=== PATIENT | male | born 1950 | race Caucasian/White ===

== ENCOUNTER 2020-09-27 12:16 | Outpatient (NON) | payer BC, SELFPAY ==
[2020-09-28 20:04] LABS: SARS-CoV-2 RNA PCR Negative
== END 2020-09-27 12:17 ==
PROVIDERS: PCP Family Medicine Adolescent Medicine; Visit Provider Family Medicine Adolescent Medicine
DX: Z20.828 Contact with and (suspected) exposure to other viral communicable diseases (principal); R05 Cough; R52 Pain, unspecified
CPT/HCPCS: 87635; C9803; U0003

== ENCOUNTER → 2021-03-02 14:19 | Outpatient (CLI) | payer BC, SELFPAY ==
--- NOTE | ~2021-03-02 | XR_ITS ---
EXAMINATION: XR knee RT 2V DATE: 03/02/2021 14:57 INDICATION: Right knee pain. TECHNIQUE: 2 views of right knee standing were obtained. COMPARISON: None. FINDINGS: Bone alignment is normal. No fracture. There is mild tricompartmental osteoarthritis charac terized by tiny marginal osteophytes. No knee joint effusion. IMPRESSION: 1. Mild right knee osteoarthritis. Reviewed, dictated and finalized at location B.
--- NOTE | ~2021-03-02 | XR_ITS ---
EXAMINATION: XR lumbar spine min 4V DATE: 03/02/2021 14:57 INDICATION: Lumbar spondylosis. TECHNIQUE: 5 views of lumbar spine including flexion and extension views were obtained. COMPARISON: Lumbar spine MRI 04/08/2019, thoracic spine radiographs 03/12/2013 FINDINGS: S1 is a transitional segment. There is 14 degrees levoscoliosis of lumbar spine. There is 5 mm anterolisthesis of L5 on S1. There is no abnormal motion with flexion or extension. There is mild chronic anterior wedging of T12 and L1 vertebral bodies. There is moderately decreased disc height a t L2-L3, mildly decreased disc height at L3-L4, and moderately decreased disc height at L4-L5 and L5- S1. There are endplate osteophytes at all levels. There is severe facet joint osteoarthritis in lower lumbar spine. IMPRESSION: 1. Moderate lumbar spondylosis. 2. Lumbar levoscoliosis. Reviewed, dictated and finalized at location B.
== END ==
DX: M41.9 Scoliosis, unspecified (principal); M17.11 Unilateral primary osteoarthritis, right knee
CPT/HCPCS: 72110; 73560

== ENCOUNTER → 2021-03-16 13:13 | Outpatient (CLI) | payer BC, SELFPAY ==
--- NOTE | ~2021-03-16 | MR_ITS ---
EXAMINATION: MR lumbar spine wo con DATE: 03/16/2021 14:02 INDICATION: Low back pain. Lumbar spondylosis. TECHNIQUE: Magnetic resonance imaging (MRI) of the lumbar spine was performed without intravenous con trast. Sequences included sagittal T2-weighted FSE, sagittal T2-weighted FS FSE, sagittal T1-weighted FSE, and axial T2-weighted FSE. COMPARISON: Lumbar spine MRI 04/08/2019, thoracic spine radiographs 03/12/2013 FINDINGS: There is 11 degrees levoscoliosis of lumbar spine. S1 is a transitional segment. There is 5 mm anterolisthesis of L5 on S1. Vertebral body heights are normal. There is moderately decreased dis c height at L2-L3, mildly decreased disc height at L3-L4, moderately decreased disc height at L4-L5 a nd L5-S1 with endplate remodeling. The distal spinal cord signal intensity is normal. The conus medul kaitlin is at L1. The following disc levels are specifically discussed: L1-L2: The disc does not extend beyond the endplate margin. There is mild bilateral facet joint osteo arthritis. There is no neural foraminal stenosis. There is no central canal stenosis. L2-L3: The disc is bulging. There is mild bilateral facet joint osteoarthritis. There is mild left ne ural foraminal stenosis. There is mild central canal stenosis. L3-L4: The disc is bulging and has an annular fissure. There is mild bilateral facet joint osteoarthr itis. There is mild bilateral neural foraminal stenosis. There is mild central canal stenosis. L4-L5: The disc is bulging. There is severe bilateral facet joint osteoarthritis. There is mild bilat eral neural foraminal stenosis. There is mild central canal stenosis. L5-S1: The disc is bulging with superimposed right subarticular zone extrusion. There is severe bilat eral facet joint osteoarthritis. There is moderate and mild left neural foraminal stenosis. There is mild central canal stenosis. IMPRESSION: 1. Moderate lumbar spondylosis. 2. Lumbar levoscoliosis. Reviewed, dictated and finalized at location A.
== END ==
DX: M47.816 Spondylosis without myelopathy or radiculopathy, lumbar region (principal); M41.86 Other forms of scoliosis, lumbar region
CPT/HCPCS: 72148

== ENCOUNTER → 2021-03-22 09:23 | Outpatient (CLI) | payer BC, SELFPAY ==
--- NOTE | ~2021-03-22 | MMUS_ITS ---
EXAMINATION: MM diagnostic mammo unilat RT, US breast RT limited HISTORY: Right breast fullness with tenderness for 3 months TECHNIQUE: Additional 3-D tomosynthesis images of the right breast were performed and synthetic 2-D i mages were generated. Comparison left MLO view performed. CAD analysis was submitted and interpreted. High resolution Limited right breast ultrasound was performed. COMPARISON: None BREAST PARENCHYMAL COMPOSITION: Breast composed of scattered areas of fibroglandular density FINDINGS: MAMMOGRAPHIC FINDINGS: There is gynecomastia bilaterally, asymmetrically more prominent on the right. No discrete mass, susp icious cluster of calcifications or architectural distortion. ULTRASOUND: Limited right breast ultrasound: Normal heterogeneous echotexture without focal solid or cystic mass. IMPRESSION: 1. No evidence for malignancy in the right breast. 2. Recommend follow-up clinical management for gynecomastia. BI-RADS Category 2: Benign finding(s). Reviewed, dictated and finalized at location A. IMPRESSION: 1. No evidence for malignancy in the right breast. 2. Recommend follow-up clinical management for gynecomastia. BI-RADS Category 2: Benign finding(s).
== END ==
PROVIDERS: PCP Family Medicine Adolescent Medicine; Visit Provider Family Medicine Adolescent Medicine
DX: N64.4 Mastodynia (principal); Z80.3 Family history of malignant neoplasm of breast
CPT/HCPCS: 76642; 77065

== ENCOUNTER → 2021-06-14 11:50 | Outpatient (CLI) | payer BC, MEDICARE, SELFPAY ==
--- NOTE | ~2021-06-14 | XR_ITS ---
EXAMINATION: XR chest 2V DATE: 06/14/2021 12:22 INDICATION: Right posterior chest pain. TECHNIQUE: Frontal and lateral views of the chest were obtained. COMPARISON: Chest 2 views 11/03/2013, CT abdomen and pelvis 06/14/2021 FINDINGS: The chest demonstrates clear lungs without pneumonia, pleural effusion, or pneumothorax. Th e heart size is normal. There is a moderate-sized hiatal hernia. IMPRESSION: 1. Moderate-sized hiatal hernia. Reviewed, dictated and finalized at location A.
--- NOTE | ~2021-06-14 | CT_ITS ---
EXAMINATION: CT abdomen w con DATE: 06/14/2021 12:22 INDICATION: Epigastric abdominal pain. Nausea. TECHNIQUE: Computed tomography (CT) of the abdomen was performed with 100 mL Omnipaque 350 intravenou s contrast. Automated exposure control and iterative reconstruction technique were employed. The dose -length product was 315.11 mGy-cm. COMPARISON: CT abdomen 10/07/2008 FINDINGS: The visualized portions of the lung bases demonstrate mild atelectasis. No pleural effusion . The heart size is normal. No pericardial effusion. There are calcifications of the aortic valve. Th ere is a moderate-sized sliding hiatal hernia. The liver, gallbladder, spleen, pancreas, adrenal glan ds, and left kidney are normal. There is a 7 mm stone in right kidney. There are no dilated loops of bowel. The appendix is normal. There are no pathologically enlarged lymph nodes. There is no free int raperitoneal fluid. There is severe lumbar spondylosis. Lumbar levoscoliosis is noted. IMPRESSION: 1. Moderate-sized sliding hiatal hernia. 2. Nonobstructing right kidney stone. Reviewed, dictated and finalized at location A.
[2021-06-14 12:08] LABS: Estimated Glomerular Filt Rate > 60
== END ==
PROVIDERS: PCP Family Medicine Adolescent Medicine; Visit Provider Family Medicine Adolescent Medicine
DX: R10.13 Epigastric pain (principal); M54.9 Dorsalgia, unspecified; K44.9 Diaphragmatic hernia without obstruction or gangrene; N20.0 Calculus of kidney
CPT/HCPCS: 71046; 74160; Q9967

== ENCOUNTER → 2022-03-08 13:00 | Outpatient (CLI) | payer BC, MEDICARE, SELFPAY ==
--- NOTE | ~2022-03-08 | CT_ITS ---
EXAMINATION: CT abdomen pelvis w con DATE: 03/08/2022 13:27 INDICATION: Left upper quadrant abdominal pain. Hiatal hernia. Diarrhea. TECHNIQUE: Computed tomography (CT) of the abdomen and pelvis was performed with 100 mL Omnipaque 300 intravenous contrast. Automated exposure control and iterative reconstruction technique were employe d. The dose-length product was 580.95 mGy-cm. COMPARISON: CT abdomen 06/14/2021 FINDINGS: The visualized portions of the lung bases demonstrate mild atelectasis. No pleural effusion . The heart size is normal. There are calcifications of aortic valve. No pericardial effusion. There is a moderate-sized sliding hiatal hernia. The liver, spleen, gallbladder, pancreas, adrenal glands, and left kidney are normal. There is an 8 mm stone in right kidney. There are no dilated loops of bow el. The appendix is normal. There are no pathologically enlarged lymph nodes. There is no free intrap eritoneal fluid. There is severe lumbar spondylosis. There is mild chronic anterior wedging of T11 an d T12 vertebral bodies. IMPRESSION: 1. Moderate-sized sliding hiatal hernia. 2. Nonobstructing right kidney stone. Reviewed, dictated and finalized at location A.
[2022-03-08 13:17] LABS: Estimated Glomerular Filt Rate > 60
== END ==
PROVIDERS: PCP Family Medicine Adolescent Medicine; Visit Provider Internal Medicine Gastroenterology
DX: K44.9 Diaphragmatic hernia without obstruction or gangrene (principal); R19.7 Diarrhea, unspecified; R10.11 Right upper quadrant pain; N20.0 Calculus of kidney
CPT/HCPCS: 74177; Q9967

== ENCOUNTER → 2022-07-15 10:48 | Outpatient (CLI) | payer BC, SELFPAY ==
--- NOTE | ~2022-07-15 | US_ITS ---
US scrotum doppler INDICATION: Epididymitis. TECHNIQUE: Testicular sonogram utilizing grayscale and color Doppler FINDINGS: The testes are normal in size and appearance. No focal lesions are seen. The right testes measures 4.5 x 2.3 x 3.5 cm centimeters, and the left testis measures 5.4 x 2.5 x 3.4 cm cm. There is normal vascular flow to both testes. There are bilateral epididymal cysts, largest in the left epididymis measuring up to 2.2 cm. There is a small right hydrocele. IMPRESSION: 1. Small right hydrocele. 2: Small bilateral epididymal cysts. Reviewed, dictated and finalized at location B.
== END ==
PROVIDERS: PCP Family Medicine Adolescent Medicine; Visit Provider Nurse Practitioner Adult Health
DX: N45.1 Epididymitis (principal); N43.3 Hydrocele, unspecified
CPT/HCPCS: 76870; 93976

== ENCOUNTER → 2023-05-24 11:34 | Outpatient (CLI) | payer BC, SELFPAY ==
--- NOTE | ~2023-05-24 | MR_ITS ---
MRI of the lumbar spine Clinical History: Spondylosis Technique: Axial T2-weighted images, and sagittal T1-weighted, T2-weighted, and T2 fat-sat images wer e acquired. COMPARISON: 03/16/2021 Findings: No fracture identified. 7 mm anterolisthesis of L5 over S1 is present. No suspicious bone m arrow signal abnormality seen. At L1-L2, there is no disc bulge or herniation. No spinal canal stenosis or neural foraminal narrowin g. At L2-L3, there is moderate degenerative disc narrowing with minimal disc bulge and mild facet arthro karli. No central canal stenosis. There is moderate left neural foraminal narrowing. Right neural for amen preserved. At L3-L4, there is diffuse disc bulge and mild facet arthropathy. No central canal stenosis. There is mild to moderate right neural foraminal narrowing. Left neural foramen preserved. At L4-L5, there is diffuse disc bulge and moderate facet arthropathy. No central canal stenosis. Ther e is moderate to advanced right neural foraminal narrowing. Left neural foramen preserved. At L5-S1, there is disc uncovering/disc bulge with severe facet arthropathy. No central canal stenosi s. There is moderate to severe right neural foraminal narrowing, and moderate left neural foraminal n arrowing. Paravertebral soft tissues are unremarkable. Impression: 7 mm anterolisthesis of L5 over S1. Moderate degenerative spondylosis, as above. Reviewed, dictated and finalized at [facility]. Impression: 7 mm anterolisthesis of L5 over S1. Moderate degenerative spondylosis, as above.
== END ==
PROVIDERS: PCP Family Medicine Adolescent Medicine
DX: M47.26 Other spondylosis with radiculopathy, lumbar region (principal); G89.29 Other chronic pain; Z74.09 Other reduced mobility
CPT/HCPCS: 72148

== ENCOUNTER 2023-06-09 13:30 | Outpatient (CLI) | payer BC, SELFPAY ==
--- NOTE | ~2023-06-09 | CT_ITS ---
EXAMINATION: CT abdomen pelvis wo con DATE: 06/09/2023 13:51 INDICATION: Right flank pain. Hematuria. TECHNIQUE: Computed tomography (CT) of the abdomen and pelvis was performed without intravenous contr ast. Automated exposure control and iterative reconstruction technique were employed. The dose-length product was 188.38 mGy-cm. COMPARISON: CT abdomen and pelvis 03/08/2022 FINDINGS: The visualized portions of the lung bases demonstrate mild atelectasis. No pleural effusion . There is left atrial enlargement of the heart. No pericardial effusion. There are coronary artery c alcifications. There are calcifications of the aortic valve. There is a moderate-sized sliding hiatal hernia. The liver, gallbladder, spleen, pancreas, and adrenal glands are normal. There is cortical t hinning of the kidneys. There is mild right hydronephrosis. There is a 6 mm stone in proximal right u reter. There is diverticulosis of the colon without evidence of diverticulitis. There are no dilated loops of bowel. The appendix is normal. Aortic atherosclerosis is noted. There are no pathologically enlarged lymph nodes. There is no free intraperitoneal fluid. There is lumbar levoscoliosis and sever e spondylosis. There are bridging endplate osteophytes at multiple levels in the spine, consistent wi th diffuse idiopathic skeletal hyperostosis (DISH). IMPRESSION: 1. 6 mm stone in proximal right ureter with mild right hydronephrosis. 2. Moderate-sized sliding hiatal hernia. Reviewed, dictated and finalized at location A.
== END 2023-06-09 13:31 | disposition home or self-care (01) ==
PROVIDERS: PCP Family Medicine Adolescent Medicine; Visit Provider Family Medicine Adolescent Medicine
DX: R10.31 Right lower quadrant pain (principal); R31.9 Hematuria, unspecified; N20.1 Calculus of ureter; K44.9 Diaphragmatic hernia without obstruction or gangrene
CPT/HCPCS: 74176

== ENCOUNTER → 2023-06-10 08:30 | Outpatient (CLI) | payer BC, SELFPAY ==
--- NOTE | ~2023-06-10 | XR_ITS ---
EXAMINATION: XR abdomen/kub 1V INDICATION: Calculus of the ureter TECHNIQUE: Supine views of the abdomen were obtained on 2 radiographs. COMPARISON: CT, 06/09/2023 FINDINGS: An 8 mm stone projects in the proximal right ureter lateral to the right L2 transverse proc ess. No additional urolithiasis is identified. There is a moderate volume of stool in the proximal co bert. Severe lumbar spondylosis is noted. IMPRESSION: 1. A millimeter stone in the proximal right ureter. Reviewed, dictated and finalized at location A.
== END ==
PROVIDERS: PCP Urology; Visit Provider Urology
DX: N20.1 Calculus of ureter (principal)
CPT/HCPCS: 74018

== ENCOUNTER → 2023-06-24 10:23 | Outpatient (CLI) | payer BC, MEDICARE, SELFPAY ==
--- NOTE | ~2023-06-24 | XR_ITS ---
EXAMINATION: XR abdomen/kub 1V DATE: 06/24/2023 10:40 INDICATION: Right ureteral stone. TECHNIQUE: A supine view of the abdomen on 2 radiographs was obtained. COMPARISON: CT abdomen and pelvis 06/09/2023 FINDINGS: There are no dilated loops of bowel. There is no visible urolithiasis. IMPRESSION: 1. No visible urolithiasis. Reviewed, dictated and finalized at location A. IMPRESSION: 1. No visible urolithiasis.
== END ==
PROVIDERS: PCP Family Medicine Adolescent Medicine; Visit Provider Urology
DX: N20.1 Calculus of ureter (principal)
CPT/HCPCS: 74018

== ENCOUNTER → 2023-07-01 10:35 | Outpatient (CLI) | payer BC, MEDICARE, SELFPAY ==
--- NOTE | ~2023-07-01 | XR_ITS ---
EXAM: XR lumbar spine 2-3V DATE: 07/01/2023 11:06 HISTORY: anteriolethesis . COMPARISON: 03/02/2021. FINDINGS: 5 nonrib-bearing lumbar-type vertebral bodies. S1 is a transitional segment. Atherosclerot ic aortic calcifications without evident aneurysm. 5 mm anterolisthesis at L5-S1 that worsens slightl y in flexion and reduces slightly in extension. Stable mild anterior wedge deformity at T12 and L1. M ultilevel moderate degenerative disc disease. Multilevel moderate-severe facet arthropathy with inter spinous narrowing. No fracture or dislocation. IMPRESSION: Dynamic grade 1 anterolisthesis at L5-S1. Transitional anatomy at S1. Reviewed, dictated and finalized at location K.
== END ==
PROVIDERS: PCP Family Medicine Adolescent Medicine
DX: M43.16 Spondylolisthesis, lumbar region (principal); M43.17 Spondylolisthesis, lumbosacral region
CPT/HCPCS: 72100

== ENCOUNTER 2023-08-15 11:32 | Outpatient (CLI) | payer BC, SELFPAY ==
--- NOTE | 2023-08-15 11:42 | ECG_ITS ---
Measurements Intervals [place] Rate: 68 P: 47 DE: 199 QRS: -13 QRSD: 96 T: 22 QT: 368 QTc: 392 Interpretive Statements SINUS RHYTHM WITH SINUS ARRHYTHMIA WITHIN NORMAL LIMITS NO PREVIOUS ECG AVAILABLE FOR COMPARISON Electronically Signed On 08-15-2023 15:13:41 CDT by Hollis Young M.D.
== END 2023-08-15 11:33 | disposition home or self-care (01) ==
LOC: ANHSURGERY 11:37
PROVIDERS: PCP Family Medicine Adolescent Medicine; Visit Provider Urology
DX: Z01.818 Encounter for other preprocedural examination (principal); I48.91 Unspecified atrial fibrillation
CPT/HCPCS: 93005

== ENCOUNTER 2023-08-21 00:52 | Day surgery (SDC) | payer BC, SELFPAY ==
[2023-08-14 13:19] VITALS: BMI 25.1
--- NOTE | 2023-08-14 13:20 | PC.NURSE ---
Report to the Outpatient Waiting Room, entrance under the green pavilion located off [facility], at time _0715_ on date _[id number]_. Planned Procedure Time: _0915_. Time changes happen often and if your time is changed the preop area will call you the afternoon before. - You and your visitor will be asked to self-screen and do not enter if you have any COVID symptoms. - A mask is optional within the hospital at this time. Patients may have clear liquids (water, carbonated beverages, clear teas, apple juice) until 3 hours prior to surgery with a maximum of 20 ounces. - No food from midnight until time of surgery Take the following medications with a SIP of water the morning of surgery: __Metoprolol DO NOT STOP ANY OF YOUR OTHER PRESCRIPTION MEDICATIONS PRIOR TO SURGERY ?EXCEPT THE FOLLOWING Medications to discontinue per physician Vitamins and Fish oil Date to take last makp___[id number] Please no make-up, nail bulgarian, hairspray, perfume, deodorant, or body powder the day of surgery. No jewelry (including any body piercings) or valuables the day of surgery, leave them at home. Please take a shower or bath the night before, or the morning of, surgery with an antibacterial soap. Wear comfortable, loose fitting clothing. - Jewelry must be removed prior to entering the operating room. Rings and piercings that are not removed may be cut off. - The hospital will not accept responsibility for valuables. - Please leave all valuables, including medications, at home the day of surgery. If you are going home after surgery, a licensed tractor trailer truck driver must drive you home. - NO public transportation without another adult if you receive anesthesia. - We recommend that an adult stay with you for 24 hours following discharge. - We also recommend that you do not drive, make important decision, drink alcoholic beverages, or take any drugs that were not prescribed by your health care provider for at least 24 hours after your discharge time. Follow any additional instructions given to you from your surgeon. If you or anyone in your household have experienced Covid symptoms in the past week, please notify your surgeon or the nurse liaison at the phone number below for possible testing. Telephone instructions given to _Sheltonbe__and asked if any additional questions and then verbalized understanding. Patient advised to call surgeon office or pre surgery nurse liaison [phone] if any additional questions.
[2023-08-21] VITALS (7 sets, daily range): BP systolic 119–154; BP diastolic 73–98; PULSE 54–71; RESP 12–18; TEMP 36.2–36.4; O2SAT 95–99
--- NOTE | 2023-08-21 06:25 | WPDHPUPDATE1 ---
History and Physical Update Update Date/Time: 08/21/23 06:25 History and Physical has been reviewed, including an updated exam of the patient. There are NO changes in the patient's condition. Risks, benefits, and alternatives have been discussed and questions answered. Patient agrees to proceed with procedure.
[2023-08-21] MEDS: LACTATED RINGERS 1,000 ML 30 ML IV CONT (08:12)
--- NOTE | 2023-08-21 08:50 | WPDANESEPPF ---
Anes - Initial Pre Proc Eval Procedure: Operation Date: 08/21/23 09:15 Proposed Procedures p Right Epididymectomy - Favian Francis MD Date/Time: 08/21/23 08:50 Surgeon: Favian Francis MD Pre Op Diagnosis: chronic right epididymitis Patient Data Age: 73 Gender: M Height: 1.7 m Weight: 72.5 kg Last Vital Signs Temp 36.4 C 08/21/23 08:00 Pulse 71 08/21/23 08:00 Resp 18 08/21/23 08:00 BP 154/98 H 08/21/23 08:00 Pulse Ox 98 08/21/23 08:00 O2 Del Method Room Air 08/21/23 08:00 Allergies Allergy/AdvReac Type Severity Reaction Status Date / Time No Known Allergies Allergy Verified 08/21/23 07:36 Home Medications Medication Instructions Recorded Confirmed Type famotidine 20 mg tablet 20 mg PO BID 06/28/22 08/14/23 History finasteride 5 mg tablet 5 mg PO DAILY #90 tabs 12/16/22 08/14/23 Rx metoprolol succinate 25 mg 25 mg PO DAILY #90 tabs 12/16/22 08/14/23 Rx tablet,extended release 24 hr sildenafil 50 mg tablet 50 mg PO DAILY PRN sexual activity 03/03/23 08/14/23 Rx #30 tabs acetaminophen 300 mg-codeine 30 mg 1 tablet PO QID PRN pain #60 tabs 05/13/23 08/14/23 Rx tablet ibuprofen 100 mg tablet 400 mg PO Q6H PRN Pain 08/14/23 08/21/23 History omega 1-rcu-sev-fish oil 1,000 mg 1 cap PO BID 08/14/23 08/14/23 History (120 mg-180 mg) capsule (Fish Oil) vitamin A-vitamin C-vit E-min 1 tablet PO DAILY 08/14/23 08/14/23 History tablet clonazepam 0.5 mg disintegrating 0.5 mg PO BID #60 tabs 08/15/23 08/21/23 Rx tablet Patient hx anesthesia problems: none Family hx anesthesia problems: none Results Review: All pre-operative results and documents have been reviewed as part of the pre-operative evaluation. [facility] Family History Family History Father Hypertension Mother Osteoporosis Sibling Breast cancer Other Family history of glaucoma Family history of osteoporosis Social History Social History Smoking packs per day: 1 Smoking cigarettes per day: 20.0 Years smoked: 20 Smoking pack-years: 20.00 Smoking status: Former smoker Smoking end date: 08/14/86 Alcohol intake: current Drinks per week: 7 Lack of Transportation: No Lack of Food: Never True Current Housing: I Have Housing Concerned About Future Housing: No Difficulty Paying Gas/Electric Bills: No Difficulty Paying for Meds: No Currently Unemployed: No Education: Master's Degree or Higher Difficulty w/ Childcare or Family Care: No Living arrangements: with family Spiritual care concerns: No Anes - Eval Final PreProcedure Day of Procedure 08/21/23 08:50 Patient weight: normal Heart: regular rate and rhythm Lungs: clear to auscultation Airway: Mallampati scale class II Neurological: alert and oriented Last oral intake: >/= 8 hours ASA classification: III Emergent: no Anesthetic plan: proceed Anesthesia type and monitoring: general LMA and standard monitoring Results Review: All pre-operative results and documents have been reviewed as part of the pre-operative evaluation. Informed Consent: The patient's anesthetic plan and its attendant risks and benefits were discussed with the patient/family/POA. Questions were solicited and answers provided to the satisfaction of the patient/family/POA.
[2023-08-21] MEDS: ceFAZolin 2 GM/D5W 50 ML 2 GM/50 ML BAG IVPB (09:02)
--- NOTE | 2023-08-21 09:32 | W.PM.PROC2 ---
Procedure Note - Detailed Date of Procedure 08/21/23 Pre-op Diagnosis Chronic right epididymitis Post-op Diagnosis Same Procedure Performed Right epididymectomy Surgeon Favian Francis MD Anesthesia General Description of Procedure The patient was brought to the operative suite where he was prepped and draped in routine sterile fashion while in a supine position after the uneventful induction of a general LMA anesthetic. An incision was made in the median raphe of the scrotum and dissection was carried into the right tunica vaginalis. The testicle was examined and found to be both visibly and palpably normal. there was, however, notable inflammation and induration around the right epididymis, particularly in the globus major. The entire epididymis was indurated, consistent with chronic infection. The epididymis was excised in its entirety using electrocautery. The testicle was returned to an orthotopic positioned. The dartos muscle was closed with a running 4-0 chromic and the skin was likewise closed with a running 4-0 chromic. Estimated blood loss throughout this procedure was 5cc. Patient tolerated the procedure well and was taken to the recovery room in good condition. Pathology None sent Complications No immediate complications Condition Stable
[2023-08-21] MEDS: fentaNYL CITRATE INJ (*CRX) 100 MCG/2 ML VIAL 25 MCG IV PUSH ×6 (09:56→10:13)
[2023-08-21] MEDS: oxyCODONE HCL (*CRX) 5 MG TAB IR PO (11:01)
== END 2023-08-21 11:14 | disposition home or self-care (01) ==
PROVIDERS: PCP Family Medicine Adolescent Medicine; Visit Provider Urology
PROC: (CPT 54860; principal; 2023-08-21 09:15)
DX: N45.1 Epididymitis (principal); N43.3 Hydrocele, unspecified; E78.00 Pure hypercholesterolemia, unspecified; I10 Essential (primary) hypertension; K21.9 Gastro-esophageal reflux disease without esophagitis; Z79.82 Long term (current) use of aspirin; Z87.891 Personal history of nicotine dependence; Z80.3 Family history of malignant neoplasm of breast
CPT/HCPCS: 54860; 88304; A9270; J0690; J1100; J2405; J2704; J3010; J7120

== ENCOUNTER 2024-02-10 15:19 | Outpatient (CLI) | payer BC, SELFPAY ==
--- NOTE | ~2024-02-10 | XR_ITS ---
EXAMINATION: XR chest 2V 02/10/2024 15:31 INDICATION: Cough PROCEDURE: 2 view chest COMPARISON: No prior studies for comparison. FINDINGS: The lungs are clear. The cardiomediastinal silhouette is within normal limits. There are no pleural effusions. There is no pneumothorax suspected. IMPRESSION: 1: NO ACUTE CARDIOPULMONARY DISEASE. Reviewed, dictated and finalized at location B.
== END 2024-02-10 15:20 ==
LOC: MICIMG 15:21
PROVIDERS: PCP Family Medicine Adolescent Medicine; Visit Provider Family Medicine Adolescent Medicine
DX: R05.9 Cough, unspecified (principal)
CPT/HCPCS: 71046

== ENCOUNTER 2024-05-19 00:24 | Day surgery (SDC) | payer BC, SELFPAY ==
[2024-05-17 14:15] VITALS: BMI 25.9
--- NOTE | 2024-05-17 14:39 | PC.NURSE ---
Report to the Outpatient Waiting Room, entrance under the green pavilion located off [facility], at time 06:00am__ on date _05/19/24 . Planned Procedure Time: _07:30am . Time changes happen often and if your time is changed the preop area will call you the afternoon before. - You and your visitor will be asked to self-screen and do not enter if you have any COVID symptoms. - A mask is optional within the hospital at this time. Patients may have clear liquids (water, carbonated beverages, clear teas, apple juice) until 3 hours prior to surgery ( 04:30am) with a maximum of 20 ounces. - No food from midnight until time of surgery Take the following medications with a SIP of water the morning of surgery: Metoprolol per Anesthesia DO NOT STOP ANY OF YOUR OTHER PRESCRIPTION MEDICATIONS PRIOR TO SURGERY ?EXCEPT THE FOLLOWING Medications to discontinue per physician __Per pt he stopped all vitamins and supplements on his own last 05/12/24 Please no make-up, nail indonesian, hairspray, perfume, deodorant, or body powder the day of surgery. No jewelry (including any body piercings) or valuables the day of surgery, leave them at home. Please take a shower or bath the night before, or the morning of, surgery with an antibacterial soap. Wear comfortable, loose fitting clothing. - Jewelry must be removed prior to entering the operating room. Rings and piercings that are not removed may be cut off. - The hospital will not accept responsibility for valuables. - Please leave all valuables, including medications, at home the day of surgery. If you are going home after surgery, a licensed food mobile driver must drive you home. - NO public transportation without another adult if you receive anesthesia. - We recommend that an adult stay with you for 24 hours following discharge. - We also recommend that you do not drive, make important decision, drink alcoholic beverages, or take any drugs that were not prescribed by your health care provider for at least 24 hours after your discharge time. Follow any additional instructions given to you from your surgeon. If you or anyone in your household have experienced Covid symptoms in the past week, please notify your surgeon or the nurse liaison at the phone number below for possible testing. Telephone instructions given to ____patient and asked if any additional questions and then verbalized understanding. Patient advised to call surgeon office or pre surgery nurse liaison [phone] if any additional questions.
--- NOTE | 2024-05-17 14:58 | PC.NURSE ---
Pt states he has significant family history of Vfib- one sister from VF and other sister has Defibrillator
[2024-05-19] VITALS (8 sets, daily range): BP systolic 126–143; BP diastolic 67–80; PULSE 65–77; RESP 7–20; TEMP 36.2–36.3; O2SAT 94–99
[2024-05-19] MEDS: ACETAMINOPHEN 500 MG TABLET 1000 MG PO (06:50)
[2024-05-19] MEDS: LACTATED RINGERS 1,000 ML 30 ML IV CONT (06:51)
--- NOTE | 2024-05-19 07:12 | WPDANESEPPF ---
Anes - Initial Pre Proc Eval Procedure: Operation Date: 05/19/24 07:30 Proposed Procedures p Right Orchiectomy, Inguinal Approach - Zeke Casper MD Date/Time: 05/19/24 07:12 Surgeon: Zeke Casper MD Pre Op Diagnosis: Rt Orchalgia Patient Data Age: 74 Gender: M Height: 1.7 m Weight: 74.2 kg Last Vital Signs Temp 97.3 F L 05/19/24 06:30 Pulse 72 05/19/24 06:30 Resp 18 05/19/24 06:30 BP 143/79 H 05/19/24 06:30 Pulse Ox 97 05/19/24 06:30 O2 Del Method Room Air 05/19/24 06:30 Allergies Allergy/AdvReac Type Severity Reaction Status Date / Time No Known Allergies Allergy Verified 05/19/24 06:29 Home Medications Medication Instructions Recorded Confirmed Type famotidine 20 mg tablet 20 mg PO BID 06/28/22 05/19/24 History ibuprofen 100 mg tablet 400 mg PO Q6H PRN Pain 08/14/23 05/19/24 History omega 7-iso-zkt-fish oil 1,000 mg 1 cap PO DAILY 08/14/23 05/19/24 History (120 mg-180 mg) capsule (Fish Oil) finasteride 5 mg tablet 5 mg PO DAILY #90 tabs 11/09/23 05/19/24 Rx vit A 7,160 unit-vit C 113 mg-vit 1 tablet PO DAILY 12/08/23 05/19/24 History E 100 bdob-ysyv-okbyxb tablet acetaminophen 300 mg-codeine 30 mg 1 tablet PO QID PRN pain #60 tabs 12/31/23 05/19/24 Rx tablet clonazepam 0.5 mg disintegrating 0.5 mg PO BID #60 tabs 03/23/24 05/19/24 Rx tablet latanoprost 0.005 % eye drops 1 drp EACH EYE HS 05/17/24 05/19/24 History (Xalatan) metoprolol succinate 25 mg 12.5 mg PO DAILY 05/17/24 05/19/24 History tablet,extended release 24 hr Patient hx anesthesia problems: none Family hx anesthesia problems: none Results Review: All pre-operative results and documents have been reviewed as part of the pre-operative evaluation. [facility] Surgical History Surgical History (Updated 08/21/23 @ 11:03 by Shabbir White MD) History of epididymectomy (08/2023) right Family History Family History Father Hypertension Mother Osteoporosis Sibling Breast cancer Other Family history of glaucoma Family history of osteoporosis Social History Social History Smoking packs per day: 1.25 Smoking cigarettes per day: 25.0 Years smoked: 20 Smoking pack-years: 25.00 Smoking status: Former smoker Tobacco type: cigarettes Smoking end date: 08/14/86 Alcohol intake: current Drinks per week: 7 Lack of Transportation: No Lack of Food: Never True Current Housing: I Have Housing Concerned About Future Housing: No Difficulty Paying Gas/Electric Bills: No Difficulty Paying for Meds: No Currently Unemployed: No Education: Master's Degree or Higher Difficulty w/ Childcare or Family Care: No Living arrangements: with family Additional living arrangements comments: Spiritual care concerns: No Anes - Eval Final PreProcedure Day of Procedure 05/19/24 07:12 Patient weight: normal Heart: regular rate and rhythm Lungs: clear to auscultation Airway: Mallampati scale class II Neurological: alert and oriented Last oral intake: >/= 8 hours ASA classification: III Emergent: no Anesthetic plan: proceed Anesthesia type and monitoring: general LMA and standard monitoring Results Review: All pre-operative results and documents have been reviewed as part of the pre-operative evaluation. Informed Consent: The patient's anesthetic plan and its attendant risks and benefits were discussed with the patient/family/POA. Questions were solicited and answers provided to the satisfaction of the patient/family/POA.
--- NOTE | 2024-05-19 07:39 | WPDHPUPDATE1 ---
History and Physical Update Update Date/Time: 05/19/24 07:39 History and Physical has been reviewed, including an updated exam of the patient. There are NO changes in the patient's condition. Risks, benefits, and alternatives have been discussed and questions answered. Patient agrees to proceed with procedure.
--- NOTE | 2024-05-19 07:39 | PM.IMHP ---
H&P: HPI History of Present Illness Date/Time: 05/19/24 07:39 Chief Complaint: Right orchalgia PMFSH Surgical History Surgical History (Updated 08/21/23 @ 11:03 by Shabbir White MD) History of epididymectomy (08/2023) right Family History Family History Father Hypertension Mother Osteoporosis Sibling Breast cancer Other Family history of glaucoma Family history of osteoporosis Social History Social History Smoking packs per day: 1.25 Smoking cigarettes per day: 25.0 Years smoked: 20 Smoking pack-years: 25.00 Smoking status: Former smoker Tobacco type: cigarettes Smoking end date: 08/14/86 Alcohol intake: current Drinks per week: 7 Lack of Transportation: No Lack of Food: Never True Current Housing: I Have Housing Concerned About Future Housing: No Difficulty Paying Gas/Electric Bills: No Difficulty Paying for Meds: No Currently Unemployed: No Education: Master's Degree or Higher Difficulty w/ Childcare or Family Care: No Living arrangements: with family Additional living arrangements comments: Spiritual care concerns: No Meds Home Medications and Allergies Home Medications Medication Instructions Recorded Confirmed Type famotidine 20 mg tablet 20 mg PO BID 06/28/22 05/19/24 History ibuprofen 100 mg tablet 400 mg PO Q6H PRN Pain 08/14/23 05/19/24 History omega 8-tse-jul-fish oil 1,000 mg 1 cap PO DAILY 08/14/23 05/19/24 History (120 mg-180 mg) capsule (Fish Oil) finasteride 5 mg tablet 5 mg PO DAILY #90 tabs 11/09/23 05/19/24 Rx vit A 7,160 unit-vit C 113 mg-vit 1 tablet PO DAILY 12/08/23 05/19/24 History E 100 skxf-zqai-aphtaz tablet acetaminophen 300 mg-codeine 30 mg 1 tablet PO QID PRN pain #60 tabs 12/31/23 05/19/24 Rx tablet clonazepam 0.5 mg disintegrating 0.5 mg PO BID #60 tabs 03/23/24 05/19/24 Rx tablet latanoprost 0.005 % eye drops 1 drp EACH EYE HS 05/17/24 05/19/24 History (Xalatan) metoprolol succinate 25 mg 12.5 mg PO DAILY 05/17/24 05/19/24 History tablet,extended release 24 hr Allergies Allergy/AdvReac Type Severity Reaction Status Date / Time No Known Allergies Allergy Verified 05/19/24 06:29 Vital Signs Vital Signs - 24 hr 05/19/24 06:30 Temperature 36.3 C L Pulse Rate 72 Respiratory Rate 18 Blood Pressure 143/79 H Pulse Oximetry 97 Oxygen Delivery Room Air Exam Narrative: Right testicular and epididymal discomfort, normal left testes and epididymis Assessment and Plan Assessment and plan (1) Scrotal pain: Code(s): N50.82 - Scrotal pain Status: Acute Plan Plan right subinguinal orchiectomy - risks, benefits and alternatives reviewed & pt agrees to proceed
[2024-05-19] MEDS: ceFAZolin 2 GM/D5W 50 ML 2 GM/50 ML BAG IVPB (07:47)
[2024-05-19] MEDS: BUPivacaine HCL 0.5% 10 ML AMP 20 ML INFILTRATE (07:47)
--- NOTE | 2024-05-19 08:39 | W.PM.PROC2 ---
Procedure Note - Detailed Date of Procedure 05/19/24 Pre-op Diagnosis Rt Orchalgia Post-op Diagnosis Same Procedure Performed Right subinguinal orchiectomy Surgeon Zeke Casper MD Anesthesia General Description of Procedure Informed consent was obtained. Patient taken the operating. He was given preoperative IV antibiotics. He was induced with anesthesia. He was prepped and draped normal sterile fashion. A 3cm incision was made over the right inguinal ring. We dissected down identified the spermatic cord was encircled with a [place] drain. We then brought the testicle up to the incision and used electrocautery to dissect through cremaster attachments. There was good hemostasis. The testicle was palpated there was an indurated and cystic epididymal head. No other abnormality palpated in the testicle. We then dissected the spermatic cord up to the external ring. The cord was clamped and cut. Right Testicle and cord were sent as specimen. The spermatic cord was then oversewn with multiple 0 silk sutures. There was good hemostasis. One suture was left long for future identification if necessary. The spermatic cord was then released and returned to inside the inguinal ring. We irrigated copiously. There was good hemostasis. We then closed Franko's fascia with 2-0 Vicryl suture. Deep dermal layers closed with 3-0 Vicryl suture. Skin was closed with a subcuticular 4-0 Monocryl closure. Surgical glue applied. Scrotal support was placed. Patient was taken to recovery room stable condition Estimated Blood Loss 5 Drains No Packing No Pathology Yes Complications No immediate complications Condition Stable Disposition PACU
[2024-05-19] MEDS: oxyCODONE HCL (*CRX) 5 MG TAB IR PO (09:30)
== END 2024-05-19 10:19 | disposition home or self-care (01) ==
PROVIDERS: PCP Family Medicine Adolescent Medicine; Visit Provider Urology
PROC: (CPT 54520; principal; 2024-05-19 07:30)
DX: N43.3 Hydrocele, unspecified (principal); N44.8 Other noninflammatory disorders of the testis; N50.82 Scrotal pain; Z87.891 Personal history of nicotine dependence
CPT/HCPCS: 54520; 88305; A9270; J0690; J2250; J3010; J7120

== ENCOUNTER 2024-06-28 15:36 | Outpatient (CLI) | payer BC, SELFPAY ==
--- NOTE | ~2024-06-28 | MR_ITS ---
EXAMINATION: MR lumbar spine wo con DATE: 06/28/2024 16:12 INDICATION: Sciatica, right-sided. TECHNIQUE: Magnetic resonance imaging (MRI) of the lumbar spine was performed without intravenous con trast. Sequences included sagittal T2-weighted FSE, sagittal T2-weighted FS FSE, sagittal T1-weighted FSE, and axial T2-weighted FSE. COMPARISON: Lumbar spine MRI 05/24/2023 FINDINGS: There is 12 degrees levoscoliosis of lumbar spine. S1 is a transitional segment. There is 6 mm anterolisthesis of L5 on S1. There is mild chronic anterior wedging of T12 vertebral body. There is moderately decreased disc height at L2-L3, mildly decreased disc height at L3-L4, and severely dec reased disc height at L4-L5 and L5-S1. The distal spinal cord signal intensity is normal. The conus m edullaris is at L1. The following disc levels are specifically discussed: L1-L2: The disc does not extend beyond the endplate margin. There is mild bilateral facet joint osteo arthritis. There is no neural foraminal stenosis. There is no central canal stenosis. L2-L3: The disc is bulging and has an annular fissure. There is mild bilateral facet joint osteoarthr itis. There is mild bilateral neural foraminal stenosis. There is mild central canal stenosis. L3-L4: The disc is bulging. There is mild bilateral facet joint osteoarthritis. There is mild bilater al neural foraminal stenosis. There is mild central canal stenosis. L4-L5: The disc is bulging. There is severe right and mild left facet joint osteoarthritis. There is moderate right and mild left neural foraminal stenosis. There is mild central canal stenosis. L5-S1: The disc is bulging. There is severe bilateral facet joint osteoarthritis. There is mild bilat eral neural foraminal stenosis. There is mild central canal stenosis. IMPRESSION: 1. Severe lumbar spondylosis, stable from 05/24/2023. 2. Lumbar levoscoliosis. Reviewed, dictated and finalized at location A.
== END 2024-06-28 15:37 | disposition home or self-care (01) ==
LOC: MICIMG 15:37
PROVIDERS: PCP Family Medicine Adolescent Medicine; Visit Provider Family Medicine Adolescent Medicine
DX: M54.31 Sciatica, right side (principal); M43.06 Spondylolysis, lumbar region; M41.86 Other forms of scoliosis, lumbar region
CPT/HCPCS: 72148

== ENCOUNTER 2024-09-06 12:28 | Outpatient (CLI) | payer BC, SELFPAY ==
--- NOTE | ~2024-09-06 | MR_ITS ---
EXAMINATION: MR cervical spine wo con DATE: 09/06/2024 13:05 INDICATION: Cervical radiculopathy. Hyperreflexia. TECHNIQUE: Magnetic resonance imaging (MRI) of the cervical spine was performed without intravenous c ontrast. COMPARISON: Cervical spine radiographs 05/03/2014 FINDINGS: There is 2 mm anterolisthesis of C4 on C5 and 2 mm retrolisthesis of C5 on C6. Vertebral flako dy heights are normal. There is severely decreased disc height at C5-C6 and C6-C7. The spinal cord si gnal intensity is normal. The following disc levels are specifically discussed: C2-C3: The disc does not extend beyond the endplate margin. There is moderate right uncovertebral tomy nt osteoarthritis. There is no facet joint osteoarthritis. There is mild right neural foraminal steno sis. There is no central canal stenosis. C3-C4: The disc does not extend beyond the endplate margin. There is moderate bilateral uncovertebral joint osteoarthritis. There is moderate left facet joint osteoarthritis. There is moderate right and mild left neural foraminal stenosis. There is no central canal stenosis. C4-C5: There is a central protrusion. There is mild right and moderate left uncovertebral joint osteo arthritis. There is moderate right and severe left facet joint osteoarthritis. There is mild right an d moderate left neural foraminal stenosis. There is mild central canal stenosis. C5-C6: The disc is bulging. There is severe bilateral uncovertebral joint osteoarthritis. There is mi ld bilateral facet joint osteoarthritis. There is severe bilateral neural foraminal stenosis. There i s mild central canal stenosis. C6-C7: The disc is bulging. There is severe bilateral uncovertebral joint osteoarthritis. There is se kriss bilateral facet joint osteoarthritis. There is moderate bilateral neural foraminal stenosis. The re is mild central canal stenosis. C7-T1: The disc does not extend beyond the endplate margin. There is no uncovertebral joint osteoarth ritis. There is severe right and moderate left facet joint osteoarthritis. There is mild right neural foraminal stenosis. There is no central canal stenosis. IMPRESSION: 1. Severe cervical spondylosis. Reviewed, dictated and finalized at location A. OPERATIONS ADVISOR
== END 2024-09-06 12:29 | disposition home or self-care (01) ==
PROVIDERS: PCP Neurological Surgery; Visit Provider Family Medicine Adolescent Medicine
DX: M47.812 Spondylosis without myelopathy or radiculopathy, cervical region (principal)
CPT/HCPCS: 72141

== ENCOUNTER 2024-12-15 10:59 | Outpatient (CLI) | payer BC, SELFPAY ==
--- NOTE | ~2024-12-15 | DEXA_ITS ---
Bone Density Report Name: OSEAS MORA Age: 74 Sex: Male Ethnicity: White Date of : 1950 Indication: screening for osteoporosis; parental hip fracture; secondary osteoporosis; Referring Provider: FIDELIA HERR Study: Bone densitometry was performed. Exam Date: December 15, 2024 Accession number: [id number] Bone Density: Region BMD T-score Z-score Classification AP Spine(L1-L4) 1.154 0.6 1.6 Normal Femoral Neck (Left) 0.628 -2.2 -0.9 Osteopenia Total Hip (Left) 0.886 -1.0 -0.2 Normal Femoral Neck (Right) 0.698 -1.7 -0.4 Osteopenia Total Hip (Right) 0.901 -0.9 -0.1 Normal Total Hip Mean 0.894 -1.0 -0.2 Normal World Health Organization criteria for BMD impression classify patients as: Normal (T-score at or above -1.0), Osteopenia (T-score between -1.0 and -2.5), or Osteoporosis (T-score at or below -2.5). 10-year Fracture Risk(1): Major Osteoporotic Fracture 19% Hip Fracture 13% Reported Risk Factors: [place] (), Neck BMD=0.628, BMI=25.8, parental fracture, secondary osteoporosis (1) FRAX(R) Version 3.08. Fracture probability calculated for an untreated patient. Fracture probability may be lower if the patient has received treatment. Clinical Information Provided by Patient: Parent has had a hip fracture Has secondary osteoporosis Has used the following medications: Reclast (i.e. zoledronate), Calcium Patient maximum height was 69 No regular weight bearing exercise Impression: The patient has low bone mass, based on the Left Femoral Neck T-score. The patient has an estimated ten-year risk of hip fracture of 13% and an estimated ten-year risk of major fracture of 19%, based on the WHO FRAX algorithm. The patient has risk factors, including: parental hip fracture. Discussion: BONE DENSITY IS LOW AT ONE OR MORE SKELETAL SITES. THE PATIENT'S BMD AND CLINICAL RISK FACTORS CONTRIBUTE TO THIS PATIENT'S INCREASED RISK OF FRACTURE. This patient's lowest T-score is low at one or more skeletal sites. It meets the World Health Organization's (WHO) criteria for ?low bone mass? (T-score between -1.0 and -2.5). The patient's 10-year risk of hip fracture as calculated by FRAX exceeds the threshold where pharmacological therapy is recommended by the National Osteoporosis Foundation (NOF). However, all treatment decisions require clinical judgment and consideration of individual patient factors, including patient preferences, comorbidities, previous drug use, risk factors not captured in the FRAX model (e.g., frailty, falls, vitamin D deficiency, increased bone turnover, interval significant decline in bone density) and possible under or overestimation of fracture risk by FRAX. The patient should follow a healthful lifestyle (good nutrition with adequate calcium and vitamin D, and appropriate weight-bearing exercise). Follow-Up: Consider repeating this study in 2 years to reassess this patient's status, or sooner if there is some new clinical indication. Reported by: RUDY on 12/15/2024 11:34:00 AM. Reviewed, dictated and finalized at location [facility]Trang WILSON
--- OUTSIDE RECORDS SUMMARY | 2024-12-15 12:51 | XMS_ITS | Encounter Summary ---
Author Organization [facility] Healthcare Address [address] [place] [address] Care Team Providers Care Price Analyst Name Role Phone Shabbir White MD Primary Care Prov ider Encounter Details Date Type Department Care Team (Late st Contact Info) Description 11/30/2021 Telephone [facility] Radiology [address] [facility] [address] [place] [id number] Kenna Boudreaux, RT Social History Tobacco Use Types Packs/Day Years Used Date Smoking Tobacco: Former Cigarettes 1 16 1 970 - 1985 Smokeless Tobacco: Never Alcohol Use Standard Drinks/Week Comments Yes 1 (1 standard drink = 0.6 oz pur e alcohol) nightly AUDIT-C Answer Date Recorded Q1: How often do you have a drink containing alcohol? 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
--- OUTSIDE RECORDS SUMMARY | 2024-12-15 12:51 | XMS_ITS | Clinical Summary ---
Author Organization [facility] Address [address], [address] [address] Phone Care Team Providers Care College And Career Counselor Name Role Phone Shabbir White MD Primary Care Provider + Quique Smiley DO Unavailable [phone] Allergies No known active allergies Medications polyethylene glycol (MIRALAX) Powder Mix the entire bottle with 64 oz of a clear liquid. Use as directed by the office for colonoscopy prep. 255 g 0 6 Active polyethylene glycol (MIRALAX) Powder Use entire 255g bottle with 64oz of clear liquid as directed for colonoscopy prep. 255 g 0 6 Active raNITIdine (ZANTAC) 150 MG Tablet Take 150 mg by mouth 2 times daily. Active finasteride (PROSCAR) 5 MG Tablet Take 5 mg by mouth daily. Active metoprolol tartrate (LOPRESSOR) 12.5 mg Tablet Take 25 mg by mouth daily. Active clonazePAM (KLONOPIN) 0.5 MG Tablet Take 0.5 mg by mouth nightly. Active aspirin EC 81 MG Tablet Delayed Response Take 81 mg by mouth daily. Active Ibuprofen 200 MG Capsule Take 3 Caps by mouth 3 times daily. Active Calcium Acetate, Phos Binder, (CALCIUM ACETATE PO) Take 300 mg by mouth 2 times daily. Active Cholecalciferol (VITAMIN D3) 1000 UNIT Tablet Take 1 Tab by mouth daily. Active Ergocalciferol (VITAMIN D2 PO) Take 50,000 Units by mouth every 30 days. Active latanoprost (XALATAN) 0.005 % Solution Place 1 Drop in affected eye(s) nightly. Active acetaminophen-c odeine (TYLENOL/CODEIN E #3) 300-30 MG Tablet Take 1-2 Tabs by mouth as needed for Pain. Active Active Problems No known active problems Family History Medical History Relation Name Comments Breast Cancer Sister Relation Name Status Comments Sister Social History Tobacco Use Types Packs/Day Years Used Date Smoking Tobacco: Former Cigarettes 1 20 1 10/30/1995 - 08/30/2016 Smokeless Tobacco: Never Alcohol Use Standard Drinks/Week Comments Yes 12 (1 standard drink = 0.6 oz pu re alcohol) Sex and Gender Information Value Date Recorded Sex Assigned at Not on file Legal Sex Male 8:47 PM CDT Gender Identity Not on file Sexual Orientation Not on file Plan of Treatment Health Maintenance Due Date Last Done Comments Hepatitis C Virus (HCV) Screening 1950 TdaP Immunization 1950 Cologuard 2000 Immunochemical Fecal Occult Blood 2000 Pneumococcal Immunization (5 0+ years) (1 of 1 - PCV) 2000 Zoster Immunization (1 of 2) 2000 Influenza Immunization (#1) 06/20/202406/22, 07/21/2020 SARS-COV-2 Immunization ( - 2023- season) 2024 07/19/2021, 12/22/2020, 11/24/2020 Respiratory Syncytial Virus (RSV) Immunization (Adult) (1 - 1-dose 75+ series) 2025 Colonoscopy 08/15/2026 08/15/2016 Colorectal Cancer Screening 08/15/2026 08/15/2016 Hepatitis B Immunization Aged Out No longer eligible based on patient's age to complete this topic Meningococcal Immunization (ACWY) Aged Out No longer eligible b ased on patient's age to complete this topic Rotavirus Immunization Aged Out No lo nger eligible based on patient's age to complete this topic Procedures Procedure Name Priority Date/Time Associated Diagnosis Comments COLONOSCOPY Routine 08/15/2016 from Last 3 Months or Most Recently Relevant to Health Maintenance Results * COLONOSCOPY (08/15/2016) Shabbir White MD PROCEDURE/MINOR SURGICAL ORDERABLES Final Result from Last 3 Months or Most Recently Relevant to Health Maintenance Insurance [facility] Care Teams College And Career Counselor Relationship Specialty Start Date End Date Shabbir White MD [address] [place] [address] PCP - General Family Medicine 08/16/16 Quique Smiley DO [address] [place] [address] Gastroenterology 08/16/16
--- OUTSIDE RECORDS SUMMARY | 2024-12-15 12:51 | XMS_ITS | Referral Summary ---
Author Organization [facility] C Address [address] [place] [address] Care Team Providers Care Office Automation Technician Name Role Phone Shabbir White MD Primary Care Prov ider Encounters Date Type Department Care Team Description 11/12/2024 Orders Only [facility] [address] [place] [address] Eufemia Wan MD from Last 3 Months Allergies No known active allergies Medications metoprolol XL (TOPROL-XL) 25 mg 24 hr tablet take 0.5 tablet by oral route every day 0 0 09/21/20 15 Active Additional Information Patient taking differently: 12.5 mg Every morning, Indications: Atrial Arrhythmia, Reported on 11/26/2018 finasteride (PROSCAR) 5 mg tablet take 1 tablet (5MG) by oral route every day 0 07/20/20 12 Active clonazePAM (KlonoPIN) 0.5 mg disintegrating tablet nightly as needed 09/23/20 18 Active acetaminophen-code ine (TYLENOL with CODEINE #3) 300-30 mg per tablet every 6 (six) hours as needed 07/14/20 18 Active ibuprofen (ibuprofen) 200 mg tab/cap Take 400 mg by mouth 3 (three) times a day Active famotidine (PEPCID) 20 mg tablet Take 20 mg by mouth 2 (two) times a day 0 07/20/20 19 Active docosahexaenoic acid-epa 120-180 mg capsule Take 1,000 mg by mouth 2 (two) times a day Active latanoprost (XALATAN) 0.005 % ophthalmic solution Administer 1 drop into both eyes nightly 9 mL 3 08/11/20 24 Active Active Problems Problem Noted Date Diagnosed Date Irregular astigmatism of both eyes 12/11/2022 Assessment & Plan (02/03/2024 11:00 AM CDT): S/p RK OU. Pt tried scleral lenses with Dr. Rivera since last visit but d/c'd due to I&R troubles. Content with glasses for now. Assessment & Plan (09/09/2023 1:08 PM CIRCUIT RECORDER): 2/2 RK OU, patient having issues with I/R and having other health issues Would like to return lenses and try again at another time. Will return [place] lenses and RTC for refit in future Continue care with Dr. Lo PRN Assessment & Plan (07/04/2023 3:33 PM CDT): 2/2 RK OU, BCVA today 20/30 +/- OU Today: OD: dot at 290. 200um central, lens de-centered slightly inferior with more clearance inf/less sup. Good haptic alignment, no heel blanching/impingement 360. Lens does push up easily. Mildly improved from previous visit OS: dot at 120. 200um central, lens de-centered slightly inferior with more clearance inf/less sup. Good haptic alignment, no heel blanching/impingement 360. Lens does push up easily. Mildly improved form previous visit. Monitor limbal No appreciable ORx OU Trained on I/R and compliance. Dispensed lens today. Stop wearing if increased redness, lens becomes uncomfortable, decrease vision, difficulty removing. RTC 2-3 weeks, PRN with issues Assessment & Plan (06/20/2023 3:33 PM CDT): 2/2 RK OU, BCVA today 20/30 +/- OU Today: OD: dot at 290. 200um central, lens de-centered slightly inferior with more clearance inf/less sup. Good haptic alignment, no heel blanching/impingement 360. Lens does push up easily. Tighten 1/2 to try to push lens up. Monitor limbal OS: dot at 120. 200um central, lens de-centered slightly inferior with more clearance inf/less sup. Good haptic alignment, no heel blanching/impingement 360. Lens does push up easily. Tighten 3 to try to push lens up. Monitor limbal Consider 16.5 OAD at f/u, likely patient would have a lot of I/R issues with larger OAD Dot down at next exam OD Dot up at next exam OS RTC for dispense reF# [id number] Assessment & Plan (05/23/2023 4:00 PM CDT): 2/2 RK OU, possible OHx of amblyopia OD; patient states that OD (even prior to RK) has never seen as well as OS Educated patient on options, corneal GP (would need reverse kate design) vs scleral Patient concerned about dryness and comfort, will go ahead with scleral fit today Today with [place] 16.0, excellent comfort OU: OD: 450um central, minimal limbal. Slighlt toe impingement 360, better periphery with flat lens OS: 450um central, minimal limbal. Slight toe impitngement 360, better periphery with flat and better vision with FSE2 Flat periphery / FSE2 / aim for 280um central clearance with adjustments today BCVA 20/30- OD; 20/25-- OS RTC for dispense Ref# [id number] Assessment & Plan (12/11/2022 4:19 PM CIRCUIT RECORDER): Patient is s/p 1 cut RK OU and has to change between several pairs of glasses through the day due to fluctuations in refractive error. Pt has been told about scleral lenses in the past and is interested in trying them. Will consult with Dr. Rivera and schedule and evaluation. Retinal drusen of both eyes 06/05/2022 Assessment & Plan (12/11/2022 4:19 PM CIRCUIT RECORDER): Mild and stable. F/u annually. Assessment & Plan (08/02/2022 12:35 PM CDT): His fundi myopic with peripapillary atrophy and tilted optic nerve head. He also has a relatively blonde fundus. There are few small hard drusen at a perifoveal location with some myopic changes with RPE alterations. In the right eye, along the inferior arcade, there was some subretinal deposits which are small and which are also seen on the OCT. I do not believe that this change rises to the level of where I would call it non exudative AMD. We will continue observation. Assessment & Plan (06/05/2022 3:55 PM CDT): Faint hard drusen OU. Pt was concerned about this as he saw an outside provider who told him he has macular degeneration and he is concerned. I informed patient that hard drusen are a very low risk for progression to AMD and that we will continue to monitor for changes as he ages. Nasal pain 11/01/2021 Keratoconjunctivitis sicca d ue to decreased tear production, bilateral 04/19/2020 Assessment & Plan (08/11/2024 1:42 PM CDT): CPM with Refresh tears prn. Assessment & Plan (02/03/2024 11:00 AM CDT): Symptoms well managed with OTC drops prn. CPM. Assessment & Plan (11/28/2021 1:23 PM CIRCUIT RECORDER): Continue ATs prn. Assessment & Plan (05/30/2021 2:28 PM CDT): PF ATs prn. Assessment & Plan (01/31/2021 1:46 PM CDT): Well controlled with artificial tears. CPM Assessment & Plan (12/13/2020 1:16 PM CIRCUIT RECORDER): Pt feels his symptoms are well controlled with ATs alone. CPM. Assessment & Plan (04/19/2020 3:33 PM CDT): Tried ATs no relief. Discussed plugs vs restasis. Pt elects trial of restasis. 1gtt, OU, bid. F/u in 6 months. History of radial keratotomy 04/19/2020 Assessment & Plan (04/19/2020 3:34 PM CDT): 16 cut RK OU accounting for variable acuity. Pt has 5 pairs of glasses he wears throughout the day. CPM for now. Lesion of plantar nerve 11/30/2019 Plantar fascial fibromatosis 11/30/2019 Pain in joint, ankle and foot 11/30/2019 Plantar fasciitis of left foot 11/30/2019 Right knee pain 11/30/2019 Sprain of right knee 11/30/2019 Sprain of wrist 11/30/2019 Other chest pain 10/26/2019 Assessment & Plan (10/29/2019 7:17 PM CIRCUIT RECORDER): Chest pain is atypical in that it occurs only sometimes in his in various locations of his chest. I am suspicious that it is musculoskeletal, but would recommend a stress test. As his EKG is normal, imaging is not required. 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 Unreliable OCT but disc appearance is stable. CPM with latanoprost qhs OU. F/u in 6 mos for 24-2 VF + IOP. Assessment & Plan (02/03/2024 10:59 AM CDT): IOP well maintained on latanoprost qhs OU. VF stable. CPM. F/u in 6 mos for DFE with RNFL/GCC OCT. Assessment & Plan (07/24/2023 9:03 AM CDT): IOP well maintained on latanoprost qhs OU. OCT of limited reliability but stable. CPM. RTC X 6 mos for 24-2 VF + IOP ck. Assessment & Plan (12/11/2022 4:18 PM CIRCUIT RECORDER): Mild OAG vs suspect. Started on tx years ago, prior to presentation at . IOP well maintained on latanoprost qhs OU. VF stable today. CPM. F/u in 6 months for DFE with RNFL/GCC OCT. Assessment & Plan (06/05/2022 3:56 PM CDT): Mild OAG vs OAG suspect. Started on tx years ago. IOP well maintained on latanoprost qhs OU. CPM. F/u in 6 months for 24-2 VF + IOP ck. Assessment & Plan (11/28/2021 1:23 PM CIRCUIT RECORDER): Mild OAG vs suspect. IOP well controlled on 1 class. CPM with latanoprost qhs OU. F/u in 6 months for DFE with vF and OCT. Assessment & Plan (05/30/2021 2:28 PM CDT): IOP acceptable on latanoprost qhs OU.CPM F/u in 6 mos for IOP ck. Assessment & Plan (01/31/2021 1:46 PM CDT): IOP up slightly on latanoprost but still acceptable. CPM with latanoprost qhs OU. F/u in 4 months for 24-2 VF + ON OCT + DFE. Okay to switch back to travatan if latanoprost is causing irritation. Assessment & Plan (12/13/2020 1:21 PM CIRCUIT RECORDER): IOP stable on 1 class. Travatan is becoming too costly. Would like to try latanoprost. Has used in the past but stopped due to irritation but he'd like to try them again. Start latanoprost qhs OU. D/c travatan. IOP ck in 8 weeks F/u in 6 months for 24-2 VF + ON OCT + DFE. Assessment & Plan (04/19/2020 3:34 PM CDT): Stable on VF and OCT today. IOP acceptable on 1 class. CPM with travatan z qhs OU. F/u in 6 months for IOP ck, sooner prn. Assessment & Plan (06/10/2019 10:49 AM CDT): Pt experiencing irritation with Travatan Z, notices improvement in symptoms when taking trial off drops. Would like to trial zioptan. IOP acceptable today on travatan z. Switch to zioptan 1gtt OU qhs. F/u in 6 months for 24-2 VF + RNFL OCT + DFE. Subungual hemorrhage 02/17/2018 Basal cell carcinoma (BCC) of lower back 018 Angular blepharoconjunctivitis 10/09/2017 Disorder of bone 09/16/2017 Basal cell carcinoma (BCC) of face 09/02/2017 Skin neoplasm 07/01/2017 Basal cell carcinoma (BCC) of neck 07/01/2017 Infectious warts 07/01/2017 Onychomycosis 07/01/2017 Basal cell carcinoma (BCC) of back 04/29/2017 Lentigo 03/07/2017 Allergic conjunctivitis 02/27/2017 Assessment & Plan (06/10/2019 10:49 AM CDT): Possible preservative sensitivity. Trial zioptan. Basal cell carcinoma (BCC) of lower extremity Inflamed seborrheic keratosis 12/31/2016 Actinic keratosis 11/26/2016 Basal cell carcinoma (BCC) of upper extremity Basal cell carcinoma (BCC) of abdomen 10/04/2016 Basal cell carcinoma (BCC) of anterior chest Basal cell carcinoma (BCC) of skin of trunk 09/19 Carcinoma in situ of scalp and skin of neck 07/20 Ecchymosis 06/12/2016 Ocular migraine 04/16/2016 Basal cell carcinoma (BCC) 12/26/2015 Glaucoma suspect 11/21/2015 Corneal scar 11/21/2015 Assessment & Plan (08/11/2024 1:43 PM CDT): S/p 16 cut RK OU. In the process of being fit with scleral lenses. Having a lot of difficulty with lens insertion. Planning to revisit CL fitting with Dr. Rivera in the future. Assessment & Plan (07/24/2023 9:04 AM CDT): S/p 16 cut RK OU. In the process of being fit with scleral lenses. Having a lot of difficulty with lens insertion. Keep f/u with Dr. Rivera as scheduled. Assessment & Plan (06/20/2023 3:29 PM CDT): S/p RK OU Assessment & Plan (12/11/2022 4:19 PM CIRCUIT RECORDER): S/p RK OU Assessment & Plan (06/05/2022 3:57 PM CDT): S/p 16 incision RK. Stable. Observe. Assessment & Plan (11/28/2021 1:23 PM CIRCUIT RECORDER): S/p 16 incision RK OU Assessment & Plan (05/30/2021 2:28 PM CDT): Hx of RK. Observe. Squamous cell carcinoma of skin of face 11/01/19 16 History of nonmelanoma skin cancer 09/26/2015 Dysesthesia 09/30/2014 Skin cancer 08/26/2014 Vitamin D deficiency disease 11/30/2013 Pain in soft tissues of limb 06/11/2011 Osteopenia 03/25/2011 Social History Tobacco Use Types Packs/Day Years Used Date Smoking Tobacco: Former Cigarettes 1 16 1 970 - 1986 Smokeless Tobacco: Never Alcohol Use Standard Drinks/Week [...] on file Legal Sex Male 2:36 AM CIRCUIT RECORDER Gender Identity Not on file Sexual Orientation Not on file Last Filed Vital Signs Vital Sign Reading Time Taken Comments Blood Pressure 145/90 11/01/2021 9:56 AM CIRCUIT RECORDER Pulse 90 11/01/2021 9:56 AM CIRCUIT RECORDER Temperature 36.8 C (98.2 F) 03/21/2020 10:13 AM CDT Respiratory Rate - - Oxygen Saturation 96% 05/10/2021 10:53 AM CDT Inhaled Oxygen Concentration - - Weight 76 kg (167 lb 9.6 oz) 11/01/2021 9:56 AM CIRCUIT RECORDER Height 171.5 cm (5' 7.5 ) 11/01/2021 9:56 AM CIRCUIT RECORDER Body Mass Index 25.86 11/01/2021 9:56 AM CIRCUIT RECORDER Plan of Treatment Not on file Procedures Procedure Name Priority Date/Time Associated Diagnosis Comments SURGICAL PATHOLOGY Routine 11/12/2024 10 :00 AM CIRCUIT RECORDER from Last 3 Months Results * Surgical pathology (11/12/2024 10:00 AM CIRCUIT RECORDER) Skin, shave biopsy 11/12/2024 10:00 AM CIRCUIT RECORDER 11/15/2024 4:10 AM CIRCUIT RECORDER Narrative 11/16/2024 4:45 PM CIRCUIT RECORDER EPIC results best viewed via link to PDF [facility] [address] [place] [address], [address], [place] [address] [email or web address] Note to Patients: This report may contain a detailed description of human tissue sent by a health care provider to the laboratory for pathologic evaluation. The content of this report is essential for diagnosis and may provide important critical findings. This information may be unfamiliar to patients to review without a medical professional present. It is advised that the patient review this report in the presence of a health care provider who can answer questions and explain the details. FINAL REPORT Patient Information: PATIENT NAME: OSEAS GOMEZ SEX: M : 1950 (Age: 74) Specimen Information: COLLECTED: 11/12/2024 RECEIVED: 11/15/2024 REPORTED: 11/16/2024 Submitting Physician Information: Eufemia Mcginnis MD [facility] [place], [address] [place] [address], DERMATOPATHOLOGY REPORT RESULTS DIAGNOSIS: A. SKIN, LEFT SCIENTOLOGY, SHAVE BIOPSY: ACTINIC KERATOSIS, EXCORIATED B. SKIN, LEFT HELIX, SHAVE BIOPSY: SOLAR ELASTOSIS AND TELANGIECTASES Note: There is no evidence of a neoplasm in these sections. Multiple sections have been cut and studied. C. SKIN, RIGHT POSTAURICULAR NECK, SHAVE BIOPSY: SQUAMOUS CELL CARCINOMA IN SITU D. SKIN, RIGHT CLAVICLE, SHAVE BIOPSY: SEBORRHEIC KERATOSIS ag/lac By this signature, I attest that the above diagnosis is based upon my personal examination of the slides(and/or other material indicated in the diagnosis). Tracie Umana M.D. Report Electronically Reviewed and Signed Out By Tracie Umana M.D. 11/16/2024 16:45:22 CLINICAL INFORMATION A-D. THIN PINK SCALY PAPULE; AK VS SCC VS BCC SPECIMEN DATA MICROSCOPIC DESCRIPTION: A. Buds of atypical keratinocytes emanate from the undersurface of the epidermis. There is orthokeratotic and/or parakeratotic scale. (L57.0) B. There is abundant, blue elastotic material and dilated vessels within the upper part of the dermis. (L57.8) C. Atypical keratinocytes are present throughout the entire thickness of the epidermis. (D04.9) D. There is hyperkeratosis, papillated and reticulated epithelial hyperplasia and horn pseudocysts. (L82.1) GROSS DESCRIPTION: A. Received in a formalin-containing bottle is a superficial fragment of pale west, finely scaling, and semi-translucent skin measuring 0.3 by 0.3 by 0.1 cm. The surgical margin is inked blue. The specimen is sectioned into 2 pieces and submitted entirely in a single cassette. Due to shrinkage, measurements may be different than those at the time of procedure. B. Received in a formalin-containing bottle is a superficial fragment of pale west, finely scaling, and semi-translucent skin measuring 0.4 by 0.2 by 0.1 cm. The surgical margin is inked blue. The specimen is sectioned into 1 pieces and submitted entirely in a single cassette. Due to shrinkage, measurements may be different than those at the time of procedure. C. Received in a formalin-containing bottle is a superficial fragment of pale west, finely scaling, and semi-translucent skin measuring 0.5 by 0.4x0.1 by # cm. The surgical margin is inked blue. The specimen is sectioned into 2 pieces and submitted entirely in a single cassette. Due to shrinkage, measurements may be different than those at the time of procedure. D. Received in a formalin-containing bottle is a superficial fragment of pale west, finely scaling, and semi-translucent skin measuring 0.5 by 0.4 by 0.1 cm. The surgical margin is inked blue. The specimen is sectioned into 2 pieces and submitted entirely in a single cassette. Due to shrinkage, measurements may be different than those at the time of procedure. dh/dxv ICD-9 ZSD.1411 ZSD.1474 ZSD.27 Clerical Data A; 90775 B; 17537 C; 94590 D; 54003 The characteristics of special, immunohistochemical, and immunofluorescence stains and in-situ hybridization tests performed by the [facility] were deemed acceptable in ongoing quality assurance associate measures and in compliance with regulations drawn from the Clinical Laboratory Improvement Act nv6115 (CLIA '88). Control reactions for all stains performed were deemed adequate and appropriate by a pathologist prior to evaluation of patient tissue. Some diagnoses were rendered with the assistance of laboratory-developed tests utilizing analyte-specific reagents; the performance characteristic of these tests were determined by [facility] and are not cleared or approved by the [place] Food an Drug administration. Laboratory developed test may only be performed in a facility that is certified by the [facility] as a high-complexity laboratory under CLIA '88. These tests are used for clinical purposes and are not investigational. Eufemia Wan MD LAB PATHOLOGY ORDERABLES Final Result from Last 3 Months Insurance [facility] [employer] MEDIC[employer] [facility] Address: [address] [address] [place] [address] [facility] [employer] Member Subscriber Plan / Payer (Ef fective 2017-Present) Name:Oseas Gomez Relation to Subscriber:Spouse Name:RULA GOMEZ Date of :1953 (Home) Address: [address] [place] [address] Payer ID:[id number] (NAIC) Group ID:[id number] Type: [employer]IANCE Address: [address] [place] [id number] Care Teams Office Automation Technician Relationship Specialty Start Date End Date Shabbir White MD [address] [place] [address] PCP - General 02/07/17
--- OUTSIDE RECORDS SUMMARY | 2024-12-15 12:51 | XMS_ITS | Clinical Summary ---
Author Organization [facility] Address [address] [place] [address] Care Team Providers [employer] Flat[employer] Driver Name Role Phone Shabbir White MD Primary Care Provider [phone] Allergies No known active allergies Medications famotidine 20 MG tablet Take 1 tablet (20 mg total) by mouth 2 (two) times daily. Active finasteride 5 MG tablet Take 1 tablet (5 mg total) by mouth daily. Active clonazePAM 0.5 MG tablet Take 1 tablet (0.5 mg total) by mouth nightly as needed for Anxiety. Active fish oil (OMEGA-3 FATTY ACID) 1000 MG Cap capsule Take 1 capsule (1,000 mg total) by mouth 2 (two) times daily. Active ibuprofen 400 MG tablet Take 1 tablet (400 mg total) by mouth every 6 (six) hours as needed for Pain. Active metoprolol succinate ER 25 MG 24 hr tablet Take 0.5 tablets (12.5 mg total) by mouth daily. Active latanoprost (XALATAN) 0.005 % ophthalmic solution INSTILL 1 DROP INTO EACH EYE NIGHTLY 06/11/2023 Active Immunizations Name Administration Dates Next Due Fluzone High Dose - >Age 65 (Prefilled Syringe) 07/21/2020 Family History Medical History Relation Comments None Father Heart Disease Mother Relation Status Comments Father Mother Social History Tobacco Use Types Packs/Day Years Used Date Smoking Tobacco: Former Cigarettes 1 20 1 966 - 1985 Smokeless Tobacco: Never Alcohol Use Standard Drinks/Week Comments Yes 11.7 (1 standard drink = 0.6 oz pure alcohol) Sex and Gender Information Value Date Recorded Sex Assigned at Not on file Legal Sex Male 5:28 PM CDT Gender Identity Not on file Sexual Orientation Not on file Last Filed Vital Signs Vital Sign Reading Time Taken Comments Blood Pressure 134/77 07/15/2023 11:39 AM CDT Pulse 69 07/15/2023 11:39 AM CDT Temperature 36.5 C (97.7 F) 07/15/2023 11:14 AM CDT Respiratory Rate 18 07/15/2023 11:39 AM CDT Oxygen Saturation 95% 07/15/2023 11:39 AM CDT Inhaled Oxygen Concentration - - Weight 72.6 kg (160 lb) 07/15/2023 11:14 AM CDT Height 170.2 cm (5' 7 ) 07/15/2023 11:14 AM CDT Body Mass Index 25.06 07/15/2023 11:14 AM CDT Plan of Treatment Health Maintenance Due Date Last Done Comments Hepatitis C 1968 DTaP, Tdap and Td Vaccines ( 1 - Tdap) 1969 Zoster Vaccines (1 of 2) 2000 RSV Immunization or 60+ Years (1 - Risk 60-74 years 1-dose series) 2010 Pneumococcal Vaccine: 65+ Years (1 of 1 - PCV) 2015 COVID-19 Vaccine (4 - 2023-2 5 season) 2024 07/19/2021, 12/22/2020, 11/24/2020 Influenza Adult (#1) 2024 07/21/2020 Colorectal Cancer Screening Colonoscopy (10 Years) 01/26/2032 01/25/2022, 01/25/2022 Meningococcal B Vaccine Aged Out No l onger eligible based on patient's age to complete this topic Meningococcal Vaccine Aged Out No bert ubaldo eligible based on patient's age to complete this topic RSV Immunizations Under 20 Months Aged Out No longer eligible b ased on patient's age to complete this topic Procedures Procedure Name Priority Date/Time Associated Diagnosis Comments COLONOSCOPY Routine 01/25/2022 9:15 AM CDT from Last 3 Months or Most Recently Relevant to Health Maintenance Insurance [employer] Relationship Specialty Start Date End Date Shabbir White MD [address] [address] PCP - General 08/09/12
--- OUTSIDE RECORDS SUMMARY | 2024-12-15 12:51 | XMS_ITS | Clinical Summary ---
Author Organization [facility] C Address [address] [place] [address] Care Team Providers Care Capsule Filler Name Role Phone Shabbir White MD Primary Care Prov ider Allergies No known active allergies Medications metoprolol [...] now. Assessment & Plan (09/09/2023 1:08 PM SPIRAL TUBE WINDER HELPER): 2/2 RK OU, patient having issues with I/R and having other health issues Would like to return lenses and try again at another time. Will return [place] lenses and RTC for refit in future [...] next exam OS RTC for dispense reF# [id number] Assessment & Plan (05/23/2023 4:00 PM CDT): 2/2 RK OU, possible OHx of amblyopia OD; patient states that OD (even prior to RK) has never seen as well as OS Educated patient on options, corneal GP (would need reverse kate design) vs scleral Patient concerned about dryness and comfort, will go ahead with scleral fit today Today with [place]ester 16.0, excellent comfort OU: OD: 450um central, minimal limbal. Slighlt toe impingement 360, better periphery with flat lens OS: 450um central, minimal limbal. Slight toe impitngement 360, better periphery with flat and better vision with FSE2 Flat periphery / FSE2 / aim for 280um central clearance with adjustments today BCVA 20/30- OD; 20/25-- OS RTC for dispense Ref# [id number] Assessment & Plan (12/11/2022 4:19 PM SPIRAL TUBE WINDER HELPER): Patient is s/p 1 cut RK OU and has to change between several pairs of glasses through the day due to fluctuations in refractive error. Pt has been told about scleral lenses in the past and is interested in trying them. Will consult with Dr. Rivera and schedule and evaluation. Retinal drusen of both eyes 06/05/2022 Assessment & Plan (12/11/2022 4:19 PM SPIRAL TUBE WINDER HELPER): Mild and stable. F/u annually. Assessment & [...] CPM. Assessment & Plan (11/28/2021 1:23 PM SPIRAL TUBE WINDER HELPER): Continue ATs prn. Assessment & Plan (05/30/2021 2:28 PM CDT): PF ATs prn. Assessment & Plan (01/31/2021 1:46 PM CDT): Well controlled with artificial tears. CPM Assessment & Plan (12/13/2020 1:16 PM SPIRAL TUBE WINDER HELPER): Pt feels his symptoms are well controlled [...] 10/26/2019 Assessment & Plan (10/29/2019 7:17 PM SPIRAL TUBE WINDER HELPER): Chest pain is atypical in that it occurs only sometimes in his in various locations of his chest. I am suspicious that it is musculoskeletal, but would recommend a stress test. As his EKG is normal, imaging is not required. Biceps tendinitis of right upper extremity 11/25 Overview (11/25/2018): Added automatically from request for surgery [id number] Incomplete tear of right rotator cuff 11/25/2018 Overview (11/25/2018): Added automatically from request for surgery [id number] Open angle with borderline f indings and [...] ck. Assessment & Plan (12/11/2022 4:18 PM SPIRAL TUBE WINDER HELPER): Mild OAG vs suspect. Started on tx [...] ck. Assessment & Plan (11/28/2021 1:23 PM SPIRAL TUBE WINDER HELPER): Mild OAG vs suspect. IOP well controlled [...] irritation. Assessment & Plan (12/13/2020 1:21 PM SPIRAL TUBE WINDER HELPER): IOP stable on 1 class. Travatan is [...] OU Assessment & Plan (12/11/2022 4:19 PM SPIRAL TUBE WINDER HELPER): S/p RK OU Assessment & Plan (06/05/2022 3:57 PM CDT): S/p 16 incision RK. Stable. Observe. Assessment & Plan (11/28/2021 1:23 PM SPIRAL TUBE WINDER HELPER): S/p 16 incision RK OU Assessment & Plan (05/30/2021 2:28 PM CDT): Hx of RK. Observe. Squamous cell carcinoma of skin of face 11/01/19 16 History of nonmelanoma skin cancer 09/26/2015 Dysesthesia 09/30/2014 Skin cancer 08/26/2014 Vitamin D deficiency disease 11/30/2013 Pain in soft tissues of limb 06/11/2011 Osteopenia 03/25/2011 Encounters Date Type Department Care Team Description 11/12/2024 Orders Only [facility] [address] [place] [address] Eufemia Wan MD from Last 3 Months Surgical History Surgery Date Site/Laterality Comments CATARACT EXTRACTION Cataract Surgery OTHER SURGICAL HISTORY capsulotomy (eye) OTHER SURGICAL HISTORY Capsulotomy OTHER SURGICAL HISTORY 10/20/2014 - 10/19/2015 SVT ablation KERATOPLASTY RADIAL KERATOTOMY 10/20/1988 - 10/19/1989 Bilateral CATARACT EXTRACTION OTHER SURGICAL HISTORY 10/20/2012 - 11/19/2012 loop recorder implant MOHS SURGERY 10/20/2018 - 11/19/2018 neck COLONOSCOPY ~2016 UPPER GASTROINTESTINAL ENDOSCOPY 10/20/2018 - 10/19/2019 OTHER SURGICAL HISTORY ~2016 loop recorder removal SPERMATOCELECTOMY ~2017 Medical History Medical History Date Comments Osteoporosis osteoporosis Borderline glaucoma, 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 - (Added by TW Conv) Open angle with borderline f indings and low glaucoma risk in both eyes Borderline glaucoma, open a ngle with borderline findings, bilateral - (Added by TW Conv) Personal history of diseases of skin or subcutaneous tissue History of actinic keratosis - (Added by TW Conv) Neoplasm of unspecified beha vior of bone, soft tissue, and skin Skin neoplasm - (Added by TW Conv) Personal history of other in fectious and parasitic diseases History of onychomycosis - ( Added by TW Conv) Cataract Arthritis Hypercholesteremia Gastric reflux Atrial fibrillation (CMS/HCC) (HCC) Hypertension Kidney stone BPH (benign prostatic hyperplasia) Squamous cell carcinoma SVT (supraventricular tachycardia) (HCC) s/p ablation 2014 Former smoker quit 1985 GERD (gastroesophageal reflux disease) Family History Medical History Relation Name Comments Osteoporosis Brother Glaucoma Mother Heart attack Mother Myocardial Infa rction; Osteoporosis Mother heavy ETOH use Sister 1 smoker Sister 1 Other Sister 4 Implantable Def ibrillator; Macular degeneration Neg Hx Relation Name Status Comments Brother (Age 70) sepsis Father (Age 92) Mother (Age 81) IA at age 76 Sister 1 (Age 61) 3 hours after shoulder surgery ? cardiac dysarrhtymia Sister 2 Alive Sister 3 Alive Sister 4 Alive Social History Tobacco Use Types Packs/Day Years Used Date Smoking Tobacco: Former Cigarettes 1 16 1 1985 Smokeless Tobacco: Never Alcohol Use Standard [...] on file Legal Sex Male 2:36 AM SPIRAL TUBE WINDER HELPER Gender Identity Not on file Sexual Orientation Not on file Obstetrics History Last Filed Vital Signs Vital Sign Reading Time Taken Comments Blood Pressure 145/90 11/01/2021 9:56 AM SPIRAL TUBE WINDER HELPER Pulse 90 11/01/2021 9:56 AM SPIRAL TUBE WINDER HELPER Temperature 36.8 C (98.2 F) 03/21/2020 10:13 AM CDT Respiratory Rate - - Oxygen Saturation 96% 05/10/2021 10:53 AM CDT Inhaled Oxygen Concentration - - Weight 76 kg (167 lb 9.6 oz) 11/01/2021 9:56 AM SPIRAL TUBE WINDER HELPER Height 171.5 cm (5' 7.5 ) 11/01/2021 9:56 AM SPIRAL TUBE WINDER HELPER Body Mass Index 25.86 11/01/2021 9:56 AM SPIRAL TUBE WINDER HELPER Plan of Treatment Health Maintenance Due Date Last Done Comments Colon Cancer Screening-Colonoscopy 1950 Depression Screening 1950 Fall Risk Assessment 1950 Hepatitis C Screening 1950 DTaP/Tdap/Td Vaccine (1 - Tdap) 1961 Hepatitis B Screening 1968 Pneumococcal vaccine 65+ (1 of 1 - PCV) 2000 Zoster Vaccine (1 of 2) 2000 Abdominal Aortic Aneurysm (AAA) Screen 2015 Well Visit 65+ 2015 Influenza Vaccine (#1) 2024 07/21/2020 Procedures Procedure Name Priority Date/Time Associated Diagnosis Comments SURGICAL PATHOLOGY Routine 11/12/2024 10 :00 AM SPIRAL TUBE WINDER HELPER from Last 3 Months Results * Surgical pathology (11/12/2024 10:00 AM SPIRAL TUBE WINDER HELPER) Skin, shave biopsy 11/12/2024 10:00 AM SPIRAL TUBE WINDER HELPER 11/15/2024 4:10 AM SPIRAL TUBE WINDER HELPER Narrative 11/16/2024 4:45 PM SPIRAL TUBE WINDER HELPER [facility] results best viewed via link to PDF [facility] [address] [place] [address], [address], [place] [address] [email or web address] Note to Patients: This report may contain [...] 11/16/2024 Submitting Physician Information: Eufemia Mcginnis MD [facility] [place], [address] [place] [address], DERMATOPATHOLOGY REPORT RESULTS DIAGNOSIS: A. SKIN, LEFT PENTECOSTAL, SHAVE BIOPSY: ACTINIC KERATOSIS, EXCORIATED B. SKIN, [...] ICD-9 ZSD.1411 ZSD.1474 ZSD.27 Clerical Data A; 78270 B; 64531 C; 15010 D; 50821 The characteristics of special, immunohistochemical, and immunofluorescence stains and in-situ hybridization tests performed by the [facility] were deemed acceptable in ongoing software quality analyst measures and in compliance with regulations drawn from the Clinical Laboratory Improvement Act zz0041 (CLIA '88). Control reactions for all stains performed were deemed adequate and appropriate by a pathologist prior to evaluation of patient tissue. Some diagnoses were rendered with the assistance of laboratory-developed tests utilizing analyte-specific reagents; the performance characteristic of these tests were determined by [facility] and are not cleared or approved by the [place] Food an Drug administration. Laboratory developed test may only be performed in a facility that is certified by the [facility] as a high-complexity laboratory under CLIA '88. These tests are used for clinical purposes and are not investigational. Eufemia Wan MD LAB PATHOLOGY ORDERABLES Final Result from Last 3 Months Insurance [facility] FEDERAL MEDICARE [facility] FEDERAL Care Teams Capsule Filler Relationship Specialty Start Date End Date Shabbir White MD [address] [place] [address] [facility] - General 02/07/17
== END 2024-12-15 11:00 | disposition home or self-care (01) ==
LOC: ANHIMG 11:04
PROVIDERS: PCP Family Medicine Adolescent Medicine; Visit Provider Family Medicine Adolescent Medicine
DX: M85.89 Other specified disorders of bone density and structure, multiple sites (principal)
CPT/HCPCS: 77080

== ENCOUNTER 2025-01-03 11:59 | Outpatient (CLI) | payer BC, SELFPAY ==
[2025-01-03 13:38] LABS: Hematocrit 41.9 % (42.0-52.0); Hemoglobin 13.7 g/dL (14.0-18.0); Mean Corpuscular HGB Conc 32.7 g/dl (32-36); Mean Corpuscular Hemoglobin 31.3 pg (26-34); Mean Corpuscular Volume 95.7 fl (80-100); Mean Platelet Volume 8.6 fl (7.4-10.4); Platelet Count Result 322 k/mm3 (150-375); Red Blood Count 4.38 M/mm3 (4.6-6.20); Red Cell Distribution Width 12.7 % (11.5-14.5); White Blood Count 8.2 K/mm3 (4.5-10.0)
[2025-01-03 13:40] LABS: Add Urine Microscopic? NO; Appearance Urine Clear (Clear); Bilirubin Urine Negative (Negative); Blood Urine Negative (Negative); Color Urine Yellow (Yellow); Glucose Urine UA Negative (Negative); Ketones Urine Negative (Negative); Leukocyte Esterase Ur Negative LEU/UL (Negative); Nitrate Urine Negative (Negative); Protein Urine Negative (Negative); Specific Grav Ur 1.014 (1.001-1.035); Urobilinogen Urine 0.2 mg/dL (<2.0)
[2025-01-03 13:49] LABS: Prothrombin Time 13.5 Seconds (11.1-14.7)
[2025-01-03 13:51] LABS: Partial Thromboplastin Time 25.3 Seconds (22.3-36.8)
[2025-01-03 13:52] LABS: Anion Gap 5 mmol/L (4-12); Blood Urea Nitrogen 18 mg/dL (9-20); Calcium 9.3 mg/dL (8.4-10.2); Carbon Dioxide 31 mmol/L (22-30); Chloride 101 mmol/L (98-107); Estimated Glomerular Filt Rate > 60; Glucose 116 mg/dL (65-110); Potassium 4.6 mmol/L (3.4-5.0); Sodium 137 mmol/L (137-145)
--- OUTSIDE RECORDS SUMMARY | 2025-01-03 14:32 | XMS_ITS | Clinical Summary ---
Author Organization [facility] Address [address], [address] [address] Phone Care Team Providers Care Research Aide Name Role Phone Shabbir White MD Primary Care Provider + Quique Smiley DO Unavailable [phone] Allergies No known active allergies Medications [...] Most Recently Relevant to Health Maintenance Insurance [facility] Care Teams Research Aide Relationship Specialty Start Date End Date Shabbir White MD [address] [place] [address] PCP - General Family Medicine 08/16/16 Quique Smiley DO [address] [place] [address] Gastroenterology 08/16/16
--- OUTSIDE RECORDS SUMMARY | 2025-01-03 14:32 | XMS_ITS | Referral Summary ---
Author Organization [facility] C Address [address] [place] [address] Care Team Providers Care Dental Laboratory Assistant Name Role Phone Shabbir White MD Primary Care Prov ider Encounters Date Type Department Care Team Description 12/15/2024 2:00 PM ASSEMBLER SHOW MOTOR Office Visit [facility] Cardiology at [address] [place] [address] Gera Patricio MD Atypical chest pain (Primary Dx); History of atrial fibrillation; History of PSVT (paroxysmal supraventricular tachycardia); Essential hypertension; Hyperlipidemia, unspecified hyperlipidemia type 11/12/2024 Orders Only [facility] [address] [place] [address] Eufemia Middleton MD from Last 3 Months Allergies No known active allergies Medications metoprolol XL (TOPROL-XL) 25 mg 24 hr tablet take 0.5 tablet by oral route every day 0 0 09/21/20 15 Active finasteride (PROSCAR) 5 mg tablet take 1 tablet (5MG) by oral route every day 0 07/20/20 12 Active clonazePAM (KlonoPIN) 0.5 mg disintegrating tablet Take 1 tablet (0.5 mg total) by mouth 2 (two) times a day as needed 09/23/20 18 Active acetaminophen-code ine (TYLENOL with CODEINE #3) 300-30 mg per tablet every 6 (six) hours as needed 07/14/20 18 Active ibuprofen (ibuprofen) 200 mg tab/cap Take 2 tablet/capsule (400 mg total) by mouth 3 (three) times a day Active famotidine (PEPCID) 20 mg tablet Take 1 tablet (20 mg total) by mouth 2 (two) times a day 0 07/20/20 19 Active latanoprost (XALATAN) 0.005 % ophthalmic solution Administer 1 drop into both eyes nightly 9 mL 3 08/11/20 24 Active docosahexaenoic acid-epa 120-180 mg capsule Take 1,000 mg by mouth 2 (two) times a day 025 Discontin ued(Thera py completed ) Active Problems Problem Noted Date Diagnosed Date Essential hypertension 12/15/2024 History of PSVT (paroxysmal supraventricular tac hycardia) 12/15/2024 History of atrial fibrillation 12/15/2024 Atypical chest pain 12/15/2024 Hyperlipidemia 12/15/2024 Irregular astigmatism of both eyes 12/11/2022 Assessment & Plan (02/03/2024 11:00 AM CDT): S/p RK OU. Pt tried scleral lenses with Dr. Rivera since last visit but d/c'd due to I&R troubles. Content with glasses for now. Assessment & Plan (09/09/2023 1:08 PM ASSEMBLER SHOW MOTOR): 2/2 RK OU, patient having issues with I/R and having other health issues Would like to return lenses and try again at another time. Will return [place] lenses and RTC for refit in future Continue care with Dr. Teresita SCALES Assessment & Plan (07/04/2023 3:33 PM CDT): [...] next exam OS RTC for dispense reF# [id number] Assessment & Plan (05/23/2023 4:00 PM CDT): 2/2 RK OU, possible OHx of amblyopia OD; patient states that OD (even prior to RK) has never seen as well as OS Educated patient on options, corneal GP (would need reverse kate design) vs scleral Patient concerned about dryness and comfort, will go ahead with scleral fit today Today with [place] 16.0, excellent comfort OU: OD: 450um central, minimal limbal. Slighlt toe impingement 360, better periphery with flat lens OS: 450um central, minimal limbal. Slight toe impitngement 360, better periphery with flat and better vision with FSE2 Flat periphery / FSE2 / aim for 280um central clearance with adjustments today BCVA 20/30- OD; 20/25-- OS RTC for dispense Ref# [id number] Assessment & Plan (12/11/2022 4:19 PM ASSEMBLER SHOW MOTOR): Patient is s/p 1 cut RK OU and has to change between several pairs of glasses through the day due to fluctuations in refractive error. Pt has been told about scleral lenses in the past and is interested in trying them. Will consult with Dr. Rivera and schedule and evaluation. Retinal drusen of both eyes 06/05/2022 Assessment & Plan (12/11/2022 4:19 PM ASSEMBLER SHOW MOTOR): Mild and stable. F/u annually. Assessment & [...] CPM. Assessment & Plan (11/28/2021 1:23 PM ASSEMBLER SHOW MOTOR): Continue ATs prn. Assessment & Plan (05/30/2021 2:28 PM CDT): PF ATs prn. Assessment & Plan (01/31/2021 1:46 PM CDT): Well controlled with artificial tears. CPM Assessment & Plan (12/13/2020 1:16 PM ASSEMBLER SHOW MOTOR): Pt feels his symptoms are well controlled [...] 10/26/2019 Assessment & Plan (10/29/2019 7:17 PM ASSEMBLER SHOW MOTOR): Chest pain is atypical in that it occurs only sometimes in his in various locations of his chest. I am suspicious that it is musculoskeletal, but would recommend a stress test. As his EKG is normal, imaging is not required. Biceps tendinitis of right upper extremity 11/25 Overview (11/25/2018): Added automatically from request for surgery [id number] Incomplete tear of right rotator cuff 11/25/2018 Overview (11/25/2018): Added automatically from request for surgery [id number] Open angle with borderline f indings and [...] ck. Assessment & Plan (12/11/2022 4:18 PM ASSEMBLER SHOW MOTOR): Mild OAG vs suspect. Started on tx [...] ck. Assessment & Plan (11/28/2021 1:23 PM ASSEMBLER SHOW MOTOR): Mild OAG vs suspect. IOP well controlled [...] irritation. Assessment & Plan (12/13/2020 1:21 PM ASSEMBLER SHOW MOTOR): IOP stable on 1 class. Travatan is [...] OU Assessment & Plan (12/11/2022 4:19 PM ASSEMBLER SHOW MOTOR): S/p RK OU Assessment & Plan (06/05/2022 3:57 PM CDT): S/p 16 incision RK. Stable. Observe. Assessment & Plan (11/28/2021 1:23 PM ASSEMBLER SHOW MOTOR): S/p 16 incision RK OU Assessment & [...] on file Legal Sex Male 2:36 AM ASSEMBLER SHOW MOTOR Gender Identity Not on file Sexual Orientation Not on file Last Filed Vital Signs Vital Sign Reading Time Taken Comments Blood Pressure 130/72 12/15/2024 4:10 PM ASSEMBLER SHOW MOTOR Pulse 93 12/15/2024 2:32 PM ASSEMBLER SHOW MOTOR Temperature 36.8 C (98.2 F) 03/21/2020 10:13 AM CDT Respiratory Rate - - Oxygen Saturation 95% 12/15/2024 2:32 PM ASSEMBLER SHOW MOTOR Inhaled Oxygen Concentration - - Weight 78.5 kg (173 lb) 12/15/2024 2:32 PM ASSEMBLER SHOW MOTOR Height 170.2 cm (5' 7 ) 12/15/2024 2:32 PM ASSEMBLER SHOW MOTOR Body Mass Index 27.1 12/15/2024 2:32 PM ASSEMBLER SHOW MOTOR Plan of Treatment Not on file Procedures Procedure Name Priority Date/Time Associated Diagnosis Comments POCT LIPID PANEL Routine 12/15/2024 2:28 PM ASSEMBLER SHOW MOTOR Essential hypertension ELECTROCARDIOGRAM REPORT Routine 12/15/2024 8:17 AM ASSEMBLER SHOW MOTOR Atypical chest pain History of PSVT (paroxysmal supraventricular tachycardia) SURGICAL PATHOLOGY Routine 11/12/2024 10:00 AM ASSEMBLER SHOW MOTOR from Last 3 Months Results * POCT lipid panel (12/15/2024 2:28 PM ASSEMBLER SHOW MOTOR) Cholesterol, POC 231 mg/dL HDL, POC 45 mg/dL Triglycerides, POC 108 mg/dL LDL Cholesterol POC 165 mg/dL Chol/HDL Ratio, POC 5.1 Non-HDL Cholesterol, POC 186 mg/dL Cholesterol Total, POC 231 mg/dL Capillary blood 12/15/2024 2 :28 PM ASSEMBLER SHOW MOTOR Gera Patricio MD POINT OF CARE TEST ORDERA BLES Final Result * Electrocardiogram Report (12/15/2024 8:17 AM ASSEMBLER SHOW MOTOR) us Gera Patricio MD ECG ORDERABLES Final Res ult * Surgical pathology (11/12/2024 10:00 AM ASSEMBLER SHOW MOTOR) Skin, shave biopsy 11/12/2024 10:00 AM ASSEMBLER SHOW MOTOR 11/15/2024 4:10 AM ASSEMBLER SHOW MOTOR Narrative 11/16/2024 4:45 PM ASSEMBLER SHOW MOTOR EPIC results best viewed via link to PDF [facility] [address] [place] [address], [address], [place] [address] [email or web address] Note to Patients: This report may contain [...] 11/16/2024 Submitting Physician Information: Eufemia Mcginnis MD [facility] [place] [address], DERMATOPATHOLOGY REPORT RESULTS DIAGNOSIS: A. SKIN, LEFT TAOIST, SHAVE BIOPSY: ACTINIC KERATOSIS, EXCORIATED B. SKIN, [...] ICD-9 ZSD.1411 ZSD.1474 ZSD.27 Clerical Data A; 63629 B; 16192 C; 00707 D; 31089 The characteristics of special, immunohistochemical, and immunofluorescence stains and in-situ hybridization tests performed by the [facility] were deemed acceptable in ongoing it quality analyst measures and in compliance with regulations drawn from the Clinical Laboratory Improvement Act [id number] (CLIA '88). Control reactions for all stains performed were deemed adequate and appropriate by a pathologist prior to evaluation of patient tissue. Some diagnoses were rendered with the assistance of laboratory-developed tests utilizing analyte-specific reagents; the performance characteristic of these tests were determined by [facility] and are not cleared or approved by the [place] Food an Drug administration. Laboratory developed test may only be performed in a facility that is certified by the [facility] as a high-complexity laboratory under CLIA '88. These tests are used for clinical purposes and are not investigational. Eufemia Wan MD LAB PATHOLOGY ORDERABLES Final Result from Last 3 Months Insurance [facility] FEDERAL MEDICARE [facility] Care Teams Dental Laboratory Assistant Relationship Specialty Start Date End Date Shabbir White MD [address] [place] [address] PCP - General 02/07/17
--- OUTSIDE RECORDS SUMMARY | 2025-01-03 14:32 | XMS_ITS | Clinical Summary ---
Author Organization [facility] Address [address] [place] [address] Care Team Providers Care Charge Nurse Name Role Phone Shabbir White MD Primary Care Provider [phone] Allergies No known active allergies Medications famotidine [...] to Health Maintenance Insurance [employer] Care Teams Charge Nurse Relationship Specialty Start Date End Date Shabbir White MD [address] [address] PCP - General 08/09/12
--- OUTSIDE RECORDS SUMMARY | 2025-01-03 14:32 | XMS_ITS | Encounter Summary ---
Author Organization [facility] Address [address] [place] [address] Care Team Providers Care Operations Supervisor 2Nd Shift Name Role Phone Shabbir White MD Primary Care Prov ider Encounter Details Date Type Department Care Team (Late st Contact Info) Description 11/30/2021 Telephone [facility] Radiology [address] [facility] [address] [place] [id number] Kenna Boudreaux, RT Social History Tobacco [...] on file Legal Sex Male 2:36 AM INSPECTOR GOLF BALL Gender Identity Not on file Sexual Orientation Not on file documented as of this encounter Plan of Treatment Not on file documented as of this encounter Visit Diagnoses Not on filedocumented in this encounter Care Teams Operations Supervisor 2Nd Shift Relationship Specialty Start Date End Date Shabbir White MD [address] [place] [address] PCP - General 02/07/17 documented as of this encounter
--- OUTSIDE RECORDS SUMMARY | 2025-01-03 14:32 | XMS_ITS | Clinical Summary ---
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 Assessment & Plan (09/09/2023 1:08 PM CARDIAC MONITOR): 2/2 RK OU, patient having issues with I/R and having other health issues Would like to return lenses and try again at another time. Will return [place] lenses and RTC for refit in future [...] next exam OS RTC for dispense reF# [id number] Assessment & Plan (05/23/2023 4:00 PM CDT): 2/2 RK OU, possible OHx of amblyopia OD; patient states that OD (even prior to RK) has never seen as well as OS Educated patient on options, corneal GP (would need reverse kate design) vs scleral Patient concerned about dryness and comfort, will go ahead with scleral fit today Today with [place] 16.0, excellent comfort OU: OD: 450um central, minimal limbal. Slighlt toe impingement 360, better periphery with flat lens OS: 450um central, minimal limbal. Slight toe impitngement 360, better periphery with flat and better vision with FSE2 Flat periphery / FSE2 / aim for 280um central clearance with adjustments today BCVA 20/30- OD; 20/25-- OS RTC for dispense Ref# [id number] Assessment & Plan (12/11/2022 4:19 PM CARDIAC MONITOR): Patient is s/p 1 cut RK OU and has to change between several pairs of glasses through the day due to fluctuations in refractive error. Pt has been told about scleral lenses in the past and is interested in trying them. Will consult with Dr. Rivera and schedule and evaluation. Retinal drusen of both eyes 06/05/2022 Assessment & Plan (12/11/2022 4:19 PM CARDIAC MONITOR): Mild and stable. F/u annually. Assessment & [...] CPM. Assessment & Plan (11/28/2021 1:23 PM CARDIAC MONITOR): Continue ATs prn. Assessment & Plan (05/30/2021 2:28 PM CDT): PF ATs prn. Assessment & Plan (01/31/2021 1:46 PM CDT): Well controlled with artificial tears. CPM Assessment & Plan (12/13/2020 1:16 PM CARDIAC MONITOR): Pt feels his symptoms are well controlled [...] 10/26/2019 Assessment & Plan (10/29/2019 7:17 PM CARDIAC MONITOR): Chest pain is atypical in that it occurs only sometimes in his in various locations of his chest. I am suspicious that it is musculoskeletal, but would recommend a stress test. As his EKG is normal, imaging is not required. Biceps tendinitis of right upper extremity 11/25 Overview (11/25/2018): Added automatically from request for surgery [id number] Incomplete tear of right rotator cuff 11/25/2018 Overview (11/25/2018): Added automatically from request for surgery [id number] Open angle with borderline f indings and [...] ck. Assessment & Plan (12/11/2022 4:18 PM CARDIAC MONITOR): Mild OAG vs suspect. Started on tx [...] ck. Assessment & Plan (11/28/2021 1:23 PM CARDIAC MONITOR): Mild OAG vs suspect. IOP well controlled [...] irritation. Assessment & Plan (12/13/2020 1:21 PM CARDIAC MONITOR): IOP stable on 1 class. Travatan is [...] OU Assessment & Plan (12/11/2022 4:19 PM CARDIAC MONITOR): S/p RK OU Assessment & Plan (06/05/2022 3:57 PM CDT): S/p 16 incision RK. Stable. Observe. Assessment & Plan (11/28/2021 1:23 PM CARDIAC MONITOR): S/p 16 incision RK OU Assessment & Plan (05/30/2021 2:28 PM CDT): Hx of RK. Observe. Squamous cell carcinoma of skin of face 11/01/19 16 History of nonmelanoma skin cancer 09/26/2015 Dysesthesia 09/30/2014 Skin cancer 08/26/2014 Vitamin D deficiency disease 11/30/2013 Pain in soft tissues of limb 06/11/2011 Osteopenia 03/25/2011 Encounters Date Type Department Care Team Description 12/15/2024 2:00 PM CARDIAC MONITOR Office Visit [facility] Cardiology at [address] [place] [address] Gera Patricio MD Atypical chest pain (Primary Dx); History of atrial fibrillation; History of PSVT (paroxysmal supraventricular tachycardia); Essential hypertension; Hyperlipidemia, unspecified hyperlipidemia type 11/12/2024 Orders Only [facility] [address] [place] [address] Qasim Middletona Paulina, MD from Last 3 Months Surgical History Surgery Date Site/Laterality Comments CATARACT EXTRACTION Cataract Surgery OTHER SURGICAL HISTORY capsulotomy (eye) OTHER SURGICAL HISTORY Capsulotomy OTHER SURGICAL HISTORY 10/20/2014 - 10/19/2015 SVT ablation KERATOPLASTY RADIAL KERATOTOMY 10/20/1988 - 10/19/1989 Bilateral CATARACT EXTRACTION OTHER SURGICAL HISTORY 10/20/2012 - 11/19/2012 loop recorder implant MOHS SURGERY 10/20/2018 - 11/19/2018 neck COLONOSCOPY ~2015 UPPER GASTROINTESTINAL ENDOSCOPY 10/20/2018 - 10/19/2019 OTHER [...] Cataract Arthritis Hypercholesteremia Gastric reflux Atrial fibrillation (HCC) Hypertension Kidney stone BPH (benign prostatic hyperplasia) Squamous cell carcinoma SVT (supraventricular tachycardia) s/p ablation 2014 Former smoker quit 1985 GERD (gastroesophageal reflux disease) Family History Medical History Relation Name Comments Osteoporosis Brother Glaucoma Mother Heart attack Mother Myocardial Infa rction; Osteoporosis Mother heavy ETOH use Sister 1 smoker Sister 1 Other Sister 4 Implantable Def ibrillator; Macular degeneration Neg Hx Relation Name Status Comments Brother (Age 70) sepsis Father (Age 92) Mother (Age 81) [place] at age 76 Sister 1 (Age 61) 3 hours after shoulder surgery ? cardiac dysarrhtymia Sister 2 Alive Sister 3 Alive Sister 4 Alive Social History Tobacco Use Types Packs/Day Years Used Date Smoking Tobacco: Former Cigarettes 1 16 1 0 - 1985 Smokeless Tobacco: Never Alcohol Use [...] on file Legal Sex Male 2:36 AM CARDIAC MONITOR Gender Identity Not on file Sexual Orientation Not on file Obstetrics History Last Filed Vital Signs Vital Sign Reading Time Taken Comments Blood Pressure 130/72 12/15/2024 4:10 PM CARDIAC MONITOR Pulse 93 12/15/2024 2:32 PM CARDIAC MONITOR Temperature 36.8 C (98.2 F) 03/21/2020 10:13 AM CDT Respiratory Rate - - Oxygen Saturation 95% 12/15/2024 2:32 PM CARDIAC MONITOR Inhaled Oxygen Concentration - - Weight 78.5 kg (173 lb) 12/15/2024 2:32 PM CARDIAC MONITOR Height 170.2 cm (5' 7 ) 12/15/2024 2:32 PM CARDIAC MONITOR Body Mass Index 27.1 12/15/2024 2:32 PM CARDIAC MONITOR Plan of Treatment Health Maintenance Due Date [...] POCT LIPID PANEL Routine 12/15/2024 2:28 PM CARDIAC MONITOR Essential hypertension ELECTROCARDIOGRAM REPORT Routine 12/15/2024 8:17 AM CARDIAC MONITOR Atypical chest pain History of PSVT (paroxysmal supraventricular tachycardia) SURGICAL PATHOLOGY Routine 11/12/2024 10:00 AM CARDIAC MONITOR from Last 3 Months Results * POCT lipid panel (12/15/2024 2:28 PM CARDIAC MONITOR) Cholesterol, POC 231 mg/dL HDL, POC 45 mg/dL Triglycerides, POC 108 mg/dL LDL Cholesterol POC 165 mg/dL Chol/HDL Ratio, POC 5.1 Non-HDL Cholesterol, POC 186 mg/dL Cholesterol Total, POC 231 mg/dL Capillary blood 12/15/2024 2 :28 PM CARDIAC MONITOR Gera Patricio MD POINT OF CARE TEST ORDERA BLES Final Result * Electrocardiogram Report (12/15/2024 8:17 AM CARDIAC MONITOR) Gera Patricio MD ECG ORDERABLES Final Res ult * Surgical pathology (11/12/2024 10:00 AM CARDIAC MONITOR) Skin, shave biopsy 11/12/2024 10:00 AM CARDIAC MONITOR 11/15/2024 4:10 AM CARDIAC MONITOR Narrative 11/16/2024 4:45 PM CARDIAC MONITOR EPIC results best viewed via link to PDF [facility] [address] [place] [address], [address], [place] [address] [email or web address] Note to Patients: This report may contain [...] Submitting Physician Information: Eufemia Mcginnis MD [facility], [address] [place] [address], DERMATOPATHOLOGY REPORT RESULTS DIAGNOSIS: A. SKIN, LEFT MUSLIM, SHAVE BIOPSY: ACTINIC KERATOSIS, EXCORIATED B. SKIN, [...] ICD-9 ZSD.1411 ZSD.1474 ZSD.27 Clerical Data A; 20707 B; 67348 C; 05478 D; 64701 The characteristics of special, immunohistochemical, and immunofluorescence stains and in-situ hybridization tests performed by the [facility] were deemed acceptable in ongoing aerospace quality engineer measures and in compliance with regulations drawn from the Clinical Laboratory Improvement Act by3975 (CLIA '88). Control reactions for all stains performed were deemed adequate and appropriate by a pathologist prior to evaluation of patient tissue. Some diagnoses were rendered with the assistance of laboratory-developed tests utilizing analyte-specific reagents; the performance characteristic of these tests were determined by [facility] and are not cleared or approved by the [place] Food an Drug administration. Laboratory developed test may only be performed in a facility that is certified by the [facility] as a high-complexity laboratory under CLIA '88. These tests are used for clinical purposes and are not investigational. 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
== END 2025-01-03 12:00 | disposition home or self-care (01) ==
PROVIDERS: PCP Family Medicine Adolescent Medicine; Visit Provider Neurological Surgery
DX: M47.816 Spondylosis without myelopathy or radiculopathy, lumbar region (principal); M48.061 Spinal stenosis, lumbar region without neurogenic claudication; M43.17 Spondylolisthesis, lumbosacral region
CPT/HCPCS: 36415; 80048; 81003; 85027; 85610; 85730

== ENCOUNTER 2025-02-12 12:18 | Emergency (ER) | payer BC, SELFPAY ==
[2025-02-12] VITALS (11 sets, daily range): BP systolic 125–147; BP diastolic 71–84; PULSE 76–97; RESP 16–18; TEMP 36.1; O2SAT 96–99
--- NOTE | ~2025-02-12 | CT_ITS ---
EXAMINATION: CTA BRAIN/CAROTID DATE: 02/12/2025 13:47 INDICATION: Left temporal pain. Recent surgery cannulation. TECHNIQUE: Computed tomographic angiography (CTA) of the head and neck was performed with 100 mL Omni paque-350 intravenous contrast. Multiplanar reconstructions and maximum intensity projection 3D-recon structions of the carotid arteries and of the intracranial arteries were created by the technologist on a separate workstation. Precontrast CT of the head was also obtained. Automated exposure control and iterative reconstruction technique were employed.The dose-length product was 1690.24 mGy-cm. COMPARISON: None. FINDINGS: Carotid arteries: Small amount of nonhemodynamically significant atherosclerotic plaque along the normal caliber aortic arch and great vessels arising from the arch. There is severe stenosis at the origins of both the di minutive right and dominant left vertebral arteries. There is 20% stenosis of the right carotid bulb relative to normal distal artery lumen diameter (NASCET criteria). There is 0% stenosis of the left c arotid bulb relative to normal distal artery lumen diameter. Small posterior layering right and tiny left pleural effusions the visualized upper lungs. Prior median sternotomy. Cervical soft tissues are unremarkable. Moderate lower cervical spondylosis. Head: No acute intracranial hemorrhage, acute infarction or abnormal extra axial fluid collection. There is moderate scattered white matter hypoattenuation consistent with chronic small vessel ischemic diseas e. Ventricles are normal and symmetric. No mass/mass effect. No abnormally enhancing brain lesions o n the postcontrast imaging. Changes of bilateral intraocular lens replacement. The orbits, paranasal sinuses and mastoid air cells are normal. Intracranial arteries The left vertebral arteries dominant. There is atherosclerotic plaque along the bilateral carotid sip hons with no hemodynamically significant stenosis. There is no hemodynamically significant stenosis i n the vertebral, basilar and internal carotid arteries. The left A1 segment is patent and supplies flako th the left anterior cerebral as well as the right anterior cerebral arteries bilaterally via a paten t anterior communicating artery. There is a mild partially 50% stenosis at the patent right P1 segmen t. The diminutive left P1 segment does not appear to supply the left posterior cerebral artery which appears supplied exclusively via a patent left posterior communicating artery. Cerebral arterial arbo rization appears symmetric. IMPRESSION: 1. 20% stenosis of the right carotid bulb relative to normal distal artery lumen diameter (NASCET cri teria). 2. 0% stenosis of the left carotid bulb relative to normal distal artery lumen diameter. 3. No acute intracranial process. Moderate scattered white matter hypoattenuation consistent with chr onic small vessel ischemic disease. 4. 50% stenosis at the right P1 segment and scattered plaque with no significant stenosis at the bila teral carotid siphons. 5. Severe stenosis at the origins of the diminutive right and dominant left vertebral arteries. 6. Small right and tiny left posterior layering pleural effusions. Reviewed, dictated and finalized at location A. IMPRESSION: 1. 20% stenosis of the right carotid bulb relative to normal distal artery lume n diameter (NASCET criteria). 2. 0% stenosis of the left carotid bulb relative to normal distal artery lumen diameter. 3. No acute intracranial process. Moderate scattered white matter hypoattenuati on consistent with chronic small vessel ischemic disease. 4. 50% stenosis at the right P1 segment and scattered plaque with no significan t stenosis at the bilateral carotid siphons. 5. Severe stenosis at the origins of the diminutive right and dominant left zora tebral arteries. 6. Small right and tiny left posterior layering pleural effusions.
--- OUTSIDE RECORDS SUMMARY | 2025-02-12 12:20 | XMS_ITS | Clinical Summary ---
Author Organization [facility] C Address [address] [place] [address] Care Team Providers Care Specialty Therapist Name Role Phone Shabbir White MD Primary Care Prov ider Kasia Maldonado MD Unavailable [phone] Gera Patricio MD Unavailable [phone] Miscellaneous, Not In File Unavailable Unava ilable Allergies No known active allergies Medications finasteride (PROSCAR) 5 mg tablet take 1 tablet (5MG) by oral route every day 0 07/20/20 12 Active clonazePAM (KlonoPIN) 0.5 mg disintegrating tablet Take 1 tablet (0.5 mg total) by mouth nightly as needed for anxiety 09/23/20 18 Active famotidine (PEPCID) 20 mg tablet Take 1 tablet (20 mg total) by mouth 2 (two) times a day 0 07/20/20 19 Active latanoprost (XALATAN) 0.005 % ophthalmic solution Administer 1 drop into both eyes nightly 9 mL 3 08/11/20 24 Active aspirin 81 mg enteric coated tabletIndications: prevention of thrombosis Take 1 tablet (81 mg total) by mouth daily 30 tablet 11 01/13/20 25 026 Active rosuvastatin (CRESTOR) 20 mg tabletIndications: Atypical chest pain Take 1 tablet (20 mg total) by mouth daily 30 tablet 11 01/13/20 026 Active Additional Information Patient taking differently:20 mg oralNightly, Informant: Self, Reported on 01/26/2025 carboxymethylce-gl ycern-poly80 0.5-1-0.5 % drops Administer 2 drops into affected eye(s) 3 (three) times a day 1-2 drops in each eye TID Active acetaminophen 500 mg capsuleIndications :Fever,Pain Take 2 capsules (1,000 mg total) by mouth every 6 (six) hours as needed for pain 02/01/20 25 Active amiodarone (PACERONE) 200 mg tabletIndications: Prevention of A. Fib Post Cardio-Thoracic Surgery Take 2 tablets (400 mg total) by mouth 3 (three) times a day for 7 days, THEN 2 tablets (400 mg total) 2 (two) times a day for 7 days, THEN 2 tablets (400 mg total) daily for 14 days. 98 tablet 02/01/20 25 025 Active clopidogreL (PLAVIX) 75 mg tabletIndications: Acute Coronary Syndrome Take 1 tablet (75 mg total) by mouth daily 30 tablet 1 02/02/20 25 025 Active metoprolol tartrate (LOPRESSOR) 25 mg immediate release tablet Take 0.5 tablets (12.5 mg total) by mouth 2 (two) times a day 30 tablet 1 02/01/20 25 025 Active Additional Information Patient not taking.Reported on 02/10/[address] (PROTONIX) 40 mg EC tabletIndications: Stress Ulcer Prophylaxis Take 1 tablet (40 mg total) by mouth daily 30 tablet 1 02/04/20 25 026 Active oxyCODONE (ROXICODONE) 5 mg immediate release tabletIndications: Pain Take 1 tablet (5 mg total) by mouth every 4 (four) hours as needed for pain 14 tablet 02/05/20 25 Active furosemide (LASIX) 40 mg tablet Take 1 tablet (40 mg total) by mouth daily 30 tablet 02/11/20 25 025 Active potassium chloride ER (KLOR-CON) 20 mEq CR tablet Take 1 tablet (20 mEq total) by mouth daily 30 tablet 02/11/20 25 025 Active oxyCODONE (ROXICODONE) 5 mg immediate release tabletIndications: Pain Take 1 tablet (5 mg total) by mouth every 4 (four) hours as needed for pain 10 tablet 02/11/20 25 Active naloxone (NARCAN) 4 mg/actuation spray,non-aerosol Administer 1 spray into affected nostril(s) as needed for opioid reversal or respiratory depression Call 911. Administer a single spray in one nostril. Repeat every 3 minutes as needed if no or minimal response. 1 each 1 02/11/20 25 Active metoprolol XL (TOPROL-XL) 25 mg 24 hr tablet take 0.5 tablet by oral route every day 0 0 09/21/20 15 Discontin ued(Stop Taking at Discharge ) acetaminophen-code ine (TYLENOL with CODEINE #3) 300-30 mg per tablet Take 1 tablet by mouth every 6 (six) hours as needed 07/14/20 18 Discontin ued(Stop Taking at Discharge ) ibuprofen (ibuprofen) 200 mg tab/cap Take 2 tablet/capsule (400 mg total) by mouth 2 (two) times a day as needed Discontin ued(Stop Taking at Discharge ) furosemide (LASIX) 40 mg tablet Take 1 tablet (40 mg total) by mouth daily for 7 days 7 tablet 02/02/20 25 Discontin ued(Alter brianne therapy) potassium chloride ER (KLOR-CON) 20 mEq CR tablet Take 1 tablet (20 mEq total) by mouth daily for 7 days 7 tablet 02/01/20 25 025 Discontin ued(Alter brianne therapy) oxyCODONE (ROXICODONE) 5 mg immediate release tabletIndications: Pain Take 1 tablet (5 mg total) by mouth every 4 (four) hours as needed for pain 10 tablet 02/01/20 25 025 Discontin ued(Dupli amina order) furosemide (LASIX) 40 mg tablet Take 1 tablet (40 mg total) by mouth 2 (two) times a day 60 tablet 02/04/20 25 025 Discontin ued(Alter brianne therapy) potassium chloride ER (KLOR-CON) 20 mEq CR tablet Take 1 tablet (20 mEq total) by mouth 2 (two) times a day 60 tablet 02/04/20 25 025 Discontin ued(Alter brianne therapy) Active Problems Problem Noted Date Diagnosed Date Coronary artery disease (CAD) excluded Coronary artery disease of n ative heart with stable angina pectoris 01/20/2025 Essential hypertension 12/15/2024 History of PSVT (paroxysmal [...] now. Assessment & Plan (09/09/2023 1:08 PM PRODUCE ASSISTANT): 2/2 RK OU, patient having issues with I/R and having other health issues Would like to return lenses and try again at another time. Will return Onamia lenses and RTC for refit in future [...] next exam OS RTC for dispense reF# [id number] Assessment & Plan (05/23/2023 4:00 PM CDT): 2/2 RK OU, possible OHx of amblyopia OD; patient states that OD (even prior to RK) has never seen as well as OS Educated patient on options, corneal GP (would need reverse kate design) vs scleral Patient concerned about dryness and comfort, will go ahead with scleral fit today Today with Onamia 16.0, excellent comfort OU: OD: 450um central, minimal limbal. Slighlt toe impingement 360, better periphery with flat lens OS: 450um central, minimal limbal. Slight toe impitngement 360, better periphery with flat and better vision with FSE2 Flat periphery / FSE2 / aim for 280um central clearance with adjustments today BCVA 20/30- OD; 20/25-- OS RTC for dispense Ref# [id number] Assessment & Plan (12/11/2022 4:19 PM PRODUCE ASSISTANT): Patient is s/p 1 cut RK OU and has to change between several pairs of glasses through the day due to fluctuations in refractive error. Pt has been told about scleral lenses in the past and is interested in trying them. Will consult with Dr. Rivera and schedule and evaluation. Retinal drusen of both eyes 06/05/2022 Assessment & Plan (12/11/2022 4:19 PM PRODUCE ASSISTANT): Mild and stable. F/u annually. Assessment & [...] CPM. Assessment & Plan (11/28/2021 1:23 PM PRODUCE ASSISTANT): Continue ATs prn. Assessment & Plan (05/30/2021 2:28 PM CDT): PF ATs prn. Assessment & Plan (01/31/2021 1:46 PM CDT): Well controlled with artificial tears. CPM Assessment & Plan (12/13/2020 1:16 PM PRODUCE ASSISTANT): Pt feels his symptoms are well controlled [...] 10/26/2019 Assessment & Plan (10/29/2019 7:17 PM PRODUCE ASSISTANT): Chest pain is atypical in that it occurs only sometimes in his in various locations of his chest. I am suspicious that it is musculoskeletal, but would recommend a stress test. As his EKG is normal, imaging is not required. Biceps tendinitis of right upper extremity 11/25 Overview (11/25/2018): Added automatically from request for surgery [id number] Incomplete tear of right rotator cuff 11/25/2018 Overview (11/25/2018): Added automatically from request for surgery [id number] Open angle with borderline f indings and [...] ck. Assessment & Plan (12/11/2022 4:18 PM PRODUCE ASSISTANT): Mild OAG vs suspect. Started on tx [...] ck. Assessment & Plan (11/28/2021 1:23 PM PRODUCE ASSISTANT): Mild OAG vs suspect. IOP well controlled [...] irritation. Assessment & Plan (12/13/2020 1:21 PM PRODUCE ASSISTANT): IOP stable on 1 class. Travatan is [...] OU Assessment & Plan (12/11/2022 4:19 PM PRODUCE ASSISTANT): S/p RK OU Assessment & Plan (06/05/2022 3:57 PM CDT): S/p 16 incision RK. Stable. Observe. Assessment & Plan (11/28/2021 1:23 PM PRODUCE ASSISTANT): S/p 16 incision RK OU Assessment & Plan (05/30/2021 2:28 PM CDT): Hx of RK. Observe. Squamous cell carcinoma of skin of face 11/01/19 16 History of nonmelanoma skin cancer 09/26/2015 Dysesthesia 09/30/2014 Skin cancer 08/26/2014 Vitamin D deficiency disease 11/30/2013 Pain in soft tissues of limb 06/11/2011 Osteopenia 03/25/2011 Encounters Date Type Department Care Team Description 02/10/2025 10:05 AM CDT Lab [address] [address] Coronary artery disease involving upper [place] coronary artery of upper [place] heart without angina pectoris 02/10/2025 9:30 AM CDT Office Visit [facility] Surgery [id number] [place] [address] [address] [place] [address] Lali, Jordan Ning, [employer] Coronary artery disease of upper [place] heart with stable angina pectoris, unspecified vessel or lesion type (Primary Dx) 02/10/2025 Orders Only [facility] Surgery [address] [place] [address] Road [address] [place] [address] Jordan Escalera NP 02/07/2025 Orders Only [facility] Surgery [address] [place] [address] Road [address] [place] [address] Jordan Escalera NP Coronary artery disease involving upper [place] coronary artery of upper [place] heart without angina pectoris (Primary Dx) 02/07/2025 Documentation [facility] Surgery [address] [place] [address] Road [address] [place] [address] Jordan Escalera NP 02/04/2025 1:51 PM CDT - 02/04/2025 11:59 PM CDT Hospital Encounter [facility] Diagnostic Imaging [address] [place] [address] Coronary artery disease involving upper [place] coronary artery of upper [place] heart without angina pectoris Discharge Disposition: Discharge to home or self care 02/04/2025 10:25 AM CDT Lab [facility] Lab [address] [place] [address] 02/04/2025 10:10 AM CDT Lab [facility] Lab [address] [place] [address] Burning with urination 02/04/2025 Orders Only [facility] Surgery [address] [place] [address] [address] [place] [address] Jordan Escalera NP 02/04/2025 Orders Only [facility] Surgery [address] [place] [address] [address] [place] [address] Jordan Escalera NP Coronary artery disease involving upper [place] coronary artery of upper [place] heart without angina pectoris (Primary Dx) 02/04/2025 Orders Only [facility] Surgery [address] [place] [address] [address] [place] [address] Jordan Escalera NP Burning with urination (Primary Dx) 02/03/2025 Documentation [facility] Surgery [address] [place] [address] [address] [place] [address] Rabia Becrera NP 02/02/2025 [facility] Post Discharge Follow up phone call [address] [address] Evangelina Khan 01/31/2025 Telephone [facility] Cardiology [address] [facility] [address], [place] [phone] Alaina Henderson NP 01/26/2025 9:35 AM CDT - 01/26/2025 2:35 PM CDT Surgery [facility] Operating Room [address] [place] [address] Kasia Maldonado MD CABG X 4 with LEFT AND RIGHT INTERNAL MAMMARY ARTERY HARVEST AND RIGHT LEG ENDOVEIN HARVEST 01/26/2025 8:55 AM CDT Anesthesia Event [facility] Operating Room [address] [place] [address] José Manuel Torres MD Eldin, Ali S., MD 01/26/2025 7:23 AM CDT - 01/31/2025 4:56 PM CDT Hospital Encounter [address] [address] Kasia Maldonado MD Coronary artery disease of bypass graft of upper [place]oni heart with stable angina pectoris (Primary Dx); Coronary artery disease of upper [place] artery of upper [place] heart with stable angina pectoris; Coronary artery disease of upper [place] heart with stable angina pectoris, unspecified vessel or lesion type Discharge Disposition: Discharge to home, home health skilled care 01/24/2025 11:16 AM CDT - 01/24/2025 11:59 PM CDT Hospital Encounter [facility] Diagnostic Imaging [address] [place] [address] Discharge Disposition: Discharge to home or self care 01/24/2025 10:45 AM CDT Pre-Admission Testing [facility] Pre Anesthesia Testing [address] [place] [address] Coronary artery disease of upper [place] heart with stable angina pectoris, unspecified vessel or lesion type 01/24/2025 Documentation [facility] Surgery [address] [place] [address] [address] [place] [phone] Jordan Escalera NP 01/20/2025 10:00 AM CDT - 01/20/2025 11:30 AM CDT Surgery [facility] Cardiac Catheterization Lab [address] [place] [address] Anabell Saini MD LEFT HEART CATHETERIZATION WITH CORONARY ANGIOGRAPHY AND WITH OR WITHOUT LEFT VENTRICULOGRAM [id number] 01/20/2025 7:35 AM CDT - 01/20/2025 2:21 PM CDT Hospital Encounter [facility] Cardiac Catheterization Lab [address] [place] [address] Anabell Saini MD Other chest pain Discharge Disposition: Discharge to home or self care 01/20/2025 Telephone [facility] Cardiology [address] [facility] [address] [place] [phone] Anabell Saini MD 01/13/2025 Telephone [facility] Cardiology [address] [facility] [address] [place] [phone] Gera Patricio MD 01/12/2025 1:35 PM CDT - 01/12/2025 11:59 PM CDT Hospital Encounter [facility] Imaging [address] [place] [address] Atypical chest pain; History of atrial fibrillation; History of PSVT (paroxysmal supraventricular tachycardia); Essential hypertension Discharge Disposition: Discharge to home or self care 01/12/2025 Results Follow-Up [facility] Cardiology [address] [facility] [address], [place] [address] Gera Patricio MD Atypical chest pain (Primary Dx) 01/12/2025 Telephone [facility] Cardiology [address] [facility] [address] [place] [phone] Gera Patricio MD 01/10/2025 Telephone [facility] Imaging [address] [place], [place] [address] Esthela Perdomo RN 12/15/2024 2:00 PM PRODUCE ASSISTANT Office Visit [facility] Cardiology at [address] [place] [phone] Gera Patricio MD Atypical chest pain (Primary Dx); History of atrial fibrillation; History of PSVT (paroxysmal supraventricular tachycardia); Essential hypertension; Hyperlipidemia, unspecified hyperlipidemia type from Last 3 Months Surgical History Surgery Date Site/Laterality Comments CATARACT EXTRACTION Cataract Surgery KERATOPLASTY RADIAL KERATOTOMY 10/20/1988 - 10/19/1989 Bilateral MOHS SURGERY 10/20/2018 - 11/19/2018 neck COLONOSCOPY ~2015 UPPER GASTROINTESTINAL ENDOSCOPY 10/20/2018 - 10/19/2019 SPERMATOCELECTOMY ~2017 EPIDIDYMECTOMY ORCHIECTOMY Right CARDIAC CATHETERIZATION 01/20/2025 N/A Procedure: LEFT HEART CATHETERIZATION WITH CORONARY ANGIOGRAPHY AND WITH OR WITHOUT LEFT VENTRICULOGRAM [id number]; Surgeon: Anabell Saini MD; Location: CARDIAC TAPE DUPLICATOR; Service: Cardiovascular; Laterality: N/A; ABLATION SVT CAPSULOTOMY CARDIAC ASSIST DEVICE INSERTION Loop recorder CARDIAC ASSIST DEVICE REMOVAL Loop recorder HYDROCELE EXCISION / REPAIR Medical History Medical History Date Comments Osteoporosis [...] smoker quit 1985 GERD (gastroesophageal reflux disease) Chronic pain disorder Low back pain Prediabetes Anxiety Glaucoma History of PSVT (paroxysmal supraventricular tachycardia) Coronary artery disease Ocular migraine hx BCC (basal cell carcinoma of skin) Wears glasses Family History Medical History Relation Name Comments Osteoporosis Brother Glaucoma Mother Heart attack Mother Myocardial Infa rction; Osteoporosis Mother heavy ETOH use Sister 1 smoker Sister 1 Other Sister 4 Implantable Def ibrillator; Macular degeneration Neg Hx Relation Name Status Comments Brother (Age 70) sepsis Father (Age 92) Mother (Age 81) [place] at age 76 Sister 1 (Age 61) 3 hours after shoulder surgery ? cardiac dysarrhtymia Sister 2 Alive Sister 3 Alive Sister 4 Alive Social History Tobacco Use Types Packs/Day Years Used Date Smoking Tobacco: Former Cigarettes 1 16 1 970 - 1985 Smokeless Tobacco: Never Tobacco Cessation:Counseling Given: Not Answered Alcohol Use Standard Drinks/Week Comments Yes 1 (1 standard drink = 0.6 oz pur e alcohol) nightly [facility] Utilities Answer Date Recorded In the past 12 months has e electric, gas, oil, or water company threatened to shut off services in your home? No 01/31/2025 Social Connection and Isolat ion Panel [NHANES] Answer Date Recorded In a typical week, how many times do you talk on the phone with family, friends, or neighbors? More than three times a week 01/31/2025 How often do you get togethe r with friends or relatives? More than three times a week 01/31/2025 How often do you attend chur ch or sikhism services? Never 01/31/2025 Do you belong to any clubs o r organizations such as yarsanism groups, unions, fraternal or athletic groups, or school groups? No 01/31/2025 How often do you attend meet ings of the clubs or organizations you belong to? Never 01/31/2025 Are you , , di vorced, , never , or living with a partner? 01/31/2025 AUDIT-C Answer Date Recorded Q1: How often do you have a drink containing alcohol? 4 or more times a week 01/24/2025 Q2: How many drinks containi ng alcohol do you have on a typical day when you are drinking? 1 or 2 Q3: How often do you have si x or more drinks on one occasion? Never 01/24/2025 Overall Financial Resource Strain (CARDIA) Answe r Date Recorded How hard is it for you to pa y for the very basics like food, housing, medical care, and heating? Not hard at all 01/31/2025 Hunger Vital Sign Answer Date Recorded Within the past 12 months, y ou worried that your food would run out before you got the money to buy more. Never true 02/01/20 25 Within the past 12 months, t he food you bought just didn't last and you didn't have money to get more. Never true 01/31/2025 PRAPARE - Transportation Answer Date Re corded In the past 12 months, has l ack of transportation kept you from medical appointments or from getting medications? No 01/18 In the past 12 months, has l ack of transportation kept you from meetings, work, or from getting things needed for daily living? No 01/31/2025 Housing Stability Vital Sign Answer Dontae e Recorded In the last 12 months, was t here a time when you were not able to pay the mortgage or rent on time? No 01/31/2025 In the past 12 months, how m any times have you moved where you were living? 0 01/31/2025 At any time in the past 12 m [facility], were you homeless or living in a [place] facility (including now)? No 01/31/2025 Personal Safety Answer Date Recorded Have you ever been in or are you currently in a harmful physical or emotional relationship or is someone making you feel afraid or unsafe? Denies 01/26/2025 Sex and Gender Information Value Date Recorded Sex Assigned at Not on file Legal Sex Male 2:36 AM PRODUCE ASSISTANT Gender Identity Not on file Sexual Orientation Not on file Obstetrics History Last Filed Vital Signs Vital Sign Reading Time Taken Comments Blood Pressure 130/64 02/10/2025 10:00 AM CDT Pulse 80 02/10/2025 10:00 AM CDT Temperature 36.3 C (97.3 F) 01/31/2025 12:29 PM CDT Respiratory Rate 18 02/10/2025 10:00 AM CDT Oxygen Saturation 93% 02/10/2025 10:00 AM CDT Inhaled Oxygen Concentration - - Weight 74.8 kg (165 lb) 02/10/2025 10:00 AM CDT Height 170.2 cm (5' 7 ) 02/10/2025 10:00 AM CDT Body Mass Index 25.84 02/10/2025 10:00 AM CDT Plan of Treatment Health Maintenance Due Date Last Done Comments Colon Cancer Screening-Colonoscopy 1950 Depression Screening 1950 Hepatitis C Screening 1950 DTaP/Tdap/Td Vaccine (1 - Tdap) 1961 Hepatitis B Screening 1968 Pneumococcal vaccine 65+ (1 of 2 - PCV) 1969 Zoster Vaccine (1 of 2) 2000 Abdominal Aortic Aneurysm (AAA) Screen 2015 Well Visit 65+ 2015 Influenza Vaccine (Season Ended) 2025 07/21/20 Fall Risk Assessment 01/31/2026 01/31/2025 Medical Devices Implanted Type Area Flight Attendant Device Identifier Shelf Expiration Date Model / Serial / Lot [employer] Plate Bone Low Profile 4 Hole Box Sternum Ti 115.103.04 - [id number] Implanted:Qty: 1 on 01/26/2025 by Kasia Maldonado MD at [facility] Plate N/A: Sternum [employer] 115.103.04 / / [employer] Plate Bone Low Profile 6 Hole H Shape Sternum Ti 115.102.06 - [id number] Implanted:Qty: 1 on 01/26/2025 by Kasia Maldonado MD at [facility] Plate N/A: Sternum [employer] 115.102.06 / / [employer] Plate Bone Low Profile 6 Hole O Shape Sternum Ti 115.104.06 - [id number] Implanted:Qty: 1 on 01/26/2025 by Kasia Maldonado MD at [facility] Plate N/A: Sternum [employer] 115.104.06 / / [employer] Screw Bone Slf Drl Full Thread Locking 3.5x18mm Ti 100.035.18 - [id number] Implanted:Qty: 16 on 01/26/2025 by Kasia Maldonado MD at [facility] Screw N/A: Sternum [employer] 100.035.18 / / Procedures Procedure Name Priority Date/Time Associated Diagnosis Comments EGFR Routine 02/10/2025 10:33 AM CDT Coronary artery disease involving upper [place] coronary artery of upper [place] heart without angina pectoris CBC WITHOUT DIFFERENTIAL Routine 02/10/2025 10:33 AM CDT Coronary artery disease involving upper [place] coronary artery of upper [place] heart without angina pectoris COMPREHENSIVE METABOLIC PANEL Routine 02/10/2025 10:33 AM CDT Coronary artery disease involving upper [place] coronary artery of upper [place] heart without angina pectoris XR CHEST PA LATERAL 2 VIEWS Schedule Routine, Read Routine (OP Routine) 02/04/2025 1:58 PM CDT Coronary artery disease involving upper [place] coronary artery of upper [place] heart without angina pectoris EGFR Routine 02/04/2025 10:33 AM CDT DIFFERENTIAL AUTO Routine 02/04/2025 10:33 AM CDT CBC WITH AUTO DIFFERENTIAL Routine 02/04/2025 10:33 AM CDT COMPREHENSIVE METABOLIC PANEL Routine 02/04/2025 10:33 AM CDT URINALYSIS AND REFLEX TO MICROSCOPIC AND CULTURE Routine 02/04/2025 10:33 AM CDT Burning with urination EGFR Routine 01/31/2025 6:15 AM CDT APTT Routine 01/31/2025 6:15 AM CDT PROTIME-INR Routine 01/31/2025 6:15 AM CDT CBC WITHOUT DIFFERENTIAL Routine 01/31/2025 6:15 AM CDT BASIC METABOLIC PANEL Routine 01/31/2025 6:15 AM CDT XR CHEST 1 VIEW IP Routine 01/31/2025 4:18 AM CDT XR CHEST 1 VIEW IP Routine 01/30/2025 8:01 AM CDT EGFR Routine 01/30/2025 5:00 AM CDT CBC WITHOUT DIFFERENTIAL Routine 01/30/2025 5:00 AM CDT BASIC METABOLIC PANEL Routine 01/30/2025 5:00 AM CDT POCT GLUCOSE DEVICE Routine 01/30/2025 3:39 AM CDT POCT GLUCOSE DEVICE Routine 01/29/2025 9:27 PM CDT POCT GLUCOSE DEVICE Routine 01/29/2025 7:52 AM CDT XR CHEST 1 VIEW IP Routine 01/29/2025 6:15 AM CDT EGFR Routine 01/29/2025 3:08 AM CDT CBC WITHOUT DIFFERENTIAL Routine 01/29/2025 3:08 AM CDT BASIC METABOLIC PANEL Routine 01/29/2025 3:08 AM CDT POCT GLUCOSE DEVICE Routine 01/28/2025 9:15 PM CDT ECG 12-LEAD STAT 01/28/2025 5:33 PM CDT POCT GLUCOSE DEVICE Routine 01/28/2025 4:30 PM CDT CRITICAL CARE Routine 01/28/2025 4:27 PM CDT Coronary artery disease of upper [place] artery of upper [place] heart with stable angina pectoris POCT GLUCOSE DEVICE Routine 01/28/2025 11:40 AM CDT POCT GLUCOSE DEVICE Routine 01/28/2025 6:50 AM CDT POCT GLUCOSE DEVICE Routine 01/28/2025 5:44 AM CDT XR CHEST 1 VIEW IP Routine 01/28/2025 5:40 AM CDT EGFR Routine 01/28/2025 4:37 AM CDT CBC WITHOUT DIFFERENTIAL Routine 01/28/2025 4:37 AM CDT CALCIUM,IONIZED, WHOLE BLOOD Routine 01/28/2025 4:37 AM CDT MAGNESIUM Routine 01/28/2025 4:37 AM CDT BASIC METABOLIC PANEL Routine 01/28/2025 4:37 AM CDT OXYHEMOGLOBIN, CENTRAL VENOUS Routine 01/28/2025 4:37 AM CDT POCT GLUCOSE DEVICE Routine 01/28/2025 4:34 AM CDT POCT GLUCOSE DEVICE Routine 01/28/2025 3:34 AM CDT POCT GLUCOSE DEVICE Routine 01/28/2025 2:36 AM CDT POCT GLUCOSE DEVICE Routine 01/28/2025 1:23 AM CDT POCT GLUCOSE DEVICE Routine 01/28/2025 12:15 AM CDT POCT GLUCOSE DEVICE Routine 01/27/2025 11:22 PM CDT POCT GLUCOSE DEVICE Routine 01/27/2025 10:19 PM CDT POCT GLUCOSE DEVICE Routine 01/27/2025 9:15 PM CDT POCT GLUCOSE DEVICE Routine 01/27/2025 8:04 PM CDT POCT GLUCOSE DEVICE Routine 01/27/2025 7:12 PM CDT EGFR STAT 01/27/2025 6:53 PM CDT CBC WITHOUT DIFFERENTIAL STAT 01/27/2025 6:53 PM CDT BASIC METABOLIC PANEL STAT 01/27/2025 6:53 PM CDT POCT GLUCOSE DEVICE Routine 01/27/2025 6:04 PM CDT CRITICAL CARE Routine 01/27/2025 5:45 PM CDT Coronary artery disease of [place] artery of [place] heart with stable angina pectoris POCT GLUCOSE DEVICE Routine 01/27/2025 4:05 PM CDT POCT GLUCOSE DEVICE Routine 01/27/2025 2:02 PM CDT POCT GLUCOSE DEVICE Routine 01/27/2025 12:17 PM CDT POCT GLUCOSE DEVICE Routine 01/27/2025 10:58 AM CDT ECG 12-LEAD STAT 01/27/2025 10:50 AM CDT POCT GLUCOSE DEVICE Routine 01/27/2025 7:40 AM CDT POCT GLUCOSE DEVICE Routine 01/27/2025 6:27 AM CDT POCT GLUCOSE DEVICE Routine 01/27/2025 5:16 AM CDT XR CHEST 1 VIEW IP Routine 01/27/2025 4:40 AM CDT EGFR Routine 01/27/2025 4:05 AM CDT DIFFERENTIAL AUTO Routine 01/27/2025 4:05 AM CDT OXYHEMOGLOBIN, CENTRAL VENOUS Routine 01/27/2025 4:05 AM CDT MAGNESIUM Routine 01/27/2025 4:05 AM CDT BASIC METABOLIC PANEL Routine 01/27/2025 4:05 AM CDT CBC WITH AUTO DIFFERENTIAL Routine 01/27/2025 4:05 AM CDT POCT GLUCOSE DEVICE Routine 01/27/2025 4:03 AM CDT POCT GLUCOSE DEVICE Routine 01/27/2025 3:02 AM CDT POCT GLUCOSE DEVICE Routine 01/27/2025 1:57 AM CDT POCT GLUCOSE DEVICE Routine 01/27/2025 12:50 AM CDT HEMOGLOBIN AND HEMATOCRIT Timed 01/27/2025 12:44 AM CDT POTASSIUM, WHOLE BLOOD Timed 12:44 AM CDT BLOOD GAS, ARTERIAL Timed 01/27/2025 12:44 AM CDT POCT GLUCOSE DEVICE Routine 01/26/2025 11:58 PM CDT POCT GLUCOSE DEVICE Routine 01/26/2025 10:45 PM CDT POCT GLUCOSE DEVICE Routine 01/26/2025 9:50 PM CDT POCT GLUCOSE DEVICE Routine 01/26/2025 8:52 PM CDT EGFR STAT 01/26/2025 8:02 PM CDT APTT Timed 01/26/2025 8:02 PM CDT PROTIME-INR Timed 01/26/2025 8:02 PM CDT CALCIUM,IONIZED, WHOLE BLOOD STAT 01/26/2025 8:02 PM CDT MAGNESIUM STAT 01/26/2025 8:02 PM CDT BASIC METABOLIC PANEL STAT 01/26/2025 8:02 PM CDT FIBRINOGEN Routine 01/26/2025 8:02 PM CDT CBC WITHOUT DIFFERENTIAL Timed 01/26/2025 8:02 PM CDT BLOOD GAS, ARTERIAL Timed 01/26/2025 8:02 PM CDT TYPE AND SCREEN Timed 01/26/2025 8:02 PM CDT POCT GLUCOSE DEVICE Routine 01/26/2025 7:36 PM CDT POCT GLUCOSE DEVICE Routine 01/26/2025 6:28 PM CDT TRANSFUSE RED BLOOD CELLS Timed 01/26/2025 5:50 PM CDT POCT GLUCOSE DEVICE Routine 01/26/2025 5:28 PM CDT PREPARE RBC STAT 01/26/2025 5:10 PM CDT TRANSFUSE CRYOPRECIPITATE (POOLED UNITS) Timed 01/26/2025 4:35 PM CDT XR CHEST 1 VIEW Critical/Life -Threatening 01/26/2025 4:14 PM CDT EGFR STAT 01/26/2025 4:12 PM CDT APTT STAT 01/26/2025 4:12 PM CDT PROTIME-INR STAT 01/26/2025 4:12 PM CDT CBC WITHOUT DIFFERENTIAL Timed 01/26/2025 4:12 PM CDT BLOOD GAS, ARTERIAL Timed 01/26/2025 4:12 PM CDT BASIC METABOLIC PANEL STAT 01/26/2025 4:12 PM CDT PREPARE CRYOPRECIPITATE (POOLED UNITS) STAT 01/26/2025 3:26 PM CDT POC BLOOD GAS AND CHEMISTRIES, ARTERIAL Routine 01/26/2025 3:21 PM CDT POCT ACTIVATED CLOTTING TIME, HIGH RANGE Routine 01/26/2025 2:14 PM CDT POC BLOOD GAS AND CHEMISTRIES, ARTERIAL Routine 01/26/2025 1:20 PM CDT POCT ACTIVATED CLOTTING TIME, HIGH RANGE Routine 01/26/2025 1:17 PM CDT POC BLOOD GAS AND CHEMISTRIES, ARTERIAL Routine 01/26/2025 12:40 PM CDT POCT ACTIVATED CLOTTING TIME, HIGH RANGE Routine 01/26/2025 12:37 PM CDT PLATELET COUNT STAT 01/26/2025 12:30 PM CDT POC BLOOD GAS AND CHEMISTRIES, ARTERIAL Routine 01/26/2025 12:01 PM CDT POCT ACTIVATED CLOTTING TIME, HIGH RANGE Routine 01/26/2025 11:59 AM CDT POC BLOOD GAS AND CHEMISTRIES, ARTERIAL Routine 01/26/2025 11:32 AM CDT POCT ACTIVATED CLOTTING TIME, HIGH RANGE Routine 01/26/2025 11:29 AM CDT POCT ACTIVATED CLOTTING TIME, HIGH RANGE Routine 01/26/2025 10:48 AM CDT ANESTHESIA CENTRAL VENOUS LINE PLACEMENT Routine 01/26/2025 9:33 AM CDT ANESTHESIA CENTRAL VENOUS LINE PLACEMENT Routine 01/26/2025 9:33 AM CDT [place] AN ELECTIVE ENDOTRACHEAL AIRWAY Routine 01/26/2025 9:32 AM CDT ANESTHESIA ARTERIAL LINE PLACEMENT Routine 01/26/2025 9:31 AM CDT POC BLOOD GAS AND CHEMISTRIES, ARTERIAL Routine 01/26/2025 9:24 AM CDT POCT ACTIVATED CLOTTING TIME, HIGH RANGE Routine 01/26/2025 9:22 AM CDT EXPLORATION CHEST 01/26/2025 8:55 AM CDT Coronary artery disease of [place] heart with stable angina pectoris, unspecified vessel or lesion type CORONARY ARTERY BYPASS GRAFT - INTERNAL MAMMARY ARTERY 01/26/2025 8:55 AM CDT Coronary artery disease of [place] heart with stable angina pectoris, unspecified vessel or lesion type B CHECK SAMPLE STAT 01/26/2025 8:20 AM CDT PREPARE RBC STAT 01/26/2025 7:59 AM CDT POCT GLUCOSE DEVICE Routine 01/26/2025 7:43 AM CDT ECG 12-LEAD Routine 01/24/2025 11:43 AM CDT Coronary artery disease of [place] heart with stable angina pectoris, unspecified vessel or lesion type XR CHEST PA LATERAL 2 VIEWS Schedule Routine, Read Routine (OP Routine) 01/24/2025 11:28 AM CDT Coronary artery disease of [place] heart with stable angina pectoris, unspecified vessel or lesion type EGFR Routine 01/24/2025 11:11 AM CDT Coronary artery disease of [place] heart with stable angina pectoris, unspecified vessel or lesion type BASIC METABOLIC PANEL Routine 01/24/2025 11:11 AM CDT Coronary artery disease of [place] heart with stable angina pectoris, unspecified vessel or lesion type PROTIME-INR Routine 01/24/2025 11:11 AM CDT Coronary artery disease of [place] heart with stable angina pectoris, unspecified vessel or lesion type APTT Routine 01/24/2025 11:11 AM CDT Coronary artery disease of [place] heart with stable angina pectoris, unspecified vessel or lesion type CBC WITHOUT DIFFERENTIAL Routine 01/24/2025 11:11 AM CDT Coronary artery disease of [place] heart with stable angina pectoris, unspecified vessel or lesion type TYPE AND SCREEN Routine 01/24/2025 11:11 AM CDT Coronary artery disease of [place] heart with stable angina pectoris, unspecified vessel or lesion type URINALYSIS AND REFLEX TO MICROSCOPIC AND CULTURE Routine 01/24/2025 11:11 AM CDT Coronary artery disease of [place] heart with stable angina pectoris, unspecified vessel or lesion type US CAROTIDS DUPLEX BILATERAL IP Routine 01/20/2025 2:30 PM CDT TRANSTHORACIC ECHO (TTE) COMPLETE W DOPPLER/CF WO CONTRAST STAT 01/20/2025 1:27 PM CDT POCT GLUCOSE DEVICE Routine 01/20/2025 10:23 AM CDT LEFT HEART CATHETERIZATION WITH CORONARY ANGIOGRAPHY AND WITH AND WITHOUT LEFT VENTRICULOGRAM Routine 01/20/2025 9:42 AM CDT Other chest pain MODERATE SEDATION 01/20/2025 9:[address] angiography EGFR Routine 01/20/2025 8:06 AM CDT DIFFERENTIAL AUTO Routine 01/20/2025 8:06 AM CDT CBC WITH AUTO DIFFERENTIAL Routine 01/20/2025 8:06 AM CDT BASIC METABOLIC PANEL Routine 01/20/2025 8:06 AM CDT POCT GLUCOSE DEVICE Routine 01/20/2025 7:[address] HEART MORPHOLOGY AND CORONARY ARTERIES W CONTRAST Schedule Routine, Read Routine (OP Routine) 01/12/2025 2:18 PM CDT Atypical chest pain History of atrial fibrillation History of PSVT (paroxysmal supraventricular tachycardia) Essential hypertension POC ISTAT Routine 01/12/2025 1:52 PM CDT POCT LIPID PANEL Routine 12/15/2024 2:28 PM PRODUCE ASSISTANT Essential hypertension ELECTROCARDIOGRAM REPORT Routine 12/15/2024 8:17 AM PRODUCE ASSISTANT Atypical chest pain History of PSVT (paroxysmal supraventricular tachycardia) from Last 3 Months Results * eGFR (02/10/2025 10:33 AM CDT) eGFR 69 >=60 mL/min/1. 73 m2 Comment: Interpretive Data Reference Interval Normal >/= 90 mL/min/1.73m2 Mildly decreased* 60 - 89 mL/min/1.73m2 Mildly to moderately decreased 45 - 59 mL/min/1.73m2 Moderately to severely decreased 30 - 44 mL/min/1.73m2 Severely decreased 15 - 29 mL/min/1.73m2 Kidney Failure < 15 mL/min/1.73m2 *Relative to young adult level Estimated glomerular filtration rate is determined by the 2020 CKD-EPI equation recommended by the National Kidney Foundation (A Unifying Approach to GFR Estimation: Recommendations of the NKF-ASK Task Force on Reassessing the Inclusion of Race in Diagnosing Kidney Disease, JASN 2020). The CKD-EPI equation should not be used for patients with unstable renal function and has not been validated in children and those over 70. Current interpretive data was last reviewed 2021. Blood 02/10/2025 10:3 3 AM CDT 02/10/2025 2:49 PM CDT us Jordan Escalera NP LAB BLOOD ORDERABLES Final Result [facility] [id number] Department [place] [address] * (ABNORMAL) CBC without differential (02/10/2025 10:33 AM CDT) WBC 13.51(H) 3.80 - 9.90 K/cumm Hgb 9.7(L) 13.0 - 17.5 g/dL [facility] Hct 30.4(L) 38.9 - 50.3 % [facility] Plt 689(H) 150 - 400 K/cumm [facility] MPV 8.9(L) 9.1 - 12.3 fL [facility] RBC 3.14(L) 4.30 - 5.80 M/cumm [facility] MCV 96.8(H) 81.3 - 96.4 fL [facility] MCH 30.9 27.1 - 33.3 pg [facility] MCHC 31.9(L) 32.3 - 35.7 g/dL [facility] RDW CV 14.4 11.1 - 14.9 % [facility] RDW SD 50.6(H) 35.7 - 48.1 fL [facility] NRBC abs 0.00 0.00 - 0.01 K/cumm [facility] Blood 02/10/2025 10:3 3 AM CDT 02/10/2025 2:16 PM CDT Jordan Escalera [employer] LAB BLOOD ORDERABLES Final Result [facility] [id number] Department [place] [address] * (ABNORMAL) Comprehensive metabolic panel (02/10/2025 10:33 AM CDT) Sodium 133(L) 135 - 145 mmol/L Potassium, pl 4.1 3.3 - 4.9 mmol/L [facility] Chloride 97 97 - 110 mmol/L [facility] CO2 25 22 - 32 mmol/L [facility] Anion gap 11 2 - 15 mmol/L [facility] BUN 16 6 - 25 mg/dL [facility] Creatinine 1.12 0.80 - 1.30 mg/dL [facility] Glucose 107 70 - 199 mg/dL [facility] Comment: Interpretive Data Fasting glucose >/= 126 mg/dl is diagnostic for diabetes. Fasting is defined as no caloric intake for at least 8 hours. Fasting glucose between 100 mg/dl to 125 mg/dl is diagnostic of prediabetes. In a patient with classic symptoms of hyperglycemia or hyperglycemic crisis, a random glucose >/= 200 mg/dl is diagnostic for diabetes. In the absence of unequivocal hyperglycemia, results should be confirmed by repeat testing. The classification and Diagnosis of Diabetes Diabetes Care 2021; 46: S19-S40. Current interpretive data was last revised 2022. Calcium 9.0 8.5 - 10.3 mg/dL [facility] Bilirubin, total 0.3 0.1 - 1.2 mg/dL [facility] Protein, pl 7.4 6.5 - 8.5 g/dL [facility] Albumin 3.6 3.5 - 5.0 g/dL [facility] Alk phos 84 40 - 130 Units/L [facility] ALT 15 7 - 55 Units/L [facility] AST 20 10 - 50 Units/L [facility] Blood 02/10/2025 10:3 3 AM CDT 02/10/2025 2:16 PM CDT us Jordan Escalera NP LAB BLOOD ORDERABLES Final Result [facility] [id number] Department [place] [address] * X-ray chest 2 views (02/04/2025 1:58 PM CDT) Anatomical Region Laterality Modality Body, Chest N/A Computed Radiogr aphy 02/05/2025 7:35 PM CDT Narrative 02/05/2025 7:36 PM CDT EXAM DESCRIPTION: XR CHEST PA LATERAL 2 VIEWS REASON FOR STUDY: s/p CABG/assess for bilateral congestion CABG x 9 days. Intermittent sob since TECHNIQUE: There are 2 radiographic view(s) of the chest. COMPARISON: Prior exam 01/31/2025, 01/30/2025, 01/29/2025 and 01/28/2025 FINDINGS: LUNGS: Pulmonary vascularity appears normal. There is mild opacity of the bilateral lung base. Findings may reflect small effusions as costophrenic angles are not as sharp as the prior exam. Subtle atelectasis or infiltrate possible. HEART/MEDIASTINUM: Prior median sternotomy. Mild tortuosity of the aorta. Otherwise, normal cardiomediastinal silhouette. Likely small CABG clips. LINES/TUBES: None. BONES: Moderate multilevel spondylosis thoracic spine. IMPRESSION: There is mild opacity of the bilateral lung base. Findings may reflect small effusions with adjacent atelectasis or infiltrate. Follow-up recommended to ensure resolution. THIS IS AN ELECTRONICALLY VERIFIED FINAL REPORT 02/05/2025 7:36 PM - Electronically signed by Hollis JOYNER Report ID: [id number] Reading Location: [id number] Procedure Note Hollis Gonzalez MD - 02/05/2025 EXAM DESCRIPTION: XR CHEST PA LATERAL 2 VIEWS REASON FOR STUDY: s/p CABG/assess for bilateral congestion CABG x 9 days. Intermittent sob since TECHNIQUE: There are 2 radiographic view(s) of the chest. COMPARISON: Prior exam 01/31/2025, 01/30/2025, 01/29/2025 and 01/28/2025 FINDINGS: LUNGS: Pulmonary vascularity appears normal. There is mildopacity of the bilateral lung base. Findings may reflect small effusions as costophrenic angles are not as sharp as the prior exam. Subtleatelectasis or infiltrate possible. HEART/MEDIASTINUM: Prior median sternotomy. Mild tortuosity of theaorta. Otherwise, normal cardiomediastinal silhouette. Likely small CABG clips. LINES/TUBES: None. BONES: Moderate multilevel spondylosis thoracic spine. IMPRESSION: There is mild opacity of the bilateral lung base. Findings may reflect small effusions with adjacent atelectasis or infiltrate.Follow-up recommended to ensure resolution. THIS IS AN ELECTRONICALLY VERIFIED FINAL REPORT 02/05/2025 7:36 PM - Electronically signed by Hollis JOYNER: ANYA Report ID: [id number] Reading Location: [id number] us Jordan Escalera [employer] IMG XR PROCEDURES Final Res ult * eGFR (02/04/2025 10:33 AM CDT) eGFR 77 >=60 mL/min/1. 73 m2 Comment: Interpretive Data Reference Interval Normal >/= 90 mL/min/1.73m2 Mildly decreased* 60 - 89 mL/min/1.73m2 Mildly to moderately decreased 45 - 59 mL/min/1.73m2 Moderately to severely decreased 30 - 44 mL/min/1.73m2 Severely decreased 15 - 29 mL/min/1.73m2 Kidney Failure < 15 mL/min/1.73m2 *Relative to young adult level Estimated glomerular filtration rate is determined by the 2020 CKD-EPI equation recommended by the National Kidney Foundation (A Unifying Approach to GFR Estimation: Recommendations of the NKF-ASK Task Force on Reassessing the Inclusion of Race in Diagnosing Kidney Disease, JASN 2020). The CKD-EPI equation should not be used for patients with unstable renal function and has not been validated in children and those over 70. Current interpretive data was last reviewed 2021. Testing performed by: [address] [address] Blood 02/04/2025 10:3 3 AM CDT 02/04/2025 11:17 AM CDT us Jordan Escalera NP LAB BLOOD ORDERABLES Final Result [facility]A ALVAREZ [address] [facility] Department of Laboratories [place], [place] [id number] * (ABNORMAL) Differential, auto (02/04/2025 10:33 AM CDT) Pathologist [facility] [place] Neutrophil abs 10.94(H) 1.50 - 6.50 K/cumm Comment:Testing performed by : [address] [address] Imm gran abs 0.25(H) 0.00 - 0.10 K/cumm AYAKA ALVAREZ Comment:Testing performed by : [address] [address] Lymphocyte abs 1.77 0.80 - 3.30 K/cumm AYAKA ALVAREZ Comment:Testing performed by : [address] [address] Monocyte abs 1.58(H) 0.20 - 0.80 K/cumm [facility] Comment:Testing performed by : [address] [address] Eosinophil abs 0.27 0.00 - 0.50 K/cumm [facility] Comment:Testing performed by : [address] [address] Basophil abs 0.09 0.00 - 0.10 K/cumm [facility] Comment:Testing performed by : [address] [address] Neutrophil pct 73.4 % [facility] Comment: Interpretive Data Percent cell count reference ranges are not reported, since discordance with absolute values may lead to misinterpretation of CBC data. Current Interpretive Data was last revised on 2018. Testing performed by: [address] [address] Imm gran pct 1.7 % [facility] Comment: Interpretive Data Percent cell count reference ranges are not reported, since discordance with absolute values may lead to misinterpretation of CBC data. Current Interpretive Data was last revised on 2018. Testing performed by: [address] [address] Lymphocyte pct 11.9 % [facility] Comment: Interpretive Data Percent cell count reference ranges are not reported, since discordance with absolute values may lead to misinterpretation of CBC data. Current Interpretive Data was last revised on 2018. Testing performed by: [address] [address] Monocyte pct 10.6 % [facility] Comment: Interpretive Data Percent cell count reference ranges are not reported, since discordance with absolute values may lead to misinterpretation of CBC data. Current Interpretive Data was last revised on 2018. Testing performed by: [address] [address] Eosinophil pct 1.8 % [facility] Comment: Interpretive Data Percent cell count reference ranges are not reported, since discordance with absolute values may lead to misinterpretation of CBC data. Current Interpretive Data was last revised on 2018. Testing performed by: [address] [place] [address] Basophil pct 0.6 % [facility]AK[facility] ALVAREZ Comment: Interpretive Data Percent cell count reference ranges are not reported, since discordance with absolute values may lead to misinterpretation of CBC data. Current Interpretive Data was last revised on 2018. Testing performed by: [address] [address] Blood 02/04/2025 10:3 3 AM CDT 02/04/2025 11:19 AM CDT us Jordan Escalera [employer] LAB BLOOD ORDERABLES Final Result [facility] [address] [facility] Department [place] [address] * Urinalysis reflex to microscopic and culture Urine, clean voided (02/04/2025 10:33 AM CDT) Color, ur Straw Yellow Comment:Testing performed by : [address] [address] Clarity, ur Clear Clear AYAKA Comment:Testing performed by : [address] [address] Specific gravity, ur 1.010 1.003 - 1.030 AYAKA Comment:Testing performed by : [address] [address] pH, urine 6.5 AYAKA Comment: Interpretive Data U rine pH is affected by diet, medications, systemic acid-base disturbances, and renal tubular function. pH may affect urinary stone formation. For example, urine pH below 6.0 may help reduce the tendency for calcium phosphate stones and pH greater than 6.0 may reduce the tendency for uric acid stone formation. Source: [facility] nfon Current Interpretive Data was last revised on 2017 Testing performed by: [address] [address] Protein, ur ql Negative Negative AYAKA Comment:Testing performed by : [address] [address] Glucose, ur ql Negative Negative AYAKA Comment:Testing performed by : [address] [address] Ketones, ur Negative Negative AYAKA ALVAREZ Comment:Testing performed by : [address], [place]., [address] Bilirubin, ur Negative Negative AYAKA ALVAREZ Comment:Testing performed by : [address], [place]., [address] Blood, ur Negative Negative AYAKA ALVAREZ Comment:Testing performed by : [address], [place]., [address] Urobilinogen, ur <2.0 <2.0 mg/dL AYAKA ALVAREZ Comment:Testing performed by : [address], [place]., [address] Nitrite, ur Negative Negative AYAKA ALVAREZ Comment:Testing performed by : [address], [place]., [address] Leukocyte esterase, ur Negative Negative AYAKA Comment:Testing performed by : [address], [place]., [address] UA reflex comment Reflex conditions for microscopic UA and culture not met. AYAKA Comment:Testing performed by : [address], [place]., [address] Urine, clean voided 02/04/2025 10:33 AM CDT 02/04/2025 11:37 AM CDT us Jordan Escalera NP LAB MICROBIOLOGY - GENERAL ORDERABLES Final Result [facility]AKA [address] [facility] Department of Laboratories [place], [place] [id number] * (ABNORMAL) CBC with auto differential (02/04/2025 10:33 AM CDT) WBC 14.90(H) 3.80 - 9.90 K/cumm Comment:Testing performed by : [address], [place]., [address] Hgb 8.9(L) 13.0 - 17.5 g/dL AYAKA ALVAREZ Comment:Testing performed by : [address], [place]., [address] Hct 27.4(L) 38.9 - 50.3 % AYAKA Comment:Testing performed by : [address], [address] Plt 483(H) 150 - 400 K/cumm AYAKA ALVAREZ Comment:Testing performed by : [address], [address] MPV 9.4 9.1 - 12.3 fL AYAKA Comment:Testing performed by : [address], [address] RBC 2.88(L) 4.30 - 5.80 M/cumm AYAKA Comment:Testing performed by : [address], [address] MCV 95.1 81.3 - 96.4 fL AYAKA Comment:Testing performed by : [address], [address] MCH 30.9 27.1 - 33.3 pg AYAKA Comment:Testing performed by : [address], [address] MCHC 32.5 32.3 - 35.7 g/dL [facility]YAKA Comment:Testing performed by : [address], [address] RDW CV 14.1 11.1 - 14.9 % [facility]YAKA Comment:Testing performed by : [address], [address] RDW SD 48.6(H) 35.7 - 48.1 fL AYAKA Comment:Testing performed by : [address], [address] NRBC abs 0.00 0.00 - 0.01 K/cumm AYAKA Comment:Testing performed by : [address], [address] Blood 02/04/2025 10:3 3 AM CDT 02/04/2025 11:19 AM CDT us Jordan Escalera NP LAB BLOOD ORDERABLES Final Result AYAKA ALVAREZ [address] [facility] Department [place] [address] * (ABNORMAL) Comprehensive metabolic panel (02/04/2025 10:33 AM CDT) Sodium 130(L) 135 - 145 mmol/L Comment:Testing performed by : [address] [address] Potassium, pl 4.6 3.3 - 4.9 mmol/L AYAKA Comment:Testing performed by : [address] [address] Chloride 96(L) 97 - 110 mmol/L AYAKA Comment:Testing performed by : [address] [address] CO2 24 22 - 32 mmol/L AYAKA Comment:Testing performed by : [address] [address] Anion gap 10 2 - 15 mmol/L AYAKA Comment:Testing performed by : [address] [address] BUN 29(H) 6 - 25 mg/dL AYAKA Comment:Testing performed by : [address] [address] Creatinine 1.02 0.80 - 1.30 mg/dL AYAKA Comment:Testing performed by : [address] [address] Glucose 204(H) 70 - 199 mg/dL [facility]YAKA Comment: Interpretive Data Fasting glucose >/= 126 mg/dl is diagnostic for diabetes. Fasting is defined as no caloric intake for at least 8 hours. Fasting glucose between 100 mg/dl to 125 mg/dl is diagnostic of prediabetes. In a patient with classic symptoms of hyperglycemia or hyperglycemic crisis, a random glucose >/= 200 mg/dl is diagnostic for diabetes. In the absence of unequivocal hyperglycemia, results should be confirmed by repeat testing. The classification and Diagnosis of Diabetes Diabetes Care 202; 46: S19-S40. Current interpretive data was last revised 2022. Testing performed by: [address] [address] Calcium 9.0 8.5 - 10.3 mg/dL [facility]YAKA Comment:Testing performed by : [address] [address] Bilirubin, total 0.4 0.1 - 1.2 mg/dL AYAKA Comment:Testing performed by : [address] [address] Protein, pl 6.8 6.5 - 8.5 g/dL AYAKA Comment:Testing performed by : [address] [address] Albumin 3.4(L) 3.5 - 5.0 g/dL AYAKA Comment:Testing performed by : [address] [address] Alk phos 78 40 - 130 Units/L [facility]YAKA Comment:Testing performed by : [address] [address] ALT 23 7 - 55 Units/L [facility]YAKA Comment:Testing performed by : [address] [address] AST 30 10 - 50 Units/L [facility]A Comment:Testing performed by : [address] [address] Blood 02/04/2025 10:3 3 AM CDT 02/04/2025 11:17 AM CDT Jordan Escalera NP LAB BLOOD ORDERABLES Final Result Performing Organization Address City/State/[facility] Co de Phone Number AYAKA [address] [facility] Department [place] [address] * eGFR (01/31/2025 6:15 AM CDT) eGFR >90 >=60 mL/min/1. 73 m2 Comment: Interpretive Data Reference Interval Normal >/= 90 mL/min/1.73m2 Mildly decreased* 60 - 89 mL/min/1.73m2 Mildly to moderately decreased 45 - 59 mL/min/1.73m2 Moderately to severely decreased 30 - 44 mL/min/1.73m2 Severely decreased 15 - 29 mL/min/1.73m2 Kidney Failure < 15 mL/min/1.73m2 *Relative to young adult level Estimated glomerular filtration rate is determined by the 2020 CKD-EPI equation recommended by the National Kidney Foundation (A Unifying Approach to GFR Estimation: Recommendations of the NKF-ASK Task Force on Reassessing the Inclusion of Race in Diagnosing Kidney Disease, JASN 2020). The CKD-EPI equation should not be used for patients with unstable renal function and has not been validated in children and those over 70. Current interpretive data was last reviewed 2021. Blood 01/31/2025 6:15 AM CDT 01/31/2025 6:50 AM CDT Kasia Maldonado MD LAB BLOOD ORDERABLES Final Res ult Performing Organization Address [facility] Co de Phone Number AYAKA [address] [place] [address] * (ABNORMAL) aPTT (01/31/2025 6:15 AM CDT) aPTT 27(L) 28 - 38 sec Comment: Interpretive Data Heparin therapeutic range: 66.0 - 100.0 seconds. Range based on correlation with therapeutic heparin activity range of 0.3 - 0.7 Units/mL. Current interpretive data was last revised on 2023. Blood 01/31/2025 6:15 AM CDT 01/31/2025 6:40 AM CDT us Rabia Becerra NP LAB BLOOD ORDERABLES Gale l Result Performing Organization Address City/[facility]/ZIP Co de Phone Number AYAKA [address] [place] [address] * Protime-INR (01/31/2025 6:15 AM CDT) PT 12.9 9.7 - 13.0 sec INR 1.19 0.90 - 1.20 AYAKA Comment: Interpretive data Oral anticoagulant therapeutic ranges: Venous thromboembolism prophylaxis or treatment: 2.0-3.0 CARDIOLOGY Standard range: 2.0-3.0 High-intensity range: 2.5-3.5 Refer to indication-specific guidelines for appropriate target ranges for prosthetic heart valve replacement. Current interpretive data was last revised on 2019. Blood 01/31/2025 6:15 AM CDT 01/31/2025 6:40 AM CDT us Rabia Becerra [employer] LAB BLOOD ORDERABLES Gale l Result Performing Organization Address [facility] Co de Phone Number AYAKA HARRIS [address] Department [place] [address] * (ABNORMAL) CBC without differential (01/31/2025 6:15 AM CDT) WBC 10.85(H) 3.80 - 9.90 K/cumm Hgb 8.4(L) 13.0 - 17.5 g/dL [facility] Hct 25.2(L) 38.9 - 50.3 % [facility] Plt 222 150 - 400 K/cumm [facility] MPV 9.5 9.1 - 12.3 fL [facility] RBC 2.65(L) 4.30 - 5.80 M/cumm [facility] MCV 95.1 81.3 - 96.4 fL [facility] MCH 31.7 27.1 - 33.3 pg [facility] MCHC 33.3 32.3 - 35.7 g/dL [facility] RDW CV 13.8 11.1 - 14.9 % [facility] RDW SD 48.1 35.7 - 48.1 fL [facility] NRBC abs 0.00 0.00 - 0.01 K/cumm [facility] Blood 01/31/2025 6:15 AM CDT 01/31/2025 6:40 AM CDT us Kasia Maldonado MD LAB BLOOD ORDERABLES Final Res ult Performing Organization Address [facility] Co de Phone Number AYAKA HARRIS [address] Department [place] [address] * (ABNORMAL) Basic metabolic panel (01/31/2025 6:15 AM CDT) Sodium 133(L) 135 - 145 mmol/L Potassium, pl 4.1 3.3 - 4.9 mmol/L [facility] Chloride 98 97 - 110 mmol/L [facility] CH CO2 27 22 - 32 mmol/L [facility] Anion gap 8 2 - 15 mmol/L [facility] BUN 25 6 - 25 mg/dL [facility] Creatinine 0.86 0.80 - 1.30 mg/dL [facility] Glucose 103 70 - 199 mg/dL [facility] Comment: Interpretive Data Fasting glucose >/= 126 mg/dl is diagnostic for diabetes. Fasting is defined as no caloric intake for at least 8 hours. Fasting glucose between 100 mg/dl to 125 mg/dl is diagnostic of prediabetes. In a patient with classic symptoms of hyperglycemia or hyperglycemic crisis, a random glucose >/= 200 mg/dl is diagnostic for diabetes. In the absence of unequivocal hyperglycemia, results should be confirmed by repeat testing. The classification and Diagnosis of Diabetes Diabetes Care 2021; 46: S19-S40. Current interpretive data was last revised 2022. Calcium 8.4(L) 8.5 - 10.3 mg/dL [facility] Blood 01/31/2025 6:15 AM CDT 01/31/2025 6:40 AM CDT us Kasia Maldonado MD LAB BLOOD ORDERABLES Final Res ult [facility] [address] Department [place] [address] * XR Chest 1 View - Portable - in AM (01/31/2025 4:18 AM CDT) Anatomical Region Laterality Modality Body, Chest N/A Computed Radiogr aphy 01/31/2025 8:18 AM CDT Impressions 01/31/2025 8:18 AM CDT No failure. Electronically signed by: Matthew More M.D. Narrative 01/31/2025 8:18 AM CDT EXAMINATION: XR CHEST 1 VIEW HISTORY: The patient is a 74-year-old male who has had cardiac surgery. Comparison made with the previous study dated 01/30/2025. TECHNIQUE: AP portable view of the chest. FINDINGS: Cardiomegaly with aortic atherosclerosis. No failure. No active infiltrate. The tip of the retracted [place] catheter is in the distal superior vena cava. Procedure Note Matthew Mroe MD - 01/31/2025 EXAMINATION: XR CHEST 1 VIEW HISTORY: The patient is a 74-year-old male who has had cardiac surgery. Comparison made with the previous study dated 01/30/2025. TECHNIQUE: AP portable view of the chest. FINDINGS: Cardiomegaly with aortic atherosclerosis. No failure. No active infiltrate. The tip of the retracted [place] catheter is in the distal superior vena cava. IMPRESSION: No failure. Electronically signed by: Matthew More M.D. Kasia Maldonado MD IMG XR PROCEDURES Final Result * XR Chest 1 View - Portable - in AM (01/30/2025 8:01 AM CDT) Anatomical Region Laterality Modality Body, Chest N/A Computed Radiogr aphy 01/30/2025 12:2 1 PM CDT Impressions 01/30/2025 12:21 PM CDT No failure. Electronically signed by: Matthew More M.D. Narrative 01/30/2025 12:21 PM CDT EXAMINATION: XR CHEST 1 VIEW HISTORY: The patient is a 74-year-old male who has had cardiac surgery. Comparison made with the previous study dated 01/29/2025 TECHNIQUE: AP portable view of the chest. FINDINGS: Cardiomegaly with aortic atherosclerosis. No failure. No active infiltrate. The distal tip of a retracted [place] catheter is in the distal superior vena cava. Procedure Note Matthew More MD - 01/30/2025 EXAMINATION: XR CHEST 1 VIEW HISTORY: The patient is a 74-year-old male who has had cardiac surgery. Comparison made with the previous study dated 01/29/2025 TECHNIQUE: AP portable view of the chest. FINDINGS: Cardiomegaly with aortic atherosclerosis. No failure. No active infiltrate. The distal tip of a retracted [place] catheter is in the distal superior vena cava. IMPRESSION: No failure. Electronically signed by: Matthew More M.D. Kasia Maldonado MD IMG XR PROCEDURES Final Result * eGFR (01/30/2025 5:00 AM CDT) eGFR >90 >=60 mL/min/1. 73 m2 Comment: Interpretive Data Reference Interval Normal >/= 90 mL/min/1.73m2 Mildly decreased* 60 - 89 mL/min/1.73m2 Mildly to moderately decreased 45 - 59 mL/min/1.73m2 Moderately to severely decreased 30 - 44 mL/min/1.73m2 Severely decreased 15 - 29 mL/min/1.73m2 Kidney Failure < 15 mL/min/1.73m2 *Relative to young adult level Estimated glomerular filtration rate is determined by the 2020 CKD-EPI equation recommended by the National Kidney Foundation (A Unifying Approach to GFR Estimation: Recommendations of the NKF-ASK Task Force on Reassessing the Inclusion of Race in Diagnosing Kidney Disease, JASN 2020). The CKD-EPI equation should not be used for patients with unstable renal function and has not been validated in children and those over 70. Current interpretive data was last reviewed 2021. Blood 01/30/2025 5:00 AM CDT 01/30/2025 5:48 AM CDT Kasia Maldonado MD LAB BLOOD ORDERABLES Final Res ult AYAKA HARRIS [address] Department [place] [address] * (ABNORMAL) CBC without differential (01/30/2025 5:00 AM CDT) WBC 12.79(H) 3.80 - 9.90 K/cumm Hgb 8.6(L) 13.0 - 17.5 g/dL AYAKA HARRIS Hct 26.1(L) 38.9 - 50.3 % [facility] Plt 192 150 - 400 K/cumm [facility] MPV 9.7 9.1 - 12.3 fL [facility] RBC 2.73(L) 4.30 - 5.80 M/cumm [facility] MCV 95.6 81.3 - 96.4 fL [facility] MCH 31.5 27.1 - 33.3 pg [facility] MCHC 33.0 32.3 - 35.7 g/dL [facility] RDW CV 13.9 11.1 - 14.9 % [facility] RDW SD 48.7(H) 35.7 - 48.1 fL [facility] NRBC abs 0.00 0.00 - 0.01 K/cumm [facility] Blood 01/30/2025 5:00 AM CDT 01/30/2025 5:33 AM CDT Kasia Maldonado MD LAB BLOOD ORDERABLES Final Res ult [facility] [address] Department of Laboratories [place], [place] [id number] * (ABNORMAL) Basic metabolic panel (01/30/2025 5:00 AM CDT) Sodium 132(L) 135 - 145 mmol/L Potassium, pl 4.2 3.3 - 4.9 mmol/L [facility] Chloride 98 97 - 110 mmol/L [facility] CO2 26 22 - 32 mmol/L [facility] Anion gap 8 2 - 15 mmol/L [facility] BUN 30(H) 6 - 25 mg/dL [facility] Creatinine 0.85 0.80 - 1.30 mg/dL [facility] Glucose 113 70 - 199 mg/dL [facility] Comment: Interpretive Data Fasting glucose >/= 126 mg/dl is diagnostic for diabetes. Fasting is defined as no caloric intake for at least 8 hours. Fasting glucose between 100 mg/dl to 125 mg/dl is diagnostic of prediabetes. In a patient with classic symptoms of hyperglycemia or hyperglycemic crisis, a random glucose >/= 200 mg/dl is diagnostic for diabetes. In the absence of unequivocal hyperglycemia, results should be confirmed by repeat testing. The classification and Diagnosis of Diabetes Diabetes Care 2021; 46: S19-S40. Current interpretive data was last revised 2022. Calcium 8.4(L) 8.5 - 10.3 mg/dL [facility] Blood 01/30/2025 5:00 AM CDT 01/30/2025 5:33 AM CDT Kasia Maldonado MD LAB BLOOD ORDERABLES Final Res ult Performing Organization Address [facility] Co de Phone Number AYAKA [address] [place] [address] * POCT glucose (01/30/2025 3:39 AM CDT) Glucose, POC 132 70 - 199 mg/dL POC Performer [id number] [facility] Blood 01/30/2025 3:39 AM CDT 01/30/2025 3:39 AM CDT Kasia Maldonado MD LAB POCT ORDERABLES - DEVICE F inal Result Performing Organization Address [facility] de Phone Number AYAKA [address] [place] [address] * POCT glucose (01/29/2025 9:27 PM CDT) Glucose, POC 139 70 - 199 mg/dL POC Performer [id number] [facility] Blood 01/29/2025 9:27 PM CDT 01/29/2025 9:27 PM CDT Kasia Maldonado MD LAB POCT ORDERABLES - DEVICE F inal Result Performing Organization Address [facility] Co de Phone Number AYAKA [address] [place] [address] * POCT glucose (01/29/2025 7:52 AM CDT) Glucose, POC 132 70 - 199 mg/dL POC Performer [id number] AYAKA HARRIS Blood 01/29/2025 7:52 AM CDT 01/29/2025 7:52 AM CDT Kasia Maldonado MD LAB POCT ORDERABLES - DEVICE F inal Result AYAKA [address] Department [place] [address] * XR Chest 1 View - Portable - in AM (01/29/2025 6:15 AM CDT) Anatomical Region Laterality Modality Body, Chest N/A Computed Radiogr aphy 01/29/2025 11:4 2 AM CDT Impressions 01/29/2025 11:42 AM CDT A right internal jugular central venous catheter is in place, with tip overlying the superior cavoatrial junction. Median sternotomy wires and plates. No focal opacity suggestive of mass or pneumonia. No pleural effusion or pneumothorax. Cardiomediastinal silhouette is normal. Electronically signed by: Homer Malone M.D. Narrative 01/29/2025 11:42 AM CDT EXAMINATION: XR CHEST 1 VIEW HISTORY: s/p cardiac surg Procedure Note Homer Malone MD - 01/29/2025 EXAMINATION: XR CHEST 1 VIEW HISTORY: s/p cardiac surg IMPRESSION: A right internal jugular central venous catheter is in place, with tip overlying the superior cavoatrial junction. Median sternotomy wires and plates. No focal opacity suggestive of mass or pneumonia. No pleural effusion or pneumothorax. Cardiomediastinal silhouette is normal. Electronically signed by: Homer Malone M.D. Kasia Maldonado MD IMG XR PROCEDURES Final Result * eGFR (01/29/2025 3:08 AM CDT) [facility] eGFR 90 >=60 mL/min/1. 73 m2 Comment: Interpretive Data Reference Interval Normal >/= 90 mL/min/1.73m2 Mildly decreased* 60 - 89 mL/min/1.73m2 Mildly to moderately decreased 45 - 59 mL/min/1.73m2 Moderately to severely decreased 30 - 44 mL/min/1.73m2 Severely decreased 15 - 29 mL/min/1.73m2 Kidney Failure < 15 mL/min/1.73m2 *Relative to young adult level Estimated glomerular filtration rate is determined by the 2020 CKD-EPI equation recommended by the National Kidney Foundation (A Unifying Approach to GFR Estimation: Recommendations of the NKF-ASK Task Force on Reassessing the Inclusion of Race in Diagnosing Kidney Disease, JASN 2020). The CKD-EPI equation should not be used for patients with unstable renal function and has not been validated in children and those over 70. Current interpretive data was last reviewed 2021. Blood 01/29/2025 3:08 AM CDT 01/29/2025 4:51 AM CDT us Kasia Maldonado MD LAB BLOOD ORDERABLES Final Res ult [facility] [address] Department [place] [address] * (ABNORMAL) CBC without differential (01/29/2025 3:08 AM CDT) WBC 15.72(H) 3.80 - 9.90 K/cumm Hgb 8.8(L) 13.0 - 17.5 g/dL [facility] Hct 26.6(L) 38.9 - 50.3 % [facility] Plt 155 150 - 400 K/cumm [facility] MPV 10.2 9.1 - 12.3 fL [facility] RBC 2.80(L) 4.30 - 5.80 M/cumm [facility] MCV 95.0 81.3 - 96.4 fL [facility] MCH 31.4 27.1 - 33.3 pg [facility] MCHC 33.1 32.3 - 35.7 g/dL [facility] CH RDW CV 14.0 11.1 - 14.9 % [facility] CH RDW SD 49.0(H) 35.7 - 48.1 fL [facility] NRBC abs 0.00 0.00 - 0.01 K/cumm [facility] Blood 01/29/2025 3:08 AM CDT 01/29/2025 4:52 AM CDT us Kasia Maldonado MD LAB BLOOD ORDERABLES Final Res ult AYAKA HARRIS [address] [address] Department [place] [address] * (ABNORMAL) Basic metabolic panel (01/29/2025 3:08 AM CDT) Sodium 138 135 - 145 mmol/L Potassium, pl 3.5 3.3 - 4.9 mmol/L [facility] Chloride 99 97 - 110 mmol/L [facility] CO2 27 22 - 32 mmol/L [facility] Anion gap 12 2 - 15 mmol/L [facility] BUN 28(H) 6 - 25 mg/dL [facility] Creatinine 0.90 0.80 - 1.30 mg/dL [facility] Glucose 120 70 - 199 mg/dL [facility] Comment: Interpretive Data Fasting glucose >/= 126 mg/dl is diagnostic for diabetes. Fasting is defined as no caloric intake for at least 8 hours. Fasting glucose between 100 mg/dl to 125 mg/dl is diagnostic of prediabetes. In a patient with classic symptoms of hyperglycemia or hyperglycemic crisis, a random glucose >/= 200 mg/dl is diagnostic for diabetes. In the absence of unequivocal hyperglycemia, results should be confirmed by repeat testing. The classification and Diagnosis of Diabetes Diabetes Care 2021; 46: S19-S40. Current interpretive data was last revised 2022. Calcium 8.4(L) 8.5 - 10.3 mg/dL [facility] Blood 01/29/2025 3:08 AM CDT 01/29/2025 4:51 AM CDT us Kasia Maldonado MD LAB BLOOD ORDERABLES Final Res ult AYAKA HARRIS [address] Department [place] [address] * POCT glucose (01/28/2025 9:15 PM CDT) Glucose, POC 175 70 - 199 mg/dL POC Performer [id number] [facility] Blood 01/28/2025 9:15 PM CDT 01/28/2025 9:15 PM CDT Kasia Maldonado MD LAB POCT ORDERABLES - DEVICE F inal Result Performing Organization Address [facility] de Phone Number AYAKA KIMBERLY [address] [place] [address] * ECG 12 lead (01/28/2025 5:33 PM CDT) 01/28/2025 5:33 PM CDT Narrative [facility] - 01/29/2025 6:50 AM CDT Vent Rate: 119 bpm RR Interval: 503 msec [place] Interval: 0 msec QRS Duration: 93 msec QT Interval: 318 msec QTC Interval: 389 msec P-R-T [place]: 0 - -9 - 8 degrees IMPRESSION: ATRIAL FIBRILLATION WITH RAPID VENTRICULAR RESPONSE LOW QRS VOLTAGE IN PRECORDIAL LEADS ABNORMAL RHYTHM ECG Electronically Signed By: Dr. Rivas Lehman [facility] Result [facility] Kasia Maldonado MD ECG ORDERABLES Final Result Performing Organization Address [facility] Co de Phone Number [facility] * POCT glucose (01/28/2025 4:30 PM CDT) Glucose, POC 145 70 - 199 mg/dL POC Performer [id number] [facility] Blood 01/28/2025 4:30 PM CDT 01/28/2025 4:30 PM CDT Kasia Maldonado MD LAB POCT ORDERABLES - DEVICE F inal Result Performing Organization Address [facility] Co de Phone Number AYAKA KIMBERLY [address] Department [place] [address] * Critical Care (01/28/2025 4:27 PM CDT) Narrative Hollis Phillips MD - 01/28/2025 4:27 PM CDT Hollis Phillips MD 01/28/2025 4:40 PM Critical Care Performed by: Hollis Phillips MD Authorized by: Hollis Phillips MD CRITICAL CARE: Team: LUKE Shift: AM Level of Billing: Critical Care My time spent with this patient was 30 minutes: Critical Provider Statement: I have seen and examined the patient on this day of service. I have reviewed and confirmed the history, physical exam, laboratory and radiologic data as documented in the signed ICU note. I have reviewed and discussed my treatment plan with the ICU team and other medical/bus info consultant staff, making frequent assessments and decisions regarding this patient's complex medical care. Critical Care time was exclusive of time spent performing separately billed procedures, treating other patients, and teaching. This time was in addition to and separate from critical care provided by other practitioners in my group on this day of service. Critical Care was necessary to treat or prevent imminent or life-threatening deterioration of the following conditions: Acute pain/acute postoperative pain Acute electrolyte derangement and Hypo- or Hyperglycemia This time was spent by me doing the following: Serial bedside patient exams and Serial laboratory checks Acute pain control Glycemic control I spent time reviewing and interpreting data from bedside monitors, laboratory results, and imaging, I spent time discussing the management of this critically ill patient with consultants and the medical staff and I spent time documenting in the medical record Hollis Phillips MD IN CLINIC/BEDSIDE ORDERABLES Final Result * POCT glucose (01/28/2025 11:40 AM CDT) [facility] Signature Glucose, POC 145 70 - 199 mg/dL POC Performer [id number] AYAKA Blood 01/28/2025 11:4 0 AM CDT 01/28/2025 11:40 AM CDT Kasia Maldonado MD LAB POCT ORDERABLES - DEVICE F inal Result AYAKA HARRIS [address] [place] [address] * POCT glucose (01/28/2025 6:50 AM CDT) Glucose, POC 105 70 - 199 mg/dL POC Performer [id number] [facility] Blood 01/28/2025 6:50 AM CDT 01/28/2025 6:50 AM CDT Kasia Maldonado MD LAB POCT ORDERABLES - DEVICE F inal Result Performing Organization Address [facility] Co de Phone Number AYAKA HARRIS [address] [address] [place] [address] * POCT glucose (01/28/2025 5:44 AM CDT) Glucose, POC 117 70 - 199 mg/dL [facility]OC [facility] [id number] [facility] Blood 01/28/2025 5:44 AM CDT 01/28/2025 5:44 AM CDT Kasia Maldonado MD LAB POCT ORDERABLES - DEVICE F inal Result Performing Organization Address [facility] de Phone Number AYAKA HARRIS [address] [place] [address] * XR Chest 1 View - Portable - in AM (01/28/2025 5:40 AM CDT) Anatomical Region Laterality Modality Body, Chest N/A Computed Radiogr aphy 01/28/2025 8:42 AM CDT Impressions 01/28/2025 8:42 AM CDT Findings as described above. Electronically signed by: Matthew More M.D. Narrative 01/28/2025 8:42 AM CDT EXAMINATION: XR CHEST 1 VIEW HISTORY: The patient is a 74-year-old male who has had cardiac surgery. Comparison made with the previous study dated 01/27/2025. TECHNIQUE: AP portable view of the chest. FINDINGS: Left thoracostomy tube and mediastinal drain in place. The tip of a retracted [place] catheter is in the superior vena cava. Cardiomegaly with aortic atherosclerosis. No failure. Right basal subsegmental atelectasis with the remainder of the lungs being clear. Procedure Note Matthew More MD - 01/28/2025 EXAMINATION: XR CHEST 1 VIEW HISTORY: The patient is a 74-year-old male who has had cardiac surgery. Comparison made with the previous study dated 01/27/2025. TECHNIQUE: AP portable view of the chest. FINDINGS: Left thoracostomy tube and mediastinal drain in place. The tip of a retracted [place] catheter is in the superior vena cava. Cardiomegaly with aortic atherosclerosis. No failure. Right basal subsegmental atelectasis with the remainder of the lungs being clear. IMPRESSION: Findings as described above. Electronically signed by: Matthew More M.D. Kasia Maldonado MD IMG XR PROCEDURES Final Result * Oxyhemoglobin, central venous (01/28/2025 4:37 AM CDT) Oxyhemoglobin, CV 56.1 % Comment: Interpretive Data No reference range established. Current interpretive data was last revised 2020. Blood 01/28/2025 4:37 AM CDT 01/28/2025 4:44 AM CDT Kasia Maldonado MD LAB BLOOD ORDERABLES Final Res ult [facility] [address] [place] [address] * (ABNORMAL) Calcium, ionized, whole blood (01/28/2025 4:37 AM CDT) Ca, ionized, bld 4.33(L) 4.50 - 5.10 mg/dL Blood 01/28/2025 4:37 AM CDT 01/28/2025 4:44 AM CDT Kasia Maldonado MD LAB BLOOD ORDERABLES Final Res ult Performing Organization Address [facility] Co de Phone Number AYAKA HARRIS [address] [place] [address] * eGFR (01/28/2025 4:37 AM CDT) eGFR >90 >=60 mL/min/1. 73 m2 Comment: Interpretive Data Reference Interval Normal >/= 90 mL/min/1.73m2 Mildly decreased* 60 - 89 mL/min/1.73m2 Mildly to moderately decreased 45 - 59 mL/min/1.73m2 Moderately to severely decreased 30 - 44 mL/min/1.73m2 Severely decreased 15 - 29 mL/min/1.73m2 Kidney Failure < 15 mL/min/1.73m2 *Relative to young adult level Estimated glomerular filtration rate is determined by the 2020 CKD-EPI equation recommended by the National Kidney Foundation (A Unifying Approach to GFR Estimation: Recommendations of the NKF-ASK Task Force on Reassessing the Inclusion of Race in Diagnosing Kidney Disease, JASN 2020). The CKD-EPI equation should not be used for patients with unstable renal function and has not been validated in children and those over 70. Current interpretive data was last reviewed 2021. Blood 01/28/2025 4:37 AM CDT 01/28/2025 4:45 AM CDT Kasia Maldonado MD LAB BLOOD ORDERABLES Final Res ult Performing Organization Address [facility]/ZIP Co de Phone Number AYAKA HARRIS [address] Department of [address]fon [place], [place] [id number] * (ABNORMAL) CBC without differential (01/28/2025 4:37 AM CDT) WBC 17.78(H) 3.80 - 9.90 K/cumm Hgb 8.8(L) 13.0 - 17.5 g/dL [facility] Hct 26.6(L) 38.9 - 50.3 % [facility] Plt 126(L) 150 - 400 K/cumm [facility] CH MPV 9.8 9.1 - 12.3 fL [facility] RBC 2.81(L) 4.30 - 5.80 M/cumm [facility] CH MCV 94.7 81.3 - 96.4 fL [facility] MCH 31.3 27.1 - 33.3 pg [facility] MCHC 33.1 32.3 - 35.7 g/dL [facility] RDW CV 14.3 11.1 - 14.9 % [facility] CH RDW SD 49.4(H) 35.7 - 48.1 fL [facility] NRBC abs 0.00 0.00 - 0.01 K/cumm [facility] Blood 01/28/2025 4:37 AM CDT 01/28/2025 4:45 AM CDT Kasia Maldonado MD LAB BLOOD ORDERABLES Final Res ult Performing Organization Address [facility] Co de Phone Number [facility] [address] [place] [address] * Magnesium (01/28/2025 4:37 AM CDT) [facility] Magnesium 2.1 1.4 - 2.5 mg/dL Blood 01/28/2025 4:37 AM CDT 01/28/2025 4:45 AM CDT Kasia Maldonado MD LAB BLOOD ORDERABLES Final Res ult Performing Organization Address [facility] de Phone Number [facility] [address] [address] [place] [address] * (ABNORMAL) Basic metabolic panel (01/28/2025 4:37 AM CDT) Pathologist [facility] Sodium 136 135 - 145 mmol/L Potassium, pl 3.9 3.3 - 4.9 mmol/L [facility] Chloride 102 97 - 110 mmol/L [facility] CO2 23 22 - 32 mmol/L [facility] Anion gap 11 2 - 15 mmol/L [facility] BUN 22 6 - 25 mg/dL [facility] Creatinine 0.87 0.80 - 1.30 mg/dL [facility] Glucose 114 70 - 199 mg/dL [facility] Comment: Interpretive Data Fasting glucose >/= 126 mg/dl is diagnostic for diabetes. Fasting is defined as no caloric intake for at least 8 hours. Fasting glucose between 100 mg/dl to 125 mg/dl is diagnostic of prediabetes. In a patient with classic symptoms of hyperglycemia or hyperglycemic crisis, a random glucose >/= 200 mg/dl is diagnostic for diabetes. In the absence of unequivocal hyperglycemia, results should be confirmed by repeat testing. The classification and Diagnosis of Diabetes Diabetes Care 2021; 46: S19-S40. Current interpretive data was last revised 2022. Calcium 8.1(L) 8.5 - 10.3 mg/dL [facility] Blood 01/28/2025 4:37 AM CDT 01/28/2025 4:45 AM CDT Kasia Maldonado MD LAB BLOOD ORDERABLES Final Res ult Performing Organization Address City/[facility]/ZIP Co de Phone Number [facility] [address] [address] [place] [address] * POCT glucose (01/28/2025 4:34 AM CDT) Glucose, POC 120 70 - 199 mg/dL POC Performer [id number] [facility] Blood 01/28/2025 4:34 AM CDT 01/28/2025 4:34 AM CDT Kasia Maldonado MD LAB POCT ORDERABLES - DEVICE F inal Result AYAKA [address] [address] [place] [address] * POCT glucose (01/28/2025 3:34 AM CDT) Glucose, POC 122 70 - 199 mg/dL POC Performer [id number] [facility] Blood 01/28/2025 3:34 AM CDT 01/28/2025 3:34 AM CDT Kasia Maldonado MD LAB POCT ORDERABLES - DEVICE F inal Result Performing Organization Address [facility] Co de Phone Number AYAKA HARRIS [address] [address] [facility] [place] [address] * POCT glucose (01/28/2025 2:36 AM CDT) Glucose, POC 98 70 - 199 mg/dL POC Performer [id number] [facility] Blood 01/28/2025 2:36 AM CDT 01/28/2025 2:36 AM CDT Kasia Maldonado MD LAB POCT ORDERABLES - DEVICE F inal Result Performing Organization Address [facility] de Phone Number AYAKA HARRIS [address] [address] [facility] [place] [address] * POCT glucose (01/28/2025 1:23 AM CDT) Glucose, POC 81 70 - 199 mg/dL POC Performer [id number] [facility] Blood 01/28/2025 1:23 AM CDT 01/28/2025 1:23 AM CDT Kasia Maldonado MD LAB POCT ORDERABLES - DEVICE F inal Result Performing Organization Address [facility] Co de Phone Number AYAKA HARRIS [address] [address] [facility] [place] [address] * POCT glucose (01/28/2025 12:15 AM CDT) Glucose, POC 103 70 - 199 mg/dL POC Performer [id number] [facility] Blood 01/28/2025 12:1 5 AM CDT 01/28/2025 12:15 AM CDT Kasia Maldonado MD LAB POCT ORDERABLES - DEVICE F inal Result Performing Organization Address [facility] Co de Phone Number AYAKA HARRIS [address] [address] [facility] [place] [address] * POCT glucose (01/27/2025 11:22 PM CDT) Glucose, POC 121 70 - 199 mg/dL POC Performer [id number] [facility] Blood 01/27/2025 11:2 2 PM CDT 01/27/2025 11:22 PM CDT Kasia Maldonado MD LAB POCT ORDERABLES - DEVICE F inal Result Performing Organization Address [facility] de Phone Number AYAKA HARRIS [address] [address] [facility] [place] [address] * POCT glucose (01/27/2025 10:19 PM CDT) Glucose, POC 129 70 - 199 mg/dL POC Performer [id number] [facility] Blood 01/27/2025 10:1 9 PM CDT 01/27/2025 10:19 PM CDT Kasia Maldonado MD LAB POCT ORDERABLES - DEVICE F inal Result Performing Organization Address [facility] de Phone Number AYAKA HARRIS [address] [address] [facility] [place] [address] * POCT glucose (01/27/2025 9:15 PM CDT) Glucose, POC 87 70 - 199 mg/dL POC Performer [id number] [facility] Blood 01/27/2025 9:15 PM CDT 01/27/2025 9:15 PM CDT Kasia Maldonado MD LAB POCT ORDERABLES - DEVICE F inal Result Performing Organization Address [facility] Co de Phone Number AYAKA HARRIS [address] [address] [place] [address] * POCT glucose (01/27/2025 8:04 PM CDT) Glucose, POC 116 70 - 199 mg/dL POC Performer [id number] [facility] Blood 01/27/2025 8:04 PM CDT 01/27/2025 8:04 PM CDT Kasia Maldonado MD LAB POCT ORDERABLES - DEVICE F inal Result Performing Organization Address [facility]/ZIP Co de Phone Number AYAKA HARRIS [address] [address] [place] [address] * POCT glucose (01/27/2025 7:12 PM CDT) Pathologist [facility] Glucose, POC 138 70 - 199 mg/dL POC Performer [id number] [facility] Blood 01/27/2025 7:12 PM CDT 01/27/2025 7:12 PM CDT Kasia Maldonado MD LAB POCT ORDERABLES - DEVICE F inal Result Performing Organization Address City/[facility]/ZIP Co de Phone Number AYAKA HARRIS [address] [address] [place] [address] * eGFR (01/27/2025 6:53 PM CDT) eGFR 80 >=60 mL/min/1. 73 m2 Comment: Interpretive Data Reference Interval Normal >/= 90 mL/min/1.73m2 Mildly decreased* 60 - 89 mL/min/1.73m2 Mildly to moderately decreased 45 - 59 mL/min/1.73m2 Moderately to severely decreased 30 - 44 mL/min/1.73m2 Severely decreased 15 - 29 mL/min/1.73m2 Kidney Failure < 15 mL/min/1.73m2 *Relative to young adult level Estimated glomerular filtration rate is determined by the 2020 CKD-EPI equation recommended by the National Kidney Foundation (A Unifying Approach to GFR Estimation: Recommendations of the NKF-ASK Task Force on Reassessing the Inclusion of Race in Diagnosing Kidney Disease, JASN 202). The CKD-EPI equation should not be used for patients with unstable renal function and has not been validated in children and those over 70. Current interpretive data was last reviewed 2021. Blood 01/27/2025 6:53 PM CDT 01/27/2025 7:02 PM CDT Kasia Maldonado MD LAB BLOOD ORDERABLES Final Res ult [facility] [address] [address] Department [place] [address] * (ABNORMAL) CBC without differential (01/27/2025 6:53 PM CDT) WBC 17.49(H) 3.80 - 9.90 K/cumm Hgb 9.1(L) 13.0 - 17.5 g/dL [facility] Hct 27.3(L) 38.9 - 50.3 % [facility] Plt 128(L) 150 - 400 K/cumm [facility] MPV 9.5 9.1 - 12.3 fL [facility] RBC 2.89(L) 4.30 - 5.80 M/cumm [facility] MCV 94.5 81.3 - 96.4 fL [facility] MCH 31.5 27.1 - 33.3 pg [facility] MCHC 33.3 32.3 - 35.7 g/dL [facility] RDW CV 14.2 11.1 - 14.9 % [facility] RDW SD 48.1 35.7 - 48.1 fL [facility] NRBC abs 0.00 0.00 - 0.01 K/cumm [facility] Blood 01/27/2025 6:53 PM CDT 01/27/2025 6:59 PM CDT Kasia Maldonado MD LAB BLOOD ORDERABLES Final Res ult AYAKA HARRIS [address] [address] Department [place] [address] * (ABNORMAL) Basic metabolic panel (01/27/2025 6:53 PM CDT) Sodium 138 135 - 145 mmol/L Potassium, pl 3.2(L) 3.3 - 4.9 mmol/L [facility] Chloride 103 97 - 110 mmol/L [facility] CO2 22 22 - 32 mmol/L [facility] Anion gap 13 2 - 15 mmol/L [facility] BUN 21 6 - 25 mg/dL [facility] Creatinine 0.99 0.80 - 1.30 mg/dL [facility] Glucose 118 70 - 199 mg/dL [facility] Comment: Interpretive Data Fasting glucose >/= 126 mg/dl is diagnostic for diabetes. Fasting is defined as no caloric intake for at least 8 hours. Fasting glucose between 100 mg/dl to 125 mg/dl is diagnostic of prediabetes. In a patient with classic symptoms of hyperglycemia or hyperglycemic crisis, a random glucose >/= 200 mg/dl is diagnostic for diabetes. In the absence of unequivocal hyperglycemia, results should be confirmed by repeat testing. The classification and Diagnosis of Diabetes Diabetes Care 2021; 46: S19-S40. Current interpretive data was last revised 2022. Calcium 8.4(L) 8.5 - 10.3 mg/dL [facility] Blood 01/27/2025 6:53 PM CDT 01/27/2025 6:59 PM CDT Kasia Maldonado MD LAB BLOOD ORDERABLES Final Res ult AYAKA HARRIS [address] [address] Department [place] [address] * POCT glucose (01/27/2025 6:04 PM CDT) Pathologist [facility] Glucose, POC 117 70 - 199 mg/dL POC Performer [id number] [facility] Blood 01/27/2025 6:04 PM CDT 01/27/2025 6:04 PM CDT us Kasia Maldonado MD LAB POCT ORDERABLES - DEVICE F inal Result AYAKA [address] Department [place] [address] * Critical Care (01/27/2025 5:45 PM CDT) Narrative Hollis Phillips MD - 01/27/2025 5:45 PM CDT Hollis Phillips MD 01/27/2025 7:08 PM Critical Care Performed by: Hollis Phillips MD Authorized by: Hollis Phillips MD CRITICAL CARE: Team: LUKE Shift: AM Level of Billing: Critical Care My time spent with this patient was 30 minutes: Critical Provider Statement: I have seen and examined the patient on this day of service. I have reviewed and confirmed the history, physical exam, laboratory and radiologic data as documented in the signed ICU note. I have reviewed and discussed my treatment plan with the ICU team and other medical/bus info consultant staff, making frequent assessments and decisions regarding this patient's complex medical care. Critical Care time was exclusive of time spent performing separately billed procedures, treating other patients, and teaching. This time was in addition to and separate from critical care provided by other practitioners in my group on this day of service. Critical Care was necessary to treat or prevent imminent or life-threatening deterioration of the following conditions: Acute pain/acute postoperative pain Cardiogenic shock Acute electrolyte derangement and Hypo- or Hyperglycemia This time was spent by me doing the following: Serial bedside patient exams and Serial laboratory checks Acute pain control Initiation/active titration of inotropic medications Glycemic control I spent time reviewing and interpreting data from bedside monitors, laboratory results, and imaging, I spent time discussing the management of this critically ill patient with consultants and the medical staff and I spent time documenting in the medical record Hollis Phillips MD IN CLINIC/BEDSIDE ORDERABLES Final Result * POCT glucose (01/27/2025 4:05 PM CDT) Glucose, POC 166 70 - 199 mg/dL POC Performer [id number] AYAKA HARRIS Blood 01/27/2025 4:05 PM CDT 01/27/2025 4:05 PM CDT Kasia Maldonado MD LAB POCT ORDERABLES - DEVICE F inal Result Performing Organization Address [facility] Co de Phone Number AYAKA HARRIS [address] [address] [facility] [place] [address] * POCT glucose (01/27/2025 2:02 PM CDT) Glucose, POC 101 70 - 199 mg/dL POC Performer [id number] [facility] Blood 01/27/2025 2:02 PM CDT 01/27/2025 2:02 PM CDT Kasia Maldonado MD LAB POCT ORDERABLES - DEVICE F inal Result Performing Organization Address [facility] Co de Phone Number AYAKA HARRIS [address] [address] [facility] [place] [address] * POCT glucose (01/27/2025 12:17 PM CDT) Glucose, POC 83 70 - 199 mg/dL POC Performer [id number] [facility] Blood 01/27/2025 12:1 7 PM CDT 01/27/2025 12:17 PM CDT Kasia Maldonado MD LAB POCT ORDERABLES - DEVICE F inal Result Performing Organization Address [facility] Co de Phone Number AYAKA HARRIS [address] [address] [facility] [place] [address] * POCT glucose (01/27/2025 10:58 AM CDT) Glucose, POC 132 70 - 199 mg/dL POC Performer [id number] [facility] Blood 01/27/2025 10:5 8 AM CDT 01/27/2025 10:58 AM CDT Kasia Maldonado MD LAB POCT ORDERABLES - DEVICE F inal Result Performing Organization Address [facility] de Phone Number AYAKA HARRIS [address] [address] [facility] [place] [address] * ECG 12 lead (01/27/2025 10:50 AM CDT) 01/27/2025 10:5 0 AM CDT Narrative [facility] - 01/27/2025 11:39 AM CDT Vent Rate: 99 bpm RR Interval: 602 msec [place] Interval: 163 msec QRS Duration: 93 msec QT Interval: 356 msec QTC Interval: 412 msec P-R-T [place]: 53 - -7 - -1 degrees IMPRESSION: SINUS RHYTHM WITH artifact BORDERLINE ECG Electronically Signed By: Dr. Rivas Lehman [facility] Kasia Maldonado MD ECG ORDERABLES Final Result Performing Organization Address [facility] Phone Number [facility] [employer] [facility] * POCT glucose (01/27/2025 7:40 AM CDT) Glucose, POC 111 70 - 199 mg/dL POC Performer [id number] [facility] Blood 01/27/2025 7:40 AM CDT 01/27/2025 7:40 AM CDT Kasia Maldonado MD LAB POCT ORDERABLES - DEVICE F inal Result Performing Organization Address [facility] de Phone Number AYAKA HARRIS [address] [address] [place] [address] * POCT glucose (01/27/2025 6:27 AM CDT) Glucose, POC 127 70 - 199 mg/dL POC Performer [id number] [facility] Blood 01/27/2025 6:27 AM CDT 01/27/2025 6:27 AM CDT Kasia Maldonado MD LAB POCT ORDERABLES - DEVICE F inal Result Performing Organization Address City/[facility]/ZIP Co de Phone Number AYAKA HARRIS [address] [address] Department [place] [address] * POCT glucose (01/27/2025 5:16 AM CDT) Glucose, POC 126 70 - 199 mg/dL POC Performer [id number] AYAKA HARRIS Blood 01/27/2025 5:16 AM CDT 01/27/2025 5:16 AM CDT Kasia Maldonado MD LAB POCT ORDERABLES - DEVICE F inal Result Performing Organization Address [facility] Co de Phone Number AYAKA HARRIS [address] [address] Department [place] [address] * XR Chest 1 View - Portable - in AM (01/27/2025 4:40 AM CDT) Anatomical Region Laterality Modality Body, Chest N/A Computed Radiogr aphy 01/27/2025 9:01 AM CDT Impressions 01/27/2025 9:01 AM CDT Extubation. No failure or pneumothorax. Electronically signed by: Sunil Luna M.D. Narrative 01/27/2025 9:01 AM CDT EXAMINATION: XR CHEST 1 VIEW DATE: 01/27/2025 4:10 AM HISTORY: Cardiac surgery FINDINGS:Compared with the study of the previous day, the patient is extubated with removal of endotracheal and nasogastric tubes. Left thoracostomy tube mediastinal drain and [place] catheter remain in place. Mild cardiomegaly is seen without failure. No pneumothorax. Procedure Note Sunil Luna MD - 01/27/2025 EXAMINATION: XR CHEST 1 VIEW DATE: 01/27/2025 4:10 AM HISTORY: Cardiac surgery FINDINGS:Compared with the study of the previous day, the patient is extubated with removal of endotracheal and nasogastric tubes. Left thoracostomy tube mediastinal drain and [place] catheter remain in place. Mild cardiomegaly is seen without failure. No pneumothorax. IMPRESSION: Extubation. No failure or pneumothorax. Electronically signed by: Sunil Luna M.D. Kasia Maldonado MD IMG XR PROCEDURES Final Result * Oxyhemoglobin, central venous (01/27/2025 4:05 AM CDT) Oxyhemoglobin, CV 95.5 % Comment: Interpretive Data No reference range established. Current interpretive data was last revised 2020. Blood 01/27/2025 4:05 AM CDT 01/27/2025 4:09 AM CDT Kasia Maldonado MD LAB BLOOD ORDERABLES Final Res ult AYAKA [address] [address] Department [place] [address] * eGFR (01/27/2025 4:05 AM CDT) eGFR >90 >=60 mL/min/1. 73 m2 Comment: Interpretive Data Reference Interval Normal >/= 90 mL/min/1.73m2 Mildly decreased* 60 - 89 mL/min/1.73m2 Mildly to moderately decreased 45 - 59 mL/min/1.73m2 Moderately to severely decreased 30 - 44 mL/min/1.73m2 Severely decreased 15 - 29 mL/min/1.73m2 Kidney Failure < 15 mL/min/1.73m2 *Relative to young adult level Estimated glomerular filtration rate is determined by the 2020 CKD-EPI equation recommended by the National Kidney Foundation (A Unifying Approach to GFR Estimation: Recommendations of the NKF-ASK Task Force on Reassessing the Inclusion of Race in Diagnosing Kidney Disease, JASN 2020). The CKD-EPI equation should not be used for patients with unstable renal function and has not been validated in children and those over 70. Current interpretive data was last reviewed 2021. Blood 01/27/2025 4:05 AM CDT 01/27/2025 4:10 AM CDT Kasia Maldonado MD LAB BLOOD ORDERABLES Final Res ult [facility] [address] [address] Department [place] [address] * (ABNORMAL) Differential, auto (01/27/2025 4:05 AM CDT) Neutrophil abs 12.90(H) 1.50 - 6.50 K/cumm Imm gran abs 0.10 0.00 - 0.10 K/cumm [facility] Lymphocyte abs 0.80 0.80 - 3.30 K/cumm [facility] Monocyte abs 1.45(H) 0.20 - 0.80 K/cumm [facility] Eosinophil abs 0.00 0.00 - 0.50 K/cumm [facility] Basophil abs 0.03 0.00 - 0.10 K/cumm [facility] Neutrophil pct 84.4 % [facility] Comment: Interpretive Data Percent cell count reference ranges are not reported, since discordance with absolute values may lead to misinterpretation of CBC data. Current Interpretive Data was last revised on 2018. Imm gran pct 0.7 % [facility] Comment: Interpretive Data Percent cell count reference ranges are not reported, since discordance with absolute values may lead to misinterpretation of CBC data. Current Interpretive Data was last revised on 2018. Lymphocyte pct 5.2 % [facility] Comment: Interpretive Data Percent cell count reference ranges are not reported, since discordance with absolute values may lead to misinterpretation of CBC data. Current Interpretive Data was last revised on 2018. Monocyte pct 9.5 % [facility] Comment: Interpretive Data Percent cell count reference ranges are not reported, since discordance with absolute values may lead to misinterpretation of CBC data. Current Interpretive Data was last revised on 2018. Eosinophil pct 0.0 % [facility] Comment: Interpretive Data Percent cell count reference ranges are not reported, since discordance with absolute values may lead to misinterpretation of CBC data. Current Interpretive Data was last revised on 2018. Basophil pct 0.2 % [facility] Comment: Interpretive Data Percent cell count reference ranges are not reported, since discordance with absolute values may lead to misinterpretation of CBC data. Current Interpretive Data was last revised on 2018. Blood 01/27/2025 4:05 AM CDT 01/27/2025 4:10 AM CDT Kasia Maldonado MD LAB BLOOD ORDERABLES Final Res ult Performing Organization Address City/[facility]/ZIP Co de Phone Number AYAKA HARRIS [address] [address] [place] [address] * (ABNORMAL) CBC with auto differential (01/27/2025 4:05 AM CDT) WBC 15.28(H) 3.80 - 9.90 K/cumm Hgb 9.2(L) 13.0 - 17.5 g/dL [facility] Hct 27.6(L) 38.9 - 50.3 % [facility] Plt 139(L) 150 - 400 K/cumm [facility] MPV 9.6 9.1 - 12.3 fL [facility] RBC 2.88(L) 4.30 - 5.80 M/cumm [facility] MCV 95.8 81.3 - 96.4 fL [facility] MCH 31.9 27.1 - 33.3 pg [facility] MCHC 33.3 32.3 - 35.7 g/dL [facility] RDW CV 13.7 11.1 - 14.9 % [facility] RDW SD 48.3(H) 35.7 - 48.1 fL [facility] NRBC abs 0.00 0.00 - 0.01 K/cumm [facility] Blood 01/27/2025 4:05 AM CDT 01/27/2025 4:10 AM CDT Kasia Maldonado MD LAB BLOOD ORDERABLES Final Res ult Performing Organization Address City/[facility]/ZIP Co de Phone Number AYAKA [address] [place] [address] * (ABNORMAL) Magnesium (01/27/2025 4:05 AM CDT) Magnesium 2.8(H) 1.4 - 2.5 mg/dL Blood 01/27/2025 4:05 AM CDT 01/27/2025 4:10 AM CDT Kasia Maldonado MD LAB BLOOD ORDERABLES Final Res ult AYAKA HARRIS [address] [address] Department [place] [address] * (ABNORMAL) Basic metabolic panel (01/27/2025 4:05 AM CDT) Sodium 140 135 - 145 mmol/L Potassium, pl 4.0 3.3 - 4.9 mmol/L [facility] Chloride 108 97 - 110 mmol/L [facility] CO2 22 22 - 32 mmol/L [facility] Anion gap 10 2 - 15 mmol/L [facility] BUN 19 6 - 25 mg/dL [facility] Creatinine 0.75(L) 0.80 - 1.30 mg/dL [facility] Glucose 114 70 - 199 mg/dL [facility] Comment: Interpretive Data Fasting glucose >/= 126 mg/dl is diagnostic for diabetes. Fasting is defined as no caloric intake for at least 8 hours. Fasting glucose between 100 mg/dl to 125 mg/dl is diagnostic of prediabetes. In a patient with classic symptoms of hyperglycemia or hyperglycemic crisis, a random glucose >/= 200 mg/dl is diagnostic for diabetes. In the absence of unequivocal hyperglycemia, results should be confirmed by repeat testing. The classification and Diagnosis of Diabetes Diabetes Care 2021; 46: S19-S40. Current interpretive data was last revised 2022. Calcium 8.2(L) 8.5 - 10.3 mg/dL [facility] Blood 01/27/2025 4:05 AM CDT 01/27/2025 4:10 AM CDT Kasia Maldonado MD LAB BLOOD ORDERABLES Final Res ult AYAKA HARRIS [address] [address] Department [place] [address] * POCT glucose (01/27/2025 4:03 AM CDT) Glucose, POC 122 70 - 199 mg/dL POC Performer [id number] [facility] Blood 01/27/2025 4:03 AM CDT 01/27/2025 4:03 AM CDT Kasia Maldonado MD LAB POCT ORDERABLES - DEVICE F inal Result Performing Organization Address [facility] Co de Phone Number AYAKA HARRIS [address] [address] [facility] [place] [address] * POCT glucose (01/27/2025 3:02 AM CDT) Glucose, POC 112 70 - 199 mg/dL POC Performer [id number] CERNER [facility] Blood 01/27/2025 3:02 AM CDT 01/27/2025 3:02 AM CDT Kasia Maldonado MD LAB POCT ORDERABLES - DEVICE F inal Result Performing Organization Address [facility] Co de Phone Number WOODROWBENITA HARRIS [address] [address] [facility] [place] [address] * POCT glucose (01/27/2025 1:57 AM CDT) Glucose, POC 127 70 - 199 mg/dL POC Performer [id number] CERNER CH Blood 01/27/2025 1:57 AM CDT 01/27/2025 1:57 AM CDT Kasia Maldonado MD LAB POCT ORDERABLES - DEVICE F inal Result Performing Organization Address [facility] Co de Phone Number AYAKA HARRIS [address] [address] [facility] [place] [address] * POCT glucose (01/27/2025 12:50 AM CDT) Glucose, POC 146 70 - 199 mg/dL POC Performer [id number] AYAKA Blood 01/27/2025 12:5 0 AM CDT 01/27/2025 12:50 AM CDT Result [facility] Kasia Maldonado MD LAB POCT ORDERABLES - DEVICE F inal Result Performing Organization Address [facility] Co de Phone Number WOODROWBENITA HARRIS [address] [address] [facility] [address] [place], [place] [phone] * Potassium, whole blood (01/27/2025 12:44 AM CDT) Potassium, bld 3.5 3.3 - 4.9 mmol/L Comment: Interpretive Data This method is not able to assess for hemolysis, which may falsely increase potassium concentrations. If further testing is needed to evaluate this result, consider in-laboratory plasma potassium. Current Interpretive Data was last revised on 2022. Blood 01/27/2025 12:4 4 AM CDT 01/27/2025 12:54 AM CDT Kasia Maldonado MD LAB BLOOD ORDERABLES Final Res ult Performing Organization Address [facility] Co de Phone Number AYAKA HARRIS [address] [place] [address] * (ABNORMAL) Hemoglobin and hematocrit (01/27/2025 12:44 AM CDT) Hgb 9.1(L) 13.0 - 17.5 g/dL Hct 27.3(L) 38.9 - 50.3 % AYAKA Blood 01/27/2025 12:4 4 AM CDT 01/27/2025 12:54 AM CDT Result [facility] Kasia Maldonado MD LAB BLOOD ORDERABLES Final Res ult Performing Organization Address City/[facility]/ZIP Co de Phone Number WOODROWBENITA HARRIS [address] [place] [address] * (ABNORMAL) Blood gas, arterial (01/27/2025 12:44 AM CDT) pH, Art 7.36 7.35 - 7.45 PCO2, Arterial 40 35 - 45 mmHg CERNER CH PO2, Arterial 93 83 - 108 mmHg CERNER CH HCO3 Art (Calculated) 22 20 - 30 mmol/L CERNER CH BE, art -3 mmol/L CERNER CH Comment: Interpretive Data No Reference Range Established Current Interpretive Data was last revised on 2017 O2 Sat Art (Measured) 96(H) 90 - 95 % CERNER CH Blood 01/27/2025 12:4 4 AM CDT 01/27/2025 12:53 AM CDT Kasia Maldonado MD LAB BLOOD ORDERABLES Final Res ult Performing Organization Address [facility]/ZIP Co de Phone Number AYAKA HARRIS [address] [address] [place] [address] * POCT glucose (01/26/2025 11:58 PM CDT) Glucose, POC 135 70 - 199 mg/dL POC Performer [id number] CERNER CH Blood 01/26/2025 11:5 8 PM CDT 01/26/2025 11:58 PM CDT Kasia Maldonado MD LAB POCT ORDERABLES - DEVICE F inal Result Performing Organization Address City/[facility]/ZIP Co de Phone Number WOODROWBENITA HARRIS [address] [address] [place] [address] * POCT glucose (01/26/2025 10:45 PM CDT) Glucose, POC 128 70 - 199 mg/dL POC Performer [id number] CERNER CH Blood 01/26/2025 10:4 5 PM CDT 01/26/2025 10:45 PM CDT Kasia Maldonado MD LAB POCT ORDERABLES - DEVICE F inal Result Performing Organization Address [facility] Co de Phone Number AYAKA HARRIS [address] [address] [facility] [place] [address] * POCT glucose (01/26/2025 9:50 PM CDT) Glucose, POC 120 70 - 199 mg/dL POC Performer [id number] [facility] Blood 01/26/2025 9:50 PM CDT 01/26/2025 9:50 PM CDT Kasia Maldonado MD LAB POCT ORDERABLES - DEVICE F inal Result Performing Organization Address [facility] de Phone Number AYAKA HARRIS [address] [address] [facility] [place] [address] * POCT glucose (01/26/2025 8:52 PM CDT) Glucose, POC 147 70 - 199 mg/dL POC Performer [id number] [facility] Blood 01/26/2025 8:52 PM CDT 01/26/2025 8:52 PM CDT Kasia Maldonado MD LAB POCT ORDERABLES - DEVICE F inal Result Performing Organization Address [facility] de Phone Number WOODROWBENITA HARRIS [address] [address] [place] [address] * Calcium, ionized, whole blood (01/26/2025 8:02 PM CDT) Ca, ionized, bld 4.95 4.50 - 5.10 mg/dL Blood 01/26/2025 8:02 PM CDT 01/26/2025 8:16 PM CDT Kasia Maldonado MD LAB BLOOD ORDERABLES Final Res ult Performing Organization Address [facility] Co de Phone Number AYAKA HARRIS [address] [facility] [place] [address] * eGFR (01/26/2025 8:02 PM CDT) eGFR >90 >=60 mL/min/1. 73 m2 Comment: Interpretive Data Reference Interval Normal >/= 90 mL/min/1.73m2 Mildly decreased* 60 - 89 mL/min/1.73m2 Mildly to moderately decreased 45 - 59 mL/min/1.73m2 Moderately to severely decreased 30 - 44 mL/min/1.73m2 Severely decreased 15 - 29 mL/min/1.73m2 Kidney Failure < 15 mL/min/1.73m2 *Relative to young adult level Estimated glomerular filtration rate is determined by the 2020 CKD-EPI equation recommended by the National Kidney Foundation (A Unifying Approach to GFR Estimation: Recommendations of the NKF-ASK Task Force on Reassessing the Inclusion of Race in Diagnosing Kidney Disease, JASN 2020). The CKD-EPI equation should not be used for patients with unstable renal function and has not been validated in children and those over 70. Current interpretive data was last reviewed 2021. Blood 01/26/2025 8:02 PM CDT 01/26/2025 8:14 PM CDT Kasia Maldonado MD LAB BLOOD ORDERABLES Final Res ult AYAKA [address] [facility] Department [place] [address] * aPTT (01/26/2025 8:02 PM CDT) aPTT 33 28 - 38 sec Comment: Interpretive Data Heparin therapeutic range: 66.0 - 100.0 seconds. Range based on correlation with therapeutic heparin activity range of 0.3 - 0.7 Units/mL. Current interpretive data was last revised on 2023. Blood 01/26/2025 8:02 PM CDT 01/26/2025 8:12 PM CDT Kasia Maldonado MD LAB BLOOD ORDERABLES Final Res ult Performing Organization Address City/[facility] de Phone Number AYAKA [phone] [address] [place] [address] * Protime-INR (01/26/2025 8:02 PM CDT) Pathologist [facility] PT 12.1 9.7 - 13.0 sec INR 1.12 0.90 - 1.20 AYAKA Comment: Interpretive data Oral anticoagulant therapeutic ranges: Venous thromboembolism prophylaxis or treatment: 2.0-3.0 CARDIOLOGY Standard range: 2.0-3.0 High-intensity range: 2.5-3.5 Refer to indication-specific guidelines for appropriate target ranges for prosthetic heart valve replacement. Current interpretive data was last revised on 2019. Blood 01/26/2025 8:02 PM CDT 01/26/2025 8:12 PM CDT Kasia Maldonado MD LAB BLOOD ORDERABLES Final Res ult Performing Organization Address [facility] de Phone Number AYAKA HARRIS [address] [place] [address] * Fibrinogen (01/26/2025 8:02 PM CDT) [facility] Fibrinogen 248 170 - 400 mg/dL Blood 01/26/2025 8:02 PM CDT 01/26/2025 8:12 PM CDT Hollis Phillips MD LAB BLOOD ORDERAB LES Final Result Performing Organization Address [facility] Co de Phone Number AYAKA [address] [address] [place] [address] * (ABNORMAL) CBC without differential (01/26/2025 8:02 PM CDT) Pathologist [facility] WBC 13.67(H) 3.80 - 9.90 K/cumm Hgb 9.6(L) 13.0 - 17.5 g/dL [facility] Hct 28.4(L) 38.9 - 50.3 % [facility] Plt 132(L) 150 - 400 K/cumm [facility] MPV 9.1 9.1 - 12.3 fL [facility] RBC 2.98(L) 4.30 - 5.80 M/cumm [facility] MCV 95.3 81.3 - 96.4 fL [facility] MCH 32.2 27.1 - 33.3 pg [facility] MCHC 33.8 32.3 - 35.7 g/dL [facility] RDW CV 13.4 11.1 - 14.9 % [facility] RDW SD 47.1 35.7 - 48.1 fL [facility] NRBC abs 0.00 0.00 - 0.01 K/cumm [facility] Blood 01/26/2025 8:02 PM CDT 01/26/2025 8:14 PM CDT Kasia Maldonado MD LAB BLOOD ORDERABLES Final Res ult Performing Organization Address City/[facility]/ZIP Co de Phone Number [facility] [address] [employer] [place], [place] [phone] * Type and screen (01/26/2025 8:02 PM CDT) ABO Rh A Positive Blood 01/26/2025 8:02 PM CDT 01/26/2025 8:18 PM CDT Narrative [facility] - 01/26/2025 8:47 PM CDT Has the patient had Daratumumab or Isatuximab in the past 6 months?->Unknown Jordan Escalera NP LAB BLOOD BANK TEST ORDERAB LES Final Result [facility] [address] [place] [address] * Magnesium (01/26/2025 8:02 PM CDT) Magnesium 2.1 1.4 - 2.5 mg/dL Blood 01/26/2025 8:02 PM CDT 01/26/2025 8:14 PM CDT Kasia Maldonado MD LAB BLOOD ORDERABLES Final Res ult Performing Organization Address [facility] Co de Phone Number AYAKA HARRIS [address] Department [place] [address] * (ABNORMAL) Blood gas, arterial (01/26/2025 8:02 PM CDT) pH, Art 7.36 7.35 - 7.45 PCO2, Arterial 41 35 - 45 mmHg CERNER CH PO2, Arterial 117(H) 83 - 108 mmHg CERNER CH HCO3 Art (Calculated) 23 20 - 30 mmol/L CERNER CH BE, art -2 mmol/L CERNER CH Comment: Interpretive Data No Reference Range Established Current Interpretive Data was last revised on 2017 O2 Sat Art (Measured) 98(H) 90 - 95 % CERNER CH Blood 01/26/2025 8:02 PM CDT 01/26/2025 8:15 PM CDT Kasia Maldonado MD LAB BLOOD ORDERABLES Final Res ult Performing Organization Address [facility] Co de Phone Number AYAKA HARRIS [address] [address] Department [place] [address] * (ABNORMAL) Basic metabolic panel (01/26/2025 8:02 PM CDT) Sodium 142 135 - 145 mmol/L Potassium, pl 3.9 3.3 - 4.9 mmol/L CERNER CH Chloride 111(H) 97 - 110 mmol/L CERNER CH CO2 22 22 - 32 mmol/L CERNER CH Anion gap 9 2 - 15 mmol/L CERNER CH BUN 16 6 - 25 mg/dL CERNER CH Creatinine 0.69(L) 0.80 - 1.30 mg/dL CERNER CH Glucose 136 70 - 199 mg/dL CERNER CH Comment: Interpretive Data Fasting glucose >/= 126 mg/dl is diagnostic for diabetes. Fasting is defined as no caloric intake for at least 8 hours. Fasting glucose between 100 mg/dl to 125 mg/dl is diagnostic of prediabetes. In a patient with classic symptoms of hyperglycemia or hyperglycemic crisis, a random glucose >/= 200 mg/dl is diagnostic for diabetes. In the absence of unequivocal hyperglycemia, results should be confirmed by repeat testing. The classification and Diagnosis of Diabetes Diabetes Care 2021; 46: S19-S40. Current interpretive data was last revised 2022. Calcium 8.6 8.5 - 10.3 mg/dL CERNER Blood 01/26/2025 8:02 PM CDT 01/26/2025 8:14 PM CDT Kasia Maldonado MD LAB BLOOD ORDERABLES Final Res ult Performing Organization Address [facility] Co de Phone Number AYAKA HARRIS [address] [address] [place] [address] * POCT glucose (01/26/2025 7:36 PM CDT) Glucose, POC 137 70 - 199 mg/dL POC Performer [id number] [facility] Blood 01/26/2025 7:36 PM CDT 01/26/2025 7:36 PM CDT Kasia Maldonado MD LAB POCT ORDERABLES - DEVICE F inal Result Performing Organization Address [facility] Co de Phone Number AYAKA HARRIS [address] [place] [address] * Transfuse RBC (01/26/2025 7:27 PM CDT) Blood Hollis Phillips MD BLOOD TRANSFUSION ORDERABLES Final Result Performing Organization Address [facility] Co de Phone Number AYAKA [address] [address] [place] [address] * POCT glucose (01/26/2025 6:28 PM CDT) Glucose, POC 155 70 - 199 mg/dL POC Performer [id number] [facility] Blood 01/26/2025 6:28 PM CDT 01/26/2025 6:28 PM CDT Kasia Maldonado MD LAB POCT ORDERABLES - DEVICE F inal Result Performing Organization Address [facility] de Phone Number AYAKA HARRIS [address] [place] [address] * Transfuse cryoprecipitate (pooled units) (01/26/2025 5:32 PM CDT) Blood Kasia Maldonado MD BLOOD TRANSFUSION ORDERABLES F inal Result Performing Organization Address [facility] Phone Number WOODROWB[place]ITA [address] [place] [address] * POCT glucose (01/26/2025 5:28 PM CDT) Pathologist [facility] Glucose, POC 153 70 - 199 mg/dL POC Performer [id number] [facility] Blood 01/26/2025 5:28 PM CDT 01/26/2025 5:28 PM CDT Kasia Maldonado MD LAB POCT ORDERABLES - DEVICE F inal Result Performing Organization Address [facility] Phone Number AYAKA [address] [place] [address] * Prepare RBC: 1 Units (01/26/2025 5:10 PM CDT) Product code [id number] Unit Number [id number] 2-H [facility] Product Blood Type APOS [facility] Dispense Status RETURNED [facility] Blood 01/26/2025 5:10 PM CDT Narrative [facility] - 01/28/2025 12:14 AM CDT Are special requirements needed? (All products are leukoreduced and CMV- safe)- >No Donor Source->[employer] Date required:-[id number] LRRBC # of [id number] Reasons:-Active bleeding, Hgb <8 g/dL} us Hollis Phillips MD BLOOD BANK [place] [address] [address] Department [place] [address] * XR Chest 1 View - Portable (01/26/2025 4:14 PM CDT) Anatomical Region Laterality Modality Body, Chest N/A Computed Radiogr aphy 01/26/2025 4:21 PM CDT Impressions 01/26/2025 4:21 PM CDT Findings as described above. Electronically signed by: Matthew More M.D. Narrative 01/26/2025 4:21 PM CDT EXAMINATION: XR CHEST 1 VIEW HISTORY: The patient is a 74-year-old male who has had cardiac surgery. Comparison made with the previous study dated 05/08/2025. TECHNIQUE: AP portable view of the chest. FINDINGS: Left thoracostomy tube and mediastinal drain in place. The tip of the [place] catheter is in the undivided main pulmonary artery. Endotracheal tube and nasogastric tubes are in satisfactory position. Heart not enlarged. No failure. No active infiltrate. Procedure Note Matthew More MD - 01/26/2025 EXAMINATION: XR CHEST 1 VIEW HISTORY: The patient is a 74-year-old male who has had cardiac surgery. Comparison made with the previous study dated 05/08/2025. TECHNIQUE: AP portable view of the chest. FINDINGS: Left thoracostomy tube and mediastinal drain in place. The tip of the [place] catheter is in the undivided main pulmonary artery. Endotracheal tube and nasogastric tubes are in satisfactory position. Heart not enlarged. No failure. No active infiltrate. IMPRESSION: Findings as described above. Electronically signed by: Matthew More M.D. Kasia Maldonado MD IMG XR PROCEDURES Final Result * eGFR (01/26/2025 4:12 PM CDT) eGFR >90 >=60 mL/min/1. 73 m2 Comment: Interpretive Data Reference Interval Normal >/= 90 mL/min/1.73m2 Mildly decreased* 60 - 89 mL/min/1.73m2 Mildly to moderately decreased 45 - 59 mL/min/1.73m2 Moderately to severely decreased 30 - 44 mL/min/1.73m2 Severely decreased 15 - 29 mL/min/1.73m2 Kidney Failure < 15 mL/min/1.73m2 *Relative to young adult level Estimated glomerular filtration rate is determined by the 2020 CKD-EPI equation recommended by the National Kidney Foundation (A Unifying Approach to GFR Estimation: Recommendations of the NKF-ASK Task Force on Reassessing the Inclusion of Race in Diagnosing Kidney Disease, JASN 2020). The CKD-EPI equation should not be used for patients with unstable renal function and has not been validated in children and those over 70. Current interpretive data was last reviewed 2021. Blood 01/26/2025 4:12 PM CDT 01/26/2025 4:18 PM CDT Kasia Maldonado MD LAB BLOOD ORDERABLES Final Res ult Performing Organization Address City/[facility] Co de Phone Number AYAKA KIMBERLY [address] [address] [place] [address] * aPTT (01/26/2025 4:12 PM CDT) aPTT 30 28 - 38 sec Comment: Interpretive Data Heparin therapeutic range: 66.0 - 100.0 seconds. Range based on correlation with therapeutic heparin activity range of 0.3 - 0.7 Units/mL. Current interpretive data was last revised on 2023. Blood 01/26/2025 4:12 PM CDT 01/26/2025 4:18 PM CDT Kasia Maldonado MD LAB BLOOD ORDERABLES Final Res ult Performing Organization Address City/[facility]/[place] Number [place] [address] [address] [employer] [place], [place] [phone] * (ABNORMAL) Protime-INR (01/26/2025 4:12 PM CDT) PT 13.4(H) 9.7 - 13.0 sec INR 1.24(H) 0.90 - 1.20 [facility] Comment: Interpretive data Oral anticoagulant therapeutic ranges: Venous thromboembolism prophylaxis or treatment: 2.0-3.0 CARDIOLOGY Standard range: 2.0-3.0 High-intensity range: 2.5-3.5 Refer to indication-specific guidelines for appropriate target ranges for prosthetic heart valve replacement. Current interpretive data was last revised on 2019. Blood 01/26/2025 4:12 PM CDT 01/26/2025 4:18 PM CDT us Kasia Maldonado MD LAB BLOOD ORDERABLES Final Res ult [facility] [address] Department [place] [address] * (ABNORMAL) CBC without differential (01/26/2025 4:12 PM CDT) WBC 19.20(H) 3.80 - 9.90 K/cumm Hgb 8.8(L) 13.0 - 17.5 g/dL [facility] Comment:Hemoglobin delta due to surgical procedure. This result has been called to Azucena Valle by [id number] on 01/26/2025 16:36:31. Hct 26.7(L) 38.9 - 50.3 % [facility] Plt 148(L) 150 - 400 K/cumm [facility] Comment:No clot detected in sample. MPV 9.3 9.1 - 12.3 fL [facility] RBC 2.78(L) 4.30 - 5.80 M/cumm [facility] MCV 96.0 81.3 - 96.4 fL [facility] MCH 31.7 27.1 - 33.3 pg [facility] MCHC 33.0 32.3 - 35.7 g/dL [facility] RDW CV 13.1 11.1 - 14.9 % [facility] RDW SD 46.0 35.7 - 48.1 fL [facility] NRBC abs 0.00 0.00 - 0.01 K/cumm [facility] Blood 01/26/2025 4:12 PM CDT 01/26/2025 4:18 PM CDT Kasia Maldonado MD LAB BLOOD ORDERABLES Final Res ult Performing Organization Address City/[facility] [place] [address] [address] [place] [address] * (ABNORMAL) Blood gas, arterial (01/26/2025 4:12 PM CDT) pH, Art 7.30(L) 7.35 - 7.45 PCO2, Arterial 41 35 - 45 mmHg [facility]ER [facility] PO2, Arterial 329(H) 83 - 108 mmHg [facility] HCO3 Art (Calculated) 20 20 - 30 mmol/L [facility] BE, art -6 mmol/L [facility] Comment: Interpretive Data No Reference Range Established Current Interpretive Data was last revised on 2017 O2 Sat Art (Measured) 98(H) 90 - 95 % [facility] Blood 01/26/2025 4:12 PM CDT 01/26/2025 4:16 PM CDT Kasia Maldonado MD LAB BLOOD ORDERABLES Final Res ult Performing Organization Address City/[facility] Co de Phone Number AYAKA HARRIS [address] [address] [place] [address] * (ABNORMAL) Basic metabolic panel (01/26/2025 4:12 PM CDT) Sodium 139 135 - 145 mmol/L Potassium, pl 4.0 3.3 - 4.9 mmol/L [facility] Chloride 109 97 - 110 mmol/L [facility] CO2 19(L) 22 - 32 mmol/L [facility] Anion gap 11 2 - 15 mmol/L [facility] BUN 17 6 - 25 mg/dL [facility] Creatinine 0.69(L) 0.80 - 1.30 mg/dL [facility] Glucose 147 70 - 199 mg/dL [facility] Comment: Interpretive Data Fasting glucose >/= 126 mg/dl is diagnostic for diabetes. Fasting is defined as no caloric intake for at least 8 hours. Fasting glucose between 100 mg/dl to 125 mg/dl is diagnostic of prediabetes. In a patient with classic symptoms of hyperglycemia or hyperglycemic crisis, a random glucose >/= 200 mg/dl is diagnostic for diabetes. In the absence of unequivocal hyperglycemia, results should be confirmed by repeat testing. The classification and Diagnosis of Diabetes Diabetes Care 2021; 46: S19-S40. Current interpretive data was last revised 2022. Calcium 7.6(L) 8.5 - 10.3 mg/dL [facility] Blood 01/26/2025 4:12 PM CDT 01/26/2025 4:18 PM CDT Kasia Maldonado MD LAB BLOOD ORDERABLES Final Res ult Performing Organization Address City/[facility]/ZIP Co de Phone Number AYAKA [address] [address] Department [place] [address] * Prepare cryoprecipitate (pooled units): 2 Units (01/26/2025 3:26 PM CDT) [facility] Product code [id number] Unit Number [id number] [facility] Product Blood Type OPOS [facility] Dispense Status PRESUMED TRANSFUSED [facility] Blood Venous blood specimen / Unknown 01/26/2025 3:26 PM CDT Narrative [facility] - 01/27/2025 9:45 AM CDT Other indication->BLEEDING Cryo # of [id number] Reasons:-Other (Specify)} Kasia Maldonado MD BLOOD BANK PRODUCT ORDERABLES Final Result Performing Organization Address City/[facility]/ZIP Co de Phone Number AYAKA [address] [address] Department of [address]fon [place], [place] [phone] * (ABNORMAL) POC Blood Gas and Chemistries, Arterial - (01/26/2025 3:21 PM CDT) pH, Art POC 7.27(L) 7.35 - 7.45 pCO2, Art POC 44 35 - 45 mmHg [facility] pO2, Art POC 346(H) 83 - 108 mmHg [facility] Na, POC 138 135 - 145 mmol/L [facility] K POC 4.0 3.3 - 4.9 mmol/L [facility] Comment: Interpretive Data This method is not able to assess for hemolysis, which may falsely increase potassium concentrations. If further testing is needed to evaluate this result, consider in-laboratory plasma potassium. Current Interpretive Data was last revised on 2022. Ionized Ca, POC 4.03(L) 4.50 - 5.10 mg/dL [facility] Glucose, POC 144 70 - 199 mg/dL [facility] Lactate, POC 0.8 0.7 - 2.0 mmol/L [facility] O2Hb, Art POC 97.4(H) 90.0 - 95.0 % [facility] SO2 (eduard) arterial 98(H) 90 - 95 % [facility] Total CO2, Art POC 22 21 - 30 mmol/L [facility] BE, art, POC -6 mmol/L [facility] Hct, POC 26.0(L) 38.9 - 50.3 % [facility] Total Hb, POC 8.8(L) 13.0 - 17.5 g/dL [facility] Blood 01/26/2025 3:21 PM CDT 01/26/2025 3:21 PM CDT Kasia Maldonado MD LAB POCT ORDERABLES - DEVICE F inal Result AYAKA HARRIS [address] Department [place] [address] * POC Activated Clotting Time, High Range (01/26/2025 2:14 PM CDT) Pathologist [facility] [place] ACT 126 87 - 138 sec POC Performer [id number] CERNER [facility] Blood 01/26/2025 2:14 PM CDT 01/26/2025 2:14 PM CDT Kasia Maldonado MD LAB BLOOD ORDERABLES Final Res ult Performing Organization Address City/[facility]/ZIP Co de Phone Number AYAKA White[address] [employer] [place] [address] * (ABNORMAL) POC Blood Gas and Chemistries, Arterial - (01/26/2025 1:20 PM CDT) pH, Art POC 7.36 7.35 - 7.45 pCO2, Art POC 41 35 - 45 mmHg CERNER CH pO2, Art POC 153(H) 83 - 108 mmHg CERNER CH Na, POC 135 135 - 145 mmol/L [facility]ER [facility] K POC 4.5 3.3 - 4.9 mmol/L CERNER [facility] Comment: Interpretive Data This method is not able to assess for hemolysis, which may falsely increase potassium concentrations. If further testing is needed to evaluate this result, consider in-laboratory plasma potassium. Current Interpretive Data was last revised on 2022. Ionized Ca, POC 4.23(L) 4.50 - 5.10 mg/dL CERNER CH Glucose, POC 135 70 - 199 mg/dL CERNER CH Lactate, POC 1.1 0.7 - 2.0 mmol/L CERNER CH O2Hb, Art POC 98.0(H) 90.0 - 95.0 % CERNER CH SO2 (eduard) arterial 99(H) 90 - 95 % CERNER CH Total CO2, Art POC 24 21 - 30 mmol/L CERNER CH BE, art, POC -2 mmol/L CERNER CH Hct, POC 26.0(L) 38.9 - 50.3 % CERNER CH Total Hb, POC 8.6(L) 13.0 - 17.5 g/dL [facility]ER CH Blood 01/26/2025 1:20 PM CDT 01/26/2025 1:20 PM CDT Kasia Maldonado MD LAB POCT ORDERABLES - DEVICE F inal Result Performing Organization Address City/[facility]/ZIP Co de Phone Number AYAKA White33 [address] Nicholosn Department [place] [address] * POC Activated Clotting Time, High Range (01/26/2025 1:17 PM CDT) ACT 115 87 - 138 sec POC Performer [id number] CERNER CH Blood 01/26/2025 1:17 PM CDT 01/26/2025 1:17 PM CDT Kasia Maldonado MD LAB BLOOD ORDERABLES Final Res ult AYAKA [address] [address] Department [place] [address] * (ABNORMAL) POC Blood Gas and Chemistries, Arterial - (01/26/2025 12:40 PM CDT) pH, Art POC 7.41 7.35 - 7.45 pCO2, Art POC 38 35 - 45 mmHg CERNER CH pO2, Art POC 241(H) 83 - 108 mmHg CERNER CH Na, POC 133(L) 135 - 145 mmol/L [facility]ER CH K POC 5.6(H) 3.3 - 4.9 mmol/L CERNER CH Comment: Interpretive Data This method is not able to assess for hemolysis, which may falsely increase potassium concentrations. If further testing is needed to evaluate this result, consider in-laboratory plasma potassium. Current Interpretive Data was last revised on 2022. Ionized Ca, POC 4.31(L) 4.50 - 5.10 mg/dL CERNER CH Glucose, POC 152 70 - 199 mg/dL [facility]ER CH Lactate, POC 0.8 0.7 - 2.0 mmol/L CERNER CH O2Hb, Art POC 98.0(H) 90.0 - 95.0 % CERNER CH SO2 (eduard) arterial 99(H) 90 - 95 % CERNER CH Total CO2, Art POC 25 21 - 30 mmol/L CERNER CH BE, art, POC 0 mmol/L [facility]ER [facility] Hct, POC 27.0(L) 38.9 - 50.3 % CERNER CH Total Hb, POC 8.9(L) 13.0 - 17.5 g/dL [facility]ER CH Blood 01/26/2025 12:4 0 PM CDT 01/26/2025 12:40 PM CDT Kasia Maldonado MD LAB POCT ORDERABLES - DEVICE F inal Result Performing Organization Address [facility] de Phone Number AYAKA HARRIS [address] [facility] [place] [address] * (ABNORMAL) POC Activated Clotting Time, High Range (01/26/2025 12:37 PM CDT) Pathologist [facility] [place] ACT 686(H) 87 - 138 sec POC Performer [id number] [facility] CH Blood 01/26/2025 12:3 7 PM CDT 01/26/2025 12:37 PM CDT Kasia Maldonado MD LAB BLOOD ORDERABLES Final Res ult Performing Organization Address [facility] de Phone Number AYAKA HARRIS [address] [address] [facility] [place] [address] * Platelet count (01/26/2025 12:30 PM CDT) Pathologist [facility] [place] Plt 209 150 - 400 K/cumm Blood 01/26/2025 12:3 0 PM CDT 01/26/2025 12:45 PM CDT Kasia Maldonado MD LAB BLOOD ORDERABLES Final Res ult Performing Organization Address [facility] de Phone Number AYAKA HARRIS [address] [address] [facility] [place] [address] * (ABNORMAL) POC Blood Gas and Chemistries, Arterial - (01/26/2025 12:01 PM CDT) pH, Art POC 7.40 7.35 - 7.45 pCO2, Art POC 40 35 - 45 mmHg CERNER CH pO2, Art POC 206(H) 83 - 108 mmHg CERNER CH Na, POC 133(L) 135 - 145 mmol/L [facility]ER [facility] K POC 5.5(H) 3.3 - 4.9 mmol/L C[facility]ER CH Comment: Interpretive Data This method is not able to assess for hemolysis, which may falsely increase potassium concentrations. If further testing is needed to evaluate this result, consider in-laboratory plasma potassium. Current Interpretive Data was last revised on 2022. Ionized Ca, POC 4.43(L) 4.50 - 5.10 mg/dL CERNER CH Glucose, POC 129 70 - 199 mg/dL CERNER CH Lactate, POC 0.7 0.7 - 2.0 mmol/L C[facility]ER CH O2Hb, Art POC 97.6(H) 90.0 - 95.0 % CERNER CH SO2 (eduard) arterial 99(H) 90 - 95 % CERNER CH Total CO2, Art POC 26 21 - 30 mmol/L [facility]ER CH BE, art, POC 0 mmol/L [facility]ER CH Hct, POC 27.0(L) 38.9 - 50.3 % CERNER CH Total Hb, POC 9.1(L) 13.0 - 17.5 g/dL [facility] Blood 01/26/2025 12:0 1 PM CDT 01/26/2025 12:01 PM CDT Kasia Maldonado MD LAB POCT ORDERABLES - DEVICE F inal Result Performing Organization Address City/[facility]/ZIP Co de Phone Number AYAKA HARRIS [address] [employer] [place], [place] [id number] * (ABNORMAL) POC Activated Clotting Time, High Range (01/26/2025 11:59 AM CDT) ACT 824(H) 87 - 138 sec POC Performer [id number] [facility] Blood 01/26/2025 11:5 9 AM CDT 01/26/2025 11:59 AM CDT Kasia Maldonado MD LAB BLOOD ORDERABLES Final Res ult AYAKA HARRIS [address] Department of [address] [place], [place] [id number] * (ABNORMAL) POC Blood Gas and Chemistries, Arterial - (01/26/2025 11:32 AM CDT) pH, Art POC 7.41 7.35 - 7.45 pCO2, Art POC 39 35 - 45 mmHg CERNER CH pO2, Art POC 223(H) 83 - 108 mmHg [facility]ER CH Na, POC 132(L) 135 - 145 mmol/L [facility] K POC 5.6(H) 3.3 - 4.9 mmol/L [facility]ER CH Comment: Interpretive Data This method is not able to assess for hemolysis, which may falsely increase potassium concentrations. If further testing is needed to evaluate this result, consider in-laboratory plasma potassium. Current Interpretive Data was last revised on 2022. Ionized Ca, POC 4.30(L) 4.50 - 5.10 mg/dL [facility] CH Glucose, POC 111 70 - 199 mg/dL [facility] CH Lactate, POC 0.6(L) 0.7 - 2.0 mmol/L [facility]ER CH O2Hb, Art POC 98.4(H) 90.0 - 95.0 % CERNER CH SO2 (eduard) arterial 100(H) 90 - 95 % CERNER CH Total CO2, Art POC 26 21 - 30 mmol/L C[facility]ER CH BE, art, POC 0 mmol/L [facility] CH Hct, POC 27.0(L) 38.9 - 50.3 % C[facility]ER CH Total Hb, POC 8.9(L) 13.0 - 17.5 g/dL [facility] CH Blood 01/26/2025 11:3 2 AM CDT 01/26/2025 11:32 AM CDT us Kasia Maldonado MD LAB POCT ORDERABLES - DEVICE F inal Result AYAKA HARRIS [address] [address] Department [place] [address] * (ABNORMAL) POC Activated Clotting Time, High Range (01/26/2025 11:29 AM CDT) ACT 674(H) 87 - 138 sec POC Performer [id number] C[facility]ER CH Blood 01/26/2025 11:2 9 AM CDT 01/26/2025 11:29 AM CDT Kasia Maldonado MD LAB BLOOD ORDERABLES Final Res ult Performing Organization Address City/[facility] Co de Phone Number AYAKA HARRIS [address] Department [place] [address] * (ABNORMAL) POC Activated Clotting Time, High Range (01/26/2025 10:48 AM CDT) ACT 548(H) 87 - 138 sec POC Performer [id number] AYAKA KIMBERLY Blood 01/26/2025 10:4 8 AM CDT 01/26/2025 10:48 AM CDT Kasia Maldonado MD LAB BLOOD ORDERABLES Final Res ult Performing Organization Address [facility] de Phone Number AYAKA HARRIS [address] [place] [address] * BW AN SHEATH INTRODUCER PERFORMABLE, PULMONARY ARTERY CATH (01/26/2025 9:33 AM CDT) Narrative Andrew Rivers AA - 01/26/2025 9:33 AM CDT Andrew Rivers AA 01/26/2025 9:33 AM Central Venous Line Patient location: OR Indication: central venous access and CVP monitoring Staff: Placed by: Anesthesiologist: José Manuel Torres MD Procedure prep: Patient position: Trendelenburg. PPE: provider hat/mask, sterile gloves, sterile gown, provider hand hygiene and full body drape. Prep solution: chlorhexadine/alcohol was applied to area. Ultrasound Evaluation: Ultrasound was used prior to prep and prepped into field. Ultrasound image(s) saved to archive. Prior to the procedure, the cannulated vein was evaluated by ultrasound and deemed suitably patent for access.This vessel was accessed using real-time ultrasound guidance and an image was placed in the patient's medical record Central line: Laterality: right Site: internal jugular Catheter type: multi-lumen access catheter (MAC) Oximetric catheter: yes Catheter size: 9 Fr. Catheter length: 11.5 cm Additional catheter placed through introducer: double lumen infusion catheter (DLIC) Catheter length at skin: 12 cm Technique: anatomy identified with ultrasound, vein located with finder needle, Seldinger technique, wire threaded easily and wire removed intact Venous verification: pressure transduced Post insertion: all ports aspirated, all ports flushed easily, line sutured in place and occlusive dressing applied Chlorhexidine patch applied: yes Number of attempts: 1 PA catheter placement: PA catheter type: oximetric PA catheter size: 8 Fr PA catheter laterality: right PA catheter site: internal jugular Placement guided by: pressure tracing changes and verified by TEENo Assessment: Events: patient tolerated procedure well with no complications us José Manuel Torres MD ANESTHESIA ORDERABLES Final Re sult * KY AN ELECTIVE ENDOTRACHEAL AIRWAY (01/26/2025 9:32 AM CDT) Narrative Andrew Rivers AA - 01/26/2025 9:32 AM CDT Andrew Rivers AA 01/26/2025 9:33 AM Airway Patient location: OR Urgency: elective Date/time: 01/26/2025 9:07 AM Indications for airway management: anesthesia Difficult airway: no Staff: Supervising provider: José Manuel Torres MD Placed by: AA: Andrew Rivers AA Emergent airway documentation: Risks and benefits discussed: yes Consent obtained: yes Consent given by: patient Airway prep: Preoxygenated: yes Patient position: sniffing Mask difficulty assessment: 1 - vent by mask Spontaneous ventilation during airway: absent Sedation level during airway: GA Final airway details: Final airway type: endotracheal airway Tube type: ETT ETT size: 8.0 mm Cuffed: yes Technique used for successful ETT placement: video laryngoscopy Insertion site: oral Blade type: Maira Video blade type: Razo Blade size: 4 Cormack-Lehane (video): grade I - full view of glottis Cuff inflated with: air ETT to lips: 22 cm Placement verified by: auscultation and CO2 detection Airway secured with: silk tape Number of attempts: 1 Additional comments: Atraumatic. Teeth as before. us José Manuel Torres MD ANESTHESIA ORDERABLES Final Re sult * Arterial Line (01/26/2025 9:31 AM CDT) Narrative Andrew Rivers AA - 01/26/2025 9:31 AM CDT Andrew Rivers AA 01/26/2025 9:32 AM Arterial Line Patient location: pre-op holding Indication: continuous blood pressure monitoring and blood sampling needed Staff: Supervising provider: José Manuel Torres MD Placed by: AA: Andrew Rivers AA Procedure prep: Prep solution: chlorhexadine/alcohol Prep: provider hat/mask and sterile gloves Skin infiltrated with lidocaine 1%: yes Arterial line: Catheter size: 20 gauge Catheter length: 1 and 3/4 inch Catheter type: wire-guided catheter Seldinger technique: yes Laterality: right Site: radial artery Line secured: Tegaderm and tape Results: good waveform and good blood return Number of attempts: 1 Assessment: Events: patient tolerated procedure well with no complications us José Manuel Torres MD ANESTHESIA ORDERABLES Final Re sult * (ABNORMAL) POC Blood Gas and Chemistries, Arterial - (01/26/2025 9:24 AM CDT) pH, Art POC 7.45 7.35 - 7.45 pCO2, Art POC 39 35 - 45 mmHg CERNER CH pO2, Art POC 391(H) 83 - 108 mmHg CERNER CH Na, POC 137 135 - 145 mmol/L CERNER CH K POC 3.4 3.3 - 4.9 mmol/L CERNER CH Comment: Interpretive Data This method is not able to assess for hemolysis, which may falsely increase potassium concentrations. If further testing is needed to evaluate this result, consider in-laboratory plasma potassium. Current Interpretive Data was last revised on 2022. Ionized Ca, POC 4.61 4.50 - 5.10 mg/dL CERNER CH Glucose, POC 73 70 - 199 mg/dL [facility]ER CH Lactate, POC 0.7 0.7 - 2.0 mmol/L CERNER CH O2Hb, Art POC 98.3(H) 90.0 - 95.0 % CERNER CH SO2 (eduard) arterial 99(H) 90 - 95 % CERNER CH Total CO2, Art POC 28 21 - 30 mmol/L CERNER CH BE, art, POC 3 mmol/L CERNER CH Hct, POC 36.0(L) 38.9 - 50.3 % CERNER CH Total Hb, POC 12.1(L) 13.0 - 17.5 g/dL [facility]ER CH Blood 01/26/2025 9:24 AM CDT 01/26/2025 9:24 AM CDT Kasia Maldonado MD LAB POCT ORDERABLES - DEVICE F inal Result Performing Organization Address [facility]/ZIP Co de Phone Number AYAKA HARRIS [address] [place] [address] * POC Activated Clotting Time, High Range (01/26/2025 9:22 AM CDT) ACT 101 87 - 138 sec POC Performer [id number] CERNER CH Blood 01/26/2025 9:22 AM CDT 01/26/2025 9:22 AM CDT Kasia Maldonado MD LAB BLOOD ORDERABLES Final Res ult Performing Organization Address [facility] Co de Phone Number AYAKA HARRIS [address] Department of [address]fon [place], [place] [id number] * Check Sample (01/26/2025 8:20 AM CDT) ABO Rh A Positive CH HCLL OTHER 01/26/2025 8:20 AM CDT 01/26/2025 9:06 AM CDT Kasia Maldonado MD LAB BLOOD ORDERABLES Final Res ult Performing Organization Address [facility] Co de Phone Number AYAKA HARRIS [address] [address] [facility] n[address] [place], [place] [id number] CH * Prepare RBC: 4 Units (01/26/2025 7:59 AM CDT) Product code [id number] CERNER CH Unit Number [id number] CERNER CH Product Blood Type APOS CERNER CH Dispense Status RETURNED CERNER CH Product code [id number] CERNER CH Unit Number [id number] CERNER CH Product Blood Type APOS CERNER CH Dispense Status PRESUMED TRANSFUSED CERNER CH Product code [id number] Unit Number [id number] CERNER CH Product Blood Type APOS CERNER CH Dispense Status RETURNED CERNER CH Product code [id number] CERNER CH Unit Number [id number] CERNER CH Product Blood Type APOS CERNER CH Dispense Status RETURNED CERNER CH Blood 01/26/2025 7:59 AM CDT Narrative CERNER CH - 01/28/2025 12:14 AM CDT Specify Procedure:->CABG Are special requirements needed? (All products are leukoreduced and CMV- safe)- >No Date required:-[id number] LRRBC # of [id number] Reasons:-Hold for procedure (specify procedure)} Jordan Escalera NP BLOOD BANK PRODUCT ORDERABL ES Final Result Performing Organization Address City/[facility] Co de Phone Number AYAKA HARRIS [address] Department of nfon [place], [place] [id number] * POCT glucose (01/26/2025 7:43 AM CDT) [facility] Signature Glucose, POC 195 70 - 199 mg/dL POC Performer [id number] CERNER CH Blood 01/26/2025 7:43 AM CDT 01/26/2025 7:43 AM CDT Kasia Maldonado MD LAB POCT ORDERABLES - DEVICE F inal Result Performing Organization Address City/[facility] Co de Phone Number AYAKA HARRIS [address] Department of nfon [place], [place] [id number] * ECG 12 lead (01/24/2025 11:43 AM CDT) 01/24/2025 11:4 3 AM CDT Narrative [facility] - 01/24/2025 4:24 PM CDT Vent Rate: 72 bpm RR Interval: 828 msec [place] Interval: 162 msec QRS Duration: 73 msec QT Interval: 348 msec QTC Interval: 372 msec P-R-T [place]: -6 - -23 - 13 degrees IMPRESSION: SINUS RHYTHM POSSIBLE LEFT ATRIAL ENLARGEMENT BORDERLINE LEFT AXIS DEVIATION BORDERLINE ECG Electronically Signed By: Jean Pierre Sanon MD Kasia Maldonado MD ECG ORDERABLES Final Result [facility] * XR Chest PA Lateral 2 View (01/24/2025 11:28 AM CDT) Anatomical Region Laterality Modality Body, Chest N/A Computed Radiogr aphy 01/24/2025 11:3 5 AM CDT Impressions 01/24/2025 11:35 AM CDT NO ACUTE PULMONARY CHANGE. Electronically signed by: Miguel Claros M.D. Narrative 01/24/2025 11:35 AM CDT EXAMINATION: XR CHEST PA LATERAL 2 VIEWS HISTORY: Coronary artery disease ORDER DATE: 01/24/2025 11:20 AM FINDINGS: The lungs are clear of infiltrate. The cardiac and mediastinal outlines are unremarkable. There are no significant pleural effusions . No significant abnormalities are noted in the spine except for minor few degree dextroscoliosis centered at the midthoracic level.. Procedure Note Miguel Claros MD - 01/24/2025 EXAMINATION: XR CHEST PA LATERAL 2 VIEWS HISTORY: Coronary artery disease ORDER DATE: 01/24/2025 11:20 AM FINDINGS: The lungs are clear of infiltrate. The cardiac and mediastinal outlines are unremarkable. There are no significant pleural effusions . No significant abnormalities are noted in the spine except for minor few degree dextroscoliosis centered at the midthoracic level.. IMPRESSION: NO ACUTE PULMONARY CHANGE. Electronically signed by: Miguel Claros M.D. Kasia Maldonado MD IMG XR PROCEDURES Final Result * eGFR (01/24/2025 11:11 AM CDT) eGFR >90 >=60 mL/min/1. 73 m2 Comment: Interpretive Data Reference Interval Normal >/= 90 mL/min/1.73m2 Mildly decreased* 60 - 89 mL/min/1.73m2 Mildly to moderately decreased 45 - 59 mL/min/1.73m2 Moderately to severely decreased 30 - 44 mL/min/1.73m2 Severely decreased 15 - 29 mL/min/1.73m2 Kidney Failure < 15 mL/min/1.73m2 *Relative to young adult level Estimated glomerular filtration rate is determined by the 2020 CKD-EPI equation recommended by the National Kidney Foundation (A Unifying Approach to GFR Estimation: Recommendations of the NKF-ASK Task Force on Reassessing the Inclusion of Race in Diagnosing Kidney Disease, JASN 2020). The CKD-EPI equation should not be used for patients with unstable renal function and has not been validated in children and those over 70. Current interpretive data was last reviewed 2021. Blood 01/24/2025 11:1 1 AM CDT 01/24/2025 11:48 AM CDT Kasia Maldonado MD LAB BLOOD ORDERABLES Final Res ult [facility] [address] Department [place] [address] * Urinalysis reflex to microscopic and culture Urine, clean voided (01/24/2025 11:11 AM CDT) Color, ur Yellow Yellow Clarity, ur Clear Clear CERNER CH Specific gravity, ur 1.018 1.003 - 1.030 CERNER CH pH, urine 5.5 CERNER CH Comment: Interpretive Data U rine pH is affected by diet, medications, systemic acid-base disturbances, and renal tubular function. pH may affect urinary stone formation. For example, urine pH below 6.0 may help reduce the tendency for calcium phosphate stones and pH greater than 6.0 may reduce the tendency for uric acid stone formation. Source: ihiji Current Interpretive Data was last revised on 2017 Protein, ur ql Negative Negative CERNER CH Glucose, ur ql Negative Negative [facility]ER CH Ketones, ur Negative Negative [facility]ERNER CH Bilirubin, ur Negative Negative [facility]ERNER CH Blood, ur Negative Negative [facility] CH Urobilinogen, ur <2.0 <2.0 mg/dL AYAKA Nitrite, ur Negative Negative [facility] Leukocyte esterase, ur Negative Negative [facility] UA reflex comment Reflex conditions for microscopic UA and culture not met. AYAKA Urine, clean voided 01/24/2025 11:11 AM CDT 01/24/2025 12:31 PM CDT Kasia Maldonado MD LAB MICROBIOLOGY - GENERAL ORD ERABLES Final Result Performing Organization Address [facility] Co de Phone Number [place] [address] [place] [address] * aPTT (01/24/2025 11:11 AM CDT) aPTT 29 28 - 38 sec Comment: Interpretive Data Heparin therapeutic range: 66.0 - 100.0 seconds. Range based on correlation with therapeutic heparin activity range of 0.3 - 0.7 Units/mL. Current interpretive data was last revised on 2023. Blood 01/24/2025 11:1 1 AM CDT 01/24/2025 11:48 AM CDT Kasia Maldonado MD LAB BLOOD ORDERABLES Final Res ult Performing Organization Address [facility] Co de Phone Number [facility] [address] [place] [address] * Protime-INR (01/24/2025 11:11 AM CDT) PT 12.1 9.7 - 13.0 sec INR 1.12 0.90 - 1.20 AYAKA Comment: Interpretive data Oral anticoagulant therapeutic ranges: Venous thromboembolism prophylaxis or treatment: 2.0-3.0 CARDIOLOGY Standard range: 2.0-3.0 High-intensity range: 2.5-3.5 Refer to indication-specific guidelines for appropriate target ranges for prosthetic heart valve replacement. Current interpretive data was last revised on 2019. Blood 01/24/2025 11:1 1 AM CDT 01/24/2025 11:48 AM CDT Kasia Maldonado MD LAB BLOOD ORDERABLES Final Res ult Performing Organization Address [facility] Co de Phone Number AYAKA HARRIS [address] [place] [address] * (ABNORMAL) CBC without differential (01/24/2025 11:11 AM CDT) WBC 9.86 3.80 - 9.90 K/cumm Hgb 13.5 13.0 - 17.5 g/dL CERNER CH Hct 40.5 38.9 - 50.3 % CERNER CH Plt 302 150 - 400 K/cumm [facility]ERNER CH MPV 9.0(L) 9.1 - 12.3 fL [facility] CH RBC 4.29(L) 4.30 - 5.80 M/cumm [facility] CH MCV 94.4 81.3 - 96.4 fL [facility] CH MCH 31.5 27.1 - 33.3 pg [facility]ERNER CH MCHC 33.3 32.3 - 35.7 g/dL [facility]ERNER CH RDW CV 13.0 11.1 - 14.9 % CERNER CH RDW SD 44.7 35.7 - 48.1 fL [facility] CH NRBC abs 0.00 0.00 - 0.01 K/cumm [facility] Blood 01/24/2025 11:1 1 AM CDT 01/24/2025 11:48 AM CDT Kasia Maldonado MD LAB BLOOD ORDERABLES Final Res ult Performing Organization Address City/[facility]/ZIP Co de Phone Number AYAKA HARRIS [address] [place] [address] * Type and screen (01/24/2025 11:11 AM CDT) Cosmo, indirect Negative ABO Rh A Positive [facility]ER CH Blood 01/24/2025 11:1 1 AM CDT 01/24/2025 11:49 AM CDT [facility]ative [facility] - 01/24/2025 12:31 PM CDT Has the patient had Daratumumab or Isatuximab in the past 6 months?->Unknown Kasia Maldonado MD LAB BLOOD BANK TEST ORDERABLES Final Result Performing Organization Address City/[facility]/ZIP Co de Phone Number [facility] [address] Department [place] [address] * (ABNORMAL) Basic metabolic panel (01/24/2025 11:11 AM CDT) [facility] Sodium 134(L) 135 - 145 mmol/L Potassium, pl 4.1 3.3 - 4.9 mmol/L [facility] Chloride 100 97 - 110 mmol/L [facility] CO2 24 22 - 32 mmol/L [facility] Anion gap 10 2 - 15 mmol/L [facility] BUN 17 6 - 25 mg/dL [facility] Creatinine 0.70(L) 0.80 - 1.30 mg/dL [facility] Glucose 123 70 - 199 mg/dL [facility] Comment: Interpretive Data Fasting glucose >/= 126 mg/dl is diagnostic for diabetes. Fasting is defined as no caloric intake for at least 8 hours. Fasting glucose between 100 mg/dl to 125 mg/dl is diagnostic of prediabetes. In a patient with classic symptoms of hyperglycemia or hyperglycemic crisis, a random glucose >/= 200 mg/dl is diagnostic for diabetes. In the absence of unequivocal hyperglycemia, results should be confirmed by repeat testing. The classification and Diagnosis of Diabetes Diabetes Care 2021; 46: S19-S40. Current interpretive data was last revised 2022. Calcium 9.4 8.5 - 10.3 mg/dL [facility] Blood 01/24/2025 11:1 1 AM CDT 01/24/2025 11:48 AM CDT Kasia Maldonado MD LAB BLOOD ORDERABLES Final Res ult Performing Organization Address City/[facility]/ZIP Co de Phone Number [facility] [id number] Department [place] [address] * Carotids Duplex Bilateral (01/20/2025 2:30 PM CDT) Anatomical Region Laterality Modality Vascular Bilateral Ultrasound 01/20/2025 2:34 PM CDT Impressions 01/20/2025 2:34 PM CDT There is less than 50% stenosis noted in the right and the left internal carotid arteries. Electronically signed by: Matthew More M.D. Narrative 01/20/2025 2:34 PM CDT EXAMINATION: US CAROTIDS DUPLEX BILATERAL HISTORY: The patient is a 74-year-old male who is having a pre-op carotid ultrasound. TECHNIQUE: Bilateral carotid artery duplex study was performed with arias scale imaging, color Doppler imaging and spectral waveform analysis. Nascet criteria was utilized. FINDINGS: Right side: Plaque morphology: There is smooth, homogenous plaque noted in the carotid bulb and proximal ICA with flecks of calcification within it. Peak systolic velocity in the right CCA is 55 cm/s, in the distal ICA is 77/16 cm/s and in the ECA is 58/6 cm/s with an ICA/CCA ratio of 0.4. Normal antegrade flow noted in the right vertebral artery. Left side: Plaque morphology: There is smooth, homogenous plaque noted in the carotid bulb and proximal ICA with flecks of calcification within it. Peak systolic velocity in the left CCA is 66 cm/s, in the distal ICA is 96/22 cm/s ECA is 72 cm/s with an ICA/CCA ratio of 1.4. Normal antegrade flow noted in the left vertebral artery. Procedure Note Matthew More MD - 01/20/2025 EXAMINATION: US CAROTIDS DUPLEX BILATERAL HISTORY: The patient is a 74-year-old male who is having a pre-op carotid ultrasound. TECHNIQUE: Bilateral carotid artery duplex study was performed with arias scale imaging, color Doppler imaging and spectral waveform analysis. Nascet criteria was utilized. FINDINGS: Right side: Plaque morphology: There is smooth, homogenous plaque noted in the carotid bulb and proximal ICA with flecks of calcification within it. Peak systolic velocity in the right CCA is 55 cm/s, in the distal ICA is 77/16 cm/s and in the ECA is 58/6 cm/s with an ICA/CCA ratio of 0.4. Normal antegrade flow noted in the right vertebral artery. Left side: Plaque morphology: There is smooth, homogenous plaque noted in the carotid bulb and proximal ICA with flecks of calcification within it. Peak systolic velocity in the left CCA is 66 cm/s, in the distal ICA is 96/22 cm/s ECA is 72 cm/s with an ICA/CCA ratio of 1.4. Normal antegrade flow noted in the left vertebral artery. IMPRESSION: There is less than 50% stenosis noted in the right and the left internal carotid arteries. Electronically signed by: Matthew More M.D. us Anabell Saini MD IMG US PROCEDURES Final Result * TRANSTHORACIC ECHO (TTE) COMPLETE W DOPPLER/CF WO CONTRAST (01/20/2025 1:27 PM CDT) Anatomical Region Laterality Modality Ultrasound 01/20/2025 12:4 9 PM CDT Narrative 01/20/2025 1:59 [place] [address] Echocardiogram Report Patient Name: OSEAS MORA ALFRED : 1950 Study Date: 01/20/2025 12:49:29 PM Gender: M Tech: Location: [facility] Provider: ANABELL SAINI Height(Cm): 170 BSA: 1.86 Weight(Kg): 73 Heart Rate: 66 BP: 154/86 Quality: Good Order Provider: ANABELL SAINI PROCEDURES: Echocardiographic Report: Transthoracic echocardiogram with complete 2D, M-Mode, and color Doppler examination. INDICATIONS: Pre Op Evaluation. MEASUREMENTS: 2D/MM Value Range Doppler Value Range LVIDd 2D 3.50 cm [ 4.20 - 5.80 ] ANALIA Vmax 2.45 cm2 LVIDs 2D 2.33 cm [ 2.50 - 4.00 ] AV Mean PG 5 mmHg LVPWd 2D 1.17 cm [ 0.60 - 1.00 ] AV Peak Charlie 1.50 m/s [ 1.00 - 1.70 ] IVSd 2D 1.32 cm [ 0.60 - 1.00 ] AV VTI 30.00 cm LA Dimension MM 3.37 cm [ 3.00 - 4.00 ] LVOT Diam 2.02 cm AoR Diam 2D 3.33 cm [ 3.10 - 3.70 ] LVOT Peak Charlie 1.16 m/s [ 0.70 - 1.10 ] AoR Diam MM 2.86 cm [ 3.10 - 3.70 ] LVOT VTI 25.00 cm SI LVOT 43.0 ml/m2 [ >= 35.0 ] MV E Peak Charlie 0.52 m/s [ 0.60 - 1.30 ] MV A Peak Charlie 0.62 m/s [ 1.00 - 1.20 ] MV Mean PG 1 mmHg MV PHT 55 msec [ 20 - 100 ] MVA PHT 4.02 cm2 MV Decel Time 189 msec [ 104 - 258 ] PV Peak Charlie 1.16 m/s [ 0.40 - 0.80 ] TR Peak Charlie 2.22 m/s [ 1.00 - 2.80 ] TR Peak PG 20 mmHg E` 0.07 m/s E/E` 7.00 2D/MM Value Range Doppler Value Range - FINDINGS: Atrial Septum: Normal atrial septum. The atrial septum is not well visualized. Left Ventricle: The left ventricle is normal in size and systolic function. There is left ventricular concentric remodeling. The left ventricular ejection fraction is visually estimated to be 60-65%. There is grade 1 diastolic dysfunction. Left Atrium: The left atrium is normal in size. Right Ventricle: Normal right ventricular size. Normal right ventricular systolic function. Right Atrium: The right atrium is normal in size. Aortic Valve: The aortic valve is trileaflet and calcified. The non coronary cusp is heavily calcified and leaflet mobility is restricted. Doppler gradients across the aortic valve does not suggest hemodynamically significant stenosis. There is mild aortic regurgitation. Mitral Valve: The mitral valve leaflets are sclerotic but opens well. There is annular calcification. There is trace mitral regurgitation. Pulmonic Valve: The pulmonic valve is not well visualized. There is no pulmonic valve regurgitation by color Doppler. Tricuspid Valve: The tricuspid valve is normal. There is trace tricuspid regurgitation. Pericardium: Normal pericardium with no significant pericardial effusion. Aorta: The aortic root at the level of the sinus of Valsalva measures 3.3 cm in diameter. IVC: The IVC is not well visualized. CONCLUSIONS: The aortic valve is trileaflet and calcified. The non coronary cusp is heavily calcified and leaflet mobility is restricted. Doppler gradients across the aortic valve does not suggest hemodynamically significant stenosis. There is mild aortic regurgitation. There is normal biventricular size and systolic function. Electronically Signed By: Dr. Anabell Saini 01/20/2025 1:58:44 PM CDT Procedure Note Anabell Saini MD - 01/20/[address] [place] [address] Echocardiogram Report Patient Name: OSEAS MORA ALFRED : 1950 Study Date: 01/20/2025 12:49:29 PM Gender: M Tech: Location: [facility] Ref Provider: ANABELL SAINI Height(Cm): 170 BSA: 1.86 Weight(Kg): 73 Heart Rate: 66 BP: 154/86 Quality: Good Order Provider: ANABELL SAINI PROCEDURES: Echocardiographic Report: Transthoracic echocardiogram with complete 2D, M-Mode, and color Dopplerexamination. INDICATIONS: Pre Op Evaluation. MEASUREMENTS: 2D/MM Value Range Doppler ValueRange LVIDd 2D 3.50 cm [ 4.20 - 5.80 ] ANALIA Vmax 2.45cm2 LVIDs 2D 2.33 cm [ 2.50 - 4.00 ] AV Mean PG 5 mmHg LVPWd 2D 1.17 cm [ 0.60 - 1.00 ] AV Peak Charlie 1.50 m/s[ 1.00 - 1.70 ] IVSd 2D 1.32 cm [ 0.60 - 1.00 ] AV VTI 30.00cm LA Dimension MM 3.37 cm [ 3.00 - 4.00 ] LVOT Diam 2.02cm AoR Diam 2D 3.33 cm [ 3.10 - 3.70 ] LVOT Peak Charlie 1.16 m/s[ 0.70 - 1.10 ] AoR Diam MM 2.86 cm [ 3.10 - 3.70 ] LVOT VTI 25.00cm SI LVOT 43.0 ml/m2 [ >= 35.0 ] MV E Peak Charlie 0.52 m/s [ 0.60 - 1.30 ] MV A Peak Charlie 0.62 m/s [ 1.00 - 1.20 ] MV Mean PG 1 mmHg MV PHT 55 msec [ 20 - 100 ] MVA PHT 4.02 cm2 MV Decel Time 189 msec [ 104 - 258 ] PV Peak Charlie 1.16 m/s [ 0.40 - 0.80 ] TR Peak Charlie 2.22 m/s [ 1.00 - 2.80 ] TR Peak PG 20 mmHg E` 0.07 m/s E/E` 7.00 2D/MM Value Range Doppler ValueRange - FINDINGS: Atrial Septum: Normal atrial septum. The atrial septum is not well visualized. Left Ventricle: The left ventricle is normal in size and systolic function. There is leftventricular concentric remodeling. The left ventricular ejection fraction is visuallyestimated to be 60-65%. There is grade 1 diastolic dysfunction. Left Atrium: The left atrium is normal in size. Right Ventricle: Normal right ventricular size. Normal right ventricular systolicfunction. Right Atrium: The right atrium is normal in size. Aortic Valve: The aortic valve is trileaflet and calcified. The non coronary cusp isheavily calcified and leaflet mobility is restricted. Doppler gradients across the aorticvalve does not suggest hemodynamically significant stenosis. There is mild aorticregurgitation. Mitral Valve: The mitral valve leaflets are sclerotic but opens well. There is annularcalcification. There is trace mitral regurgitation. Pulmonic Valve: The pulmonic valve is not well visualized. There is no pulmonic valveregurgitation by color Doppler. Tricuspid Valve: The tricuspid valve is normal. There is trace tricuspid regurgitation. Pericardium: Normal pericardium with no significant pericardial effusion. Aorta: The aortic root at the level of the sinus of Valsalva measures 3.3 cm indiameter. IVC: The IVC is not well visualized. CONCLUSIONS: The aortic valve is trileaflet and calcified. The non coronary cusp isheavily calcified and leaflet mobility is restricted. Doppler gradients across the aorticvalve does not suggest hemodynamically significant stenosis. There is mild aorticregurgitation. There is normal biventricular size and systolic function. Electronically Signed By: Dr. Anabell Saini 01/20/2025 1:58:44 PM CDT Anabell Saini MD CV ECHO PROCEDURES Final Result * POCT glucose (01/20/2025 10:23 AM CDT) [facility] Glucose, POC 102 70 - 199 mg/dL POC Performer [phone] AYAKA Blood 01/20/2025 10:2 3 AM CDT 01/20/2025 10:23 AM CDT Anabell Saini MD LAB POCT ORDERABLES - DEVICE Fin al Result [facility] [id number] [facility] Department [place] [address] * LEFT HEART CATHETERIZATION WITH CORONARY ANGIOGRAPHY AND WITH AND WITHOUT LEFT VENTRICULOGRAM (01/20/2025 9:42 AM CDT) Anatomical Region Laterality Modality X-Ray Angiograph y Narrative 01/20/2025 10:24 AM CDT CARDIAC CATHETERIZATION REPORT Oseas Mora ENCOUNTER: [id number] Date of Procedure: 01/20/2025 BIRTHDATE: 1950 [employer] CATALY[employer] OPERATOR: Anabell Saini MD REFERRING PHYSICIAN: Dr. Patricio PREPROCEDURE DIAGNOSES: Abnormal coronary CTA PROCEDURES PERFORMED: Moderate sedation that started at 103/76 and ended at 122/66 using 2mg of Versed and 100mcg of fentanyl. The registered nurse was Susana Martínez. Selective left and right coronary angiogram. Left heart catheterization with measurement of LVEDP and gradient across the aortic valve. FINDINGS: 1. Left main: The left main coronary artery in its distal body has 90% trifurcation stenosis involving the distal left main, ostial LAD, ostial ramus, and ostial left circumflex. 2. Left anterior descending: The LAD provides 1 main diagonal branch. The ostial to proximal LAD has 90-95% stenosis. The remainder of the LAD has diffuse 10-20% stenosis. There is myocardial bridging in the mid segment of the LAD. The diagonal branches free of angiographic high-grade stenosis. 3. Left circumflex: The left circumflex artery is a moderate caliber vessel that provides 3 OM branches. The ostium of the left circumflex has 90-95% stenosis. The 1st OM branch has a very high takeoff close to the ostium of the left circumflex and has 70-80% stenosis in its ostium as well. 4. Ramus intermedius: 80-90% ostial to proximal disease. The remainder of the vessel has luminal irregularities. 5. Right coronary artery: The RCA is a large dominant vessel. The ostium of the RCA has 40-50% stenosis. The mid RCA has a high-grade 99% stenosis. The remainder of the vessel have luminal irregularities. 5. Left ventricle: A. End-diastolic pressure 16 mmHg. B. LV gram deferred. C. No significant gradient across aortic valve on catheter pullback. 6. Opening aortic pressure 103/76 and closing aortic pressure 122/66 ACCESS: Right radial artery COMPLICATIONS: None ESTIMATED BLOOD LOSS: 5 mL PROCEDURAL DESCRIPTION: Informed consent was obtained from patient. 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 Moderate sedation was given and the right wrist was subcutaneously injected with 1% lidocaine. The right radial artery was accessed using a 6Fr sheath via a micropuncture needle and modified Seldinger technique. Selective left coronary angiogram was done using a JL3.5 catheter with the tip of the catheter placed in the left main coronary artery. Selective right coronary angiogram was done using JR4 catheter with the tip of the catheter placed in the right coronary artery. The JR4 diagnostic catheter was advanced across the aortic valve into the left ventricle to obtain measurement of LVEDP and the gradient across aortic valve. TR band was used for closure. CONCLUSIONS Multivessel coronary artery disease with distal left main involvement. PLAN Continue optimal medical management CT surgery consultation for evaluation for coronary artery bypass grafting Anabell Saini MD CV CARDIAC CATH PROCEDURES Final Result * eGFR (01/20/2025 8:06 AM CDT) eGFR >90 >=60 mL/min/1. 73 m2 Comment: Interpretive Data Reference Interval Normal >/= 90 mL/min/1.73m2 Mildly decreased* 60 - 89 mL/min/1.73m2 Mildly to moderately decreased 45 - 59 mL/min/1.73m2 Moderately to severely decreased 30 - 44 mL/min/1.73m2 Severely decreased 15 - 29 mL/min/1.73m2 Kidney Failure < 15 mL/min/1.73m2 *Relative to young adult level Estimated glomerular filtration rate is determined by the 2020 CKD-EPI equation recommended by the National Kidney [employer] (A Unifying Approach to GFR Estimation: Recommendations of the NKF-ASK Task Force on Reassessing the Inclusion of Race in Diagnosing Kidney Disease, JASN 2020). The CKD-EPI equation should not be used for patients with unstable renal function and has not been validated in children and those over 70. Current interpretive data was last reviewed 2021. Blood 01/20/2025 8:06 AM CDT 01/20/2025 8:18 AM CDT Anabell Saini MD LAB BLOOD ORDERABLES Final Resul t [facility] [id number] Department [place] [address] * (ABNORMAL) Differential, auto (01/20/2025 8:06 AM CDT) Neutrophil abs 3.61 1.50 - 6.50 K/cumm Imm gran abs 0.02 0.00 - 0.10 K/cumm [facility] Lymphocyte abs 2.31 0.80 - 3.30 K/cumm [facility] Monocyte abs 1.06(H) 0.20 - 0.80 K/cumm [facility] Eosinophil abs 0.19 0.00 - 0.50 K/cumm [facility] Basophil abs 0.09 0.00 - 0.10 K/cumm [facility] Neutrophil pct 49.6 % [facility] Comment: Interpretive Data Percent cell count reference ranges are not reported, since discordance with absolute values may lead to misinterpretation of CBC data. Current Interpretive Data was last revised on 2018. Imm gran pct 0.3 % [facility] Comment: Interpretive Data Percent cell count reference ranges are not reported, since discordance with absolute values may lead to misinterpretation of CBC data. Current Interpretive Data was last revised on 2018. Lymphocyte pct 31.7 % [facility] Comment: Interpretive Data Percent cell count reference ranges are not reported, since discordance with absolute values may lead to misinterpretation of CBC data. Current Interpretive Data was last revised on 2018. Monocyte pct 14.6 % [facility] Comment: Interpretive Data Percent cell count reference ranges are not reported, since discordance with absolute values may lead to misinterpretation of CBC data. Current Interpretive Data was last revised on 2018. Eosinophil pct 2.6 % [facility] Comment: Interpretive Data Percent cell count reference ranges are not reported, since discordance with absolute values may lead to misinterpretation of CBC data. Current Interpretive Data was last revised on 2018. Basophil pct 1.2 % [facility] Comment: Interpretive Data Percent cell count reference ranges are not reported, since discordance with absolute values may lead to misinterpretation of CBC data. Current Interpretive Data was last revised on 2018. Blood 01/20/2025 8:06 AM CDT 01/20/2025 8:17 AM CDT us Anabell Saini MD LAB BLOOD ORDERABLES Final Resul t [facility] [id number] [address] Department [place] [address] * (ABNORMAL) CBC with auto differential (01/20/2025 8:06 AM CDT) WBC 7.28 3.80 - 9.90 K/cumm Hgb 14.2 13.0 - 17.5 g/dL [facility] Hct 42.1 38.9 - 50.3 % [facility] Plt 302 150 - 400 K/cumm [facility] MPV 9.0(L) 9.1 - 12.3 fL [facility] RBC 4.45 4.30 - 5.80 M/cumm [facility] MCV 94.6 81.3 - 96.4 fL [facility] MCH 31.9 27.1 - 33.3 pg [facility] MCHC 33.7 32.3 - 35.7 g/dL [facility] RDW CV 12.9 11.1 - 14.9 % [facility] RDW SD 44.8 35.7 - 48.1 fL [facility] NRBC abs 0.00 0.00 - 0.01 K/cumm [facility] Blood 01/20/2025 8:06 AM CDT 01/20/2025 8:17 AM CDT Narrative [facility] - 01/20/2025 8:35 AM CDT If most recent labs were drawn prior to 4 AM, draw only prior to initiating procedure. us Anabell Saini MD LAB BLOOD ORDERABLES Final Resul t [facility] [id number] [address] Department [place] [address] * (ABNORMAL) Basic metabolic panel (01/20/2025 8:06 AM CDT) [facility] Sodium 139 135 - 145 mmol/L Potassium, pl 4.1 3.3 - 4.9 mmol/L [facility] Chloride 104 97 - 110 mmol/L [facility] CO2 25 22 - 32 mmol/L [facility] Anion gap 10 2 - 15 mmol/L [facility] BUN 17 6 - 25 mg/dL [facility] Creatinine 0.77(L) 0.80 - 1.30 mg/dL [facility] Glucose 115 70 - 199 mg/dL [facility] Comment: Interpretive Data Fasting glucose >/= 126 mg/dl is diagnostic for diabetes. Fasting is defined as no caloric intake for at least 8 hours. Fasting glucose between 100 mg/dl to 125 mg/dl is diagnostic of prediabetes. In a patient with classic symptoms of hyperglycemia or hyperglycemic crisis, a random glucose >/= 200 mg/dl is diagnostic for diabetes. In the absence of unequivocal hyperglycemia, results should be confirmed by repeat testing. The classification and Diagnosis of Diabetes Diabetes Care 2021; 46: S19-S40. Current interpretive data was last revised 2022. Calcium 9.1 8.5 - 10.3 mg/dL [facility] Blood 01/20/2025 8:06 AM CDT 01/20/2025 8:18 AM CDT us Anabell Saini MD LAB BLOOD ORDERABLES Final Resul t Performing Organization Address City/[facility]/ZIP Co de Phone Number AYAKA [address] [address] [place] [address] * POCT glucose (01/20/2025 7:57 AM CDT) [facility] Signature Glucose, POC 109 70 - 199 mg/dL POC Performer [phone] [facility] Blood 01/20/2025 7:57 AM CDT 01/20/2025 7:57 AM CDT us Anabell Saini MD LAB POCT ORDERABLES - DEVICE Fin al Result Performing Organization Address [facility] Co de Phone Number [facility] [address] [address] [place] [address] * CTA Heart and Coronary Arteries W Morphology when Performed (01/12/2025 2:18 PM CDT) Anatomical Region Laterality Modality Chest N/A Computed Tomogra phy 01/12/2025 3:13 PM CDT Impressions 01/12/2025 3:23 PM CDT 1. Multivessel mixed calcified and noncalcified atherosclerotic plaque resulting in severe stenosis of the origin of the right coronary artery and severe stenosis at the distal left main/proximal left anterior descending artery with positive remodeling. Recommend cardiac catheterization. 2. Moderate hiatal hernia. Dictated by: Ronald Alexander MD The radiology attending physician has personally reviewed this study, and had reviewed and/or edited this written report and agrees with it. Electronically signed by: Eliu Gayle M.D. Narrative 01/12/2025 3:23 PM CDT EXAMINATION: CORONARY CT ANGIOGRAM HISTORY: Ischemic symptoms TECHNIQUE: CT angiography of the coronary arteries was performed after the administration of 100 mL of Optiray 350. Images were also obtained precontrast for the purposes of calcium scoring. 10 mg of metoprolol was administered intravenously prior to the examination as well as 0.8 mg of nitroglycerin. The patient's heart rate and blood pressure at the time of the examination were 60 beats per minute and 120/70 mmHg. Images were transferred to a 3D workstation for additional post-processing. FINDINGS: The coronary arteries are right system dominant. No anomalous course or origin. Right coronary system: At the origin of the right coronary artery, there is noncalcified plaque with narrowing and positive remodeling, this results in moderate to severe stenosis. There is noncalcified plaque seen within the mid aspect of the right coronary artery which results in moderate stenosis. Left coronary system: Mixed calcified and noncalcified plaque involving the distal left main/proximal left anterior descending artery at the trifurcation with positive remodeling resulting in severe stenosis. There is calcified plaque seen within the distal portion of left anterior descending artery resulting in mild stenosis. The calculated calcium score is 207. Other findings: Calcified and noncalcified atherosclerotic plaque involving the proximal descending aorta. Moderate aortic valve and mitral annular calcifications. Moderate sized hiatal hernia. Procedure Note Eliu Gayle MD - 01/12/2025 EXAMINATION: CORONARY CT ANGIOGRAM HISTORY: Ischemic symptoms TECHNIQUE: CT angiography of the coronary arteries was performed after the administration of 100 mL of Optiray 350. Images were also obtained precontrast for the purposes of calcium scoring. 10 mg of metoprolol was administered intravenously prior to the examination as well as 0.8 mg of nitroglycerin. The patient's heart rate and blood pressure at the time of the examination were 60 beats per minute and 120/70 mmHg. Images were transferred to a 3D workstation for additional post-processing. FINDINGS: The coronary arteries are right system dominant. No anomalous course or origin. Right coronary system: At the origin of the right coronary artery, there is noncalcified plaque with narrowing and positive remodeling, this results in moderate to severe stenosis. There is noncalcified plaque seen within the mid aspect of the right coronary artery which results in moderate stenosis. Left coronary system: Mixed calcified and noncalcified plaque involving the distal left main/proximal left anterior descending artery at the trifurcation with positive remodeling resulting in severe stenosis. There is calcified plaque seen within the distal portion of left anterior descending artery resulting in mild stenosis. The calculated calcium score is 207. Other findings: Calcified and noncalcified atherosclerotic plaque involving the proximal descending aorta. Moderate aortic valve and mitral annular calcifications. Moderate sized hiatal hernia. IMPRESSION: 1. Multivessel mixed calcified and noncalcified atherosclerotic plaque resulting in severe stenosis of the origin of the right coronary artery and severe stenosis at the distal left main/proximal left anterior descending artery with positive remodeling. Recommend cardiac catheterization. 2. Moderate hiatal hernia. Dictated by: Ronald Alexander MD The radiology attending physician has personally reviewed this study, and had reviewed and/or edited this written report and agrees with it. Electronically signed by: Eliu Gayle M.D. Gera Patricio MD IMG CT PROCEDURES Final R esult * POC ISTAT (01/12/2025 1:52 PM CDT) [facility] Creatinine, POC, bld 0.8 0.6 - 1.3 mg/dL POC Device Number [id number] AYAKA ANDRADEWCH POC Performer [phone] AYAKA ANDRADEKIMBERLY Blood 01/12/2025 1:52 PM CDT 01/12/2025 1:52 PM CDT us Shabbir White MD LAB BLOOD ORDERABL ES Final Result [facility] [id number] [facility]. [place] [address] * POCT lipid panel (12/15/2024 2:28 PM PRODUCE ASSISTANT) [facility] Cholesterol, POC 231 mg/dL HDL, POC 45 mg/dL Triglycerides, POC 108 mg/dL LDL Cholesterol POC 165 mg/dL Chol/HDL Ratio, POC 5.1 Non-HDL Cholesterol, POC 186 mg/dL Cholesterol Total, POC 231 mg/dL Capillary blood 12/15/2024 2 :28 PM PRODUCE ASSISTANT Gera Patricio MD POINT OF CARE TEST ORDERA BLES Final Result * Electrocardiogram Report (12/15/2024 8:17 AM PRODUCE ASSISTANT) Gera Patricio MD ECG ORDERABLES Final Res ult from Last 3 Months Insurance [facility] [employer] MEDICARE [facility] [employer] Advance Directives For more information, please contact: [phone] * Full Code (Latest Code Status on File) Date Activated Date Inactivated Comments 01/26/2025 4:03 PM 01/31/2025 9:06 PM Care Teams Specialty Therapist Relationship Specialty Start Date End Date Shabbir White MD [address] [place] [address] PCP - General 02/07/17 Kasia Maldonado MD [address] [facility] [id number] [place] [address] Surgeon Cardiothoracic Surgery 01/31/25 Gera Patricio MD [address] [facility] [address] [place] [id number] Consulting Physician Cardiology 01/31/25 Miscellaneous, Not In File 01/31/25
--- OUTSIDE RECORDS SUMMARY | 2025-02-12 12:21 | XMS_ITS | Referral Summary ---
Author Organization [facility] Address [address] [place] [address] Care Team Providers Care Ship Rigger Apprentice Name Role Phone Shabbir White MD Primary Care Prov ider Kasia Maldonado MD Unavailable [phone] Gera Patricio MD Unavailable Miscellaneous, Not In File Unavailable Unava ilable Encounters Date Type Department Care Team Description 02/10/2025 Orders Only [facility] Surgery [address] [place] [address] [address] [place] [address] Jordan Escalera NP 02/10/2025 10:05 AM CDT Lab [address] [address] Coronary artery disease 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 02/10/2025 9:30 AM CDT Office Visit [facility] Surgery [address] [place] [address] [address] [place] [address] Jordan Escalera NP 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, unspecified vessel or lesion type (Primary Dx) 02/07/2025 Orders Only [facility] Surgery [address] [place] [address] [address] [place] [address] Jordan Escalera NP Coronary artery disease 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 (Primary Dx) 02/07/2025 Documentation [facility] Surgery [address] [place] [address] [address] [place] [address] Jordan Escalera NP 02/04/2025 1:51 PM CDT - 02/04/2025 11:59 PM CDT Hospital Encounter [facility] Diagnostic Imaging [address] [place] [address] Coronary artery disease 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 Discharge Disposition: Discharge to home or self care 02/04/2025 Orders Only [facility] Surgery [address] [place] [address] [address] [place] [phone] Jordan Escalera NP 02/04/2025 Orders Only [facility] Surgery [address] [place] [address] [address] [place] [phone] Jordan Escalera NP Coronary artery disease 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 (Primary Dx) 02/04/2025 10:25 AM CDT Lab [facility] Lab [address] [place] [address] 02/04/2025 10:10 AM CDT Lab [facility] Lab [address] [place] [address] Burning with urination 02/04/2025 Orders Only [facility] Surgery [address] [place] [phone] Jordan Escalera NP Burning with urination (Primary Dx) 02/03/2025 Documentation [facility] Surgery [address] [place] [address] [address] [place] [phone] Rabia Becerra NP 02/02/2025 [facility] Post Discharge Follow up phone call [address] [address] Evangelina Khan 01/31/2025 Telephone [facility] Medical Group Cardiology [address] [place] [address] [place] [phone] Alaina Henderson NP 01/26/2025 7:23 AM CDT - 01/31/2025 4:56 PM CDT Hospital Encounter [address] [address] Kasia Maldonado MD 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 (Primary Dx); 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; 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, unspecified vessel or lesion type Discharge Disposition: Discharge to home, home health skilled care 01/26/2025 9:35 AM CDT - 01/26/2025 2:35 PM CDT Surgery [facility] Operating Room [address] [place] [address] Kasia Maldonado MD CABG X 4 with LEFT AND RIGHT INTERNAL MAMMARY ARTERY HARVEST AND RIGHT LEG ENDOVEIN HARVEST 01/26/2025 8:55 AM CDT Anesthesia Event [facility] Operating Room [address] [place] [address] José Manuel Torres MD Eldin, Ali S., MD 01/24/2025 Documentation [facility] Surgery [address] [facility] [address] [place] [phone] Jordan Escalera NP 01/24/2025 11:16 AM CDT - 01/24/2025 11:59 PM CDT Hospital Encounter [facility] Diagnostic Imaging [address] [place] [address] Discharge Disposition: Discharge to home or self care 01/24/2025 10:45 AM CDT Pre-Admission Testing [facility] Pre Anesthesia Testing [address] [place] [address] 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, unspecified vessel or lesion type 01/20/2025 Telephone [facility] Medical Group Cardiology [address] [facility] [address] [place] [address] Anabell Saini MD 01/20/2025 10:00 AM CDT - 01/20/2025 11:30 AM CDT Surgery [facility] Cardiac Catheterization Lab [address] [place] [address] Anabell Saini MD LEFT HEART CATHETERIZATION WITH CORONARY ANGIOGRAPHY AND WITH OR WITHOUT LEFT VENTRICULOGRAM [id number] 01/20/2025 7:35 AM CDT - 01/20/2025 2:21 PM CDT Hospital Encounter [facility] Cardiac Catheterization Lab [address] [place] [address] Anabell Saini MD Other chest pain Discharge Disposition: Discharge to home or self care 01/13/2025 Telephone [facility] Cardiology [address] [place] [phone] Gera Patricio MD 01/12/2025 Results Follow-Up [facility] Cardiology [address] [facility] [address] [place] [phone] Gera Patricio MD Atypical chest pain (Primary Dx) 01/12/2025 Telephone [facility] Cardiology [address] [facility] [address] [place] [address] Gera Patricio MD 01/12/2025 1:35 PM CDT - 01/12/2025 11:59 PM CDT Hospital Encounter [facility] Imaging [address] [place] [address] Atypical chest pain; History of atrial fibrillation; History of PSVT (paroxysmal supraventricular tachycardia); Essential hypertension Discharge Disposition: Discharge to home or self care 01/10/2025 Telephone [facility] Imaging [address] [place] [address] Esthela Perdomo RN 12/15/2024 2:00 PM TAFE REGISTRAR Office Visit [facility] Cardiology at [address] [place] [phone] Gera Patricio MD Atypical chest pain (Primary Dx); History of atrial fibrillation; History of PSVT (paroxysmal supraventricular tachycardia); Essential hypertension; Hyperlipidemia, unspecified hyperlipidemia type from Last 3 Months Allergies No known active allergies Medications finasteride [...] 30 tablet 11 01/13/20 25 026 Active Additional Information Patient taking differently:20 [...] route every day 0 0 09/21/20 15 025 Discontin ued(Stop Taking at Discharge ) acetaminophen-code ine (TYLENOL with CODEINE #3) 300-30 mg per tablet Take 1 tablet by mouth every 6 (six) hours as needed 07/14/20 18 025 Discontin ued(Stop Taking at Discharge ) ibuprofen (ibuprofen) 200 mg tab/cap Take 2 tablet/capsule (400 mg total) by mouth 2 (two) times a day as needed 025 Discontin ued(Stop Taking at Discharge ) furosemide (LASIX) 40 mg tablet Take 1 tablet (40 mg total) by mouth daily for 7 days 7 tablet 02/02/20 25 025 Discontin ued(Alter brianne therapy) potassium [...] now. Assessment & Plan (09/09/2023 1:08 PM TAFE REGISTRAR): 2/2 RK OU, patient having issues with I/R and having other health issues Would like to return lenses and try again at another time. Will return [place] lenses and RTC for refit in future [...] next exam OS RTC for dispense reF# [id number] Assessment & Plan (05/23/2023 4:00 PM CDT): 2/2 RK OU, possible OHx of amblyopia OD; patient states that OD (even prior to RK) has never seen as well as OS Educated patient on options, corneal GP (would need reverse kate design) vs scleral Patient concerned about dryness and comfort, will go ahead with scleral fit today Today with T[place]ont 16.0, excellent comfort OU: OD: 450um central, minimal limbal. Slighlt toe impingement 360, better periphery with flat lens OS: 450um central, minimal limbal. Slight toe impitngement 360, better periphery with flat and better vision with FSE2 Flat periphery / FSE2 / aim for 280um central clearance with adjustments today BCVA 20/30- OD; 20/25-- OS RTC for dispense Ref# [id number] Assessment & Plan (12/11/2022 4:19 PM TAFE REGISTRAR): Patient is s/p 1 cut RK OU and has to change between several pairs of glasses through the day due to fluctuations in refractive error. Pt has been told about scleral lenses in the past and is interested in trying them. Will consult with Dr. Rivera and schedule and evaluation. Retinal drusen of both eyes 06/05/2022 Assessment & Plan (12/11/2022 4:19 PM TAFE REGISTRAR): Mild and stable. F/u annually. Assessment & [...] CPM. Assessment & Plan (11/28/2021 1:23 PM TAFE REGISTRAR): Continue ATs prn. Assessment & Plan (05/30/2021 2:28 PM CDT): PF ATs prn. Assessment & Plan (01/31/2021 1:46 PM CDT): Well controlled with artificial tears. CPM Assessment & Plan (12/13/2020 1:16 PM TAFE REGISTRAR): Pt feels his symptoms are well controlled [...] 10/26/2019 Assessment & Plan (10/29/2019 7:17 PM TAFE REGISTRAR): Chest pain is atypical in that it occurs only sometimes in his in various locations of his chest. I am suspicious that it is musculoskeletal, but would recommend a stress test. As his EKG is normal, imaging is not required. Biceps tendinitis of right upper extremity 11/25 Overview (11/25/2018): Added automatically from request for surgery [id number] Incomplete tear of right rotator cuff 11/25/2018 Overview (11/25/2018): Added automatically from request for surgery [id number] Open angle with borderline f indings and [...] ck. Assessment & Plan (12/11/2022 4:18 PM TAFE REGISTRAR): Mild OAG vs suspect. Started on tx [...] ck. Assessment & Plan (11/28/2021 1:23 PM TAFE REGISTRAR): Mild OAG vs suspect. IOP well controlled [...] irritation. Assessment & Plan (12/13/2020 1:21 PM TAFE REGISTRAR): IOP stable on 1 class. Travatan is [...] OU Assessment & Plan (12/11/2022 4:19 PM TAFE REGISTRAR): S/p RK OU Assessment & Plan (06/05/2022 3:57 PM CDT): S/p 16 incision RK. Stable. Observe. Assessment & Plan (11/28/2021 1:23 PM TAFE REGISTRAR): S/p 16 incision RK OU Assessment & [...] = 0.6 oz pur e alcohol) nightly [facility] Utilities Answer Date Recorded In the past 12 months has e electric, gas, oil, or water [employer] threatened to shut off services in your [...] week 01/31/2025 How often do you attend [facility] or hinduism services? Never 01/31/2025 Do you belong to any clubs o r organizations such as orthodoxy groups, unions, fraternal or athletic groups, or [...] any time in the past 12 [facility], were you homeless or living in a retirement (including now)? No 01/31/2025 Personal Safety Answer Date Recorded Have you ever been in or are you currently in a harmful physical or emotional relationship or is someone making you feel afraid or unsafe? Denies 01/26/2025 Sex and Gender Information Value Date Recorded Sex Assigned at Not on file Legal Sex Male 2:36 AM TAFE REGISTRAR Gender Identity Not on file Sexual Orientation [...] 02/10/2025 10:00 AM CDT Plan of Treatment Not on file Medical Devices Implanted Type Area Pole Incisor Operator Device Identifier Shelf Expiration Date Model / Serial / Lot [employer] Plate Bone Low Profile 4 Hole Box Sternum Ti 115.103.04 - [id number] Implanted:Qty: 1 on 01/26/2025 by Kasia Maldonado MD at [facility] Plate N/A: Sternum [employer] 115.103.04 / / [employer] Plate Bone Low Profile 6 Hole H Shape Sternum Ti 115.102.06 - [id number] Implanted:Qty: 1 on 01/26/2025 by Kasia Maldonado MD at [facility] Plate N/A: Sternum [employer] 115.102.06 / / [employer] Plate Bone Low Profile 6 Hole O Shape Sternum Ti 115.104.06 - [id number] Implanted:Qty: 1 on 01/26/2025 by Kasia Maldonado MD at [facility] Plate N/A: Sternum [employer] 115.104.06 / / [employer] Screw Bone Slf Drl Full Thread Locking 3.5x18mm Ti 100.035.18 - [id number] Implanted:Qty: 16 on 01/26/2025 by Kasia Maldonado MD at [facility] Screw N/A: Sternum [employer] 100.035.18 / / Procedures Procedure Name Priority Date/Time Associated Diagnosis Comments EGFR Routine 02/10/2025 10:33 AM CDT Coronary artery disease 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 CBC WITHOUT DIFFERENTIAL Routine 02/10/2025 10:33 AM CDT Coronary artery disease 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 COMPREHENSIVE METABOLIC PANEL Routine 02/10/2025 10:33 AM CDT Coronary artery disease 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 XR CHEST PA LATERAL 2 VIEWS Schedule Routine, Read Routine (OP Routine) 02/04/2025 1:58 PM CDT Coronary artery disease 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 EGFR Routine 02/04/2025 [...] 4:27 PM CDT 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 POCT GLUCOSE [...] 5:45 PM CDT 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 POCT GLUCOSE [...] LINE PLACEMENT Routine 01/26/2025 9:33 AM CDT MD AN ELECTIVE ENDOTRACHEAL AIRWAY Routine 01/26/2025 9:32 AM CDT ANESTHESIA ARTERIAL LINE PLACEMENT Routine 01/26/2025 9:31 AM CDT POC BLOOD GAS AND CHEMISTRIES, ARTERIAL Routine 01/26/2025 9:24 AM CDT POCT ACTIVATED CLOTTING TIME, HIGH RANGE Routine 01/26/2025 9:22 AM CDT EXPLORATION CHEST 01/26/2025 8:55 AM CDT 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, unspecified vessel or lesion type CORONARY ARTERY BYPASS GRAFT - INTERNAL MAMMARY ARTERY 01/26/2025 8:55 AM CDT 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, unspecified vessel or lesion type B CHECK SAMPLE STAT 01/26/2025 8:20 AM CDT PREPARE RBC STAT 01/26/2025 7:59 AM CDT POCT GLUCOSE DEVICE Routine 01/26/2025 7:43 AM CDT ECG 12-LEAD Routine 01/24/2025 11:43 AM CDT 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, unspecified vessel or lesion type XR CHEST PA LATERAL 2 VIEWS Schedule Routine, Read Routine (OP Routine) 01/24/2025 11:28 AM CDT 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, unspecified vessel or lesion type EGFR Routine 01/24/2025 11:11 AM CDT 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, unspecified vessel or lesion type BASIC METABOLIC PANEL Routine 01/24/2025 11:11 AM CDT 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, unspecified vessel or lesion type PROTIME-INR Routine 01/24/2025 11:11 AM CDT 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, unspecified vessel or lesion type APTT Routine 01/24/2025 11:11 AM CDT 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, unspecified vessel or lesion type CBC WITHOUT DIFFERENTIAL Routine 01/24/2025 11:11 AM CDT 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, unspecified vessel or lesion type TYPE AND SCREEN Routine 01/24/2025 11:11 AM CDT 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, unspecified vessel or lesion type URINALYSIS AND REFLEX TO MICROSCOPIC AND CULTURE Routine 01/24/2025 11:11 AM CDT 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, unspecified vessel [...] POCT LIPID PANEL Routine 12/15/2024 2:28 PM TAFE REGISTRAR Essential hypertension ELECTROCARDIOGRAM REPORT Routine 12/15/2024 8:17 AM TAFE REGISTRAR Atypical chest pain History of PSVT (paroxysmal [...] Escalera NP LAB BLOOD ORDERABLES Final Result [facility] [address] Department [place] [address] * (ABNORMAL) CBC without differential (02/10/2025 10:33 AM CDT) WBC 13.51(H) 3.80 - 9.90 K/cumm Hgb 9.7(L) 13.0 - 17.5 g/dL [facility] Hct 30.4(L) 38.9 - 50.3 % [facility] Plt 689(H) 150 - 400 K/cumm [facility] MPV 8.9(L) 9.1 - 12.3 fL [facility] RBC 3.14(L) 4.30 - 5.80 M/cumm [facility] MCV 96.8(H) 81.3 - 96.4 fL [facility] MCH 30.9 27.1 - 33.3 pg [facility] MCHC 31.9(L) 32.3 - 35.7 g/dL [facility] RDW CV 14.4 11.1 - 14.9 % [facility] RDW SD 50.6(H) 35.7 - 48.1 fL [facility] NRBC abs 0.00 0.00 - 0.01 K/cumm [facility] Blood 02/10/2025 10:3 3 AM CDT 02/10/2025 2:16 PM CDT Jordan Escalera NP LAB BLO[place] [address] Department [place] [address] * (ABNORMAL) Comprehensive metabolic panel (02/10/2025 10:33 AM CDT) Sodium 133(L) 135 - 145 mmol/L Potassium, pl 4.1 3.3 - 4.9 mmol/L [facility] Chloride 97 97 - 110 mmol/L [facility] CO2 25 22 - 32 mmol/L [facility] Anion gap 11 2 - 15 mmol/L [facility] BUN 16 6 - 25 mg/dL [facility] Creatinine 1.12 0.80 - 1.30 mg/dL [facility] Glucose 107 70 - 199 mg/dL [facility] Comment: [...] 02/10/2025 2:16 PM CDT us Jordan Escalera CONSULTING NETWORKING ENGINEER LAB BLOOD ORDERABLES Final Result [facility] [address] Department [place] [address] * X-ray chest 2 views (02/04/2025 1:58 [...] 7:36 PM - Electronically signed by Hollis Gonzalez M.D. MJ: ANYA Report ID: [id number] Reading Location: [id number] Procedure Note Hollis Gonzalez MD - 02/05/2025 [...] 7:36 PM - Electronically signed by Hollis Gonzalez M.D. MJ: ANYA Report ID: [id number] Reading Location: [id number] us Jordan Escalera CONSULTING NETWORKING ENGINEER IMG XR PROCEDURES Final Res ult * [...] was last reviewed 2021. Testing performed by: [address] [address] Blood 02/04/2025 10:3 3 AM CDT 02/04/2025 11:17 AM CDT us Jordan Escalera NP LAB BLOOD ORDERABLES Final Result [facility] Department [place] [address] * (ABNORMAL) Differential, auto (02/04/2025 10:33 AM CDT) Neutrophil abs 10.94(H) 1.50 - 6.50 K/cumm Comment:Testing performed by : [address] [address] Imm gran abs 0.25(H) 0.00 - 0.10 K/cumm AYAKA Comment:Testing performed by : [address] [address] Lymphocyte abs 1.77 0.80 - 3.30 K/cumm AYAKA Comment:Testing performed by : [address] [address] Monocyte abs 1.58(H) 0.20 - 0.80 K/cumm AYAKA Comment:Testing performed by : [address] [address] Eosinophil abs 0.27 0.00 - 0.50 K/cumm AYAKA Comment:Testing performed by : [address] [address] Basophil abs 0.09 0.00 - 0.10 K/cumm AYAKA Comment:Testing performed by : [address] [address] Neutrophil pct 73.4 % [facility] Comment: Interpretive Data Percent cell count reference ranges are not reported, since discordance with absolute values may lead to misinterpretation of CBC data. Current Interpretive Data was last revised on 2018. Testing performed by: [address] [address] Imm gran pct 1.7 % [facility] Comment: Interpretive Data Percent cell count reference ranges are not reported, since discordance with absolute values may lead to misinterpretation of CBC data. Current Interpretive Data was last revised on 2018. Testing performed by: [address] [address] Lymphocyte pct 11.9 % [facility] Comment: Interpretive Data Percent cell count reference ranges are not reported, since discordance with absolute values may lead to misinterpretation of CBC data. Current Interpretive Data was last revised on 2018. Testing performed by: [address] [address] Monocyte pct 10.6 % [facility] Comment: Interpretive Data Percent cell count reference ranges are not reported, since discordance with absolute values may lead to misinterpretation of CBC data. Current Interpretive Data was last revised on 2018. Testing performed by: [address] [address] Eosinophil pct 1.8 % [facility] Comment: Interpretive Data Percent cell count reference ranges are not reported, since discordance with absolute values may lead to misinterpretation of CBC data. Current Interpretive Data was last revised on 2018. Testing performed by: [address] [address] Basophil pct 0.6 % [facility] Comment: Interpretive Data Percent cell count reference ranges are not reported, since discordance with absolute values may lead to misinterpretation of CBC data. Current Interpretive Data was last revised on 2018. Testing performed by: [address] [address] Blood 02/04/2025 10:3 3 AM CDT 02/04/2025 11:19 AM CDT us Jordan Escalera CONSULTING NETWORKING ENGINEER LAB BLOOD ORDERABLES Final Result [facility] [address] [facility] Department [place] [address] * Urinalysis reflex to microscopic and culture Urine, clean voided (02/04/2025 10:33 AM CDT) Color, ur Straw Yellow Comment:Testing performed by : [address] [address] Clarity, ur Clear Clear AYAKA ALVAREZ Comment:Testing performed by : [address] [address] Specific gravity, ur 1.010 1.003 - 1.030 [facility]A ALVAREZ Comment:Testing performed by : [address] [address] pH, urine 6.5 A[facility] Comment: Interpretive Data U rine pH is affected by diet, medications, systemic acid-base disturbances, and renal tubular function. pH may affect urinary stone formation. For example, urine pH below 6.0 may help reduce the tendency for calcium phosphate stones and pH greater than 6.0 may reduce the tendency for uric acid stone formation. Source: [facility] Current Interpretive Data was last revised on 2017 Testing performed by: [address] [address] Protein, ur ql Negative Negative AYAKA ALVAREZ Comment:Testing performed by : [address] [address] Glucose, ur ql Negative Negative AYAKA ALVAREZ Comment:Testing performed by : [address] [address] Ketones, ur Negative Negative AYAKA ALVAREZ Comment:Testing performed by : [address] [address] Bilirubin, ur Negative Negative AYAKA ALVAREZ Comment:Testing performed by : [address] [address] Blood, ur Negative Negative AYAKA ALVAREZ Comment:Testing performed by : [address] [address] Urobilinogen, ur <2.0 <2.0 mg/dL [facility]A Comment:Testing performed by : [address] [address] Nitrite, ur Negative Negative AYAKA ALVAREZ Comment:Testing performed by : [address] [address] Leukocyte esterase, ur Negative Negative AYAKA ALVAREZ Comment:Testing performed by : [address] [address] UA reflex comment Reflex conditions for microscopic UA and culture not met. AYAKA ALVAREZ Comment:Testing performed by : [address], [place]., [address] Urine, clean voided 02/04/2025 10:33 AM CDT 02/04/2025 11:37 AM CDT us Jordan Escalera NP LAB MICROBIOLOGY - GENERAL ORDERABLES Final Result [facility] [address] [facility] Department [place] [address] * (ABNORMAL) CBC with auto differential (02/04/2025 10:33 AM CDT) WBC 14.90(H) 3.80 - 9.90 K/cumm Comment:Testing performed by : [address] [address] Hgb 8.9(L) 13.0 - 17.5 g/dL [facility] ALVAREZ Comment:Testing performed by : [address] [address] Hct 27.4(L) 38.9 - 50.3 % [facility] ALVARE[facility] Comment:Testing performed by : [address] [address] Plt 483(H) 150 - 400 K/cumm [facility]YAKA ALVAREZ Comment:Testing performed by : [address] [address] MPV 9.4 9.1 - 12.3 fL [facility] ALVAREZ Comment:Testing performed by : [address] [address] RBC 2.88(L) 4.30 - 5.80 M/cumm AYAKA ALVAREZ Comment:Testing performed by : [address], [address] MCV 95.1 81.3 - 96.4 fL [facility]A ALVAREZ Comment:Testing performed by : [address] [address] MCH 30.9 27.1 - 33.3 pg AYAKA Comment:Testing performed by : [address], [address] MCHC 32.5 32.3 - 35.7 g/dL [facility] Comment:Testing performed by : [address], [address] RDW CV 14.1 11.1 - 14.9 % [facility]A Comment:Testing performed by : [address], [address] RDW SD 48.6(H) 35.7 - 48.1 fL [facility] Comment:Testing performed by : [address], [address] NRBC abs 0.00 0.00 - 0.01 K/cumm AYAKA Comment:Testing performed by : [address], [address] Blood 02/04/2025 10:3 3 AM CDT 02/04/2025 11:19 AM CDT us Jordan Escalera CONSULTING NETWORKING ENGINEER LAB BLOOD ORDERABLES Final Result [facility] [address] [facility] [facility] [place] [address] * (ABNORMAL) Comprehensive metabolic panel (02/04/2025 10:33 AM CDT) Sodium 130(L) 135 - 145 mmol/L Comment:Testing performed by : [address], [address] Potassium, pl 4.6 3.3 - 4.9 mmol/L AYAKA Comment:Testing performed by : [address], [place]., [address] Chloride 96(L) 97 - 110 mmol/L AYAKA Comment:Testing performed by : [address], [place]., [address] CO2 24 22 - 32 mmol/L AYAKA Comment:Testing performed by : [address], [place]., [address] Anion gap 10 2 - 15 mmol/L AYAKA Comment:Testing performed by : [address], [place]., [address] BUN 29(H) 6 - 25 mg/dL [facility] Comment:Testing performed by : [address], [place]., [address] Creatinine 1.02 0.80 - 1.30 mg/dL AYAKA Comment:Testing performed by : [address], [place]., [address] Glucose 204(H) 70 - 199 mg/dL [facility] Comment: Interpretive Data Fasting glucose >/= 126 [...] was last revised 2022. Testing performed by: [address] [address] Calcium 9.0 8.5 - 10.3 mg/dL AYAKA Comment:Testing performed by : [address] [address] Bilirubin, total 0.4 0.1 - 1.2 mg/dL AYAKA Comment:Testing performed by : [address] [address] Protein, pl 6.8 6.5 - 8.5 g/dL AYAKA Comment:Testing performed by : [address] [address] Albumin 3.4(L) 3.5 - 5.0 g/dL AYAKA Comment:Testing performed by : [address] [address] Alk phos 78 40 - 130 Units/L AYAKA Comment:Testing performed by : [address] [address] ALT 23 7 - 55 Units/L AYAKA Comment:Testing performed by : [address] [address] AST 30 10 - 50 Units/L AYAKA Comment:Testing performed by : [address] [address] Blood 02/04/2025 10:3 3 AM CDT 02/04/2025 11:17 AM CDT us Jordan Escalera NP LAB BLOOD ORDERABLES Final Result AYAKA [facility] Department [place] [address] * eGFR (01/31/2025 6:15 AM CDT) eGFR [...] ORDERABLES Final Res ult Performing Organization Address [facility] Co de Phone Number [facility] [address] [facility] [place] [address] * (ABNORMAL) aPTT (01/31/2025 6:15 AM CDT) aPTT 27(L) 28 - 38 sec Comment: Interpretive Data Heparin therapeutic range: 66.0 - 100.0 seconds. Range based on correlation with therapeutic heparin activity range of 0.3 - 0.7 Units/mL. Current interpretive data was last revised on 2023. Blood 01/31/2025 6:15 AM CDT 01/31/2025 6:40 AM CDT Rabia Becerra NP LAB BLOOD ORDERABLES Gale l Result Performing Organization Address [facility] de Phone Number [facility] [address] [facility] [place] [address] * Protime-INR (01/31/2025 6:15 AM CDT) PT 12.9 9.7 - 13.0 sec INR 1.19 0.90 - 1.20 [facility] Comment: Interpretive data Oral anticoagulant therapeutic ranges: Venous thromboembolism prophylaxis or treatment: 2.0-3.0 CARDIOLOGY Standard range: 2.0-3.0 High-intensity range: 2.5-3.5 Refer to indication-specific guidelines for appropriate target ranges for prosthetic heart valve replacement. Current interpretive data was last revised on 2019. Blood 01/31/2025 6:15 AM CDT 01/31/2025 6:40 AM CDT Rabia Becerra CONSULTING NETWORKING ENGINEER LAB BLOOD ORDERABLES Gale l Result Performing Organization Address [facility]/ZIP Co de Phone Number AYAKA HARRIS [address] Department [place] [address] * (ABNORMAL) CBC without differential (01/31/2025 6:15 AM CDT) WBC 10.85(H) 3.80 - 9.90 K/cumm Hgb 8.4(L) 13.0 - 17.5 g/dL [facility] Hct 25.2(L) 38.9 - 50.3 % [facility] Plt 222 150 - 400 K/cumm [facility] MPV 9.5 9.1 - 12.3 fL [facility] RBC 2.65(L) 4.30 - 5.80 M/cumm [facility] MCV 95.1 81.3 - 96.4 fL [facility] MCH 31.7 27.1 - 33.3 pg [facility] MCHC 33.3 32.3 - 35.7 g/dL [facility] RDW CV 13.8 11.1 - 14.9 % [facility] RDW SD 48.1 35.7 - 48.1 fL [facility] NRBC abs 0.00 0.00 - 0.01 K/cumm [facility] Blood 01/31/2025 6:15 AM CDT 01/31/2025 6:40 AM CDT us Kasia Maldonado MD LAB BLOOD ORDERABLES Final Res ult Performing Organization Address [facility]/ZIP Co de Phone Number AYAKA [address] Department [place] [address] * (ABNORMAL) Basic metabolic panel (01/31/2025 6:15 AM CDT) Sodium 133(L) 135 - 145 mmol/L Potassium, pl 4.1 3.3 - 4.9 mmol/L [facility] Chloride 98 97 - 110 mmol/L [facility] CO2 27 22 - 32 mmol/L [facility] Anion gap 8 2 - 15 mmol/L [facility] BUN 25 6 - 25 mg/dL [facility] Creatinine 0.86 0.80 - 1.30 mg/dL [facility] Glucose 103 70 - 199 mg/dL AYAKA HARRIS Comment: Interpretive Data Fasting glucose >/= 126 [...] 2022. Calcium 8.4(L) 8.5 - 10.3 mg/dL AYAKA HARRIS Blood 01/31/2025 6:15 AM CDT 01/31/2025 6:40 AM CDT Kasia Maldonado MD LAB BLOOD ORDERABLES Final Res ult AYAKA [address] Department [place] [address] * XR Chest 1 View - Portable [...] active infiltrate. The tip of the retracted Dorrance-Karis catheter is in the distal superior vena cava. Procedure Note Matthew More MD - 01/31/2025 EXAMINATION: XR CHEST 1 VIEW HISTORY: The patient is a 74-year-old male who has had cardiac surgery. Comparison made with the previous study dated 01/30/2025. TECHNIQUE: AP portable view of the chest. FINDINGS: Cardiomegaly with aortic atherosclerosis. No failure. No active infiltrate. The tip of the retracted Dorrance-Karis catheter is in the distal superior vena cava. IMPRESSION: No failure. Electronically signed by: Matthew More M.D. Kasia Maldonado MD IM XR PROCEDURES Final Result * XR Chest [...] infiltrate. The distal tip of a retracted Dorrance-Karis catheter is in the distal superior vena cava. Procedure Note Matthew More MD - 01/30/2025 EXAMINATION: XR CHEST 1 VIEW HISTORY: The patient is a 74-year-old male who has had cardiac surgery. Comparison made with the previous study dated 01/29/2025 TECHNIQUE: AP portable view of the chest. FINDINGS: Cardiomegaly with aortic atherosclerosis. No failure. No active infiltrate. The distal tip of a retracted Dorrance-Karis catheter is in the distal superior vena cava. IMPRESSION: No failure. Electronically signed by: Matthew More M.D. us Kasia Maldonado MD [facility] XR PROCEDURES Final Result * eGFR (01/30/2025 [...] 5:00 AM CDT 01/30/2025 5:48 AM CDT us Kaisa Maldonado MD LAB BLOOD ORDERABLES Final Res ult [facility] [address] Department [place] [address] * (ABNORMAL) CBC without differential (01/30/2025 5:00 AM CDT) WBC 12.79(H) 3.80 - 9.90 K/cumm Hgb 8.6(L) 13.0 - 17.5 g/dL [facility] Hct 26.1(L) 38.9 - 50.3 % [facility] Plt 192 150 - 400 K/cumm [facility] MPV 9.7 9.1 - 12.3 fL [facility] RBC 2.73(L) 4.30 - 5.80 M/cumm [facility] MCV 95.6 81.3 - 96.4 fL [facility] MCH 31.5 27.1 - 33.3 pg [facility] MCHC 33.0 32.3 - 35.7 g/dL [facility] RDW CV 13.9 11.1 - 14.9 % [facility] RDW SD 48.7(H) 35.7 - 48.1 fL [facility] NRBC abs 0.00 0.00 - 0.01 K/cumm [facility] Blood 01/30/2025 5:00 AM CDT 01/30/2025 5:33 AM CDT Kasia Maldonado MD LAB BLOOD ORDERABLES Final Res ult [facility] [address] Department [place] [address] * (ABNORMAL) Basic metabolic panel (01/30/2025 5:00 AM CDT) Sodium 132(L) 135 - 145 mmol/L Potassium, pl 4.2 3.3 - 4.9 mmol/L [facility] Chloride 98 97 - 110 mmol/L [facility] CO2 26 22 - 32 mmol/L [facility] Anion gap 8 2 - 15 mmol/L [facility] BUN 30(H) 6 - 25 mg/dL [facility] Creatinine 0.85 0.80 - 1.30 mg/dL [facility] Glucose 113 70 - 199 mg/dL [facility] Comment: Interpretive Data Fasting glucose >/= [...] 2022. Calcium 8.4(L) 8.5 - 10.3 mg/dL [facility] Blood 01/30/2025 5:00 AM CDT 01/30/2025 5:33 AM CDT Kasia Maldonado MD LAB BLOOD ORDERABLES Final Res ult Performing Organization Address [facility]/ZIP Co de Phone Number AYAKA HARRIS [address] [facility] [place] [address] * POCT glucose (01/30/2025 3:39 AM CDT) Glucose, POC 132 70 - 199 mg/dL POC Performer [id number] [facility] Blood 01/30/2025 3:39 AM CDT 01/30/2025 3:39 AM CDT Kasia Maldonado MD LAB POCT ORDERABLES - DEVICE F inal Result Performing Organization Address [facility] Co de Phone Number [facility] [address] [facility] [place] [address] * POCT glucose (01/29/2025 9:27 PM CDT) Glucose, POC 139 70 - 199 mg/dL POC Performer [id number] [facility] Blood 01/29/2025 9:27 PM CDT 01/29/2025 9:27 PM CDT Kasia Maldonado MD LAB POCT ORDERABLES - DEVICE F inal Result Performing Organization Address [facility] Co de Phone Number AYAKA KIMBERLY [address] [facility] [place] [address] * POCT glucose (01/29/2025 7:52 AM CDT) Glucose, POC 132 70 - 199 mg/dL POC Performer [id number] [facility] Blood 01/29/2025 7:52 AM CDT 01/29/2025 7:52 AM CDT Kasia Maldonado MD LAB POCT ORDERABLES - DEVICE F inal Result Performing Organization Address [facility] Co de Phone Number [facility] [place] [address] Department [place] [address] * XR Chest 1 View - Portable [...] Result * eGFR (01/29/2025 3:08 AM CDT) eGFR 90 >=60 mL/min/1. 73 m2 Comment: [...] 3:08 AM CDT 01/29/2025 4:51 AM CDT Kasia Maldonado MD LAB BLOOD ORDERABLES Final Res ult Performing Organization Address City/[facility]/ZIP Co de Phone Number AYAKA HARRIS [address] [place] [address] * (ABNORMAL) CBC without differential (01/29/2025 3:08 AM CDT) WBC 15.72(H) 3.80 - 9.90 K/cumm Hgb 8.8(L) 13.0 - 17.5 g/dL [facility] Hct 26.6(L) 38.9 - 50.3 % [facility] Plt 155 150 - 400 K/cumm [facility] MPV 10.2 9.1 - 12.3 fL [facility] RBC 2.80(L) 4.30 - 5.80 M/cumm [facility] MCV 95.0 81.3 - 96.4 fL [facility] MCH 31.4 27.1 - 33.3 pg [facility] MCHC 33.1 32.3 - 35.7 g/dL [facility] RDW CV 14.0 11.1 - 14.9 % [facility] RDW SD 49.0(H) 35.7 - 48.1 fL [facility] NRBC abs 0.00 0.00 - 0.01 K/cumm [facility] Blood 01/29/2025 3:08 AM CDT 01/29/2025 4:52 AM CDT Kasia Maldonado MD LAB BLOOD ORDERABLES Final Res ult AYAKA HARRIS [address] Department [place] [address] * (ABNORMAL) Basic metabolic panel (01/29/2025 3:08 AM CDT) Sodium 138 135 - 145 mmol/L Potassium, pl 3.5 3.3 - 4.9 mmol/L [facility] Chloride 99 97 - 110 mmol/L [facility] CO2 27 22 - 32 mmol/L [facility] Anion gap 12 2 - 15 mmol/L [facility] BUN 28(H) 6 - 25 mg/dL [facility] Creatinine 0.90 0.80 - 1.30 mg/dL [facility] [...] 2022. Calcium 8.4(L) 8.5 - 10.3 mg/dL [facility] Blood 01/29/2025 3:08 AM CDT 01/29/2025 4:51 AM CDT Kasia Maldonado MD LAB BLOOD ORDERABLES Final Res ult AYAKA [address] [place] [address] * POCT glucose (01/28/2025 9:15 PM CDT) Pathologist [facility] Glucose, POC 175 70 - 199 mg/dL POC Performer [id number] [facility] Blood 01/28/2025 9:15 PM CDT 01/28/2025 9:15 PM CDT Kasia Maldonado MD LAB POCT ORDERABLES - DEVICE F inal Result Performing Organization Address [facility] de Phone Number AYAKA HARRIS [address] [facility] [place] [address] * ECG 12 lead (01/28/2025 5:33 PM CDT) 01/28/2025 5:33 PM CDT Narrative [facility] - 01/29/2025 6:50 AM CDT Vent Rate: 119 bpm RR Interval: 503 msec MD Interval: 0 msec QRS Duration: 93 msec QT Interval: 318 msec QTC Interval: 389 msec P-R-T [place]: 0 - -9 - 8 degrees IMPRESSION: ATRIAL FIBRILLATION WITH RAPID VENTRICULAR RESPONSE LOW QRS VOLTAGE IN PRECORDIAL LEADS ABNORMAL RHYTHM ECG Electronically Signed By: Dr. Rivas Lehman [facility] Kasia Maldonado MD ECG ORDERABLES Final Result Performing Organization Address [facility] de Phone Number [facility] * POCT glucose (01/28/2025 4:30 PM CDT) [facility] Signature Glucose, POC 145 70 - 199 mg/dL POC Performer [id number] [facility] Blood 01/28/2025 4:30 PM CDT 01/28/2025 4:30 PM CDT Kasia Maldonado MD LAB POCT ORDERABLES - DEVICE F inal Result Performing Organization Address [facility] de Phone Number AYAKA HARRIS [address] [place] [address] * Critical Care (01/28/2025 4:27 PM CDT) Narrative Hollis Phillips MD - 01/28/2025 4:27 PM CDT Hollis Phillips MD 01/28/2025 4:40 PM Critical Care Performed by: Hollis Phillips MD Authorized by: Hollis Phillips MD CRITICAL CARE: Team: LUZ MARINA Shift: AM Level of Billing: Critical Care [...] plan with the ICU team and other medical/senior staff consultant staff, making frequent assessments and decisions [...] * POCT glucose (01/28/2025 11:40 AM CDT) Glucose, POC 145 70 - 199 mg/dL POC Performer [id number] [facility] Blood 01/28/2025 11:4 0 AM CDT 01/28/2025 11:40 AM CDT Kasia Maldonado MD LAB POCT ORDERABLES - DEVICE F inal Result AYAKA [address] [place] [address] * POCT glucose (01/28/2025 6:50 AM CDT) Glucose, POC 105 70 - 199 mg/dL POC Performer [id number] [facility] Blood 01/28/2025 6:50 AM CDT 01/28/2025 6:50 AM CDT Kasia Maldonado MD LAB POCT ORDERABLES - DEVICE F inal Result Performing Organization Address City/[facility]/ZIP Co de Phone Number AYAKA HARRIS [address] [place] [address] * POCT glucose (01/28/2025 5:44 AM CDT) Glucose, POC 117 70 - 199 mg/dL POC Performer [id number] AYAKA Blood 01/28/2025 5:44 AM CDT 01/28/2025 5:44 AM CDT Kasia Maldonado MD LAB POCT ORDERABLES - DEVICE F inal Result Performing Organization Address [facility] Co de Phone Number AYAKA HARRIS [address] [place] [address] * XR Chest 1 View - Portable [...] in place. The tip of a retracted Dorrance-Karis catheter is in the superior vena cava. [...] in place. The tip of a retracted Dorrance-Karis catheter is in the superior vena cava. [...] ORDERABLES Final Res ult Performing Organization Address City/[facility] Co de Phone Number AYAKA KIMBERLY [address] [place] [address] * (ABNORMAL) Calcium, ionized, whole blood (01/28/2025 4:37 AM CDT) Ca, ionized, bld 4.33(L) 4.50 - 5.10 mg/dL Blood 01/28/2025 4:37 AM CDT 01/28/2025 4:44 AM CDT Kasia Maldonado MD LAB [place]LOOD [place] [address] [address] [place] [address] * eGFR (01/28/2025 4:37 AM CDT) eGFR [...] 4:37 AM CDT 01/28/2025 4:45 AM CDT us Kasia Maldonado MD LAB BLOOD ORDERABLES Final Res ult [facility] [address] [place] [address] * (ABNORMAL) CBC without differential (01/28/2025 4:37 AM CDT) WBC 17.78(H) 3.80 - 9.90 K/cumm Hgb 8.8(L) 13.0 - 17.5 g/dL [facility] Hct 26.6(L) 38.9 - 50.3 % [facility] Plt 126(L) 150 - 400 K/cumm [facility] MPV 9.8 9.1 - 12.3 fL [facility] RBC 2.81(L) 4.30 - 5.80 M/cumm [facility] MCV 94.7 81.3 - 96.4 fL [facility] MCH 31.3 27.1 - 33.3 pg [facility] MCHC 33.1 32.3 - 35.7 g/dL [facility] RDW CV 14.3 11.1 - 14.9 % [facility] RDW SD 49.4(H) 35.7 - 48.1 fL [facility] NRBC abs 0.00 0.00 - 0.01 K/cumm [facility] Blood 01/28/2025 4:37 AM CDT 01/28/2025 4:45 AM CDT Kasia Maldonado MD LAB BLOOD ORDERABLES Final Res ult Performing Organization Address City/[facility]/ZIP Co de Phone Number AYAKA [address] [place] [address] * Magnesium (01/28/2025 4:37 AM CDT) Pathologist [facility] Magnesium 2.1 1.4 - 2.5 mg/dL Blood 01/28/2025 4:37 AM CDT 01/28/2025 4:45 AM CDT Kasia Maldonado MD LAB BLOOD ORDERABLES Final Res ult Performing Organization Address [facility] de Phone Number [facility] [address] [address] [place] [address] * (ABNORMAL) Basic metabolic panel (01/28/2025 4:37 AM CDT) Pathologist [facility] Sodium 136 135 - 145 mmol/L Potassium, pl 3.9 3.3 - 4.9 mmol/L [facility] Chloride 102 97 - 110 mmol/L [facility] CO2 23 22 - 32 mmol/L [facility] Anion gap 11 2 - 15 mmol/L [facility] BUN 22 6 - 25 mg/dL [facility] Creatinine 0.87 0.80 - 1.30 mg/dL [facility] Glucose 114 70 - 199 mg/dL [facility] Comment: Interpretive Data Fasting glucose [...] 2022. Calcium 8.1(L) 8.5 - 10.3 mg/dL [facility] Blood 01/28/2025 4:37 AM CDT 01/28/2025 4:45 AM CDT Kasia Maldonado MD LAB BLOOD ORDERABLES Final Res ult Performing Organization Address [facility] Co de Phone Number AYAKA [address] [address] [facility] [place] [address] * POCT glucose (01/28/2025 4:34 AM CDT) Glucose, POC 120 70 - 199 mg/dL POC Performer [id number] [facility] Blood 01/28/2025 4:34 AM CDT 01/28/2025 4:34 AM CDT Kasia Maldonado MD LAB POCT ORDERABLES - DEVICE F inal Result Performing Organization Address [facility] de Phone Number AYAKA [address] [place] [address] * POCT glucose (01/28/2025 3:34 AM CDT) Glucose, POC 122 70 - 199 mg/dL POC Performer [id number] [facility] Blood 01/28/2025 3:34 AM CDT 01/28/2025 3:34 AM CDT Kasia Maldonado MD LAB POCT ORDERABLES - DEVICE F inal Result Performing Organization Address [facility] Co de Phone Number AYAKA [address] [place] [address] * POCT glucose (01/28/2025 2:36 AM CDT) Glucose, POC 98 70 - 199 mg/dL POC Performer [id number] [facility] Blood 01/28/2025 2:36 AM CDT 01/28/2025 2:36 AM CDT Kasia Maldonado MD LAB POCT ORDERABLES - DEVICE F inal Result Performing Organization Address [facility] Co de Phone Number AYAKA HARRIS [address] [address] [facility] [place] [address] * POCT glucose (01/28/2025 1:23 AM CDT) Glucose, POC 81 70 - 199 mg/dL POC Performer [id number] [facility] Blood 01/28/2025 1:23 AM CDT 01/28/2025 1:23 AM CDT Kasia Maldonado MD LAB POCT ORDERABLES - DEVICE F inal Result Performing Organization Address [facility] de Phone Number AYAKA HARRIS [address] [address] [facility] [place] [address] * POCT glucose (01/28/2025 12:15 AM CDT) Glucose, POC 103 70 - 199 mg/dL POC Performer [id number] [facility] Blood 01/28/2025 12:1 5 AM CDT 01/28/2025 12:15 AM CDT Kasia Maldonado MD LAB POCT ORDERABLES - DEVICE F inal Result Performing Organization Address [facility] de Phone Number AYAKA HARRIS [address] [address] [facility] [place] [address] * POCT glucose (01/27/2025 11:22 PM CDT) Glucose, POC 121 70 - 199 mg/dL POC Performer [id number] [facility] Blood 01/27/2025 11:2 2 PM CDT 01/27/2025 11:22 PM CDT Kasia Maldonado MD LAB POCT ORDERABLES - DEVICE F inal Result Performing Organization Address [facility] Co de Phone Number AYAKA HARRIS [address] [address] [facility] [place] [address] * POCT glucose (01/27/2025 10:19 PM CDT) Glucose, POC 129 70 - 199 mg/dL POC Performer [id number] [facility] Blood 01/27/2025 10:1 9 PM CDT 01/27/2025 10:19 PM CDT Kasia Maldonado MD LAB POCT ORDERABLES - DEVICE F inal Result Performing Organization Address [facility] Co de Phone Number AYAKA HARRIS [address] [address] [facility] [place] [address] * POCT glucose (01/27/2025 9:15 PM CDT) Glucose, POC 87 70 - 199 mg/dL POC Performer [id number] [facility] Blood 01/27/2025 9:15 PM CDT 01/27/2025 9:15 PM CDT Kasia Maldonado MD LAB POCT ORDERABLES - DEVICE F inal Result Performing Organization Address City/[facility] Co de Phone Number AYAKA HARRIS [address] [address] [facility] [place] [address] * POCT glucose (01/27/2025 8:04 PM CDT) Glucose, POC 116 70 - 199 mg/dL POC Performer [id number] [facility] Blood 01/27/2025 8:04 PM CDT 01/27/2025 8:04 PM CDT Kasia Maldonado MD LAB POCT ORDERABLES - DEVICE F inal Result AYAKA HARRIS [address] [place] [address] * POCT glucose (01/27/2025 7:12 PM CDT) Glucose, POC 138 70 - 199 mg/dL POC Performer [id number] [facility] Blood 01/27/2025 7:12 PM CDT 01/27/2025 7:12 PM CDT Kasia Maldonado MD LAB POCT ORDERABLES - DEVICE F inal Result Performing Organization Address City/[facility]/ZIP Co de Phone Number AYAKA HARRIS [address] [place] [address] * eGFR (01/27/2025 6:53 PM CDT) eGFR [...] ORDERABLES Final Res ult Performing Organization Address City/[facility]/ZIP Co de Phone Number AYAKA [address] [place] [address] * (ABNORMAL) CBC without differential (01/27/2025 6:53 PM CDT) WBC 17.49(H) 3.80 - 9.90 K/cumm Hgb 9.1(L) 13.0 - 17.5 g/dL [facility] Hct 27.3(L) 38.9 - 50.3 % [facility] Plt 128(L) 150 - 400 K/cumm [facility] MPV 9.5 9.1 - 12.3 fL [facility] RBC 2.89(L) 4.30 - 5.80 M/cumm [facility] MCV 94.5 81.3 - 96.4 fL [facility] MCH 31.5 27.1 - 33.3 pg [facility] MCHC 33.3 32.3 - 35.7 g/dL [facility] RDW CV 14.2 11.1 - 14.9 % [facility] RDW SD 48.1 35.7 - 48.1 fL [facility] NRBC abs 0.00 0.00 - 0.01 K/cumm [facility] Blood 01/27/2025 6:5 3 PM CDT 01/27/2025 6:59 PM CDT Kasia Maldonado MD LAB BLOOD ORDERABLES Final Res ult [facility] [address] [place] [address] * (ABNORMAL) Basic metabolic panel (01/27/2025 6:53 PM CDT) Sodium 138 135 - 145 mmol/L Potassium, pl 3.2(L) 3.3 - 4.9 mmol/L [facility] Chloride 103 97 - 110 mmol/L [facility] CO2 22 22 - 32 mmol/L [facility] Anion gap 13 2 - 15 mmol/L [facility] BUN 21 6 - 25 mg/dL [facility] Creatinine 0.99 0.80 - 1.30 mg/dL [facility] Glucose 118 70 - 199 mg/dL [facility] Comment: Interpretive Data Fasting glucose [...] 2022. Calcium 8.4(L) 8.5 - 10.3 mg/dL [facility] Blood 01/27/2025 6:53 PM CDT 01/27/2025 6:59 PM CDT Kasia Maldonado MD LAB BLOOD ORDERABLES Final Res ult Performing Organization Address City/[facility]/ZIP Co de Phone Number AYAKA KIMBERLY [address] [employer] [place], [place] [phone] * POCT glucose (01/27/2025 6:04 PM CDT) [facility] Signature Glucose, POC 117 70 - 199 mg/dL POC Performer [id number] [facility] Blood 01/27/2025 6:04 PM CDT 01/27/2025 6:04 PM CDT Kasia Maldonado MD LAB POCT ORDERABLES - DEVICE F inal Result Performing Organization Address City/[facility]/ZIP Co de Phone Number WOODROWBENITA HARRIS [address] [place] [address] * Critical Care (01/27/2025 5:45 PM CDT) Narrative Hollis Phillips MD - 01/27/2025 5:45 PM CDT Hollis Phillips MD 01/27/2025 7:08 PM Critical Care Performed by: Hollis Phillips MD Authorized by: Hollis Phillips MD CRITICAL CARE: Team: LUEK Shift: AM Level of Billing: Critical Care [...] plan with the ICU team and other medical/senior staff consultant staff, making frequent assessments and decisions [...] 166 70 - 199 mg/dL POC Performer [id number] AYAKA HARRIS Blood 01/27/2025 4:05 PM CDT 01/27/2025 4:05 PM CDT Kasia Maldonado MD LAB POCT ORDERABLES - DEVICE F inal Result AYAKA HARRIS [address] [place] [address] * POCT glucose (01/27/2025 2:02 PM CDT) Glucose, POC 101 70 - 199 mg/dL POC Performer [id number] [facility] Blood 01/27/2025 2:02 PM CDT 01/27/2025 2:02 PM CDT Kasia Maldonado MD LAB POCT ORDERABLES - DEVICE F inal Result Performing Organization Address [facility] Co de Phone Number AYAKA HARRIS [address] [facility] [place] [address] * POCT glucose (01/27/2025 12:17 PM CDT) Glucose, POC 83 70 - 199 mg/dL POC Performer [id number] [facility] Blood 01/27/2025 12:1 7 PM CDT 01/27/2025 12:17 PM CDT Kasia Maldonado MD LAB POCT ORDERABLES - DEVICE F inal Result Performing Organization Address [facility] Co de Phone Number AYAKA HARRIS [address] [address] [facility] [place] [address] * POCT glucose (01/27/2025 10:58 AM CDT) Glucose, POC 132 70 - 199 mg/dL POC Performer [id number] [facility] Blood 01/27/2025 10:5 8 AM CDT 01/27/2025 10:58 AM CDT Kasia Maldonado MD LAB POCT ORDERABLES - DEVICE F inal Result Performing Organization Address City/[facility] Co de Phone Number AYAKA HARRIS [address] [address] [facility] [place] [address] * ECG 12 lead (01/27/2025 10:50 AM CDT) 01/27/2025 10:5 0 AM CDT Narrative [facility] - 01/27/2025 11:39 AM CDT Vent Rate: 99 bpm RR Interval: 602 msec MD Interval: 163 msec QRS Duration: 93 msec QT Interval: 356 msec QTC Interval: 412 msec P-R-T [place]: 53 - -7 - -1 degrees IMPRESSION: SINUS RHYTHM WITH artifact BORDERLINE ECG Electronically Signed By: Dr. Rivas Lehman [facility] Kasia Maldonado MD ECG ORDERABLES Final Result Performing Organization Address [facility] Co de Phone Number [facility] * POCT glucose (01/27/2025 7:40 AM CDT) Glucose, POC 111 70 - 199 mg/dL POC Performer [id number] [facility] Blood 01/27/2025 7:40 AM CDT 01/27/2025 7:40 AM CDT Kasia Maldonado MD LAB POCT ORDERABLES - DEVICE F inal Result Performing Organization Address [facility] Phone Number AYAKA HARRIS [address] [place] [address] * POCT glucose (01/27/2025 6:27 AM CDT) Glucose, POC 127 70 - 199 mg/dL POC Performer [id number] [facility] Blood 01/27/2025 6:27 AM CDT 01/27/2025 6:27 AM CDT Kasia Maldonado MD LAB POCT ORDERABLES - DEVICE F inal Result Performing Organization Address [facility] de Phone Number AYAKA HARRIS [address] [place] [address] * POCT glucose (01/27/2025 5:16 AM CDT) Glucose, POC 126 70 - 199 mg/dL POC Performer [id number] [facility] Blood 01/27/2025 5:16 AM CDT 01/27/2025 5:16 AM CDT Kasia Maldonado MD LAB POCT ORDERABLES - [place] [address] [address] [place] [address] * XR Chest 1 View - Portable [...] tubes. Left thoracostomy tube mediastinal drain and Dorrance-Karis catheter remain in place. Mild cardiomegaly is seen without failure. No pneumothorax. Procedure Note Sunil Luna MD - 01/27/2025 EXAMINATION: XR CHEST 1 VIEW DATE: 01/27/2025 4:10 AM HISTORY: Cardiac surgery FINDINGS:Compared with the study of the previous day, the patient is extubated with removal of endotracheal and nasogastric tubes. Left thoracostomy tube mediastinal drain and Dorrance-Karis catheter remain in place. Mild cardiomegaly is [...] ORDERABLES Final Res ult Performing Organization Address [facility] Co de Phone Number AYAKA HARRIS [address] [place], [place] [phone] * eGFR (01/27/2025 4:05 AM CDT) eGFR [...] BLOOD ORDERABLES Final Res ult AYAKA HARRIS [address] [address] [place] [address] * (ABNORMAL) Differential, auto (01/27/2025 4:05 AM CDT) Neutrophil abs 12.90(H) 1.50 - 6.50 K/cumm Imm gran abs 0.10 0.00 - 0.10 K/cumm [facility] Lymphocyte abs 0.80 0.80 - 3.30 K/cumm [facility] Monocyte abs 1.45(H) 0.20 - 0.80 K/cumm [facility] Eosinophil abs 0.00 0.00 - 0.50 K/cumm [facility] Basophil abs 0.03 0.00 - 0.10 K/cumm [facility] Neutrophil pct 84.4 % [facility] Comment: Interpretive Data Percent cell count reference ranges are not reported, since discordance with absolute values may lead to misinterpretation of CBC data. Current Interpretive Data was last revised on 2018. Imm gran pct 0.7 % [facility] Comment: Interpretive Data Percent cell count reference ranges are not reported, since discordance with absolute values may lead to misinterpretation of CBC data. Current Interpretive Data was last revised on 2018. Lymphocyte pct 5.2 % [facility] Comment: Interpretive Data Percent cell count reference ranges are not reported, since discordance with absolute values may lead to misinterpretation of CBC data. Current Interpretive Data was last revised on 2018. Monocyte pct 9.5 % [facility] Comment: Interpretive Data Percent cell count reference ranges are not reported, since discordance with absolute values may lead to misinterpretation of CBC data. Current Interpretive Data was last revised on 2018. Eosinophil pct 0.0 % [facility] Comment: Interpretive Data Percent cell count reference ranges are not reported, since discordance with absolute values may lead to misinterpretation of CBC data. Current Interpretive Data was last revised on 2018. Basophil pct 0.2 % [facility] Comment: Interpretive Data Percent cell count reference ranges are not reported, since discordance with absolute values may lead to misinterpretation of CBC data. Current Interpretive Data was last revised on 2018. Blood 01/27/2025 4:05 AM CDT 01/27/2025 4:10 AM CDT us Kasia Maldonado MD LAB BLOOD ORDERABLES Final Res ult AYAKA [address] [place] [address] * (ABNORMAL) CBC with auto differential (01/27/2025 4:05 AM CDT) WBC 15.28(H) 3.80 - 9.90 K/cumm Hgb 9.2(L) 13.0 - 17.5 g/dL [facility] Hct 27.6(L) 38.9 - 50.3 % [facility] Plt 139(L) 150 - 400 K/cumm [facility] MPV 9.6 9.1 - 12.3 fL [facility] RBC 2.88(L) 4.30 - 5.80 M/cumm [facility] MCV 95.8 81.3 - 96.4 fL [facility] MCH 31.9 27.1 - 33.3 pg [facility] MCHC 33.3 32.3 - 35.7 g/dL [facility] RDW CV 13.7 11.1 - 14.9 % [facility] RDW SD 48.3(H) 35.7 - 48.1 fL [facility] NRBC abs 0.00 0.00 - 0.01 K/cumm [facility] Blood 01/27/2025 4:05 AM CDT 01/27/2025 4:10 AM CDT Kasia Maldonado MD LAB BLOOD ORDERABLES Final Res ult Performing Organization Address [facility] Co de Phone Number AYAKA KIMBERLY [address] [place] [address] * (ABNORMAL) Magnesium (01/27/2025 4:05 AM CDT) Magnesium 2.8(H) 1.4 - 2.5 mg/dL Blood 01/27/2025 4:05 AM CDT 01/27/2025 4:10 AM CDT Kasia Maldonado MD LAB BLOOD ORDERABLES Final Res ult Performing Organization Address City/[facility] Co de Phone Number AYAKA [address] [address] [place] [address] * (ABNORMAL) Basic metabolic panel (01/27/2025 4:05 AM CDT) Sodium 140 135 - 145 mmol/L Potassium, pl 4.0 3.3 - 4.9 mmol/L [facility] Chloride 108 97 - 110 mmol/L [facility] CO2 22 22 - 32 mmol/L [facility] Anion gap 10 2 - 15 mmol/L [facility] BUN 19 6 - 25 mg/dL [facility] Creatinine 0.75(L) 0.80 - 1.30 mg/dL [facility] Glucose 114 70 - 199 mg/dL [facility] Comment: [...] 2022. Calcium 8.2(L) 8.5 - 10.3 mg/dL [facility] Blood 01/27/2025 4:05 AM CDT 01/27/2025 4:10 AM CDT Kasia Maldonado MD LAB BLOOD ORDERABLES Final Res ult AYAKA [address] [address] [place] [address] * POCT glucose (01/27/2025 4:03 AM CDT) Glucose, POC 122 70 - 199 mg/dL POC Performer [id number] [facility] Blood 01/27/2025 4:03 AM CDT 01/27/2025 4:03 AM CDT Kasia Maldonado MD LAB POCT ORDERABLES - DEVICE F inal Result Performing Organization Address City/[facility]/ZIP Co de Phone Number AYAKA HARRIS [address] [address] [facility] [place] [address] * POCT glucose (01/27/2025 3:02 AM CDT) Glucose, POC 112 70 - 199 mg/dL POC Performer [id number] [facility] Blood 01/27/2025 3:02 AM CDT 01/27/2025 3:02 AM CDT Kasia Maldonado MD LAB POCT ORDERABLES - DEVICE F inal Result Performing Organization Address [facility] Co de Phone Number WOODROWBENITA HARRIS [address] [address] [facility] [place] [address] * POCT glucose (01/27/2025 1:57 AM CDT) Glucose, POC 127 70 - 199 mg/dL POC Performer [id number] [facility] Blood 01/27/2025 1:57 AM CDT 01/27/2025 1:57 AM CDT Kasia Maldonado MD LAB POCT ORDERABLES - DEVICE F inal Result Performing Organization Address [facility] Co de Phone Number WOODROWBENITA HARRIS [address] [address] [facility] [place] [address] * POCT glucose (01/27/2025 12:50 AM CDT) Glucose, POC 146 70 - 199 mg/dL POC Performer [id number] [facility] Blood 01/27/2025 12:5 0 AM CDT 01/27/2025 12:50 AM CDT Kasia Maldonado MD LAB POCT ORDERABLES - DEVICE F inal Result Performing Organization Address City/[facility] Co de Phone Number WOODROWBENITA HARRIS [address] [address] [place] [address] * Potassium, whole blood (01/27/2025 12:44 AM [...] ORDERABLES Final Res ult Performing Organization Address [facility] Co de Phone Number AYAKA HARRIS [address] [address] [place] [address] * (ABNORMAL) Hemoglobin and hematocrit (01/27/2025 12:44 AM CDT) Pathologist [facility] Hgb 9.1(L) 13.0 - 17.5 g/dL Hct 27.3(L) 38.9 - 50.3 % [facility] Blood 01/27/2025 12:4 4 AM CDT 01/27/2025 12:54 AM CDT Kasia Maldonado MD LAB BLOOD ORDERABLES Final Res ult Performing Organization Address City/[facility]/ZIP Co de Phone Number WOODRWOBENITA HARRIS [address] [address] [place] [address] * (ABNORMAL) Blood gas, arterial (01/27/2025 12:44 AM CDT) pH, Art 7.36 7.35 - 7.45 PCO2, Arterial 40 35 - 45 mmHg [facility] PO2, Arterial 93 83 - 108 mmHg [facility] HCO3 Art (Calculated) 22 20 - 30 mmol/L [facility] BE, art -3 mmol/L [facility] Comment: Interpretive Data No Reference Range Established Current Interpretive Data was last revised on 2017 O2 Sat Art (Measured) 96(H) 90 - 95 % [facility] Blood 01/27/2025 12:4 4 AM CDT 01/27/2025 12:53 AM CDT Kasia Maldonado MD LAB BLOOD ORDERABLES Final Res ult Performing Organization Address [facility] Co de Phone Number AYAKA HARRIS [address] [address] [facility] [place] [address] * POCT glucose (01/26/2025 11:58 PM CDT) Glucose, POC 135 70 - 199 mg/dL POC Performer [id number] [facility] Blood 01/26/2025 11:5 8 PM CDT 01/26/2025 11:58 PM CDT Kasia Maldonado MD LAB POCT ORDERABLES - DEVICE F inal Result Performing Organization Address [facility] Co de Phone Number WOODROWBENITA HARRIS [address] [address] [facility] [place] [address] * POCT glucose (01/26/2025 10:45 PM CDT) Glucose, POC 128 70 - 199 mg/dL POC Performer [id number] [facility] Blood 01/26/2025 10:4 5 PM CDT 01/26/2025 10:45 PM CDT Kasia Maldonado MD LAB POCT ORDERABLES - DEVICE F inal Result Performing Organization Address City/[facility] Co de Phone Number WOODROWBENITA HARRIS [address] [address] [facility] [place] [address] * POCT glucose (01/26/2025 9:50 PM CDT) Glucose, POC 120 70 - 199 mg/dL POC Performer [id number] [facility] Blood 01/26/2025 9:50 PM CDT 01/26/2025 9:50 PM CDT Kasia Maldonado MD LAB POCT ORDERABLES - DEVICE F inal Result Performing Organization Address [facility] Co de Phone Number AYAKA HARRIS [address] [address] [facility] [place] [address] * POCT glucose (01/26/2025 8:52 PM CDT) Pathologist [facility] Glucose, POC 147 70 - 199 mg/dL POC Performer [id number] AYAKA Blood 01/26/2025 8:52 PM CDT 01/26/2025 8:52 PM CDT Kasia Maldonado MD LAB POCT ORDERABLES - DEVICE F inal Result Performing Organization Address [facility] Co de Phone Number AYAKA HARRIS [address] [address] [place] [address] * Calcium, ionized, whole blood (01/26/2025 8:02 PM CDT) [facility] Ca, ionized, bld 4.95 4.50 - 5.10 mg/dL Blood 01/26/2025 8:02 PM CDT 01/26/2025 8:16 PM CDT Kasia Maldonado MD LAB BLOOD ORDERABLES Final Res ult Performing Organization Address [facility] Co de Phone Number AYAKA HARRIS [address] [address] [facility] [place] [address] * eGFR (01/26/2025 8:02 PM CDT) [facility] eGFR >90 >=60 mL/min/1. 73 m2 Comment: [...] ORDERABLES Final Res ult Performing Organization Address [facility] Co de Phone Number AYAKA HARRIS [address] [employer] [place], [place] [id number] * aPTT (01/26/2025 8:02 PM CDT) aPTT 33 28 - 38 sec Comment: Interpretive Data Heparin therapeutic range: 66.0 - 100.0 seconds. Range based on correlation with therapeutic heparin activity range of 0.3 - 0.7 Units/mL. Current interpretive data was last revised on 2023. Blood 01/26/2025 8:02 PM CDT 01/26/2025 8:12 PM CDT Kasia Maldonado MD LAB BLOOD ORDERABLES Final Res ult AYAKA [address] [employer] [place], [place] [phone] * Protime-INR (01/26/2025 8:02 PM CDT) PT 12.1 9.7 - 13.0 sec INR 1.12 0.90 - 1.20 AYAKA HARRIS Comment: Interpretive data Oral anticoagulant therapeutic ranges: Venous thromboembolism prophylaxis or treatment: 2.0-3.0 CARDIOLOGY Standard range: 2.0-3.0 High-intensity range: 2.5-3.5 Refer to indication-specific guidelines for appropriate target ranges for prosthetic heart valve replacement. Current interpretive data was last revised on 2019. Blood 01/26/2025 8:02 PM CDT 01/26/2025 8:12 PM CDT Kasia Maldonado MD LAB BLOOD ORDERABLES Final Res ult Performing Organization Address City/[facility] Co de Phone Number [facility] [address] [address] [place] [address] * Fibrinogen (01/26/2025 8:02 PM CDT) Pathologist [facility] Fibrinogen 248 170 - 400 mg/dL Blood 01/26/2025 8:02 PM CDT 01/26/2025 8:12 PM CDT Hollis Phillips MD LAB BLOOD ORDERAB LES Final Result Performing Organization Address [facility] de Phone Number [facility] [address] [place] [address] * (ABNORMAL) CBC without differential (01/26/2025 8:02 PM CDT) Pathologist [facility] WBC 13.67(H) 3.80 - 9.90 K/cumm Hgb 9.6(L) 13.0 - 17.5 g/dL [facility] Hct 28.4(L) 38.9 - 50.3 % [facility] Plt 132(L) 150 - 400 K/cumm [facility] MPV 9.1 9.1 - 12.3 fL [facility] RBC 2.98(L) 4.30 - 5.80 M/cumm [facility] MCV 95.3 81.3 - 96.4 fL [facility] MCH 32.2 27.1 - 33.3 pg [facility] MCHC 33.8 32.3 - 35.7 g/dL [facility] RDW CV 13.4 11.1 - 14.9 % [facility] RDW SD 47.1 35.7 - 48.1 fL [facility] NRBC abs 0.00 0.00 - 0.01 K/cumm [facility] Blood 01/26/2025 8:02 PM CDT 01/26/2025 8:14 PM CDT Kasia Maldonado MD LAB BLOOD ORDERABLES Final Res ult Performing Organization Address [facility] Co de Phone Number WOODROWBENITA HARRIS [address] [address] [facility] [place] [address] * Type and screen (01/26/2025 8:02 PM CDT) Pathologist [facility] ABO Rh A Positive Blood 01/26/2025 8:02 PM CDT 01/26/2025 8:18 PM CDT Narrative [facility] - 01/26/2025 8:47 PM CDT Has the patient had Daratumumab or Isatuximab in the past 6 months?->Unknown Jordan Escalera NP LAB BLOOD BANK TEST ORDERAB LES Final Result Performing Organization Address [facility] Co de Phone Number WOODROWBENITA HARRIS [address] [facility] [place] [place], [place] [phone] * Magnesium (01/26/2025 8:02 PM CDT) Pathologist [facility] Magnesium 2.1 1.4 - 2.5 mg/dL Blood 01/26/2025 8:02 PM CDT 01/26/2025 8:14 PM CDT Kasia Maldonado MD LAB BLOOD ORDERABLES Final Res ult Performing Organization Address [facility] Co de Phone Number WOODROWBENITA HARRIS [address] [facility] [place] [place], [place] [phone] * (ABNORMAL) Blood gas, arterial (01/26/2025 8:02 [...] 8:02 PM CDT 01/26/2025 8:15 PM CDT us Kasia Maldonado MD LAB BLOOD ORDERABLES Final Res ult [facility] [address] [address] [place] [address] * (ABNORMAL) Basic metabolic panel (01/26/2025 8:02 [...] Calcium 8.6 8.5 - 10.3 mg/dL [facility] Blood 01/26/2025 8:02 PM CDT 01/26/2025 8:14 PM CDT Kasia Maldonado MD LAB BLOOD ORDERABLES Final Res ult Performing Organization Address City/[facility]/ZIP Co de Phone Number WOODROWBENITA HARRIS [address] [address] [facility] [place] [address] * POCT glucose (01/26/2025 7:36 PM CDT) Glucose, POC 137 70 - 199 mg/dL POC Performer [id number] [facility] Blood 01/26/2025 7:36 PM CDT 01/26/2025 7:36 PM CDT Kasia Maldonado MD LAB POCT ORDERABLES - DEVICE F inal Result Performing Organization Address [facility] Co de Phone Number WOODROWBENITA [address] [address] [facility] [place] [address] * Transfuse RBC (01/26/2025 7:27 PM CDT) Blood Hollis Phillips MD BLOOD TRANSFUSION ORDERABLES Final Result Performing Organization Address [facility]/ZIP Co de Phone Number WOODROWBENITA HARRIS [address] [address] [facility] [place] [address] * POCT glucose (01/26/2025 6:28 PM CDT) Glucose, POC 155 70 - 199 mg/dL POC Performer [id number] AYAKA Blood 01/26/2025 6:28 PM CDT 01/26/2025 6:28 PM CDT Kasia Maldonado MD LAB POCT ORDERABLES - DEVICE F inal Result Performing Organization Address [facility] Co de Phone Number AYAKA [address] [address] [facility] [place] [address] * Transfuse cryoprecipitate (pooled units) (01/26/2025 5:32 PM CDT) Blood Kasia Maldonado MD BLOOD TRANSFUSION ORDERABLES F inal Result Performing Organization Address [facility] Co de Phone Number AYAKA HARRIS [address] [address] [facility] [place] [address] * POCT glucose (01/26/2025 5:28 PM CDT) Glucose, POC 153 70 - 199 mg/dL POC Performer [id number] [facility] Blood 01/26/2025 5:28 PM CDT 01/26/2025 5:28 PM CDT Kasia Maldonado MD LAB POCT ORDERABLES - DEVICE F inal Result Performing Organization Address [facility] de Phone Number WOODROWBENITA HARRIS [address] [place] [address] * Prepare RBC: 1 Units (01/26/2025 5:10 PM CDT) Product code [id number] Unit Number [id number] 2-H [facility] Product Blood Type APOS [facility] Dispense Status RETURNED [facility] Blood 01/26/2025 5:10 PM CDT Narrative [facility] - 01/28/2025 12:14 AM CDT Are special requirements needed? (All products are leukoreduced and CMV- safe)- >No Donor Source->[employer] Date required:-[id number] LRRBC # of [id number] Reasons:-Active bleeding, Hgb <8 g/dL} Hollis Phillips MD BLOOD BANK PRODUC T ORDERABLES Final Result Performing Organization Address [facility] Co de Phone Number AYAKA HARRIS [address] [address] [facility] [address] [place], [place] [phone] * XR Chest 1 View - Portable [...] drain in place. The tip of the Dorrance-Karis catheter is in the undivided main pulmonary [...] drain in place. The tip of the Dorrance-Karis catheter is in the undivided main pulmonary [...] ORDERABLES Final Res ult Performing Organization Address [facility] Co de Phone Number AYAKA [address] [address] [employer] [place], [place] [id number] * aPTT (01/26/2025 4:12 PM CDT) aPTT [...] ORDERABLES Final Res ult Performing Organization Address [facility] Co de Phone Number AYAKA [address] [address] [address] * (ABNORMAL) Protime-INR (01/26/2025 4:12 PM CDT) PT 13.4(H) 9.7 - 13.0 sec INR 1.24(H) 0.90 - 1.20 AYAKA HARRIS Comment: Interpretive data Oral anticoagulant therapeutic ranges: Venous thromboembolism prophylaxis or treatment: 2.0-3.0 CARDIOLOGY Standard range: 2.0-3.0 High-intensity range: 2.5-3.5 Refer to indication-specific guidelines for appropriate target ranges for prosthetic heart valve replacement. Current interpretive data was last revised on 2019. Blood 01/26/2025 4:12 PM CDT 01/26/2025 4:18 PM CDT Kasia Maldonado MD LAB BLOOD ORDERABLES Final Res ult Performing Organization Address City/[facility]/ZIP Co de Phone Number [facility] [address] Department [place] [address] * (ABNORMAL) CBC without differential (01/26/2025 4:12 PM CDT) WBC 19.20(H) 3.80 - 9.90 K/cumm Hgb 8.8(L) 13.0 - 17.5 g/dL [facility] Comment:Hemoglobin delta due to surgical procedure. This result has been called to Azucena Valle by [id number] on 01/26/2025 16:36:31. Hct 26.7(L) 38.9 - 50.3 % [facility] Plt 148(L) 150 - 400 K/cumm [facility] Comment:No clot detected in sample. MPV 9.3 9.1 - 12.3 fL [facility] RBC 2.78(L) 4.30 - 5.80 M/cumm [facility] MCV 96.0 81.3 - 96.4 fL [facility] MCH 31.7 27.1 - 33.3 pg [facility] MCHC 33.0 32.3 - 35.7 g/dL [facility] RDW CV 13.1 11.1 - 14.9 % [facility] RDW SD 46.0 35.7 - 48.1 fL [facility] NRBC abs 0.00 0.00 - 0.01 K/cumm [facility] Blood 01/26/2025 4:12 PM CDT 01/26/2025 4:18 PM CDT Kasia Maldonado MD LAB BLOOD ORDERABLES Final Res ult Performing Organization Address City/[facility]/ZIP Co de Phone Number AYAKA HARRIS [address] Department [place] [address] * (ABNORMAL) Blood gas, arterial (01/26/2025 4:12 [...] BLOOD ORDERABLES Final Res ult AYAKA HARRIS [address] [place] [address] * (ABNORMAL) Basic metabolic panel (01/26/2025 4:12 PM CDT) Pathologist [facility] Sodium 139 135 - 145 mmol/L Potassium, pl 4.0 3.3 - 4.9 mmol/L [facility] Chloride 109 97 - 110 mmol/L [facility] CO2 19(L) 22 - 32 mmol/L [facility] Anion gap 11 2 - 15 mmol/L [facility] BUN 17 6 - 25 mg/dL [facility] Creatinine 0.69(L) 0.80 - 1.30 mg/dL [facility] Glucose 147 70 - 199 mg/dL [facility] Comment: Interpretive Data Fasting glucose [...] 2022. Calcium 7.6(L) 8.5 - 10.3 mg/dL [facility] Blood 01/26/2025 4:12 PM CDT 01/26/2025 4:18 PM CDT Kasia Maldonado MD LAB BLOOD ORDERABLES Final Res ult Performing Organization Address [facility] Co de Phone Number AYAKA [address] Department [place] [address] * Prepare cryoprecipitate (pooled units): 2 Units (01/26/2025 3:26 PM CDT) Pathologist [facility] Product code [id number] Unit Number [id number]- M [facility] Product Blood Type OPOS [facility] Dispense Status PRESUMED TRANSFUSED [facility] Blood Venous blood specimen / Unknown 01/26/2025 3:26 PM CDT Narrative [facility] - 01/27/2025 9:45 AM CDT Other indication->BLEEDING Cryo # of [id number] Reasons:-Other (Specify)} Kasia Maldonado MD BLOOD BANK PRODUCT ORDERABLES Final Result Performing Organization Address [facility] de Phone Number AYAKA HARRIS [address] [place] [address] * (ABNORMAL) POC Blood Gas and Chemistries, [...] DEVICE F inal Result Performing Organization Address City/[facility]/ZIP Co de Phone Number AYAKA HARRIS [address] [employer] [place], [place] [id number] * POC Activated Clotting Time, High Range (01/26/2025 2:14 PM CDT) ACT 126 87 - 138 sec POC Performer [id number] [facility] Blood 01/26/2025 2:14 PM CDT 01/26/2025 2:14 PM CDT Kasia Maldonado MD LAB BLOOD ORDERABLES Final Res ult AYAKA HARRIS [address] [place] [address] * (ABNORMAL) POC Blood Gas and Chemistries, [...] DEVICE F inal Result Performing Organization Address City/[facility] Co de Phone Number AYAKA [address] Department [place] [address] * POC Activated Clotting Time, High Range (01/26/2025 1:17 PM CDT) ACT 115 87 - 138 sec POC Performer [id number] [facility] Blood 01/26/2025 1:17 PM CDT 01/26/2025 1:17 PM CDT Kasia Maldonado MD LAB BLOOD ORDERABLES Final Res ult AYAKA HARRIS [address] Department [place] [address] * (ABNORMAL) POC Blood Gas and Chemistries, [...] - DEVICE F inal Result AYAKA HARRIS [address] [place] Department [place] [address] * (ABNORMAL) POC Activated Clotting Time, High Range (01/26/2025 12:37 PM CDT) Pathologist [facility] ACT 686(H) 87 - 138 sec POC Performer [id number] [facility] Blood 01/26/2025 12:3 7 PM CDT 01/26/2025 12:37 PM CDT Kasia Maldonado MD LAB BLOOD ORDERABLES Final Res ult Performing Organization Address City/[facility] Co de Phone Number AYAKA HARRIS [address] [place] [address] * Platelet count (01/26/2025 12:30 PM CDT) [facility] Plt 209 150 - 400 K/cumm Blood 01/26/2025 12:3 0 PM CDT 01/26/2025 12:45 PM CDT Kasia Maldonado MD LAB BLOOD ORDERABLES Final Res ult Performing Organization Address [facility] de Phone Number AYAKA HARRIS [address] [place] [address] * (ABNORMAL) POC Blood Gas and Chemistries, Arterial - (01/26/2025 12:01 PM CDT) [facility] pH, Art POC 7.40 7.35 - 7.45 [...] DEVICE F inal Result Performing Organization Address City/[facility]/ZIP Co de Phone Number AYAKA HARRIS [address] Department [address] [place], [place] [id number] * (ABNORMAL) POC Activated Clotting Time, High Range (01/26/2025 11:59 AM CDT) ACT 824(H) 87 - 138 sec POC Performer [id number] [facility] Blood 01/26/2025 11:5 9 AM CDT 01/26/2025 11:59 AM CDT Kasia Maldonado MD LAB BLOOD ORDERABLES Final Res ult Performing Organization Address [facility]/ZIP Co de Phone Number AYAKA HARRIS [address] [place], [place] [id number] * (ABNORMAL) POC Blood Gas and Chemistries, [...] 2 AM CDT 01/26/2025 11:32 AM CDT Kasia Maldonado MD LAB POCT ORDERABLES - DEVICE F inal Result AYAKA HARRIS [address] [address] * (ABNORMAL) POC Activated Clotting Time, High Range (01/26/2025 11:29 AM CDT) ACT 674(H) 87 - 138 sec POC Performer [id number] [facility] Blood 01/26/2025 11:2 9 AM CDT 01/26/2025 11:29 AM CDT Kasia Maldonado MD LAB BLOOD ORDERABLES Final Res ult AYAKA HARRIS [address] [place] [address] * (ABNORMAL) POC Activated Clotting Time, High Range (01/26/2025 10:48 AM CDT) ACT 548(H) 87 - 138 sec POC Performer [id number] AYAKA HARRIS Blood 01/26/2025 10:4 8 AM CDT 01/26/2025 10:48 AM CDT us Kasia Maldonado MD LAB BLOOD ORDERABLES Final Res ult AYAKA HARRIS [address] [place] [address] * BW AN SHEATH INTRODUCER PERFORMABLE, PULMONARY [...] patient tolerated procedure well with no complications José Manuel Torres MD ANESTHESIA ORDERABLES Final Re sult * MD AN ELECTIVE ENDOTRACHEAL AIRWAY (01/26/2025 9:32 AM [...] 1 Additional comments: Atraumatic. Teeth as before. José Manuel Torres MD ANESTHESIA ORDERABLES Final [...] POCT ORDERABLES - [place] [address] [address] [facility] [place] [address] * POC Activated Clotting Time, High Range (01/26/2025 9:22 AM CDT) Pathologist [facility] ACT 101 87 - 138 sec POC Performer [id number] [facility] Blood 01/26/2025 9:22 AM CDT 01/26/2025 9:22 AM CDT Kasia Maldonado MD LAB BLOOD ORDERABLES Final Res ult Performing Organization Address City/[facility]/ZIP Co de Phone Number WOODROWBENITA HARR[place] [address] [place] [address] * Check Sample (01/26/2025 8:20 AM CDT) Pathologist [facility] ABO Rh A Positive [facility] HC[facility] OTHER 01/26/2025 8:20 AM CDT 01/26/2025 9:06 AM CDT Kasia Maldonado MD LAB BLOOD ORDERABLES Final Res ult Performing Organization Address City/[facility] Co de Phone Number AYAKA HARRIS [address] [facility] [place] [address] CH * Prepare RBC: 4 Units (01/26/2025 7:59 AM CDT) Pathologist [facility] Product code [id number] [facility] Unit Number [id number]- I [facility] Product Blood Type APOS [facility] Dispense Status RETURNED [facility] Product code [id number] [facility] Unit Number [id number]- [id number] [facility] Product Blood Type APOS [facility] Dispense Status PRESUMED TRANSFUSED [facility] Product code [id number] Unit Number [id number]- [id number] [facility] Product Blood Type APOS [facility] Dispense Status RETURNED [facility] Product code [id number] [facility] Unit Number [id number]- K [facility] Product Blood Type APOS [facility] Dispense Status RETURNED [facility] Blood 01/26/2025 7:59 AM CDT Narrative [facility] - 01/28/2025 12:14 AM CDT Specify Procedure:->CABG Are special requirements needed? (All products are leukoreduced and CMV- safe)- >No Date required:-[id number] LRRBC # of [id number] Reasons:-Hold for procedure (specify procedure)} Jordan Escalera NP BLOOD BANK PRODUCT ORDERABL ES Final Result Performing Organization Address [facility] de Phone Number AYAKA [address] Department of Laboratories [place], [place] [id number] * POCT glucose (01/26/2025 7:43 AM CDT) Glucose, POC 195 70 - 199 mg/dL POC Performer [id number] [facility] Blood 01/26/2025 7:43 AM CDT 01/26/2025 7:43 AM CDT Kasia Maldonado MD LAB POCT ORDERABLES - DEVICE F inal Result Performing Organization Address [facility] Phone Number AYAKA [address] [place], [place] [id number] * ECG 12 lead (01/24/2025 11:43 AM CDT) 01/24/2025 11:4 3 AM CDT Narrative [facility] - 01/24/2025 4:24 PM CDT Vent Rate: 72 bpm RR Interval: 828 msec MD Interval: 162 msec QRS Duration: 73 msec QT Interval: 348 msec QTC Interval: 372 msec P-R-T [place]: -6 - -23 - 13 degrees IMPRESSION: SINUS RHYTHM POSSIBLE LEFT ATRIAL ENLARGEMENT BORDERLINE LEFT AXIS DEVIATION BORDERLINE ECG Electronically Signed By: Jean Pierre Sanon MD Kasia Maldonado MD ECG ORDERABLES Final Result Performing Organization Address [facility] Phone Number [facility] [employer] [facility] * XR Chest PA Lateral 2 View [...] MD LAB BLOOD ORDERABLES Final Res ult [facility] [address] Department [place] [address] * Urinalysis reflex to microscopic [...] tendency for uric acid stone formation. Source: [facility] Current Interpretive Data was last revised on 2017 Protein, ur ql Negative Negative [facility] Glucose, ur ql Negative Negative [facility] Ketones, ur Negative Negative [facility] Bilirubin, ur Negative Negative [facility] Blood, ur Negative Negative [facility] Urobilinogen, ur <2.0 <2.0 mg/dL [facility] Nitrite, ur Negative Negative [facility] Leukocyte esterase, ur Negative Negative [facility] UA reflex comment Reflex conditions for microscopic UA and culture not met. [facility] Urine, clean voided 01/24/2025 11:11 AM CDT 01/24/2025 12:31 PM CDT Kasia Maldonado MD LAB MICROBIOLOGY - GENERAL ORD ERABLES Final Result Performing Organization Address [facility] Co de Phone Number AYAKA HARRIS [address] [place] [address] * aPTT (01/24/2025 11:11 AM CDT) aPTT [...] ORDERABLES Final Res ult Performing Organization Address [facility] Co de Phone Number AYAKA HARRIS [address] [place] [address] * Protime-INR (01/24/2025 11:11 AM CDT) PT [...] ORDERABLES Final Res ult Performing Organization Address [facility] Co de Phone Number AYAKA HARRIS [address] [place] [address] * (ABNORMAL) CBC without differential (01/24/2025 11:11 AM CDT) WBC 9.86 3.80 - 9.90 K/cumm Hgb 13.5 13.0 - 17.5 g/dL [facility] Hct 40.5 38.9 - 50.3 % [facility] Plt 302 150 - 400 K/cumm [facility] MPV 9.0(L) 9.1 - 12.3 fL [facility] RBC 4.29(L) 4.30 - 5.80 M/cumm [facility] MCV 94.4 81.3 - 96.4 fL [facility] MCH 31.5 27.1 - 33.3 pg [facility] MCHC 33.3 32.3 - 35.7 g/dL [facility] RDW CV 13.0 11.1 - 14.9 % [facility] RDW SD 44.7 35.7 - 48.1 fL [facility] NRBC abs 0.00 0.00 - 0.01 K/cumm [facility] CH Blood 01/24/2025 11:1 1 AM CDT 01/24/2025 11:48 AM CDT Kasia Maldonado MD LAB BLOOD ORDERABLES Final Res ult Performing Organization Address City/[facility]/ZIP Co de Phone Number AYAKA HARRIS [address] [place] [address] * Type and screen (01/24/2025 11:11 AM CDT) Pathologist [facility] Cosmo, indirect Negative ABO Rh A Positive [facility] Blood 01/24/2025 11:1 1 AM CDT 01/24/2025 11:49 AM CDT Narrative [facility] - 01/24/2025 12:31 PM CDT Has the patient had Daratumumab or Isatuximab in the past 6 months?->Unknown Kasia Maldonado MD LAB BLOOD BANK TEST ORDERABLES Final Result AYAKA KIMBERLY [address] [place] [address] * (ABNORMAL) Basic metabolic panel (01/24/2025 11:11 AM CDT) Sodium 134(L) 135 - 145 mmol/L Potassium, pl 4.1 3.3 - 4.9 mmol/L [facility] Chloride 100 97 - 110 mmol/L [facility] CO2 24 22 - 32 mmol/L [facility] Anion gap 10 2 - 15 mmol/L [facility] BUN 17 6 - 25 mg/dL [facility] Creatinine 0.70(L) 0.80 - 1.30 mg/dL [facility] Glucose 123 70 - 199 mg/dL [facility] Comment: Interpretive Data Fasting glucose [...] 2022. Calcium 9.4 8.5 - 10.3 mg/dL [facility] Blood 01/24/2025 11:1 1 AM CDT 01/24/2025 11:48 AM CDT Kasia Maldonado MD LAB BLOOD ORDERABLES Final Res ult [facility] [address] [place] [address] * US Carotids Duplex Bilateral (01/20/2025 2:30 PM CDT) [...] PM CDT Narrative 01/20/2025 1:59 [place] [address] Echocardiogram Report Patient Name: OSEAS MORA ALFRED : 1950 Study Date: 01/20/2025 12:49:29 PM Gender: M Tech: Location: [address] [place] [address] Provider: ANABELL SAINI Height(Cm): 170 BSA: 1.86 [...] Procedure Note Anabell Saini MD - 01/20/2025 [place] [address] Echocardiogram Report Patient Name: OSEAS MORA ALFRED : 1950 Study Date: 01/20/2025 12:49:29 PM Gender: M [facility]: Location: 59 Ref Provider: ANABELL SAINI Height(Cm): 170 BSA: [...] * POCT glucose (01/20/2025 10:23 AM CDT) Glucose, POC 102 70 - 199 mg/dL POC Performer [id number] AYAKA Blood 01/20/2025 10:2 3 AM CDT 01/20/2025 10:23 AM CDT Anabell Saini MD LAB POCT ORDERABLES - DEVICE Fin al Result [facility] [address] Department [place] [address] * LEFT HEART CATHETERIZATION WITH CORONARY ANGIOGRAPHY AND WITH AND WITHOUT LEFT VENTRICULOGRAM (01/20/2025 9:42 AM CDT) Anatomical Region Laterality Modality X-Ray Angiograph y Narrative 01/20/2025 10:24 AM CDT CARDIAC CATHETERIZATION REPORT Oseas Mora IP ENCOUNTER: [id number] Date of Procedure: 01/20/2025 BIRTHDATE: 1950 SALES TRADER: Anabell Saini MD REFERRING PHYSICIAN: Dr. Patricio [...] patient. Patient was then brought into the solar lab technician and was draped and prepped in the [...] for evaluation for coronary artery bypass grafting us Anabell Saini MD CV CARDIAC CATH PROCEDURES [...] MD LAB BLOOD ORDERABLES Final Resul t [facility] [address] [place] [address] * (ABNORMAL) Differential, auto (01/20/2025 8:06 AM CDT) Neutrophil abs 3.61 1.50 - 6.50 K/cumm Imm gran abs 0.02 0.00 - 0.10 K/cumm [facility] Lymphocyte abs 2.31 0.80 - 3.30 K/cumm [facility] Monocyte abs 1.06(H) 0.20 - 0.80 K/cumm [facility] Eosinophil abs 0.19 0.00 - 0.50 K/cumm [facility] Basophil abs 0.09 0.00 - 0.10 K/cumm [facility] Neutrophil pct 49.6 % [facility] Comment: Interpretive Data Percent cell count reference ranges are not reported, since discordance with absolute values may lead to misinterpretation of CBC data. Current Interpretive Data was last revised on 2018. Imm gran pct 0.3 % [facility] Comment: Interpretive Data Percent cell count reference ranges are not reported, since discordance with absolute values may lead to misinterpretation of CBC data. Current Interpretive Data was last revised on 2018. Lymphocyte pct 31.7 % [facility] Comment: Interpretive Data Percent cell count reference ranges are not reported, since discordance with absolute values may lead to misinterpretation of CBC data. Current Interpretive Data was last revised on 2018. Monocyte pct 14.6 % [facility] Comment: Interpretive Data Percent cell count reference ranges are not reported, since discordance with absolute values may lead to misinterpretation of CBC data. Current Interpretive Data was last revised on 2018. Eosinophil pct 2.6 % [facility] Comment: Interpretive Data Percent cell count reference ranges are not reported, since discordance with absolute values may lead to misinterpretation of CBC data. Current Interpretive Data was last revised on 2018. Basophil pct 1.2 % [facility] Comment: Interpretive Data Percent cell count reference ranges are not reported, since discordance with absolute values may lead to misinterpretation of CBC data. Current Interpretive Data was last revised on 2018. Blood 01/20/2025 8:06 AM CDT 01/20/2025 8:17 AM CDT us Anabell Saini MD LAB BLOOD ORDERABLES Final Resul t [facility] [address] Department [place] [address] * (ABNORMAL) CBC with auto differential (01/20/2025 8:06 AM CDT) WBC 7.28 3.80 - 9.90 K/cumm Hgb 14.2 13.0 - 17.5 g/dL [facility] Hct 42.1 38.9 - 50.3 % [facility] Plt 302 150 - 400 K/cumm [facility] MPV 9.0(L) 9.1 - 12.3 fL [facility] RBC 4.45 4.30 - 5.80 M/cumm [facility] MCV 94.6 81.3 - 96.4 fL [facility] MCH 31.9 27.1 - 33.3 pg [facility] MCHC 33.7 32.3 - 35.7 g/dL [facility] RDW CV 12.9 11.1 - 14.9 % [facility] RDW SD 44.8 35.7 - 48.1 fL [facility] NRBC abs 0.00 0.00 - 0.01 K/cumm [facility] Blood 01/20/2025 8:06 AM CDT 01/20/2025 8:17 AM CDT Narrative [facility] - 01/20/2025 8:35 AM CDT If most recent labs were drawn prior to 4 AM, draw only prior to initiating procedure. us Anabell Saini MD LAB BLOOD ORDERABLES Final Resul t AYAKA [address] Department [place] [address] * (ABNORMAL) Basic metabolic panel (01/20/2025 8:06 AM CDT) Sodium 139 135 - 145 mmol/L Potassium, pl 4.1 3.3 - 4.9 mmol/L [facility] Chloride 104 97 - 110 mmol/L [facility] CO2 25 22 - 32 mmol/L [facility] Anion gap 10 2 - 15 mmol/L [facility] BUN 17 6 - 25 mg/dL [facility] Creatinine 0.77(L) 0.80 - 1.30 mg/dL [facility] Glucose 115 70 - 199 mg/dL [facility] Comment: Interpretive Data Fasting glucose [...] 2022. Calcium 9.1 8.5 - 10.3 mg/dL [facility] Blood 01/20/2025 8:06 AM CDT 01/20/2025 8:18 AM CDT us Anabell Saini MD LAB BLOOD ORDERABLES Final Resul t Performing Organization Address City/[facility] Co de Phone Number AYAKA HARRIS [address] [place] [address] * POCT glucose (01/20/2025 7:57 AM CDT) [facility] Signature Glucose, POC 109 70 - 199 mg/dL POC Performer [id number] [facility] Blood 01/20/2025 7:57 AM CDT 01/20/2025 7:57 AM CDT Anabell Saini MD LAB POCT ORDERABLES - DEVICE Fin al Result Performing Organization Address [facility] Co de Phone Number AYAKA HARRIS [address] [place] [address] * CTA Heart and Coronary Arteries W [...] * POC ISTAT (01/12/2025 1:52 PM CDT) [facility] Creatinine, POC, bld 0.8 0.6 - 1.3 mg/dL POC Device Number [id number] [facility] P[facility] Performer [id number] [facility] Blood 01/12/2025 1:52 PM CDT 01/12/2025 1:52 PM CDT Shabbir White MD LAB BLOOD ORDERABL ES Final Result [facility] [address] [facility]. [place] [address] * POCT lipid panel (12/15/2024 2:28 PM TAFE REGISTRAR) Cholesterol, POC 231 mg/dL HDL, POC 45 mg/dL Triglycerides, POC 108 mg/dL LDL Cholesterol POC 165 mg/dL Chol/HDL Ratio, POC 5.1 Non-HDL Cholesterol, POC 186 mg/dL Cholesterol Total, POC 231 mg/dL Capillary blood 12/15/2024 2 :28 PM TAFE REGISTRAR Gera Patricio MD POINT OF CARE TEST ORDERA BLES Final Result * Electrocardiogram Report (12/15/2024 8:17 AM TAFE REGISTRAR) us Gera Patricio MD ECG ORDERABLES Final Res ult from Last 3 Months Insurance [facility] [employer] MED[employer] [facility] [employer] Advance Directives For more information, please contact: [phone] * Full Code (Latest Code Status on File) Date Activated Date Inactivated Comments 01/26/2025 4:03 PM 01/31/2025 9:06 PM Care Teams Ship Rigger Apprentice Relationship Specialty Start Date End Date Shabbir White MD [address] [place] [address] PCP - General 02/07/17 Kasia Maldonado MD [address] [id number] [place] [address] Surgeon Cardiothoracic Surgery 01/31/25 Gera Patricio MD [address] [address] Consulting Physician Cardiology 01/31/25 Miscellaneous, Not In File 01/31/25
--- OUTSIDE RECORDS SUMMARY | 2025-02-12 12:21 | XMS_ITS | Encounter Summary ---
Author Organization [facility] Healthcare Address [address] [place] [address] Care Team Providers Care Balance Clerk Name Role Phone Shabbir White MD Primary Care Prov ider Kasia Maldonado MD Unavailable [phone] Gera Patricio MD Unavailable [phone] Miscellaneous, Not In File Unavailable Unava ilable Encounter Details Date Type Department Care Team (Late st Contact Info) Description 02/02/2025 [facility] Post Discharge Follow up phone call [facility] [address] [place] [address] Evangelina Khan Social History Tobacco Use Types Packs/Day Years Used Date Smoking Tobacco: Former Cigarettes 1 16 1 970 - 1986 Smokeless Tobacco: Never Alcohol Use Standard Drinks/Week Comments Yes 1 (1 standard drink = 0.6 oz pur e alcohol) nightly [facility] Utilities Answer Date Recorded In the past 12 months has [employer], gas, oil, or water [employer] threatened to shut off services in your [...] week 01/31/2025 How often do you attend [facility] or yarsani services? Never 01/31/2025 Do you belong to any clubs o r organizations such as orthodox groups, unions, fraternal or athletic groups, or [...] any time in the past [address] [facility], were you homeless or living in a jail (including now)? No 01/31/2025 Personal Safety Answer Date Recorded Have you ever been in or are you currently in a harmful physical or emotional relationship or is someone making you feel afraid or unsafe? 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 Gender Identity Not on file Sexual Orientation Not on file documented as of this encounter Plan of Treatment Not on file documented as of this encounter Visit Diagnoses Not on filedocumented in this encounter Care Teams Balance Clerk Relationship Specialty Start Date End Date Shabbir White MD [address] [place] [address] PCP - General 02/07/17 Kasia Maldonado MD [id number] [place] [address] Surgeon Cardiothoracic Surgery 01/31/25 Gera Patricio MD [address] [address] Consulting Physician Cardiology 01/31/25 Miscellaneous, Not In File 01/31/25 documented as of this encounter
--- OUTSIDE RECORDS SUMMARY | 2025-02-12 12:21 | XMS_ITS | Clinical Summary ---
Author Organization [facility] Address [address], [address] [address] Phone Care Team Providers Care Rubber Chemist Name Role Phone Shabbir White MD Primary Care Provider + Quique Smiley DO Unavailable [phone] Allergies No known active allergies Medications [...] Most Recently Relevant to Health Maintenance Insurance [facility] Care Teams Rubber Chemist Relationship Specialty Start Date End Date Shabbir White MD [address] [place] [address] PCP - General Family Medicine 08/16/16 Quique Smiley DO [address] [place] [address] Gastroenterology 08/16/16
--- OUTSIDE RECORDS SUMMARY | 2025-02-12 12:21 | XMS_ITS ---
Author Organization [facility] C Address [address] [place] [address] Care Team Providers Care Pharmacologist Name Role Phone Shabbir White MD Primary Care Prov ider Kasia Maldonado MD Unavailable [phone] Gera Patricio MD Unavailable Miscellaneous, Not In File Unavailable Unava ilable Active Problems Problem Noted Date Diagnosed Date [...] now. Assessment & Plan (09/09/2023 1:08 PM AUDIOVISUAL AIDS TECHNICIAN): 2/2 RK OU, patient having issues with I/R and having other health issues Would like to return lenses and try again at another time. Will return Thomaston lenses and RTC for refit in future [...] next exam OS RTC for dispense reF# [id number] Assessment & Plan (05/23/2023 4:00 PM CDT): 2/2 RK OU, possible OHx of amblyopia OD; patient states that OD (even prior to RK) has never seen as well as OS Educated patient on options, corneal GP (would need reverse kate design) vs scleral Patient concerned about dryness and comfort, will go ahead with scleral fit today Today with Thomaston 16.0, excellent comfort OU: OD: 450um central, minimal limbal. Slighlt toe impingement 360, better periphery with flat lens OS: 450um central, minimal limbal. Slight toe impitngement 360, better periphery with flat and better vision with FSE2 Flat periphery / FSE2 / aim for 280um central clearance with adjustments today BCVA 20/30- OD; 20/25-- OS RTC for dispense Ref# [id number] Assessment & Plan (12/11/2022 4:19 PM AUDIOVISUAL AIDS TECHNICIAN): Patient is s/p 1 cut RK OU and has to change between several pairs of glasses through the day due to fluctuations in refractive error. Pt has been told about scleral lenses in the past and is interested in trying them. Will consult with Dr. Rivera and schedule and evaluation. Retinal drusen of both eyes 06/05/2022 Assessment & Plan (12/11/2022 4:19 PM AUDIOVISUAL AIDS TECHNICIAN): Mild and stable. F/u annually. Assessment & [...] CPM. Assessment & Plan (11/28/2021 1:23 PM AUDIOVISUAL AIDS TECHNICIAN): Continue ATs prn. Assessment & Plan (05/30/2021 2:28 PM CDT): PF ATs prn. Assessment & Plan (01/31/2021 1:46 PM CDT): Well controlled with artificial tears. CPM Assessment & Plan (12/13/2020 1:16 PM AUDIOVISUAL AIDS TECHNICIAN): Pt feels his symptoms are well controlled [...] 10/26/2019 Assessment & Plan (10/29/2019 7:17 PM AUDIOVISUAL AIDS TECHNICIAN): Chest pain is atypical in that it occurs only sometimes in his in various locations of his chest. I am suspicious that it is musculoskeletal, but would recommend a stress test. As his EKG is normal, imaging is not required. Biceps tendinitis of right upper extremity 11/25 Overview (11/25/2018): Added automatically from request for surgery [id number] Incomplete tear of right rotator cuff 11/25/2018 Overview (11/25/2018): Added automatically from request for surgery [id number] Open angle with borderline f indings and [...] ck. Assessment & Plan (12/11/2022 4:18 PM AUDIOVISUAL AIDS TECHNICIAN): Mild OAG vs suspect. Started on tx [...] ck. Assessment & Plan (11/28/2021 1:23 PM AUDIOVISUAL AIDS TECHNICIAN): Mild OAG vs suspect. IOP well controlled [...] irritation. Assessment & Plan (12/13/2020 1:21 PM AUDIOVISUAL AIDS TECHNICIAN): IOP stable on 1 class. Travatan is [...] OU Assessment & Plan (12/11/2022 4:19 PM AUDIOVISUAL AIDS TECHNICIAN): S/p RK OU Assessment & Plan (06/05/2022 3:57 PM CDT): S/p 16 incision RK. Stable. Observe. Assessment & Plan (11/28/2021 1:23 PM AUDIOVISUAL AIDS TECHNICIAN): S/p 16 incision RK OU Assessment & Plan (05/30/2021 2:28 PM CDT): Hx of RK. Observe. Squamous cell carcinoma of skin of face 11/01/19 16 History of nonmelanoma skin cancer 09/26/2015 Dysesthesia 09/30/2014 Skin cancer 08/26/2014 Vitamin D deficiency disease 11/30/2013 Pain in soft tissues of limb 06/11/2011 Osteopenia 03/25/2011 Current Treatment and Therapy Plans No current plan information found. Past Treatment and Therapy Plans No past plan information found. Lifetime Dose Tracking * Chemical Lifetime Dose Automatic Entry Manual Entr y Air kerma at the reference point (Ka,r) 597 mGy 0 mGy 597 mGy DLP 365 mGycm 365 mGycm 0 mGycm
--- OUTSIDE RECORDS SUMMARY | 2025-02-12 12:21 | XMS_ITS | Encounter Summary ---
Author Organization [facility] Healthcare Address [address] [place] [address] Care Team Providers Care Claim Trainee Name Role Phone Shabbir White MD Primary Care Prov ider Kasia Maldonado MD Unavailable [phone] Gera Patricio MD Unavailable [phone] Miscellaneous, Not In File Unavailable Unava ilable Encounter Details Date Type Department Care Team (Late st Contact Info) Description 11/30/2021 Telephone [facility] [address] 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 Gender Identity Not on file Sexual Orientation Not on file documented as of this encounter Plan of Treatment Not on file documented as of this encounter Visit Diagnoses Not on filedocumented in this encounter Care Teams Claim Trainee Relationship Specialty Start Date End Date Shabbir White MD [address] [place] [address] PCP - General 02/07/17 Kasia Maldonado MD [address] [place] [address] Surgeon Cardiothoracic Surgery 01/31/25 Gera Patricio MD [address] [address] Consulting Physician Cardiology 01/31/25 Miscellaneous, Not In File 01/31/25 documented as of this encounter
--- OUTSIDE RECORDS SUMMARY | 2025-02-12 12:21 | XMS_ITS | Clinical Summary ---
Author Organization [facility] Address [address] [place] [address] Care Team Providers Care Engraver Tire Mold Name Role Phone Shabbir White MD Primary Care Provider [phone] Allergies No known active allergies Medications famotidine [...] INTO EACH EYE NIGHTLY 06/11/2023 Active Immunizations Immunization Administration Dates Next Due Fluzone High Dose [...] Td Vaccines ( 1 - Tdap) 1969 Pneumococcal Vaccine: 50+ Years (1 of 1 - PCV) 2000 Zoster Vaccines (1 of 2) 2000 RSV Immunization or 60+ Years (1 - Risk 60-74 years 1-dose series) 2010 COVID-19 Vaccine (4 - 2023-2 5 season) 2024 07/19/2021, 12/22/2020, 11/24/2020 Colorectal Cancer Screening Colonoscopy (10 Years) 01/26/2032 [...] Most Recently Relevant to Health Maintenance Insurance Care Teams Engraver [employer]ire Mold Relationship Specialty Start Date End Date Shabbir White MD [address] [place] [address] PCP - General 08/09/12
--- NOTE | 2025-02-12 12:42 | ED.HA ---
HPI - Headache General Chief Complaint: Headache Stated Complaint: headache x1 week Time Seen by Provider: 02/12/25 12:23 History of Present Illness HPI Narrative: 74-year-old male with a past medical history including recent coronary artery bypass grafting at [facility] in the beginning of January. He is approximately 3 weeks postop and was discharged from their facility on the . Patient presents to the emergency room with a left-sided temporal headache for last few days. He has some pain as reproducible palpation in left side of his uatsdin scalp but no visual deficits or visual changes. No jaw claudication, no nausea, vomiting, neuropathy. He had an IJ catheter in his right side and no cannulation or surgery in his left-sided neck. They did carotid Doppler ultrasound that showed 50% stenosis bilaterally. No history of temporal arteritis but this is what the patient is worried about according to him. Take some Tylenol oxycodone without any significant relief. No neuropathy or neurological deficits. States his visual field is at baseline with 20/30 left eye vision that is unchanged. History of eye surgeries in the past. Related Data Home Medications ?Medication ?Instructions ?Recorded ?Confirmed ?Last Taken ?Type famotidine 20 mg tablet 20 mg PO BID 06/28/22 01/03/25 Unknown History omega 4-eqc-aov-fish oil 1,000 mg 1 cap PO DAILY 08/14/23 01/03/25 Unknown History (120 mg-180 mg) capsule (Fish Oil) latanoprost 0.005 % eye drops 1 drp EACH EYE HS 05/17/24 01/03/25 Unknown History (Xalatan) metoprolol succinate 25 mg 12.5 mg PO DAILY 05/17/24 01/03/25 05/19/24 History tablet,extended release 24 hr vitamins A,C,D-jmci-xtlrnn 4,296 1 cap PO BID 08/16/24 01/03/25 Unknown History mcg-226 mg-90 mg capsule (PreserVision AREDS) ibuprofen 200 mg tablet (IBU-200) 400 mg PO Q6H PRN pain 01/03/25 01/03/25 Unknown History Allergies Allergy/AdvReac Type Severity Reaction Status Date / Time No Known Allergies Allergy Verified 02/12/25 12:32 Review of Systems Review of Systems: As reviewed above in HPI [facility] Surgical History Surgical History History of coronary artery bypass graft (01/2025) X4 History of orchiectomy, unilateral (04/2024) Right for persistent orchalgia History of epididymectomy (08/2023) right Family History Family History Father Hypertension Mother Osteoporosis Sibling Breast cancer Other Family history of glaucoma Family history of osteoporosis Social History Social History Smoking packs per day: 1.25 Smoking cigarettes per day: 25.0 Years smoked: 20 Smoking pack-years: 25.00 Smoking status: Former smoker Tobacco type: cigarettes Smoking end date: 08/14/86 Alcohol intake: current Drinks per week: 7 Substance use type: does not use Lack of Transportation: No Lack of Food: Never True Current Housing: I Have Housing Concerned About Future Housing: No Difficulty Paying Gas/Electric Bills: No Difficulty Paying for Meds: No Currently Unemployed: No Education: Master's Degree or Higher Difficulty w/ Childcare or Family Care: No Living arrangements: with family Additional living arrangements comments: Spiritual care concerns: No Exam Narrative: GENERAL: [Well-appearing, well-nourished, and in no acute distress.] HEAD: [Normocephalic, atraumatic.] Reproducible tenderness along the left-sided temporal scalp without any throbbing pulsatile masses or jaw claudication. No trismus. Pain not reproducible with manipulation of the neck or head EYES: [PERRLA and EOMI.] ENT: Nares clear, no rhinorrhea or epistaxis. Mucous membranes moist. NECK: Supple. CHEST: [Clear to auscultation. No respiratory distress.] HEART: [Regular rate and rhythm]. No murmur heard. [Normal peripheral pulses.] ABDOMEN: [Soft, nondistended], [nontender], [No rigidity or guarding] EXTREMITIES: Normal range of motion. [No edema.] SKIN: Warm, dry, no rash. NEURO: [No focal deficits]. Alert and oriented [x3.] PSYCH: [Normal mood and affect.] Course Vital Signs Vital signs: Vital Signs Temperature 36.1 C L 02/12/25 12:26 Pulse Rate 97 02/12/25 12:26 Respiratory Rate 18 02/12/25 12: Blood Pressure 141/71 H 02/12/25 12:26 Pulse Oximetry 97 02/12/25 12: Oxygen Delivery Room Air 02/12/25 12:26 Temperature 36.1 C L 02/12/25 12:26 Pulse Rate 97 02/12/25 12: Respiratory Rate 18 02/12/25 12: Blood Pressure 141/71 H 02/12/25 12: Pulse Oximetry 97 02/12/25 12:26 Oxygen Delivery Room Air 02/12/25 12:26 MDM - Headache MDM Narrative Medical decision making narrative: 74-year-old male presenting with left-sided temporal pain for the last 5 days. Recently underwent cardiac surgery at [facility] in [place] with coronary artery bypass grafting done. He is recovering well and followed up with his cardiac surgeon 2 days ago with improvement and changes to his medications to decrease does including lower dose of amiodarone and Lasix. Patient denies any visual deficits, has chronic 20/30 visual acuity in the left eye. No jaw claudication or trismus. No neurological deficits. He states he has some reproducible pain palpating his left upper side of the face which is seen on examination but there is no palpable masses or pulsatile sensation here. Patient is concerned about temporal arteritis but has no jaw claudication or visual deficits which makes this less likely. Suspicion presently is for headache, musculoskeletal temporal pain in the temporal muscles, possibility of a thromboembolic event given that he had cannulation of the right IJ but not the left IJ for the cardiac surgery. We discussed inflammatory markers and that they might be persistently elevated from his surgery and skipping the results so we will proceed with CT angiography for better elucidation of any potential stenosis or vasoactive process. Low suspicion for acute thromboembolic disease especially with his negative carotid Dopplers done during his last hospital visit. CBC, BMP, ESR and CRP added on to a CT angiography of the head neck. Patient's laboratory studies showed no significant leukocytosis, anemia of 9.8 with no recent baseline postoperative to compare to. Normal renal function, normal electrolytes. CRP elevated at 5.7 an ESR 90. Patient is acutely perioperative in these elevations are nonspecific and more likely related to his open heart surgery and sternotomy. CT angiography shows no significant stenosis of the carotid arteries, no acute intracranial process, 50% stenosis of the right P1 segment without a significant stenosis of the carotid siphons or bulbs. No specific finding that would correlate for etiology of symptoms. Patient was re-evaluated and still had no visual complaints, jaw claudication or significant reproducible tenderness. I discussed his elevated ESR and CRP with him and the CT findings. We had shared decision-making at this juncture and given that he has no significant complaints other than a left-sided headache that he does not necessarily need emergent transfer to a tertiary care center or steroid initiation, but I did offer to transfer him for further workup. I once again went over the signs and symptoms of temporal arteritis and other emergent concerns for his headache which he verbalized understanding and would like to pursue this outpatient rather than transfer. Patient does have a primary care provider that he can see on Friday with Dr. Chaudhry and his stated that they will get that appointment to further discuss this and any other further workup that are needed. They were comfortable with going home at this time and understood the red flag signs and symptoms to look out for and return for. Patient safely discharged home at this time. Medical Records Attestation: I reviewed the patient's medical records. Lab Data Attestation: I reviewed the patient's lab results. 02/12/25 13:24 02/12/25 13:38 Labs: Lab Results 02/12/25 02/12/25 Range/Units 13:24 13:38 WBC 10.4 H (4.5-10.0) K/mm3 RBC 3.21 L (4.6-6.20) M/mm3 Hgb 9.8 L D (14.0-18.0) g/dL Hct 31.3 L (42.0-52.0) % MCV 97.5 (80-100) fl MCH 30.5 (26-34) pg MCHC 31.3 L (32-36) g/dl RDW 14.1 (11.5-14.5) % Plt Count 582 H D (150-375) k/mm3 MPV 8.4 (7.4-10.4) fl Immature Gran % (Auto) 0.6 H (0-0.5) % Neut % (Auto) 75.4 H (45.5-73.1) % Lymph % (Auto) 9.4 L (18.3-44.2) % [place] % (Auto) 12.3 H (2.6-8.5) % Eos % (Auto) 1.4 (0-4.4) % Baso % (Auto) 0.9 (0.2-1.2) % Lymph # (Auto) 0.98 (0.9-3.2) K/mm3 [place] # (Auto) 1.3 H (0.1-0.6) K/mm3 Eos # (Auto) 0.2 (0-0.3) K/mm3 Baso # (Auto) 0.1 (0.0-0.1) K/mm3 Abs Immat Gran (auto) 0.06 H (0.00-0.031) K/mm3 Absolute Neuts (auto) 7.9 H (1.3-6.7) K/mm3 Absolute Nucleated RBC 0.000 (0.0-0.012) K/mm3 Nucleated RBC % 0.0 (0.0-0.2) % ESR 90 H (0-20) mm/hr Sodium 136 L (137-145) mmol/L Potassium 3.8 (3.4-5.0) mmol/L Chloride 100 (98-107) mmol/L Carbon Dioxide 28 (22-30) mmol/L Anion Gap 8 (4-12) mmol/L BUN 15 (9-20) mg/dL Creatinine 1.05 1.10 (0.7-1.3) mg/dL Estim Creat Clear Calc 51 49 ml/min Estimated GFR > 60 > 60 (59 - ) Glucose 195 H (65-110) mg/dL Calcium 8.7 (8.4-10.2) mg/dL C-Reactive Protein 5.7 H (<1.0) mg/dL Imaging Data Attestation: I personally reviewed and interpreted this imaging study as follows: My impression: Impressions Head/Neck CTA 02/12/25 13:55 IMPRESSION: 1. 20% stenosis of the right carotid bulb relative to normal distal artery lumen diameter (NASCET criteria). 2. 0% stenosis of the left carotid bulb relative to normal distal artery lumen diameter. 3. No acute intracranial process. Moderate scattered white matter hypoattenuation consistent with chronic small vessel ischemic disease. 4. 50% stenosis at the right P1 segment and scattered plaque with no significant stenosis at the bilateral carotid siphons. 5. Severe stenosis at the origins of the diminutive right and dominant left vertebral arteries. 6. Small right and tiny left posterior layering pleural effusions. Discharge Plan Discharge Clinical Impression: Left-sided headache, History of coronary artery bypass graft Patient Disposition: Home Condition: Stable Instructions: Antibiotic Form Additional Instructions: Your inflammatory markers are slightly elevated with an ESR of 98, CRP of 5.7. This is most likely secondary to your open heart surgery just 2 weeks ago and will remain persistently elevated however with the left-sided headache we did elect to get CT angiography imaging that does not show any significant findings other than your known 50% stenosis. If you have developing symptoms such as fever, vision loss, worsening headache, jaw symptoms, pain or vision changes with jaw movement or any other concerns please seek re-evaluation otherwise call your primary care provider on Friday for close follow-up visit. Patient Language: Belarusian Prescriptions: No Action famotidine 20 mg tablet 20 mg PO BID acetaminophen-codeine 300-30 mg tablet 1 tablet PO QID PRN (Reason: pain) Qty: 60 1RF clonazepam 0.5 mg tablet,disintegrating 0.5 mg PO BID Qty: 60 5RF PreserVision AREDS 4,296 mcg-226 mg-90 mg capsule 1 cap PO BID omega 9-jsa-clc-fish oil [Fish Oil] 1,000 mg (120 mg-180 mg) Capsule 1 cap PO DAILY metoprolol succinate 25 mg tablet extended release 24 hr 12.5 mg PO DAILY Patient Comments: QAM Rx Instructions: Takes 12.5mg. latanoprost [Xalatan] 0.005 % drops 1 drp EACH EYE HS ibuprofen [IBU-200] 200 mg tablet 400 mg PO Q6H PRN (Reason: pain) finasteride 5 mg tablet 5 mg PO DAILY Qty: 90 3RF Patient Comments: am Follow-up/Referrals: Shabbir White MD [Primary Care Provider] - 2 Days (Follow-up your visit, left-sided headache) Time of Disposition: 15:22
--- OUTSIDE RECORDS SUMMARY | 2025-02-12 12:58 | XMS_ITS | Referral Summary ---
Author Organization [facility] C Address [address] [facility] [place] [address] Care Team Providers Care Reference And Instruction Librarian Name Role Phone Shabbir White MD Primary Care Prov ider Kasia Maldonado MD Unavailable [phone] Gera Patricio MD Unavailable [phone] Miscellaneous, Not In File Unavailable Unava ilable Encounters Date Type Department Care Team Description 02/10/2025 Orders Only [facility] Surgery [address] [place] [address] [address] [place] [address] Jordan Escalera NP 02/10/2025 10:05 AM CDT Lab [address] [address] Coronary artery disease involving [place] coronary artery of [place] heart without angina pectoris 02/10/2025 9:30 AM CDT Office Visit [facility] Surgery [address] [place] [address] [address] [place] [address] Jordan Escalera NP Coronary artery disease of [place] heart with stable angina pectoris, unspecified vessel or lesion type (Primary Dx) 02/07/2025 Orders Only [facility] Surgery [address] [place] [address] [address] [place] [address] Jordan Escalera NP Coronary artery disease involving [place] coronary artery of [place] heart without angina pectoris (Primary Dx) 02/07/2025 Documentation [facility] Surgery [address] [place] [address] [address] [place] [address] Jordan Escalera NP 02/04/2025 1:51 PM CDT - 02/04/2025 11:59 PM CDT Hospital Encounter [facility] Diagnostic Imaging [address] [place] [address] Coronary artery disease involving [place] coronary artery of [place] heart without angina pectoris Discharge Disposition: Discharge to home or self care 02/04/2025 Orders Only [facility] Surgery [address] [place] [address] [address] [place] [phone] Jordan Escalera NP 02/04/2025 Orders Only [facility] Surgery [address] [place] [address] [address] [place] [phone] Jordan Escalera NP Coronary artery disease involving [place] coronary artery of [place] heart without angina pectoris (Primary Dx) 02/04/2025 10:[address] [facility] Lab [address] [place] [address] 02/04/2025 10:[address] [facility] [address] [place] [address] Burning with urination 02/04/2025 Orders Only [facility] Surgery [address] [place] [phone] Jordan Escalera NP Burning with urination (Primary Dx) 02/03/2025 Documentation [facility] Surgery [address] [place] [address] [address] [place] [phone] Rabia Becerra NP 02/02/2025 [facility] Post Discharge Follow up phone call [address] [address] Evangelina Khan 01/31/[address] [facility] Medical Group Cardiology [address] [place] [address] [place] [phone] Alaina Henderson NP 01/26/2025 7:23 AM CDT - 01/31/2025 4:56 PM CDT Hospital Encounter [address] [address] Kasia Maldonado MD Coronary artery disease of bypass graft of [place] heart with stable angina pectoris (Primary Dx); Coronary artery disease of [place] artery of [place] heart with stable angina pectoris; Coronary artery disease of [place] heart with stable angina pectoris, unspecified vessel or lesion type Discharge Disposition: Discharge to home, home health skilled care 01/26/2025 9:35 AM CDT - 01/26/2025 2:35 PM CDT Surgery [facility] Operating Room [address] [place] [address] Kasia Maldonado MD CABG X 4 with LEFT AND RIGHT INTERNAL MAMMARY ARTERY HARVEST AND RIGHT LEG ENDOVEIN HARVEST 01/26/2025 8:55 AM CDT Anesthesia Event [facility] Operating Room [address] [place] [address] José Manuel Torres MD Eldin, Ali S., MD 01/24/2025 Documentation [facility] Surgery [address] [facility] [address] [place] [phone] Jordan Escalera NP 01/24/2025 11:16 AM CDT - 01/24/2025 11:59 PM CDT Hospital Encounter [facility] Diagnostic Imaging [address] [place] [address] Discharge Disposition: Discharge to home or self care 01/24/2025 10:45 AM CDT Pre-Admission Testing [facility] Pre Anesthesia Testing [address] [place] [address] Coronary artery disease of [place] heart with stable angina pectoris, unspecified vessel or lesion type 01/20/[address] [facility] Medical Group Cardiology [address] [facility] [address] [place] [address] Anabell Saini MD 01/20/2025 10:00 AM CDT - 01/20/2025 11:30 AM CDT Surgery [facility] Cardiac Catheterization Lab [address] [place] [address] Anabell Saini MD LEFT HEART CATHETERIZATION WITH CORONARY ANGIOGRAPHY AND WITH OR WITHOUT LEFT VENTRICULOGRAM [id number] 01/20/2025 7:35 AM CDT - 01/20/2025 2:21 PM CDT Hospital Encounter [facility] Cardiac Catheterization Lab [address] [place] [address] Anabell Saini MD Other chest pain Discharge Disposition: Discharge to home or self care 01/13/2025 Telephone [facility] Cardiology [address] [place] [phone] Gera Patricio MD 01/12/2025 Results Follow-Up [facility] Cardiology [address] [facility] [address] [place] [phone] Gera Patricio MD Atypical chest pain (Primary Dx) 01/12/2025 Telephone [facility] Cardiology [address] [facility] [address] [place] [address] Gera Patricio MD 01/12/2025 1:35 PM CDT - 01/12/2025 11:59 PM CDT Hospital Encounter [facility] Imaging [address] [place] [id number] Atypical chest pain; History of atrial fibrillation; History of PSVT (paroxysmal supraventricular tachycardia); Essential hypertension Discharge Disposition: Discharge to home or self care 01/10/2025 Telephone [facility] Imaging [address] [place] [id number] Esthela Perdomo RN 12/15/2024 2:00 PM SANDWICH MACHINE OPERATOR Office Visit [facility] Cardiology at [address] [place] [phone] Gera Patricio MD Atypical chest pain (Primary [...] now. Assessment & Plan (09/09/2023 1:08 PM SANDWICH MACHINE OPERATOR): 2/2 RK OU, patient having issues with I/R and having other health issues Would like to return lenses and try again at another time. Will return Standish lenses and RTC for refit in future [...] next exam OS RTC for dispense reF# [id number] Assessment & Plan (05/23/2023 4:00 PM CDT): 2/2 RK OU, possible OHx of amblyopia OD; patient states that OD (even prior to RK) has never seen as well as OS Educated patient on options, corneal GP (would need reverse kate design) vs scleral Patient concerned about dryness and comfort, will go ahead with scleral fit today Today with Standish 16.0, excellent comfort OU: OD: 450um central, minimal limbal. Slighlt toe impingement 360, better periphery with flat lens OS: 450um central, minimal limbal. Slight toe impitngement 360, better periphery with flat and better vision with FSE2 Flat periphery / FSE2 / aim for 280um central clearance with adjustments today BCVA 20/30- OD; 20/25-- OS RTC for dispense Ref# [id number] Assessment & Plan (12/11/2022 4:19 PM SANDWICH MACHINE OPERATOR): Patient is s/p 1 cut RK OU and has to change between several pairs of glasses through the day due to fluctuations in refractive error. Pt has been told about scleral lenses in the past and is interested in trying them. Will consult with Dr. Rivera and schedule and evaluation. Retinal drusen of both eyes 06/05/2022 Assessment & Plan (12/11/2022 4:19 PM SANDWICH MACHINE OPERATOR): Mild and stable. F/u annually. Assessment & [...] CPM. Assessment & Plan (11/28/2021 1:23 PM SANDWICH MACHINE OPERATOR): Continue ATs prn. Assessment & Plan (05/30/2021 2:28 PM CDT): PF ATs prn. Assessment & Plan (01/31/2021 1:46 PM CDT): Well controlled with artificial tears. CPM Assessment & Plan (12/13/2020 1:16 PM SANDWICH MACHINE OPERATOR): Pt feels his symptoms are well controlled [...] 10/26/2019 Assessment & Plan (10/29/2019 7:17 PM SANDWICH MACHINE OPERATOR): Chest pain is atypical in that it occurs only sometimes in his in various locations of his chest. I am suspicious that it is musculoskeletal, but would recommend a stress test. As his EKG is normal, imaging is not required. Biceps tendinitis of right upper extremity 11/25 Overview (11/25/2018): Added automatically from request for surgery [id number] Incomplete tear of right rotator cuff 11/25/2018 Overview (11/25/2018): Added automatically from request for surgery [id number] Open angle with borderline f indings and [...] ck. Assessment & Plan (12/11/2022 4:18 PM SANDWICH MACHINE OPERATOR): Mild OAG vs suspect. Started on tx [...] ck. Assessment & Plan (11/28/2021 1:23 PM SANDWICH MACHINE OPERATOR): Mild OAG vs suspect. IOP well controlled [...] irritation. Assessment & Plan (12/13/2020 1:21 PM SANDWICH MACHINE OPERATOR): IOP stable on 1 class. Travatan is [...] OU Assessment & Plan (12/11/2022 4:19 PM SANDWICH MACHINE OPERATOR): S/p RK OU Assessment & Plan (06/05/2022 3:57 PM CDT): S/p 16 incision RK. Stable. Observe. Assessment & Plan (11/28/2021 1:23 PM SANDWICH MACHINE OPERATOR): S/p 16 incision RK OU Assessment & [...] = 0.6 oz pur e alcohol) nightly [facility] Utilities Answer Date Recorded In the past 12 months has e electric, gas, oil, or water [email or web address] threatened to shut off services in your [...] week 01/31/2025 How often do you attend [facility] or tenriism services? Never 01/31/2025 Do you belong to any clubs o r organizations such as mormon groups, unions, fraternal or athletic groups, or [...] any time in the past 12 [facility], were you homeless or living in a skilled nursing (including now)? No 01/31/2025 Personal Safety Answer Date Recorded Have you ever been in or are you currently in a harmful physical or emotional relationship or is someone making you feel afraid or unsafe? Denies 01/26/2025 Sex and Gender Information Value Date Recorded Sex Assigned at Not on file Legal Sex Male 2:36 AM SANDWICH MACHINE OPERATOR Gender Identity Not on file Sexual [...] on file Medical Devices Implanted Type Area Casey Saw Operator Device Identifier Shelf Expiration Date Model / Serial / Lot FMS [employer] Plate Bone Low Profile 4 Hole Box Sternum Ti 115.103.04 - [id number] Implanted:Qty: 1 on 01/26/2025 by Kasia Maldonado MD at [facility] Plate N/A: Sternum [employer] 115.103.04 / / [employer] Plate Bone Low Profile 6 Hole H Shape Sternum Ti 115.102.06 - [id number] Implanted:Qty: 1 on 01/26/2025 by Kasia Maldonado MD at [facility] Plate N/A: Sternum [employer] 115.102.06 / / [employer] Plate Bone Low Profile 6 Hole O Shape Sternum Ti 115.104.06 - [id number] Implanted:Qty: 1 on 01/26/2025 by Kasia Maldonado MD at [facility] Plate N/A: Sternum [employer] 115.104.06 / / [employer] Screw Bone Slf Drl Full Thread Locking 3.5x18mm Ti 100.035.18 - [id number] Implanted:Qty: 16 on 01/26/2025 by Kasia Maldonado MD at [facility] Screw N/A: Sternum [employer] 100.035.18 / / Procedures Procedure Name Priority Date/Time Associated Diagnosis Comments EGFR Routine 02/10/2025 10:33 AM CDT Coronary artery disease involving [place] coronary artery of [place] heart without angina pectoris CBC WITHOUT DIFFERENTIAL Routine 02/10/2025 10:33 AM CDT Coronary artery disease involving [place] coronary artery of [place] heart without angina pectoris COMPREHENSIVE METABOLIC PANEL Routine 02/10/2025 10:33 AM CDT Coronary artery disease involving [place] coronary artery of [place] heart without angina pectoris XR CHEST PA LATERAL 2 VIEWS Schedule Routine, Read Routine (OP Routine) 02/04/2025 1:58 PM CDT Coronary artery disease involving [place] coronary artery of [place] heart without angina pectoris EGFR Routine 02/04/2025 [...] 4:27 PM CDT Coronary artery disease of [place] artery of [place] heart with stable angina pectoris POCT GLUCOSE [...] 5:45 PM CDT Coronary artery disease of [place] artery of [place] heart with stable angina pectoris POCT GLUCOSE [...] LINE PLACEMENT Routine 01/26/2025 9:33 AM CDT NC AN ELECTIVE ENDOTRACHEAL AIRWAY Routine 01/26/2025 9:32 AM CDT ANESTHESIA ARTERIAL LINE PLACEMENT Routine 01/26/2025 9:31 AM CDT POC BLOOD GAS AND CHEMISTRIES, ARTERIAL Routine 01/26/2025 9:24 AM CDT POCT ACTIVATED CLOTTING TIME, HIGH RANGE Routine 01/26/2025 9:22 AM CDT EXPLORATION CHEST 01/26/2025 8:55 AM CDT Coronary artery disease of [place] heart with stable angina pectoris, unspecified vessel or lesion type CORONARY ARTERY BYPASS GRAFT - INTERNAL MAMMARY ARTERY 01/26/2025 8:55 AM CDT Coronary artery disease of [place] heart with stable angina pectoris, unspecified vessel or lesion type B CHECK SAMPLE STAT 01/26/2025 8:20 AM CDT PREPARE RBC STAT 01/26/2025 7:59 AM CDT POCT GLUCOSE DEVICE Routine 01/26/2025 7:43 AM CDT ECG 12-LEAD Routine 01/24/2025 11:43 AM CDT Coronary artery disease of [place] heart with stable angina pectoris, unspecified vessel or lesion type XR CHEST PA LATERAL 2 VIEWS Schedule Routine, Read Routine (OP Routine) 01/24/2025 11:28 AM CDT Coronary artery disease of [place] heart with stable angina pectoris, unspecified vessel or lesion type EGFR Routine 01/24/2025 11:11 AM CDT Coronary artery disease of [place] heart with stable angina pectoris, unspecified vessel or lesion type BASIC METABOLIC PANEL Routine 01/24/2025 11:11 AM CDT Coronary artery disease of [place] heart with stable angina pectoris, unspecified vessel or lesion type PROTIME-INR Routine 01/24/2025 11:11 AM CDT Coronary artery disease of [place] heart with stable angina pectoris, unspecified vessel or lesion type APTT Routine 01/24/2025 11:11 AM CDT Coronary artery disease of [place] heart with stable angina pectoris, unspecified vessel or lesion type CBC WITHOUT DIFFERENTIAL Routine 01/24/2025 11:11 AM CDT Coronary artery disease of [place] heart with stable angina pectoris, unspecified vessel or lesion type TYPE AND SCREEN Routine 01/24/2025 11:11 AM CDT Coronary artery disease of [place] heart with stable angina pectoris, unspecified vessel or lesion type URINALYSIS AND REFLEX TO MICROSCOPIC AND CULTURE Routine 01/24/2025 11:11 AM CDT Coronary artery disease of [place] heart with stable angina pectoris, unspecified vessel [...] POCT LIPID PANEL Routine 12/15/2024 2:28 PM SANDWICH MACHINE OPERATOR Essential hypertension ELECTROCARDIOGRAM REPORT Routine 12/15/2024 8:17 AM SANDWICH MACHINE OPERATOR Atypical chest pain History of PSVT (paroxysmal [...] NP LAB BLOOD ORDERABLES Final Result [facility] [address] [place] [address] * (ABNORMAL) CBC without differential (02/10/2025 10:33 AM CDT) WBC 13.51(H) 3.80 - 9.90 K/cumm Hgb 9.7(L) 13.0 - 17.5 g/dL [facility] Hct 30.4(L) 38.9 - 50.3 % [facility] Plt 689(H) 150 - 400 K/cumm [facility] MPV 8.9(L) 9.1 - 12.3 fL [facility] RBC 3.14(L) 4.30 - 5.80 M/cumm [facility] MCV 96.8(H) 81.3 - 96.4 fL [facility] MCH 30.9 27.1 - 33.3 pg [facility] MCHC 31.9(L) 32.3 - 35.7 g/dL [facility] RDW CV 14.4 11.1 - 14.9 % [facility] RDW SD 50.6(H) 35.7 - 48.1 fL [facility] NRBC abs 0.00 0.00 - 0.01 K/cumm [facility] Blood 02/10/2025 10:3 3 AM CDT 02/10/2025 2:16 PM CDT Jordan Escalera NP LAB [place]LO[place] [address] Department [place] [address] * (ABNORMAL) Comprehensive metabolic panel (02/10/2025 10:33 [...] 02/10/2025 2:16 PM CDT us Jordan Escalera TRAFFIC DIVISION COMMANDING OFFICER LAB BLOOD ORDERABLES Final Result [facility] [address] [place] [address] * X-ray chest 2 views (02/04/2025 1:58 [...] Hollis Gonzalez M.D. MJ: ANYA Report ID: [id number] Reading Location: [id number] Procedure Note Hollis Gonzalez MD - 02/05/2025 [...] Hollis Gonzalez M.D. MJ: ANYA Report ID: [id number] Reading Location: [id number] us Jordan Escalera TRAFFIC DIVISION COMMANDING OFFICER IMG XR PROCEDURES Final Res ult * [...] last reviewed 2021. Testing performed by: [address] [address] Blood 02/04/2025 10:3 3 AM CDT 02/04/2025 11:17 AM CDT us Jordan Escalera NP LAB BLOOD ORDERABLES Final Result [facility] Department [place] [address] * (ABNORMAL) Differential, auto (02/04/2025 10:33 AM CDT) Neutrophil abs 10.94(H) 1.50 - 6.50 K/cumm Comment:Testing performed by : [address] [address] Imm gran abs 0.25(H) 0.00 - 0.10 K/cumm [facility] Comment:Testing performed by : [address] [address] Lymphocyte abs 1.77 0.80 - 3.30 K/cumm [facility] Comment:Testing performed by : [address] [address] Monocyte abs 1.58(H) 0.20 - 0.80 K/cumm [facility] Comment:Testing performed by : [address] [address] Eosinophil abs 0.27 0.00 - 0.50 K/cumm [facility] Comment:Testing performed by : [address] [address] Basophil abs 0.09 0.00 - 0.10 K/cumm [facility] Comment:Testing performed by : [address] [address] Neutrophil pct 73.4 % [facility] Comment: Interpretive Data Percent cell count reference ranges are not reported, since discordance with absolute values may lead to misinterpretation of CBC data. Current Interpretive Data was last revised on 2018. Testing performed by: [address] [address] Imm gran pct 1.7 % [facility] Comment: Interpretive Data Percent cell count reference ranges are not reported, since discordance with absolute values may lead to misinterpretation of CBC data. Current Interpretive Data was last revised on 2018. Testing performed by: [address] [address] Lymphocyte pct 11.9 % [facility] Comment: Interpretive Data Percent cell count reference ranges are not reported, since discordance with absolute values may lead to misinterpretation of CBC data. Current Interpretive Data was last revised on 2018. Testing performed by: [address] [address] Monocyte pct 10.6 % [facility] Comment: Interpretive Data Percent cell count reference ranges are not reported, since discordance with absolute values may lead to misinterpretation of CBC data. Current Interpretive Data was last revised on 2018. Testing performed by: [address] [address] Eosinophil pct 1.8 % [facility] Comment: Interpretive Data Percent cell count reference ranges are not reported, since discordance with absolute values may lead to misinterpretation of CBC data. Current Interpretive Data was last revised on 2018. Testing performed by: [address] [address] Basophil pct 0.6 % [facility] Comment: Interpretive Data Percent cell count reference ranges are not reported, since discordance with absolute values may lead to misinterpretation of CBC data. Current Interpretive Data was last revised on 2018. Testing performed by: [address] [address] Blood 02/04/2025 10:3 3 AM CDT 02/04/2025 11:19 AM CDT us Jordan Escalera TRAFFIC DIVISION COMMANDING OFFICER LAB BLOOD ORDERABLES Final Result [facility] [address] [facility] Department [place] [address] * Urinalysis reflex to microscopic and culture Urine, clean voided (02/04/2025 10:33 AM CDT) Color, ur Straw Yellow Comment:Testing performed by : [address] [address] Clarity, ur Clear Clear [facility] Comment:Testing performed by : [address] [address] Specific gravity, ur 1.010 1.003 - 1.030 [facility] Comment:Testing performed by : [address] [address] pH, urine 6.5 [facility] Comment: Interpretive Data U rine pH is affected by diet, medications, systemic acid-base disturbances, and renal tubular function. pH may affect urinary stone formation. For example, urine pH below 6.0 may help reduce the tendency for calcium phosphate stones and pH greater than 6.0 may reduce the tendency for uric acid stone formation. Source: [facility] News360 Current Interpretive Data was last revised on 2017 Testing performed by: [address] [address] Protein, ur ql Negative Negative [facility] Comment:Testing performed by : [address] [address] Glucose, ur ql Negative Negative [facility] Comment:Testing performed by : [address] [address] Ketones, ur Negative Negative [facility] Comment:Testing performed by : [address] [address] Bilirubin, ur Negative Negative [facility] Comment:Testing performed by : [address] [address] Blood, ur Negative Negative [facility] Comment:Testing performed by : [address] [address] Urobilinogen, ur <2.0 <2.0 mg/dL [facility] Comment:Testing performed by : [address] [address] Nitrite, ur Negative Negative [facility] Comment:Testing performed by : [address] [address] Leukocyte esterase, ur Negative Negative [facility] Comment:Testing performed by : [address] [address] UA reflex comment Reflex conditions for microscopic UA and culture not met. [facility] Comment:Testing performed by : [address], [place]., [address] Urine, clean voided 02/04/2025 10:33 AM CDT 02/04/2025 11:37 AM CDT us Jordan Escalera NP LAB MICROBIOLOGY - GENERAL ORDERABLES Final Result [facility] [address] [facility] Department [place] [address] * (ABNORMAL) CBC with auto differential (02/04/2025 10:33 AM CDT) WBC 14.90(H) 3.80 - 9.90 K/cumm Comment:Testing performed by : [address] [address] Hgb 8.9(L) 13.0 - 17.5 g/dL [facility] Comment:Testing performed by : [address] [address] Hct 27.4(L) 38.9 - 50.3 % [facility] Comment:Testing performed by : [address] [address] Plt 483(H) 150 - 400 K/cumm [facility] Comment:Testing performed by : [address] [address] MPV 9.4 9.1 - 12.3 fL [facility] Comment:Testing performed by : [address] [address] RBC 2.88(L) 4.30 - 5.80 M/cumm [facility] Comment:Testing performed by : [address], [address] MCV 95.1 81.3 - 96.4 fL [facility] Comment:Testing performed by : [address] [address] MCH 30.9 27.1 - 33.3 pg [facility] Comment:Testing performed by : [address], [address] MCHC 32.5 32.3 - 35.7 g/dL [facility] Comment:Testing performed by : [address], [address] RDW CV 14.1 11.1 - 14.9 % [facility] Comment:Testing performed by : [address], [address] RDW SD 48.6(H) 35.7 - 48.1 fL [facility] Comment:Testing performed by : [address], [address] NRBC abs 0.00 0.00 - 0.01 K/cumm [facility] Comment:Testing performed by : [address], [address] Blood 02/04/2025 10:3 3 AM CDT 02/04/2025 11:19 AM CDT us Jordan Escalera TRAFFIC DIVISION COMMANDING OFFICER LAB BLOOD ORDERABLES Final Result [facility] [address] [facility] Department [place] [address] * (ABNORMAL) Comprehensive metabolic panel (02/04/2025 10:33 AM CDT) Sodium 130(L) 135 - 145 mmol/L Comment:Testing performed by : [address], [address] Potassium, pl 4.6 3.3 - 4.9 mmol/L [facility] Comment:Testing performed by : [address], [place]., [address] Chloride 96(L) 97 - 110 mmol/L [facility] Comment:Testing performed by : [address], [place]., [address] CO2 24 22 - 32 mmol/L [facility] Comment:Testing performed by : [address], [place]., [address] Anion gap 10 2 - 15 mmol/L [facility] Comment:Testing performed by : [address], [place]., [address] BUN 29(H) 6 - 25 mg/dL [facility] Comment:Testing performed by : [address], [place]., [address] Creatinine 1.02 0.80 - 1.30 mg/dL [facility] Comment:Testing performed by : [address], [place]., [address] Glucose 204(H) 70 - 199 mg/dL [facility] Comment: Interpretive Data Fasting glucose >/= [...] last revised 2022. Testing performed by: [address] [address] Calcium 9.0 8.5 - 10.3 mg/dL [facility]A Comment:Testing performed by : [address] [address] Bilirubin, total 0.4 0.1 - 1.2 mg/dL AYAKA Comment:Testing performed by : [address] [address] Protein, pl 6.8 6.5 - 8.5 g/dL AYAKA Comment:Testing performed by : [address] [address] Albumin 3.4(L) 3.5 - 5.0 g/dL AYAKA Comment:Testing performed by : [address] [address] Alk phos 78 40 - 130 Units/L AYAKA Comment:Testing performed by : [address] [address] ALT 23 7 - 55 Units/L AYAKA Comment:Testing performed by : [address] [address] AST 30 10 - 50 Units/L [facility]A Comment:Testing performed by : [address] [address] Blood 02/04/2025 10:3 3 AM CDT 02/04/2025 11:17 AM CDT us Jordan Escalera NP LAB BLOOD ORDERABLES Final Result [facility] Department [place] [address] * eGFR (01/31/2025 6:15 AM CDT) eGFR [...] ORDERABLES Final Res ult Performing Organization Address [facility] Co de Phone Number [facility] [address] [address] [facility] [address] [place] [address] * (ABNORMAL) aPTT (01/31/2025 6:15 AM CDT) [...] ORDERABLES Gale l Result Performing Organization Address [facility] de Phone Number [facility] [address] [address] [facility] [address] [place] [address] * Protime-INR (01/31/2025 6:15 AM CDT) PT 12.9 9.7 - 13.0 sec INR 1.19 0.90 - 1.20 [facility] Comment: Interpretive data Oral anticoagulant therapeutic ranges: Venous thromboembolism prophylaxis or treatment: 2.0-3.0 CARDIOLOGY Standard range: 2.0-3.0 High-intensity range: 2.5-3.5 Refer to indication-specific guidelines for appropriate target ranges for prosthetic heart valve replacement. Current interpretive data was last revised on 2019. Blood 01/31/2025 6:15 AM CDT 01/31/2025 6:40 AM CDT Rabia Becerra [employer] LAB BLOOD ORDERABLES Gale l Result Performing Organization Address [facility]/ZIP Co de Phone Number [facility] [address] [address] [place] [address] * (ABNORMAL) CBC without differential (01/31/2025 6:15 AM CDT) WBC 10.85(H) 3.80 - 9.90 K/cumm Hgb 8.4(L) 13.0 - 17.5 g/dL [facility] Hct 25.2(L) 38.9 - 50.3 % [facility] Plt 222 150 - 400 K/cumm [facility] MPV 9.5 9.1 - 12.3 fL [facility] RBC 2.65(L) 4.30 - 5.80 M/cumm [facility] MCV 95.1 81.3 - 96.4 fL [facility] MCH 31.7 27.1 - 33.3 pg [facility] MCHC 33.3 32.3 - 35.7 g/dL [facility] RDW CV 13.8 11.1 - 14.9 % [facility] RDW SD 48.1 35.7 - 48.1 fL [facility] NRBC abs 0.00 0.00 - 0.01 K/cumm [facility] Blood 01/31/2025 6:15 AM CDT 01/31/2025 6:40 AM CDT us Kasia Maldonado MD LAB BLOOD ORDERABLES Final Res ult Performing Organization Address [facility]/ZIP Co de Phone Number A[facility]AKA [address] Department [place] [address] * (ABNORMAL) Basic metabolic panel (01/31/2025 6:15 AM CDT) Sodium 133(L) 135 - 145 mmol/L Potassium, pl 4.1 3.3 - 4.9 mmol/L [facility] Chloride 98 97 - 110 mmol/L [facility] CO2 27 22 - 32 mmol/L [facility] Anion gap 8 2 - 15 mmol/L [facility] BUN 25 6 - 25 [...] LAB BLOOD ORDERABLES Final Res ult [facility] [address] [address] Department [place] [address] * XR Chest 1 View - Portable [...] active infiltrate. The tip of the retracted Brackenridge-Karis catheter is in the distal superior vena cava. Procedure Note Matthew More MD - 01/31/2025 EXAMINATION: XR CHEST 1 VIEW HISTORY: The patient is a 74-year-old male who has had cardiac surgery. Comparison made with the previous study dated 01/30/2025. TECHNIQUE: AP portable view of the chest. FINDINGS: Cardiomegaly with aortic atherosclerosis. No failure. No active infiltrate. The tip of the retracted Brackenridge-Karis catheter is in the distal superior vena [...] infiltrate. The distal tip of a retracted Brackenridge-Karis catheter is in the distal superior vena cava. Procedure Note Matthew More MD - 01/30/2025 EXAMINATION: XR CHEST 1 VIEW HISTORY: The patient is a 74-year-old male who has had cardiac surgery. Comparison made with the previous study dated 01/29/2025 TECHNIQUE: AP portable view of the chest. FINDINGS: Cardiomegaly with aortic atherosclerosis. No failure. No active infiltrate. The distal tip of a retracted Brackenridge-Karis catheter is in the distal superior vena cava. IMPRESSION: No failure. Electronically signed by: Matthew More M.D. us Kasia Maldonado MD [facility] XR PROCEDURES Final Result * eGFR (01/30/2025 [...] AM CDT 01/30/2025 5:48 AM CDT us Kasia Maldonado MD LAB BLOOD ORDERABLES Final Res ult [facility] [address] [address] Department [place] [address] * (ABNORMAL) CBC without differential (01/30/2025 5:00 AM CDT) WBC 12.79(H) 3.80 - 9.90 K/cumm Hgb 8.6(L) 13.0 - 17.5 g/dL [facility] Hct 26.1(L) 38.9 - 50.3 % [facility] Plt 192 150 - 400 K/cumm [facility] MPV 9.7 9.1 - 12.3 fL [facility] RBC 2.73(L) 4.30 - 5.80 M/cumm [facility] MCV 95.6 81.3 - 96.4 fL [facility] MCH 31.5 27.1 - 33.3 pg [facility] MCHC 33.0 32.3 - 35.7 g/dL [facility] RDW CV 13.9 11.1 - 14.9 % [facility] RDW SD 48.7(H) 35.7 - 48.1 fL [facility] NRBC abs 0.00 0.00 - 0.01 K/cumm [facility] Blood 01/30/2025 5:00 AM CDT 01/30/2025 5:33 AM CDT Kasia Maldonado MD LAB BLOOD ORDERABLES Final Res ult [facility] [address] [address] Department [place] [address] * (ABNORMAL) Basic metabolic panel (01/30/2025 5:00 AM CDT) Sodium 132(L) 135 - 145 mmol/L Potassium, pl 4.2 3.3 - 4.9 mmol/L [facility] Chloride 98 97 - 110 mmol/L [facility] CO2 26 22 - 32 mmol/L [facility] Anion gap 8 2 - 15 mmol/L [facility] BUN 30(H) 6 - 25 mg/dL [facility] Creatinine 0.85 0.80 - 1.30 mg/dL [facility] Glucose 113 70 - 199 mg/dL [facility] Comment: Interpretive Data Fasting glucose >/= [...] Calcium 8.4(L) 8.5 - 10.3 mg/dL [facility] Blood 01/30/2025 5:00 AM CDT 01/30/2025 5:33 AM CDT Kasia Maldonado MD LAB BLOOD ORDERABLES Final Res ult Performing Organization Address [facility]/ZIP Co de Phone Number [facility]AKA HARRIS [address] [address] [facility] [address] [place] [address] * POCT glucose (01/30/2025 3:39 AM CDT) Glucose, POC 132 70 - 199 mg/dL POC Performer [id number] [facility] Blood 01/30/2025 3:39 AM CDT 01/30/2025 3:39 AM CDT Kasia Maldonado MD LAB POCT ORDERABLES - DEVICE F inal Result Performing Organization Address [facility] Co de Phone Number [facility] [address] [address] [facility] [address] [place] [address] * POCT glucose (01/29/2025 9:27 PM CDT) Glucose, POC 139 70 - 199 mg/dL POC Performer [id number] [facility] Blood 01/29/2025 9:27 PM CDT 01/29/2025 9:27 PM CDT Kasia Maldonado MD LAB POCT ORDERABLES - DEVICE F inal Result Performing Organization Address [facility] Co de Phone Number AYAKA KIMBERLY [address] [address] [facility] [address] [place] [address] * POCT glucose (01/29/2025 7:52 AM CDT) Glucose, POC 132 70 - 199 mg/dL POC Performer [id number] [facility] Blood 01/29/2025 7:52 AM CDT 01/29/2025 7:52 AM CDT Kasia Maldonado MD LAB POCT ORDERABLES - DEVICE F inal Result Performing Organization Address [facility] Co de Phone Number [facility] [address] [place] [address] * XR Chest 1 View - Portable [...] ORDERABLES Final Res ult Performing Organization Address City/[facility]/ZIP Co de Phone Number [facility] [address] [address] [employer] [place] [address] * (ABNORMAL) CBC without differential (01/29/2025 3:08 AM CDT) WBC 15.72(H) 3.80 - 9.90 K/cumm Hgb 8.8(L) 13.0 - 17.5 g/dL [facility] Hct 26.6(L) 38.9 - 50.3 % [facility] Plt 155 150 - 400 K/cumm [facility] MPV 10.2 9.1 - 12.3 fL [facility] RBC 2.80(L) 4.30 - 5.80 M/cumm [facility] MCV 95.0 81.3 - 96.4 fL [facility] MCH 31.4 27.1 - 33.3 pg [facility] MCHC 33.1 32.3 - 35.7 g/dL [facility] RDW CV 14.0 11.1 - 14.9 % [facility] RDW SD 49.0(H) 35.7 - 48.1 fL [facility] NRBC abs 0.00 0.00 - 0.01 K/cumm [facility] Blood 01/29/2025 3:08 AM CDT 01/29/2025 4:52 AM CDT Kasia Maldonado MD LAB BLOOD ORDERABLES Final Res ult [facility] [address] [address] Department [place] [address] * (ABNORMAL) Basic metabolic panel (01/29/2025 3:08 AM CDT) Sodium 138 135 - 145 mmol/L Potassium, pl 3.5 3.3 - 4.9 mmol/L [facility] Chloride 99 97 - 110 mmol/L [facility] CO2 27 22 - 32 mmol/L [facility] Anion gap 12 2 - 15 mmol/L [facility] BUN 28(H) 6 - 25 mg/dL [facility] Creatinine 0.90 0.80 - 1.30 mg/dL [...] Calcium 8.4(L) 8.5 - 10.3 mg/dL [facility] Blood 01/29/2025 3:08 AM CDT 01/29/2025 4:51 AM CDT Kasia Maldonado MD LAB BLOOD ORDERABLES Final Res ult [facility] [address] [address] Department [place] [address] * POCT glucose (01/28/2025 9:15 PM CDT) Pathologist [facility] Glucose, POC 175 70 - 199 mg/dL POC Performer [id number] [facility] Blood 01/28/2025 9:15 PM CDT 01/28/2025 9:15 PM CDT Kasia Maldonado MD LAB POCT ORDERABLES - DEVICE F inal Result Performing Organization Address [facility] de Phone Number AYAKA HARRIS [address] [address] [facility] [address] [place] [address] * ECG 12 lead (01/28/2025 5:33 PM CDT) 01/28/2025 5:33 PM CDT Narrative [facility] - 01/29/2025 6:50 AM CDT Vent Rate: 119 bpm RR Interval: 503 msec NC Interval: 0 msec QRS Duration: 93 msec QT Interval: 318 msec QTC Interval: 389 msec P-R-T [place]: 0 - -9 - 8 degrees IMPRESSION: ATRIAL FIBRILLATION WITH RAPID VENTRICULAR RESPONSE LOW QRS VOLTAGE IN PRECORDIAL LEADS ABNORMAL RHYTHM ECG Electronically Signed By: Dr. Rivas Lehman [facility] Kasia Maldonado MD ECG ORDERABLES Final Result Performing Organization Address [facility] de Phone Number [facility] * POCT glucose (01/28/2025 4:30 PM CDT) [facility] Signature Glucose, POC 145 70 - 199 mg/dL POC Performer [id number] [facility] Blood 01/28/2025 4:30 PM CDT 01/28/2025 4:30 PM CDT Kasia Maldonado MD LAB POCT ORDERABLES - DEVICE F inal Result Performing Organization Address [facility] de Phone Number [facility]AKA HARRIS [address] [place] [address] * Critical Care (01/28/2025 4:27 PM CDT) [...] plan with the ICU team and other medical/biztalk consultant staff, making frequent assessments and decisions [...] 145 70 - 199 mg/dL POC Performer [id number] [facility] Blood 01/28/2025 11:4 0 AM CDT 01/28/2025 11:40 AM CDT Kasia Maldonado MD LAB POCT ORDERABLES - DEVICE F inal Result [facility] [address] [address] [place] [address] * POCT glucose (01/28/2025 6:50 AM CDT) Glucose, POC 105 70 - 199 mg/dL POC Performer [id number] [facility] Blood 01/28/2025 6:50 AM CDT 01/28/2025 6:50 AM CDT Kasia Maldonado MD LAB POCT ORDERABLES - DEVICE F inal Result Performing Organization Address [facility]/ZIP Co de Phone Number AYAKA HARRIS [address] [address] Department [place] [address] * POCT glucose (01/28/2025 5:44 AM CDT) Glucose, POC 117 70 - 199 mg/dL POC Performer [id number] [facility] Blood 01/28/2025 5:44 AM CDT 01/28/2025 5:44 AM CDT Kasia Maldonado MD LAB POCT ORDERABLES - DEVICE F inal Result Performing Organization Address [facility] Co de Phone Number AYAKA HARRIS [address] [address] [place] [address] * XR Chest 1 View - Portable [...] in place. The tip of a retracted Brackenridge-Karis catheter is in the superior vena cava. [...] in place. The tip of a retracted Brackenridge-Karis catheter is in the superior vena cava. [...] ORDERABLES Final Res ult Performing Organization Address [facility] Co de Phone Number AYAKA KIMBERLY [address] [address] [place] [address] * (ABNORMAL) Calcium, ionized, whole blood (01/28/2025 4:37 AM CDT) Ca, ionized, bld 4.33(L) 4.50 - 5.10 mg/dL Blood 01/28/2025 4:37 AM CDT 01/28/2025 4:44 AM CDT Kasia Maldonado MD LAB [place]OD [place] [address] [address] [place] [address] [place] [address] * eGFR (01/28/2025 4:37 AM CDT) eGFR [...] LAB BLOOD ORDERABLES Final Res ult [facility] [address] [address] [place] [address] * (ABNORMAL) CBC without differential (01/28/2025 4:37 AM CDT) WBC 17.78(H) 3.80 - 9.90 K/cumm Hgb 8.8(L) 13.0 - 17.5 g/dL [facility] Hct 26.6(L) 38.9 - 50.3 % [facility] Plt 126(L) 150 - 400 K/cumm [facility] MPV 9.8 9.1 - 12.3 fL [facility] RBC 2.81(L) 4.30 - 5.80 M/cumm [facility] MCV 94.7 81.3 - 96.4 fL [facility] MCH 31.3 27.1 - 33.3 pg [facility] MCHC 33.1 32.3 - 35.7 g/dL [facility] RDW CV 14.3 11.1 - 14.9 % [facility] RDW SD 49.4(H) 35.7 - 48.1 fL [facility] NRBC abs 0.00 0.00 - 0.01 K/cumm [facility] Blood 01/28/2025 4:37 AM CDT 01/28/2025 4:45 AM CDT Kasia Maldonado MD LAB BLOOD ORDERABLES Final Res ult Performing Organization Address [facility]/ZIP Co de Phone Number AYAKA [address] [address] [place] [address] [place] [address] * Magnesium (01/28/2025 4:37 AM CDT) Pathologist [facility] Magnesium 2.1 1.4 - 2.5 mg/dL Blood 01/28/2025 4:37 AM CDT 01/28/2025 4:45 AM CDT Kasia Maldonado MD LAB BLOOD ORDERABLES Final Res ult Performing Organization Address [facility] de Phone Number [facility] [address] [address] [place] [address] [place] [address] * (ABNORMAL) Basic metabolic panel (01/28/2025 4:37 AM CDT) Pathologist [facility] Sodium 136 135 - 145 mmol/L Potassium, pl 3.9 3.3 - 4.9 mmol/L [facility] Chloride 102 97 - 110 mmol/L [facility] CO2 23 22 - 32 mmol/L [facility] Anion gap 11 2 - 15 mmol/L [facility] BUN 22 6 - 25 mg/dL [facility] Creatinine 0.87 0.80 - 1.30 mg/dL [facility] Glucose 114 70 - 199 mg/dL [facility] Comment: Interpretive Data Fasting glucose >/= [...] ORDERABLES Final Res ult Performing Organization Address [facility] Co de Phone Number [facility]AK[facility] [address] [address] [facility] [address] [place] [address] * POCT glucose (01/28/2025 4:34 AM CDT) Glucose, POC 120 70 - 199 mg/dL POC Performer [id number] [facility] Blood 01/28/2025 4:34 AM CDT 01/28/2025 4:34 AM CDT Kasia Maldonado MD LAB POCT ORDERABLES - DEVICE F inal Result Performing Organization Address [facility] de Phone Number AYAKA [address] [address] [place] [address] * POCT glucose (01/28/2025 3:34 AM CDT) Glucose, POC 122 70 - 199 mg/dL POC Performer [id number] [facility] Blood 01/28/2025 3:34 AM CDT 01/28/2025 3:34 AM CDT Kasia Maldonado MD LAB POCT ORDERABLES - DEVICE F inal Result Performing Organization Address [facility] Co de Phone Number AYAKA [address] [address] [place] [address] * POCT glucose (01/28/2025 2:36 AM CDT) Glucose, POC 98 70 - 199 mg/dL POC Performer [id number] [facility] Blood 01/28/2025 2:36 AM CDT 01/28/2025 2:36 AM CDT Kasia Maldonado MD LAB POCT ORDERABLES - DEVICE F inal Result Performing Organization Address [facility] Co de Phone Number AYAKA HARRIS [address] [address] [facility] [address] [place] [address] * POCT glucose (01/28/2025 1:23 AM CDT) Glucose, POC 81 70 - 199 mg/dL POC Performer [id number] [facility] Blood 01/28/2025 1:23 AM CDT 01/28/2025 1:23 AM CDT Kasia Maldonado MD LAB POCT ORDERABLES - DEVICE F inal Result Performing Organization Address [facility] de Phone Number AYAKA HARRIS [address] [address] [facility] [address] [place] [address] * POCT glucose (01/28/2025 12:15 AM CDT) Glucose, POC 103 70 - 199 mg/dL POC Performer [id number] [facility] Blood 01/28/2025 12:1 5 AM CDT 01/28/2025 12:15 AM CDT Kasia Maldonado MD LAB POCT ORDERABLES - DEVICE F inal Result Performing Organization Address [facility] de Phone Number AYAKA HARRIS [address] [address] [facility] [address] [place] [address] * POCT glucose (01/27/2025 11:22 PM CDT) Glucose, POC 121 70 - 199 mg/dL POC Performer [id number] [facility] Blood 01/27/2025 11:2 2 PM CDT 01/27/2025 11:22 PM CDT Kasia Maldonado MD LAB POCT ORDERABLES - DEVICE F inal Result Performing Organization Address [facility] Co de Phone Number AYAKA HARRIS [address] [address] [facility] [address] [place] [address] * POCT glucose (01/27/2025 10:19 PM CDT) Glucose, POC 129 70 - 199 mg/dL POC Performer [id number] [facility] Blood 01/27/2025 10:1 9 PM CDT 01/27/2025 10:19 PM CDT Kasia Maldonado MD LAB POCT ORDERABLES - DEVICE F inal Result Performing Organization Address [facility] Co de Phone Number AYAKA HARRIS [address] [address] [facility] [address] [place] [address] * POCT glucose (01/27/2025 9:15 PM CDT) Glucose, POC 87 70 - 199 mg/dL POC Performer [id number] [facility] Blood 01/27/2025 9:15 PM CDT 01/27/2025 9:15 PM CDT Kasia Maldonado MD LAB POCT ORDERABLES - DEVICE F inal Result Performing Organization Address [facility] Co de Phone Number AYAKA HARRIS [address] [address] [facility] [address] [place] [address] * POCT glucose (01/27/2025 8:04 PM CDT) Glucose, POC 116 70 - 199 mg/dL POC Performer [id number] [facility] Blood 01/27/2025 8:04 PM CDT 01/27/2025 8:04 PM CDT Kasia Maldonado MD LAB POCT ORDERABLES - DEVICE F inal Result AYAKA HARRIS [address] [address] [place] [address] * POCT glucose (01/27/2025 7:12 PM CDT) Glucose, POC 138 70 - 199 mg/dL POC Performer [id number] [facility] Blood 01/27/2025 7:12 PM CDT 01/27/2025 7:12 PM CDT Kasia Maldonado MD LAB POCT ORDERABLES - DEVICE F inal Result Performing Organization Address [facility]/ZIP Co de Phone Number AYAKA HARRIS [address] [address] [place] [address] * eGFR (01/27/2025 6:53 PM CDT) eGFR [...] ORDERABLES Final Res ult Performing Organization Address [facility]/ZIP Co de Phone Number AYAKA [address] [employer] [place] [address] * (ABNORMAL) CBC without differential [...] ult AYAKA [address] [place] [address] [place] [address] * (ABNORMAL) Basic metabolic panel (01/27/2025 6:53 PM CDT) Sodium 138 135 - 145 mmol/L Potassium, pl 3.2(L) 3.3 - 4.9 mmol/L [facility] Chloride 103 97 - 110 mmol/L [facility] CO2 22 22 - 32 mmol/L [facility] Anion gap 13 2 - 15 mmol/L [facility] BUN 21 6 - 25 mg/dL [facility] Creatinine 0.99 0.80 - 1.30 mg/dL [facility] Glucose 118 70 - 199 mg/dL [facility] Comment: Interpretive Data Fasting glucose >/= [...] Calcium 8.4(L) 8.5 - 10.3 mg/dL [facility] Blood 01/27/2025 6:53 PM CDT 01/27/2025 6:59 PM CDT Kasia Maldonado MD LAB BLOOD ORDERABLES Final Res ult Performing Organization Address [facility]/ZIP Co de Phone Number AYAKA KIMBERLY [address] [address] [employer] [place], [place] [address] * POCT glucose (01/27/2025 6:04 PM CDT) [facility] Signature Glucose, POC 117 70 - 199 mg/dL POC Performer [id number] [facility] Blood 01/27/2025 6:04 PM CDT 01/27/2025 6:04 PM CDT Kasia Maldonado MD LAB POCT ORDERABLES - DEVICE F inal Result Performing Organization Address [facility]/ZIP Co de Phone Number [facility] [address] [address] [place] [address] [place] [address] * Critical Care (01/27/2025 5:45 PM CDT) [...] plan with the ICU team and other medical/biztalk consultant staff, making frequent assessments and decisions [...] 166 70 - 199 mg/dL POC Performer [id number] A[facility]AKA HARRIS Blood 01/27/2025 4:05 PM CDT 01/27/2025 4:05 PM CDT Kasia Maldonado MD LAB POCT ORDERABLES - DEVICE F inal Result AYAKA HARRIS [address] [address] [place] [address] * POCT glucose (01/27/2025 2:02 PM CDT) Glucose, POC 101 70 - 199 mg/dL POC Performer [id number] [facility] Blood 01/27/2025 2:02 PM CDT 01/27/2025 2:02 PM CDT Kasia Maldonado MD LAB POCT ORDERABLES - DEVICE F inal Result Performing Organization Address [facility] Co de Phone Number AYAKA HARRIS [address] [address] [facility] [address] [place] [address] * POCT glucose (01/27/2025 12:17 PM CDT) Glucose, POC 83 70 - 199 mg/dL POC Performer [id number] [facility] Blood 01/27/2025 12:1 7 PM CDT 01/27/2025 12:17 PM CDT Kasia Maldonado MD LAB POCT ORDERABLES - DEVICE F inal Result Performing Organization Address [facility] Co de Phone Number AYAKA HARRIS [address] [address] [facility] [address] [place] [address] * POCT glucose (01/27/2025 10:58 AM CDT) Glucose, POC 132 70 - 199 mg/dL POC Performer [id number] [facility] Blood 01/27/2025 10:5 8 AM CDT 01/27/2025 10:58 AM CDT Kasia Maldonado MD LAB POCT ORDERABLES - DEVICE F inal Result Performing Organization Address [facility] Co de Phone Number AYAKA HARRIS [address] [address] [facility] [address] [place] [address] * ECG 12 lead (01/27/2025 10:50 AM CDT) 01/27/2025 10:[address] [facility] - 01/27/2025 11:39 AM CDT Vent Rate: 99 bpm RR Interval: 602 msec NC Interval: 163 msec QRS Duration: 93 msec QT Interval: 356 msec QTC Interval: 412 msec P-R-T [place]: 53 - -7 - -1 degrees IMPRESSION: SINUS RHYTHM WITH artifact BORDERLINE ECG Electronically Signed By: Dr. Rivas Lehman [facility] Kasia Maldonado MD ECG ORDERABLES Final Result Performing Organization Address [facility] Co de Phone Number [facility] * POCT glucose (01/27/2025 7:40 AM CDT) Glucose, POC 111 70 - 199 mg/dL POC Performer [id number] CERNER CH Blood 01/27/2025 7:40 AM CDT 01/27/2025 7:40 AM CDT Kasia Maldonado MD LAB POCT ORDERABLES - DEVICE F inal Result Performing Organization Address [facility] Phone Number AYAKA HARRIS [address] [address] [place] [place] [address] * POCT glucose (01/27/2025 6:27 AM CDT) Glucose, POC 127 70 - 199 mg/dL POC Performer [id number] CERNER CH Blood 01/27/2025 6:27 AM CDT 01/27/2025 6:27 AM CDT Kasia Maldonado MD LAB POCT ORDERABLES - DEVICE F inal Result Performing Organization Address [facility] de Phone Number AYAKA HARRIS [address] [address] [place] [address] [place] [address] * POCT glucose (01/27/2025 5:16 AM CDT) Glucose, POC 126 70 - 199 mg/dL POC Performer [id number] CERNER CH Blood 01/27/2025 5:16 AM CDT 01/27/2025 5:16 AM CDT Kasia Maldonado MD LAB POCT [place]AB[place] [address] [address] [place] [address] * XR Chest 1 View - Portable [...] tubes. Left thoracostomy tube mediastinal drain and Brackenridge-Karis catheter remain in place. Mild cardiomegaly is seen without failure. No pneumothorax. Procedure Note Sunil Luna MD - 01/27/2025 EXAMINATION: XR CHEST 1 VIEW DATE: 01/27/2025 4:10 AM HISTORY: Cardiac surgery FINDINGS:Compared with the study of the previous day, the patient is extubated with removal of endotracheal and nasogastric tubes. Left thoracostomy tube mediastinal drain and Brackenridge-Karis catheter remain in place. Mild cardiomegaly is [...] ORDERABLES Final Res ult Performing Organization Address [facility] Co de Phone Number AYAKA HARRIS [address] [place], [place] [id number] * eGFR (01/27/2025 4:05 AM CDT) eGFR [...] BLOOD ORDERABLES Final Res ult AYAKA HARRIS [address] [address] [place] [address] * (ABNORMAL) Differential, auto (01/27/2025 4:05 AM CDT) Neutrophil abs 12.90(H) 1.50 - 6.50 K/cumm Imm gran abs 0.10 0.00 - 0.10 K/cumm [facility] Lymphocyte abs 0.80 0.80 - 3.30 K/cumm [facility] Monocyte abs 1.45(H) 0.20 - 0.80 K/cumm [facility] Eosinophil abs 0.00 0.00 - 0.50 K/cumm [facility] Basophil abs 0.03 0.00 - 0.10 K/cumm [facility] Neutrophil pct 84.4 % [facility] Comment: Interpretive Data Percent cell count reference ranges are not reported, since discordance with absolute values may lead to misinterpretation of CBC data. Current Interpretive Data was last revised on 2018. Imm gran pct 0.7 % [facility] Comment: Interpretive Data Percent cell count reference ranges are not reported, since discordance with absolute values may lead to misinterpretation of CBC data. Current Interpretive Data was last revised on 2018. Lymphocyte pct 5.2 % [facility] Comment: Interpretive Data Percent cell count reference ranges are not reported, since discordance with absolute values may lead to misinterpretation of CBC data. Current Interpretive Data was last revised on 2018. Monocyte pct 9.5 % [facility] Comment: Interpretive Data Percent cell count reference ranges are not reported, since discordance with absolute values may lead to misinterpretation of CBC data. Current Interpretive Data was last revised on 2018. Eosinophil pct 0.0 % [facility] Comment: Interpretive Data Percent cell count reference ranges are not reported, since discordance with absolute values may lead to misinterpretation of CBC data. Current Interpretive Data was last revised on 2018. Basophil pct 0.2 % [facility] Comment: Interpretive Data Percent cell count reference ranges are not reported, since discordance with absolute values may lead to misinterpretation of CBC data. Current Interpretive Data was last revised on 2018. Blood 01/27/2025 4:05 AM CDT 01/27/2025 4:10 AM CDT us Kasia Maldonado MD LAB BLOOD ORDERABLES Final Res ult AYAKA [address] [address] [place] [address] [place] [address] * (ABNORMAL) CBC with auto [...] RDW SD 48.3(H) 35.7 - 48.1 fL [facility] NRBC abs 0.00 0.00 - 0.01 K/cumm [facility] Blood 01/27/2025 4:05 AM CDT 01/27/2025 4:10 AM CDT Kasia Maldonado MD LAB BLOOD ORDERABLES Final Res ult Performing Organization Address [facility] Co de Phone Number AYAKA KIMBERLY [address] [address] [employer] [place] [address] * (ABNORMAL) Magnesium (01/27/2025 4:05 AM CDT) Magnesium 2.8(H) 1.4 - 2.5 mg/dL Blood 01/27/2025 4:05 AM CDT 01/27/2025 4:10 AM CDT Kasia Maldonado MD LAB BLOOD ORDERABLES Final Res ult Performing Organization Address City/[facility] Co de Phone Number AYAKA [address] [address] [place] [address] * (ABNORMAL) Basic metabolic panel (01/27/2025 4:05 [...] Calcium 8.2(L) 8.5 - 10.3 mg/dL [facility] Blood 01/27/2025 4:05 AM CDT 01/27/2025 4:10 AM CDT Kasia Maldonado MD LAB BLOOD ORDERABLES Final Res ult AYAKA [address] [address] [place] [address] * POCT glucose (01/27/2025 4:03 AM CDT) Glucose, POC 122 70 - 199 mg/dL POC Performer [id number] [facility] Blood 01/27/2025 4:03 AM CDT 01/27/2025 4:03 AM CDT Kasia Maldonado MD LAB POCT ORDERABLES - DEVICE F inal Result Performing Organization Address City/[facility]/ZIP Co de Phone Number AYAKA HARRIS [address] [address] [facility] [address] [place] [address] * POCT glucose (01/27/2025 3:02 AM CDT) Glucose, POC 112 70 - 199 mg/dL POC Performer [id number] CERNER CH Blood 01/27/2025 3:02 AM CDT 01/27/2025 3:02 AM CDT Kasia Maldonado MD LAB POCT ORDERABLES - DEVICE F inal Result Performing Organization Address [facility] Co de Phone Number [place]ODROW[place]ENITA HARRIS [address] [address] [facility] [address] [place] [address] * POCT glucose (01/27/2025 1:57 AM CDT) Glucose, POC 127 70 - 199 mg/dL POC Performer [id number] CERNER CH Blood 01/27/2025 1:57 AM CDT 01/27/2025 1:57 AM CDT Kasia Maldonado MD LAB POCT ORDERABLES - DEVICE F inal Result Performing Organization Address [facility] Co de Phone Number [place]ROW[place]ITA HARRIS [address] [address] [facility] [address] [place] [address] * POCT glucose (01/27/2025 12:50 AM CDT) Glucose, POC 146 70 - 199 mg/dL POC Performer [id number] CERNER CH Blood 01/27/2025 12:5 0 AM CDT 01/27/2025 12:50 AM CDT Kasia Maldonado MD LAB POCT ORDERABLES - DEVICE F inal Result Performing Organization Address [facility] Co de Phone Number [place] HARRIS [address] [address] [place] [address] * Potassium, whole blood (01/27/2025 12:44 AM [...] ORDERABLES Final Res ult Performing Organization Address [facility] Co de Phone Number AYAKA HARRIS [address] [address] [place] [address] * (ABNORMAL) Hemoglobin and hematocrit (01/27/2025 12:44 AM CDT) Pathologist [facility] Hgb 9.1(L) 13.0 - 17.5 g/dL Hct 27.3(L) 38.9 - 50.3 % [facility] Blood 01/27/2025 12:4 4 AM CDT 01/27/2025 12:54 AM CDT Kasia Maldonado MD LAB BLOOD ORDERABLES Final Res ult Performing Organization Address [facility]/ZIP Co de Phone Number [place] HARRIS [address] [address] [place] [address] [place] [address] * (ABNORMAL) Blood gas, arterial (01/27/2025 12:44 AM CDT) pH, Art 7.36 7.35 - 7.45 PCO2, Arterial 40 35 - 45 mmHg [facility] PO2, Arterial 93 83 - 108 mmHg [facility] HCO3 Art (Calculated) 22 20 - 30 mmol/L [facility] BE, art -3 mmol/L [facility] Comment: Interpretive Data No Reference Range Established Current Interpretive Data was last revised on 2017 O2 Sat Art (Measured) 96(H) 90 - 95 % [facility] Blood 01/27/2025 12:4 4 AM CDT 01/27/2025 12:53 AM CDT Kasia Maldonado MD LAB BLOOD ORDERABLES Final Res ult Performing Organization Address [facility] Co de Phone Number AYAKA HARRIS [address] [address] [facility] [address] [place] [address] * POCT glucose (01/26/2025 11:58 PM CDT) Glucose, POC 135 70 - 199 mg/dL POC Performer [id number] CERNER CH Blood 01/26/2025 11:5 8 PM CDT 01/26/2025 11:58 PM CDT Kasia Maldonado MD LAB POCT ORDERABLES - DEVICE F inal Result Performing Organization Address [facility] Co de Phone Number [place]ROW[place]ITA HARRIS [address] [address] [facility] [address] [place] [address] * POCT glucose (01/26/2025 10:45 PM CDT) Glucose, POC 128 70 - 199 mg/dL POC Performer [id number] CERNER CH Blood 01/26/2025 10:4 5 PM CDT 01/26/2025 10:45 PM CDT Kasia Maldonado MD LAB POCT ORDERABLES - DEVICE F inal Result Performing Organization Address [facility] Co de Phone Number WOODROWBENITA HARRIS [address] [address] [facility] [address] [place] [address] * POCT glucose (01/26/2025 9:50 PM CDT) Glucose, POC 120 70 - 199 mg/dL POC Performer [id number] CERNER CH Blood 01/26/2025 9:50 PM CDT 01/26/2025 9:50 PM CDT Kasia Maldonado MD LAB POCT ORDERABLES - DEVICE F inal Result Performing Organization Address [facility] Co de Phone Number AYAKA HARRIS [address] [address] [facility] [address] [place] [address] * POCT glucose (01/26/2025 8:52 PM CDT) Pathologist [facility] Glucose, POC 147 70 - 199 mg/dL POC Performer [id number] AYAKA Blood 01/26/2025 8:52 PM CDT 01/26/2025 8:52 PM CDT Kasia Maldonado MD LAB POCT ORDERABLES - DEVICE F inal Result Performing Organization Address [facility] Co de Phone Number AYAKA HARRIS [address] [address] [place] [address] * Calcium, ionized, whole blood (01/26/2025 8:02 PM CDT) [facility] Ca, ionized, bld 4.95 4.50 - 5.10 mg/dL Blood 01/26/2025 8:02 PM CDT 01/26/2025 8:16 PM CDT Kasia Maldonado MD LAB BLOOD ORDERABLES Final Res ult Performing Organization Address [facility] Co de Phone Number AYAKA HARRIS [address] [address] [facility] [address] [place] [address] * eGFR (01/26/2025 8:02 PM CDT) [facility] eGFR >90 >=60 mL/min/1. 73 m2 Comment: [...] 8:02 PM CDT 01/26/2025 8:14 PM CDT Ksaia Maldonado MD LAB BLOOD ORDERABLES Final Res ult Performing Organization Address [facility] Co de Phone Number AYAKA HARRIS [address] [address] [employer] [place], [place] [id number] * aPTT (01/26/2025 8:02 PM CDT) aPTT 33 28 - 38 sec Comment: Interpretive Data Heparin therapeutic range: 66.0 - 100.0 seconds. Range based on correlation with therapeutic heparin activity range of 0.3 - 0.7 Units/mL. Current interpretive data was last revised on 2023. Blood 01/26/2025 8:02 PM CDT 01/26/2025 8:12 PM CDT Kasia Maldonado MD LAB BLOOD ORDERABLES Final Res ult AYAKA [address] [address] [employer] [place], [place] [id number] * Protime-INR (01/26/2025 8:02 PM CDT) PT [...] ORDERABLES Final Res ult Performing Organization Address [facility] Co de Phone Number [facility] [address] [address] [place] [address] [place] [address] * Fibrinogen (01/26/2025 8:02 PM CDT) Pathologist [facility] Fibrinogen 248 170 - 400 mg/dL Blood 01/26/2025 8:02 PM CDT 01/26/2025 8:12 PM CDT Hollis Phillips MD LAB BLOOD ORDERAB LES Final Result Performing Organization Address [facility] de Phone Number [facility] [address] [address] [place] [address] * (ABNORMAL) CBC without differential (01/26/2025 8:02 PM CDT) Pathologist [facility] WBC 13.67(H) 3.80 - 9.90 K/cumm Hgb 9.6(L) 13.0 - 17.5 g/dL [facility] Hct 28.4(L) 38.9 - 50.3 % [facility] Plt 132(L) 150 - 400 K/cumm [facility] MPV 9.1 9.1 - 12.3 fL [facility] RBC 2.98(L) 4.30 - 5.80 M/cumm [facility] MCV 95.3 81.3 - 96.4 fL [facility] MCH 32.2 27.1 - 33.3 pg [facility] MCHC 33.8 32.3 - 35.7 g/dL [facility] RDW CV 13.4 11.1 - 14.9 % [facility] RDW SD 47.1 35.7 - 48.1 fL [facility] NRBC abs 0.00 0.00 - 0.01 K/cumm [facility] Blood 01/26/2025 8:02 PM CDT 01/26/2025 8:14 PM CDT Kasia Maldonado MD LAB BLOOD ORDERABLES Final Res ult Performing Organization Address [facility] Co de Phone Number WOODROWBENITA HARRIS [address] [address] [facility] [address] [place] [address] * Type and screen (01/26/2025 8:02 PM CDT) Pathologist [facility] ABO Rh A Positive Blood 01/26/2025 8:02 PM CDT 01/26/2025 8:18 PM CDT Narrative [facility] - 01/26/2025 8:47 PM CDT Has the patient had Daratumumab or Isatuximab in the past 6 months?->Unknown Jordan Escalera NP LAB BLOOD BANK TEST ORDERAB LES Final Result Performing Organization Address [facility] Co de Phone Number WOODROWBENITA HARRIS [address] [address] [facility] [address] [place], [place] [id number] * Magnesium (01/26/2025 8:02 PM CDT) Pathologist [facility] Magnesium 2.1 1.4 - 2.5 mg/dL Blood 01/26/2025 8:02 PM CDT 01/26/2025 8:14 PM CDT Kasia Maldonado MD LAB BLOOD ORDERABLES Final Res ult Performing Organization Address [facility] Co de Phone Number WOODROWBENITA HARRIS [address] [address] [facility] [address] [place], [place] [phone] * (ABNORMAL) Blood gas, arterial (01/26/2025 8:02 [...] MD LAB BLOOD ORDERABLES Final Res ult [facility] [address] [address] [place] [address] * (ABNORMAL) Basic metabolic panel (01/26/2025 8:02 [...] ORDERABLES Final Res ult Performing Organization Address [facility]/ZIP Co de Phone Number WOODROWBENITA HARRIS [address] [address] [facility] [address] [place] [address] * POCT glucose (01/26/2025 7:36 PM CDT) Glucose, POC 137 70 - 199 mg/dL POC Performer [id number] [facility] Blood 01/26/2025 7:36 PM CDT 01/26/2025 7:36 PM CDT Kasia Maldonado MD LAB POCT ORDERABLES - DEVICE F inal Result Performing Organization Address [facility] Co de Phone Number [place] [address] [address] [facility] [address] [place] [address] * Transfuse RBC (01/26/2025 7:27 PM CDT) Blood Hollis Phillips MD BLOOD TRANSFUSION ORDERABLES Final Result Performing Organization Address [facility]/ZIP Co de Phone Number WOODROWBENITA HARRIS [address] [address] [facility] [address] [place] [address] * POCT glucose (01/26/2025 6:28 PM CDT) Glucose, POC 155 70 - 199 mg/dL POC Performer [id number] AYAKA Blood 01/26/2025 6:28 PM CDT 01/26/2025 6:28 PM CDT Kasia Maldonado MD LAB POCT ORDERABLES - DEVICE F inal Result Performing Organization Address [facility] Co de Phone Number AYAKA [address] [address] [facility] [address] [place] [address] * Transfuse cryoprecipitate (pooled units) (01/26/2025 5:32 PM CDT) Blood Kasia Maldonado MD BLOOD TRANSFUSION ORDERABLES F inal Result Performing Organization Address [facility] Co de Phone Number AYAKA HARRIS [address] [address] [facility] [place] [place] [address] * POCT glucose (01/26/2025 5:28 PM CDT) Glucose, POC 153 70 - 199 mg/dL POC Performer [id number] [facility] Blood 01/26/2025 5:28 PM CDT 01/26/2025 5:28 PM CDT Kasia Maldonado MD LAB POCT ORDERABLES - DEVICE F inal Result Performing Organization Address [facility] de Phone Number WOODROWBENITA HARRIS [address] [address] [place] [address] * Prepare RBC: 1 Units (01/26/2025 5:10 PM CDT) Product code [id number] Unit Number [id number] 2-H [facility] Product Blood Type APOS [facility] Dispense Status RETURNED [facility] Blood 01/26/2025 5:10 PM CDT Narrative [facility] - 01/28/2025 12:14 AM CDT Are special requirements needed? (All products are leukoreduced and CMV- safe)- >No Donor Source->Allogene[employer] Date required:-[id number] LRRBC # of [id number] Reasons:-Active bleeding, Hgb <8 g/dL} Hollis Phillips MD BLOOD BANK PRODUC T ORDERABLES Final Result Performing Organization Address [facility] Co de Phone Number AYAKA HARRIS [address] [address] [facility] [address] [place], [place] [id number] * XR Chest 1 View - Portable [...] drain in place. The tip of the Brackenridge-Karis catheter is in the undivided main pulmonary [...] drain in place. The tip of the Brackenridge-Karis catheter is in the undivided main pulmonary [...] ORDERABLES Final Res ult Performing Organization Address [facility] Co de Phone Number AYAKA [address] [address] [employer] [place], [place] [id number] * aPTT (01/26/2025 4:12 PM CDT) aPTT [...] ORDERABLES Final Res ult Performing Organization Address [facility] Co de Phone Number AYAKA [address] [address] [employer] [place] [address] * (ABNORMAL) Protime-INR (01/26/2025 4:12 PM CDT) [...] ORDERABLES Final Res ult Performing Organization Address [facility]/ZIP Co de Phone Number [facility] [address] [address] [place] [address] * (ABNORMAL) CBC without differential (01/26/2025 4:12 PM CDT) WBC 19.20(H) 3.80 - 9.90 K/cumm Hgb 8.8(L) 13.0 - 17.5 g/dL [facility] Comment:Hemoglobin delta due to surgical procedure. This result has been called to Azucena Valle by [id number] on 01/26/2025 16:36:31. Hct 26.7(L) 38.9 - 50.3 % [facility] Plt 148(L) 150 - 400 K/cumm [facility] Comment:No clot detected in sample. MPV 9.3 9.1 - 12.3 fL [facility] RBC 2.78(L) 4.30 - 5.80 M/cumm [facility] MCV 96.0 81.3 - 96.4 fL [facility] MCH 31.7 27.1 - 33.3 pg [facility] MCHC 33.0 32.3 - 35.7 g/dL [facility] RDW CV 13.1 11.1 - 14.9 % [facility] RDW SD 46.0 35.7 - 48.1 fL [facility] NRBC abs 0.00 0.00 - 0.01 K/cumm [facility] Blood 01/26/2025 4:12 PM CDT 01/26/2025 4:18 PM CDT Kasia Maldonado MD LAB BLOOD ORDERABLES Final Res ult Performing Organization Address [facility]/ZIP Co de Phone Number AYAKA HARRIS [address] [address] Department [place] [address] * (ABNORMAL) Blood gas, arterial (01/26/2025 4:12 [...] BLOOD ORDERABLES Final Res ult AYAKA HARRIS [address] [address] [place] [address] * (ABNORMAL) Basic metabolic panel (01/26/2025 4:12 PM CDT) Pathologist [facility] Sodium 139 135 - 145 mmol/L Potassium, pl 4.0 3.3 - 4.9 mmol/L [facility] Chloride 109 97 - 110 mmol/L [facility] CO2 19(L) 22 - 32 mmol/L [facility] Anion gap 11 2 - 15 mmol/L [facility] BUN 17 6 - 25 mg/dL [facility] Creatinine 0.69(L) 0.80 - 1.30 mg/dL [facility] Glucose 147 70 - 199 mg/dL [facility] Comment: Interpretive Data Fasting glucose >/= [...] ORDERABLES Final Res ult Performing Organization Address [facility] Co de Phone Number AYAKA [address] [address] [place] [address] * Prepare cryoprecipitate (pooled units): 2 Units (01/26/2025 3:26 PM CDT) Pathologist [facility] Product code [id number] Unit Number [id number] [facility] Blood Type [facility] Dispense Status PRESUMED TRANSFUSED [facility] Blood Venous blood specimen / Unknown 01/26/2025 3:26 PM CDT Narrative [facility] - 01/27/2025 9:45 AM CDT Other indication->BLEEDING Cryo # of [id number] Reasons:-Other (Specify)} Kasia Maldonado MD BLOOD BANK PRODUCT ORDERABLES Final Result Performing Organization Address [facility] de Phone Number AYAKA HARRIS [address] [address] [place] [address] [place] [address] * (ABNORMAL) POC Blood Gas and Chemistries, [...] DEVICE F inal Result Performing Organization Address [facility]/ZIP Co de Phone Number AYAKA HARRIS [address] [address] [employer] [place], [place] [id number] * POC Activated Clotting Time, High Range (01/26/2025 2:14 PM CDT) ACT 126 87 - 138 sec POC Performer [id number] [facility] Blood 01/26/2025 2:14 PM CDT 01/26/2025 2:14 PM CDT Kasia Maldonado MD LAB BLOOD ORDERABLES Final Res ult AYAKA HARRIS [address] [address] [place] [address] * (ABNORMAL) POC Blood Gas and Chemistries, [...] DEVICE F inal Result Performing Organization Address [facility] Co de Phone Number AYAKA [address] [address] [place] [address] * POC Activated Clotting Time, High Range (01/26/2025 1:17 PM CDT) ACT 115 87 - 138 sec POC Performer [id number] [facility] Blood 01/26/2025 1:17 PM CDT 01/26/2025 1:17 PM CDT Kasia Maldonado MD LAB BLOOD ORDERABLES Final Res ult AYAKA HARRIS [address] [address] [place] [address] * (ABNORMAL) POC Blood Gas and Chemistries, [...] - DEVICE F inal Result AYAKA HARRIS [address] [place] [address] * (ABNORMAL) POC Activated Clotting Time, High Range (01/26/2025 12:37 PM CDT) Pathologist [facility] ACT 686(H) 87 - 138 sec POC Performer [id number] [facility] Blood 01/26/2025 12:3 7 PM CDT 01/26/2025 12:37 PM CDT Kasia Maldonado MD LAB BLOOD ORDERABLES Final Res ult Performing Organization Address [facility] Co de Phone Number AYAKA HARRIS [address] [address] [place] [address] [place] [address] * Platelet count (01/26/2025 12:30 PM CDT) [facility] Plt 209 150 - 400 K/cumm Blood 01/26/2025 12:3 0 PM CDT 01/26/2025 12:45 PM CDT Kasia Maldonado MD LAB BLOOD ORDERABLES Final Res ult Performing Organization Address [facility] de Phone Number AYAKA HARRIS [address] [place] [place] [address] * (ABNORMAL) POC Blood Gas and Chemistries, Arterial - (01/26/2025 12:01 PM CDT) [facility] pH, Art POC 7.40 7.35 - 7.45 [...] DEVICE F inal Result Performing Organization Address City/[facility]/ZIP Co de Phone Number AYAKA HARRIS [address] [place], [place] [id number] * (ABNORMAL) POC Activated Clotting Time, High Range (01/26/2025 11:59 AM CDT) ACT 824(H) 87 - 138 sec POC Performer [id number] [facility] Blood 01/26/2025 11:5 9 AM CDT 01/26/2025 11:59 AM CDT Kasia Maldonado MD LAB BLOOD ORDERABLES Final Res ult Performing Organization Address [facility]/ZIP Co de Phone Number AYAKA HARRIS [address] [place], [place] [id number] * (ABNORMAL) POC Blood Gas and Chemistries, [...] - DEVICE F inal Result AYAKA HARRIS [address] [employer] [place] [address] * (ABNORMAL) POC Activated Clotting Time, High Range (01/26/2025 11:29 AM CDT) ACT 674(H) 87 - 138 sec POC Performer [id number] [facility] Blood 01/26/2025 11:2 9 AM CDT 01/26/2025 11:29 AM CDT Kasia Maldonado MD LAB BLOOD ORDERABLES Final Res ult AYAKA HARRIS [address] [place] [place] [address] * (ABNORMAL) POC Activated Clotting Time, High Range (01/26/2025 10:48 AM CDT) ACT 548(H) 87 - 138 sec POC Performer [id number] AYAKA HARRIS Blood 01/26/2025 10:4 8 AM CDT 01/26/2025 10:48 AM CDT us Kasia Maldonado MD LAB BLOOD ORDERABLES Final Res ult AYAKA HARRIS [address] [place] [address] * BW AN SHEATH INTRODUCER PERFORMABLE, PULMONARY [...] MD ANESTHESIA ORDERABLES Final Re sult * NC AN ELECTIVE ENDOTRACHEAL AIRWAY (01/26/2025 9:32 AM [...] - [place] [address] [address] [facility] [address] [place] [address] * POC Activated Clotting Time, High Range (01/26/2025 9:22 AM CDT) Pathologist [facility] ACT 101 87 - 138 sec POC Performer [id number] [facility] Blood 01/26/2025 9:22 AM CDT 01/26/2025 9:22 AM CDT Kasia Maldonado MD LAB BLOOD ORDERABLES Final Res ult Performing Organization Address City/[facility]/ZIP Co de Phone Number WOODROWBENITA HARRIS [address] [place] [address] * Check Sample (01/26/2025 8:20 AM CDT) Pathologist [facility] ABO Rh A Positive CH HCLL OTHER 01/26/2025 8:20 AM CDT 01/26/2025 9:06 AM CDT Kasia Maldonado MD LAB BLOOD ORDERABLES Final Res ult Performing Organization Address City/[facility] Co de Phone Number AYAKA HARRIS [address] [facility] [address] [place] [address] CH * Prepare RBC: 4 Units (01/26/2025 7:59 AM CDT) Pathologist [facility] Product code N8353R31 [facility]ER [facility] Unit Number [id number] [facility] Product Blood Type APOS [facility] Dispense Status RETURNED [facility]ER [facility] Product code [id number] [facility] Unit Number [id number] [facility] Product Blood Type APOS C[facility] CH Dispense Status PRESUMED TRANSFUSED [facility] Product code [id number] Unit Number [id number] [facility]ER CH Product Blood Type APOS CERNER CH Dispense Status RETURNED [facility]ER [facility] Product code [id number] [facility] Unit Number [id number] [facility] Product Blood Type APOS CERNER CH Dispense Status RETURNED [facility] Blood 01/26/2025 7:59 AM CDT Narrative [facility] - 01/28/2025 12:14 AM CDT Specify Procedure:->CABG Are special requirements needed? (All products are leukoreduced and CMV- safe)- >No Date required:-[id number] LRRBC # of [id number] Reasons:-Hold for procedure (specify procedure)} Jordan Escalera NP BLOOD BANK PRODUCT ORDERABL ES Final Result Performing Organization Address [facility] de Phone Number AYAKA [address] Department of Laboratories [place], [place] [phone] * POCT glucose (01/26/2025 7:43 AM CDT) Glucose, POC 195 70 - 199 mg/dL POC Performer [id number] [facility] Blood 01/26/2025 7:43 AM CDT 01/26/2025 7:43 AM CDT Kasia Maldonado MD LAB POCT ORDERABLES - DEVICE F inal Result Performing Organization Address [facility] Phone Number AYAKA [address] [place], [place] [phone] * ECG 12 lead (01/24/2025 11:43 AM CDT) 01/24/2025 11:4 3 AM CDT Narrative [facility] - 01/24/2025 4:24 PM CDT Vent Rate: 72 bpm RR Interval: 828 msec NC Interval: 162 msec QRS Duration: 73 msec QT Interval: 348 msec QTC Interval: 372 msec P-R-T [place]: -6 - -23 - 13 degrees IMPRESSION: SINUS RHYTHM POSSIBLE LEFT ATRIAL ENLARGEMENT BORDERLINE LEFT AXIS DEVIATION BORDERLINE ECG Electronically Signed By: Jean Pierre Sanon MD Kasia Maldonado MD ECG ORDERABLES Final Result Performing Organization Address [facility] Phone Number [facility] [employer] [facility] * XR Chest PA Lateral 2 View [...] LAB BLOOD ORDERABLES Final Res ult [facility] [address] Department [place] [address] * Urinalysis reflex to microscopic [...] tendency for uric acid stone formation. Source: [facility] Current Interpretive Data was last revised on [...] ORD ERABLES Final Result Performing Organization Address [facility] Co de Phone Number AYAKA HARRIS [address] [place] [place] [address] * aPTT (01/24/2025 11:11 AM CDT) aPTT [...] ORDERABLES Final Res ult Performing Organization Address [facility] Co de Phone Number AYAKA HARRIS [address] [place] [place] [address] * Protime-INR (01/24/2025 11:11 AM CDT) PT [...] ORDERABLES Final Res ult Performing Organization Address [facility] Co de Phone Number AYAKA HARRIS [address] [place] [place] [address] * (ABNORMAL) CBC without differential (01/24/2025 11:11 AM CDT) WBC 9.86 3.80 - 9.90 K/cumm Hgb 13.5 13.0 - 17.5 g/dL [facility] Hct 40.5 38.9 - 50.3 % [facility] Plt 302 150 - 400 K/cumm [facility] MPV 9.0(L) 9.1 - 12.3 fL [facility] RBC 4.29(L) 4.30 - 5.80 M/cumm [facility] MCV 94.4 81.3 - 96.4 fL [facility] MCH 31.5 27.1 - 33.3 pg [facility] CH MCHC 33.3 32.3 - 35.7 g/dL [facility] RDW CV 13.0 11.1 - 14.9 % [facility] RDW SD 44.7 35.7 - 48.1 fL [facility] NRBC abs 0.00 0.00 - 0.01 K/cumm [facility] CH Blood 01/24/2025 11:1 1 AM CDT 01/24/2025 11:48 AM CDT Kasia Maldonado MD LAB BLOOD ORDERABLES Final Res ult Performing Organization Address City/[facility]/ZIP Co de Phone Number AYAKA HARRIS [address] [employer] [place] [address] * Type and screen (01/24/2025 11:11 AM CDT) Pathologist [facility] Cosmo, indirect Negative ABO Rh A Positive [facility] Blood 01/24/2025 11:1 1 AM CDT 01/24/2025 11:49 AM CDT Narrative [facility] - 01/24/2025 12:31 PM CDT Has the patient had Daratumumab or Isatuximab in the past 6 months?->Unknown Kasia Maldonado MD LAB BLOOD BANK TEST ORDERABLES Final Result AYAKA KIMBERLY [address] [place] [place] [address] * (ABNORMAL) Basic metabolic panel (01/24/2025 11:11 AM CDT) Sodium 134(L) 135 - 145 mmol/L Potassium, pl 4.1 3.3 - 4.9 mmol/L CERNER Chloride 100 97 - 110 mmol/L [facility] CH CO2 24 22 - 32 mmol/L [facility] CH Anion gap 10 2 - 15 mmol/L CERNER BUN 17 6 - 25 mg/dL CERNER Creatinine 0.70(L) 0.80 - 1.30 mg/dL [facility] Glucose 123 70 - 199 mg/dL [facility] Comment: Interpretive Data Fasting glucose >/= [...] Calcium 9.4 8.5 - 10.3 mg/dL [facility] Blood 01/24/2025 11:1 1 AM CDT 01/24/2025 11:48 AM CDT Kasia Maldonado MD LAB BLOOD ORDERABLES Final Res ult [facility] [address] [place] [address] * US Carotids Duplex Bilateral (01/20/2025 2:30 [...] PM CDT Narrative 01/20/2025 1:59 [place] [address] Echocardiogram Report Patient Name: OSEAS MORA ALFRED : 1950 Study Date: 01/20/2025 12:49:29 PM Gender: M Tech: Location: [address] [place] [address] Provider: ANABELL SAINI Height(Cm): 170 BSA: 1.86 [...] Procedure Note Anabell Saini MD - 01/20/2025 [place] [address] Echocardiogram Report Patient Name: OSEAS MORA ALFRED : 1950 Study Date: 01/20/2025 12:49:29 PM Gender: M [facility]: Location: 59 Ref Provider: ANABELL SAINI Height(Cm): [...] 102 70 - 199 mg/dL POC Performer [id number] AYAKA Blood 01/20/2025 10:2 3 AM CDT 01/20/2025 10:23 AM CDT Anabell Saini MD LAB POCT ORDERABLES - DEVICE Fin al Result [facility] [address] Department [place] [address] * LEFT HEART CATHETERIZATION WITH CORONARY ANGIOGRAPHY AND WITH AND WITHOUT LEFT VENTRICULOGRAM (01/20/2025 9:42 AM CDT) Anatomical Region Laterality Modality X-Ray Angiograph y Narrative 01/20/2025 10:24 AM CDT CARDIAC CATHETERIZATION REPORT Oseas Mora IP ENCOUNTER: [id number] Date of Procedure: 01/20/2025 BIRTHDATE: 1950 COMPUTER SCIENCES PROFESSOR: Anabell Saini MD REFERRING PHYSICIAN: Dr. Patricio [...] patient. Patient was then brought into the manager cath lab and was draped and prepped in the [...] LAB BLOOD ORDERABLES Final Resul t [facility] [address] [place] [address] * (ABNORMAL) Differential, auto (01/20/2025 8:06 AM CDT) Neutrophil abs 3.61 1.50 - 6.50 K/cumm Imm gran abs 0.02 0.00 - 0.10 K/cumm [facility] Lymphocyte abs 2.31 0.80 - 3.30 K/cumm [facility] Monocyte abs 1.06(H) 0.20 - 0.80 K/cumm [facility] Eosinophil abs 0.19 0.00 - 0.50 K/cumm [facility] Basophil abs 0.09 0.00 - 0.10 K/cumm [facility] Neutrophil pct 49.6 % [facility] Comment: Interpretive Data Percent cell count reference ranges are not reported, since discordance with absolute values may lead to misinterpretation of CBC data. Current Interpretive Data was last revised on 2018. Imm gran pct 0.3 % [facility] Comment: Interpretive Data Percent cell count reference ranges are not reported, since discordance with absolute values may lead to misinterpretation of CBC data. Current Interpretive Data was last revised on 2018. Lymphocyte pct 31.7 % [facility] Comment: Interpretive Data Percent cell count reference ranges are not reported, since discordance with absolute values may lead to misinterpretation of CBC data. Current Interpretive Data was last revised on 2018. Monocyte pct 14.6 % [facility] Comment: Interpretive Data Percent cell count reference ranges are not reported, since discordance with absolute values may lead to misinterpretation of CBC data. Current Interpretive Data was last revised on 2018. Eosinophil pct 2.6 % [facility] Comment: Interpretive Data Percent cell count reference ranges are not reported, since discordance with absolute values may lead to misinterpretation of CBC data. Current Interpretive Data was last revised on 2018. Basophil pct 1.2 % [facility] Comment: Interpretive Data Percent cell count reference ranges are not reported, since discordance with absolute values may lead to misinterpretation of CBC data. Current Interpretive Data was last revised on 2018. Blood 01/20/2025 8:06 AM CDT 01/20/2025 8:17 AM CDT us Anabell Saini MD LAB BLOOD ORDERABLES Final Resul t [facility] [address] [place] [address] * (ABNORMAL) CBC with auto differential (01/20/2025 8:06 AM CDT) WBC 7.28 3.80 - 9.90 K/cumm Hgb 14.2 13.0 - 17.5 g/dL [facility] Hct 42.1 38.9 - 50.3 % [facility] Plt 302 150 - 400 K/cumm [facility] MPV 9.0(L) 9.1 - 12.3 fL [facility] RBC 4.45 4.30 - 5.80 M/cumm [facility] MCV 94.6 81.3 - 96.4 fL [facility] MCH 31.9 27.1 - 33.3 pg [...] LAB BLOOD ORDERABLES Final Resul t AYAKA [address] [address] Department [place] [address] * (ABNORMAL) Basic metabolic panel (01/20/2025 8:06 AM CDT) Sodium 139 135 - 145 mmol/L Potassium, pl 4.1 3.3 - 4.9 mmol/L CERNER Chloride 104 97 - 110 mmol/L [facility] CH CO2 25 22 - 32 mmol/L [facility] CH Anion gap 10 2 - 15 mmol/L [facility] BUN 17 6 - 25 mg/dL [facility] Creatinine 0.77(L) 0.80 - 1.30 mg/dL [facility] Glucose 115 70 - 199 mg/dL [facility] Comment: Interpretive Data Fasting glucose >/= [...] Calcium 9.1 8.5 - 10.3 mg/dL [facility] Blood 01/20/2025 8:06 AM CDT 01/20/2025 8:18 AM CDT us Anabell Saini MD LAB BLOOD ORDERABLES Final Resul t Performing Organization Address City/[facility] Co de Phone Number AYAKA HARRIS [address] [place] [address] [place] [address] * POCT glucose (01/20/2025 7:57 AM CDT) [facility] Signature Glucose, POC 109 70 - 199 mg/dL POC Performer [id number] [facility] Blood 01/20/2025 7:57 AM CDT 01/20/2025 7:57 AM CDT Anabell Saini MD LAB POCT ORDERABLES - DEVICE Fin al Result Performing Organization Address [facility] Co de Phone Number AYAKA HARRIS [address] [place] [address] [place] [address] * CTA Heart and Coronary Arteries W [...] * POC ISTAT (01/12/2025 1:52 PM CDT) [facility] Creatinine, POC, bld 0.8 0.6 - 1.3 mg/dL POC Device Number [id number] [facility] POC Performer [id number] [facility] Blood 01/12/2025 1:52 PM CDT 01/12/2025 1:52 PM CDT Shabbir White MD LAB BLOOD ORDERABL ES Final Result [facility] [address] [facility]. [address] [place] [address] [place] [address] * POCT lipid panel (12/15/2024 2:28 PM SANDWICH MACHINE OPERATOR) Cholesterol, POC 231 mg/dL HDL, POC 45 mg/dL Triglycerides, POC 108 mg/dL LDL Cholesterol POC 165 mg/dL Chol/HDL Ratio, POC 5.1 Non-HDL Cholesterol, POC 186 mg/dL Cholesterol Total, POC 231 mg/dL Capillary blood 12/15/2024 2 :28 PM SANDWICH MACHINE OPERATOR Gera Patricio MD POINT OF CARE TEST ORDERA BLES Final Result * Electrocardiogram Report (12/15/2024 8:17 AM SANDWICH MACHINE OPERATOR) us Gera Patricio MD ECG ORDERABLES Final Res ult from Last 3 Months Insurance [facility] [employer] [facility] [employer] Advance Directives For more information, please contact: [phone] * Full Code (Latest Code Status on File) Date Activated Date Inactivated Comments 01/26/2025 4:03 PM 01/31/2025 9:06 PM Care Teams Reference And Instruction Librarian Relationship Specialty Start Date End Date Shabbir White MD [address] [place] [address] PCP - General 02/07/17 Kasia Maldonado MD [address] [place] [address] Surgeon Cardiothoracic Surgery 01/31/25 Gera Patricio MD [address] [address] Consulting Physician Cardiology 01/31/25 Miscellaneous, Not In File 01/31/25
--- OUTSIDE RECORDS SUMMARY | 2025-02-12 12:58 | XMS_ITS | Encounter Summary ---
Author Organization [facility] Healthcare Address [address] [place] [address] Care Team Providers Care Transmission Repairer Name Role Phone Shabbir White MD Primary Care Prov ider Kasia Maldonado MD Unavailable [phone] Gera Patricio MD Unavailable [phone] Miscellaneous, Not In File Unavailable Unava ilable Encounter Details Date Type Department Care Team (Late st Contact Info) Description 02/02/2025 [facility] Post Discharge Follow up phone call [facility] [address] [place] [address] Evangelina Khan Social History Tobacco Use Types Packs/Day Years Used Date Smoking Tobacco: Former Cigarettes 1 16 1 970 - 1986 Smokeless Tobacco: Never Alcohol Use Standard Drinks/Week Comments Yes 1 (1 standard drink = 0.6 oz pur e alcohol) nightly [facility] Utilities Answer Date Recorded In the past 12 months has [employer], gas, oil, or water [employer] threatened to shut off services in your [...] week 01/31/2025 How often do you attend [facility] or hoahaoism services? Never 01/31/2025 Do you belong to any clubs o r organizations such as roman catholic groups, unions, fraternal or athletic groups, or [...] were you homeless or living in a long-term (including now)? No 01/31/2025 Personal Safety Answer Date Recorded Have you ever been in or are you currently in a harmful physical or emotional relationship or is someone making you feel afraid or unsafe? 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 Gender Identity Not on file Sexual Orientation Not on file documented as of this encounter Plan of Treatment Not on file documented as of this encounter Visit Diagnoses Not on filedocumented in this encounter Care Teams Transmission Repairer Relationship Specialty Start Date End Date Shabbir White MD [address] [place] [address] PCP - General 02/07/17 Kasia Maldonado MD [address] [place] [address] Surgeon Cardiothoracic Surgery 01/31/25 Gera Patricio MD [address] [address] Consulting Physician Cardiology 01/31/25 Miscellaneous, Not In File 01/31/25 documented as of this encounter
--- OUTSIDE RECORDS SUMMARY | 2025-02-12 12:58 | XMS_ITS | Clinical Summary ---
Author Organization [facility] Address [address], [address] [address] Phone Care Team Providers Care Senior Web Designer Name Role Phone Shabbir White MD Primary Care Provider + Quique Smiley DO Unavailable [phone] Allergies No known active allergies Medications [...] Most Recently Relevant to Health Maintenance Insurance [facility] Care Teams Senior Web Designer Relationship Specialty Start Date End Date Shabbir White MD [address] [place] [address] PCP - General Family Medicine 08/16/16 Quique Smiley DO [address] [place] [address] Gastroenterology 08/16/16
--- OUTSIDE RECORDS SUMMARY | 2025-02-12 12:58 | XMS_ITS | Clinical Summary ---
Author Organization [facility] C Address [address] [place] [address] Care Team Providers Care Java Designer Name Role Phone Shabbir White MD Primary Care Prov ider Kasia Maldonado MD Unavailable [phone] Gera Patricio MD Unavailable Miscellaneous, Not [...] now. Assessment & Plan (09/09/2023 1:08 PM COAL LOADER): 2/2 RK OU, patient having issues with I/R and having other health issues Would like to return lenses and try again at another time. Will return Spindale lenses and RTC for refit in future [...] next exam OS RTC for dispense reF# [id number] Assessment & Plan (05/23/2023 4:00 PM CDT): 2/2 RK OU, possible OHx of amblyopia OD; patient states that OD (even prior to RK) has never seen as well as OS Educated patient on options, corneal GP (would need reverse kate design) vs scleral Patient concerned about dryness and comfort, will go ahead with scleral fit today Today with Spindale 16.0, excellent comfort OU: OD: 450um central, minimal limbal. Slighlt toe impingement 360, better periphery with flat lens OS: 450um central, minimal limbal. Slight toe impitngement 360, better periphery with flat and better vision with FSE2 Flat periphery / FSE2 / aim for 280um central clearance with adjustments today BCVA 20/30- OD; 20/25-- OS RTC for dispense Ref# [id number] Assessment & Plan (12/11/2022 4:19 PM COAL LOADER): Patient is s/p 1 cut RK OU and has to change between several pairs of glasses through the day due to fluctuations in refractive error. Pt has been told about scleral lenses in the past and is interested in trying them. Will consult with Dr. Rivera and schedule and evaluation. Retinal drusen of both eyes 06/05/2022 Assessment & Plan (12/11/2022 4:19 PM COAL LOADER): Mild and stable. F/u annually. Assessment & [...] CPM. Assessment & Plan (11/28/2021 1:23 PM COAL LOADER): Continue ATs prn. Assessment & Plan (05/30/2021 2:28 PM CDT): PF ATs prn. Assessment & Plan (01/31/2021 1:46 PM CDT): Well controlled with artificial tears. CPM Assessment & Plan (12/13/2020 1:16 PM COAL LOADER): Pt feels his symptoms are well controlled [...] 10/26/2019 Assessment & Plan (10/29/2019 7:17 PM COAL LOADER): Chest pain is atypical in that it occurs only sometimes in his in various locations of his chest. I am suspicious that it is musculoskeletal, but would recommend a stress test. As his EKG is normal, imaging is not required. Biceps tendinitis of right upper extremity 11/25 Overview (11/25/2018): Added automatically from request for surgery [id number] Incomplete tear of right rotator cuff 11/25/2018 Overview (11/25/2018): Added automatically from request for surgery [id number] Open angle with borderline f indings and [...] ck. Assessment & Plan (12/11/2022 4:18 PM COAL LOADER): Mild OAG vs suspect. Started on tx [...] ck. Assessment & Plan (11/28/2021 1:23 PM COAL LOADER): Mild OAG vs suspect. IOP well controlled [...] irritation. Assessment & Plan (12/13/2020 1:21 PM COAL LOADER): IOP stable on 1 class. Travatan is [...] OU Assessment & Plan (12/11/2022 4:19 PM COAL LOADER): S/p RK OU Assessment & Plan (06/05/2022 3:57 PM CDT): S/p 16 incision RK. Stable. Observe. Assessment & Plan (11/28/2021 1:23 PM COAL LOADER): S/p 16 incision RK OU Assessment & Plan (05/30/2021 2:28 PM CDT): Hx of RK. Observe. 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 02/10/2025 9:30 AM CDT Office Visit [facility] Surgery [address] [place] [address] [address] [place] [address] Lali, Jordan Ning, CRIME SCENE INVESTIGATOR 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, unspecified vessel or lesion type (Primary Dx) 02/10/2025 Orders Only [facility] Surgery [address] [place] [address] Road [address] [place] [address] Jordan Escalera NP 02/07/2025 Orders Only [facility] Surgery [address] [place] [address] Road [address] [place] [address] Jordan Escalera NP Coronary artery disease 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 (Primary Dx) 02/07/2025 Documentation [facility] Surgery [address] [place] [address] Road [address] [place] [address] Jordan Escalera NP 02/04/2025 1:51 PM CDT - 02/04/2025 11:59 PM CDT Hospital Encounter [facility] ([place], [place]) Diagnostic Imaging [address] [place] [address] Coronary artery disease 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 Discharge Disposition: Discharge to home or self care 02/04/2025 10:[address] [facility] ([place] [place] Lab [address] [place] [address] 02/04/2025 10:[address] 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 (Primary Dx) 02/04/2025 Orders Only [facility] Surgery [address] [place] [address] [address] [place] [address] Jordan Escalera NP Burning with urination (Primary Dx) 02/03/2025 Documentation [facility] Surgery [address] [place] [address] [address] [place] [address] Rabia Becerra NP 02/02/2025 [facility] Post Discharge Follow up phone call [address] [address] Evangelina Khan 01/31/2025 Telephone [facility] Medical Group Cardiology [address] [facility] [address], [place] [phone] Alaina Henderson NP 01/26/2025 9:35 AM CDT - 01/26/2025 2:35 PM CDT Surgery [facility] Operating Room [address] [place] [address] Kasia Maldonado MD CABG X 4 with LEFT AND RIGHT INTERNAL MAMMARY ARTERY HARVEST AND RIGHT LEG ENDOVEIN HARVEST 01/26/2025 8:55 AM CDT Anesthesia Event [facility] Operating Room [address] [place] [address] José Manuel Torres MD Eldin, Ali S., MD 01/26/2025 7:23 AM CDT - 01/31/2025 4:56 PM CDT Hospital Encounter [address] [address] Kasia Maldonado MD 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 pectoris (Primary Dx); Coronary artery disease of qagan tayagungin artery of qagan tayagungin heart with stable angina pectoris; 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, unspecified vessel or lesion type Discharge Disposition: Discharge to home, home health skilled care 01/24/2025 11:16 AM CDT - 01/24/2025 11:59 PM CDT Hospital Encounter [facility] Diagnostic Imaging [address] [place] [address] Discharge Disposition: Discharge to home or self care 01/24/2025 10:45 AM CDT Pre-Admission Testing [facility] Pre Anesthesia Testing [address] [place] [address] 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, unspecified vessel or lesion type 01/24/2025 Documentation [facility] Surgery [address] [place] [address] [address] [place] [phone] Jordan Escalera NP 01/20/2025 10:00 AM CDT - 01/20/2025 11:30 AM CDT Surgery [facility] Cardiac Catheterization Lab [address] [place] [address] Anabell Saini MD LEFT HEART CATHETERIZATION WITH CORONARY ANGIOGRAPHY AND WITH OR WITHOUT LEFT VENTRICULOGRAM [id number] 01/20/2025 7:35 AM CDT - 01/20/2025 2:21 PM CDT Hospital Encounter [facility] Cardiac Catheterization Lab [address] [place] [address] Anabell Saini MD Other chest pain Discharge Disposition: Discharge to home or self care 01/20/2025 Telephone [facility] Cardiology [address] [place] [phone] Anabell Saini MD 01/13/2025 Telephone [facility] Cardiology [address] [place] [phone] Gera Patricio MD 01/12/2025 1:35 PM CDT - 01/12/2025 11:59 PM CDT Hospital Encounter [facility] Imaging [address] [place] [address] Atypical chest pain; History of atrial fibrillation; History of PSVT (paroxysmal supraventricular tachycardia); Essential hypertension Discharge Disposition: Discharge to home or self care 01/12/2025 Results Follow-Up [facility] Cardiology [address] [facility] [address], [place] [address] Gera Patricio MD Atypical chest pain (Primary Dx) 01/12/2025 Telephone [facility] Cardiology [address] [place] [phone] Gera Patricio MD 01/10/2025 Telephone [facility] Imaging [address] [place], [place] [address] Esthela Perdomo RN 12/15/2024 2:00 PM COAL LOADER Office Visit [facility] Cardiology at [address] [place] [phone] Gera Patricio MD Atypical chest pain (Primary [...] ANGIOGRAPHY AND WITH OR WITHOUT LEFT VENTRICULOGRAM [address]; Surgeon: Anabell Saini MD; Location: CARDIAC ADMINISTRATIVE COORDINATOR; Service: Cardiovascular; Laterality: N/A; ABLATION SVT CAPSULOTOMY [...] sepsis Father (Age 92) Mother (Age 81) [place] at age 76 Sister 1 (Age 61) [...] = 0.6 oz pur e alcohol) nightly [facility] Utilities Answer Date Recorded In the past [...] often do you attend chur ch or samaritan services? Never 01/31/2025 Do you belong to any clubs o r organizations such as anabaptism groups, unions, fraternal or athletic groups, or [...] in the past [address] [facility], were you homeless or living in a mcfp (including now)? No 01/31/2025 Personal Safety Answer Date Recorded Have you ever been in or are you currently in a harmful physical or emotional relationship or is someone making you feel afraid or unsafe? Denies 01/26/2025 Sex and Gender Information Value Date Recorded Sex Assigned at Not on file Legal Sex Male 2:36 AM COAL LOADER Gender Identity Not on file Sexual Orientation [...] 01/31/2026 01/31/2025 Medical Devices Implanted Type Area Live Games Dealer Device Identifier Shelf Expiration Date Model / Serial / Lot [employer] Plate Bone Low Profile 4 Hole Box Sternum Ti 115.103.04 - [id number] Implanted:Qty: 1 on 01/26/2025 by Kasia Maldonado MD at [facility] Plate N/A: Sternum [employer] 115.103.04 / / [employer] Plate Bone Low Profile 6 Hole H Shape Sternum Ti 115.102.06 - [id number] Implanted:Qty: 1 on 01/26/2025 by Kasia Maldonado MD at [facility] Plate N/A: Sternum [employer] 115.102.06 / / [employer] Plate Bone Low Profile 6 Hole O Shape Sternum Ti 115.104.06 - [id number] Implanted:Qty: 1 on 01/26/2025 by Kasia Maldonado MD at [facility] Plate N/A: Sternum [employer] 115.104.06 / / [employer] Screw Bone Slf Drl Full Thread Locking 3.5x18mm Ti 100.035.18 - [id number] Implanted:Qty: 16 on 01/26/2025 by Kasia Maldonado MD at [facility] Screw N/A: Sternum [employer] 100.035.18 / / Procedures Procedure Name Priority Date/Time Associated Diagnosis Comments EGFR Routine 02/10/2025 10:33 AM CDT Coronary artery disease 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 CBC WITHOUT DIFFERENTIAL Routine 02/10/2025 10:33 AM CDT Coronary artery disease 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 COMPREHENSIVE METABOLIC PANEL Routine 02/10/2025 10:33 AM CDT Coronary artery disease 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 XR CHEST PA LATERAL 2 VIEWS Schedule Routine, Read Routine (OP Routine) 02/04/2025 1:58 PM CDT Coronary artery disease 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 EGFR Routine 02/04/2025 [...] 4:27 PM CDT Coronary artery disease of qagan tayagungin artery of qagan tayagungin heart with stable angina pectoris POCT GLUCOSE [...] 5:45 PM CDT Coronary artery disease of qagan tayagungin artery of qagan tayagungin heart with stable angina pectoris POCT GLUCOSE [...] LINE PLACEMENT Routine 01/26/2025 9:33 AM CDT [place] AN ELECTIVE ENDOTRACHEAL AIRWAY Routine 01/26/2025 9:32 AM CDT ANESTHESIA ARTERIAL LINE PLACEMENT Routine 01/26/2025 9:31 AM CDT POC BLOOD GAS AND CHEMISTRIES, ARTERIAL Routine 01/26/2025 9:24 AM CDT POCT ACTIVATED CLOTTING TIME, HIGH RANGE Routine 01/26/2025 9:22 AM CDT EXPLORATION CHEST 01/26/2025 8:55 AM CDT 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, unspecified vessel or lesion type CORONARY ARTERY BYPASS GRAFT - INTERNAL MAMMARY ARTERY 01/26/2025 8:55 AM CDT 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, unspecified vessel or lesion type B CHECK SAMPLE STAT 01/26/2025 8:20 AM CDT PREPARE RBC STAT 01/26/2025 7:59 AM CDT POCT GLUCOSE DEVICE Routine 01/26/2025 7:43 AM CDT ECG 12-LEAD Routine 01/24/2025 11:43 AM CDT 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, unspecified vessel or lesion type XR CHEST PA LATERAL 2 VIEWS Schedule Routine, Read Routine (OP Routine) 01/24/2025 11:28 AM CDT 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, unspecified vessel or lesion type EGFR Routine 01/24/2025 11:11 AM CDT 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, unspecified vessel or lesion type BASIC METABOLIC PANEL Routine 01/24/2025 11:11 AM CDT 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, unspecified vessel or lesion type PROTIME-INR Routine 01/24/2025 11:11 AM CDT 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, unspecified vessel or lesion type APTT Routine 01/24/2025 11:11 AM CDT 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, unspecified vessel or lesion type CBC WITHOUT DIFFERENTIAL Routine 01/24/2025 11:11 AM CDT 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, unspecified vessel or lesion type TYPE AND SCREEN Routine 01/24/2025 11:11 AM CDT 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, unspecified vessel or lesion type URINALYSIS AND REFLEX TO MICROSCOPIC AND CULTURE Routine 01/24/2025 11:11 AM CDT 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, unspecified vessel [...] POCT LIPID PANEL Routine 12/15/2024 2:28 PM COAL LOADER Essential hypertension ELECTROCARDIOGRAM REPORT Routine 12/15/2024 8:17 AM COAL LOADER Atypical chest pain History of PSVT (paroxysmal [...] ORDERABLES Final Result [facility] [address] Department [place] [address] * (ABNORMAL) CBC without differential (02/10/2025 10:33 AM CDT) WBC 13.51(H) 3.80 - 9.90 K/cumm Hgb 9.7(L) 13.0 - 17.5 g/dL [facility] Hct 30.4(L) 38.9 - 50.3 % [facility] [...] CDT 02/10/2025 2:16 PM CDT Jordan Escalera CRIME SCENE INVESTIGATOR LAB BLOOD ORDERABLES Final Result [facility] [address] Department [place] [address] * (ABNORMAL) Comprehensive metabolic panel (02/10/2025 10:33 AM CDT) Sodium 133(L) 135 - 145 mmol/L Potassium, pl 4.1 3.3 - 4.9 mmol/L [facility] Chloride 97 97 - 110 mmol/L [facility] CO2 25 22 - 32 mmol/L [facility] Anion gap 11 2 - 15 mmol/L [facility] BUN 16 6 - 25 mg/dL [facility] Creatinine 1.12 0.80 - 1.30 mg/dL [facility] Glucose 107 70 - 199 mg/dL [facility] [...] ORDERABLES Final Result [facility] [address] Department [place] [address] * X-ray chest 2 views (02/04/2025 1:58 [...] Electronically signed by Hollis JOYNER Report ID: [id number] Reading Location: [id number] Procedure Note Hollis Gonzalez MD - 02/05/2025 [...] signed by Hollis JOYNER: ANYA Report ID: [id number] Reading Location: [id number] us Jordan Escalera CRIME SCENE INVESTIGATOR IMG XR PROCEDURES Final Res ult * [...] was last reviewed 2021. Testing performed by: [address] [address] Blood 02/04/2025 10:3 3 AM CDT 02/04/2025 11:17 AM CDT us Jordan Escalera NP LAB BLOOD ORDERABLES Final Result [facility] ALVARE[facility] [address] [facility] Department of Laboratories [place], [place] [id number] * (ABNORMAL) Differential, auto (02/04/2025 10:33 AM CDT) Pathologist [facility] Neutrophil abs 10.94(H) 1.50 - 6.50 K/cumm Comment:Testing performed by : [address] [address] Imm gran abs 0.25(H) 0.00 - 0.10 K/cumm [facility] ALVARE[facility] Comment:Testing performed by : [address] [address] Lymphocyte abs 1.77 0.80 - 3.30 K/cumm AYAKA ALVAREZ Comment:Testing performed by : [address] [address] Monocyte abs 1.58(H) 0.20 - 0.80 K/cumm [facility] Comment:Testing performed by : [address] [address] Eosinophil abs 0.27 0.00 - 0.50 K/cumm [facility] Comment:Testing performed by : [address] [address] Basophil abs 0.09 0.00 - 0.10 K/cumm [facility] Comment:Testing performed by : [address] [address] Neutrophil pct 73.4 % [facility] Comment: Interpretive Data Percent cell count reference ranges are not reported, since discordance with absolute values may lead to misinterpretation of CBC data. Current Interpretive Data was last revised on 2018. Testing performed by: [address] [address] Imm gran pct 1.7 % [facility] Comment: Interpretive Data Percent cell count reference ranges are not reported, since discordance with absolute values may lead to misinterpretation of CBC data. Current Interpretive Data was last revised on 2018. Testing performed by: [address] [address] Lymphocyte pct 11.9 % [facility] Comment: Interpretive Data Percent cell count reference ranges are not reported, since discordance with absolute values may lead to misinterpretation of CBC data. Current Interpretive Data was last revised on 2018. Testing performed by: [address] [address] Monocyte pct 10.6 % [facility] Comment: Interpretive Data Percent cell count reference ranges are not reported, since discordance with absolute values may lead to misinterpretation of CBC data. Current Interpretive Data was last revised on 2018. Testing performed by: [address] [address] Eosinophil pct 1.8 % [facility] Comment: Interpretive Data Percent cell count reference ranges are not reported, since discordance with absolute values may lead to misinterpretation of CBC data. Current Interpretive Data was last revised on 2018. Testing performed by: [address] [place] [address] Basophil pct 0.6 % [facility] Comment: Interpretive Data Percent cell count reference ranges are not reported, since discordance with absolute values may lead to misinterpretation of CBC data. Current Interpretive Data was last revised on 2018. Testing performed by: [address] [address] Blood 02/04/2025 10:3 3 AM CDT 02/04/2025 11:19 AM CDT us Jordan Escalera CRIME SCENE INVESTIGATOR LAB BLOOD ORDERABLES Final Result [facility] [address] [facility] Department [place] [address] * Urinalysis reflex to microscopic and culture Urine, clean voided (02/04/2025 10:33 AM CDT) Color, ur Straw Yellow Comment:Testing performed by : [address] [address] Clarity, ur Clear Clear [facility]YAKA Comment:Testing performed by : [address] [address] Specific gravity, ur 1.010 1.003 - 1.030 [facility] Comment:Testing performed by : [address] [address] pH, urine 6.5 A[facility]A Comment: Interpretive Data U rine pH is affected by diet, medications, systemic acid-base disturbances, and renal tubular function. pH may affect urinary stone formation. For example, urine pH below 6.0 may help reduce the tendency for calcium phosphate stones and pH greater than 6.0 may reduce the tendency for uric acid stone formation. Source: [facility] TORCH.sh Current Interpretive Data was last revised on 2017 Testing performed by: [address] [address] Protein, ur ql Negative Negative AYAKA Comment:Testing performed by : [address] [address] Glucose, ur ql Negative Negative AYAKA Comment:Testing performed by : [address] [address] Ketones, ur Negative Negative [facility]YAKA ALVAREZ Comment:Testing performed by : [address], [place]., [address] Bilirubin, ur Negative Negative AYAKA ALVAREZ Comment:Testing performed by : [address], [place]., [address] Blood, ur Negative Negative AYAKA ALVAREZ Comment:Testing performed by : [address], [place]., [address] Urobilinogen, ur <2.0 <2.0 mg/dL [facility] ALVAREZ Comment:Testing performed by : [address], [place]., [address] Nitrite, ur Negative Negative AYAKA ALVAREZ Comment:Testing performed by : [address], [place]., [address] Leukocyte esterase, ur Negative Negative AYAKA Comment:Testing performed by : [address], [place]., [address] UA reflex comment Reflex conditions for microscopic UA and culture not met. AYAKA Comment:Testing performed by : [address], [place]., [address] Urine, clean voided 02/04/2025 10:33 AM CDT 02/04/2025 11:37 AM CDT us Jordan Escalera NP LAB MICROBIOLOGY - GENERAL ORDERABLES Final Result [facility] [address] [facility] Department of Laboratories [place], [place] [id number] * (ABNORMAL) CBC with auto differential (02/04/2025 10:33 AM CDT) WBC 14.90(H) 3.80 - 9.90 K/cumm Comment:Testing performed by : [address], [place]., [address] Hgb 8.9(L) 13.0 - 17.5 g/dL [facility] ALVAREZ Comment:Testing performed by : [address], [place]., [address] Hct 27.4(L) 38.9 - 50.3 % [facility]A Comment:Testing performed by : [address], [address] Plt 483(H) 150 - 400 K/cumm AYAKA ALVAREZ Comment:Testing performed by : [address], [address] MPV 9.4 9.1 - 12.3 fL [facility]YAKA Comment:Testing performed by : [address], [address] RBC 2.88(L) 4.30 - 5.80 M/cumm [facility]YAKA Comment:Testing performed by : [address], [address] MCV 95.1 81.3 - 96.4 fL [facility]YAKA Comment:Testing performed by : [address], [address] MCH 30.9 27.1 - 33.3 pg AYAKA Comment:Testing performed by : [address], [address] MCHC 32.5 32.3 - 35.7 g/dL [facility]YAKA Comment:Testing performed by : [address], [address] RDW CV 14.1 11.1 - 14.9 % [facility]A Comment:Testing performed by : [address], [address] RDW SD 48.6(H) 35.7 - 48.1 fL AYAKA Comment:Testing performed by : [address], [address] NRBC abs 0.00 0.00 - 0.01 K/cumm AYAKA Comment:Testing performed by : [address], [address] Blood 02/04/2025 10:3 3 AM CDT 02/04/2025 11:19 AM CDT us Jordan Escalera NP LAB BLOOD ORDERABLES Final Result [facility] ALVAREZ [address] [facility] Department [place] [address] * (ABNORMAL) Comprehensive metabolic panel (02/04/2025 10:33 AM CDT) Sodium 130(L) 135 - 145 mmol/L Comment:Testing performed by : [address] [address] Potassium, pl 4.6 3.3 - 4.9 mmol/L AYAKA Comment:Testing performed by : [address] [address] Chloride 96(L) 97 - 110 mmol/L AYAKA Comment:Testing performed by : [address] [address] CO2 24 22 - 32 mmol/L AYAKA Comment:Testing performed by : [address] [address] Anion gap 10 2 - 15 mmol/L AYAKA Comment:Testing performed by : [address] [address] BUN 29(H) 6 - 25 mg/dL AYAKA Comment:Testing performed by : [address] [address] Creatinine 1.02 0.80 - 1.30 mg/dL AYAKA Comment:Testing performed by : [address] [address] Glucose 204(H) 70 - 199 mg/dL AYAKA [...] was last revised 2022. Testing performed by: [address] [address] Calcium 9.0 8.5 - 10.3 mg/dL AYAKA Comment:Testing performed by : [address] [address] Bilirubin, total 0.4 0.1 - 1.2 mg/dL AYAKA Comment:Testing performed by : [address] [address] Protein, pl 6.8 6.5 - 8.5 g/dL AYAKA Comment:Testing performed by : [address] [address] Albumin 3.4(L) 3.5 - 5.0 g/dL AYAKA Comment:Testing performed by : [address] [address] Alk phos 78 40 - 130 Units/L AYAKA Comment:Testing performed by : [address] [address] ALT 23 7 - 55 Units/L AYAKA Comment:Testing performed by : [address] [address] AST 30 10 - 50 Units/L AYAKA Comment:Testing performed by : [address] [address] Blood 02/04/2025 10:3 3 AM CDT 02/04/2025 11:17 AM CDT Jordan Escalera NP LAB BLOOD ORDERABLES Final Result Performing Organization Address City/State/[facility] Co de Phone Number AYAKA [address] [facility] Department [place] [address] * eGFR (01/31/2025 6:15 AM CDT) eGFR [...] AM CDT 01/31/2025 6:50 AM CDT Kasia Maldnoado MD LAB BLOOD ORDERABLES Final Res ult Performing Organization Address [facility] Co de Phone Number AYAKA [address] [place] [address] * (ABNORMAL) aPTT (01/31/2025 6:15 [...] ORDERABLES Gale l Result Performing Organization Address City/[facility]/ZIP Co de Phone Number AYAKA [address] Department [address] [address] * Protime-INR (01/31/2025 6:15 AM [...] 01/31/2025 6:40 AM CDT us Rabia Becerra CRIME SCENE INVESTIGATOR LAB BLOOD ORDERABLES Gale l Result Performing Organization Address [facility] Co de Phone Number AYAKA HARRIS [address] Department [address] [address] * (ABNORMAL) CBC without differential (01/31/2025 6:15 AM CDT) WBC 10.85(H) 3.80 - 9.90 K/cumm Hgb 8.4(L) 13.0 - 17.5 g/dL [facility] Hct 25.2(L) 38.9 - 50.3 % [facility] Plt 222 150 - 400 K/cumm [facility] MPV 9.5 9.1 - 12.3 fL [facility] RBC 2.65(L) 4.30 - 5.80 M/cumm [facility] MCV 95.1 81.3 - 96.4 fL [facility] MCH 31.7 27.1 - 33.3 pg [facility] MCHC 33.3 32.3 - 35.7 g/dL [facility] RDW CV 13.8 11.1 - 14.9 % [facility] RDW SD 48.1 35.7 - 48.1 fL [facility] NRBC abs 0.00 0.00 - 0.01 K/cumm [facility] Blood 01/31/2025 6:15 AM CDT 01/31/2025 6:40 AM CDT us Kasia Maldonado MD LAB BLOOD ORDERABLES Final Res ult Performing Organization Address [facility] Co de Phone Number AYAKA HARRIS [address] Department [address] [address] * (ABNORMAL) Basic metabolic panel [...] Glucose 103 70 - 199 mg/dL [facility] 10.3 mg/dL [facility] Blood 01/31/2025 6:15 AM CDT 01/31/2025 6:40 AM CDT us Kasia Maldonado MD LAB BLOOD ORDERABLES Final Res ult [facility] [address] Department [place] [address] * XR Chest 1 View - Portable [...] active infiltrate. The tip of the retracted [place] catheter is in the distal superior vena cava. Procedure Note Matthew More MD - 01/31/2025 EXAMINATION: XR CHEST 1 VIEW HISTORY: The patient is a 74-year-old male who has had cardiac surgery. Comparison made with the previous study dated 01/30/2025. TECHNIQUE: AP portable view of the chest. FINDINGS: Cardiomegaly with aortic atherosclerosis. No failure. No active infiltrate. The tip of the retracted [place] catheter is in the distal superior vena [...] infiltrate. The distal tip of a retracted [place] catheter is in the distal superior vena cava. Procedure Note Matthew More MD - 01/30/2025 EXAMINATION: XR CHEST 1 VIEW HISTORY: The patient is a 74-year-old male who has had cardiac surgery. Comparison made with the previous study dated 01/29/2025 TECHNIQUE: AP portable view of the chest. FINDINGS: Cardiomegaly with aortic atherosclerosis. No failure. No active infiltrate. The distal tip of a retracted [place] catheter is in the distal superior vena [...] BLOOD ORDERABLES Final Res ult AYAKA HARRIS [address] Department [place] [address] * (ABNORMAL) CBC without differential (01/30/2025 5:00 AM CDT) WBC 12.79(H) 3.80 - 9.90 K/cumm Hgb 8.6(L) 13.0 - 17.5 g/dL AYAKA HARRIS Hct 26.1(L) 38.9 - 50.3 % [facility] Plt 192 150 - 400 K/cumm [facility] MPV 9.7 9.1 - 12.3 fL [facility] RBC 2.73(L) 4.30 - 5.80 M/cumm [facility] MCV 95.6 81.3 - 96.4 fL [facility] MCH 31.5 27.1 - 33.3 pg [facility] MCHC 33.0 32.3 - 35.7 g/dL [facility] RDW CV 13.9 11.1 - 14.9 % [facility] CH RDW SD 48.7(H) 35.7 - 48.1 fL [facility] NRBC abs 0.00 0.00 - 0.01 K/cumm [facility] Blood 01/30/2025 5:00 AM CDT 01/30/2025 5:33 AM CDT Kasia Maldonado MD LAB BLOOD ORDERABLES Final Res ult [facility] [address] Department of Laboratories [place], [place] [address] * (ABNORMAL) Basic metabolic panel (01/30/2025 5:00 AM CDT) Sodium 132(L) 135 - 145 mmol/L Potassium, pl 4.2 3.3 - 4.9 mmol/L [facility] Chloride 98 97 - 110 mmol/L [facility] CO2 26 22 - 32 mmol/L [facility] Anion gap 8 2 - 15 mmol/L [facility] BUN 30(H) 6 - 25 mg/dL [facility] Creatinine 0.85 0.80 - 1.30 mg/dL [facility] Glucose 113 70 - 199 mg/dL [facility] [...] ORDERABLES Final Res ult Performing Organization Address [facility] Co de Phone Number AYAKA [address] [place] [address] * POCT glucose (01/30/2025 3:39 AM CDT) Glucose, POC 132 70 - 199 mg/dL POC Performer [id number] [facility] Blood 01/30/2025 3:39 AM CDT 01/30/2025 3:39 AM CDT Kasia Maldonado MD LAB POCT ORDERABLES - DEVICE F inal Result Performing Organization Address [facility] de Phone Number AYAKA [address] [address] [place] [address] * POCT glucose (01/29/2025 9:27 PM CDT) Glucose, POC 139 70 - 199 mg/dL POC Performer [id number] [facility] Blood 01/29/2025 9:27 PM CDT 01/29/2025 9:27 PM CDT Kasia Maldonado MD LAB POCT ORDERABLES - DEVICE F inal Result Performing Organization Address [facility] Co de Phone Number AYAKA [address] [address] [place] [address] * POCT glucose (01/29/2025 7:52 AM CDT) Glucose, POC 132 70 - 199 mg/dL POC Performer [id number] AYAKA HARRIS Blood 01/29/2025 7:52 AM CDT 01/29/2025 7:52 AM CDT Kasia Maldonado MD LAB POCT ORDERABLES - DEVICE F inal Result AYAKA [address] Department [place] [address] * XR Chest 1 View - Portable [...] Result * eGFR (01/29/2025 3:08 AM CDT) [facility] eGFR 90 >=60 mL/min/1. 73 m2 Comment: [...] Final Res ult [facility] [address] [address] Department [place] [address] * (ABNORMAL) CBC without differential (01/29/2025 3:08 AM CDT) WBC 15.72(H) 3.80 - 9.90 K/cumm Hgb 8.8(L) 13.0 - 17.5 g/dL [facility] Hct 26.6(L) 38.9 - 50.3 % [facility] Plt 155 150 - 400 K/cumm [facility] MPV 10.2 9.1 - 12.3 fL [facility] RBC 2.80(L) 4.30 - 5.80 M/cumm [facility] MCV 95.0 81.3 - 96.4 fL [facility] MCH 31.4 27.1 - 33.3 pg [facility] MCHC 33.1 32.3 - 35.7 g/dL [facility] CH RDW CV 14.0 11.1 - 14.9 % [facility] CH RDW SD 49.0(H) 35.7 - 48.1 fL [facility] NRBC abs 0.00 0.00 - 0.01 K/cumm [facility] Blood 01/29/2025 3:08 AM CDT 01/29/2025 4:52 AM CDT us Kasia Maldonado MD LAB BLOOD ORDERABLES Final Res ult AYAKA HARRIS [address] Department [place] [address] * (ABNORMAL) Basic metabolic panel (01/29/2025 3:08 [...] BLOOD ORDERABLES Final Res ult AYAKA HARRIS [address] Department [place] [address] * POCT glucose (01/28/2025 9:15 PM CDT) Glucose, POC 175 70 - 199 mg/dL POC Performer [id number] [facility] Blood 01/28/2025 9:15 PM CDT 01/28/2025 9:15 PM CDT Kasia Maldonado MD LAB POCT ORDERABLES - DEVICE F inal Result Performing Organization Address [facility] de Phone Number AYAKA KIMBERLY [address] [place] [address] * ECG 12 lead (01/28/2025 5:33 PM CDT) 01/28/2025 5:33 PM CDT Narrative [facility] - 01/29/2025 6:50 AM CDT Vent Rate: 119 bpm RR Interval: 503 msec [place] Interval: 0 msec QRS Duration: 93 msec QT Interval: 318 msec QTC Interval: 389 msec P-R-T [place]: 0 - -9 - 8 degrees IMPRESSION: ATRIAL FIBRILLATION WITH RAPID VENTRICULAR RESPONSE LOW QRS VOLTAGE IN PRECORDIAL LEADS ABNORMAL RHYTHM ECG Electronically Signed By: Dr. Rivas Lehman [facility] Result [facility] Kasia Maldonado MD ECG ORDERABLES Final Result Performing Organization Address [facility] Co de Phone Number [facility] * POCT glucose (01/28/2025 4:30 PM CDT) Glucose, POC 145 70 - 199 mg/dL POC Performer [id number] [facility] Blood 01/28/2025 4:30 PM CDT 01/28/2025 4:30 PM CDT Kasia Maldonado MD LAB POCT ORDERABLES - DEVICE F inal Result Performing Organization Address [facility] Co de Phone Number AYAKA KIMBERLY [address] Department [place] [address] * Critical Care (01/28/2025 4:27 PM CDT) [...] plan with the ICU team and other medical/product marketing consultant staff, making frequent assessments and decisions [...] * POCT glucose (01/28/2025 11:40 AM CDT) [facility] Signature Glucose, POC 145 70 - 199 mg/dL POC Performer [id number] AYAKA Blood 01/28/2025 11:4 0 AM CDT 01/28/2025 11:40 AM CDT Kasia Maldonado MD LAB POCT ORDERABLES - DEVICE F inal Result AYAKA HARRIS [address] [place] [address] * POCT glucose (01/28/2025 6:50 AM CDT) Glucose, POC 105 70 - 199 mg/dL POC Performer [id number] [facility] Blood 01/28/2025 6:50 AM CDT 01/28/2025 6:50 AM CDT Kasia Maldonado MD LAB POCT ORDERABLES - DEVICE F inal Result Performing Organization Address [facility] Co de Phone Number AYAKA HARRIS [address] [address] [place] [address] * POCT glucose (01/28/2025 5:44 AM CDT) Glucose, POC 117 70 - 199 mg/dL POC Performer [id number] [facility] Blood 01/28/2025 5:44 AM CDT 01/28/2025 5:44 AM CDT Kasia Maldonado MD LAB POCT ORDERABLES - DEVICE F inal Result Performing Organization Address [facility] de Phone Number AYAKA HARRIS [address] Department [place] [address] * XR Chest 1 View - Portable [...] in place. The tip of a retracted [place] catheter is in the superior vena cava. [...] in place. The tip of a retracted [place] catheter is in the superior vena cava. [...] MD LAB BLOOD ORDERABLES Final Res ult [facility] [address] [address] Department [place] [address] * (ABNORMAL) Calcium, ionized, whole blood (01/28/2025 4:37 AM CDT) Ca, ionized, bld 4.33(L) 4.50 - 5.10 mg/dL Blood 01/28/2025 4:37 AM CDT 01/28/2025 4:44 AM CDT Kasia Maldonado MD LAB BLOOD ORDERABLES Final Res ult Performing Organization Address [facility] Co de Phone Number AYAKA HARRIS [address] [address] [place] [address] * eGFR (01/28/2025 4:37 AM CDT) eGFR [...] ORDERABLES Final Res ult Performing Organization Address [facility]/ZIP Co de Phone Number AYAKA HARRIS [address] [address] Department of [address] [place], [place] [address] * (ABNORMAL) CBC without differential (01/28/2025 4:37 AM CDT) WBC 17.78(H) 3.80 - 9.90 K/cumm Hgb 8.8(L) 13.0 - 17.5 g/dL [facility] Hct 26.6(L) 38.9 - 50.3 % [facility] Plt 126(L) 150 - 400 K/cumm [facility] MPV 9.8 9.1 - 12.3 fL [facility] RBC 2.81(L) 4.30 - 5.80 M/cumm [facility] MCV 94.7 81.3 - 96.4 fL [facility] MCH 31.3 27.1 - 33.3 pg [facility] MCHC 33.1 32.3 - 35.7 g/dL [facility] RDW CV 14.3 11.1 - 14.9 % [facility] RDW SD 49.4(H) 35.7 - 48.1 fL [facility] NRBC abs 0.00 0.00 - 0.01 K/cumm [facility] CH Blood 01/28/2025 4:37 AM CDT 01/28/2025 4:45 AM CDT Kasia Maldonado MD LAB BLOOD ORDERABLES Final Res ult Performing Organization Address [facility] Co de Phone Number [facility] [address] [place] [address] * Magnesium (01/28/2025 4:37 AM CDT) [facility] Magnesium 2.1 1.4 - 2.5 mg/dL Blood 01/28/2025 4:37 AM CDT 01/28/2025 4:45 AM CDT Kasia Maldonado MD LAB BLOOD ORDERABLES Final Res ult Performing Organization Address [facility] de Phone Number [facility] [address] Department [place] [address] * (ABNORMAL) Basic metabolic panel (01/28/2025 4:37 AM CDT) Pathologist [facility] Sodium 136 135 - 145 mmol/L Potassium, [...] Calcium 8.1(L) 8.5 - 10.3 mg/dL [facility] Blood 01/28/2025 4:37 AM CDT 01/28/2025 4:45 AM CDT Kasia Maldonado MD LAB BLOOD ORDERABLES Final Res ult Performing Organization Address City/[facility]/ZIP Co de Phone Number [place] [address] [place] [address] * POCT glucose (01/28/2025 4:34 AM CDT) Glucose, POC 120 70 - 199 mg/dL POC Performer [id number] [facility] Blood 01/28/2025 4:34 AM CDT 01/28/2025 4:34 AM CDT Kasia Maldonado MD LAB POCT ORDERABLES - DEVICE F inal Result AYAKA [address] [address] Department [place] [address] * POCT glucose (01/28/2025 3:34 AM CDT) Glucose, POC 122 70 - 199 mg/dL POC Performer [id number] [facility] Blood 01/28/2025 3:34 AM CDT 01/28/2025 3:34 AM CDT Kasia Maldonado MD LAB POCT ORDERABLES - DEVICE F inal Result Performing Organization Address [facility] Co de Phone Number AYAKA HARRIS [address] [address] [facility] [place] [address] * POCT glucose (01/28/2025 2:36 AM CDT) Glucose, POC 98 70 - 199 mg/dL POC Performer [id number] [facility] Blood 01/28/2025 2:36 AM CDT 01/28/2025 2:36 AM CDT Kasia Maldonado MD LAB POCT ORDERABLES - DEVICE F inal Result Performing Organization Address [facility] de Phone Number AYAKA HARRIS [address] [address] [facility] [place] [address] * POCT glucose (01/28/2025 1:23 AM CDT) Glucose, POC 81 70 - 199 mg/dL POC Performer [id number] [facility] Blood 01/28/2025 1:23 AM CDT 01/28/2025 1:23 AM CDT Kasia Maldonado MD LAB POCT ORDERABLES - DEVICE F inal Result Performing Organization Address [facility] Co de Phone Number AYAKA HARRIS [address] [address] [facility] [place] [address] * POCT glucose (01/28/2025 12:15 AM CDT) Glucose, POC 103 70 - 199 mg/dL POC Performer [id number] [facility] Blood 01/28/2025 12:1 5 AM CDT 01/28/2025 12:15 AM CDT Kasia Maldonado MD LAB POCT ORDERABLES - DEVICE F inal Result Performing Organization Address [facility] Co de Phone Number AYAKA HARRIS [address] [address] [facility] [place] [address] * POCT glucose (01/27/2025 11:22 PM CDT) Glucose, POC 121 70 - 199 mg/dL POC Performer [id number] [facility] Blood 01/27/2025 11:2 2 PM CDT 01/27/2025 11:22 PM CDT Kasia Maldonado MD LAB POCT ORDERABLES - DEVICE F inal Result Performing Organization Address [facility] de Phone Number AYAKA HARRIS [address] [address] [facility] [place] [address] * POCT glucose (01/27/2025 10:19 PM CDT) Glucose, POC 129 70 - 199 mg/dL POC Performer [id number] [facility] Blood 01/27/2025 10:1 9 PM CDT 01/27/2025 10:19 PM CDT Kasia Maldonado MD LAB POCT ORDERABLES - DEVICE F inal Result Performing Organization Address [facility] de Phone Number AYAKA HARRIS [address] [address] [facility] [place] [address] * POCT glucose (01/27/2025 9:15 PM CDT) Glucose, POC 87 70 - 199 mg/dL POC Performer [id number] [facility] Blood 01/27/2025 9:15 PM CDT 01/27/2025 9:15 PM CDT Kasia Maldonado MD LAB POCT ORDERABLES - DEVICE F inal Result Performing Organization Address [facility] Co de Phone Number AYAKA HARRIS [address] [address] Department [place] [address] * POCT glucose (01/27/2025 8:04 PM CDT) Glucose, POC 116 70 - 199 mg/dL POC Performer [id number] [facility] Blood 01/27/2025 8:04 PM CDT 01/27/2025 8:04 PM CDT Kasia Maldonado MD LAB POCT ORDERABLES - DEVICE F inal Result Performing Organization Address [facility]/ZIP Co de Phone Number AYAKA HARRIS [address] [place] [address] * POCT glucose (01/27/2025 7:12 PM CDT) Pathologist [facility] Glucose, POC 138 70 - 199 mg/dL POC Performer [id number] [facility] Blood 01/27/2025 7:12 PM CDT 01/27/2025 7:12 PM CDT Kasia Maldonado MD LAB POCT ORDERABLES - DEVICE F inal Result Performing Organization Address City/[facility]/ZIP Co de Phone Number AYAKA HARRIS [address] [address] [place] [address] * eGFR (01/27/2025 6:53 PM CDT) eGFR [...] MD LAB BLOOD ORDERABLES Final Res ult [facility] [address] [address] Department [place] [address] * (ABNORMAL) CBC without differential (01/27/2025 6:53 PM CDT) WBC 17.49(H) 3.80 - 9.90 K/cumm Hgb 9.1(L) 13.0 - 17.5 g/dL [facility] Hct 27.3(L) 38.9 - 50.3 % [facility] Plt 128(L) 150 - 400 K/cumm [facility] MPV 9.5 9.1 - 12.3 fL [facility] RBC 2.89(L) 4.30 - 5.80 M/cumm [facility] MCV 94.5 81.3 - 96.4 fL [facility] MCH 31.5 27.1 - 33.3 pg [facility] MCHC 33.3 32.3 - 35.7 g/dL [facility] RDW CV 14.2 11.1 - 14.9 % [facility] RDW SD 48.1 35.7 - 48.1 fL [facility] NRBC abs 0.00 0.00 - 0.01 K/cumm [facility] Blood 01/27/2025 6:53 PM CDT 01/27/2025 6:59 PM CDT Kasia Maldonado MD LAB BLOOD ORDERABLES Final Res ult AYAKA HARRIS [address] [address] Department [place] [address] * (ABNORMAL) Basic metabolic panel (01/27/2025 6:53 PM CDT) Sodium 138 135 - 145 mmol/L Potassium, pl 3.2(L) 3.3 - 4.9 mmol/L [facility] Chloride 103 97 - 110 mmol/L [facility] CO2 22 22 - 32 mmol/L [facility] Anion gap 13 2 - 15 mmol/L [facility] BUN 21 6 - 25 mg/dL [facility] Creatinine 0.99 0.80 - 1.30 mg/dL [facility] [...] 2022. Calcium 8.4(L) 8.5 - 10.3 mg/dL [facility] Blood 01/27/2025 6:53 PM CDT 01/27/2025 6:59 PM CDT Kasia Maldonado MD LAB BLOOD ORDERABLES Final Res ult AYAKA HARRIS [address] Department [place] [address] * POCT glucose (01/27/2025 6:04 PM CDT) Pathologist [facility] Glucose, POC 117 70 - 199 mg/dL POC Performer [id number] [facility] Blood 01/27/2025 6:04 PM CDT 01/27/2025 6:04 PM CDT us Kasia Maldonado MD LAB POCT ORDERABLES - DEVICE F inal Result AYAKA [address] Department [place] [address] * Critical Care (01/27/2025 5:45 PM CDT) [...] plan with the ICU team and other medical/product marketing consultant staff, making frequent assessments and decisions [...] 166 70 - 199 mg/dL POC Performer [id number] AYAKA HARRIS Blood 01/27/2025 4:05 PM CDT 01/27/2025 4:05 PM CDT Kasia Maldonado MD LAB POCT ORDERABLES - DEVICE F inal Result Performing Organization Address [facility] Co de Phone Number AYAKA HARRIS [address] [address] [facility] [place] [address] * POCT glucose (01/27/2025 2:02 PM CDT) Glucose, POC 101 70 - 199 mg/dL POC Performer [id number] [facility] Blood 01/27/2025 2:02 PM CDT 01/27/2025 2:02 PM CDT Kasia Maldonado MD LAB POCT ORDERABLES - DEVICE F inal Result Performing Organization Address [facility] Co de Phone Number AYAKA HARRIS [address] [address] [facility] [place] [address] * POCT glucose (01/27/2025 12:17 PM CDT) Glucose, POC 83 70 - 199 mg/dL POC Performer [id number] [facility] Blood 01/27/2025 12:1 7 PM CDT 01/27/2025 12:17 PM CDT Kasia Maldonado MD LAB POCT ORDERABLES - DEVICE F inal Result Performing Organization Address [facility] Co de Phone Number AYAKA HARRIS [address] [address] [facility] [place] [address] * POCT glucose (01/27/2025 10:58 AM CDT) Glucose, POC 132 70 - 199 mg/dL POC Performer [id number] [facility] Blood 01/27/2025 10:5 8 AM CDT 01/27/2025 10:58 AM CDT Kasia Maldonado MD LAB POCT ORDERABLES - DEVICE F inal Result Performing Organization Address [facility] de Phone Number AYAKA HARRIS [address] [facility] [place] [address] * ECG 12 lead (01/27/2025 10:50 AM CDT) 01/27/2025 10:5 0 AM CDT Narrative [facility] - 01/27/2025 11:39 AM CDT Vent Rate: 99 bpm RR Interval: 602 msec [place] Interval: 163 msec QRS Duration: 93 msec QT Interval: 356 msec QTC Interval: 412 msec P-R-T [place]: 53 - -7 - -1 degrees IMPRESSION: SINUS RHYTHM WITH artifact BORDERLINE ECG Electronically Signed By: Dr. Rivas Lehman [facility] Kasia Maldonado MD ECG ORDERABLES Final Result Performing Organization Address [facility] Phone Number [facility] [employer] [facility] * POCT glucose (01/27/2025 7:40 AM CDT) Glucose, POC 111 70 - 199 mg/dL POC Performer [id number] [facility] 01/27/2025 7:40 AM CDT 01/27/2025 7:40 AM CDT Kasia Maldonado MD LAB POCT ORDERABLES - DEVICE F inal Result Performing Organization Address [facility] de Phone Number [facility]YAKA [place] [id number] [facility] [place] [address] * POCT glucose (01/27/2025 6:27 AM CDT) Glucose, POC 127 70 - 199 mg/dL POC Performer [id number] CERNER Blood 01/27/2025 6:27 AM CDT 01/27/2025 6:27 AM CDT Kasia Maldonado MD LAB POCT ORDERABLES - DEVICE F inal Result Performing Organization Address City/[facility]/ZIP Co de Phone Number AYAKA HARRIS [address] Department [place] [address] * POCT glucose (01/27/2025 5:16 AM CDT) Glucose, POC 126 70 - 199 mg/dL POC Performer [id number] AYAKA HARRIS Blood 01/27/2025 5:16 AM CDT 01/27/2025 5:16 AM CDT Kasia Maldonado MD LAB POCT ORDERABLES - DEVICE F inal Result Performing Organization Address [facility] Co de Phone Number AYAKA HARRIS [address] Department [place] [address] * XR Chest 1 View - Portable [...] tubes. Left thoracostomy tube mediastinal drain and [place]-Karis catheter remain in place. Mild cardiomegaly is seen without failure. No pneumothorax. Procedure Note Sunil Luna MD - 01/27/2025 EXAMINATION: XR CHEST 1 VIEW DATE: 01/27/2025 4:10 AM HISTORY: Cardiac surgery FINDINGS:Compared with the study of the previous day, the patient is extubated with removal of endotracheal and nasogastric tubes. Left thoracostomy tube mediastinal drain and [place]Karis catheter remain in place. Mild cardiomegaly is [...] LAB BLOOD ORDERABLES Final Res ult AYAKA [address] Department [place] [address] * eGFR (01/27/2025 4:05 AM CDT) eGFR [...] Final Res ult [facility] [address] Department [place] [address] * (ABNORMAL) Differential, auto (01/27/2025 4:05 AM [...] revised on 2018. Basophil pct 0.2 % [facility] Comment: Interpretive Data Percent cell count reference ranges are not reported, since discordance with absolute values may lead to misinterpretation of CBC data. Current Interpretive Data was last revised on 2018. Blood 01/27/2025 4:05 AM CDT 01/27/2025 4:10 AM CDT Kasia Maldonado MD LAB BLOOD ORDERABLES Final Res ult Performing Organization Address City/[facility]/ZIP Co de Phone Number AYAKA HARRIS [address] Department [place] [address] * (ABNORMAL) CBC with auto differential (01/27/2025 4:05 AM CDT) WBC 15.28(H) 3.80 - 9.90 K/cumm Hgb 9.2(L) 13.0 - 17.5 g/dL [facility] Hct 27.6(L) 38.9 - 50.3 % [facility] Plt 139(L) 150 - 400 K/cumm [facility] MPV 9.6 9.1 - 12.3 fL [facility] RBC 2.88(L) 4.30 - 5.80 M/cumm [facility] MCV 95.8 81.3 - 96.4 fL [facility] MCH 31.9 27.1 - 33.3 pg [facility] MCHC 33.3 32.3 - 35.7 g/dL [facility] RDW CV 13.7 11.1 - 14.9 % [facility] RDW SD 48.3(H) 35.7 - 48.1 fL [facility] NRBC abs 0.00 0.00 - 0.01 K/cumm [facility] Blood 01/27/2025 4:05 AM CDT 01/27/2025 4:10 AM CDT Kasia Maldonado MD LAB BLOOD ORDERABLES Final Res ult Performing Organization Address City/[facility]/ZIP Co de Phone Number AYAKA [address] Department [place] [address] * (ABNORMAL) Magnesium (01/27/2025 4:05 AM CDT) Magnesium 2.8(H) 1.4 - 2.5 mg/dL Blood 01/27/2025 4:05 AM CDT 01/27/2025 4:10 AM CDT Kasia Maldonado MD LAB BLOOD ORDERABLES Final Res ult AYAKA HARRIS [address] Department [place] [address] * (ABNORMAL) Basic metabolic panel (01/27/2025 4:05 AM CDT) Sodium 140 135 - 145 mmol/L Potassium, pl 4.0 3.3 - 4.9 mmol/L [facility] Chloride 108 97 - 110 mmol/L [facility] CO2 22 22 - 32 mmol/L [facility] Anion gap 10 2 - 15 mmol/L [facility] BUN 19 6 - 25 mg/dL [facility] Creatinine 0.75(L) 0.80 - 1.30 mg/dL [facility] [...] BLOOD ORDERABLES Final Res ult AYAKA HARRIS [address] Department [place] [address] * POCT glucose (01/27/2025 4:03 AM CDT) Glucose, POC 122 70 - 199 mg/dL POC Performer [id number] CERNER CH Blood 01/27/2025 4:03 AM CDT 01/27/2025 4:03 AM CDT Kasia Maldonado MD LAB POCT ORDERABLES - DEVICE F inal Result Performing Organization Address [facility] Co de Phone Number AYAKA HARRIS [address] [facility] [place] [address] * POCT glucose (01/27/2025 3:02 AM CDT) Glucose, POC 112 70 - 199 mg/dL POC Performer [id number] CERNER CH Blood 01/27/2025 3:02 AM CDT 01/27/2025 3:02 AM CDT Kasia Maldonado MD LAB POCT ORDERABLES - DEVICE F inal Result Performing Organization Address [facility] Co de Phone Number WOODROWBENITA HARRIS [address] [facility] [place] [address] * POCT glucose (01/27/2025 1:57 AM CDT) Glucose, POC 127 70 - 199 mg/dL POC Performer [id number] CERNER CH Blood 01/27/2025 1:57 AM CDT 01/27/2025 1:57 AM CDT Kasia Maldonado MD LAB POCT ORDERABLES - DEVICE F inal Result Performing Organization Address [facility] Co de Phone Number AYAKA HARRIS [address] [facility] [place] [address] * POCT glucose (01/27/2025 12:50 AM CDT) Glucose, POC 146 70 - 199 mg/dL POC Performer [id number] AYAKA Blood 01/27/2025 12:5 0 AM CDT 01/27/2025 12:50 AM CDT Result [facility] Kasia Maldonado MD LAB POCT ORDERABLES - DEVICE F inal Result Performing Organization Address [facility] Co de Phone Number WOODROWBENITA HARRIS [address] [facility] [address], [place] [address] * Potassium, whole blood (01/27/2025 12:44 AM [...] ORDERABLES Final Res ult Performing Organization Address [facility] Co de Phone Number AYAKA HARRIS [address] [place] [address] * (ABNORMAL) Hemoglobin and hematocrit (01/27/2025 12:44 AM CDT) Hgb 9.1(L) 13.0 - 17.5 g/dL Hct 27.3(L) 38.9 - 50.3 % AYAKA Blood 01/27/2025 12:4 4 AM CDT 01/27/2025 12:54 AM CDT Result [facility] Kasia Maldonado MD LAB BLOOD ORDERABLES Final Res ult Performing Organization Address City/[facility]/ZIP Co de Phone Number WOODROWBENITA HARRIS [address] Department [place] [address] * (ABNORMAL) Blood gas, arterial (01/27/2025 12:44 [...] ORDERABLES Final Res ult Performing Organization Address [facility]/ZIP Co de Phone Number AYAKA HARRIS [address] Department [place] [address] * POCT glucose (01/26/2025 11:58 PM CDT) Glucose, POC 135 70 - 199 mg/dL POC Performer [id number] CERNER CH Blood 01/26/2025 11:5 8 PM CDT 01/26/2025 11:58 PM CDT Kasia Maldonado MD LAB POCT ORDERABLES - DEVICE F inal Result Performing Organization Address City/[facility]/ZIP Co de Phone Number WOODROWBENITA HARRIS [address] Department [place] [address] * POCT glucose (01/26/2025 10:45 PM CDT) Glucose, POC 128 70 - 199 mg/dL POC Performer [id number] CERNER CH Blood 01/26/2025 10:4 5 PM CDT 01/26/2025 10:45 PM CDT Kasia Maldonado MD LAB POCT ORDERABLES - DEVICE F inal Result Performing Organization Address [facility] Co de Phone Number AYAKA HARRIS [address] [facility] [place] [address] * POCT glucose (01/26/2025 9:50 PM CDT) Glucose, POC 120 70 - 199 mg/dL POC Performer [id number] [facility] Blood 01/26/2025 9:50 PM CDT 01/26/2025 9:50 PM CDT Kasia Maldonado MD LAB POCT ORDERABLES - DEVICE F inal Result Performing Organization Address [facility] de Phone Number AYAKA HARRIS [address] [facility] [place] [address] * POCT glucose (01/26/2025 8:52 PM CDT) Glucose, POC 147 70 - 199 mg/dL POC Performer [id number] [facility] Blood 01/26/2025 8:52 PM CDT 01/26/2025 8:52 PM CDT Kasia Maldonado MD LAB POCT ORDERABLES - DEVICE F inal Result Performing Organization Address [facility] de Phone Number WOODROWBENITA HARRIS [address] Department [place] [address] * Calcium, ionized, whole blood (01/26/2025 8:02 PM CDT) Ca, ionized, bld 4.95 4.50 - 5.10 mg/dL Blood 01/26/2025 8:02 PM CDT 01/26/2025 8:16 PM CDT Kasia Maldonado MD LAB BLOOD ORDERABLES Final Res ult Performing Organization Address [facility] Co de Phone Number AYAKA HARRIS [address] [facility] [place] [address] * eGFR (01/26/2025 8:02 PM CDT) eGFR [...] LAB BLOOD ORDERABLES Final Res ult AYAKA [address] [facility] Department [place] [address] * aPTT (01/26/2025 8:02 PM CDT) aPTT [...] ORDERABLES Final Res ult Performing Organization Address City/[facility] de Phone Number AYAKA [address] Department [place] [address] * Protime-INR (01/26/2025 8:02 PM CDT) Pathologist [facility] PT 12.1 9.7 - 13.0 sec INR [...] ORDERABLES Final Res ult Performing Organization Address [facility] de Phone Number AYAKA HARRIS [address] Department [address] [address] * Fibrinogen (01/26/2025 8:02 PM CDT) [facility] Fibrinogen 248 170 - 400 mg/dL Blood 01/26/2025 8:02 PM CDT 01/26/2025 8:12 PM CDT Hollis Phillips MD LAB BLOOD ORDERAB LES Final Result Performing Organization Address [facility] Co de Phone Number AYAKA [address] Department [place] [address] * (ABNORMAL) CBC without differential (01/26/2025 8:02 PM CDT) Pathologist [facility] WBC 13.67(H) 3.80 - 9.90 K/cumm Hgb [...] ORDERABLES Final Res ult Performing Organization Address City/[facility]/ZIP Co de Phone Number [facility] [address] [facility] [place], [place] [phone] * Type and screen (01/26/2025 8:02 PM CDT) ABO Rh A Positive Blood 01/26/2025 8:02 PM CDT 01/26/2025 8:18 PM CDT Narrative [facility] - 01/26/2025 8:47 PM CDT Has the patient had Daratumumab or Isatuximab in the past 6 months?->Unknown Jordan Escalera NP LAB BLOOD BANK TEST ORDERAB LES Final Result [facility] [address] Department [address] [address] * Magnesium (01/26/2025 8:02 PM CDT) Magnesium 2.1 1.4 - 2.5 mg/dL Blood 01/26/2025 8:02 PM CDT 01/26/2025 8:14 PM CDT Kasia Maldonado MD LAB BLOOD ORDERABLES Final Res ult Performing Organization Address [facility] Co de Phone Number AYAKA HARRIS [address] Department [place] [address] * (ABNORMAL) Blood gas, arterial (01/26/2025 8:02 [...] ORDERABLES Final Res ult Performing Organization Address [facility] Co de Phone Number AYAKA HARRIS [address] Department [place] [address] * (ABNORMAL) Basic metabolic panel (01/26/2025 8:02 [...] ORDERABLES Final Res ult Performing Organization Address [facility] Co de Phone Number AYAKA HARRIS [address] [address] * POCT glucose (01/26/2025 7:36 PM CDT) Glucose, POC 137 70 - 199 mg/dL POC Performer [id number] [facility] Blood 01/26/2025 7:36 PM CDT 01/26/2025 7:36 PM CDT Kasia Maldonado MD LAB POCT ORDERABLES - DEVICE F inal Result Performing Organization Address [facility] Co de Phone Number AYAKA HARRIS [address] [place] [address] * Transfuse RBC (01/26/2025 7:27 PM CDT) Blood Hollis Phillips MD BLOOD TRANSFUSION ORDERABLES Final Result Performing Organization Address [facility] Co de Phone Number AYAKA [address] Department [address] [address] * POCT glucose (01/26/2025 6:28 PM CDT) Glucose, POC 155 70 - 199 mg/dL POC Performer [id number] [facility] Blood 01/26/2025 6:28 PM CDT 01/26/2025 6:28 PM CDT Kasia Maldonado MD LAB POCT ORDERABLES - DEVICE F inal Result Performing Organization Address [facility] de Phone Number AYAKA HARRIS [address] [place] [address] * Transfuse cryoprecipitate (pooled units) (01/26/2025 5:32 PM CDT) Blood Kasia Maldonado MD BLOOD TRANSFUSION ORDERABLES F inal Result Performing Organization Address [facility] Phone Number WO[place]ROW[place]ITA [address] [place] [address] * POCT glucose (01/26/2025 5:28 PM CDT) Pathologist [facility] Glucose, POC 153 70 - 199 mg/dL POC Performer [id number] [facility] Blood 01/26/2025 5:28 PM CDT 01/26/2025 5:28 PM CDT Kasia Maldonado MD LAB POCT ORDERABLES - DEVICE F inal Result Performing Organization Address [facility] Phone Number AYAKA [address] [place] [address] * Prepare RBC: 1 Units (01/26/2025 5:10 PM CDT) Product code [id number] Unit Number [id number] 2-H [facility] Product Blood Type APOS [facility] Dispense Status RETURNED [facility] Blood 01/26/2025 5:10 PM CDT Narrative [facility] - 01/28/2025 12:14 AM CDT Are special requirements needed? (All products are leukoreduced and CMV- safe)- >No Donor Source->[facility] Date required:-[id number] LRRBC # of [id number] Reasons:-Active bleeding, Hgb <8 g/dL} us Hollis Phillips MD BLOOD BANK PROD[place] [address] [address] Department [place] [address] * XR Chest 1 View - Portable [...] drain in place. The tip of the [place]-Karis catheter is in the undivided main pulmonary [...] drain in place. The tip of the [place]-Karis catheter is in the undivided main pulmonary [...] ORDERABLES Final Res ult Performing Organization Address City/[facility] Co de Phone Number AYAKA KIMBERLY [address] [place] [address] * aPTT (01/26/2025 4:12 PM [...] ORDERABLES Final Res ult Performing Organization Address City/[facility]/[place] [address] [address] [facility] [place], [place] [phone] * (ABNORMAL) Protime-INR (01/26/2025 4:12 PM CDT) PT 13.4(H) 9.7 - 13.0 sec INR 1.24(H) 0.90 - 1.20 [facility] [...] Final Res ult [facility] [address] Department [place] [address] * (ABNORMAL) CBC without differential (01/26/2025 4:12 PM CDT) WBC 19.20(H) 3.80 - 9.90 K/cumm Hgb 8.8(L) 13.0 - 17.5 g/dL [facility] Comment:Hemoglobin delta due to surgical procedure. This result has been called to Azucena Valle by [id number] on 01/26/2025 16:36:31. Hct 26.7(L) 38.9 - [...] ORDERABLES Final Res ult Performing Organization Address City/[facility] [place] [address] [address] Department [place] [address] * (ABNORMAL) Blood gas, arterial (01/26/2025 4:12 [...] ORDERABLES Final Res ult Performing Organization Address City/[facility] Co de Phone Number AYAKA HARRIS [address] Department [place] [address] * (ABNORMAL) Basic metabolic panel (01/26/2025 4:12 [...] Calcium 7.6(L) 8.5 - 10.3 mg/dL [facility] Blood 01/26/2025 4:12 PM CDT 01/26/2025 4:18 PM CDT Kasia Maldonado MD LAB BLOOD ORDERABLES Final Res ult Performing Organization Address City/[facility]/ZIP Co de Phone Number AYAKA [address] [address] Department [address] [address] * Prepare cryoprecipitate (pooled units): 2 Units (01/26/2025 3:26 PM CDT) [facility] Product code [id number] Unit Number [id number]- M [facility] Product Blood Type OPOS [facility] Dispense Status PRESUMED TRANSFUSED [facility] Blood Venous blood specimen / Unknown 01/26/2025 3:26 PM CDT Narrative [facility] - 01/27/2025 9:45 AM CDT Other indication->BLEEDING Cryo # of Lcgft-1-Ttunr Reasons:-Other (Specify)} Kasia Maldonado MD BLOOD BANK PRODUCT ORDERABLES Final Result Performing Organization Address City/[facility]/ZIP Co de Phone Number AYAKA [address] Department of [place], [place] [id number] * (ABNORMAL) POC Blood Gas and Chemistries, [...] - DEVICE F inal Result AYAKA HARRIS [address] [address] Department [place] [address] * POC Activated Clotting Time, High Range (01/26/2025 2:14 PM CDT) Pathologist [facility] ACT 126 87 - 138 sec POC Performer [id number] C[facility]ER CH Blood 01/26/2025 2:14 PM CDT 01/26/2025 2:14 PM CDT Kasia Maldonado MD LAB BLOOD ORDERABLES Final Res ult Performing Organization Address City/[facility]/ZIP Co de Phone Number AYAKA [address] [place] [address] * (ABNORMAL) POC Blood Gas [...] DEVICE F inal Result Performing Organization Address City/[facility]/ZIP Co de Phone Number AYAKA [address] Department [address] [address] * POC Activated Clotting Time, High Range (01/26/2025 1:17 PM CDT) ACT 115 87 - 138 sec POC Performer [id number] [facility] CH Blood 01/26/2025 1:17 PM CDT 01/26/2025 1:17 PM CDT Kasia Maldonado MD LAB BLOOD ORDERABLES Final Res ult AYAKA [address] [address] Department [place] [address] * (ABNORMAL) POC Blood Gas and Chemistries, [...] DEVICE F inal Result Performing Organization Address [facility] de Phone Number AYAKA HARRIS [address] [facility] [place] [address] * (ABNORMAL) POC Activated Clotting Time, High Range (01/26/2025 12:37 PM CDT) Pathologist [facility] ACT 686(H) 87 - 138 sec POC Performer [id number] [facility] Blood 01/26/2025 12:3 7 PM CDT 01/26/2025 12:37 PM CDT Kasia Maldonado MD LAB BLOOD ORDERABLES Final Res ult Performing Organization Address [facility] de Phone Number AYAKA HARRIS [address] [address] [facility] [place] [address] * Platelet count (01/26/2025 12:30 PM CDT) Pathologist [facility] Plt 209 150 - 400 K/cumm Blood 01/26/2025 12:3 0 PM CDT 01/26/2025 12:45 PM CDT Kasia Maldonado MD LAB BLOOD ORDERABLES Final Res ult Performing Organization Address [facility] de Phone Number AYAKA HARRIS [address] [address] [facility] [place] [address] * (ABNORMAL) POC Blood Gas and Chemistries, [...] DEVICE F inal Result Performing Organization Address City/[facility]/ZIP Co de Phone Number AYAKA HARRIS [address] [place], [place] [address] * (ABNORMAL) POC Activated Clotting Time, High Range (01/26/2025 11:59 AM CDT) ACT 824(H) 87 - 138 sec POC Performer [id number] [facility] Blood 01/26/2025 11:5 9 AM CDT 01/26/2025 11:59 AM CDT Kasia Maldonado MD LAB BLOOD ORDERABLES Final Res ult AYAKA HARRIS [address] Department of [address], [place] [id number] * (ABNORMAL) POC Blood Gas and Chemistries, [...] - DEVICE F inal Result AYAKA HARRIS [address] Department [place] [address] * (ABNORMAL) POC Activated Clotting Time, High Range (01/26/2025 11:29 AM CDT) ACT 674(H) 87 - 138 sec POC Performer [id number] [facility]ER CH Blood 01/26/2025 11:2 9 AM CDT 01/26/2025 11:29 AM CDT Kasia Maldonado MD LAB BLOOD ORDERABLES Final Res ult Performing Organization Address City/[facility] Co de Phone Number AYAKA HARRIS [address] Department [place] [address] * (ABNORMAL) POC Activated Clotting Time, High Range (01/26/2025 10:48 AM CDT) ACT 548(H) 87 - 138 sec POC Performer [id number] AYAKA KIMBERLY Blood 01/26/2025 10:4 8 AM CDT 01/26/2025 10:48 AM CDT Kasia Maldonado MD LAB BLOOD ORDERABLES Final Res ult Performing Organization Address [facility] de Phone Number AYAKA HARRIS [address] Department [place] [address] * BW AN SHEATH INTRODUCER PERFORMABLE, PULMONARY [...] MD ANESTHESIA ORDERABLES Final Re sult * [place] AN ELECTIVE ENDOTRACHEAL AIRWAY (01/26/2025 9:32 AM [...] DEVICE F inal Result Performing Organization Address [facility]/ZIP Co de Phone Number AYAKA HARRIS [address] [address] [place] [address] * POC Activated Clotting Time, High Range (01/26/2025 9:22 AM CDT) ACT 101 87 - 138 sec POC Performer [id number] [facility] CH Blood 01/26/2025 9:22 AM CDT 01/26/2025 9:22 AM CDT Kasia Maldonado MD LAB BLOOD ORDERABLES Final Res ult Performing Organization Address [facility] Co de Phone Number AYAKA HARRIS [address] Department of [address], [place] [phone] * Check Sample (01/26/2025 8:20 AM CDT) ABO Rh A Positive [facility] OTHER 01/26/2025 8:20 AM CDT 01/26/2025 9:06 AM CDT Kasia Maldonado MD LAB BLOOD ORDERABLES Final Res ult Performing Organization Address [facility] Co de Phone Number AYAKA HARRIS [address] [address] [facility] [address], [place] [address] CH * Prepare RBC: 4 Units (01/26/2025 7:59 AM CDT) Product code [id number] [facility]ER CH Unit Number [id number]- I [facility] Product Blood Type APOS [facility] Dispense Status RETURNED [facility] Product code [id number] [facility]ER CH Unit Number [id number]- R [facility] Product Blood Type APOS [facility] Dispense Status PRESUMED TRANSFUSED [facility] Product code [id number] Unit Number [id number]- Z [facility] Product Blood Type APOS [facility] Dispense Status RETURNED [facility] Product code [id number] [facility]ERNER CH Unit Number [id number]- K [facility] Product Blood Type APOS [facility] Dispense Status RETURNED [facility] Blood 01/26/2025 7:59 AM CDT Narrative [facility] - 01/28/2025 12:14 AM CDT Specify Procedure:->CABG Are special requirements needed? (All products are leukoreduced and CMV- safe)- >No Date required:-[id number] LRRBC # of [id number] Reasons:-Hold for procedure (specify procedure)} Jordan Escalera NP BLOOD BANK PRODUCT ORDERABL ES Final Result Performing Organization Address City/[facility] Co de Phone Number AYAKA HARRIS [address] Department of [address], [place] [phone] * POCT glucose (01/26/2025 7:43 AM CDT) [facility] Signature Glucose, POC 195 70 - 199 mg/dL POC Performer [id number] CERNER CH Blood 01/26/2025 7:43 AM CDT 01/26/2025 7:43 AM CDT Kasia Maldonado MD LAB POCT ORDERABLES - DEVICE F inal Result Performing Organization Address City/[facility] Co de Phone Number AYAKA HARRIS [address] Department of [address], [place] [id number] * ECG 12 lead (01/24/2025 11:43 AM CDT) 01/24/2025 11:4 3 AM CDT Narrative [facility] - 01/24/2025 4:24 PM CDT Vent Rate: 72 bpm RR Interval: 828 msec [place] Interval: 162 msec QRS Duration: 73 msec QT Interval: 348 msec QTC Interval: 372 msec P-R-T [place]: -6 - -23 - 13 degrees IMPRESSION: SINUS RHYTHM POSSIBLE LEFT ATRIAL ENLARGEMENT BORDERLINE LEFT AXIS DEVIATION BORDERLINE ECG Electronically Signed By: Jean Pierre Sanon MD Kasia Maldonado MD ECG ORDERABLES Final Result [facility] * XR Chest PA Lateral [...] Final Res ult [facility] [address] Department [place] [address] * Urinalysis reflex to microscopic [...] tendency for uric acid stone formation. Source: Traackr Current Interpretive Data was last revised on 2017 Protein, ur ql Negative Negative [facility] Glucose, ur ql Negative Negative [facility] Ketones, ur Negative Negative [facility] Bilirubin, ur Negative Negative [facility] Blood, ur Negative Negative [facility] Urobilinogen, ur <2.0 <2.0 mg/dL AYAKA Nitrite, ur Negative Negative [facility] Leukocyte esterase, ur Negative Negative [facility] UA reflex comment Reflex conditions for microscopic UA and culture not met. AYAKA Urine, clean voided 01/24/2025 11:11 AM CDT 01/24/2025 12:31 PM CDT Kasia Maldonado MD LAB MICROBIOLOGY - GENERAL ORD ERABLES Final Result Performing Organization Address [facility] Co de Phone Number [facility] [address] [place] [address] * aPTT (01/24/2025 11:11 AM CDT) aPTT [...] ORDERABLES Final Res ult Performing Organization Address [facility] Co de Phone Number [facility] [address] Department [place] [address] * Protime-INR (01/24/2025 11:11 AM CDT) PT [...] ORDERABLES Final Res ult Performing Organization Address [facility] Co de Phone Number AYAKA HARRIS [address] Department [place] [address] * (ABNORMAL) CBC without differential (01/24/2025 11:11 [...] ORDERABLES Final Res ult Performing Organization Address City/[facility]/ZIP Co de Phone Number AYAKA HARRIS [address] Department [place] [address] * Type and screen (01/24/2025 11:11 AM CDT) Cosmo, indirect Negative ABO Rh A Positive [facility] Blood 01/24/2025 11:1 1 AM CDT 01/24/2025 11:49 AM CDT Narrative [facility] - 01/24/2025 12:31 PM CDT Has the patient had Daratumumab or Isatuximab in the past 6 months?->Unknown Kasia Maldonado MD LAB BLOOD BANK TEST ORDERABLES Final Result Performing Organization Address City/[facility]/ZIP Co de Phone Number [facility] [address] Department [place] [address] * (ABNORMAL) Basic metabolic panel (01/24/2025 11:11 AM CDT) [facility] Sodium 134(L) 135 - 145 mmol/L Potassium, pl 4.1 3.3 - 4.9 mmol/L [facility] Chloride 100 97 - 110 mmol/L [facility] CO2 24 22 - 32 mmol/L [facility] Anion gap 10 2 - 15 mmol/L [facility] BUN 17 6 - 25 mg/dL [facility] Creatinine 0.70(L) 0.80 - 1.30 mg/dL [facility] Glucose 123 70 - 199 mg/dL [...] ORDERABLES Final Res ult Performing Organization Address City/[facility]/ZIP Co de Phone Number [facility] [address] Department [place] [address] * Carotids Duplex Bilateral (01/20/2025 2:30 PM [...] PM CDT Narrative 01/20/2025 1:59 [place] [address] Echocardiogram Report Patient Name: OSEAS MORA ALFRED : 1950 Study Date: 01/20/2025 12:49:29 PM Gender: M Tech: Location: [facility] Provider: ANABELL SAINI Height(Cm): 170 BSA: [...] Procedure Note Anabell Saini MD - 01/20/2025 [place] [address] Echocardiogram Report Patient Name: OSEAS MORA ALFRED : 1950 Study Date: 01/20/2025 12:49:29 PM Gender: M Tech: Location: [facility] Ref Provider: ANABELL SAINI Height(Cm): 170 BSA: [...] * POCT glucose (01/20/2025 10:23 AM CDT) [facility] Glucose, POC 102 70 - 199 mg/dL POC Performer [id number] AYAKA Blood 01/20/2025 10:2 3 AM CDT 01/20/2025 10:23 AM CDT Anabell Saini MD LAB POCT ORDERABLES - DEVICE Fin al Result [facility] [address] [facility] Department [place] [address] * LEFT HEART CATHETERIZATION WITH CORONARY ANGIOGRAPHY AND WITH AND WITHOUT LEFT VENTRICULOGRAM (01/20/2025 9:42 AM CDT) Anatomical Region Laterality Modality X-Ray Angiograph y Narrative 01/20/2025 10:24 AM CDT CARDIAC CATHETERIZATION REPORT Oseas Mora ENCOUNTER: [id number] Date of Procedure: 01/20/2025 BIRTHDATE: 1950 CARTOON DESIGNER: Anabell Saini MD REFERRING PHYSICIAN: Dr. Patricio [...] patient. Patient was then brought into the chemical processing laborer and was draped and prepped in [...] BLOOD ORDERABLES Final Resul t AYAKA HARRIS [address] Department [place] [address] * (ABNORMAL) Differential, auto (01/20/2025 [...] BLOOD ORDERABLES Final Resul t AYAKA HARRIS [address] Department [place] [address] * (ABNORMAL) CBC with auto differential (01/20/2025 [...] MCH 31.9 27.1 - 33.3 pg [facility] MCHC 33.7 32.3 - 35.7 g/dL [facility] RDW CV 12.9 11.1 - 14.9 % [facility] RDW SD 44.8 35.7 - 48.1 fL [facility] NRBC abs 0.00 0.00 - 0.01 K/cumm [facility] Blood 01/20/2025 8:06 AM CDT 01/20/2025 8:17 AM CDT Narrative [facility] - 01/20/2025 8:35 AM CDT If most recent labs were drawn prior to 4 AM, draw only prior to initiating procedure. us Anabell Saini MD LAB BLOOD ORDERABLES Final Resul t [facility] [address] Department [place] [address] * (ABNORMAL) Basic metabolic panel (01/20/2025 8:06 AM CDT) [facility] Sodium 139 135 - 145 mmol/L Potassium, pl 4.1 3.3 - 4.9 mmol/L [facility] Chloride 104 97 - 110 mmol/L [facility] CO2 25 22 - 32 mmol/L [facility] Anion gap 10 2 - 15 mmol/L [facility] BUN 17 6 - 25 mg/dL [facility] Creatinine 0.77(L) 0.80 - 1.30 mg/dL [facility] Glucose 115 70 - 199 mg/dL [...] ORDERABLES Final Resul t Performing Organization Address City/[facility]/ZIP Co de Phone Number AYAKA [address] Department [place] [address] * POCT glucose (01/20/2025 7:57 AM CDT) [facility] Signature Glucose, POC 109 70 - 199 mg/dL POC Performer [id number] [facility] Blood 01/20/2025 7:57 AM CDT 01/20/2025 7:57 AM CDT us Anabell Saini MD LAB POCT ORDERABLES - DEVICE Fin al Result Performing Organization Address [facility] Co de Phone Number [facility] [address] Department [place] [address] * CTA Heart and Coronary Arteries W [...] * POC ISTAT (01/12/2025 1:52 PM CDT) [facility] Creatinine, POC, bld 0.8 0.6 - 1.3 mg/dL POC Device Number [id number] AYAKA ANDRADEWCH POC Performer [id number] AYAKA ANDRADEKIMBERLY Blood 01/12/2025 1:52 PM CDT 01/12/2025 1:52 PM CDT us Shabbir White MD LAB BLOOD ORDERABL ES Final Result [facility]YAKA [facility] [address] [facility] Department [place] [address] * POCT lipid panel (12/15/2024 2:28 PM COAL LOADER) [facility] Cholesterol, POC 231 mg/dL HDL, POC 45 mg/dL Triglycerides, POC 108 mg/dL LDL Cholesterol POC 165 mg/dL Chol/HDL Ratio, POC 5.1 Non-HDL Cholesterol, POC 186 mg/dL Cholesterol Total, POC 231 mg/dL Capillary blood 12/15/2024 2 :28 PM COAL LOADER Gera Patricio MD POINT OF CARE TEST ORDERA BLES Final Result * Electrocardiogram Report (12/15/2024 8:17 AM COAL LOADER) Gera Patricio MD ECG ORDERABLES Final Res ult from Last 3 Months Insurance [facility] FEDERAL MEDICARE [facility] [employer]AL Advance Directives For more information, please contact: [phone] * Full Code (Latest Code Status on File) Date Activated Date Inactivated Comments 01/26/2025 4:03 PM 01/31/2025 9:06 PM Care Teams Java Designer Relationship Specialty Start Date End Date Shabbir White MD [address] [place] [address] PCP - General 02/07/17 Kasia Maldonado MD [address] [place] [address] Surgeon Cardiothoracic Surgery 01/31/25 Gera Patricio MD [address] [facility] [address] [place] [address] Consulting Physician Cardiology 01/31/25 Miscellaneous, Not In File 01/31/25
--- OUTSIDE RECORDS SUMMARY | 2025-02-12 12:58 | XMS_ITS ---
Author Organization [facility] Address [address] [address] Care Team Providers Care Counseling Program Leader Name Role Phone Shabbir White MD Primary Care Prov ider Kasia Maldonado MD Unavailable [phone] Gera Patricio MD Unavailable Miscellaneous, Not [...] now. Assessment & Plan (09/09/2023 1:08 PM FRONT MAKER): 2/2 RK OU, patient having issues with I/R and having other health issues Would like to return lenses and try again at another time. Will return [place] lenses and RTC for refit in future [...] next exam OS RTC for dispense reF# [id number] Assessment & Plan (05/23/2023 4:00 PM CDT): 2/2 RK OU, possible OHx of amblyopia OD; patient states that OD (even prior to RK) has never seen as well as OS Educated patient on options, corneal GP (would need reverse kate design) vs scleral Patient concerned about dryness and comfort, will go ahead with scleral fit today Today with [place] 16.0, excellent comfort OU: OD: 450um central, minimal limbal. Slighlt toe impingement 360, better periphery with flat lens OS: 450um central, minimal limbal. Slight toe impitngement 360, better periphery with flat and better vision with FSE2 Flat periphery / FSE2 / aim for 280um central clearance with adjustments today BCVA 20/30- OD; 20/25-- OS RTC for dispense Ref# [id number] Assessment & Plan (12/11/2022 4:19 PM FRONT MAKER): Patient is s/p 1 cut RK OU and has to change between several pairs of glasses through the day due to fluctuations in refractive error. Pt has been told about scleral lenses in the past and is interested in trying them. Will consult with Dr. Rivera and schedule and evaluation. Retinal drusen of both eyes 06/05/2022 Assessment & Plan (12/11/2022 4:19 PM FRONT MAKER): Mild and stable. F/u annually. Assessment & [...] CPM. Assessment & Plan (11/28/2021 1:23 PM FRONT MAKER): Continue ATs prn. Assessment & Plan (05/30/2021 2:28 PM CDT): PF ATs prn. Assessment & Plan (01/31/2021 1:46 PM CDT): Well controlled with artificial tears. CPM Assessment & Plan (12/13/2020 1:16 PM FRONT MAKER): Pt feels his symptoms are well controlled [...] 10/26/2019 Assessment & Plan (10/29/2019 7:17 PM FRONT MAKER): Chest pain is atypical in that it occurs only sometimes in his in various locations of his chest. I am suspicious that it is musculoskeletal, but would recommend a stress test. As his EKG is normal, imaging is not required. Biceps tendinitis of right upper extremity 11/25 Overview (11/25/2018): Added automatically from request for surgery [id number] Incomplete tear of right rotator cuff 11/25/2018 Overview (11/25/2018): Added automatically from request for surgery [id number] Open angle with borderline f indings and [...] ck. Assessment & Plan (12/11/2022 4:18 PM FRONT MAKER): Mild OAG vs suspect. Started on tx [...] ck. Assessment & Plan (11/28/2021 1:23 PM FRONT MAKER): Mild OAG vs suspect. IOP well controlled [...] irritation. Assessment & Plan (12/13/2020 1:21 PM FRONT MAKER): IOP stable on 1 class. Travatan is [...] OU Assessment & Plan (12/11/2022 4:19 PM FRONT MAKER): S/p RK OU Assessment & Plan (06/05/2022 3:57 PM CDT): S/p 16 incision RK. Stable. Observe. Assessment & Plan (11/28/2021 1:23 PM FRONT MAKER): S/p 16 incision RK OU Assessment & [...]
--- OUTSIDE RECORDS SUMMARY | 2025-02-12 12:58 | XMS_ITS | Encounter Summary ---
Author Organization [facility] Healthcare Address [address] [place] [address] Care Team Providers Care Dispersion Mixer Name Role Phone Shabbir White MD Primary Care Prov ider Kasia Maldonado MD Unavailable [phone] Gera Patricio MD Unavailable Miscellaneous, Not In File Unavailable Unava ilable Encounter Details Date Type Department Care Team (Late st Contact Info) Description 11/30/2021 Telephone [facility] Radiology [address] [facility] [address] [place] [phone] Kenna Boudreaux, RT Social History Tobacco [...] on file Legal Sex Male 2:36 AM 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 Gender Identity Not on file Sexual Orientation Not on file documented as of this encounter Plan of Treatment Not on file documented as of this encounter Visit Diagnoses Not on filedocumented in this encounter Care Teams Dispersion Mixer Relationship Specialty Start Date End Date Shabbir White MD [address] [place] [address] PCP - General 02/07/17 Kasia Maldonado MD [address] [place] [address] Surgeon Cardiothoracic Surgery 01/31/25 Gera Patricio MD [address] [address] Consulting Physician Cardiology 01/31/25 Miscellaneous, Not In File 01/31/25 documented as of this encounter
--- OUTSIDE RECORDS SUMMARY | 2025-02-12 12:58 | XMS_ITS | Clinical Summary ---
Author Organization [facility] Address [address] [place] [address] Care Team Providers Care Channel Rougher Name Role Phone Shabbir White MD Primary Care Provider [phone] Allergies No known active allergies Medications famotidine [...] Relevant to Health Maintenance Insurance Care Teams Channel Rougher Relationship Specialty Start Date End Date Shabbir White MD [address] [place] [address] PCP - General 08/09/12
[2025-02-12 13:32] LABS: Basophils Absolute Auto 0.1 K/mm3 (0.0-0.1); Basophils Percent Auto 0.9 % (0.2-1.2); Eosinophils Absolute Auto 0.2 K/mm3 (0-0.3); Eosinophils Percent Auto 1.4 % (0-4.4); Hematocrit 31.3 % (42.0-52.0); Hemoglobin 9.8 g/dL (14.0-18.0); Immature Granulocyte Absolute 0.06 K/mm3 (0.00-0.031); Immature Granulocyte Percent A 0.6 % (0-0.5); Lymphocytes Absolute Auto 0.98 K/mm3 (0.9-3.2); Lymphocytes Percent Auto 9.4 % (18.3-44.2); Mean Corpuscular HGB Conc 31.3 g/dl (32-36); Mean Corpuscular Hemoglobin 30.5 pg (26-34); Mean Corpuscular Volume 97.5 fl (80-100); Mean Platelet Volume 8.4 fl (7.4-10.4); Monocytes Absolute Auto 1.3 K/mm3 (0.1-0.6); Monocytes Percent Auto 12.3 % (2.6-8.5); Neutrophils Absolute Auto 7.9 K/mm3 (1.3-6.7); Neutrophils Percent Auto 75.4 % (45.5-73.1); Platelet Count Result 582 k/mm3 (150-375); Red Blood Count 3.21 M/mm3 (4.6-6.20); Red Cell Distribution Width 14.1 % (11.5-14.5); White Blood Count 10.4 K/mm3 (4.5-10.0)
[2025-02-12 13:39] LABS: Estimated CRCL calculation 49 ml/min; Estimated Glomerular Filt Rate > 60
[2025-02-12 13:45] LABS: Anion Gap 8 mmol/L (4-12); Blood Urea Nitrogen 15 mg/dL (9-20); CRP 5.7 mg/dL (<1.0); Calcium 8.7 mg/dL (8.4-10.2); Carbon Dioxide 28 mmol/L (22-30); Chloride 100 mmol/L (98-107); Estimated CRCL calculation 51 ml/min; Estimated Glomerular Filt Rate > 60; Glucose 195 mg/dL (65-110); Potassium 3.8 mmol/L (3.4-5.0); Sodium 136 mmol/L (137-145)
[2025-02-12 14:16] LABS: Erythrocyte Sedimentation Rate 90 mm/hr (0-20)
== END 2025-02-12 15:39 | disposition home or self-care (01) ==
PROVIDERS: Emergency Provider Student in an Organized Health Care Education/Training Program; PCP Family Medicine Adolescent Medicine
DX: R51.9 Headache, unspecified (principal); Z95.1 Presence of aortocoronary bypass graft; I66.21 Occlusion and stenosis of right posterior cerebral artery; I65.03 Occlusion and stenosis of bilateral vertebral arteries; I65.21 Occlusion and stenosis of right carotid artery; Z87.891 Personal history of nicotine dependence; Z90.79 Acquired absence of other genital organ(s)
CPT/HCPCS: 36415; 70496; 70498; 80048; 85025; 85652; 86140; 99284; Q9967

== ENCOUNTER 2025-04-28 11:48 | Emergency (ER) | payer BC, SELFPAY ==
[2025-04-28] VITALS (7 sets, daily range): BP systolic 144–173; BP diastolic 73–86; PULSE 72–84; RESP 15–18; TEMP 36.4–37; O2SAT 94–99
--- NOTE | ~2025-04-28 | CT_ITS ---
CTA chest PE protocol Ordering provider: Praneeth Ortega MD History: 74 years Male with . L sided pleuritic pain . Comparison: None. Technique: CT angiogram chest was performed following timed intravenous injection of contrast. Thin s lice axial images and reformatted coronal images were obtained. Three dimensional reformatted images of the chest were also obtained using a [employer] workstation. . Automated exposure control and iterati ve reconstruction technique were employed. The dose-length product was 226.56 mGy-cm. 100 ML Omnipaqu e 350 was given IV. Findings: PULMONARY ARTERIES: No pulmonary embolus. VISUALIZED THORACIC INLET: Normal. MEDIASTINUM: Aorta/coronary arteries: Mild atheromatous disease. Heart/other: The heart is slightly enlarged. Lymph nodes: No mediastinal or hilar adenopathy. Postoperative changes in the mediastinum. LUNGS: Dependent atelectatic changes. No pulmonary nodules or masses. No infiltrates or effusions. No pneumo thorax. VISUALIZED UPPER ABDOMEN: Sliding hiatus hernia. Minimal fullness of the renal pelvis bilaterally. 2 renal arteries seen on the right side. Constipation. Otherwise, the visualized upper abdomen is rosalie l. MUSCULOSKELETAL: Soft tissues: The superficial soft tissues are normal. Bones: Age appropriate degenerative changes of the spine. IMPRESSION: 1. No pulmonary embolism. 2. No acute cardiopulmonary pathology. 3. Mild cardiomegaly. 4. Sliding hiatus hernia. 5. Minimal fullness of the renal pelvis bilaterally. Reviewed, dictated and finalized at location A.
--- NOTE | ~2025-04-28 | XR_ITS ---
EXAM/PROCEDURE: XR chest 2V - 04/28/2025 13:31 CDT HISTORY: 74 years old Male with chest pain X 2-3HRS TECHNIQUE: Two view(s) of the chest. COMPARISON: 02/10/2024 FINDINGS: LUNGS/ PLEURA: No focal consolidation. No appreciable pneumothorax or large pleural effusion. HEART/ MEDIASTINUM: Cardiomediastinal silhouette is unchanged. Findings of prior median sternotomy ar e noted. BONES: No acute osseous abnormality. OTHER: Visualized upper abdomen is unremarkable. Tortuous aorta. IMPRESSION: No acute process. Reviewed, dictated and finalized at location A. IMPRESSION: No acute process.
--- NOTE | 2025-04-28 11:50 | ECG_ITS ---
Test Date: 2025-04-28 11:53:54 Measurements Intervals [place] Rate: 82 P: 69 HI: 178 QRS: 20 QRSD: 86 T: 55 QT: 365 QTc: 428 Interpretive Statements SINUS RHYTHM WITH OCCASIONAL SUPRAVENTRICULAR PREMATURE COMPLEXES u waves POSSIBLE LEFT ATRIAL ENLARGEMENT [-0.1mV P WAVE IN V1/V2] POSSIBLE RIGHT VENTRICULAR CONDUCTION DELAY [RSR (QR) IN V1/V2] No previous ECG available for comparison Electronically Signed On 04-28-2025 13:19:05 CDT by Rivas Lehman M.D.
--- OUTSIDE RECORDS SUMMARY | 2025-04-28 11:52 | XMS_ITS | Encounter Summary ---
Author Organization 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 Gender Identity Not on file Sexual Orientation Not on file documented as of this encounter Plan of Treatment Not on file documented as of this encounter Visit Diagnoses Not on filedocumented in this encounter Care Teams Computer Installation Engineer Relationship Specialty Start Date End Date Shabbir White MD [address] [place] [address] PCP - General 02/07/17 Kasia Maldonado MD [address] [place] [address] Surgeon Cardiothoracic Surgery 01/31/25 Gera Patricio MD [address] [facility] [address] [place] [address] Consulting Physician Cardiology 01/31/25 Miscellaneous, Not In File 01/31/25 documented as of this encounter
--- OUTSIDE RECORDS SUMMARY | 2025-04-28 11:52 | XMS_ITS | Clinical Summary ---
[facility] Address [address] [place] [address] Care Team Providers Care Chip Person Name Role Phone Shabbir White MD Primary Care Prov ider Kasia Maldonado MD Unavailable [phone] Sindhu Patricio MD Unavailable [phone] Miscellaneous, Not In File Unavailable Unava ilable Allergies No known active allergies Medications finasteride (PROSCAR) 5 mg tablet take 1 tablet (5MG) by oral route every day 0 07/20/20 12 Active clonazePAM (KlonoPIN) 0.5 mg disintegrating tablet Take 1 tablet (0.5 mg total) by mouth 2 (two) times a day 09/23/20 18 Active famotidine (PEPCID) 20 mg tablet Take 1 tablet (20 mg total) by mouth 2 (two) times a day 0 07/20/20 19 Active aspirin 81 mg enteric coated tabletIndications: prevention of thrombosis Take 1 tablet (81 mg total) by mouth daily 30 tablet 11 01/13/20 25 026 Active rosuvastatin (CRESTOR) 20 mg tabletIndications: Atypical chest pain Take 1 tablet (20 mg total) by mouth daily 30 tablet 11 01/13/20 25 026 Active carboxymethylce-gl ycern-poly80 0.5-1-0.5 % drops Administer 2 drops into affected eye(s) 3 (three) times a day 1-2 drops in each eye TID Active acetaminophen 500 mg capsuleIndications :Fever,Pain Take 2 capsules (1,000 mg total) by mouth every 6 (six) hours as needed for pain 02/01/20 25 Active metoprolol tartrate (LOPRESSOR) 25 mg immediate release tablet Take 0.5 tablets (12.5 mg total) by mouth 2 (two) times a day 30 tablet 1 02/01/20 25 Active Additional Information Patient not taking.Reported on 03/31/2025 latanoprost (XALATAN) 0.005 % ophthalmic solution Administer 1 drop into both eyes nightly 9 mL 3 02/17/20 25 Active predniSONE (DELTASONE) 10 mg tablet Take 1 tablet (10 mg) by mouth daily 02/26/20 25 026 Active clopidogreL (PLAVIX) 75 mg tabletIndications: Acute Coronary Syndrome Take 1 tablet (75 mg total) by mouth daily 90 tablet 1 03/22/[address] (PROTONIX) 40 mg EC tabletIndications: Stress Ulcer Prophylaxis Take 1 tablet (40 mg total) by mouth daily 90 tablet 3 03/31/[address] (PROTONIX) 40 mg EC tabletIndications: Stress Ulcer Prophylaxis Take 1 tablet (40 mg total) by mouth daily 30 tablet 1 02/04/20 25 025 Discontin ued(Reord er) Active Problems Problem Noted Date Diagnosed Date Claudication 03/31/2025 Coronary artery disease (CAD) excluded Coronary artery disease of n ative heart with stable angina pectoris 01/20/2025 Essential hypertension 12/15/2024 History of PSVT (paroxysmal supraventricular tac hycardia) 12/15/2024 History of atrial fibrillation 12/15/2024 Atypical chest pain 12/15/2024 Hyperlipidemia LDL goal <70 12/15/2024 Irregular astigmatism of both eyes 12/11/2022 Assessment & Plan (02/03/2024 11:00 AM CDT): S/p RK OU. Pt tried scleral lenses with Dr. Rivera since last visit but d/c'd due to I&R troubles. Content with glasses for now. Assessment & Plan (09/09/2023 1:08 PM IMAGING ENGINEER): 2/2 RK OU, patient having issues with I/R and having other health issues Would like to return lenses and try again at another time. Will return Quail lenses and RTC for refit in future [...] next exam OS RTC for dispense reF# [id number] Assessment & Plan (05/23/2023 4:00 PM CDT): 2/2 RK OU, possible OHx of amblyopia OD; patient states that OD (even prior to RK) has never seen as well as OS Educated patient on options, corneal GP (would need reverse kate design) vs scleral Patient concerned about dryness and comfort, will go ahead with scleral fit today Today with Quail 16.0, excellent comfort OU: OD: 450um central, minimal limbal. Slighlt toe impingement 360, better periphery with flat lens OS: 450um central, minimal limbal. Slight toe impitngement 360, better periphery with flat and better vision with FSE2 Flat periphery / FSE2 / aim for 280um central clearance with adjustments today BCVA 20/30- OD; 20/25-- OS RTC for dispense Ref# [id number] Assessment & Plan (12/11/2022 4:19 PM IMAGING ENGINEER): Patient is s/p 1 cut RK OU and has to change between several pairs of glasses through the day due to fluctuations in refractive error. Pt has been told about scleral lenses in the past and is interested in trying them. Will consult with Dr. Rivera and schedule and evaluation. Retinal drusen of both eyes 06/05/2022 Assessment & Plan (12/11/2022 4:19 PM IMAGING ENGINEER): Mild and stable. F/u annually. Assessment & [...] CPM. Assessment & Plan (11/28/2021 1:23 PM IMAGING ENGINEER): Continue ATs prn. Assessment & Plan (05/30/2021 2:28 PM CDT): PF ATs prn. Assessment & Plan (01/31/2021 1:46 PM CDT): Well controlled with artificial tears. CPM Assessment & Plan (12/13/2020 1:16 PM IMAGING ENGINEER): Pt feels his symptoms are well controlled [...] 10/26/2019 Assessment & Plan (10/29/2019 7:17 PM IMAGING ENGINEER): Chest pain is atypical in that it occurs only sometimes in his in various locations of his chest. I am suspicious that it is musculoskeletal, but would recommend a stress test. As his EKG is normal, imaging is not required. 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 VF stable. CPM with latanoprst qhs OU. F/u in 6 mos for DFE with rnfl/gcc oct. Assessment & Plan (08/11/2024 1:42 PM CDT): [...] ck. Assessment & Plan (12/11/2022 4:18 PM IMAGING ENGINEER): Mild OAG vs suspect. Started on tx [...] ck. Assessment & Plan (11/28/2021 1:23 PM IMAGING ENGINEER): Mild OAG vs suspect. IOP well controlled [...] irritation. Assessment & Plan (12/13/2020 1:21 PM IMAGING ENGINEER): IOP stable on 1 class. Travatan is [...] 11/21/2015 Corneal scar 11/21/2015 Assessment & Plan (02/16/2025 1:47 PM CDT): S/p 16 cut RK OU. Stable. Assessment & Plan (08/11/2024 1:43 PM CDT): [...] OU Assessment & Plan (12/11/2022 4:19 PM IMAGING ENGINEER): S/p RK OU Assessment & Plan (06/05/2022 3:57 PM CDT): S/p 16 incision RK. Stable. Observe. Assessment & Plan (11/28/2021 1:23 PM IMAGING ENGINEER): S/p 16 incision RK OU Assessment & Plan (05/30/2021 2:28 PM CDT): Hx of RK. Observe. Squamous cell carcinoma of skin of face 11/01/19 16 History of nonmelanoma skin cancer 09/26/2015 Dysesthesia 09/30/2014 Skin cancer 08/26/2014 Vitamin D deficiency disease 11/30/2013 Pain in soft tissues of limb 06/11/2011 Osteopenia 03/25/2011 Encounters Date Type Department Care Team Description 04/27/2025 Telephone [facility] Cardiology [address] [place] [address] Sindhu Patricio MD 04/16/2025 Telephone [facility] Ophthalmology [address] [place] [address] 1st [place] [address] Mike Xavier MD 04/13/2025 Orders Only [facility] [address] [place] [address] Eufemia Shen MD 04/06/2025 Results Follow-Up [facility] Cardiology [address] [facility] [address], [place] [address] Sindhu Patricio MD US Arterial Doppler Lower Extremity Bilateral 04/05/2025 1:00 PM CDT Ancillary Procedure [facility] at [address] [place] [address] Claudication 04/01/2025 Telephone [facility] at [address] [place] [address] Afia Carver 03/31/2025 3:00 PM CDT Office Visit [facility] at [address] [place] [address] Sindhu Patricio MD Coronary artery disease of osage artery of osage heart with stable angina pectoris (Primary Dx); Essential hypertension; History of atrial fibrillation; History of PSVT (paroxysmal supraventricular tachycardia); Hyperlipidemia LDL goal <70; Claudication 03/22/2025 Telephone [facility] [address] [place] [address] Sindhu Patricio MD 03/16/2025 1:44 PM CDT - 03/16/2025 11:59 PM CDT Hospital Encounter [facility] [address] [place] [address] Temporal pain Discharge Disposition: Discharge to home or self care 03/03/2025 2:00 PM CDT Office Visit [facility] Surgery [address] [place] [address] Kasia Maldonado MD S/P CABG x 4 (Primary Dx) 02/28/2025 Orders Only [facility] Health Information Management [address] [place] [address] Scanning, Provider 02/25/2025 2:30 PM CDT Office Visit [facility] [address] [place] [address] Meghan Camejo NP Coronary artery disease involving osage coronary artery of osage heart without angina pectoris (Primary Dx); Hx of CABG; Hospital discharge follow-up 02/25/2025 Telephone [facility] Cardiology [address] [place] [phone] Meghan Camejo NP 02/24/2025 Telephone [facility] Cardiology [address] [place] [address] Sindhu Patricio MD 02/17/2025 Documentation [facility] Surgery [address] [place] [address] [address] [place] [address] Jordan Escalrea NP 02/16/2025 1:30 PM CDT Office Visit [facility] Ophthalmology [address] [facility] 2[address] [place] [address] Sai Lo, OD 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 (Primary Dx); Corneal scar 02/16/2025 1:00 PM CDT Imaging Exam [facility] Ophthalmology [address] [facility] 2[address] [place] [address] 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 02/14/2025 Orders Only [facility] Ophthalmology [address] [facility] [address] [place] [address] Sai Lo, OD 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 (Primary Dx) 02/10/2025 10:05 AM CDT Lab [address] [address] Coronary artery disease involving osage coronary artery of osage heart without angina pectoris 02/10/2025 9:30 AM CDT Office Visit [facility] Surgery [address] [place] [address] [address] [place] [address] Jordan Escalera NP Coronary artery disease of osage heart with stable angina pectoris, unspecified vessel or lesion type (Primary Dx) 02/10/2025 Orders Only [facility] Surgery [address] [place] [address] [address] [place] [phone] Jordan Escalera NP 02/07/2025 Orders Only [facility] Surgery [address] [place] [address] [address] [place] [address] Jordan Escalera NP Coronary artery disease involving osage coronary artery of osage heart without angina pectoris (Primary Dx) 02/07/2025 Documentation [facility] Surgery [address] [place] [address] [address] [place] [address] Jordan Escalera NP 02/04/2025 1:51 PM CDT - 02/04/2025 11:59 PM CDT Hospital Encounter [facility] Diagnostic Imaging [address] [place] [address] Coronary artery disease involving osage coronary artery of osage heart without angina pectoris Discharge Disposition: Discharge to home or self care 02/04/2025 10:25 AM CDT Lab [facility] Lab [address] [place] [address] 02/04/2025 10:10 AM CDT Lab [facility] [address] [place] [address] Burning with urination 02/04/2025 Orders Only [facility] Surgery [address] [place] [address] [address] [place] [address] Jordan Escalera NP 02/04/2025 Orders Only [facility] Surgery [address] [place] [address] [address] [place] [address] Jordan Escalera NP Coronary artery disease involving osage coronary artery of osage heart without angina pectoris (Primary Dx) 02/04/2025 Orders Only [facility] Surgery [address] [place] [address] [address] [place] [address] Jordan Escalera NP Burning with urination (Primary Dx) 02/03/2025 Documentation [facility] Surgery [address] [place] [address] [address] [place] [address] Rabia Becerra NP 02/02/2025 [facility] Post Discharge Follow up phone call [facility] [address] [place] [address] Evangelina Khan 01/31/2025 Telephone [facility] Cardiology [address] [place] [address] [address], [place] [address] Alaina Henderson NP 01/26/2025 7:23 AM CDT - 01/31/2025 4:56 PM [place] [address] Kasia Maldonado MD Coronary artery disease of bypass graft of osage heart with stable angina pectoris (Primary Dx); Coronary artery disease of osage artery of osage heart with stable angina pectoris; Coronary artery disease of osage heart with stable angina pectoris, unspecified vessel or lesion type Discharge Disposition: Discharge to home, home health skilled care from Last 3 Months Surgical History Surgery Date Site/Laterality Comments CATARACT EXTRACTION Cataract Surgery KERATOPLASTY RADIAL KERATOTOMY 10/20/1988 - 10/19/1989 Bilateral MOHS SURGERY 10/20/2018 - 11/19/2018 neck COLONOSCOPY ~2015 UPPER GASTROINTESTINAL ENDOSCOPY 10/20/2018 - 10/19/2019 SPERMATOCELECTOMY ~2017 EPIDIDYMECTOMY ORCHIECTOMY Right CARDIAC CATHETERIZATION 01/20/2025 N/A Procedure: LEFT HEART CATHETERIZATION WITH CORONARY ANGIOGRAPHY AND WITH OR WITHOUT LEFT VENTRICULOGRAM [id number]; Surgeon: Jassi Nur MD; Location: CARDIAC CERTIFIED NURSE PRACTITIONER; Service: Cardiovascular; Laterality: N/A; ABLATION SVT CAPSULOTOMY [...] 1 16 1 1985 Smokeless Tobacco: Never Tobacco Cessation:Counseling Given: Not Answered Alcohol Use Standard Drinks/Week Comments Yes 1 (1 standard drink = 0.6 oz pur e alcohol) nightly [facility] Utilities Answer Date Recorded In the past 12 months has th e electric, gas, oil, or water company [...] often do you attend chur ch or advent services? Never 01/31/2025 Do you belong to any clubs o r organizations such as caodaism groups, unions, fraternal or athletic groups, or [...] any time in the past 12 m [facility], were you homeless or living in a halfway (including now)? No 01/31/2025 Personal Safety Answer Date Recorded Have you ever been in or are you currently in a harmful physical or emotional relationship or is someone making you feel afraid or unsafe? Denies 01/26/2025 Sex and Gender Information Value Date Recorded Sex Assigned at Not on file Legal Sex Male 2:36 AM IMAGING ENGINEER Gender Identity Not on file Sexual Orientation Not on file Obstetrics History Last Filed Vital Signs Vital Sign Reading Time Taken Comments Blood Pressure 138/74 03/31/2025 2:53 PM CDT Pulse 84 03/31/2025 2:53 PM CDT Temperature 36.3 C (97.3 F) 01/31/2025 12:29 PM CDT Respiratory Rate 16 03/03/2025 2:15 PM CDT Oxygen Saturation 97% 03/31/2025 2:53 PM CDT Inhaled Oxygen Concentration - - Weight 67.6 kg (149 lb) 03/31/2025 2:53 PM CDT Height 170.2 cm (5' 7) 03/31/2025 2:53 PM CDT Body Mass Index 23.34 03/31/2025 2:53 PM CDT Plan of Treatment Health Maintenance Due Date Last Done Comments Colon Cancer Screening-Colonoscopy 1950 Depression Screening 1950 Hepatitis C Screening 1950 DTaP/Tdap/Td Vaccine (1 - Tdap) 1961 Hepatitis B Screening 1968 Pneumococcal vaccine 65+ (1 of 2 - PCV) 1969 Zoster Vaccine (1 of 2) 2000 Abdominal Aortic Aneurysm (AAA) Screen 2015 Well Visit 65+ 2015 Influenza Vaccine (#1) 2025 07/21/2020 Fall Risk Assessment 01/31/2026 01/31/2025 Medical Devices Implanted Type Area Histopath Tech Device Identifier Shelf Expiration Date Model / Serial / Lot [employer] Plate Bone Low Profile 4 Hole Box Sternum Ti 115.103.04 - [id number] Implanted:Qty: 1 on 01/26/2025 by Kasia Maldonado MD at [facility] Plate N/A: Sternum [employer] 115.103.04 / / [employer] Plate Bone Low Profile 6 Hole H Shape Sternum Ti 115.102.06 - [id number] Implanted:Qty: 1 on 01/26/2025 by Kasia Maldonado MD at [facility] Plate N/A: Sternum [employer] 115.102.06 / / [employer] Plate Bone Low Profile 6 Hole O Shape Sternum Ti 115.104.06 - [id number] Implanted:Qty: 1 on 01/26/2025 by Kasia Maldonado MD at [facility] Plate N/A: Sternum [employer] 115.104.06 / / [employer] Screw Bone Slf Drl Full Thread Locking 3.5x18mm Ti 100.035.18 - [id number] Implanted:Qty: 16 on 01/26/2025 by Kasia Maldonado MD at [facility] Screw N/A: Sternum [employer] 100.035.18 / / Procedures Procedure Name Priority Date/Time Associated Diagnosis Comments AST Routine 04/15/2025 10:06 AM CDT Coronary artery disease of osage artery of osage heart with stable angina pectoris Hyperlipidemia LDL goal <70 LIPID PANEL Routine 04/15/2025 10:06 AM CDT Coronary artery disease of osage artery of osage heart with stable angina pectoris Hyperlipidemia LDL goal <70 SURGICAL PATHOLOGY Routine 04/13/2025 11 :10 AM CDT US ARTERIAL DOPPLER LOWER EXTREMITY BILATERAL Schedule Routine, Read Routine (OP Routine) 04/05/2025 1:23 PM CDT Claudication US CAROTID DUPLEX UNILATERAL LEFT Schedule Routine, Read Routine (OP Routine) 03/16/2025 2:49 PM CDT Temporal pain SCAN - OTHER ORDERS 02/28/2025 DE LA TORRE VISUAL FIELD - OU - BOTH EYES Routine 02/16/2025 1:46 PM CDT 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 EGFR Routine 02/10/2025 10:33 AM CDT Coronary artery disease involving osage coronary artery of osage heart without angina pectoris CBC WITHOUT DIFFERENTIAL Routine 02/10/2025 10:33 AM CDT Coronary artery disease involving osage coronary artery of osage heart without angina pectoris COMPREHENSIVE METABOLIC PANEL Routine 02/10/2025 10:33 AM CDT Coronary artery disease involving osage coronary artery of osage heart without angina pectoris XR CHEST PA LATERAL 2 VIEWS Schedule Routine, Read Routine (OP Routine) 02/04/2025 1:58 PM CDT Coronary artery disease involving osage coronary artery of osage heart without angina pectoris EGFR Routine 02/04/2025 10:33 AM CDT DIFFERENTIAL AUTO Routine 02/04/2025 10: 33 AM CDT CBC WITH AUTO DIFFERENTIAL Routine [...] AM CDT POCT GLUCOSE DEVICE Routine 01/30/2025 3 :39 AM CDT POCT GLUCOSE DEVICE Routine 01/29/2025 9 :27 PM CDT POCT GLUCOSE DEVICE Routine 01/29/2025 7 :52 AM CDT XR CHEST 1 VIEW IP Routine 01/29/2025 6:15 AM CDT EGFR Routine 01/29/2025 3:08 AM CDT CBC WITHOUT DIFFERENTIAL Routine 01/29/2025 3:08 AM CDT BASIC METABOLIC PANEL Routine 01/29/2025 3:08 AM CDT POCT GLUCOSE DEVICE Routine 01/28/2025 9 :15 PM CDT ECG 12-LEAD STAT 01/28/2025 5:33 PM CDT POCT GLUCOSE DEVICE Routine 01/28/2025 4 :30 PM CDT CRITICAL CARE Routine 01/28/2025 4:27 PM CDT Coronary artery disease of osage artery of osage heart with stable angina pectoris POCT GLUCOSE DEVICE Routine 01/28/2025 1 1:40 AM CDT POCT GLUCOSE DEVICE Routine 01/28/2025 6 :50 AM CDT POCT GLUCOSE DEVICE Routine 01/28/2025 5 :44 AM CDT XR CHEST 1 VIEW IP Routine 01/28/2025 5:40 AM CDT EGFR Routine 01/28/2025 4:37 AM CDT CBC WITHOUT DIFFERENTIAL Routine 01/28/2025 4:37 AM CDT CALCIUM,IONIZED, WHOLE BLOOD Routine 01/28/2025 4:37 AM CDT MAGNESIUM Routine 01/28/2025 4:37 AM CDT BASIC METABOLIC PANEL Routine 01/28/2025 4:37 AM CDT OXYHEMOGLOBIN, CENTRAL VENOUS Routine 01/28/2025 4:37 AM CDT POCT GLUCOSE DEVICE Routine 01/28/2025 4 :34 AM CDT POCT GLUCOSE DEVICE Routine 01/28/2025 3 :34 AM CDT POCT GLUCOSE DEVICE Routine 01/28/2025 2 :36 AM CDT POCT GLUCOSE DEVICE Routine 01/28/2025 1 :23 AM CDT POCT GLUCOSE DEVICE Routine 01/28/2025 1 2:15 AM CDT POCT GLUCOSE DEVICE Routine 01/27/2025 1 1:22 PM CDT POCT GLUCOSE DEVICE Routine 01/27/2025 1 0:19 PM CDT POCT GLUCOSE DEVICE Routine 01/27/2025 9 :15 PM CDT POCT GLUCOSE DEVICE Routine 01/27/2025 8 :04 PM CDT POCT GLUCOSE DEVICE Routine 01/27/2025 7 :12 PM CDT EGFR STAT 01/27/2025 6:53 PM CDT CBC WITHOUT DIFFERENTIAL STAT 01/27/2025 6:53 PM CDT BASIC METABOLIC PANEL STAT 01/27/2025 6:53 PM CDT POCT GLUCOSE DEVICE Routine 01/27/2025 6 :04 PM CDT CRITICAL CARE Routine 01/27/2025 5:45 PM CDT Coronary artery disease of osage artery of osage heart with stable angina pectoris POCT GLUCOSE DEVICE Routine 01/27/2025 4 :05 PM CDT POCT GLUCOSE DEVICE Routine 01/27/2025 2 :02 PM CDT POCT GLUCOSE DEVICE Routine 01/27/2025 1 2:17 PM CDT POCT GLUCOSE DEVICE Routine 01/27/2025 1 0:58 AM CDT ECG 12-LEAD STAT 01/27/2025 10:50 AM CDT POCT GLUCOSE DEVICE Routine 01/27/2025 7 :40 AM CDT POCT GLUCOSE DEVICE Routine 01/27/2025 6 :27 AM CDT POCT GLUCOSE DEVICE Routine 01/27/2025 5 :16 AM CDT XR CHEST 1 VIEW IP Routine 01/27/2025 4:40 AM CDT EGFR Routine 01/27/2025 4:05 AM CDT DIFFERENTIAL AUTO Routine 01/27/2025 4:0 5 AM CDT OXYHEMOGLOBIN, CENTRAL VENOUS Routine 01/27/2025 4:05 AM CDT MAGNESIUM Routine 01/27/2025 4:05 AM CDT BASIC METABOLIC PANEL Routine 01/27/2025 4:05 AM CDT CBC WITH AUTO DIFFERENTIAL Routine 01/27/2025 4:05 AM CDT POCT GLUCOSE DEVICE Routine 01/27/2025 4 :03 AM CDT POCT GLUCOSE DEVICE Routine 01/27/2025 3 :02 AM CDT POCT GLUCOSE DEVICE Routine 01/27/2025 1 :57 AM CDT POCT GLUCOSE DEVICE Routine 01/27/2025 1 2:50 AM CDT HEMOGLOBIN AND HEMATOCRIT Timed 01/27/2025 12:44 AM CDT POTASSIUM, WHOLE BLOOD Timed 01/27/2025 12:44 AM CDT BLOOD GAS, ARTERIAL Timed 01/27/2025 1 2:44 AM CDT from Last 3 Months Results * AST (04/15/2025 10:06 AM CDT) AST 15 10 - 35 U/L [facility] Blood 04/15/2025 10:0 6 AM CDT 04/15/2025 10:07 AM CDT Narrative [facility] - 04/16/2025 4:09 AM CDT FASTING:YES FASTING: YES us Sindhu Patricio MD LAB BLOOD ORDERABLES Gale l Result [facility] [address] [facility] [place] [phone] * Lipid panel (04/15/2025 10:06 AM CDT) Pathologist [facility] Cholesterol 165 <200 mg/dL [facility] HDL 65 > OR = 40 mg/dL [facility] Triglycerides 84 <150 mg/dL [facility] LDL 83 mg/dL (calc) [facility] Comment: Reference range: <100 Desirable range <100 mg/dL for primary prevention; <70 mg/dL for patients with CHD or diabetic patients with > or = 2 CHD risk factors. LDL-C is now calculated using the Fran-Armando calculation, which is a validated novel method providing better accuracy than the Friedewald equation in the estimation of LDL-C. Fran PEMBERTON et al. ALVA. 2013;310(19): 2076-2681 (http://education.Plango.Ecoark/faq/NUI862) Chol/HDL ratio 2.5 <5.0 (calc) [facility] Non-HDL, (LDL+VLDL) 100 <130 mg/dL (calc) [facility] Comment: For patients with diabetes plus 1 major ASCVD risk factor, treating to a non-HDL-C goal of <100 mg/dL (LDL-C of <70 mg/dL) is considered a therapeutic option. Blood 04/15/2025 10:0 6 AM CDT 04/15/2025 10:07 AM CDT Narrative [facility] - 04/16/2025 4:09 AM CDT FASTING:YES FASTING: YES us Sindhu Patricio MD LAB BLOOD ORDERABLES Gale l Result [facility] [id number] [place] [phone] * Surgical pathology (04/13/2025 11:10 AM CDT) Skin, shave biopsy 04/13/2025 11:10 AM CDT 04/14/2025 5:35 AM CDT Narrative 04/15/2025 11:52 AM CDT EPIC results best viewed via link to [facility] [address] [place] [address], [address] [address] [email or web address] Note to Patients: This report may [...] FINAL REPORT Patient Information: PATIENT NAME: OSEAS MORA SEX: M : 1950 (Age: 74) Specimen Information: COLLECTED: 04/13/2025 RECEIVED: 04/14/2025 REPORTED: 04/15/2025 Submitting Physician Information: Eufemia Mcginnis MD [facility] [place], [address] [place], [place] [id number], DERMATOPATHOLOGY REPORT RESULTS DIAGNOSIS: SKIN, LEFT THENAR EMINENCE, SHAVE BIOPSY: SQUAMOUS CELL CARCINOMA IN SITU sxt/spng By this signature, I attest that the above diagnosis is based upon my personal examination of the slides(and/or other material indicated in the diagnosis). Trey Mccrary MD, PhD Report Electronically Reviewed and Signed Out By Trey Mccrary MD, PhD 04/15/2025 11:52:20 CLINICAL INFORMATION ERYTHEMATOUS PAPULE WITH HYPERKERATOTIC SCALE; SQUAMOUS CELL CARCINOMA SPECIMEN DATA MICROSCOPIC DESCRIPTION: Atypical keratinocytes are present throughout the entire thickness of the epidermis. (D04.9) GROSS DESCRIPTION: Received in a formalin-containing bottle is a superficial fragment of pale west, finely scaling, and semi-translucent skin measuring 0.4 by 0.4 by 0.1 cm. The surgical margin is inked blue. The specimen is sectioned into 2 pieces and submitted entirely in a single cassette. Due to shrinkage, measurements may be different than those at the time of procedure. sxt/dxv ICD-9 A; ZSD.1474 Clerical Data A; 11725 The characteristics of special, immunohistochemical, and immunofluorescence stains and in-situ hybridization tests performed by the [facility] were deemed acceptable in ongoing quality control tech raw materials measures and in compliance with regulations drawn from the Clinical Laboratory Improvement Act [id number] (CLIA '88). Control reactions for all stains performed were deemed adequate and appropriate by a pathologist prior to evaluation of patient tissue. Some diagnoses were rendered with the assistance of laboratory-developed tests utilizing analyte-specific reagents; the performance characteristic of these tests were determined by [facility] and are not cleared or approved by the [place] Food an Drug administration. Laboratory developed test may only be performed in a facility that is certified by the [facility] as a high-complexity laboratory under CLIA '88. These tests are used for clinical purposes and are not investigational. us Eufemia Wan MD LAB PATHOLOGY ORDERABLES Final Result * US Arterial Doppler Lower Extremity Bilateral (04/05/2025 1:23 PM CDT) Anatomical Region Laterality Modality Vascular Bilateral Ultrasound 04/05/2025 12:5 2 PM CDT Narrative 04/06/2025 11:15 AM CDT Vascular & Vein Surgery [facility] [place] [address] Lower Extremity Arterial Doppler Report Patient Name: OSEAS MORA A : 1950 Study Date: 04/05/2025 12:52:00 PM Gender: M Jewelry Salesperson: Kenna Pires Jose Luis Location: [facility] Ref Provider: SINDHU PATRICIO Quality: Adequate Order Provider: SINDHU PATRICIO PROCEDURES: Arterial Report: Bilateral lower extremity arterial Doppler exam at rest. INDICATIONS: I73.9 Peripheral vascular disease, unspecified. HISTORY: HLD. CAD. Afib. Former smoker. COMPARISONS: No previous exams. MEASUREMENTS: Right Value Left Value Rt Brachial Pressure 150 mmHg Lt Brachial Pressure 149 mmHg Rt PHYSICIAN RECRUITER Pressure 166 mmHg Lt PHYSICIAN RECRUITER Pressure 155 mmHg Rt DPA Pressure 166 mmHg Lt DPA Pressure 164 mmHg Rt PT ADENIKE Resting 1.11 Lt PT ADENIKE Resting 1.03 Rt DP ADENIKE Resting 1.11 Lt DP ADENIKE Resting 1.09 FINDINGS: Right Common Femoral Artery Analysis: The common femoral artery waveform is triphasic. Right Popliteal Artery Analysis: The popliteal waveform is triphasic. Right Posterior Tibial Artery Analysis: The posterior tibial waveform is triphasic. Right Anterior Tibial Artery Analysis: The anterior tibial waveform is triphasic. Left Common Femoral Artery Analysis: The common femoral artery waveform is triphasic. Left Popliteal Artery Analysis: The popliteal waveform is triphasic. Left Posterior Tibial Artery Analysis: The posterior tibial waveform is triphasic. Left Anterior Tibial Artery Analysis: The anterior tibial waveform is triphasic. CONCLUSIONS: 1. The bilateral lower extremity arterial Doppler reveals multiphasic waveforms in all distributions above with normal ankle/brachial indices and digit pressures. No evidence of lower extremity arterial occlusive disease at rest bilaterally. ATTESTATION: I have reviewed and interpreted the pertinent images and measurements of this study. I attest to the conclusions in the final report that is provided above. Electronically Signed By: Pio Hernandez MD 04/06/2025 10:17:44 AM CDT Procedure Note Pio Hernandez MD - 04/06/2025 Vascular & Vein Surgery [address] [place] [id number] Lower Extremity Arterial Doppler Report Patient Name: OSEAS MORA A : 1950 Study Date: 04/05/2025 12:52:00 PM Gender: M Jewelry Salesperson: Kenna Pires Jose Luis Location: [facility] Ref Provider: SINDHU PATRICIO Quality: Adequate Order Provider: SINDHU PATRICIO PROCEDURES: Arterial Report: Bilateral lower extremity arterial Doppler exam at rest. INDICATIONS: I73.9 Peripheral vascular disease, unspecified. HISTORY: HLD. CAD. Afib. Former smoker. COMPARISONS: No previous exams. MEASUREMENTS: Right Value Left Value Rt Brachial Pressure 150 mmHg Lt Brachial Pressure 149 mmHg Rt PHYSICIAN RECRUITER Pressure 166 mmHg Lt PHYSICIAN RECRUITER Pressure 155 mmHg Rt DPA Pressure 166 mmHg Lt DPA Pressure 164 mmHg Rt PT ADENIKE Resting 1.11 Lt PT ADENIKE Resting 1.03 Rt DP ADENIKE Resting 1.11 Lt DP ADENIKE Resting 1.09 FINDINGS: Right Common Femoral Artery Analysis: The common femoral artery waveform is triphasic. Right Popliteal Artery Analysis: The popliteal waveform is triphasic. Right Posterior Tibial Artery Analysis: The posterior tibial waveform is triphasic. Right Anterior Tibial Artery Analysis: The anterior tibial waveform is triphasic. Left Common Femoral Artery Analysis: The common femoral artery waveform is triphasic. Left Popliteal Artery Analysis: The popliteal waveform is triphasic. Left Posterior Tibial Artery Analysis: The posterior tibial waveform is triphasic. Left Anterior Tibial Artery Analysis: The anterior tibial waveform is triphasic. CONCLUSIONS: 1. The bilateral lower extremity arterial Doppler reveals multiphasicwaveforms in all distributions above with normal ankle/brachial indices and digitpressures. No evidence of lower extremity arterial occlusive disease at rest bilaterally. ATTESTATION: I have reviewed and interpreted the pertinent images and measurements ofthis study. I attest to the conclusions in the final report that is provided above. Electronically Signed By: Pio Hernandez MD 04/06/2025 10:17:44 AM CDT us Sindhu Patricio MD IMG US PROCEDURES Final R esult * US Carotid Duplex Unilateral Left (03/16/2025 2:49 PM CDT) Anatomical Region Laterality Modality Vascular Left Ultrasound 03/16/2025 2:45 PM CDT Impressions 03/16/2025 3:19 PM CDT No sonographic findings of temporal arteritis on the left. Dictated by: Eva Corbin MD The radiology attending physician has personally reviewed this study, and had reviewed and/or edited this written report and agrees with it. Electronically signed by: Serjio Henderson M.D. Narrative 03/16/2025 3:19 PM CDT EXAMINATION: US CAROTID DUPLEX UNILATERAL HISTORY: 74-year-old male with 4 weeks of left temporal tenderness, on steroids. FINDINGS: Color Doppler and spectral analysis were used to evaluate the left temporal arteries and a posterior branch. Left temporal artery: The left temporal artery and posterior branch are normal. There is no wall thickening, stenoses, or occlusion. The left temporal artery and its branches are compressible. Color Doppler waveforms are within normal limits. Procedure Note Serjio Henderson MD - 03/16/2025 EXAMINATION: US CAROTID DUPLEX UNILATERAL HISTORY: 74-year-old male with 4 weeks of left temporal tenderness, on steroids. FINDINGS: Color Doppler and spectral analysis were used to evaluate the left temporal arteries and a posterior branch. Left temporal artery: The left temporal artery and posterior branch are normal. There is no wall thickening, stenoses, or occlusion. The left temporal artery and its branches are compressible. Color Doppler waveforms are within normal limits. IMPRESSION: No sonographic findings of temporal arteritis on the left. Dictated by: Eva Corbin MD The radiology attending physician has personally reviewed this study, and had reviewed and/or edited this written report and agrees with it. Electronically signed by: Serjio Henderson M.D. us Unknown Referring MD IMG US PROCEDURES Final Res ult * SCAN - OTHER ORDERS (02/28/2025) us Provider Scanning Final Result * [place] Visual Field - OU - Both Eyes (02/16/2025 1:46 PM CDT) Pathologist [facility] [place] Pattern Deviation OS 1.33 db CONTINUUM Pattern Deviation OD 1.67 db CONTINUUM Mean Deviation OS -2.57 db CONTINUUM Mean Deviation OD -3.46 db CONTINUUM Anatomical Region Laterality Modality Head Other Narrative 02/16/2025 1:46 PM CDT Right Eye Fixation was good. Cooperation was good. Reliability was good. Progression has been stable. Foveal threshold was normal. Findings include normal observations, non-specific defects. Mean Deviation was -3.46 db. Pattern Deviation was 1.67 db. Left Eye Fixation was good. Cooperation was good. Reliability was good. Progression has been stable. Foveal threshold was normal. Findings include normal observations, non-specific defects. Mean Deviation was -2.57 db. Pattern Deviation was 1.33 db. Sai Lo OD OPHTH VISUAL FIELD Final Re sult * eGFR (02/10/2025 10:33 AM CDT) eGFR [...] Escalera NP LAB BLOOD ORDERABLES Final Result [facility] [address] [address] Department [place] [address] * (ABNORMAL) CBC without differential (02/10/2025 10:33 AM CDT) Pathologist [facility] [place] WBC 13.51(H) 3.80 - 9.90 K/cumm Hgb 9.7(L) 13.0 - 17.5 g/dL [facility] Hct 30.4(L) 38.9 - 50.3 % [facility] Plt 689(H) 150 - 400 K/cumm [facility] MPV 8.9(L) 9.1 - 12.3 fL [facility] RBC 3.14(L) 4.30 - 5.80 M/cumm [facility] MCV 96.8(H) 81.3 - 96.4 fL [facility] MCH 30.9 27.1 - 33.3 pg [facility] MCHC 31.9(L) 32.3 - 35.7 g/dL [facility] RDW CV 14.4 11.1 - 14.9 % [facility] RDW SD 50.6(H) 35.7 - 48.1 fL [facility] NRBC abs 0.00 0.00 - 0.01 K/cumm [facility] Blood 02/10/2025 10:3 3 AM CDT 02/10/2025 2:16 PM CDT us Jordan Escalera NP LAB BLOOD ORDERABLES [place] [address] [address] Department [place] [address] * (ABNORMAL) Comprehensive metabolic panel (02/10/2025 10:33 [...] NP LAB BLOOD ORDERABLES Final Result [facility] [address] [address] Department [place] [address] * X-ray chest 2 views (02/04/2025 1:58 [...] 7:36 PM - Electronically signed by Hollis Jenmando JOYNER: ANYA Report ID: [id number] Reading Location: [id number] Procedure Note Hollis Gonzalez MD - 02/05/2025 [...] Hollis Gonzalez M.D. MJ: ANYA Report ID: [id number] Reading Location: [id number] us Jordan Escalera MINE FOREMAN IMG XR PROCEDURES Final Res ult * [...] was last reviewed 2021. Testing performed by: [address] [address] Blood 02/04/2025 10:3 3 AM CDT 02/04/2025 11:17 AM CDT us Jordan Escalera MINE FOREMAN LAB BLOOD ORDERABLES Final Result [facility] [address] Department [place] [address] * (ABNORMAL) Differential, auto (02/04/2025 10:33 AM CDT) Neutrophil abs 10.94(H) 1.50 - 6.50 K/cumm Comment:Testing performed by : [address] [address] Imm gran abs 0.25(H) 0.00 - 0.10 K/cumm AYAKA Comment:Testing performed by : [address] [address] Lymphocyte abs 1.77 0.80 - 3.30 K/cumm AYAKA Comment:Testing performed by : [address] [address] Monocyte abs 1.58(H) 0.20 - 0.80 K/cumm AYAKA Comment:Testing performed by : [address] [address] Eosinophil abs 0.27 0.00 - 0.50 K/cumm AYAKA Comment:Testing performed by : [address] [address] Basophil abs 0.09 0.00 - 0.10 K/cumm AYAKA Comment:Testing performed by : [address] [address] Neutrophil pct 73.4 % [facility] Comment: Interpretive Data Percent cell count reference ranges are not reported, since discordance with absolute values may lead to misinterpretation of CBC data. Current Interpretive Data was last revised on 2018. Testing performed by: [address] [address] Imm gran pct 1.7 % [facility]A Comment: Interpretive Data Percent cell count reference ranges are not reported, since discordance with absolute values may lead to misinterpretation of CBC data. Current Interpretive Data was last revised on 2018. Testing performed by: [address] [address] Lymphocyte pct 11.9 % AYAKA Comment: Interpretive Data Percent cell count reference ranges are not reported, since discordance with absolute values may lead to misinterpretation of CBC data. Current Interpretive Data was last revised on 2018. Testing performed by: [address] [address] Monocyte pct 10.6 % AYAKA Comment: Interpretive Data Percent cell count reference ranges are not reported, since discordance with absolute values may lead to misinterpretation of CBC data. Current Interpretive Data was last revised on 2018. Testing performed by: [address] [address] Eosinophil pct 1.8 % AYAKA Comment: Interpretive Data Percent cell count reference ranges are not reported, since discordance with absolute values may lead to misinterpretation of CBC data. Current Interpretive Data was last revised on 2018. Testing performed by: [address] [address] Basophil pct 0.6 % AYAKA Comment: Interpretive Data Percent cell count reference ranges are not reported, since discordance with absolute values may lead to misinterpretation of CBC data. Current Interpretive Data was last revised on 2018. Testing performed by: [address] [address] Blood 02/04/2025 10:3 3 AM CDT 02/04/2025 11:19 AM CDT us Jordan Escalera MINE FOREMAN LAB BLOOD ORDERABLES Final Result [facility] [address] [facility] Department [place] [address] * Urinalysis reflex to microscopic and culture Urine, clean voided (02/04/2025 10:33 AM CDT) Color, ur Straw Yellow Comment:Testing performed by : [address] [address] Clarity, ur Clear Clear AYAKA ALVAREZ Comment:Testing performed by : [address] [address] Specific gravity, ur 1.010 1.003 - 1.030 AYAKA Comment:Testing performed by : [address] [address] pH, urine 6.5 AYAKA Comment: Interpretive Data U rine pH is affected by diet, medications, systemic acid-base disturbances, and renal tubular function. pH may affect urinary stone formation. For example, urine pH below 6.0 may help reduce the tendency for calcium phosphate stones and pH greater than 6.0 may reduce the tendency for uric acid stone formation. Source: [facility] [employer] Current Interpretive Data was last revised on 2017 Testing performed by: [address] [address] Protein, ur ql Negative Negative AYAKA Comment:Testing performed by : [address] [address] Glucose, ur ql Negative Negative AYAKA ALVAREZ Comment:Testing performed by : [address] [address] Ketones, ur Negative Negative AYAKA ALVAREZ Comment:Testing performed by : [address] [address] Bilirubin, ur Negative Negative AYAKA ALVAREZ Comment:Testing performed by : [address] [address] Blood, ur Negative Negative AYAKA ALVAREZ Comment:Testing performed by : [address] [address] Urobilinogen, ur <2.0 <2.0 mg/dL AYAKA ALVAREZ Comment:Testing performed by : [address], [place]., [address] Nitrite, ur Negative Negative AYAKA ALVAREZ Comment:Testing performed by : [address] [address] Leukocyte esterase, ur Negative Negative AYAKA ALVAREZ Comment:Testing performed by : [address], [place]., [address] UA reflex comment Reflex conditions for microscopic UA and culture not met. AYAKA ALVAREZ Comment:Testing performed by : [address], [place]., [address] Urine, clean voided 02/04/2025 10:33 AM CDT 02/04/2025 11:37 AM CDT us Jordan Escalera NP LAB MICROBIOLOGY - GENERAL ORDERABLES Final Result [facility] ALVAREZ [address] [facility] Department [place] [address] * (ABNORMAL) CBC with auto differential (02/04/2025 10:33 AM CDT) WBC 14.90(H) 3.80 - 9.90 K/cumm Comment:Testing performed by : [address] [address] Hgb 8.9(L) 13.0 - 17.5 g/dL [facility]A ALVAREZ Comment:Testing performed by : [address] [address] Hct 27.4(L) 38.9 - 50.3 % AYAKA ALVAREZ Comment:Testing performed by : [address] [address] Plt 483(H) 150 - 400 K/cumm AYAKA ALVAREZ Comment:Testing performed by : [address] [address] MPV 9.4 9.1 - 12.3 fL [facility]A ALVAREZ Comment:Testing performed by : [address] [address] RBC 2.88(L) 4.30 - 5.80 M/cumm AYAKA ALVAREZ Comment:Testing performed by : [address] [address] MCV 95.1 81.3 - 96.4 fL [facility]A Comment:Testing performed by : [address] [address] MCH 30.9 27.1 - 33.3 pg AYAKA ALVAREZ Comment:Testing performed by : [address] [address] MCHC 32.5 32.3 - 35.7 g/dL AY[facility]A ALVAREZ Comment:Testing performed by : [address], [address] RDW CV 14.1 11.1 - 14.9 % AYAKA Comment:Testing performed by : [address] [address] RDW SD 48.6(H) 35.7 - 48.1 fL AYAKA Comment:Testing performed by : [address] [address] NRBC abs 0.00 0.00 - 0.01 K/cumm AYAKA Comment:Testing performed by : [address] [address] Blood 02/04/2025 10:3 3 AM CDT 02/04/2025 11:19 AM CDT us Jordan Escalera NP LAB BLOOD ORDERABLES Final Result [facility] [address] [facility] Department of Laboratories [place], [place] [id number] * (ABNORMAL) Comprehensive metabolic panel (02/04/2025 10:33 AM CDT) [facility] Signature Sodium 130(L) 135 - 145 mmol/L Comment:Testing performed by : [address] [address] Potassium, pl 4.6 3.3 - 4.9 mmol/L AYAKA Comment:Testing performed by : [address], [place]., [address] Chloride 96(L) 97 - 110 mmol/L AYAKA Comment:Testing performed by : [address], [place]., [address] CO2 24 22 - 32 mmol/L AYAKA Comment:Testing performed by : [address], [place]., [address] Anion gap 10 2 - 15 mmol/L AYAKA Comment:Testing performed by : [address] [address] BUN 29(H) 6 - 25 mg/dL [facility]A Comment:Testing performed by : [address] [address] Creatinine 1.02 0.80 - 1.30 mg/dL AYAKA Comment:Testing performed by : [address] [address] Glucose 204(H) 70 - 199 mg/dL [facility] Comment: Interpretive Data Fasting glucose >/= 126 [...] was last revised 2022. Testing performed by: [address] [address] Calcium 9.0 8.5 - 10.3 mg/dL AYAKA Comment:Testing performed by : [address] [address] Bilirubin, total 0.4 0.1 - 1.2 mg/dL [facility]A Comment:Testing performed by : [address] [place] [address] Protein, pl 6.8 6.5 - 8.5 g/dL AYAKA ALVAREZ Comment:Testing performed by : [address] [address] Albumin 3.4(L) 3.5 - 5.0 g/dL AYAKA ALVAREZ Comment:Testing performed by : [address] [address] Alk phos 78 40 - 130 Units/L [facility]A ALVAREZ Comment:Testing performed by : [address] [address] ALT 23 7 - 55 Units/L [facility] ALVAREZ Comment:Testing performed by : [address] [address] AST 30 10 - 50 Units/L [facility] Comment:Testing performed by : [address] [address] Blood 02/04/2025 10:3 3 AM CDT 02/04/2025 11:17 AM CDT us Jordan Escalera MINE FOREMAN LAB BLOOD ORDERABLES Final Result [facility] [address] [facility] Department [place] [address] * eGFR (01/31/2025 6:15 AM CDT) eGFR [...] ORDERABLES Final Res ult Performing Organization Address [facility] Co de Phone Number [facility] [address] [address] [place] [address] * (ABNORMAL) aPTT (01/31/2025 6:15 AM CDT) aPTT 27(L) 28 - 38 sec Comment: Interpretive Data Heparin therapeutic range: 66.0 - 100.0 seconds. Range based on correlation with therapeutic heparin activity range of 0.3 - 0.7 Units/mL. Current interpretive data was last revised on 2023. Blood 01/31/2025 6:15 AM CDT 01/31/2025 6:40 AM CDT Rabia Becerra MINE FOREMAN LAB BLOOD ORDERABLES Gale l Result Performing Organization Address [facility] de Phone Number [facility] [address] [address] [place] [address] * Protime-INR (01/31/2025 6:15 AM CDT) PT 12.9 9.7 - 13.0 sec INR 1.19 0.90 - 1.20 [facility] Comment: Interpretive data Oral anticoagulant therapeutic ranges: Venous thromboembolism prophylaxis or treatment: 2.0-3.0 CARDIOLOGY Standard range: 2.0-3.0 High-intensity range: 2.5-3.5 Refer to indication-specific guidelines for appropriate target ranges for prosthetic heart valve replacement. Current interpretive data was last revised on 2019. Blood 01/31/2025 6:15 AM CDT 01/31/2025 6:40 AM CDT us Rabia Becerra MINE FOREMAN LAB BLOOD ORDERABLES Gale l Result Performing Organization Address City/[facility]/ZIP Co de Phone Number [facility] [address] Department [place] [address] * (ABNORMAL) CBC without differential (01/31/2025 6:15 AM CDT) WBC 10.85(H) 3.80 - 9.90 K/cumm Hgb 8.4(L) 13.0 - 17.5 g/dL [facility] Hct 25.2(L) 38.9 - 50.3 % [facility] Plt 222 150 - 400 K/cumm [facility] MPV 9.5 9.1 - 12.3 fL [facility] RBC 2.65(L) 4.30 - 5.80 M/cumm [facility] MCV 95.1 81.3 - 96.4 fL [facility] MCH 31.7 27.1 - 33.3 pg [facility] MCHC 33.3 32.3 - 35.7 g/dL [facility] RDW CV 13.8 11.1 - 14.9 % [facility] RDW SD 48.1 35.7 - 48.1 fL [facility] NRBC abs 0.00 0.00 - 0.01 K/cumm [facility] Blood 01/31/2025 6:15 AM CDT 01/31/2025 6:40 AM CDT us Kasia Maldonado MD LAB BLOOD ORDERABLES Final Res ult [facility] [address] Department of Laboratories [place] [id number] * (ABNORMAL) Basic metabolic panel (01/31/2025 6:15 AM CDT) Sodium 133(L) 135 - 145 mmol/L Potassium, pl 4.1 3.3 - 4.9 mmol/L [facility] Chloride 98 97 - 110 mmol/L [facility] CO2 27 22 - 32 mmol/L [facility] Anion gap 8 2 - 15 mmol/L [facility] BUN 25 6 - 25 mg/dL [facility] Creatinine 0.86 0.80 - 1.30 mg/dL [facility] Glucose 103 70 - 199 mg/dL [facility] Comment: Interpretive Data Fasting glucose >/= 126 [...] 2022. Calcium 8.4(L) 8.5 - 10.3 mg/dL [facility] Blood 01/31/2025 6:15 AM CDT 01/31/2025 6:40 AM CDT us Kasia Maldonado MD LAB BLOOD ORDERABLES Final Res ult [facility] [address] [address] Department [place] [address] * XR Chest 1 View - Portable [...] active infiltrate. The tip of the retracted Abingdon-Karis catheter is in the distal superior vena cava. Procedure Note Matthew More MD - 01/31/2025 EXAMINATION: XR CHEST 1 VIEW HISTORY: The patient is a 74-year-old male who has had cardiac surgery. Comparison made with the previous study dated 01/30/2025. TECHNIQUE: AP portable view of the chest. FINDINGS: Cardiomegaly with aortic atherosclerosis. No failure. No active infiltrate. The tip of the retracted Abingdon-Karis catheter is in the distal superior vena [...] infiltrate. The distal tip of a retracted Abingdon-Karis catheter is in the distal superior vena cava. Procedure Note Matthew More MD - 01/30/2025 EXAMINATION: XR CHEST 1 VIEW HISTORY: The patient is a 74-year-old male who has had cardiac surgery. Comparison made with the previous study dated 01/29/2025 TECHNIQUE: AP portable view of the chest. FINDINGS: Cardiomegaly with aortic atherosclerosis. No failure. No active infiltrate. The distal tip of a retracted Abingdon-Karis catheter is in the distal superior vena cava. IMPRESSION: No failure. Electronically signed by: Matthew Vas, M.D. Kasia Maldonado MD IMG XR PROCEDURES Final Result * eGFR (01/30/2025 5:00 AM CDT) Pathologist [facility] [place] eGFR >90 >=60 mL/min/1. 73 m2 Comment: [...] MD LAB BLOOD ORDERABLES Final Res ult [facility] [address] [address] Department [place] [address] * (ABNORMAL) CBC without differential (01/30/2025 5:00 AM CDT) Pathologist [facility] [place] WBC 12.79(H) 3.80 - 9.90 K/cumm Hgb 8.6(L) 13.0 - 17.5 g/dL [facility] Hct 26.1(L) 38.9 - 50.3 % [facility] Plt 192 150 - 400 K/cumm [facility] MPV 9.7 9.1 - 12.3 fL [facility] RBC 2.73(L) 4.30 - 5.80 M/cumm [facility] MCV 95.6 81.3 - 96.4 fL [facility] MCH 31.5 27.1 - 33.3 pg [facility] MCHC 33.0 32.3 - 35.7 g/dL [facility] RDW CV 13.9 11.1 - 14.9 % [facility] RDW SD 48.7(H) 35.7 - 48.1 fL [facility] NRBC abs 0.00 0.00 - 0.01 K/cumm [facility] Blood 01/30/2025 5:00 AM CDT 01/30/2025 5:33 AM CDT us Kasia Maldonado MD LAB BLOOD ORDERABLES Final Res ult [facility] [address] Department [place] [address] * (ABNORMAL) Basic metabolic panel (01/30/2025 5:00 AM CDT) Sodium 132(L) 135 - 145 mmol/L Potassium, pl 4.2 3.3 - 4.9 mmol/L [facility] Chloride 98 97 - 110 mmol/L [facility] CO2 26 22 - 32 mmol/L [facility] Anion gap 8 2 - 15 mmol/L [facility] BUN 30(H) 6 - 25 mg/dL [facility] Creatinine 0.85 0.80 - 1.30 mg/dL [facility] Glucose 113 70 - 199 mg/dL [facility] Comment: Interpretive Data Fasting glucose >/= 126 [...] 2022. Calcium 8.4(L) 8.5 - 10.3 mg/dL [facility] Blood 01/30/2025 5:00 AM CDT 01/30/2025 5:33 AM CDT Kasia Maldonado MD LAB BLOOD ORDERABLES Final Res ult Performing Organization Address [facility] Co de Phone Number AYAKA HARRIS [address] [address] [facility] [place] [address] * POCT glucose (01/30/2025 3:39 AM CDT) Glucose, POC 132 70 - 199 mg/dL POC Performer [id number] [facility] Blood 01/30/2025 3:39 AM CDT 01/30/2025 3:39 AM CDT Kasia Maldonado MD LAB POCT ORDERABLES - DEVICE F inal Result Performing Organization Address [facility] Co de Phone Number AYAKA HARRIS [address] [address] [place] [address] * POCT glucose (01/29/2025 9:27 PM CDT) Glucose, POC 139 70 - 199 mg/dL POC Performer [id number] [facility] Blood 01/29/2025 9:27 PM CDT 01/29/2025 9:27 PM CDT Kasia Maldonado MD LAB POCT ORDERABLES - DEVICE F inal Result Performing Organization Address [facility] Co de Phone Number AYAKA HARRIS [address] [address] [facility] [place] [address] * POCT glucose (01/29/2025 7:52 AM CDT) Glucose, POC 132 70 - 199 mg/dL POC Performer [id number] [facility] Blood 01/29/2025 7:52 AM CDT 01/29/2025 7:52 AM CDT Kasia Maldonado MD LAB POCT ORDERABLES - DEVICE F inal Result AYAKA [address] [facility] Department [place] [address] * XR Chest 1 View - Portable [...] MD LAB BLOOD ORDERABLES Final Res ult [facility] [address] [address] Department [place] [address] * (ABNORMAL) CBC without differential (01/29/2025 3:08 AM CDT) WBC 15.72(H) 3.80 - 9.90 K/cumm Hgb 8.8(L) 13.0 - 17.5 g/dL [facility] Hct 26.6(L) 38.9 - 50.3 % [facility] Plt 155 150 - 400 K/cumm [facility] MPV 10.2 9.1 - 12.3 fL [facility] RBC 2.80(L) 4.30 - 5.80 M/cumm [facility] MCV 95.0 81.3 - 96.4 fL [facility] MCH 31.4 27.1 - 33.3 pg [facility] MCHC 33.1 32.3 - 35.7 g/dL [facility] RDW CV 14.0 11.1 - 14.9 % [facility] RDW SD 49.0(H) 35.7 - 48.1 fL [facility] NRBC abs 0.00 0.00 - 0.01 K/cumm [facility] Blood 01/29/2025 3:08 AM CDT 01/29/2025 4:52 AM CDT Kasia Maldonado MD LAB BLOOD ORDERABLES Final Res ult Performing Organization Address City/[facility]/ZIP Co de Phone Number AYAKA [address] [employer] [place] [address] * (ABNORMAL) Basic metabolic panel (01/29/2025 3:08 AM CDT) Sodium 138 135 - 145 mmol/L Potassium, pl 3.5 3.3 - 4.9 mmol/L [facility] Chloride 99 97 - 110 mmol/L [facility] CO2 27 22 - 32 mmol/L [facility] Anion gap 12 2 - 15 mmol/L [facility] BUN 28(H) 6 - 25 mg/dL [facility] Creatinine 0.90 0.80 - 1.30 mg/dL [facility] Glucose 120 70 - 199 mg/dL [facility] Comment: Interpretive Data Fasting glucose >/= 126 [...] 2022. Calcium 8.4(L) 8.5 - 10.3 mg/dL [facility] Blood 01/29/2025 3:08 AM CDT 01/29/2025 4:51 AM CDT Kasia Maldonado MD LAB BLOOD ORDERABLES Final Res ult Performing Organization Address City/[facility]/ZIP Co de Phone Number AYAKA HARRIS [address] [address] [place] [address] * POCT glucose (01/28/2025 9:15 PM CDT) Glucose, POC 175 70 - 199 mg/dL POC Performer [id number] [facility] Blood 01/28/2025 9:15 PM CDT 01/28/2025 9:15 PM CDT Kasia Maldonado MD LAB POCT ORDERABLES - DEVICE F inal Result Performing Organization Address [facility] de Phone Number AYAKA HARRIS [address] [address] [place] [address] * ECG 12 lead (01/28/2025 5:33 PM CDT) 01/28/2025 5:33 PM CDT Narrative [facility] - 01/29/2025 6:50 AM CDT Vent Rate: 119 bpm RR Interval: 503 msec [place] Interval: 0 msec QRS Duration: 93 msec QT Interval: 318 msec QTC Interval: 389 msec P-R-T [place]: 0 - -9 - 8 degrees IMPRESSION: ATRIAL FIBRILLATION WITH RAPID VENTRICULAR RESPONSE LOW QRS VOLTAGE IN PRECORDIAL LEADS ABNORMAL RHYTHM ECG Electronically Signed By: Dr. Rivas Lehman [facility] Kasia Maldonado MD ECG ORDERABLES Final Result Performing Organization Address [facility] Phone Number [facility] [employer] [facility] * POCT glucose (01/28/2025 4:30 PM CDT) [facility] Glucose, POC 145 70 - 199 mg/dL POC Performer [id number] [facility] Blood 01/28/2025 4:30 PM CDT 01/28/2025 4:30 PM CDT Kasia Maldonado MD LAB POCT ORDERABLES - DEVICE F inal Result Performing Organization Address [facility] de Phone Number AYAKA HARRIS [address] [address] [place] [address] * Critical Care (01/28/2025 4:27 PM CDT) [...] plan with the ICU team and other medical/[employer] product consultant staff, making frequent assessments and decisions [...] spent time documenting in the medical record us Hollis Phillips MD IN CLINIC/BEDSIDE ORDERABLES Final Result * POCT glucose (01/28/2025 11:40 AM CDT) Glucose, POC 145 70 - 199 mg/dL POC Performer [id number] AYAKA HARRIS Blood 01/28/2025 11:4 0 AM CDT 01/28/2025 11:40 AM CDT Kasia Maldonado MD LAB POCT ORDERABLES - DEVICE F inal Result AYAKA [address] [address] Department [place] [address] * POCT glucose (01/28/2025 6:50 AM CDT) Glucose, POC 105 70 - 199 mg/dL POC Performer [id number] [facility] Blood 01/28/2025 6:50 AM CDT 01/28/2025 6:50 AM CDT Kasia Maldonado MD LAB POCT ORDERABLES - DEVICE F inal Result Performing Organization Address [facility] Co de Phone Number [facility] [address] [place] [address] * POCT glucose (01/28/2025 5:44 AM CDT) [facility] Glucose, POC 117 70 - 199 mg/dL POC Performer [id number] [facility] Blood 01/28/2025 5:44 AM CDT 01/28/2025 5:44 AM CDT Kasia Maldonado MD LAB POCT ORDERABLES - DEVICE F inal Result Performing Organization Address [facility] Phone Number AYAKA [address] [place] [address] * XR Chest 1 View - Portable [...] in place. The tip of a retracted Abingdon-Karis catheter is in the superior vena cava. [...] in place. The tip of a retracted Abingdon-Karis catheter is in the superior vena cava. [...] ORDERABLES Final Res ult Performing Organization Address [facility] Co de Phone Number AYAKA [address] [address] [employer] [place] [address] * (ABNORMAL) Calcium, ionized, whole blood (01/28/2025 4:37 AM CDT) Ca, ionized, bld 4.33(L) 4.50 - 5.10 mg/dL Blood 01/28/2025 4:37 AM CDT 01/28/2025 4:44 AM CDT Kasia Maldonado MD LAB BLOOD ORDERABLES Final Res ult Performing Organization Address City/[facility] Co de Phone Number AYAKA HARRIS [address] [address] [place] [address] * eGFR (01/28/2025 4:37 AM CDT) eGFR [...] MD LAB BLOOD ORDERABLES Final Res ult [facility] [address] [address] Department [place] [address] * (ABNORMAL) CBC without differential (01/28/2025 4:37 AM CDT) WBC 17.78(H) 3.80 - 9.90 K/cumm Hgb 8.8(L) 13.0 - 17.5 g/dL [facility] Hct 26.6(L) 38.9 - 50.3 % [facility] Plt 126(L) 150 - 400 K/cumm [facility] MPV 9.8 9.1 - 12.3 fL [facility] RBC 2.81(L) 4.30 - 5.80 M/cumm [facility] MCV 94.7 81.3 - 96.4 fL [facility] MCH 31.3 27.1 - 33.3 pg [facility] MCHC 33.1 32.3 - 35.7 g/dL [facility] RDW CV 14.3 11.1 - 14.9 % [facility] RDW SD 49.4(H) 35.7 - 48.1 fL [facility] NRBC abs 0.00 0.00 - 0.01 K/cumm [facility] Blood 01/28/2025 4:37 AM CDT 01/28/2025 4:45 AM CDT Kasia Maldonado MD LAB BLOOD ORDERABLES Final Res ult Performing Organization Address City/[facility]/ZIP Co de Phone Number [facility] [address] [address] [place] [address] * Magnesium (01/28/2025 4:37 AM CDT) [facility] Magnesium 2.1 1.4 - 2.5 mg/dL Blood 01/28/2025 4:37 AM CDT 01/28/2025 4:45 AM CDT Kasia Maldonado MD LAB BLOOD ORDERABLES Final Res ult Performing Organization Address [facility] Co de Phone Number [facility] [address] [address] [place] [address] * (ABNORMAL) Basic metabolic panel (01/28/2025 4:37 AM CDT) Pathologist [facility] Sodium 136 135 - 145 mmol/L Potassium, pl 3.9 3.3 - 4.9 mmol/L [facility] Chloride 102 97 - 110 mmol/L [facility] CO2 23 22 - 32 mmol/L [facility] Anion gap 11 2 - 15 mmol/L [facility] BUN 22 6 - 25 mg/dL [facility] Creatinine 0.87 0.80 - 1.30 mg/dL [facility] Glucose 114 70 - 199 mg/dL [facility] Comment: Interpretive Data Fasting glucose >/= 126 [...] Calcium 8.1(L) 8.5 - 10.3 mg/dL [facility] Blood 01/28/2025 4:37 AM CDT 01/28/2025 4:45 AM CDT Kasia Maldonado MD LAB BLOOD ORDERABLES Final Res ult Performing Organization Address [facility] de Phone Number AYAKA HARRIS [address] [address] [facility] [place] [address] * POCT glucose (01/28/2025 4:34 AM CDT) Glucose, POC 120 70 - 199 mg/dL POC Performer [id number] [facility] Blood 01/28/2025 4:34 AM CDT 01/28/2025 4:34 AM CDT Kasia Maldonado MD LAB POCT ORDERABLES - DEVICE F inal Result Performing Organization Address [facility] de Phone Number [facility] [address] [address] [place] [address] * POCT glucose (01/28/2025 3:34 AM CDT) Glucose, POC 122 70 - 199 mg/dL POC Performer [id number] [facility] Blood 01/28/2025 3:34 AM CDT 01/28/2025 3:34 AM CDT Kasia Maldonado MD LAB POCT ORDERABLES - DEVICE F inal Result AYAKA HARRIS [address] [address] [place] [address] * POCT glucose (01/28/2025 2:36 AM CDT) Glucose, POC 98 70 - 199 mg/dL POC Performer [id number] [facility] Blood 01/28/2025 2:36 AM CDT 01/28/2025 2:36 AM CDT Kasia Maldonado MD LAB POCT ORDERABLES - DEVICE F inal Result Performing Organization Address [facility] Co de Phone Number AYAKA HARRIS [address] [address] [place] [address] * POCT glucose (01/28/2025 1:23 AM CDT) Glucose, POC 81 70 - 199 mg/dL POC Performer [id number] [facility] Blood 01/28/2025 1:23 AM CDT 01/28/2025 1:23 AM CDT Kasia Maldonado MD LAB POCT ORDERABLES - DEVICE F inal Result Performing Organization Address [facility] Co de Phone Number [facility] HARRIS [address] [address] [place] [address] * POCT glucose (01/28/2025 12:15 AM CDT) Glucose, POC 103 70 - 199 mg/dL POC Performer [id number] [facility] Blood 01/28/2025 12:1 5 AM CDT 01/28/2025 12:15 AM CDT Kasia Maldonado MD LAB POCT ORDERABLES - DEVICE F inal Result Performing Organization Address [facility] Co de Phone Number AYAKA HARRIS [address] [address] [place] [address] * POCT glucose (01/27/2025 11:22 PM CDT) Glucose, POC 121 70 - 199 mg/dL POC Performer [id number] [facility] Blood 01/27/2025 11:2 2 PM CDT 01/27/2025 11:22 PM CDT Kasia Maldonado MD LAB POCT ORDERABLES - DEVICE F inal Result Performing Organization Address City/[facility] Co de Phone Number AYAKA HARRIS [address] [address] [facility] [place] [address] * POCT glucose (01/27/2025 10:19 PM CDT) Glucose, POC 129 70 - 199 mg/dL POC Performer [id number] [facility] Blood 01/27/2025 10:1 9 PM CDT 01/27/2025 10:19 PM CDT Kasia Maldonado MD LAB POCT ORDERABLES - DEVICE F inal Result Performing Organization Address [facility] Co de Phone Number AYAKA HARRIS [address] [address] [facility] [place] [address] * POCT glucose (01/27/2025 9:15 PM CDT) Glucose, POC 87 70 - 199 mg/dL POC Performer [id number] [facility] Blood 01/27/2025 9:15 PM CDT 01/27/2025 9:15 PM CDT Kasia Madlonado MD LAB POCT ORDERABLES - DEVICE F inal Result Performing Organization Address [facility] Co de Phone Number AYAKA HARRIS [address] [address] [facility] [place] [address] * POCT glucose (01/27/2025 8:04 PM CDT) Glucose, POC 116 70 - 199 mg/dL POC Performer [id number] AYAKA Blood 01/27/2025 8:04 PM CDT 01/27/2025 8:04 PM CDT us Kasia Maldonado MD LAB POCT ORDERABLES - DEVICE F inal Result Performing Organization Address [facility] Co de Phone Number [facility] [address] [address] [place] [address] * POCT glucose (01/27/2025 7:12 PM CDT) Glucose, POC 138 70 - 199 mg/dL POC Performer [id number] [facility] Blood 01/27/2025 7:12 PM CDT 01/27/2025 7:12 PM CDT Kasia Maldonado MD LAB POCT ORDERABLES - DEVICE F inal Result Performing Organization Address [facility] Co de Phone Number AYAKA [address] [address] [place] [address] * eGFR (01/27/2025 6:53 PM CDT) eGFR [...] ORDERABLES Final Res ult Performing Organization Address [facility]/ZIP Co de Phone Number AYAKA [address] Department [employer] [place], [place] [id number] * (ABNORMAL) CBC without differential (01/27/2025 6:53 [...] - 0.01 K/cumm [facility] Blood 01/27/2025 6:53 PM CDT 01/27/2025 6:59 PM CDT Kasia Maldonado MD LAB BLOOD ORDERABLES Final Res ult AYAKA HARRIS [address] [employer] [place], [place] [id number] * (ABNORMAL) Basic metabolic panel (01/27/2025 6:53 PM CDT) Sodium 138 135 - 145 mmol/L Potassium, pl 3.2(L) 3.3 - 4.9 mmol/L [facility] Chloride 103 97 - 110 mmol/L [facility] CO2 22 22 - 32 mmol/L [facility] Anion gap 13 2 - 15 mmol/L [facility] BUN 21 6 - 25 mg/dL [facility] Creatinine 0.99 0.80 - 1.30 mg/dL [facility] Glucose 118 70 - 199 mg/dL [facility] [...] 8.4(L) 8.5 - 10.3 mg/dL [facility] Blood 01/27/2025 6:53 PM CDT 01/27/2025 6:59 PM CDT Kasia Maldonado MD LAB BLOOD ORDERABLES Final Res ult Performing Organization Address [facility] Co de Phone Number AYAKA HARRIS [address] [address] [employer] [place] [address] * POCT glucose (01/27/2025 6:04 PM CDT) Glucose, POC 117 70 - 199 mg/dL POC Performer [id number] [facility] Blood 01/27/2025 6:04 PM CDT 01/27/2025 6:04 PM CDT Kasia Maldonado MD LAB POCT ORDERABLES - DEVICE F inal Result Performing Organization Address City/[facility] Co de Phone Number [facility] KIMBERLY [address] [address] [place] [address] * Critical Care (01/27/2025 5:45 PM CDT) Narrative Hollis Phillips MD - 01/27/2025 5:45 PM CDT Hollis Phillips MD 01/27/2025 7:08 PM Critical Care Performed by: Hollis Phillips MD Authorized by: Hollis Phillips MD CRITICAL CARE: Team: NE Shift: AM Level of Billing: Critical Care [...] plan with the ICU team and other medical/[employer] product consultant staff, making frequent assessments and decisions [...] 166 70 - 199 mg/dL POC Performer [id number] AYAKA HARRIS Blood 01/27/2025 4:05 PM CDT 01/27/2025 4:05 PM CDT Kasia Maldonado MD LAB POCT ORDERABLES - DEVICE F inal Result AYAKA HARRIS [address] Department [place] [address] * POCT glucose (01/27/2025 2:02 PM CDT) Glucose, POC 101 70 - 199 mg/dL POC Performer [id number] [facility] Blood 01/27/2025 2:02 PM CDT 01/27/2025 2:02 PM CDT Kasia Maldonado MD LAB POCT ORDERABLES - DEVICE F inal Result Performing Organization Address [facility] Co de Phone Number AYAKA [address] [place] [address] * POCT glucose (01/27/2025 12:17 PM CDT) Glucose, POC 83 70 - 199 mg/dL POC Performer [id number] [facility] Blood 01/27/2025 12:1 7 PM CDT 01/27/2025 12:17 PM CDT Kasia Maldonado MD LAB POCT ORDERABLES - DEVICE F inal Result Performing Organization Address [facility] Co de Phone Number WO[place]ROWB[place]ITA HARRIS [address] [address] [facility] [place] [address] * POCT glucose (01/27/2025 10:58 AM CDT) Glucose, POC 132 70 - 199 mg/dL POC Performer [id number] [facility] Blood 01/27/2025 10:5 8 AM CDT 01/27/2025 10:58 AM CDT Kasia Maldonado MD LAB POCT ORDERABLES - DEVICE F inal Result Performing Organization Address [facility]/ZIP Co de Phone Number AYAKA HARRIS [address] [address] [facility] [place] [address] * ECG 12 lead (01/27/2025 10:50 AM CDT) 01/27/2025 10:5 0 AM CDT Narrative [facility] - 01/27/2025 11:39 AM CDT Vent Rate: 99 bpm RR Interval: 602 msec [place] Interval: 163 msec QRS Duration: 93 msec QT Interval: 356 msec QTC Interval: 412 msec P-R-T [place]: 53 - -7 - -1 degrees IMPRESSION: SINUS RHYTHM WITH artifact BORDERLINE ECG Electronically Signed By: Dr. Rivas Lehman [facility] Kasia Maldonado MD ECG ORDERABLES Final Result Performing Organization Address [facility] Co de Phone Number [facility] * POCT glucose (01/27/2025 7:40 AM CDT) Glucose, POC 111 70 - 199 mg/dL POC Performer [id number] [facility] Blood 01/27/2025 7:40 AM CDT 01/27/2025 7:40 AM CDT Kasia Maldonado MD LAB POCT ORDERABLES - DEVICE F inal Result Performing Organization Address [facility] Phone Number [address] [address] [place] [address] * POCT glucose (01/27/2025 6:27 AM CDT) Glucose, POC 127 70 - 199 mg/dL POC Performer [id number] [facility] Blood 01/27/2025 6:27 AM CDT 01/27/2025 6:27 AM CDT Kasia Maldonado MD LAB POCT ORDERABLES - DEVICE F inal Result Performing Organization Address [facility] Co de Phone Number AYAKA [address] [address] [place] [address] * POCT glucose (01/27/2025 5:16 AM CDT) Glucose, POC 126 70 - 199 mg/dL POC Performer [id number] AYAKA HARRIS Blood 01/27/2025 5:16 AM CDT 01/27/2025 5:16 AM CDT Kasia Maldonado MD LAB POCT ORDERABLES - DEVICE F inal Result AYAKA HARRIS [address] [address] Department [place] [address] * XR Chest 1 View - Portable [...] tubes. Left thoracostomy tube mediastinal drain and Abingdon-Karis catheter remain in place. Mild cardiomegaly is seen without failure. No pneumothorax. Procedure Note Sunil Luna MD - 01/27/2025 EXAMINATION: XR CHEST 1 VIEW DATE: 01/27/2025 4:10 AM HISTORY: Cardiac surgery FINDINGS:Compared with the study of the previous day, the patient is extubated with removal of endotracheal and nasogastric tubes. Left thoracostomy tube mediastinal drain and Abingdon-Karis catheter remain in place. Mild cardiomegaly is [...] ORDERABLES Final Res ult Performing Organization Address [facility] Co de Phone Number AYAKA HARRIS [address] [address] [employer] [place], [place] [id number] * eGFR (01/27/2025 4:05 AM CDT) eGFR [...] ORDERABLES Final Res ult Performing Organization Address [facility]/ZIP Co de Phone Number AYAKA HARRIS [address] Department [employer] [place], [place] [phone] * (ABNORMAL) Differential, auto (01/27/2025 4:05 AM CDT) Neutrophil abs 12.90(H) 1.50 - 6.50 K/cumm Imm gran abs 0.10 0.00 - 0.10 K/cumm [facility] Lymphocyte abs 0.80 0.80 - 3.30 K/cumm [facility] Monocyte abs 1.45(H) 0.20 - 0.80 K/cumm [facility] Eosinophil abs 0.00 0.00 - 0.50 K/cumm [facility] Basophil abs 0.03 0.00 - 0.10 K/cumm [facility] 84.4 % [facility] Comment: Interpretive Data Percent cell count reference ranges are not reported, since discordance with absolute values may lead to misinterpretation of CBC data. Current Interpretive Data was last revised on 2018. Imm gran pct 0.7 % [facility] Comment: Interpretive Data Percent cell count reference ranges are not reported, since discordance with absolute values may lead to misinterpretation of CBC data. Current Interpretive Data was last revised on 2018. Lymphocyte pct 5.2 % [facility] Comment: Interpretive Data Percent cell count reference ranges are not reported, since discordance with absolute values may lead to misinterpretation of CBC data. Current Interpretive Data was last revised on 2018. Monocyte pct 9.5 % [facility] Comment: Interpretive Data Percent cell count reference ranges are not reported, since discordance with absolute values may lead to misinterpretation of CBC data. Current Interpretive Data was last revised on 2018. Eosinophil pct 0.0 % [facility] Comment: Interpretive Data Percent cell count reference ranges are not reported, since discordance with absolute values may lead to misinterpretation of CBC data. Current Interpretive Data was last revised on 2018. Basophil pct 0.2 % [facility] Comment: Interpretive Data Percent cell count reference ranges are not reported, since discordance with absolute values may lead to misinterpretation of CBC data. Current Interpretive Data was last revised on 2018. Blood 01/27/2025 4:05 AM CDT 01/27/2025 4:10 AM CDT Kasia Maldonado MD LAB BLOOD ORDERABLES Final Res ult Performing Organization Address [facility] Co de Phone Number AYAKA HARRIS [address] [address] [facility] [place] [address] * (ABNORMAL) CBC with auto differential (01/27/2025 4:05 AM CDT) WBC 15.28(H) 3.80 - 9.90 K/cumm Hgb 9.2(L) 13.0 - 17.5 g/dL [facility] Hct 27.6(L) 38.9 - 50.3 % [facility] Plt 139(L) 150 - 400 K/cumm [facility] MPV 9.6 9.1 - 12.3 fL [facility] RBC 2.88(L) 4.30 - 5.80 M/cumm [facility] MCV 95.8 81.3 - 96.4 fL [facility] CH MCH 31.9 27.1 - 33.3 pg [facility] MCHC 33.3 32.3 - 35.7 g/dL [facility] RDW CV 13.7 11.1 - 14.9 % [facility] RDW SD 48.3(H) 35.7 - 48.1 fL [facility] NRBC abs 0.00 0.00 - 0.01 K/cumm [facility] CH Blood 01/27/2025 4:05 AM CDT 01/27/2025 4:10 AM CDT Kasia Maldonado MD LAB BLOOD ORDERABLES Final Res ult Performing Organization Address City/[facility]/ZIP Co de Phone Number AYAKA HARRIS [phone] Department of [employer] [address] [place], [place] [id number] * (ABNORMAL) Magnesium (01/27/2025 4:05 AM CDT) Magnesium 2.8(H) 1.4 - 2.5 mg/dL Blood 01/27/2025 4:05 AM CDT 01/27/2025 4:10 AM CDT Kasia Maldonado MD LAB BLOOD ORDERABLES Final Res ult AYAKA HARRIS [id number] [place] [address] * (ABNORMAL) Basic metabolic panel (01/27/2025 4:05 AM CDT) Sodium 140 135 - 145 mmol/L Potassium, pl 4.0 3.3 - 4.9 mmol/L [facility] Chloride 108 97 - 110 mmol/L [facility] CO2 22 22 - 32 mmol/L [facility] Anion gap 10 2 - 15 mmol/L [facility] BUN 19 6 - 25 mg/dL [facility] Creatinine 0.75(L) 0.80 - 1.30 mg/dL [facility] Glucose 114 70 - 199 mg/dL [facility] Comment: Interpretive Data Fasting glucose >/= [...] 2022. Calcium 8.2(L) 8.5 - 10.3 mg/dL [facility] Blood 01/27/2025 4:05 AM CDT 01/27/2025 4:10 AM CDT Kasia Maldonado MD LAB BLOOD ORDERABLES Final Res ult Performing Organization Address City/[facility]/ZIP Co de Phone Number AYAKA HARRIS [phone] [address] [place] [address] * POCT glucose (01/27/2025 4:03 AM CDT) Glucose, POC 122 70 - 199 mg/dL POC Performer [id number] [facility] Blood 01/27/2025 4:03 AM CDT 01/27/2025 4:03 AM CDT Kasia Maldonado MD LAB POCT ORDERABLES - DEVICE F inal Result Performing Organization Address [facility] Co de Phone Number AYAKA HARRIS [phone] [address] [facility] [place] [address] * POCT glucose (01/27/2025 3:02 AM CDT) Glucose, POC 112 70 - 199 mg/dL POC Performer [id number] [facility] Blood 01/27/2025 3:02 AM CDT 01/27/2025 3:02 AM CDT Kasia Maldonado MD LAB POCT ORDERABLES - DEVICE F inal Result Performing Organization Address [facility] de Phone Number AYAKA HARRIS [phone] [address] [facility] [place] [address] * POCT glucose (01/27/2025 1:57 AM CDT) Glucose, POC 127 70 - 199 mg/dL POC Performer [id number] [facility] Blood 01/27/2025 1:57 AM CDT 01/27/2025 1:57 AM CDT Kasia Maldonado MD LAB POCT ORDERABLES - DEVICE F inal Result Performing Organization Address [facility] Co de Phone Number AYAKA HARRIS [phone] [address] [facility] [place] [address] * POCT glucose (01/27/2025 12:50 AM CDT) Glucose, POC 146 70 - 199 mg/dL POC Performer [id number] [facility] Blood 01/27/2025 12:5 0 AM CDT 01/27/2025 12:50 AM CDT Kasia Maldonado MD LAB POCT ORDERABLES - DEVICE F inal Result Performing Organization Address [facility] Co de Phone Number WOODROWBENITA HARRIS [phone] [address] [facility] [place] [address] * Potassium, whole blood (01/27/2025 12:44 AM [...] ORDERABLES Final Res ult Performing Organization Address [facility] Co de Phone Number WOODROWBENITA HARRIS [phone] [address] [place] [address] * (ABNORMAL) Hemoglobin and hematocrit (01/27/2025 12:44 AM CDT) Pathologist [facility] Hgb 9.1(L) 13.0 - 17.5 g/dL Hct 27.3(L) 38.9 - 50.3 % [facility] Blood 01/27/2025 12:4 4 AM CDT 01/27/2025 12:54 AM CDT Kasia Maldonado MD LAB BLOOD ORDERABLES Final Res ult Performing Organization Address City/[facility] Co de Phone Number WOODROWBENITA HARRIS [phone] [address] [facility] [place] [address] * (ABNORMAL) Blood gas, arterial (01/27/2025 12:44 AM CDT) pH, Art 7.36 7.35 - 7.45 PCO2, Arterial 40 35 - 45 mmHg [facility] PO2, Arterial 93 83 - 108 mmHg [facility] HCO3 Art (Calculated) 22 20 - 30 mmol/L [facility] BE, art -3 mmol/L [facility] Comment: Interpretive Data No Reference Range Established Current Interpretive Data was last revised on 2017 O2 Sat Art (Measured) 96(H) 90 - 95 % [facility] Blood 01/27/2025 12:4 4 AM CDT 01/27/2025 12:53 AM CDT us Kasia Maldonado MD LAB BLOOD ORDERABLES Final Res ult AYAKA HARRIS [address] [address] Department [place] [address] from Last 3 Months Insurance [facility] MEDIC[facility] FEDERAL Advance Directives For more information, please contact: [phone] * Full Code (Latest Code Status on File) Date Activated Date Inactivated Comments 01/26/2025 4:03 PM 01/31/2025 9:06 PM Care Teams Chip Person Relationship Specialty Start Date End Date Shabbir White MD [address] [place] [address] PCP - General 02/07/17 Kasia Maldonado MD [address] [place] [address] Surgeon Cardiothoracic Surgery 01/31/25 Sindhu Patricio MD [address] [id number] Consulting Physician Cardiology 01/31/25 Miscellaneous, Not In File 01/31/25
--- OUTSIDE RECORDS SUMMARY | 2025-04-28 11:52 | XMS_ITS | Referral Summary ---
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 Machine Tool Operator Name Role Phone Shabbir White MD Primary Care Prov ider Kasia Maldonado MD Unavailable [phone] Sindhu Patricio MD Unavailable [phone] Miscellaneous, Not In File Unavailable Unava ilable Encounters Date Type Department Care Team Description 04/27/2025 Telephone [facility] Cardiology [address] [facility] [address] [place] [address] Sindhu Patricio MD 04/16/2025 Telephone [facility] Ophthalmology [address] [place] [address] 1st [place] [id number] Mike Xavier MD 04/13/2025 Orders Only [facility] [address] [place] [address] Eufemia Shen MD 04/06/2025 Results Follow-Up [facility] Cardiology [address] [facility] [address], [place] [phone] Sindhu Patricio MD US Arterial Doppler Lower Extremity Bilateral 04/05/2025 1:00 PM CDT Ancillary Procedure [facility] Vascular and Vein Surgery at [address] [place] [address] Claudication 04/01/2025 Telephone [facility] Vascular and Vein Surgery at [address] [place] [address] Mehul Afia 03/31/2025 3:00 PM CDT Office Visit [facility] Cardiology at [address] [place] [phone] Sindhu Patricio MD Coronary artery disease of [place] artery of [place] heart with stable angina pectoris (Primary Dx); Essential hypertension; History of atrial fibrillation; History of PSVT (paroxysmal supraventricular tachycardia); Hyperlipidemia LDL goal <70; Claudication 03/22/2025 Telephone [facility] Cardiology [address] [place] [address] [address] [place] [address] Sindhu Patricio MD 03/16/2025 1:44 PM CDT - 03/16/2025 11:59 PM CDT Hospital Encounter [facility] [address] [place] [address] Temporal pain Discharge Disposition: Discharge to home or self care 03/03/2025 2:00 PM CDT Office Visit [facility] Surgery [address] [facility] [address] [place] [address] Kasia Maldonado MD S/P CABG x 4 (Primary Dx) 02/28/2025 Orders Only [facility] Health Information Management [address] [place] [address] Scanning, Provider 02/25/2025 Telephone [facility] Cardiology [address] [facility] [address] [place] [address] Meghan Camejo NP 02/25/2025 2:30 PM CDT Office Visit [facility] Cardiology [address] [place] [address] [address] [place] [address] Meghan Camejo NP Coronary artery disease involving [place] coronary artery of [place] heart without angina pectoris (Primary Dx); Hx of CABG; Hospital discharge follow-up 02/24/2025 Telephone [facility] Cardiology [address] [facility] [address] [place] [address] Sindhu Patricio MD 02/17/2025 Documentation [facility] Surgery [address] [place] [address] [address] [place] [phone] Jordan Escalera NP 02/16/2025 1:30 PM CDT Office Visit [facility] Ophthalmology [address] [facility] 2nd Floor [address] [place] [address] Sai Lo, OD 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 (Primary Dx); Corneal scar 02/16/2025 1:00 PM CDT Imaging Exam [facility] Ophthalmology [address] [place] [address] 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 02/14/2025 Orders Only [facility] Ophthalmology [address] [place] [address] Sai Lo, OD 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 (Primary Dx) 02/10/2025 Orders Only [facility] Surgery [address] [place] [address] [address] [place] [address] Jordan Escalera NP 02/10/2025 10:05 AM CDT [address] [phone] Coronary artery disease involving [place] coronary artery of [place] heart without angina pectoris 02/10/2025 9:30 AM CDT Office Visit [facility] Surgery [address] [place] [address] [address] [place] [address] oJrdan Escalera NP Coronary artery disease of [place] heart with stable angina pectoris, unspecified vessel or lesion type (Primary Dx) 02/07/2025 Orders Only [facility] Surgery [address] [place] [address] [address] [place] [address] Jordan Escalera NP Coronary artery disease involving [place] coronary artery of [place] heart without angina pectoris (Primary Dx) 02/07/2025 Documentation [facility] Surgery [address] [place] [address] [address] [place] [address] Jordan Escalera NP 02/04/2025 1:51 PM CDT - 02/04/2025 11:59 PM CDT Hospital Encounter [facility] Diagnostic Imaging [address] [place] [address] Coronary artery disease involving [place] coronary artery of [place] heart without angina pectoris Discharge Disposition: Discharge to home or self care 02/04/2025 Orders Only [facility] Surgery [address] [place] [address] [place] [address] Jordan Escalera NP 02/04/2025 Orders Only [facility] Surgery [address] [place] [address] [place] [address] Jordan Escalera NP Coronary artery disease involving [place] coronary artery of [place] heart without angina pectoris (Primary Dx) 02/04/2025 10:25 AM CDT Lab [facility] Lab [address] [place] [address] 02/04/2025 10:10 AM CDT Lab [facility] Lab [address] [place] [address] Burning with urination 02/04/2025 Orders Only [facility] Surgery [address] [place] [address] Jordan Escalera NP Burning with urination (Primary Dx) 02/03/2025 Documentation [facility] Surgery [address] [place] [address] Rabia Becerra NP 02/02/2025 [facility] Post Discharge Follow up phone call [address] [address] Evangelina Khan 01/31/2025 Telephone [facility] Cardiology [address] [place] [address] [address], [place] [address] Alaina Henderson NP 01/26/2025 7:23 AM CDT - 01/31/2025 4:56 PM CDT Hospital Encounter [address] [address] Kasia Maldonado MD Coronary artery disease of bypass graft of [place] heart with stable angina pectoris (Primary Dx); Coronary artery disease of [place] artery of [place] heart with stable angina pectoris; Coronary artery disease of [place] heart with stable angina pectoris, unspecified vessel or lesion type Discharge Disposition: Discharge to home, home health skilled care from Last 3 Months Allergies No known [...] now. Assessment & Plan (09/09/2023 1:08 PM JOCKEY AGENT): 2/2 RK OU, patient having issues with I/R and having other health issues Would like to return lenses and try again at another time. Will return [place] lenses and RTC for refit in future [...] next exam OS RTC for dispense reF# [id number] Assessment & Plan (05/23/2023 4:00 PM CDT): 2/2 RK OU, possible OHx of amblyopia OD; patient states that OD (even prior to RK) has never seen as well as OS Educated patient on options, corneal GP (would need reverse kate design) vs scleral Patient concerned about dryness and comfort, will go ahead with scleral fit today Today with [place] 16.0, excellent comfort OU: OD: 450um central, minimal limbal. Slighlt toe impingement 360, better periphery with flat lens OS: 450um central, minimal limbal. Slight toe impitngement 360, better periphery with flat and better vision with FSE2 Flat periphery / FSE2 / aim for 280um central clearance with adjustments today BCVA 20/30- OD; 20/25-- OS RTC for dispense Ref# [id number] Assessment & Plan (12/11/2022 4:19 PM JOCKEY AGENT): Patient is s/p 1 cut RK OU and has to change between several pairs of glasses through the day due to fluctuations in refractive error. Pt has been told about scleral lenses in the past and is interested in trying them. Will consult with Dr. Rivera and schedule and evaluation. Retinal drusen of both eyes 06/05/2022 Assessment & Plan (12/11/2022 4:19 PM JOCKEY AGENT): Mild and stable. F/u annually. Assessment & [...] CPM. Assessment & Plan (11/28/2021 1:23 PM JOCKEY AGENT): Continue ATs prn. Assessment & Plan (05/30/2021 2:28 PM CDT): PF ATs prn. Assessment & Plan (01/31/2021 1:46 PM CDT): Well controlled with artificial tears. CPM Assessment & Plan (12/13/2020 1:16 PM JOCKEY AGENT): Pt feels his symptoms are well controlled [...] 10/26/2019 Assessment & Plan (10/29/2019 7:17 PM JOCKEY AGENT): Chest pain is atypical in that it occurs only sometimes in his in various locations of his chest. I am suspicious that it is musculoskeletal, but would recommend a stress test. As his EKG is normal, imaging is not required. Biceps tendinitis of right upper extremity 11/25 Overview (11/25/2018): Added automatically from request for surgery [id number] Incomplete tear of right rotator cuff 11/25/2018 Overview (11/25/2018): Added automatically from request for surgery [id number] Open angle with borderline f indings and [...] ck. Assessment & Plan (12/11/2022 4:18 PM JOCKEY AGENT): Mild OAG vs suspect. Started on tx [...] ck. Assessment & Plan (11/28/2021 1:23 PM JOCKEY AGENT): Mild OAG vs suspect. IOP well controlled [...] irritation. Assessment & Plan (12/13/2020 1:21 PM JOCKEY AGENT): IOP stable on 1 class. [place] is [...] OU Assessment & Plan (12/11/2022 4:19 PM JOCKEY AGENT): S/p RK OU Assessment & Plan (06/05/2022 3:57 PM CDT): S/p 16 incision RK. Stable. Observe. Assessment & Plan (11/28/2021 1:23 PM JOCKEY AGENT): S/p 16 incision RK OU Assessment & [...] 1 970 - 1986 Smokeless Tobacco: Never Tobacco Cessation:Counseling Given: Not Answered Alcohol Use Standard Drinks/Week Comments Yes 1 (1 standard drink = 0.6 oz pur e alcohol) nightly [facility] Utilities Answer Date Recorded In the past 12 months has [employer], gas, oil, or water company threatened [...] often do you attend chur ch or nondenominational services? Never 01/31/2025 Do you belong to [...] any time in the past 12 m [facility], were you homeless or living in a intermediate (including now)? No 01/31/2025 Personal Safety Answer Date Recorded Have you ever been in or are you currently in a harmful physical or emotional relationship or is someone making you feel afraid or unsafe? Denies 01/26/2025 Sex and Gender Information Value Date Recorded Sex Assigned at Not on file Legal Sex Male 2:36 AM JOCKEY AGENT Gender Identity Not on file Sexual Orientation [...] 03/31/2025 2:53 PM CDT Plan of Treatment Not on file Medical Devices Implanted Type Area Compliance Clerk Device Identifier Shelf Expiration Date Model / Serial / Lot [employer] Plate Bone Low Profile 4 Hole Box Sternum Ti 115.103.04 - [id number] Implanted:Qty: 1 on 01/26/2025 by Kasia Maldonado MD at [facility] Plate N/A: Sternum [employer] 115.103.04 / / [employer] Plate Bone Low Profile 6 Hole H Shape Sternum Ti 115.102.06 - [id number] Implanted:Qty: 1 on 01/26/2025 by Kasia Maldonado MD at [facility] Plate N/A: Sternum [employer] 115.102.06 / / [employer] Plate Bone Low Profile 6 Hole O Shape Sternum Ti 115.104.06 - [id number] Implanted:Qty: 1 on 01/26/2025 by Kasia Maldonado MD at [facility] Plate N/A: Sternum [employer] 115.104.06 / / [employer] Screw Bone Slf Drl Full Thread Locking 3.5x18mm Ti 100.035.18 - [id number] Implanted:Qty: 16 on 01/26/2025 by Kasia Maldonado MD at [facility] Screw N/A: Sternum [employer] 100.035.18 / / Procedures Procedure Name Priority Date/Time Associated Diagnosis Comments AST Routine 04/15/2025 10:06 AM CDT Coronary artery disease of [place] artery of [place] heart with stable angina pectoris Hyperlipidemia LDL goal <70 LIPID PANEL Routine 04/15/2025 10:06 AM CDT Coronary artery disease of [place] artery of [place] heart with stable angina pectoris Hyperlipidemia LDL [...] 10:33 AM CDT Coronary artery disease involving [place] coronary artery of [place] heart without angina pectoris CBC WITHOUT DIFFERENTIAL Routine 02/10/2025 10:33 AM CDT Coronary artery disease involving [place] coronary artery of [place] heart without angina pectoris COMPREHENSIVE METABOLIC PANEL Routine 02/10/2025 10:33 AM CDT Coronary artery disease involving [place] coronary artery of [place] heart without angina pectoris XR CHEST PA LATERAL 2 VIEWS Schedule Routine, Read Routine (OP Routine) 02/04/2025 1:58 PM CDT Coronary artery disease involving [place] coronary artery of [place] heart without angina pectoris EGFR Routine 02/04/2025 [...] 4:27 PM CDT Coronary artery disease of [place] artery of [place] heart with stable angina pectoris POCT GLUCOSE [...] 5:45 PM CDT Coronary artery disease of [place] artery of [place] heart with stable angina pectoris POCT GLUCOSE [...] 04/16/2025 4:09 AM CDT FASTING:YES FASTING: YES Sindhu Patricio MD LAB BLOOD ORDERABLES Gale hopson Result Performing Organization Address [facility]/ZIP Co de Phone Number OMI [facility] [address] [address] [place] [phone] * Lipid panel (04/15/2025 10:06 AM CDT) [facility] Cholesterol 165 <200 mg/dL [facility] [...] LDL-C. Fran PEMBERTON et al. ALVA. 2013;310(19): 2456-5006 (http://education.WhiteF[employer] Computing/faq/IAN109) Chol/HDL ratio 2.5 <5.0 (calc) [facility] [...] 04/16/2025 4:09 AM CDT FASTING:YES FASTING: YES Sindhu Patricio MD LAB BLOOD ORDERABLES Gale l Result Performing Organization Address [facility]/ZIP Co de Phone Number [facility] [place] [address] [place] [phone] * Surgical pathology (04/13/2025 11:10 AM CDT) Skin, shave biopsy 04/13/2025 11:10 AM CDT 04/14/2025 5:35 AM CDT Narrative 04/15/2025 11:52 AM CDT EPIC results best viewed via link to PDF [facility] [address] [place] [address], [address], [place] [address] [email or web address] Note to Patients: This report may contain [...] 04/15/2025 Submitting Physician Information: Eufemia Mcginnis MD [facility] [place] [address], DERMATOPATHOLOGY REPORT RESULTS DIAGNOSIS: SKIN, LEFT THENAR [...] sxt/dxv ICD-9 A; ZSD.1474 Clerical Data A; 75208 The characteristics of special, immunohistochemical, and immunofluorescence stains and in-situ hybridization tests performed by the [facility] were deemed acceptable in ongoing quality control industrial engineer measures and in compliance with regulations drawn from the Clinical Laboratory Improvement Act zk4605 (CLIA '88). Control reactions for all stains performed were deemed adequate and appropriate by a pathologist prior to evaluation of patient tissue. Some diagnoses were rendered with the assistance of laboratory-developed tests utilizing analyte-specific reagents; the performance characteristic of these tests were determined by [facility] and are not cleared or approved by the [place] Food an Drug administration. Laboratory developed test may only be performed in a facility that is certified by the [facility] as a high-complexity laboratory under CLIA '88. These tests are used for clinical purposes and are not investigational. us Eufemia Wan MD LAB PATHOLOGY ORDERABLES Final Result * US Arterial Doppler Lower Extremity Bilateral (04/05/2025 1:23 PM CDT) Anatomical Region Laterality Modality Vascular Bilateral Ultrasound 04/05/2025 12:5 2 PM CDT Narrative 04/06/2025 11:15 AM CDT Vascular & Vein Surgery [facility] [place] [address] Lower Extremity Arterial Doppler Report Patient Name: OSEAS MORA A : 1950 Study Date: 04/05/2025 12:52:00 PM Gender: M Model Home Sales Greeter: Kenna Pires Jose Luis Location: [facility] Ref Provider: SINDHU PATRICIO Quality: Adequate Order Provider: SINDHU PATRICIO PROCEDURES: Arterial Report: Bilateral lower extremity arterial Doppler exam at rest. INDICATIONS: I73.9 Peripheral vascular disease, unspecified. HISTORY: HLD. CAD. Afib. Former smoker. COMPARISONS: No previous exams. MEASUREMENTS: Right Value Left Value Rt Brachial Pressure 150 mmHg Lt Brachial Pressure 149 mmHg Rt AREA LOSS PREVENTION MANAGER Pressure 166 mmHg Lt AREA LOSS PREVENTION MANAGER Pressure 155 mmHg Rt DPA Pressure 166 [...] CDT Procedure Note Pio Hernandez MD - 06/18/2025 Vascular & Vein Surgery [address] [place] [address] Lower Extremity Arterial Doppler Report Patient Name: OSEAS MORA A : 1950 Study Date: 04/05/2025 12:52:00 PM Gender: M Model Home Sales Greeter: Kenna Pires RVT Location: [facility] Ref Provider: SINDHU PATRICIO Quality: Adequate Order Provider: SINDHU PATRICIO PROCEDURES: Arterial Report: Bilateral lower extremity arterial Doppler exam at rest. INDICATIONS: I73.9 Peripheral vascular disease, unspecified. HISTORY: HLD. CAD. Afib. Former smoker. COMPARISONS: No previous exams. MEASUREMENTS: Right Value Left Value Rt Brachial Pressure 150 mmHg Lt Brachial Pressure 149 mmHg Rt AREA LOSS PREVENTION MANAGER Pressure 166 mmHg Lt AREA LOSS PREVENTION MANAGER Pressure 155 mmHg Rt DPA Pressure 166 [...] it. Electronically signed by: Serjio Henderson M.D. Unknown Referring MD IMG US PROCEDURES Final Res ult * SCAN - OTHER ORDERS (02/28/2025) us Provider Scanning Final Result * [place] Visual Field - OU - Both Eyes (02/16/2025 1:46 PM CDT) Pathologist [facility] Pattern Deviation OS 1.33 db CONTINUUM Pattern [...] Escalera NP LAB BLOOD ORDERABLES Final Result [facility] [address] [place] [address] * (ABNORMAL) CBC without differential (02/10/2025 10:33 AM CDT) WBC 13.51(H) 3.80 - 9.90 K/cumm Hgb 9.7(L) 13.0 - 17.5 g/dL [facility] CH Hct 30.4(L) 38.9 - 50.3 % CERNER Plt 689(H) 150 - 400 K/cumm CERNER MPV 8.9(L) 9.1 - 12.3 fL CERNER [...] NP LAB BLOOD ORDERABLES Final Result [facility] [address] [place] [address] * (ABNORMAL) Comprehensive metabolic panel (02/10/2025 10:33 AM CDT) Pathologist [facility] Sodium 133(L) 135 - 145 mmol/L Potassium, [...] CDT 02/10/2025 2:16 PM CDT us Jordan Ning Escalera RIGGER CHIEF LAB BLOOD ORDERABLES Final Result [facility] [address] [address] Department [place] [address] * X-ray chest 2 views (02/04/2025 1:58 [...] Hollis Gonzalez M.D. MJ: ANYA Report ID: [id number] Reading Location: [id number] Procedure Note Hollis Gonzalez MD - 02/05/2025 [...] Hollis Gonzalez M.D. MJ: ANYA Report ID: [id number] Reading Location: [place] [address] us Jordan Escalera RIGGER CHIEF IMG XR PROCEDURES Final Res ult * [...] was last reviewed 2021. Testing performed by: [address] [address] Blood 02/04/2025 10:3 3 AM CDT 02/04/2025 11:17 AM CDT us Jordan Escalera RIGGER CHIEF LAB BLOOD ORDERABLES Final Result [facility] [address] [facility] Department [place] [address] * (ABNORMAL) Differential, auto (02/04/2025 10:33 AM CDT) Neutrophil abs 10.94(H) 1.50 - 6.50 K/cumm Comment:Testing performed by : [address] [address] Imm gran abs 0.25(H) 0.00 - 0.10 K/cumm AYAKA Comment:Testing performed by : [address] [address] Lymphocyte abs 1.77 0.80 - 3.30 K/cumm AYAKA Comment:Testing performed by : [address] [address] Monocyte abs 1.58(H) 0.20 - 0.80 K/cumm AYAKA Comment:Testing performed by : [address] [address] Eosinophil abs 0.27 0.00 - 0.50 K/cumm AYAKA Comment:Testing performed by : [address] [address] Basophil abs 0.09 0.00 - 0.10 K/cumm AYAKA Comment:Testing performed by : [address] [address] Neutrophil pct 73.4 % [facility] Comment: Interpretive Data Percent cell count reference ranges are not reported, since discordance with absolute values may lead to misinterpretation of CBC data. Current Interpretive Data was last revised on 2018. Testing performed by: [address] [address] Imm gran pct 1.7 % [facility] Comment: Interpretive Data Percent cell count reference ranges are not reported, since discordance with absolute values may lead to misinterpretation of CBC data. Current Interpretive Data was last revised on 2018. Testing performed by: [address] [address] Lymphocyte pct 11.9 % [facility] Comment: Interpretive Data Percent cell count reference ranges are not reported, since discordance with absolute values may lead to misinterpretation of CBC data. Current Interpretive Data was last revised on 2018. Testing performed by: [address] [address] Monocyte pct 10.6 % [facility] Comment: Interpretive Data Percent cell count reference ranges are not reported, since discordance with absolute values may lead to misinterpretation of CBC data. Current Interpretive Data was last revised on 2018. Testing performed by: [address] [address] Eosinophil pct 1.8 % [facility] Comment: Interpretive Data Percent cell count reference ranges are not reported, since discordance with absolute values may lead to misinterpretation of CBC data. Current Interpretive Data was last revised on 2018. Testing performed by: [address] [address] Basophil pct 0.6 % [facility] Comment: Interpretive Data Percent cell count reference ranges are not reported, since discordance with absolute values may lead to misinterpretation of CBC data. Current Interpretive Data was last revised on 2018. Testing performed by: [address] [address] Blood 02/04/2025 10:3 3 AM CDT 02/04/2025 11:19 AM CDT us Jordan Escalera NP LAB BLOOD ORDERABLES Final Result [facility] [address] [facility] Department [place] [address] * Urinalysis reflex to microscopic and culture Urine, clean voided (02/04/2025 10:33 AM CDT) Color, ur Straw Yellow Comment:Testing performed by : [address] [address] Clarity, ur Clear Clear [facility]A Comment:Testing performed by : [address] [address] Specific gravity, ur 1.010 1.003 - 1.030 AY[facility]A Comment:Testing performed by : [address] [address] pH, urine 6.5 [facility] Comment: Interpretive Data U rine pH is affected by diet, medications, systemic acid-base disturbances, and renal tubular function. pH may affect urinary stone formation. For example, urine pH below 6.0 may help reduce the tendency for calcium phosphate stones and pH greater than 6.0 may reduce the tendency for uric acid stone formation. Source: [facility] [place] Current Interpretive Data was last revised on 2017 Testing performed by: [address] [address] Protein, ur ql Negative Negative AYAKA Comment:Testing performed by : [address] [address] Glucose, ur ql Negative Negative AYAKA Comment:Testing performed by : [address] [address] Ketones, ur Negative Negative AYAKA Comment:Testing performed by : [address] [address] Bilirubin, ur Negative Negative AYAKA Comment:Testing performed by : [address] [address] Blood, ur Negative Negative AYAKA Comment:Testing performed by : [address] [address] Urobilinogen, ur <2.0 <2.0 mg/dL [facility]A Comment:Testing performed by : [address] [address] Nitrite, ur Negative Negative AYAKA Comment:Testing performed by : [address] [place] [address] Leukocyte esterase, ur Negative Negative [facility]A Comment:Testing performed by : [address] [address] UA reflex comment Reflex conditions for microscopic UA and culture not met. AYAKA ALVAREZ Comment:Testing performed by : [address] [address] Urine, clean voided 02/04/2025 10:33 AM CDT 02/04/2025 11:37 AM CDT us Jordan Escalera NP LAB MICROBIOLOGY - GENERAL ORDERABLES Final Result AYAKA [address] [facility] Department [place] [address] * (ABNORMAL) CBC with auto differential (02/04/2025 10:33 AM CDT) WBC 14.90(H) 3.80 - 9.90 K/cumm Comment:Testing performed by : [address] [address] Hgb 8.9(L) 13.0 - 17.5 g/dL AYAKA Comment:Testing performed by : [address] [address] Hct 27.4(L) 38.9 - 50.3 % AYAKA ALVAREZ Comment:Testing performed by : [address] [address] Plt 483(H) 150 - 400 K/cumm AYAKA Comment:Testing performed by : [address] [address] MPV 9.4 9.1 - 12.3 fL AYAKA ALVAREZ Comment:Testing performed by : [address] [address] RBC 2.88(L) 4.30 - 5.80 M/cumm AYAKA ALVAREZ Comment:Testing performed by : [address] [address] MCV 95.1 81.3 - 96.4 fL AYAKA ALVAREZ Comment:Testing performed by : [address] [address] MCH 30.9 27.1 - 33.3 pg AYAKA ALVAREZ Comment:Testing performed by : [address] [address] MCHC 32.5 32.3 - 35.7 g/dL AYAKA ALVAREZ Comment:Testing performed by : [address] [address] RDW CV 14.1 11.1 - 14.9 % AYAKA ALVAREZ Comment:Testing performed by : [address] [address] RDW SD 48.6(H) 35.7 - 48.1 fL AYAKA AVLAREZ Comment:Testing performed by : [address] [address] NRBC abs 0.00 0.00 - 0.01 K/cumm AYAKA ALVAREZ Comment:Testing performed by : [address] [address] Blood 02/04/2025 10:3 3 AM CDT 02/04/2025 11:19 AM CDT Jordan Escalera NP LAB BLOOD ORDERABLES Final Result AYAKA ALVAREZ [facility] Department [place] [address] * (ABNORMAL) Comprehensive metabolic panel (02/04/2025 10:33 AM CDT) Sodium 130(L) 135 - 145 mmol/L Comment:Testing performed by : [address] [address] Potassium, pl 4.6 3.3 - 4.9 mmol/L AYAKA ALVAREZ Comment:Testing performed by : [address] [address] Chloride 96(L) 97 - 110 mmol/L AYAKA ALVAREZ Comment:Testing performed by : [address] [address] CO2 24 22 - 32 mmol/L AYAKA ALVAREZ Comment:Testing performed by : [address] [address] Anion gap 10 2 - 15 mmol/L AYAKA Comment:Testing performed by : [address] [address] BUN 29(H) 6 - 25 mg/dL AYAKA Comment:Testing performed by : [address] [address] Creatinine 1.02 0.80 - 1.30 mg/dL AYAKA Comment:Testing performed by : [address] [address] Glucose 204(H) 70 - 199 mg/dL AYAKA [...] was last revised 2022. Testing performed by: [address] [address] Calcium 9.0 8.5 - 10.3 mg/dL AYAKA Comment:Testing performed by : [address] [address] Bilirubin, total 0.4 0.1 - 1.2 mg/dL AYAKA Comment:Testing performed by : [address] [address] Protein, pl 6.8 6.5 - 8.5 g/dL AYAKA Comment:Testing performed by : [address] [address] Albumin 3.4(L) 3.5 - 5.0 g/dL AYAKA Comment:Testing performed by : [address] [address] Alk phos 78 40 - 130 Units/L AYAKA ALVAREZ Comment:Testing performed by : [facility], [address] [place] [address]., [address] ALT 23 7 - 55 Units/L AYAKA ALVAREZ Comment:Testing performed by : [address] [address] AST 30 10 - 50 Units/L AYAKA Comment:Testing performed by : [facility], [address] [place] [address]., [address] Blood 02/04/2025 10:3 3 AM CDT 02/04/2025 11:17 AM CDT us Jordan Escalera NP LAB BLOOD ORDERABLES Final Result Performing Organization Address City/State/[facility] Co de Phone Number AYAKA [address] [facility] Department [place] [address] * eGFR (01/31/2025 6:15 AM CDT) eGFR [...] 6:15 AM CDT 01/31/2025 6:50 AM CDT us Kasia Maldonado MD LAB BLOOD ORDERABLES Final Res ult AYAKA [address] [address] [place] [address] * (ABNORMAL) aPTT (01/31/2025 6:15 AM CDT) aPTT 27(L) 28 - 38 sec Comment: Interpretive Data Heparin therapeutic range: 66.0 - 100.0 seconds. Range based on correlation with therapeutic heparin activity range of 0.3 - 0.7 Units/mL. Current interpretive data was last revised on 2023. Blood 01/31/2025 6:15 AM CDT 01/31/2025 6:40 AM CDT Rabia Becerra RIGGER CHIEF LAB BLOOD ORDERABLES Gale l Result Performing Organization Address [facility] de Phone Number AYAKA [address] [facility] [place] [address] * Protime-INR (01/31/2025 6:15 AM CDT) PT [...] CDT 01/31/2025 6:40 AM CDT Rabia Becerra RIGGER [employer]IEF LAB BLOOD ORDERABLES Gale l Result Performing Organization Address [facility] Co de Phone Number AYAKA [address] [facility] [place] [address] * (ABNORMAL) CBC without differential (01/31/2025 6:15 AM CDT) WBC 10.85(H) 3.80 - 9.90 K/cumm Hgb 8.4(L) 13.0 - 17.5 g/dL [facility] Hct 25.2(L) 38.9 - 50.3 % [facility] Plt 222 150 - 400 K/cumm [facility] MPV 9.5 9.1 - 12.3 fL [facility] RBC 2.65(L) 4.30 - 5.80 M/cumm [facility] MCV 95.1 81.3 - 96.4 fL [facility] MCH 31.7 27.1 - 33.3 pg [facility] MCHC 33.3 32.3 - 35.7 g/dL [facility] RDW CV 13.8 11.1 - 14.9 % [facility] RDW SD 48.1 35.7 - 48.1 fL [facility] NRBC abs 0.00 0.00 - 0.01 K/cumm [facility] Blood 01/31/2025 6:15 AM CDT 01/31/2025 6:40 AM CDT us Kasia Maldonado MD LAB BLOOD ORDERABLES Final Res ult [facility] [address] [address] [place] [address] * (ABNORMAL) Basic metabolic panel (01/31/2025 6:15 AM CDT) Sodium 133(L) 135 - 145 mmol/L Potassium, pl 4.1 3.3 - 4.9 mmol/L [facility] Chloride 98 97 - 110 mmol/L [facility] CO2 27 22 - 32 mmol/L [facility] Anion gap 8 2 - 15 mmol/L [facility] BUN 25 6 - 25 mg/dL [facility] Creatinine 0.86 0.80 - 1.30 mg/dL [facility] Glucose 103 70 - 199 mg/dL [facility] Comment: Interpretive Data Fasting glucose >/= [...] BLOOD ORDERABLES Final Res ult AYAKA HARRIS [address] [address] [place] [address] * XR Chest 1 View - Portable [...] active infiltrate. The tip of the retracted [place] catheter is in the distal superior vena cava. Procedure Note Matthew More MD - 01/31/2025 EXAMINATION: XR CHEST 1 VIEW HISTORY: The patient is a 74-year-old male who has had cardiac surgery. Comparison made with the previous study dated 01/30/2025. TECHNIQUE: AP portable view of the chest. FINDINGS: Cardiomegaly with aortic atherosclerosis. No failure. No active infiltrate. The tip of the retracted [place]-K[place] catheter is in the distal superior vena [...] infiltrate. The distal tip of a retracted [place]-Karis catheter is in the distal superior vena cava. Procedure Note Matthew More MD - 01/30/2025 EXAMINATION: XR CHEST 1 VIEW HISTORY: The patient is a 74-year-old male who has had cardiac surgery. Comparison made with the previous study dated 01/29/2025 TECHNIQUE: AP portable view of the chest. FINDINGS: Cardiomegaly with aortic atherosclerosis. No failure. No active infiltrate. The distal tip of a retracted [place]-Karis catheter is in the distal superior vena cava. IMPRESSION: No failure. Electronically signed by: Matthew More M.D. Kasia Maldonado MD [facility] XR PROCEDURES Final Result * eGFR (01/30/2025 [...] MD LAB BLOOD ORDERABLES Final Res ult [facility] [address] [address] [place] [address] * (ABNORMAL) CBC without differential (01/30/2025 5:00 AM CDT) WBC 12.79(H) 3.80 - 9.90 K/cumm Hgb 8.6(L) 13.0 - 17.5 g/dL [facility] Hct 26.1(L) 38.9 - 50.3 % [facility] Plt 192 150 - 400 K/cumm [facility] MPV 9.7 9.1 - 12.3 fL [facility] RBC 2.73(L) 4.30 - 5.80 M/cumm [facility] MCV 95.6 81.3 - 96.4 fL [facility] MCH 31.5 27.1 - 33.3 pg [facility] MCHC 33.0 32.3 - 35.7 g/dL [facility] CH RDW CV 13.9 11.1 - 14.9 % [facility] RDW SD 48.7(H) 35.7 - 48.1 fL [facility] NRBC abs 0.00 0.00 - 0.01 K/cumm [facility] Blood 01/30/2025 5:00 AM CDT 01/30/2025 5:33 AM CDT Kasia Maldonado MD LAB BLOOD ORDERABLES Final Res ult Performing Organization Address [facility] Co de Phone Number AYAKA HARRIS [address] [address] [place] [address] * (ABNORMAL) Basic metabolic panel (01/30/2025 5:00 AM CDT) Pathologist [facility] Sodium 132(L) 135 - 145 mmol/L Potassium, pl 4.2 3.3 - 4.9 mmol/L [facility] Chloride 98 97 - 110 mmol/L [facility] CO2 26 22 - 32 mmol/L [facility] Anion gap 8 2 - 15 mmol/L [facility] BUN 30(H) 6 - 25 mg/dL [facility] Creatinine 0.85 0.80 - 1.30 mg/dL [facility] Glucose 113 70 - 199 mg/dL [facility] Comment: Interpretive Data Fasting glucose >/= [...] 2022. Calcium 8.4(L) 8.5 - 10.3 mg/dL [facility] Blood 01/30/2025 5:00 AM CDT 01/30/2025 5:33 AM CDT Kasia Maldonado MD LAB BLOOD ORDERABLES Final Res ult Performing Organization Address [facility] Co de Phone Number AYAKA HARRIS [address] [address] [place] [address] * POCT glucose (01/30/2025 3:39 AM CDT) Glucose, POC 132 70 - 199 mg/dL POC Performer [id number] [facility] Blood 01/30/2025 3:39 AM CDT 01/30/2025 3:39 AM CDT Kasia Maldonado MD LAB POCT ORDERABLES - DEVICE F inal Result Performing Organization Address [facility] de Phone Number AYAKA HARRIS [address] [facility] [place] [address] * POCT glucose (01/29/2025 9:27 PM CDT) Glucose, POC 139 70 - 199 mg/dL POC Performer [id number] [facility] Blood 01/29/2025 9:27 PM CDT 01/29/2025 9:27 PM CDT Kasia Maldonado MD LAB POCT ORDERABLES - DEVICE F inal Result Performing Organization Address [facility] de Phone Number AYAKA HARRIS [address] [facility] [place] [address] * POCT glucose (01/29/2025 7:52 AM CDT) Glucose, POC 132 70 - 199 mg/dL POC Performer [id number] [facility] Blood 01/29/2025 7:52 AM CDT 01/29/2025 7:52 AM CDT Kasia Maldonado MD LAB POCT ORDERABLES - DEVICE F inal Result Performing Organization Address [facility] de Phone Number AYAKA HARRIS [address] [facility] [place] [address] * XR Chest 1 View - Portable [...] ORDERABLES Final Res ult Performing Organization Address [facility] Co de Phone Number AYAKA [address] [place] [address] * (ABNORMAL) CBC without differential (01/29/2025 3:08 AM CDT) WBC 15.72(H) 3.80 - 9.90 K/cumm Hgb 8.8(L) 13.0 - 17.5 g/dL [facility] Hct 26.6(L) 38.9 - 50.3 % [facility] CH Plt 155 150 - 400 K/cumm [facility] CH MPV 10.2 9.1 - 12.3 fL [facility] CH RBC 2.80(L) 4.30 - 5.80 M/cumm [facility] CH MCV 95.0 81.3 - 96.4 fL [facility] CH MCH 31.4 27.1 - 33.3 pg [facility] CH MCHC 33.1 32.3 - 35.7 g/dL [facility] CH RDW CV 14.0 11.1 - 14.9 % [facility] CH RDW SD 49.0(H) 35.7 - 48.1 fL [facility] CH NRBC abs 0.00 0.00 - 0.01 K/cumm [facility] Blood 01/29/2025 3:08 AM CDT 01/29/2025 4:52 AM CDT Kasia Maldonado MD LAB BLOOD ORDERABLES Final Res ult Performing Organization Address City/[facility]/ZIP Co de Phone Number AYAKA [address] [place] [address] * (ABNORMAL) Basic metabolic panel (01/29/2025 3:08 AM CDT) Sodium 138 135 - 145 mmol/L Potassium, pl 3.5 3.3 - 4.9 mmol/L [facility] Chloride 99 97 - 110 mmol/L [facility] CO2 27 22 - 32 mmol/L [facility] Anion gap 12 2 - 15 mmol/L [facility] BUN 28(H) 6 - 25 mg/dL [facility] Creatinine 0.90 0.80 - 1.30 mg/dL [facility] [...] 2022. Calcium 8.4(L) 8.5 - 10.3 mg/dL [facility] Blood 01/29/2025 3:08 AM CDT 01/29/2025 4:51 AM CDT Kasia Maldonado MD LAB BLOOD ORDERABLES Final Res ult Performing Organization Address [facility] Co de Phone Number AYAKA HARRIS [address] [place] [address] * POCT glucose (01/28/2025 9:15 PM CDT) [facility] Signature Glucose, POC 175 70 - 199 mg/dL POC Performer [id number] [facility] Blood 01/28/2025 9:15 PM CDT 01/28/2025 9:15 PM CDT Kasia Maldonado MD LAB POCT ORDERABLES - DEVICE F inal Result Performing Organization Address [facility] Co de Phone Number AYAKA HARRIS [address] [address] [place] [address] * ECG 12 lead (01/28/2025 5:33 PM CDT) 01/28/2025 5:33 PM CDT Narrative [facility] - 01/29/2025 6:50 AM CDT Vent Rate: 119 bpm RR Interval: 503 msec LA Interval: 0 msec QRS Duration: 93 msec QT Interval: 318 msec QTC Interval: 389 msec P-R-T [place]: 0 - -9 - 8 degrees IMPRESSION: ATRIAL FIBRILLATION WITH RAPID VENTRICULAR RESPONSE LOW QRS VOLTAGE IN PRECORDIAL LEADS ABNORMAL RHYTHM ECG Electronically Signed By: Dr. Rivas Lehman [facility] Kasia Maldonado MD ECG ORDERABLES Final Result Performing Organization Address [facility] Co de Phone Number [facility] * POCT glucose (01/28/2025 4:30 PM CDT) [facility] Glucose, POC 145 70 - 199 mg/dL POC Performer [id number] AYAKA Blood 01/28/2025 4:30 PM CDT 01/28/2025 4:30 PM CDT Kasia Maldonado MD LAB POCT ORDERABLES - DEVICE F inal Result Performing Organization Address [facility] Co de Phone Number [facility] [address] [address] [place] [address] * Critical Care (01/28/2025 4:27 PM CDT) [...] plan with the ICU team and other medical/telecommunications consultant staff, making frequent assessments and decisions [...] 145 70 - 199 mg/dL POC Performer [id number] [facility] Blood 01/28/2025 11:4 0 AM CDT 01/28/2025 11:40 AM CDT Kasia Maldonado MD LAB POCT ORDERABLES - DEVICE F inal Result Performing Organization Address [facility] Co de Phone Number AYAKA KIMBERLY [address] [place] [address] * POCT glucose (01/28/2025 6:50 AM CDT) Glucose, POC 105 70 - 199 mg/dL POC Performer [id number] [facility] Blood 01/28/2025 6:50 AM CDT 01/28/2025 6:50 AM CDT Kasia Maldonado MD LAB POCT ORDERABLES - DEVICE F inal Result Performing Organization Address [facility]/ZIP Co de Phone Number AYAKA [address] [place] [address] * POCT glucose (01/28/2025 5:44 AM CDT) Glucose, POC 117 70 - 199 mg/dL POC Performer [id number] AYAKA KIMBERLY Blood 01/28/2025 5:44 AM CDT 01/28/2025 5:44 AM CDT Kasia Maldonado MD LAB POCT ORDERABLES - DEVICE F inal Result AYAKA HARRIS [address] [address] [place] [address] * XR Chest 1 View - Portable [...] in place. The tip of a retracted [place]-Karis catheter is in the superior vena cava. [...] in place. The tip of a retracted [place]-Karis catheter is in the superior vena cava. Cardiomegaly with aortic atherosclerosis. No failure. Right basal subsegmental atelectasis with the remainder of the lungs being clear. IMPRESSION: Findings as described above. Electronically signed by: Matthew More M.D. Kasia Maldonado MD IMG XR PROCEDURES Final Result * Oxyhemoglobin, central venous (01/28/2025 4:37 AM CDT) Pathologist [facility] [place] Oxyhemoglobin, CV 56.1 % Comment: Interpretive Data No reference range established. Current interpretive data was last revised 2020. Blood 01/28/2025 4:37 AM CDT 01/28/2025 4:44 AM CDT Kasia Maldonado MD LAB BLOOD ORDERABLES Final Res ult Performing Organization Address [facility] Co de Phone Number AYAKA [address] [place] [address] * (ABNORMAL) Calcium, ionized, whole blood (01/28/2025 4:37 AM CDT) Pathologist [facility] Ca, ionized, bld 4.33(L) 4.50 - 5.10 mg/dL Blood 01/28/2025 4:37 AM CDT 01/28/2025 4:44 AM CDT Kasia Maldonado MD LAB BLOOD ORDERABLES Final Res ult Performing Organization Address [facility] Co de Phone Number AYAKA [address] [place] [address] * eGFR (01/28/2025 4:37 AM CDT) Pathologist [facility] eGFR >90 >=60 mL/min/1. 73 m2 Comment: [...] MD LAB BLOOD ORDERABLES Final Res ult [facility] [address] [address] [place] [address] * (ABNORMAL) CBC without differential (01/28/2025 4:37 AM CDT) WBC 17.78(H) 3.80 - 9.90 K/cumm Hgb 8.8(L) 13.0 - 17.5 g/dL [facility] Hct 26.6(L) 38.9 - 50.3 % [facility] Plt 126(L) 150 - 400 K/cumm [facility] MPV 9.8 9.1 - 12.3 fL [facility]NER RBC 2.81(L) 4.30 - 5.80 M/cumm [facility] MCV 94.7 81.3 - 96.4 fL [facility] MCH 31.3 27.1 - 33.3 pg [facility] MCHC 33.1 32.3 - 35.7 g/dL [facility] RDW CV 14.3 11.1 - 14.9 % [facility] CH RDW SD 49.4(H) 35.7 - 48.1 fL [facility] NRBC abs 0.00 0.00 - 0.01 K/cumm [facility] Blood 01/28/2025 4:37 AM CDT 01/28/2025 4:45 AM CDT Kasia Maldonado MD LAB BLOOD ORDERABLES Final Res ult Performing Organization Address City/[facility] Co de Phone Number AYAKA [address] [facility] [place] [address] * Magnesium (01/28/2025 4:37 AM CDT) Magnesium 2.1 1.4 - 2.5 mg/dL Blood 01/28/2025 4:37 AM CDT 01/28/2025 4:45 AM CDT Kasia Maldonado MD LAB BLOOD ORDERABLES Final Res ult Performing Organization Address [facility] de Phone Number AYAKA [address] [place] [address] * (ABNORMAL) Basic metabolic panel (01/28/2025 4:37 AM CDT) Sodium 136 135 - 145 mmol/L Potassium, pl 3.9 3.3 - 4.9 mmol/L [facility] Chloride 102 97 - 110 mmol/L [facility] CO2 23 22 - 32 mmol/L [facility] Anion gap 11 2 - 15 mmol/L [facility] BUN 22 6 - 25 mg/dL [facility] Creatinine 0.87 0.80 - 1.30 mg/dL [facility] Glucose 114 70 - 199 mg/dL [facility] Comment: Interpretive Data Fasting glucose >/= [...] ORDERABLES Final Res ult Performing Organization Address [facility] Co de Phone Number AYAKA HARRIS [address] [facility] [place] [address] * POCT glucose (01/28/2025 4:34 AM CDT) Glucose, POC 120 70 - 199 mg/dL POC Performer [id number] [facility] Blood 01/28/2025 4:34 AM CDT 01/28/2025 4:34 AM CDT Kasia Maldonado MD LAB POCT ORDERABLES - DEVICE F inal Result Performing Organization Address [facility] Co de Phone Number AYAKA HARRIS [address] [facility] [place] [address] * POCT glucose (01/28/2025 3:34 AM CDT) Glucose, POC 122 70 - 199 mg/dL POC Performer [id number] [facility] CH Blood 01/28/2025 3:34 AM CDT 01/28/2025 3:34 AM CDT Kasia Maldonado MD LAB POCT ORDERABLES - DEVICE F inal Result Performing Organization Address [facility] Co de Phone Number AYAKA HARRIS [address] [facility] [place] [address] * POCT glucose (01/28/2025 2:36 AM CDT) Glucose, POC 98 70 - 199 mg/dL POC Performer [id number] [facility] CH Blood 01/28/2025 2:36 AM CDT 01/28/2025 2:36 AM CDT Kasia Maldonado MD LAB POCT ORDERABLES - DEVICE F inal Result Performing Organization Address [facility]/ZIP Co de Phone Number AYAKA HARRIS [address] [facility] [place] [address] * POCT glucose (01/28/2025 1:23 AM CDT) Glucose, POC 81 70 - 199 mg/dL POC Performer [id number] [facility] Blood 01/28/2025 1:23 AM CDT 01/28/2025 1:23 AM CDT Kasia Maldonado MD LAB POCT ORDERABLES - DEVICE F inal Result Performing Organization Address [facility] Co de Phone Number AYAKA HARRIS [address] [facility] [place] [address] * POCT glucose (01/28/2025 12:15 AM CDT) Glucose, POC 103 70 - 199 mg/dL POC Performer [id number] [facility] CH Blood 01/28/2025 12:1 5 AM CDT 01/28/2025 12:15 AM CDT Kasia Maldonado MD LAB POCT ORDERABLES - DEVICE F inal Result Performing Organization Address [facility] Co de Phone Number AYAKA HARRIS [address] [facility] [place] [address] * POCT glucose (01/27/2025 11:22 PM CDT) Glucose, POC 121 70 - 199 mg/dL POC Performer [id number] [facility] CH Blood 01/27/2025 11:2 2 PM CDT 01/27/2025 11:22 PM CDT Kasia Maldonado MD LAB POCT ORDERABLES - DEVICE F inal Result Performing Organization Address [facility]/ZIP Co de Phone Number AYAKA HARRIS [address] [facility] [place] [address] * POCT glucose (01/27/2025 10:19 PM CDT) Glucose, POC 129 70 - 199 mg/dL POC Performer [id number] [facility] Blood 01/27/2025 10:1 9 PM CDT 01/27/2025 10:19 PM CDT Kasia Maldonado MD LAB POCT ORDERABLES - DEVICE F inal Result Performing Organization Address [facility] Co de Phone Number AYAKA HARRIS [address] [facility] [place] [address] * POCT glucose (01/27/2025 9:15 PM CDT) Glucose, POC 87 70 - 199 mg/dL POC Performer [id number] [facility] CH Blood 01/27/2025 9:15 PM CDT 01/27/2025 9:15 PM CDT Kasia Maldonado MD LAB POCT ORDERABLES - DEVICE F inal Result Performing Organization Address [facility] Co de Phone Number AYAKA HARRIS [address] [facility] [place] [address] * POCT glucose (01/27/2025 8:04 PM CDT) Glucose, POC 116 70 - 199 mg/dL POC Performer [id number] [facility] CH Blood 01/27/2025 8:04 PM CDT 01/27/2025 8:04 PM CDT Kasia Maldonado MD LAB POCT ORDERABLES - DEVICE F inal Result Performing Organization Address [facility]/ZIP Co de Phone Number AYAKA HARRIS [address] [facility] [place], [place] [address] * POCT glucose (01/27/2025 7:12 PM CDT) Glucose, POC 138 70 - 199 mg/dL POC Performer [id number] AYAKA Blood 01/27/2025 7:12 PM CDT 01/27/2025 7:12 PM CDT Kasia Maldonado MD LAB POCT ORDERABLES - DEVICE F inal Result Performing Organization Address [facility]/ZIP Co de Phone Number AYAKA [address] [place] [address] * eGFR (01/27/2025 6:53 PM CDT) Pathologist [facility] [place] eGFR 80 >=60 mL/min/1. 73 m2 Comment: [...] ORDERABLES Final Res ult Performing Organization Address [facility]/ZIP Co de Phone Number [facility] [address] Department [place], [place] [id number] * (ABNORMAL) CBC without differential (01/27/2025 6:53 PM CDT) Pathologist [facility] [place] WBC 17.49(H) 3.80 - 9.90 K/cumm Hgb [...] SD 48.1 35.7 - 48.1 fL CERNER NRBC abs 0.00 0.00 - 0.01 K/cumm [facility]NER [facility] Blood 01/27/2025 6:53 PM CDT 01/27/2025 6:59 PM CDT us Kasia Maldonado MD LAB BLOOD ORDERABLES Final Res ult [facility] [id number] Department of Laboratories [place], [place] [id number] * (ABNORMAL) Basic metabolic panel (01/27/2025 6:53 PM CDT) Pathologist [facility] [place] Sodium 138 135 - 145 mmol/L Potassium, pl 3.2(L) 3.3 - 4.9 mmol/L CERNER Chloride 103 97 - 110 mmol/L CERNER CO2 22 22 - 32 mmol/L CERNER CH Anion gap 13 2 - 15 mmol/L CERN[facility] CH BUN 21 6 - 25 mg/dL CERNER Creatinine 0.99 0.80 - 1.30 mg/dL CERNER Glucose 118 70 - 199 mg/dL [facility] Comment: Interpretive Data Fasting glucose >/= [...] 2022. Calcium 8.4(L) 8.5 - 10.3 mg/dL [facility]NER Blood 01/27/2025 6:53 PM CDT 01/27/2025 6:59 PM CDT Kasia Maldonado MD LAB BLOOD ORDERABLES Final Res ult Performing Organization Address [facility] Co de Phone Number AYAKA HARRIS [address] [place] [address] * POCT glucose (01/27/2025 6:04 PM CDT) [facility] Signature Glucose, POC 117 70 - 199 mg/dL POC Performer [id number] [facility] Blood 01/27/2025 6:04 PM CDT 01/27/2025 6:04 PM CDT Kasia Maldonado MD LAB POCT ORDERABLES - DEVICE F inal Result Performing Organization Address [facility] Co de Phone Number [place] [address] [place] [address] * Critical Care (01/27/2025 5:45 PM CDT) [...] plan with the ICU team and other medical/telecommunications consultant staff, making frequent assessments and decisions [...] spent time documenting in the medical record Result [facility] Hollis Phillips MD IN CLINIC/BEDSIDE ORDERABLES Final Result * POCT glucose (01/27/2025 4:05 PM CDT) Glucose, POC 166 70 - 199 mg/dL POC Performer [id number] AYAKA CH Blood 01/27/2025 4:05 PM CDT 01/27/2025 4:[address] [facility] Kasia Maldonado MD LAB POCT ORDERABLES - DEVICE F inal Result AYAKA [address] [place] [address] * POCT glucose (01/27/2025 2:02 PM CDT) Glucose, POC 101 70 - 199 mg/dL POC Performer [id number] AYAKA CH Blood 01/27/2025 2:02 PM CDT 01/27/2025 2:[address] [facility] Kasia Maldonado MD LAB POCT ORDERABLES - DEVICE F inal Result Performing Organization Address [facility] Co de Phone Number AYAKA HARRIS [address] [facility] [place] [address] * POCT glucose (01/27/2025 12:17 PM CDT) Glucose, POC 83 70 - 199 mg/dL POC Performer [id number] CERNER CH Blood 01/27/2025 12:1 7 PM CDT 01/27/2025 12:17 PM CDT Kasia Maldonado MD LAB POCT ORDERABLES - DEVICE F inal Result Performing Organization Address [facility] Co de Phone Number AYAKA HARRIS [address] [facility] [place] [address] * POCT glucose (01/27/2025 10:58 AM CDT) Glucose, POC 132 70 - 199 mg/dL POC Performer [id number] CERNER Blood 01/27/2025 10:5 8 AM CDT 01/27/2025 10:58 AM CDT Kasia Maldonado MD LAB POCT ORDERABLES - DEVICE F inal Result Performing Organization Address [facility] Co de Phone Number AYAKA HARRIS [address] [facility] [place] [address] * ECG 12 lead (01/27/2025 10:50 AM CDT) 01/27/2025 10:5 0 AM CDT Narrative [facility] - 01/27/2025 11:39 AM CDT Vent Rate: 99 bpm RR Interval: 602 msec LA Interval: 163 msec QRS Duration: 93 msec QT Interval: 356 msec QTC Interval: 412 msec P-R-T [place]: 53 - -7 - -1 degrees IMPRESSION: SINUS RHYTHM WITH artifact BORDERLINE ECG Electronically Signed By: Dr. Rivas Lehman [facility] Kasia Maldonado MD ECG ORDERABLES Final Result Performing Organization Address City/[facility]/ZIP Co de Phone Number [facility] * POCT glucose (01/27/2025 7:40 AM CDT) Glucose, POC 111 70 - 199 mg/dL POC Performer [id number] CERNER CH Blood 01/27/2025 7:40 AM CDT 01/27/2025 7:40 AM CDT Kasia Maldonado MD LAB POCT ORDERABLES - DEVICE F inal Result Performing Organization Address [facility] de Phone Number AYAKA HARRIS [address] [facility] [place] [address] * POCT glucose (01/27/2025 6:27 AM CDT) Glucose, POC 127 70 - 199 mg/dL POC Performer [id number] CERNER CH Blood 01/27/2025 6:27 AM CDT 01/27/2025 6:27 AM CDT Kasia Maldonado MD LAB POCT ORDERABLES - DEVICE F inal Result Performing Organization Address [facility] de Phone Number AYAKA HARRIS [address] [facility] [place] [address] * POCT glucose (01/27/2025 5:16 AM CDT) Glucose, POC 126 70 - 199 mg/dL POC Performer [id number] CERNER CH Blood 01/27/2025 5:16 AM CDT 01/27/2025 5:16 AM CDT Kasia Maldonado MD LAB POCT ORDERABLES - DEVICE F inal Result Performing Organization Address [facility] Co de Phone Number WO[place]ROWB[place]ITA HARRIS [address] [place] [address] * XR Chest 1 View - Portable [...] tubes. Left thoracostomy tube mediastinal drain and [place] catheter remain in place. Mild cardiomegaly is seen without failure. No pneumothorax. Procedure Note Sunil Luna MD - 01/27/2025 EXAMINATION: XR CHEST 1 VIEW DATE: 01/27/2025 4:10 AM HISTORY: Cardiac surgery FINDINGS:Compared with the study of the previous day, the patient is extubated with removal of endotracheal and nasogastric tubes. Left thoracostomy tube mediastinal drain and [place] catheter remain in place. Mild cardiomegaly is [...] BLOOD ORDERABLES Final Res ult AYAKA HARRIS [address] [place] [address] * eGFR (01/27/2025 4:05 AM CDT) eGFR [...] BLOOD ORDERABLES Final Res ult AYAKA HARRIS [address] [place] [address] * (ABNORMAL) Differential, auto (01/27/2025 4:05 AM CDT) Neutrophil abs 12.90(H) 1.50 - 6.50 K/cumm Imm gran abs 0.10 0.00 - 0.10 K/cumm CERNER CH Lymphocyte abs 0.80 0.80 - 3.30 K/cumm C[facility]ER Monocyte abs 1.45(H) 0.20 - 0.80 K/cumm C[facility]ER Eosinophil abs 0.00 0.00 - 0.50 K/cumm CERNER CH Basophil abs 0.03 0.00 - 0.10 K/cumm [facility] Neutrophil pct 84.4 % [facility] Comment: Interpretive Data Percent cell count reference ranges are not reported, since discordance with absolute values may lead to misinterpretation of CBC data. Current Interpretive Data was last revised on 2018. Imm gran pct 0.7 % AYAKA Comment: Interpretive Data Percent cell count reference ranges are not reported, since discordance with absolute values may lead to misinterpretation of CBC data. Current Interpretive Data was last revised on 2018. Lymphocyte pct 5.2 % [facility] Comment: Interpretive Data Percent cell count reference ranges are not reported, since discordance with absolute values may lead to misinterpretation of CBC data. Current Interpretive Data was last revised on 2018. Monocyte pct 9.5 % AYAKA Comment: Interpretive Data Percent cell count reference ranges are not reported, since discordance with absolute values may lead to misinterpretation of CBC data. Current Interpretive Data was last revised on 2018. Eosinophil pct 0.0 % AYAKA Comment: Interpretive Data Percent cell count reference ranges are not reported, since discordance with absolute values may lead to misinterpretation of CBC data. Current Interpretive Data was last revised on 2018. Basophil pct 0.2 % [facility] Comment: Interpretive Data Percent cell count reference ranges are not reported, since discordance with absolute values may lead to misinterpretation of CBC data. Current Interpretive Data was last revised on 2018. Blood 01/27/2025 4:05 AM CDT 01/27/2025 4:10 AM CDT us Kasia Maldonado MD LAB BLOOD ORDERABLES Final Res ult AYAKA [address] [place] [address] * (ABNORMAL) CBC with auto differential (01/27/2025 4:05 AM CDT) WBC 15.28(H) 3.80 - 9.90 K/cumm Hgb 9.2(L) 13.0 - 17.5 g/dL AYAKA Hct 27.6(L) 38.9 - 50.3 % [facility] CH Plt 139(L) 150 - 400 K/cumm CERNER CH MPV 9.6 9.1 - 12.3 fL CERNER RBC 2.88(L) 4.30 - 5.80 M/cumm CERNER CH MCV 95.8 81.3 - 96.4 fL [facility] MCH 31.9 27.1 - 33.3 pg CERNER MCHC 33.3 32.3 - 35.7 g/dL CERNER CH RDW CV 13.7 11.1 - 14.9 % CERNER CH RDW SD 48.3(H) 35.7 - 48.1 fL [facility]NER NRBC abs 0.00 0.00 - 0.01 K/cumm [facility] CH Blood 01/27/2025 4:05 AM CDT 01/27/2025 4:10 AM CDT Kasia Maldonado MD LAB BLOOD ORDERABLES Final Res ult Performing Organization Address [facility]/ZIP Co de Phone Number WOODROWBENITA HARRIS [address] [place] [address] * (ABNORMAL) Magnesium (01/27/2025 4:05 AM CDT) Magnesium 2.8(H) 1.4 - 2.5 mg/dL Blood 01/27/2025 4:05 AM CDT 01/27/2025 4:10 AM CDT Kasia Maldonado MD LAB BLOOD ORDERABLES Final Res ult [facility]BENITA [address] [facility] [place] [address] * (ABNORMAL) Basic metabolic panel (01/27/2025 4:05 AM CDT) Sodium 140 135 - 145 mmol/L Potassium, pl 4.0 3.3 - 4.9 mmol/L [facility] Chloride 108 97 - 110 mmol/L [facility] CO2 22 22 - 32 mmol/L [facility] Anion gap 10 2 - 15 mmol/L [facility] BUN 19 6 - 25 mg/dL [facility] Creatinine 0.75(L) 0.80 - 1.30 mg/dL [facility] Glucose 114 70 - 199 mg/dL [facility] Comment: Interpretive Data Fasting glucose >/= [...] 2022. Calcium 8.2(L) 8.5 - 10.3 mg/dL [facility] Blood 01/27/2025 4:05 AM CDT 01/27/2025 4:10 AM CDT Kasia Maldonado MD LAB BLOOD ORDERABLES Final Res ult Performing Organization Address City/[facility]/ZIP Co de Phone Number AYAKA HARRIS [address] [place] [address] * POCT glucose (01/27/2025 4:03 AM CDT) Glucose, POC 122 70 - 199 mg/dL POC Performer [id number] [facility] Blood 01/27/2025 4:03 AM CDT 01/27/2025 4:03 AM CDT Kasia Maldonado MD LAB POCT ORDERABLES - DEVICE F inal Result Performing Organization Address City/[facility]/ZIP Co de Phone Number AYAKA HARRIS [address] [place] [address] * POCT glucose (01/27/2025 3:02 AM CDT) Glucose, POC 112 70 - 199 mg/dL POC Performer [id number] CERNER CH Blood 01/27/2025 3:02 AM CDT 01/27/2025 3:02 AM CDT Kasia Maldonado MD LAB POCT ORDERABLES - DEVICE F inal Result Performing Organization Address [facility] Co de Phone Number AYAKA HARRIS [address] [facility] [place] [address] * POCT glucose (01/27/2025 1:57 AM CDT) Glucose, POC 127 70 - 199 mg/dL POC Performer [id number] CERNER CH Blood 01/27/2025 1:57 AM CDT 01/27/2025 1:57 AM CDT Kasia Maldonado MD LAB POCT ORDERABLES - DEVICE F inal Result Performing Organization Address [facility] Co de Phone Number AYAKA HARRIS [address] [address] * POCT glucose (01/27/2025 12:50 AM CDT) Glucose, POC 146 70 - 199 mg/dL POC Performer [id number] CERNER CH Blood 01/27/2025 12:5 0 AM CDT 01/27/2025 12:50 AM CDT Kasia Maldonado MD LAB POCT ORDERABLES - DEVICE F inal Result Performing Organization Address [facility] Co de Phone Number AYAKA HARRIS [address] [facility] [place] [address] * Potassium, whole blood (01/27/2025 12:44 AM CDT) Pathologist [facility] [place] Potassium, bld 3.5 3.3 - 4.9 mmol/L [...] ORDERABLES Final Res ult Performing Organization Address [facility] Co de Phone Number AYAKA HARRIS [address] [facility] [place] [address] * (ABNORMAL) Hemoglobin and hematocrit (01/27/2025 12:44 AM CDT) Hgb 9.1(L) 13.0 - 17.5 g/dL Hct 27.3(L) 38.9 - 50.3 % [facility] Blood 01/27/2025 12:4 4 AM CDT 01/27/2025 12:54 AM CDT Kasia Maldonado MD LAB BLOOD ORDERABLES Final Res ult Performing Organization Address [facility] de Phone Number AYAKA HARRIS [address] [facility] [place] [address] * (ABNORMAL) Blood gas, arterial (01/27/2025 12:44 AM CDT) pH, Art 7.36 7.35 - 7.45 PCO2, Arterial 40 35 - 45 mmHg [facility] PO2, Arterial 93 83 - 108 mmHg [facility] HCO3 Art (Calculated) 22 20 - 30 mmol/L [facility] CH BE, art -3 mmol/L [facility] CH Comment: Interpretive Data No Reference Range Established Current Interpretive Data was last revised on 2017 O2 Sat Art (Measured) 96(H) 90 - 95 % [facility] Blood 01/27/2025 12:4 4 AM CDT 01/27/2025 12:[address] [facility] Kasia Maldonado MD LAB BLOOD ORDERABLES Final Res ult [facility] [address] [place] [address] from Last 3 Months Insurance [facility] [employer] MEDICARE [facility] [employer] Advance Directives For more information, please contact: [phone] * Full Code (Latest Code Status on File) Date Activated Date Inactivated Comments 01/26/2025 4:03 PM 01/31/2025 9:06 PM Care Teams Combination Machine Tool Operator Relationship Specialty Start Date End Date Shabbir White MD [address] [place] [address] PCP - General 02/07/17 Kasia Maldonado MD [address] [place] [address] Surgeon Cardiothoracic Surgery 01/31/25 Sindhu Patricio MD [address] [place] [address] Consulting Physician Cardiology 01/31/25 Miscellaneous, Not In File 01/31/25
--- OUTSIDE RECORDS SUMMARY | 2025-04-28 11:53 | XMS_ITS | Encounter Summary ---
Author Organization [facility] Healthcare Address [address] [place] [address] Care Team Providers Care Pet Stylist Name Role Phone Shabbir White MD Primary Care Prov ider Kasia Maldonado MD Unavailable [phone] Gera Patricio MD Unavailable [phone] Miscellaneous, Not In File Unavailable Unava ilable Encounter Details Date Type Department Care Team (Late st Contact Info) Description 02/02/2025 [facility] Post Discharge Follow up phone call [facility] [address] [place] [address] Evangelina Khan Social History Tobacco Use Types Packs/Day Years Used Date Smoking Tobacco: Former Cigarettes 1 16 1 970 - 1986 Smokeless Tobacco: Never Alcohol Use Standard Drinks/Week Comments Yes 1 (1 standard drink = 0.6 oz pur e alcohol) nightly [facility] Utilities Answer Date Recorded In the past 12 months has [employer], gas, oil, or water [employer] threatened to shut off services in your [...] week 01/31/2025 How often do you attend [facility] or alevism services? Never 01/31/2025 Do you belong to any clubs o r organizations such as holiness groups, unions, fraternal or athletic groups, or [...] time in the past [address] [facility], were you homeless or living in a care home (including now)? No 01/31/2025 Personal Safety Answer Date Recorded Have you ever been in or are you currently in a harmful physical or emotional relationship or is someone making you feel afraid or unsafe? 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 Gender Identity Not on file Sexual Orientation Not on file documented as of this encounter Plan of Treatment Not on file documented as of this encounter Visit Diagnoses Not on filedocumented in this encounter Care Teams Pet Stylist Relationship Specialty Start Date End Date Shabbir White MD [address] [place] [address] PCP - General 02/07/17 Kasia Maldonado MD [address] [place] [address] Surgeon Cardiothoracic Surgery 01/31/25 Gera Patricio MD [address] [place] [address] Consulting Physician Cardiology 01/31/25 Miscellaneous, Not In File 01/31/25 documented as of this encounter
--- OUTSIDE RECORDS SUMMARY | 2025-04-28 11:53 | XMS_ITS | Encounter Summary ---
Author Organization [facility] Healthcare Address [address] [place] [address] Care Team Providers Care Clinical Registered Nurse Name Role Phone Shabbir White MD Primary Care Prov ider Kasia Maldonado MD Unavailable [phone] Gera Patricio MD Unavailable Miscellaneous, Not In File Unavailable Unava ilable Encounter Details Date Type Department Care Team (Late st Contact Info) Description 04/27/2025 Telephone [facility] Medical Group Cardiology [address] [place] [address] Gera Patricio MD [address] [facility] [address] [facility] [address], [address] [place] [address] Social History Tobacco Use Types Packs/Day Years Used Date Smoking Tobacco: Former Cigarettes 1 16 1 970 - 1986 Smokeless Tobacco: Never Alcohol Use Standard Drinks/Week Comments Yes 1 (1 standard drink = 0.6 oz pur e alcohol) nightly [facility] Utilities Answer Date Recorded In the past 12 months has [employer], gas, oil, or water company threatened to [...] often do you attend chur ch or worship services? 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 Pt was doing cardio this morning, walking up and down the the street and then developed chest painwith tooth pain on the left side. Pt states that he is still having chest pain, it has been unrelieved with rest. Advised pt to go to the ER for evaluation. Pt verbalizes understanding and agreeable. * Telephone Encounter - Hayley Guevara - 04/28/2025 10:31 AM CDT Pt states MAF and RN states his chest pain might be GI related. Pt states he had chest pain last night on the left side of his chest and again this morning after walking. Requesting call back to discuss. Contact: * Telephone Encounter - Milagros Story RN - 04/28/2025 8:32 AM CDT Spoke with pt, reviewed response below from OLMAN. Pt verbalizes understanding. * Telephone Encounter - Milagros Story RN - 04/27/2025 2:23 PM CDT Spoke with pt, pt reports having substernal pain that feels like a gastritis or heartburn about 3times since his bypass surgery. Pt states symptoms begin after eating dinner and last about 1 hour then goes away on its own. Pt states he has been going to cardiac rehab and denies any symptoms while exercising. Pt denies any other symptoms. Pt has been compliant with all of his medications. Advised pt that symptoms sound GI related and he should also reach out to PCP. Pt advised to go to the ERfor any unrelieved chest pain. Pt would like [facility]'s recommendations as well. He states he is going on a family trip soon and wanted some reassurance. * Telephone Encounter - Pat Pham - 04/27/2025 2:13 PM CDT Pt had some chest pain a few days ago and he [facility] because he is supposed to be going on a family vacation soon please advise thank you Contact: * Telephone Encounter - Milagros Story RN - 04/27/2025 10:42 AM CDT Spoke with pt, advised that AST and Lipid panel WNL. Pt verbalizes understanding. * Telephone Encounter - Pat Pham - 04/27/2025 10:36 AM CDT Pt requesting a call back to discuss his blood work and test results please advise thank you Contact: documented in this encounter Plan of Treatment Not on file documented as of this encounter Visit Diagnoses Not on filedocumented in this encounter Care Teams Clinical Registered Nurse Relationship Specialty Start Date End Date Shabbir White MD [address] [place] [address] PCP - General 02/07/17 Kasia Maldonado MD [address] [place] [address] Surgeon Cardiothoracic Surgery 01/31/25 Gera Patricio MD [address] [facility] [address], [address] [place] [address] Consulting Physician Cardiology 01/31/25 Miscellaneous, Not In File 01/31/25 documented as of this encounter
--- OUTSIDE RECORDS SUMMARY | 2025-04-28 11:53 | XMS_ITS ---
Author Organization [facility] C Address [address] [place] [address] Care Team Providers Care Waiter/Waitress Bar Name Role Phone Shabbir White MD Primary Care Prov ider Kasia Maldonado MD Unavailable [phone] Gera Patricio MD Unavailable [phone] Miscellaneous, Not In File Unavailable Unava ilable [...] now. Assessment & Plan (09/09/2023 1:08 PM RITUAL CIRCUMCISER): 2/2 RK OU, patient having issues with I/R and having other health issues Would like to return lenses and try again at another time. Will return Skidmore lenses and RTC for refit in future [...] next exam OS RTC for dispense reF# [id number] Assessment & Plan (05/23/2023 4:00 PM CDT): 2/2 RK OU, possible OHx of amblyopia OD; patient states that OD (even prior to RK) has never seen as well as OS Educated patient on options, corneal GP (would need reverse kate design) vs scleral Patient concerned about dryness and comfort, will go ahead with scleral fit today Today with Skidmore 16.0, excellent comfort OU: OD: 450um central, minimal limbal. Slighlt toe impingement 360, better periphery with flat lens OS: 450um central, minimal limbal. Slight toe impitngement 360, better periphery with flat and better vision with FSE2 Flat periphery / FSE2 / aim for 280um central clearance with adjustments today BCVA 20/30- OD; 20/25-- OS RTC for dispense Ref# [id number] Assessment & Plan (12/11/2022 4:19 PM RITUAL CIRCUMCISER): Patient is s/p 1 cut RK OU and has to change between several pairs of glasses through the day due to fluctuations in refractive error. Pt has been told about scleral lenses in the past and is interested in trying them. Will consult with Dr. Rivera and schedule and evaluation. Retinal drusen of both eyes 06/05/2022 Assessment & Plan (12/11/2022 4:19 PM RITUAL CIRCUMCISER): Mild and stable. F/u annually. Assessment & [...] CPM. Assessment & Plan (11/28/2021 1:23 PM RITUAL CIRCUMCISER): Continue ATs prn. Assessment & Plan (05/30/2021 2:28 PM CDT): PF ATs prn. Assessment & Plan (01/31/2021 1:46 PM CDT): Well controlled with artificial tears. CPM Assessment & Plan (12/13/2020 1:16 PM RITUAL CIRCUMCISER): Pt feels his symptoms are well controlled [...] 10/26/2019 Assessment & Plan (10/29/2019 7:17 PM RITUAL CIRCUMCISER): Chest pain is atypical in that it occurs only sometimes in his in various locations of his chest. I am suspicious that it is musculoskeletal, but would recommend a stress test. As his EKG is normal, imaging is not required. Biceps tendinitis of right upper extremity 11/25 Overview (11/25/2018): Added automatically from request for surgery [id number] Incomplete tear of right rotator cuff 11/25/2018 Overview (11/25/2018): Added automatically from request for surgery [id number] Open angle with borderline f indings and [...] ck. Assessment & Plan (12/11/2022 4:18 PM RITUAL CIRCUMCISER): Mild OAG vs suspect. Started on tx [...] ck. Assessment & Plan (11/28/2021 1:23 PM RITUAL CIRCUMCISER): Mild OAG vs suspect. IOP well controlled [...] irritation. Assessment & Plan (12/13/2020 1:21 PM RITUAL CIRCUMCISER): IOP stable on 1 class. Travatan is [...] OU Assessment & Plan (12/11/2022 4:19 PM RITUAL CIRCUMCISER): S/p RK OU Assessment & Plan (06/05/2022 3:57 PM CDT): S/p 16 incision RK. Stable. Observe. Assessment & Plan (11/28/2021 1:23 PM RITUAL CIRCUMCISER): S/p 16 incision RK OU Assessment & [...]
--- OUTSIDE RECORDS SUMMARY | 2025-04-28 11:53 | XMS_ITS | Clinical Summary ---
Author Organization [facility] Address [address], [address] [address] Phone Care Team Providers Care Blade Boner Name Role Phone Shabbir White MD Primary Care Provider + Quique Smiley DO Unavailable [phone] Allergies No known active allergies Medications polyethylene [...] (#1) 06/20/202406/22, 07/21/2020 SARS-COV-2 Immunization ( - season) 2024 07/19/2021, 12/22/2020, 11/24/2020 Respiratory Syncytial Virus (RSV) Immunization (Adult) (1 - 1-dose 75+ series) 2025 Colonoscopy 08/15/2026 08/15/2016 Colorectal Cancer Screening 08/15/2026 Hepatitis B Immunization Aged Out No longer [...] Most Recently Relevant to Health Maintenance Insurance [facility] Care Teams Blade Boner Relationship Specialty Start Date End Date Shabbir White MD PCP - General Family Medicine 08/16/16 Quique Smiley DO Gastroenterology 08/16/16
[2025-04-28 12:11] LABS: Hematocrit 37.5 % (42.0-52.0); Hemoglobin 11.9 g/dL (14.0-18.0); Immature Granulocyte Percent A 1.0 % (0-0.5); Lymphocytes Absolute Auto 1.97 K/mm3 (0.9-3.2); Mean Corpuscular HGB Conc 31.7 g/dl (32-36); Mean Corpuscular Hemoglobin 30.1 pg (26-34); Mean Corpuscular Volume 94.7 fl (80-100); Nucleated Red Blood Cells Absolute Auto 0.000 K/mm3 (0.0-0.012); Nucleated Red Blood Cells Perc 0.0 % (0.0-0.2); Platelet Count Result 336 k/mm3 (150-375); Red Blood Count 3.96 M/mm3 (4.6-6.20); White Blood Count 13.5 K/mm3 (4.5-10.0)
[2025-04-28 12:25] LABS: INR 1.0; Prothrombin Time 13.4 Seconds (11.1-14.7)
[2025-04-28 12:26] LABS: Alanine Aminotransferase 23 U/L (6-50); Albumin Level 3.8 g/dL (3.5-5.1); Alkaline Phosphatase 47 U/L (38-126); Anion Gap 7 mmol/L (4-12); Aspartate Amino Transferase 34 U/L (17-59); Bilirubin,Total 0.3 mg/dL (0.2-1.3); Blood Urea Nitrogen 18 mg/dL (9-20); Calcium 8.9 mg/dL (8.4-10.2); Carbon Dioxide 27 mmol/L (22-30); Chloride 99 mmol/L (98-107); Estimated CRCL calculation 60 ml/min; Estimated Glomerular Filt Rate > 60; Glucose 121 mg/dL (65-110); Lipase 84 U/L (23-300); Partial Thromboplastin Time 24.4 Seconds (22.3-36.8); Potassium 3.7 mmol/L (3.4-5.0); Sodium 133 mmol/L (137-145); Total Protein 7.0 g/dL (6.3-8.2)
[2025-04-28 12:37] LABS: Troponin I < 0.012 ng/mL (0.000-0.034)
--- NOTE | 2025-04-28 13:09 | ED_ITS ---
HPI - Chest Pain General Chief Complaint: Chest Pain <Coni Peterson PA-C - Last Filed: 04/28/25 13:19> Stated Complaint: chest pain <Coni Peterson PA-C - Last Filed: 04/28/25 13:19> Time Seen by Provider: 04/28/25 14:57 <Coni Peterson PA-C - Last Filed: 04/28/25 13:19> Focused HPI: 74 y/o M with a hx of CAD s/p CABG 3 [address] Maldonado presents to the ED for chest pain that started at 0930. Patient states he was walking when he began developing pain to the left side of his chest and left teeth. He does note that he is intermittent chronic dental pain and is unsure if the pain from his chest was radiating to his teeth/jaw. He denies associated nausea, vomiting, diaphoresis or shortness of breath. He states the pain is worse with coughing and palpation of his left chest wall. 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 Patricio, and was advised to come to the ED for further evaluation. He endorses trace edema to his bilateral lower extremities since his CABG. GENERAL: Well-appearing, well-nourished, and in no acute distress. HEAD: Normocephalic, atraumatic. CHEST: Clear to auscultation. ?No respiratory distress. HEART: Regular rate and rhythm.? NEURO: ?Alert and oriented x3. Patient screened in triage and initial orders placed.? ?Additional care and disposition to be based upon?diagnostic testing and treatment. <Coni Peterson PA-C - Last Filed: 04/28/25 13:19> History of Present Illness HPI narrative: In addition to the MSE performed above: The patient states that he went to his cardiac rehab yesterday and did 30 minutes of cardio with no chest pain. He then lifted weights working on his shoulders and chest muscles. He then felt so good that he did a another weight lighting workout at night. Today he has left-sided chest pain at the left anterior axillary line that is worse with movement and has point tenderness. < Praneeth Ortega MD - Last Filed: 04/28/25 17:47> Related Data Home Medications: Home Medications ?Medication ?Instructions ?Recorded ?Confirmed ?Last Taken ?Type latanoprost 0.005 % eye drops 1 drp EACH EYE HS 05/17/24 04/21/25 Unknown History (Xalatan) vitamins A,C,P-pqzf-khxcim 4,296 1 cap PO BID 08/16/24 04/21/25 Unknown History mcg-226 mg-90 mg capsule (PreserVision AREDS) clopidogrel 75 mg tablet (Plavix) 75 mg PO DAILY 02/25/25 04/21/25 Unknown History pantoprazole 40 mg granules 40 mg PO DAILY 02/25/25 04/21/25 Unknown History delayed-release for susp in packet (Protonix) rosuvastatin 20 mg tablet 20 mg PO DAILY 02/25/25 04/21/25 Unknown History aspirin 81 mg tablet,delayed 81 mg PO ONCE 03/17/25 04/21/25 Unknown History release famotidine 20 mg tablet 20 mg PO ONCE 03/17/25 04/21/25 Unknown History <Coni Peterson PA-C - Last Filed: 04/28/25 13:19> Allergies/Adverse Reactions: Allergies Allergy/AdvReac Type Severity Reaction Status Date / Time No Known Allergies Allergy Verified 04/28/25 12:07 <Coni Peterson PA-C - Last Filed: 04/28/25 13:19> [facility] Past Medical History Medical History: Medical History BMI 24.0-24.9, adult <Coni Peterson PA-C - Last Filed: 04/28/25 13:19> Surgical History Surgical History: Surgical History History of coronary artery bypass graft (01/2025) X4 History of orchiectomy, unilateral (04/2024) Right for persistent orchalgia History of epididymectomy (08/2023) right <Coni Peterson PA-C - Last Filed: 04/28/25 13:19> Family History Family History: Family History Father Hypertension Mother Osteoporosis Sibling Breast cancer Other Family history of glaucoma Family history of osteoporosis <Coni Peterson PA-C - Last Filed: 04/28/25 13:19> Social History Social History: Social History Smoking packs per day: 1.25 Smoking cigarettes per day: 25.0 Years smoked: 20 Smoking pack-years: 25.00 Smoking status: Former smoker Tobacco type: cigarettes Second hand tobacco smoke exposure: No Smoking end date: 08/14/86 Alcohol intake: current Drinks per week: 7 Substance use: never Substance use type: does not use Do You Feel Safe in your Home?: Yes Lack of Transportation: No Lack of Food: Never True Current Housing: I Have Housing Concerned About Future Housing: No Difficulty Paying Gas/Electric Bills: No Difficulty Paying for Meds: No Currently Unemployed: No Education: Master's Degree or Higher Difficulty w/ Childcare or Family Care: No Living arrangements: with family Additional living arrangements comments: 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 Head: atraumatic. EYES: EOMI, NOSE: Atraumatic NECK: Trachea midline RESPIRATORY: No increased rate of breathing, clear to ausculation CARDIOVASCULAR: RRR, no peripheral edema, reproducible chest wall pain on the left side of the anterior axillary/pectoral. Pain is reproducible with pushup motion ABDOMINAL: Non-distended soft nontender MUSCULOSKELETAl: No obvious deformities NEURO: Alert. Moving 4/4 extremities SKIN:: Warm, dry. Normal color PSYCHIATRIC: Normal affect <Praneeth Ortega MD - Last Filed: 04/28/25 17:47> Course Vital Signs Vital signs: Vital Signs Temperature 97.6 F 04/28/25 12:03 Pulse Rate 84 04/28/25 12:03 Respiratory Rate 16 04/28/25 12:03 Blood Pressure 144/73 H 04/28/25 12:03 Pulse Oximetry 97 04/28/25 12:03 Oxygen Delivery Room Air 04/28/25 12:03 Temperature 98.6 F 04/28/25 15:15 Pulse Rate 72 04/28/25 15:32 Respiratory Rate 16 04/28/25 15:32 Blood Pressure 162/84 H 04/28/25 16:50 Pulse Oximetry 97 04/28/25 15:32 Oxygen Delivery Room Air 04/28/25 15:13 <Coni Peterson PA-C - Last Filed: 04/28/25 13:19> Vital Signs Temperature 97.6 F 04/28/25 12:03 Pulse Rate 84 04/28/25 12:03 Respiratory Rate 16 04/28/25 12:03 Blood Pressure 144/73 H 04/28/25 12:03 Pulse Oximetry 97 04/28/25 12:03 Oxygen Delivery Room Air 04/28/25 12:03 Temperature 98.6 F 04/28/25 15:15 Pulse Rate 72 04/28/25 15:32 Respiratory Rate 16 04/28/25 15:32 Blood Pressure 162/84 H 04/28/25 16:50 Pulse Oximetry 97 04/28/25 15:32 Oxygen Delivery Room Air 04/28/25 15:13 <Praneeth Ortega MD - Last Filed: 04/28/25 17:47> MDM - Chest Pain MDM Narrative Medical decision making narrative: -Course: 74-year-old male presenting 3 months after his CABG with left- sided chest pain. He lifted weights multiple times yesterday and now has reproducible chest wall pain that is exacerbated by the pushup motion. His EKG, troponins and CT PE were all negative. Patient will be discharged follow-up with Dr. Locke Given return precautions. -DDX includes but is not limited to: Chest wall pain, muscle soreness, ACS, pericarditis, pneumonia, Independent EKG interpretation: Rhythm [sinus], Rate [82], [place] -[normal], [place] -[normal], QRS [narrow], QTC [normal], T waves -[negative for concerning inversions], ST Segments - [Negative for concerning elevations] Final interpretations: [Normal Sinus Rhythm] <Praneeth Ortega MD - Last Filed: 04/28/25 17:47> Lab Data Result diagrams: 04/28/25 11:56 04/28/25 11:56 <Coni Peterson PA-C - Last Filed: 04/28/25 13:19> Labs: Lab Results 04/28/25 04/28/25 Range/Units 11:56 14:49 WBC 13.5 H (4.5-10.0) K/mm3 RBC 3.96 L (4.6-6.20) M/mm3 Hgb 11.9 L (14.0-18.0) g/dL Hct 37.5 L (42.0-52.0) % MCV 94.7 (80-100) fl MCH 30.1 (26-34) pg MCHC 31.7 L (32-36) g/dl RDW 15.3 H (11.5-14.5) % Plt Count 336 (150-375) k/mm3 MPV 8.3 (7.4-10.4) fl Immature Gran % (Auto) 1.0 H (0-0.5) % Neut % (Auto) 73.4 H (45.5-73.1) % Lymph % (Auto) 14.6 L (18.3-44.2) % [place] % (Auto) 9.8 H (2.6-8.5) % Eos % (Auto) 0.5 (0-4.4) % Baso % (Auto) 0.7 (0.2-1.2) % Lymph # (Auto) 1.97 (0.9-3.2) K/mm3 [place] # (Auto) 1.3 H (0.1-0.6) K/mm3 Eos # (Auto) 0.1 (0-0.3) K/mm3 Baso # (Auto) 0.1 (0.0-0.1) K/mm3 Abs Immat Gran (auto) 0.14 H (0.00-0.031) K/mm3 Absolute Neuts (auto) 9.9 H (1.3-6.7) K/mm3 Absolute Nucleated RBC 0.000 (0.0-0.012) K/mm3 Nucleated RBC % 0.0 (0.0-0.2) % PT 13.4 (11.1-14.7) Seconds INR 1.0 APTT 24.4 (22.3-36.8) Seconds Sodium 133 L (137-145) mmol/L Potassium 3.7 (3.4-5.0) mmol/L Chloride 99 (98-107) mmol/L Carbon Dioxide 27 (22-30) mmol/L Anion Gap 7 (4-12) mmol/L BUN 18 (9-20) mg/dL Creatinine 0.89 (0.7-1.3) mg/dL Estim Creat Clear Calc 60 ml/min Estimated GFR > 60 (59 - ) Glucose 121 H (65-110) mg/dL Calcium 8.9 (8.4-10.2) mg/dL Total Bilirubin 0.3 (0.2-1.3) mg/dL AST 34 (17-59) U/L ALT 23 (6-50) U/L Alkaline Phosphatase 47 (38-126) U/L Troponin I < 0.012 < 0.012 (0.000-0.034) ng/mL NT-Pro-B Natriuret Pep 506 H (19.9-100) pg/mL Total Protein 7.0 (6.3-8.2) g/dL Albumin 3.8 (3.5-5.1) g/dL Lipase 84 (23-300) U/L <Coni Peterson PA-C - Last Filed: 04/28/25 13:19> Lab Results 04/28/25 04/28/25 Range/Units 11:56 14:49 WBC 13.5 H (4.5-10.0) K/mm3 RBC 3.96 L (4.6-6.20) M/mm3 Hgb 11.9 L (14.0-18.0) g/dL Hct 37.5 L (42.0-52.0) % MCV 94.7 (80-100) fl MCH 30.1 (26-34) pg MCHC 31.7 L (32-36) g/dl RDW 15.3 H (11.5-14.5) % Plt Count 336 (150-375) k/mm3 MPV 8.3 (7.4-10.4) fl Immature Gran % (Auto) 1.0 H (0-0.5) % Neut % (Auto) 73.4 H (45.5-73.1) % Lymph % (Auto) 14.6 L (18.3-44.2) % [place] % (Auto) 9.8 H (2.6-8.5) % Eos % (Auto) 0.5 (0-4.4) % Baso % (Auto) 0.7 (0.2-1.2) % Lymph # (Auto) 1.97 (0.9-3.2) K/mm3 [place] # (Auto) 1.3 H (0.1-0.6) K/mm3 Eos # (Auto) 0.1 (0-0.3) K/mm3 Baso # (Auto) 0.1 (0.0-0.1) K/mm3 Abs Immat Gran (auto) 0.14 H (0.00-0.031) K/mm3 Absolute Neuts (auto) 9.9 H (1.3-6.7) K/mm3 Absolute Nucleated RBC 0.000 (0.0-0.012) K/mm3 Nucleated RBC % 0.0 (0.0-0.2) % PT 13.4 (11.1-14.7) Seconds INR 1.0 APTT 24.4 (22.3-36.8) Seconds Sodium 133 L (137-145) mmol/L Potassium 3.7 (3.4-5.0) mmol/L Chloride 99 (98-107) mmol/L Carbon Dioxide 27 (22-30) mmol/L Anion Gap 7 (4-12) mmol/L BUN 18 (9-20) mg/dL Creatinine 0.89 (0.7-1.3) mg/dL Estim Creat Clear Calc 60 ml/min Estimated GFR > 60 (59 - ) Glucose 121 H (65-110) mg/dL Calcium 8.9 (8.4-10.2) mg/dL Total Bilirubin 0.3 (0.2-1.3) mg/dL AST 34 (17-59) U/L ALT 23 (6-50) U/L Alkaline Phosphatase 47 (38-126) U/L Troponin I < 0.012 < 0.012 (0.000-0.034) ng/mL NT-Pro-B Natriuret Pep 506 H (19.9-100) pg/mL Total Protein 7.0 (6.3-8.2) g/dL Albumin 3.8 (3.5-5.1) g/dL Lipase 84 (23-300) U/L <Praneeth Ortega MD - Last Filed: 04/28/25 17:47> Discharge Plan Discharge Clinical Impression: Chest wall pain <LEIGH Henderson Last Filed: 04/28/25 13:19> Patient Disposition: Home <LEIGH Henderson Last Filed: 04/28/25 13:19> Condition: Stable <LEIGH Henderson Last Filed: 04/28/25 13:19> Instructions: Antibiotic Form, Chest Wall Pain (ED) <Coni Peterson PA-C - Last Filed: 04/28/25 13:19> Additional Instructions: You were seen in the emergency department for left-sided chest pain. This is likely musculoskeletal pain/chest wall pain from the weightlifting you did yesterday. Please follow-up with Dr. Patricio. If you develop any new or worsening symptoms please return to ED for re-evaluation. <LEIGH Henderson Last Filed: 04/28/25 13:19> Patient Language: [place]ankan <LEIGH Henderson Last Filed: 04/28/25 13:19> Prescriptions: No Action famotidine 20 mg tablet 20 mg PO ONCE clonazepam 0.5 mg tablet,disintegrating 0.5 mg PO BID Qty: 60 5RF aspirin 81 mg tablet,delayed release (DR/EC) 81 mg PO ONCE acetaminophen-codeine 300-30 mg tablet 1 tablet PO QID PRN (Reason: pain) Qty: 60 1RF triamcinolone acetonide 0.1 % cream 1 applic topical BID Qty: 80 0RF prednisone 10 mg tablet 10 mg PO DAILY Qty: 100 0RF PreserVision AREDS 4,296 mcg-226 mg-90 mg capsule 1 cap PO BID clopidogrel [Plavix] 75 mg tablet 75 mg PO DAILY pantoprazole [Protonix] [address] for susp in packet 40 mg PO DAILY rosuvastatin 20 mg tablet 20 mg PO DAILY latanoprost [Xalatan] 0.005 % drops 1 drp EACH EYE HS finasteride 5 mg tablet 5 mg PO DAILY Qty: 90 3RF Patient Comments: am <Coin Peterson PA-C - Last Filed: 04/28/25 13:19> Follow-up/Referrals: Gera Patricio MD [Physician] - 1 Week (Chest wall pain, s/p cabg) Shabbir White MD [Primary Care Provider] - <Coni Peterson PA-C - Last Filed: 04/28/25 13:19>
--- OUTSIDE RECORDS SUMMARY | 2025-04-28 13:28 | XMS_ITS | Encounter Summary ---
Author Organization [facility] Address [address] [place] [address] Care Team Providers Care Maintenance Department Manager Name Role Phone Shabbir White MD Primary Care Provider [phone] Reason for Visit * Rehabilitation (Routine) - Authorized Specialty Diagnoses / Procedures Referred By Contact Referred To Contact Cardiac Rehabilitation / [facility] Cardiopulmonary Rehab Diagnoses S/P CABG x 4 Procedures PHASE II CARDIAC REHAB Gera Patricio MD [address] [facility] [address] [place] [address] Phone: tel:[phone] fax: [facility] [address] [place] [address] fax: Referral ID Status Reason Start Date Expiration Date V isits Requested Visits Authorized [id number] Authorized 03/08/2025 36 36 Encounter Details Date Type Department Care Team (Latest Contact Info) Description 04/27/2025 6:06 AM CDT Hospital Encounter [facility] [address] [place] [address] Gera Patricio MD [address] [place] [address] Arrived Social History Tobacco Use Types Packs/Day Years [...] as of this encounter Plan of Treatment Upcoming Encounters Date Type Department Care Team (Late st Contact Info) Description 05/16/2025 12:30 PM CDT Appointment [facility] [address] [place] [address] Gera Patricio MD [address] [place], [place] [id number] 05/18/2025 12:30 PM CDT Appointment [facility] [address] [place] [address] Gera Patricio MD [address] [place] [address] 05/19/2025 12:30 PM CDT Appointment [facility] [address] [place] [address] Gera Patricio MD [address] [place] [address] 05/23/2025 12:30 PM CDT Appointment [facility] [address] [place] [address] Gera Patricio MD [address] [place] [address] 05/25/2025 12:30 PM CDT Appointment [facility] [address] [place] [address] Gera Patricio MD [address] [place] [address] 05/26/2025 12:30 PM CDT Appointment [facility] [address] [place] [address] Gera Patricio MD [address] [address] 05/30/2025 12:30 PM CDT Appointment [facility] [address] [place] [address] Gera Patricio MD [address] [address] 06/01/2025 12:30 PM CDT Appointment [facility] [address] [place] [address] Gera Patricio MD [address] [address] 06/02/2025 12:30 PM CDT Appointment [facility] [address] [place] [address] Gera Patricio MD [address] [address] 06/06/2025 12:30 PM CDT Appointment [facility] [address] [place] [address] Gera Patricio MD [address] [address] 06/08/2025 12:30 PM CDT Appointment [facility] [address] [place] [address] Gera Patricio MD [address] [address] 06/09/2025 12:30 PM CDT Appointment [facility] [address] [place] [address] Gera Patricio MD [address] [address] 06/13/2025 12:30 PM CDT Appointment [facility] [address] [place] [address] [facility] Pat[facility]io MD [address] [facility] [address] [address] 06/15/2025 12:30 PM CDT Appointment [facility] [address] [place] [address] Gera Patricio MD [address] [address] 06/16/2025 12:30 PM CDT Appointment [facility] [address] [place] [address] Gera Patricio MD [address] [facility] [address] [place] [address] 06/22/2025 12:30 PM CDT Appointment [facility] [address] [place] [address] Gera Patricio MD [address] [address] documented as of this encounter Visit Diagnoses Not on filedocumented in this encounter Care Teams Maintenance Department Manager Relationship Specialty Start Date End Date Shabbir White MD [address] [address] PCP - General 08/09/12 documented as of this encounter
--- OUTSIDE RECORDS SUMMARY | 2025-04-28 13:28 | XMS_ITS | Clinical Summary ---
[facility] Organization [facility] Address [address] [place] [address] Care Team Providers Care Employee Development Director Name Role Phone Shabbir White MD Primary Care Prov ider Kasia Maldonado MD Unavailable [phone] Sindhu Patricio MD Unavailable Miscellaneous, Not In File [...] now. Assessment & Plan (09/09/2023 1:08 PM SPORTS MEDIA): 2/2 RK OU, patient having issues with I/R and having other health issues Would like to return lenses and try again at another time. Will return [place] lenses and RTC for refit in future [...] next exam OS RTC for dispense reF# [id number] Assessment & Plan (05/23/2023 4:00 PM CDT): 2/2 RK OU, possible OHx of amblyopia OD; patient states that OD (even prior to RK) has never seen as well as OS Educated patient on options, corneal GP (would need reverse kate design) vs scleral Patient concerned about dryness and comfort, will go ahead with scleral fit today Today with [place] 16.0, excellent comfort OU: OD: 450um central, minimal limbal. Slighlt toe impingement 360, better periphery with flat lens OS: 450um central, minimal limbal. Slight toe impitngement 360, better periphery with flat and better vision with FSE2 Flat periphery / FSE2 / aim for 280um central clearance with adjustments today BCVA 20/30- OD; 20/25-- OS RTC for dispense Ref# [id number] Assessment & Plan (12/11/2022 4:19 PM SPORTS MEDIA): Patient is s/p 1 cut RK OU and has to change between several pairs of glasses through the day due to fluctuations in refractive error. Pt has been told about scleral lenses in the past and is interested in trying them. Will consult with Dr. Rivera and schedule and evaluation. Retinal drusen of both eyes 06/05/2022 Assessment & Plan (12/11/2022 4:19 PM SPORTS MEDIA): Mild and stable. F/u annually. Assessment & [...] CPM. Assessment & Plan (11/28/2021 1:23 PM SPORTS MEDIA): Continue ATs prn. Assessment & Plan (05/30/2021 2:28 PM CDT): PF ATs prn. Assessment & Plan (01/31/2021 1:46 PM CDT): Well controlled with artificial tears. CPM Assessment & Plan (12/13/2020 1:16 PM SPORTS MEDIA): Pt feels his symptoms are well controlled [...] 10/26/2019 Assessment & Plan (10/29/2019 7:17 PM SPORTS MEDIA): Chest pain is atypical in that it occurs only sometimes in his in various locations of his chest. I am suspicious that it is musculoskeletal, but would recommend a stress test. As his EKG is normal, imaging is not required. Biceps tendinitis of right upper extremity 11/25 Overview (11/25/2018): Added automatically from request for surgery [id number] Incomplete tear of right rotator cuff 11/25/2018 Overview (11/25/2018): Added automatically from request for surgery [id number] Open angle with borderline f indings and [...] ck. Assessment & Plan (12/11/2022 4:18 PM SPORTS MEDIA): Mild OAG vs suspect. Started on tx [...] ck. Assessment & Plan (11/28/2021 1:23 PM SPORTS MEDIA): Mild OAG vs suspect. IOP well controlled [...] irritation. Assessment & Plan (12/13/2020 1:21 PM SPORTS MEDIA): IOP stable on 1 class. Travatan is [...] OU Assessment & Plan (12/11/2022 4:19 PM SPORTS MEDIA): S/p RK OU Assessment & Plan (06/05/2022 3:57 PM CDT): S/p 16 incision RK. Stable. Observe. Assessment & Plan (11/28/2021 1:23 PM SPORTS MEDIA): S/p 16 incision RK OU Assessment & Plan (05/30/2021 2:28 PM CDT): Hx of RK. Observe. Squamous cell carcinoma of skin of face 11/01/19 16 History of nonmelanoma skin cancer 09/26/2015 Dysesthesia 09/30/2014 Skin cancer 08/26/2014 Vitamin D deficiency disease 11/30/2013 Pain in soft tissues of limb 06/11/2011 Osteopenia 03/25/2011 Encounters Date Type Department Care Team Description 04/27/2025 Telephone [facility] Cardiology [address] [place] [address] Sindhu Patricio MD 04/16/2025 Telephone [facility] Ophthalmology [address] [place] [address] 1st [place] [address] Mike Xavier MD 04/13/2025 Orders Only [facility] [address] [place] [address] Eufemia Shen MD 04/06/2025 Results Follow-Up [facility] Cardiology [address], [place] [address] Sindhu Patricio MD US Arterial Doppler Lower Extremity Bilateral 04/05/2025 1:00 PM CDT Ancillary Procedure [facility] Vascular and Vein Surgery at [address] [place] [address] Claudication 04/01/2025 Telephone [facility] Vascular and Vein Surgery at [address] [place] [address] Afia Carver 03/31/2025 3:00 PM CDT Office Visit [facility] Cardiology at [address] [place] [address] Sindhu Patricio MD 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 [address] [place] [address] Temporal pain Discharge Disposition: Discharge to home or self care 03/03/2025 2:00 PM CDT Office Visit [facility] Surgery [address] [place] [address] Kasia Maldonado MD S/P CABG x 4 (Primary Dx) 02/28/2025 Orders Only [facility] Health Information Management [address] [place] [address] Scanning, Provider 02/25/2025 2:30 PM CDT Office Visit [facility] Cardiology [address] [place] [address] Meghan Camejo NP Coronary artery disease involving hydaburg coronary artery of hydab[place] heart without angina pectoris (Primary Dx); Hx of CABG; Hospital discharge follow-up 02/25/2025 Telephone [facility] Cardiology [address] [place] [phone] Meghan Camejo NP 02/24/2025 Telephone [facility] Cardiology [address] [place] [address] Sindhu Patricio MD 02/17/2025 Documentation [facility] Surgery [address] [place] [address] [address] [place] [address] Jordan Escalera NP 02/16/2025 1:30 PM CDT Office Visit [facility] Ophthalmology [address] [facility] 2nd [address] [place] [address] Sai Lo, OD 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 (Primary Dx); Corneal scar 02/16/2025 1:00 PM CDT Imaging Exam [facility] Ophthalmology [address] [facility] 2[address] [place] [address] 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 02/14/2025 Orders Only [facility] Ophthalmology [address] [facility] 2[address] [place] [address] Sai Lo, OD 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 (Primary Dx) 02/10/2025 10:05 AM CDT Lab [address] [address] Coronary artery disease involving hydaburg coronary artery of [place]ab[place] heart without angina pectoris 02/10/2025 9:30 AM CDT Office Visit [facility] Surgery [address] [place] [address] [address] [place] [address] Jordan Escalera NP Coronary artery disease of [place] heart with stable angina pectoris, unspecified vessel or lesion type (Primary Dx) 02/10/2025 Orders Only [facility] Surgery [address] [place] [address] [address] [place] [phone] Jordan Escalera NP 02/07/2025 Orders Only [facility] Surgery [address] [place] [address] [address] [place] [address] Jordan Escalera NP Coronary artery disease involving hydaburg coronary artery of hydab[place] heart without angina pectoris (Primary Dx) 02/07/2025 Documentation [facility] Surgery [address] [place] [address] [address] [place] [address] Jordan Escalera NP 02/04/2025 1:51 PM CDT - 02/04/2025 11:59 PM CDT Hospital Encounter [facility] Diagnostic Imaging [address] [place] [address] Coronary artery disease involving hydaburg coronary artery of hyd[place] heart without angina pectoris Discharge Disposition: Discharge to home or self care 02/04/2025 10:25 AM CDT Lab [facility] Lab [address] [place] [address] 02/04/2025 10:10 AM CDT Lab [facility] Lab [address] [place] [address] Burning with urination 02/04/2025 Orders Only [facility] Surgery [address] [place] [address] [address] [place] [address] Jordan Escalera NP 02/04/2025 Orders Only [facility] Surgery [address] [place] [address] [address] [place] [address] Jordan Escalera NP Coronary artery disease involving hyd[place] coronary artery of hydab[place] heart without angina pectoris (Primary Dx) 02/04/2025 Orders Only [facility] Surgery [address] [place] [address] [address] [place] [address] Jordan Escalera NP Burning with urination (Primary Dx) 02/03/2025 Documentation [facility] Surgery [address] [place] [address] [address] [place] [address] Rabia Becerra NP 02/02/2025 [facility] Post Discharge Follow up phone call [facility] [id number] [place] [address] Evangelina Khan 01/31/2025 Telephone [facility] Cardiology [address] [place] [address] [address] [phone] Alaina Henderson NP 01/26/2025 7:23 AM CDT - 01/31/2025 4:56 PM [place] [address] Kasia Maldonado MD Coronary artery disease of bypass graft of hydab[place] heart with stable angina pectoris (Primary Dx); Coronary artery disease of [place] artery of [place]ab[place] heart with stable angina pectoris; Coronary artery disease of hydab[place] heart with stable angina pectoris, unspecified vessel [...] ANGIOGRAPHY AND WITH OR WITHOUT LEFT VENTRICULOGRAM 99164; Surgeon: Jassi Nur MD; Location: CARDIAC STRATEGIC BUSINESS DEVELOPMENT; Service: Cardiovascular; Laterality: N/A; ABLATION SVT CAPSULOTOMY [...] sepsis Father (Age 92) Mother (Age 81) OR at age 76 Sister 1 (Age 61) [...] = 0.6 oz pur e alcohol) nightly [facility] Utilities Answer Date Recorded In the [...] often do you attend chur ch or taoist services? Never 01/31/2025 Do you belong to any clubs o r organizations such as episcopalian groups, unions, fraternal or athletic groups, or [...] any time in the past 12 m [facility], were you homeless or living in a correction (including now)? No 01/31/2025 Personal Safety Answer Date Recorded Have you ever been in or are you currently in a harmful physical or emotional relationship or is someone making you feel afraid or unsafe? 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 Device Identifier Shelf Expiration Date Model / Serial / Lot [employer] Plate Bone Low Profile 4 Hole Box Sternum Ti 115.103.04 - [id number] Implanted:Qty: 1 on 01/26/2025 by Kasia Maldonado MD at [facility] Plate N/A: Sternum [employer] 115.103.04 / / [employer] Plate Bone Low Profile 6 Hole H Shape Sternum Ti 115.102.06 - [id number] Implanted:Qty: 1 on 01/26/2025 by Kasia Maldonado MD at [facility] Plate N/A: Sternum [employer] 115.102.06 / / [employer] Plate Bone Low Profile 6 Hole O Shape Sternum Ti 115.104.06 - [id number] Implanted:Qty: 1 on 01/26/2025 by Kasia Maldonado MD at [facility] Plate N/A: Sternum [employer] 115.104.06 / / [employer] Screw Bone Slf Drl Full Thread Locking 3.5x18mm Ti 100.035.18 - [id number] Implanted:Qty: 16 on 01/26/2025 by Kasia Maldonado MD at [facility] Screw N/A: Sternum [employer] 100.035.18 / / Procedures Procedure Name Priority Date/Time Associated Diagnosis Comments AST Routine 04/15/2025 10:06 AM CDT Coronary artery disease of hyd[place] artery of [place] heart with stable angina pectoris Hyperlipidemia LDL goal <70 LIPID PANEL Routine 04/15/2025 10:06 AM CDT Coronary artery disease of [place] artery of [place] heart with stable angina pectoris Hyperlipidemia LDL [...] 10:33 AM CDT Coronary artery disease involving hyd[place] coronary artery of hyd[place] heart without angina pectoris CBC WITHOUT DIFFERENTIAL Routine 02/10/2025 10:33 AM CDT Coronary artery disease involving [place] coronary artery of [place] heart without angina pectoris COMPREHENSIVE METABOLIC PANEL Routine 02/10/2025 10:33 AM CDT Coronary artery disease involving hyd[place] coronary artery of [place] heart without angina pectoris XR CHEST PA LATERAL 2 VIEWS Schedule Routine, Read Routine (OP Routine) 02/04/2025 1:58 PM CDT Coronary artery disease involving hyd[place] coronary artery of hyd[place] heart without angina pectoris EGFR Routine 02/04/2025 [...] 4:27 PM CDT Coronary artery disease of [place] artery of [place] heart with stable angina pectoris POCT GLUCOSE [...] 5:45 PM CDT Coronary artery disease of [place] artery of [place] heart with stable angina pectoris POCT GLUCOSE [...] BLOOD ORDERABLES Gale l Result [facility] [address] [facility] DANY Perez [id number] * Lipid panel (04/15/2025 10:06 AM CDT) [...] LDL-C. Fran PEMBERTON et al. ALVA. 2013;310(19): 1713-6475 (http://education.xMatters.[employer]/faq/TFI390) Chol/HDL ratio 2.5 <5.0 (calc) [facility] [...] MD LAB BLOOD ORDERABLES Gale l Result [facility] [address] [place] o[place]nzalez [id number] * Surgical pathology (04/13/2025 11:10 AM CDT) Skin, shave biopsy 04/13/2025 11:10 AM CDT 04/14/2025 5:35 AM CDT Narrative 04/15/2025 11:52 AM CDT EPIC results best viewed via link to [facility] [address] [place] [address], [address] [address] [email or web address] Note to Patients: This report may [...] 04/15/2025 Submitting Physician Information: Eufemia Mcginnis MD [facility] Dermat[facility] [place], [address] [place] [address], DERMATOPATHOLOGY REPORT RESULTS DIAGNOSIS: SKIN, LEFT THENAR EMINENCE, SHAVE BIOPSY: SQUAMOUS CELL CARCINOMA IN SITU sxt/spng By this signature, I attest that the above diagnosis is based upon my personal examination of the slides(and/or other material indicated in the diagnosis). Trey Mccarry MD, PhD Report Electronically Reviewed and Signed [...] sxt/dxv ICD-9 A; ZSD.1474 Clerical Data A; 94802 The characteristics of special, immunohistochemical, and immunofluorescence stains and in-situ hybridization tests performed by the [facility] were deemed acceptable in ongoing quality assurance specialist measures and in compliance with regulations drawn from the Clinical Laboratory Improvement Act ks5337 (CLIA '88). Control reactions for all stains [...] a facility that is certified by the [facility] as a high-complexity laboratory under CLIA '88. These tests are used for clinical purposes and are not investigational. us Eufemia Wan MD LAB PATHOLOGY ORDERABLES Final Result * US Arterial Doppler Lower Extremity Bilateral (04/05/2025 1:23 PM CDT) Anatomical Region Laterality Modality Vascular Bilateral Ultrasound 04/05/2025 12:5 2 PM CDT Narrative 04/06/2025 11:15 AM CDT Vascular & Vein Surgery [facility] [place] [address] Lower Extremity Arterial Doppler Report Patient Name: OSEAS MORA A : 1950 Study Date: 04/05/2025 12:52:00 PM Gender: M Dimensional Inspector: Kenna Pires Jose Luis Location: [facility] Ref Provider: SINDHU PATRICIO Quality: Adequate Order Provider: SINDHU PATRICIO PROCEDURES: Arterial Report: Bilateral lower extremity arterial Doppler exam at rest. INDICATIONS: I73.9 Peripheral vascular disease, unspecified. HISTORY: HLD. CAD. Afib. Former smoker. COMPARISONS: No previous exams. MEASUREMENTS: Right Value Left Value Rt Brachial Pressure 150 mmHg Lt Brachial Pressure 149 mmHg Rt BEEF SKINNER Pressure 166 mmHg Lt BEEF SKINNER Pressure 155 mmHg Rt DPA Pressure 166 [...] MD - 04/06/2025 Vascular & Vein Surgery [address] [place] [address] Lower Extremity Arterial Doppler Report Patient Name: OSEAS MORA A : 1950 Study Date: 04/05/2025 12:52:00 PM Gender: M Dimensional Inspector: Kenna Pires Jose Luis Location: [facility] Ref Provider: SINDHU PATRICIO Quality: Adequate Order Provider: SINDHU PATRICIO PROCEDURES: Arterial Report: Bilateral lower extremity arterial Doppler exam at rest. INDICATIONS: I73.9 Peripheral vascular disease, unspecified. HISTORY: HLD. CAD. Afib. Former smoker. COMPARISONS: No previous exams. MEASUREMENTS: Right Value Left Value Rt Brachial Pressure 150 mmHg Lt Brachial Pressure 149 mmHg Rt BEEF SKINNER Pressure 166 mmHg Lt BEEF SKINNER Pressure 155 mmHg Rt DPA Pressure 166 [...] Hernandez MD 04/06/2025 10:17:44 AM CDT us iSndhu Patricio MD IMG US PROCEDURES Final R [...] Escalera NP LAB BLOOD ORDERABLES Final Result [facility] [address] Department [place] [address] * (ABNORMAL) CBC without differential (02/10/2025 10:33 AM CDT) Pathologist [facility] WBC 13.51(H) 3.80 - 9.90 K/cumm Hgb 9.7(L) 13.0 - 17.5 g/dL [facility] Hct 30.4(L) 38.9 - 50.3 % [facility] Plt 689(H) 150 - 400 K/cumm [facility] MPV 8.9(L) 9.1 - 12.3 fL [facility] RBC 3.14(L) 4.30 - 5.80 M/cumm [facility] MCV 96.8(H) 81.3 - 96.4 fL [facility] [...] LAB [place] [address] [address] Department [place] [address] * (ABNORMAL) Comprehensive metabolic panel (02/10/2025 10:33 [...] LAB BLOOD ORDERABLES Final Result [facility] [address] Department [place] [address] * X-ray chest 2 views (02/04/2025 1:58 [...] by Hollis Jenmando JOYNER: ANYA Report ID: [id number] Reading Location: [id number] Procedure Note Hollis Gonzalez MD - 02/05/2025 [...] Hollis Gonzalez M.D. MJ: ANYA Report ID: [id number] Reading Location: [id number] us Jordan Escalera MICA LAYER IMG XR PROCEDURES Final Res ult * [...] was last reviewed 2021. Testing performed by: [address] [address] Blood 02/04/2025 10:3 3 AM CDT 02/04/2025 11:17 AM CDT us Jordan Escalera MICA LAYER LAB BLOOD ORDERABLES Final Result [facility] [address] Department [place] [address] * (ABNORMAL) Differential, auto (02/04/2025 10:33 AM CDT) Neutrophil abs 10.94(H) 1.50 - 6.50 K/cumm Comment:Testing performed by : [address] [address] Imm gran abs 0.25(H) 0.00 - 0.10 K/cumm [facility]YAKA Comment:Testing performed by : [address] [address] Lymphocyte abs 1.77 0.80 - 3.30 K/cumm AYAKA Comment:Testing performed by : [address] [address] Monocyte abs 1.58(H) 0.20 - 0.80 K/cumm AYAKA Comment:Testing performed by : [address] [address] Eosinophil abs 0.27 0.00 - 0.50 K/cumm AYAKA Comment:Testing performed by : [address] [address] Basophil abs 0.09 0.00 - 0.10 K/cumm AYAKA Comment:Testing performed by : [address] [address] Neutrophil pct 73.4 % [facility] Comment: Interpretive Data Percent cell count reference ranges are not reported, since discordance with absolute values may lead to misinterpretation of CBC data. Current Interpretive Data was last revised on 2018. Testing performed by: [address] [address] Imm gran pct 1.7 % [facility] Comment: Interpretive Data Percent cell count reference ranges are not reported, since discordance with absolute values may lead to misinterpretation of CBC data. Current Interpretive Data was last revised on 2018. Testing performed by: [address] [address] Lymphocyte pct 11.9 % AYAKA Comment: Interpretive Data Percent cell count reference ranges are not reported, since discordance with absolute values may lead to misinterpretation of CBC data. Current Interpretive Data was last revised on 2018. Testing performed by: [address] [address] Monocyte pct 10.6 % [facility]A Comment: Interpretive Data Percent cell count reference ranges are not reported, since discordance with absolute values may lead to misinterpretation of CBC data. Current Interpretive Data was last revised on 2018. Testing performed by: [address] [address] Eosinophil pct 1.8 % AYAKA Comment: Interpretive Data Percent cell count reference ranges are not reported, since discordance with absolute values may lead to misinterpretation of CBC data. Current Interpretive Data was last revised on 2018. Testing performed by: [address] [address] Basophil pct 0.6 % AYAKA Comment: Interpretive Data Percent cell count reference ranges are not reported, since discordance with absolute values may lead to misinterpretation of CBC data. Current Interpretive Data was last revised on 2018. Testing performed by: [address] [address] Blood 02/04/2025 10:3 3 AM CDT 02/04/2025 11:19 AM CDT us Jordan Escalera MICA LAYER LAB BLOOD ORDERABLES Final Result [facility] [address] [facility] Department [place] [address] * Urinalysis reflex to microscopic and culture Urine, clean voided (02/04/2025 10:33 AM CDT) Color, ur Straw Yellow Comment:Testing performed by : [address] [address] Clarity, ur Clear Clear AYAKA ALVAREZ Comment:Testing performed by : [address] [address] Specific gravity, ur 1.010 1.003 - 1.030 AYAKA Comment:Testing performed by : [address] [address] pH, urine 6.5 AYAKA Comment: Interpretive Data U rine pH is affected by diet, medications, systemic acid-base disturbances, and renal tubular function. pH may affect urinary stone formation. For example, urine pH below 6.0 may help reduce the tendency for calcium phosphate stones and pH greater than 6.0 may reduce the tendency for uric acid stone formation. Source: [facility] Current Interpretive Data was last revised on 2017 Testing performed by: [address] [address] Protein, ur ql Negative Negative AYAKA Comment:Testing performed by : [address] [address] Glucose, ur ql Negative Negative AYAKA ALVAREZ Comment:Testing performed by : [address] [address] Ketones, ur Negative Negative AYAKA ALVAREZ Comment:Testing performed by : [address] [address] Bilirubin, ur Negative Negative AYAKA ALVAREZ Comment:Testing performed by : [address] [address] Blood, ur Negative Negative AYAKA ALVAREZ Comment:Testing performed by : [address] [address] Urobilinogen, ur <2.0 <2.0 mg/dL AYAKA ALVAREZ Comment:Testing performed by : [address], [place]., [address] Nitrite, ur Negative Negative AYAKA ALVAREZ Comment:Testing performed by : [address] [address] Leukocyte esterase, ur Negative Negative AYAKA ALVAREZ Comment:Testing performed by : [address], [place]., [address] UA reflex comment Reflex conditions for microscopic UA and culture not met. AYAKA ALVAREZ Comment:Testing performed by : [address], [place]., [address] Urine, clean voided 02/04/2025 10:33 AM CDT 02/04/2025 11:37 AM CDT us Jordan Escalera NP LAB MICROBIOLOGY - GENERAL ORDERABLES Final Result [facility] [address] [facility] Department [place] [address] * (ABNORMAL) CBC with auto differential (02/04/2025 10:33 AM CDT) WBC 14.90(H) 3.80 - 9.90 K/cumm Comment:Testing performed by : [address] [address] Hgb 8.9(L) 13.0 - 17.5 g/dL AYAKA ALVAREZ Comment:Testing performed by : [address] [address] Hct 27.4(L) 38.9 - 50.3 % AYAKA ALVAREZ Comment:Testing performed by : [address] [address] Plt 483(H) 150 - 400 K/cumm AYAKA ALVAREZ Comment:Testing performed by : [address] [address] MPV 9.4 9.1 - 12.3 fL AYAKA ALVAREZ Comment:Testing performed by : [address] [address] RBC 2.88(L) 4.30 - 5.80 M/cumm AYAKA ALVAREZ Comment:Testing performed by : [address] [address] MCV 95.1 81.3 - 96.4 fL AYAKA Comment:Testing performed by : [address] [address] MCH 30.9 27.1 - 33.3 pg AYAKA ALVAREZ Comment:Testing performed by : [address] [address] MCHC 32.5 32.3 - 35.7 g/dL AYAKA ALVAREZ Comment:Testing performed by : [address], [address] RDW CV 14.1 11.1 - 14.9 % AYAKA Comment:Testing performed by : [address] [address] RDW SD 48.6(H) 35.7 - 48.1 fL AYAKA Comment:Testing performed by : [address] [address] NRBC abs 0.00 0.00 - 0.01 K/cumm AYAKA Comment:Testing performed by : [address] [address] Blood 02/04/2025 10:3 3 AM CDT 02/04/2025 11:19 AM CDT us Jordan Escalera NP LAB BLOOD ORDERABLES Final Result AYAKA [address] [facility] Department of Laboratories [place], [place] [id number] * (ABNORMAL) Comprehensive metabolic panel (02/04/2025 10:33 AM CDT) [employer] Signature Sodium 130(L) 135 - 145 mmol/L Comment:Testing performed by : [address] [address] Potassium, pl 4.6 3.3 - 4.9 mmol/L AYAKA Comment:Testing performed by : [address], [place]., [address] Chloride 96(L) 97 - 110 mmol/L AYAKA Comment:Testing performed by : [address], [place]., [address] CO2 24 22 - 32 mmol/L AYAKA Comment:Testing performed by : [address], [place]., [address] Anion gap 10 2 - 15 mmol/L AYAKA Comment:Testing performed by : [address] [address] BUN 29(H) 6 - 25 mg/dL AYAKA Comment:Testing performed by : [address] [address] Creatinine 1.02 0.80 - 1.30 mg/dL AYAKA Comment:Testing performed by : [address] [address] Glucose 204(H) 70 - 199 mg/dL [facility] Comment: Interpretive Data Fasting glucose >/= [...] was last revised 2022. Testing performed by: [address] [address] Calcium 9.0 8.5 - 10.3 mg/dL AYAKA Comment:Testing performed by : [address] [address] Bilirubin, total 0.4 0.1 - 1.2 mg/dL AYAKA Comment:Testing performed by : [address] [place] [address] Protein, pl 6.8 6.5 - 8.5 g/dL AYAKA ALVAREZ Comment:Testing performed by : [address] [address] Albumin 3.4(L) 3.5 - 5.0 g/dL AYAKA ALVAREZ Comment:Testing performed by : [address] [address] Alk phos 78 40 - 130 Units/L AYAKA ALVAREZ Comment:Testing performed by : [address] [address] ALT 23 7 - 55 Units/L AYAKA ALVAREZ Comment:Testing performed by : [address] [address] AST 30 10 - 50 Units/L AYAKA Comment:Testing performed by : [address] [address] Blood 02/04/2025 10:3 3 AM CDT 02/04/2025 11:17 AM CDT us Jordan Escalera MICA LAYER LAB BLOOD ORDERABLES Final Result AYAKA [address] [facility] Department [place] [address] * eGFR (01/31/2025 6:15 AM [...] ORDERABLES Final Res ult Performing Organization Address [facility] Co de Phone Number [facility] [address] [place] [address] * (ABNORMAL) aPTT (01/31/2025 6:15 AM CDT) aPTT 27(L) 28 - 38 sec Comment: Interpretive Data Heparin therapeutic range: 66.0 - 100.0 seconds. Range based on correlation with therapeutic heparin activity range of 0.3 - 0.7 Units/mL. Current interpretive data was last revised on 2023. Blood 01/31/2025 6:15 AM CDT 01/31/2025 6:40 AM CDT Rabia Becerra MICA LAYER LAB BLOOD ORDERABLES Gale l Result Performing Organization Address [facility] de Phone Number [facility] [address] [address] [place] [address] * Protime-INR (01/31/2025 6:15 AM CDT) PT 12.9 9.7 - 13.0 sec INR 1.19 0.90 - 1.20 [facility] Comment: Interpretive data Oral anticoagulant therapeutic ranges: Venous thromboembolism prophylaxis or treatment: 2.0-3.0 CARDIOLOGY Standard range: 2.0-3.0 High-intensity range: 2.5-3.5 Refer to indication-specific guidelines for appropriate target ranges for prosthetic heart valve replacement. Current interpretive data was last revised on 2019. Blood 01/31/2025 6:15 AM CDT 01/31/2025 6:40 AM CDT us Rabia Becerra MICA LAYER LAB BLOOD ORDERABLES Gale l Result Performing Organization Address City/[facility]/ZIP Co de Phone Number AYAKA HARRIS [address] [place] [address] * (ABNORMAL) CBC without differential (01/31/2025 6:15 [...] BLOOD ORDERABLES Final Res ult AYAKA HARRIS [address] Department of Laboratories [place], [place] [id number] * (ABNORMAL) Basic metabolic panel (01/31/2025 6:15 AM CDT) Sodium 133(L) 135 - 145 mmol/L Potassium, pl 4.1 3.3 - 4.9 mmol/L [facility] Chloride 98 97 - 110 mmol/L [facility] CO2 27 22 - 32 mmol/L [facility] Anion gap 8 2 - 15 mmol/L [facility] BUN 25 6 - 25 mg/dL [facility] Creatinine 0.86 0.80 - 1.30 mg/dL [facility] Glucose 103 70 - 199 mg/dL [facility] Comment: Interpretive Data Fasting glucose >/= [...] 2022. Calcium 8.4(L) 8.5 - 10.3 mg/dL [facility] Blood 01/31/2025 6:15 AM CDT 01/31/2025 6:40 AM CDT us Kasia Maldonado MD LAB BLOOD ORDERABLES Final Res ult [facility] [address] Department [place] [address] * XR Chest 1 View - Portable - in AM (01/31/2025 4:18 AM CDT) Anatomical Region Laterality Modality Body, Chest N/A Computed Radiogr aphy 01/31/2025 8:18 AM CDT Impressions 01/31/2025 8:18 AM CDT No failure. Electronically signed by: Matthew Mroe M.D. Narrative 01/31/2025 8:18 AM CDT EXAMINATION: XR CHEST 1 VIEW HISTORY: The patient is a 74-year-old male who has had cardiac surgery. Comparison made with the previous study dated 01/30/2025. TECHNIQUE: AP portable view of the chest. FINDINGS: Cardiomegaly with aortic atherosclerosis. No failure. No active infiltrate. The tip of the retracted [place] catheter is in the distal superior vena cava. Procedure Note Matthew More MD - 01/31/2025 EXAMINATION: XR CHEST 1 VIEW HISTORY: The patient is a 74-year-old male who has had cardiac surgery. Comparison made with the previous study dated 01/30/2025. TECHNIQUE: AP portable view of the chest. FINDINGS: Cardiomegaly with aortic atherosclerosis. No failure. No active infiltrate. The tip of the retracted [place] catheter is in the distal superior vena [...] infiltrate. The distal tip of a retracted [place] catheter is in the distal superior vena cava. Procedure Note Matthew More MD - 01/30/2025 EXAMINATION: XR CHEST 1 VIEW HISTORY: The patient is a 74-year-old male who has had cardiac surgery. Comparison made with the previous study dated 01/29/2025 TECHNIQUE: AP portable view of the chest. FINDINGS: Cardiomegaly with aortic atherosclerosis. No failure. No active infiltrate. The distal tip of a retracted [place] catheter is in the distal superior vena [...] MD LAB BLOOD ORDERABLES Final Res ult [facility] [address] Department [place] [address] * (ABNORMAL) CBC without differential (01/30/2025 5:00 AM CDT) Pathologist [facility] [place] WBC 12.79(H) 3.80 - 9.90 K/cumm Hgb 8.6(L) 13.0 - 17.5 g/dL [facility] Hct 26.1(L) 38.9 - 50.3 % [facility] Plt 192 150 - 400 K/cumm [facility] MPV 9.7 9.1 - 12.3 fL [facility] RBC 2.73(L) 4.30 - 5.80 M/cumm CERNER [...] MD LAB BLOOD ORDERABLES Final Res ult [facility] [address] Department [place] [address] * (ABNORMAL) Basic metabolic panel (01/30/2025 5:00 AM CDT) Sodium 132(L) 135 - 145 mmol/L Potassium, pl 4.2 3.3 - 4.9 mmol/L [facility] Chloride 98 97 - 110 mmol/L [facility] CO2 26 22 - 32 mmol/L [facility] Anion gap 8 2 - 15 mmol/L [facility] BUN 30(H) 6 - 25 mg/dL [facility] Creatinine 0.85 0.80 - 1.30 mg/dL [facility] Glucose 113 70 - 199 mg/dL [facility] Comment: Interpretive Data Fasting glucose >/= [...] 2022. Calcium 8.4(L) 8.5 - 10.3 mg/dL [facility] Blood 01/30/2025 5:00 AM CDT 01/30/2025 5:33 AM CDT Kasia Maldonado MD LAB BLOOD ORDERABLES Final Res ult Performing Organization Address [facility] Co de Phone Number AYAKA HARRIS [address] [facility] [place] [address] * POCT glucose (01/30/2025 3:39 AM CDT) Glucose, POC 132 70 - 199 mg/dL POC Performer [id number] [facility] Blood 01/30/2025 3:39 AM CDT 01/30/2025 3:39 AM CDT Kasia Maldonado MD LAB POCT ORDERABLES - DEVICE F inal Result Performing Organization Address [facility] Co de Phone Number AYAKA HARRIS [address] [address] [place] [address] * POCT glucose (01/29/2025 9:27 PM CDT) Glucose, POC 139 70 - 199 mg/dL POC Performer [id number] [facility] Blood 01/29/2025 9:27 PM CDT 01/29/2025 9:27 PM CDT Kasia Maldonado MD LAB POCT ORDERABLES - DEVICE F inal Result Performing Organization Address [facility] Co de Phone Number AYAKA HARRSI [address] [facility] [place] [address] * POCT glucose (01/29/2025 7:52 AM CDT) Glucose, POC 132 70 - 199 mg/dL POC Performer [id number] [facility] Blood 01/29/2025 7:52 AM CDT 01/29/2025 7:52 AM CDT Kasia Maldonado MD LAB POCT ORDERABLES - DEVICE F inal Result AYAKA [address] [facility] Department [place] [address] * XR Chest 1 View [...] MD LAB BLOOD ORDERABLES Final Res ult [facility] [address] Department [place] [address] * (ABNORMAL) CBC without differential (01/29/2025 3:08 AM CDT) WBC 15.72(H) 3.80 - 9.90 K/cumm Hgb 8.8(L) 13.0 - 17.5 g/dL [facility] Hct 26.6(L) 38.9 - 50.3 % [facility] Plt 155 150 - 400 K/cumm [facility] MPV 10.2 9.1 - 12.3 fL [facility] RBC 2.80(L) 4.30 - 5.80 M/cumm [facility] MCV 95.0 81.3 - 96.4 fL [facility] MCH 31.4 27.1 - 33.3 pg [facility] MCHC 33.1 32.3 - 35.7 g/dL [facility] RDW CV 14.0 11.1 - 14.9 % [facility] RDW SD 49.0(H) 35.7 - 48.1 fL [facility] NRBC abs 0.00 0.00 - 0.01 K/cumm [facility] Blood 01/29/2025 3:08 AM CDT 01/29/2025 4:52 AM CDT Kasia Maldonado MD LAB BLOOD ORDERABLES Final Res ult Performing Organization Address City/[facility]/ZIP Co de Phone Number AYAKA [address] [place] [address] * (ABNORMAL) Basic metabolic panel (01/29/2025 3:08 AM CDT) Sodium 138 135 - 145 mmol/L Potassium, pl 3.5 3.3 - 4.9 mmol/L [facility] Chloride 99 97 - 110 mmol/L [facility] CO2 27 22 - 32 mmol/L [facility] Anion gap 12 2 - 15 mmol/L [facility] BUN 28(H) 6 - 25 mg/dL [facility] Creatinine 0.90 0.80 - 1.30 mg/dL [facility] Glucose 120 70 - 199 mg/dL [facility] Comment: Interpretive Data Fasting glucose >/= [...] 2022. Calcium 8.4(L) 8.5 - 10.3 mg/dL [facility] Blood 01/29/2025 3:08 AM CDT 01/29/2025 4:51 AM CDT Kasia Maldonado MD LAB BLOOD ORDERABLES Final Res ult Performing Organization Address City/[facility]/ZIP Co de Phone Number AYAKA HARRIS [address] Department [place] [address] * POCT glucose (01/28/2025 9:15 PM CDT) Glucose, POC 175 70 - 199 mg/dL POC Performer [id number] [facility] Blood 01/28/2025 9:15 PM CDT 01/28/2025 9:15 PM CDT Kasia Maldonado MD LAB POCT ORDERABLES - DEVICE F inal Result Performing Organization Address [facility] de Phone Number AYAKA HARRIS [address] [place] [address] * ECG 12 lead (01/28/2025 5:33 PM CDT) 01/28/2025 5:33 PM CDT Narrative [facility] - 01/29/2025 6:50 AM CDT Vent Rate: 119 bpm RR Interval: 503 msec WA Interval: 0 msec QRS Duration: 93 msec QT Interval: 318 msec QTC Interval: 389 msec P-R-T Crescent: 0 - -9 - 8 degrees IMPRESSION: ATRIAL FIBRILLATION WITH RAPID VENTRICULAR RESPONSE LOW QRS VOLTAGE IN PRECORDIAL LEADS ABNORMAL RHYTHM ECG Electronically Signed By: Dr. Rivas Lehman [facility] Kasia Maldonado MD ECG ORDERABLES Final Result Performing Organization Address [facility] Phone Number [facility] [employer] [facility] * POCT glucose (01/28/2025 4:30 PM CDT) [facility] Glucose, POC 145 70 - 199 mg/dL POC Performer [id number] [facility] Blood 01/28/2025 4:30 PM CDT 01/28/2025 4:30 PM CDT Kasia Maldonado MD LAB POCT ORDERABLES - DEVICE F inal Result Performing Organization Address [facility] de Phone Number AYAKA HARRIS [address] [address] [place] [address] * Critical Care (01/28/2025 4:27 PM CDT) [...] plan with the ICU team and other medical/political consultant staff, making frequent assessments and decisions [...] 145 70 - 199 mg/dL POC Performer [id number] AYAKA HARRIS Blood 01/28/2025 11:4 0 AM CDT 01/28/2025 11:40 AM CDT Kasia Maldonado MD LAB POCT ORDERABLES - DEVICE F inal Result AYAKA [address] Department [place] [address] * POCT glucose (01/28/2025 6:50 AM CDT) Glucose, POC 105 70 - 199 mg/dL POC Performer [id number] [facility] Blood 01/28/2025 6:50 AM CDT 01/28/2025 6:50 AM CDT Kasia Maldonado MD LAB POCT ORDERABLES - DEVICE F inal Result Performing Organization Address [facility] Co de Phone Number [facility] [address] [place] [address] * POCT glucose (01/28/2025 5:44 AM CDT) [facility] Glucose, POC 117 70 - 199 mg/dL POC Performer [id number] [facility] Blood 01/28/2025 5:44 AM CDT 01/28/2025 5:44 AM CDT Kasia Maldonado MD LAB POCT ORDERABLES - DEVICE F inal Result Performing Organization Address [facility] Phone Number AYAKA [address] [place] [address] * XR Chest 1 View - Portable [...] in place. The tip of a retracted [place] catheter is in the superior vena cava. [...] in place. The tip of a retracted [place] catheter is in the superior vena cava. [...] ORDERABLES Final Res ult Performing Organization Address [facility] Co de Phone Number AYAKA [address] [place] [address] * (ABNORMAL) Calcium, ionized, whole blood (01/28/2025 4:37 AM CDT) Ca, ionized, bld 4.33(L) 4.50 - 5.10 mg/dL Blood 01/28/2025 4:37 AM CDT 01/28/2025 4:44 AM CDT Kasia Maldonado MD LAB BLOOD ORDERABLES Final Res ult Performing Organization Address City/[facility] Co de Phone Number AYAKA HARRIS [address] [place] [address] * eGFR (01/28/2025 4:37 AM CDT) eGFR [...] MD LAB BLOOD ORDERABLES Final Res ult [facility] [address] Department [place] [address] * (ABNORMAL) CBC without differential (01/28/2025 4:37 AM CDT) WBC 17.78(H) 3.80 - 9.90 K/cumm Hgb 8.8(L) 13.0 - 17.5 g/dL [facility] Hct 26.6(L) 38.9 - 50.3 % [facility] Plt 126(L) 150 - 400 K/cumm [facility] MPV 9.8 9.1 - 12.3 fL [facility] RBC 2.81(L) 4.30 - 5.80 M/cumm [facility] MCV 94.7 81.3 - 96.4 fL CERNER [...] ORDERABLES Final Res ult Performing Organization Address City/[facility]/ZIP Co de Phone Number [facility] [address] [place] [address] * Magnesium (01/28/2025 4:37 AM CDT) [facility] Magnesium 2.1 1.4 - 2.5 mg/dL Blood 01/28/2025 4:37 AM CDT 01/28/2025 4:45 AM CDT Kasia Maldonado MD LAB BLOOD ORDERABLES Final Res ult Performing Organization Address [facility] Co de Phone Number [facility] [address] [place] [address] * (ABNORMAL) Basic metabolic panel (01/28/2025 4:37 AM CDT) Pathologist [facility] [place] Sodium 136 135 - 145 mmol/L Potassium, pl 3.9 3.3 - 4.9 mmol/L [facility] Chloride 102 97 - 110 mmol/L [facility] CO2 23 22 - 32 mmol/L [facility] Anion gap 11 2 - 15 mmol/L [facility] BUN 22 6 - 25 mg/dL [facility] Creatinine 0.87 0.80 - 1.30 mg/dL [facility] Glucose 114 70 - 199 mg/dL [facility] Comment: Interpretive Data Fasting glucose >/= [...] ORDERABLES Final Res ult Performing Organization Address [facility] de Phone Number AYAKA HARRIS [address] [facility] [place] [address] * POCT glucose (01/28/2025 4:34 AM CDT) Glucose, POC 120 70 - 199 mg/dL POC Performer [id number] [facility] Blood 01/28/2025 4:34 AM CDT 01/28/2025 4:34 AM CDT Kasia Maldonado MD LAB POCT ORDERABLES - DEVICE F inal Result Performing Organization Address [facility] de Phone Number [facility] [address] [address] [place] [address] * POCT glucose (01/28/2025 3:34 AM CDT) Glucose, POC 122 70 - 199 mg/dL POC Performer [id number] [facility] Blood 01/28/2025 3:34 AM CDT 01/28/2025 3:34 AM CDT Kasia Maldonado MD LAB POCT ORDERABLES - DEVICE F inal Result AYAKA HARRIS [address] [address] [place] [address] * POCT glucose (01/28/2025 2:36 AM CDT) Glucose, POC 98 70 - 199 mg/dL POC Performer [id number] [facility] Blood 01/28/2025 2:36 AM CDT 01/28/2025 2:36 AM CDT Kasia Maldonado MD LAB POCT ORDERABLES - DEVICE F inal Result Performing Organization Address [facility] Co de Phone Number AYAKA HARRIS [address] [place] [address] * POCT glucose (01/28/2025 1:23 AM CDT) Glucose, POC 81 70 - 199 mg/dL POC Performer [id number] [facility] Blood 01/28/2025 1:23 AM CDT 01/28/2025 1:23 AM CDT Kasia Maldonado MD LAB POCT ORDERABLES - DEVICE F inal Result Performing Organization Address [facility] Co de Phone Number [facility] H[facility] [address] [address] [place] [address] * POCT glucose (01/28/2025 12:15 AM CDT) Glucose, POC 103 70 - 199 mg/dL POC Performer [id number] [facility] Blood 01/28/2025 12:1 5 AM CDT 01/28/2025 12:15 AM CDT Kasia Maldonado MD LAB POCT ORDERABLES - DEVICE F inal Result Performing Organization Address [facility] Co de Phone Number AYAKA HARRIS [address] [address] [place] [address] * POCT glucose (01/27/2025 11:22 PM CDT) Glucose, POC 121 70 - 199 mg/dL POC Performer [id number] [facility] Blood 01/27/2025 11:2 2 PM CDT 01/27/2025 11:22 PM CDT Kasia Maldonado MD LAB POCT ORDERABLES - DEVICE F inal Result Performing Organization Address City/[facility] Co de Phone Number AYAKA HARRIS [address] [address] [facility] [place] [address] * POCT glucose (01/27/2025 10:19 PM CDT) Glucose, POC 129 70 - 199 mg/dL POC Performer [id number] [facility] Blood 01/27/2025 10:1 9 PM CDT 01/27/2025 10:19 PM CDT Kasia Maldonado MD LAB POCT ORDERABLES - DEVICE F inal Result Performing Organization Address [facility] Co de Phone Number AYAKA HARRIS [address] [address] [facility] [place] [address] * POCT glucose (01/27/2025 9:15 PM CDT) Glucose, POC 87 70 - 199 mg/dL POC Performer [id number] [facility] Blood 01/27/2025 9:15 PM CDT 01/27/2025 9:15 PM CDT Kasia Maldonado MD LAB POCT ORDERABLES - DEVICE F inal Result Performing Organization Address [facility] Co de Phone Number AYAKA HARRIS [address] [address] [facility] [place] [address] * POCT glucose (01/27/2025 8:04 PM CDT) Glucose, POC 116 70 - 199 mg/dL POC Performer [id number] AYAKA Blood 01/27/2025 8:04 PM CDT 01/27/2025 8:04 PM CDT us Kasia Maldonado MD LAB POCT ORDERABLES - DEVICE F inal Result Performing Organization Address [facility] Co de Phone Number [facility] [address] [place] [address] * POCT glucose (01/27/2025 7:12 PM CDT) Glucose, POC 138 70 - 199 mg/dL POC Performer [id number] [facility] Blood 01/27/2025 7:12 PM CDT 01/27/2025 7:12 PM CDT Kasia Maldonado MD LAB POCT ORDERABLES - DEVICE F inal Result Performing Organization Address [facility] Co de Phone Number AYAKA [address] [address] [place] [address] * eGFR (01/27/2025 6:53 PM CDT) eGFR [...] ORDERABLES Final Res ult Performing Organization Address [facility]/ZIP Co de Phone Number AYAKA [address] Department [employer] [place], [place] [id number] * (ABNORMAL) CBC without differential (01/27/2025 6:53 [...] BLOOD ORDERABLES Final Res ult AYAKA HARRIS [address] Department [employer] [place], [place] [id number] * (ABNORMAL) Basic metabolic panel (01/27/2025 6:53 [...] 2022. Calcium 8.4(L) 8.5 - 10.3 mg/dL [facility] Blood 01/27/2025 6:53 PM CDT 01/27/2025 6:59 PM CDT Kasia Maldonado MD LAB BLOOD ORDERABLES Final Res ult Performing Organization Address [facility] Co de Phone Number AYAKA HARRIS [address] [place] [address] * POCT glucose (01/27/2025 6:04 PM CDT) Glucose, POC 117 70 - 199 mg/dL POC Performer [id number] [facility] Blood 01/27/2025 6:04 PM CDT 01/27/2025 6:04 PM CDT Kasia Maldonado MD LAB POCT ORDERABLES - DEVICE F inal Result Performing Organization Address City/[facility] Co de Phone Number [facility]IMBER[facility] [address] [place] [address] * Critical Care (01/27/2025 5:45 PM CDT) [...] plan with the ICU team and other medical/political consultant staff, making frequent assessments and decisions [...] 166 70 - 199 mg/dL POC Performer [id number] AYAKA HARRIS Blood 01/27/2025 4:05 PM CDT 01/27/2025 4:05 PM CDT Kasia Maldonado MD LAB POCT ORDERABLES - DEVICE F inal Result AYAKA HARRIS [address] Department [place] [address] * POCT glucose (01/27/2025 2:02 PM CDT) Glucose, POC 101 70 - 199 mg/dL POC Performer [id number] [facility] Blood 01/27/2025 2:02 PM CDT 01/27/2025 2:02 PM CDT Kasia Maldonado MD LAB POCT ORDERABLES - DEVICE F inal Result Performing Organization Address [facility] Co de Phone Number AYAKA [address] [place] [address] * POCT glucose (01/27/2025 12:17 PM CDT) Glucose, POC 83 70 - 199 mg/dL POC Performer [id number] [facility] Blood 01/27/2025 12:1 7 PM CDT 01/27/2025 12:17 PM CDT Kasia Maldonado MD LAB POCT ORDERABLES - DEVICE F inal Result Performing Organization Address [facility] Co de Phone Number [facility] HARRIS [address] [facility] [place] [address] * POCT glucose (01/27/2025 10:58 AM CDT) Glucose, POC 132 70 - 199 mg/dL POC Performer [id number] [facility] Blood 01/27/2025 10:5 8 AM CDT 01/27/2025 10:58 AM CDT Kasia Maldonado MD LAB POCT ORDERABLES - DEVICE F inal Result Performing Organization Address [facility]/ZIP Co de Phone Number AYAKA HARRIS [address] [address] [facility] [place] [address] * ECG 12 lead (01/27/2025 10:50 AM CDT) 01/27/2025 10:5 0 AM CDT Narrative [facility] - 01/27/2025 11:39 AM CDT Vent Rate: 99 bpm RR Interval: 602 msec WA Interval: 163 msec QRS Duration: 93 msec QT Interval: 356 msec QTC Interval: 412 msec P-R-T Crescent: 53 - -7 - -1 degrees IMPRESSION: SINUS RHYTHM WITH artifact BORDERLINE ECG Electronically Signed By: Dr. Rivas Lehman [facility] Kasia Maldonado MD ECG ORDERABLES Final Result Performing Organization Address [facility] Co de Phone Number [facility] * POCT glucose (01/27/2025 7:40 AM CDT) Glucose, POC 111 70 - 199 mg/dL POC Performer [id number] [facility] Blood 01/27/2025 7:40 AM CDT 01/27/2025 7:40 AM CDT Kasia Maldonado MD LAB POCT ORDERABLES - DEVICE F inal Result Performing Organization Address [facility] Phone Number WOODROWBENITA [address] [address] [place] [address] * POCT glucose (01/27/2025 6:27 AM CDT) Glucose, POC 127 70 - 199 mg/dL POC Performer [id number] [facility] Blood 01/27/2025 6:27 AM CDT 01/27/2025 6:27 AM CDT Kasia Maldonado MD LAB POCT ORDERABLES - DEVICE F inal Result Performing Organization Address [facility] Co de Phone Number AYAKA [address] [address] [place] [address] * POCT glucose (01/27/2025 5:16 AM CDT) Glucose, POC 126 70 - 199 mg/dL POC Performer [id number] AYAKA HARRIS Blood 01/27/2025 5:16 AM CDT 01/27/2025 5:16 AM CDT Kasia Maldonado MD LAB POCT ORDERABLES - DEVICE F inal Result AYAKA HARRIS [address] [address] [facility] [place] [address] * XR Chest 1 View - Portable [...] tubes. Left thoracostomy tube mediastinal drain and [place] catheter remain in place. Mild cardiomegaly is seen without failure. No pneumothorax. Procedure Note Sunil Luna MD - 01/27/2025 EXAMINATION: XR CHEST 1 VIEW DATE: 01/27/2025 4:10 AM HISTORY: Cardiac surgery FINDINGS:Compared with the study of the previous day, the patient is extubated with removal of endotracheal and nasogastric tubes. Left thoracostomy tube mediastinal drain and [place] catheter remain in place. Mild cardiomegaly is [...] ORDERABLES Final Res ult Performing Organization Address [facility] Co de Phone Number AYAKA HARRIS [address] [address] [employer] [place], [place] [id number] * eGFR (01/27/2025 4:05 AM CDT) eGFR [...] ORDERABLES Final Res ult Performing Organization Address [facility]/ZIP Co de Phone Number AYAKA HARRIS [address] [address] Department [employer] [place], [place] [id number] * (ABNORMAL) Differential, auto (01/27/2025 4:05 AM CDT) Neutrophil abs 12.90(H) 1.50 - 6.50 K/cumm Imm gran abs 0.10 0.00 - 0.10 K/cumm [facility] Lymphocyte abs 0.80 0.80 - 3.30 K/cumm [facility] Monocyte abs 1.45(H) 0.20 - 0.80 K/cumm CERNER Eosinophil abs 0.00 0.00 - 0.50 K/cumm CERNER Basophil abs 0.03 0.00 - 0.10 K/cumm [facility] Neutrophil pct 84.4 % CERNER Comment: Interpretive [...] ORDERABLES Final Res ult Performing Organization Address [facility] Co de Phone Number AYAKA HARRIS [address] [address] [facility] [place] [address] * (ABNORMAL) CBC with auto differential (01/27/2025 4:05 AM CDT) WBC 15.28(H) 3.80 - 9.90 K/cumm Hgb 9.2(L) 13.0 - 17.5 g/dL [facility] Hct 27.6(L) 38.9 - 50.3 % [facility] Plt 139(L) 150 - 400 K/cumm [facility] MPV 9.6 9.1 - 12.3 fL [facility] RBC 2.88(L) 4.30 - 5.80 M/cumm [facility] MCV 95.8 81.3 - 96.4 fL [facility] CH MCH 31.9 27.1 - 33.3 pg [facility] MCHC 33.3 32.3 - 35.7 g/dL [facility] CH RDW CV 13.7 11.1 - 14.9 % [facility] CH RDW SD 48.3(H) 35.7 - 48.1 fL [facility] NRBC abs 0.00 0.00 - 0.01 K/cumm [facility] CH Blood 01/27/2025 4:05 AM CDT 01/27/2025 4:10 AM CDT Kasia Maldonado MD LAB BLOOD ORDERABLES Final Res ult Performing Organization Address City/[facility]/ZIP Co de Phone Number AYAKA HARRIS [address] [address] [employer] [place], [place] [id number] * (ABNORMAL) Magnesium (01/27/2025 4:05 AM CDT) Magnesium 2.8(H) 1.4 - 2.5 mg/dL Blood 01/27/2025 4:05 AM CDT 01/27/2025 4:10 AM CDT Kasia Maldonado MD LAB BLOOD ORDERABLES Final Res ult AYAKA HARRIS [address] [address] [place] [address] * (ABNORMAL) Basic metabolic panel (01/27/2025 4:05 AM CDT) Sodium 140 135 - 145 mmol/L Potassium, pl 4.0 3.3 - 4.9 mmol/L [facility] Chloride 108 97 - 110 mmol/L [facility] CO2 22 22 - 32 mmol/L [facility] Anion gap 10 2 - 15 mmol/L [facility] BUN 19 6 - 25 mg/dL [facility] Creatinine 0.75(L) 0.80 - 1.30 mg/dL [facility] Glucose 114 70 - 199 mg/dL [facility] Comment: Interpretive Data Fasting glucose >/= [...] 2022. Calcium 8.2(L) 8.5 - 10.3 mg/dL [facility] Blood 01/27/2025 4:05 AM CDT 01/27/2025 4:10 AM CDT Kasia Maldonado MD LAB BLOOD ORDERABLES Final Res ult Performing Organization Address City/[facility]/ZIP Co de Phone Number AYAKA HARRIS [address] [address] [place] [address] * POCT glucose (01/27/2025 4:03 AM CDT) Glucose, POC 122 70 - 199 mg/dL POC Performer [id number] [facility] Blood 01/27/2025 4:03 AM CDT 01/27/2025 4:03 AM CDT Kasia Maldonado MD LAB POCT ORDERABLES - DEVICE F inal Result Performing Organization Address [facility] Co de Phone Number AYAKA HARRIS [address] [address] [facility] [place] [address] * POCT glucose (01/27/2025 3:02 AM CDT) Glucose, POC 112 70 - 199 mg/dL POC Performer [id number] [facility] Blood 01/27/2025 3:02 AM CDT 01/27/2025 3:02 AM CDT Kasia Maldonado MD LAB POCT ORDERABLES - DEVICE F inal Result Performing Organization Address [facility] de Phone Number AYAKA HARRIS [address] [address] [facility] [place] [address] * POCT glucose (01/27/2025 1:57 AM CDT) Glucose, POC 127 70 - 199 mg/dL POC Performer [id number] [facility] Blood 01/27/2025 1:57 AM CDT 01/27/2025 1:57 AM CDT Kasia Maldonado MD LAB POCT ORDERABLES - DEVICE F inal Result Performing Organization Address [facility] Co de Phone Number AYAKA HARRIS [address] [facility] [place] [address] * POCT glucose (01/27/2025 12:50 AM CDT) Glucose, POC 146 70 - 199 mg/dL POC Performer [id number] [facility] Blood 01/27/2025 12:5 0 AM CDT 01/27/2025 12:50 AM CDT Kasia Maldonado MD LAB POCT ORDERABLES - DEVICE F inal Result Performing Organization Address [facility] Co de Phone Number WOODROWBENITA HARRIS [address] [address] [facility] [place] [address] * Potassium, whole blood (01/27/2025 12:44 AM [...] ORDERABLES Final Res ult Performing Organization Address [facility] Co de Phone Number WOODROWBENITA HARRIS [address] [address] [place] [address] * (ABNORMAL) Hemoglobin and hematocrit (01/27/2025 12:44 AM CDT) Pathologist [facility] Hgb 9.1(L) 13.0 - 17.5 g/dL Hct 27.3(L) 38.9 - 50.3 % [facility] Blood 01/27/2025 12:4 4 AM CDT 01/27/2025 12:54 AM CDT Kasia Maldonado MD LAB BLOOD ORDERABLES Final Res ult Performing Organization Address City/[facility] Co de Phone Number WOODROWBENITA HARRIS [address] [address] [facility] [place] [address] * (ABNORMAL) Blood gas, arterial (01/27/2025 12:44 AM CDT) pH, Art 7.36 7.35 - 7.45 PCO2, Arterial 40 35 - 45 mmHg [facility] PO2, Arterial 93 83 - 108 [...] BLOOD ORDERABLES Final Res ult AYAKA HARRIS [address] [address] Department [place] [address] from Last 3 Months Insurance [facility] MEDICARE [facility] FEDERAL Advance Directives For more information, please contact: [phone] * Full Code (Latest Code Status on File) Date Activated Date Inactivated Comments 01/26/2025 4:03 PM 01/31/2025 9:06 PM Care Teams Employee Development Director Relationship Specialty Start Date End Date Shabbir White MD [address] [place] [address] PCP - General 02/07/17 Kasia Maldonado MD [address] [place] [address] Surgeon Cardiothoracic Surgery 01/31/25 Sindhu Patricio MD [address], [address] [place] [address] Consulting Physician Cardiology 01/31/25 Miscellaneous, Not In File 01/31/25
--- OUTSIDE RECORDS SUMMARY | 2025-04-28 13:29 | XMS_ITS | Encounter Summary ---
Author Organization [facility] Healthcare Address [address] [place] [address] Care Team Providers Care Harness Tier Name Role Phone Shabbir White MD Primary Care Prov ider Kasia Maldonado MD Unavailable [phone] Gera Patricio MD Unavailable Miscellaneous, Not In File Unavailable Unava ilable Encounter Details Date Type Department Care Team (Late st Contact Info) Description 04/27/2025 Telephone [facility] Medical Group Cardiology [address] [place] [address] Gera Patricio MD [address] [facility] [address] C [address] [facility] C, [address] [place] [address] Social History Tobacco Use Types Packs/Day Years Used Date Smoking Tobacco: Former Cigarettes 1 16 1 970 - 1986 Smokeless Tobacco: Never Alcohol Use Standard Drinks/Week Comments Yes 1 (1 standard drink = 0.6 oz pur e alcohol) nightly [facility] Utilities Answer Date Recorded In the past 12 months has [employer], gas, oil, or water company threatened to [...] often do you attend chur ch or anabaptist services? Never 01/31/2025 Do you belong to any clubs o r organizations such as hoahaoism groups, unions, fraternal or athletic groups, or [...] any time in the past 12 m [facility], were you homeless or living in a custodial (including now)? No 01/31/2025 Personal Safety Answer Date Recorded Have you ever been in or are you currently in a harmful physical or emotional relationship or is someone making you feel afraid or unsafe? 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 Pt would like [facility]'s recommendations as well. He states he is going on a family trip soon and wanted some reassurance. * Telephone Encounter - Pat Pham - 04/27/2025 2:13 PM CDT Pt had some chest pain a few days ago and he wants to get [facility] input because he is supposed to be [...] on filedocumented in this encounter Care Teams Harness Tier Relationship Specialty Start Date End Date Shabbir White MD [address] [place] [address] PCP - General 02/07/17 Kasia Maldonado MD [address] [place] [address] Surgeon Cardiothoracic Surgery 01/31/25 Gera Patricio MD [address] [facility] C, [address] [place] [address] Consulting Physician Cardiology 01/31/25 Miscellaneous, Not In File 01/31/25 documented as of this encounter
--- OUTSIDE RECORDS SUMMARY | 2025-04-28 13:29 | XMS_ITS | Encounter Summary ---
Author Organization [facility] Address [address] [place] [address] Care Team Providers Care Welfare Service Aide Name Role Phone Shabbir White MD Primary Care Provider [phone] Encounter Details Date Type Department Care Team (Latest Contact Info) Description 04/27/2025 Travel Social History Tobacco Use Types Packs/Day Years Used Date Smoking Tobacco: Former Cigarettes 1 20 1 966 - 1986 Smokeless Tobacco: Never Alcohol Use [...] Info) Description 05/16/2025 12:30 PM CDT Appointment [facility] [address] [place] [address] Gera Patricio MD [address] [facility] [address] [place] [address] 05/18/2025 12:30 PM CDT Appointment [facility] [address] [place] [address] Gera Patricio MD [address] [facility] [address] [place] [address] 05/19/2025 12:30 PM CDT Appointment [facility] [address] [place] [address] Gera Patricio MD [address] [place] [address] 05/23/2025 12:30 PM CDT Appointment [facility] [address] [place] [address] Gera Patricio MD [address] [facility] [address] [place] [address] 05/25/2025 12:30 PM CDT Appointment [facility] [address] [place] [address] Gera Patricio MD [address] [address] 05/26/2025 12:30 PM CDT Appointment [facility] [address] [place] [address] Gera Patricio MD [address] [facility] [address] [place] [address] 05/30/2025 12:30 PM CDT Appointment [facility] [address] [place] [address] Gera Patricio MD [address] [facility] [address] [place] [address] 06/01/2025 12:30 PM CDT Appointment [facility] [address] [place] [address] Gera Patricio MD [address] [facility] [address] [place] [address] 06/02/2025 12:30 PM CDT Appointment [facility] [address] [place] [address] Gera Patricio MD [address] C [facility] [address] [place] [id number] 06/06/2025 12:30 PM CDT Appointment [facility] [address] [place] [address] Gera Patricio MD [address] [id number] 06/08/2025 12:30 PM CDT Appointment [facility] [address] [place] [address] Gera Patricio MD [address] [facility] [address] [place] [id number] 06/09/2025 12:30 PM CDT Appointment [facility] [address] [place] [address] Gera Patricio MD [address] [facility] [address] [place] [address] 06/13/2025 12:30 PM CDT Appointment [facility] [address] [place] [address] Gera Patricio MD [address] [facility] [address] [place] [address] 06/15/2025 12:30 PM CDT Appointment [facility] [address] [place] [address] Gera Patricio MD [address] [address] 06/16/2025 12:30 PM CDT Appointment [facility] [address] [place] [address] Gera Patricio MD [address] [id number] 06/22/2025 12:30 PM CDT Appointment [facility] [address] [place] [address] Gera Patricio MD [address] [address] documented as of this encounter Visit Diagnoses Not on filedocumented in this encounter Care Teams Welfare Service Aide Relationship Specialty Start Date End Date Shabbir White MD [address] [place] [address] PCP - General 08/09/12 documented as of this encounter
--- OUTSIDE RECORDS SUMMARY | 2025-04-28 13:29 | XMS_ITS | Encounter Summary ---
Author Organization [facility] Healthcare Address [address] [place] [address] Care Team Providers Care Supervisor Fur Floor Worker Name Role Phone Shabbir White MD Primary Care Prov ider Kasia Maldonado MD Unavailable [phone] Gera Patricio MD Unavailable [phone] Miscellaneous, Not In File Unavailable Unava ilable Encounter Details Date Type Department Care Team (Late st Contact Info) Description 02/02/2025 [facility] Post Discharge Follow up phone call [facility] [address] [place] [address] Evangelina Khan Social History Tobacco Use Types Packs/Day Years Used Date Smoking Tobacco: Former Cigarettes 1 16 1 970 - 1986 Smokeless Tobacco: Never Alcohol Use Standard Drinks/Week Comments Yes 1 (1 standard drink = 0.6 oz pur e alcohol) nightly [facility] Utilities Answer Date Recorded In the past 12 months has [employer], gas, oil, or water [employer] threatened to shut off services in your [...] week 01/31/2025 How often do you attend [facility] or nondenominational services? Never 01/31/2025 Do you belong to any clubs o r organizations such as presybeterian groups, unions, fraternal or athletic groups, or [...] any time in the past 12 m [facility], were you homeless or living in a snf (including now)? No 01/31/2025 Personal Safety Answer Date Recorded Have you ever been in or are you currently in a harmful physical or emotional relationship or is someone making you feel afraid or unsafe? 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 Gender Identity Not on file Sexual Orientation Not on file documented as of this encounter Plan of Treatment Not on file documented as of this encounter Visit Diagnoses Not on filedocumented in this encounter Care Teams Supervisor Fur Floor Worker Relationship Specialty Start Date End Date Shabbir White MD [address] [place] [address] PCP - General 02/07/17 Kasia Maldonado MD [address] [place] [address] Surgeon Cardiothoracic Surgery 01/31/25 Gera Patricio MD [address] [place] [address], [address] [place] [address] Consulting Physician Cardiology 01/31/25 Miscellaneous, Not In File 01/31/25 documented as of this encounter
--- OUTSIDE RECORDS SUMMARY | 2025-04-28 13:29 | XMS_ITS | Clinical Summary ---
Author Organization [facility] Address [address], [address] [address] Phone Care Team Providers Care Yacht Rigger Name Role Phone Shabbir White MD Primary Care Provider + Quique Smiley DO Unavailable [phone] Allergies No known active allergies Medications [...] Most Recently Relevant to Health Maintenance Insurance [facility] Care Teams Yacht Rigger Relationship Specialty Start Date End Date Shabbir White MD PCP - General Family Medicine 08/16/16 Quique Smiley DO Gastroenterology 08/16/16
--- OUTSIDE RECORDS SUMMARY | 2025-04-28 13:29 | XMS_ITS | Encounter Summary ---
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 Gender Identity Not on file Sexual Orientation Not on file documented as of this encounter Plan of Treatment Not on file documented as of this encounter Visit Diagnoses Not on filedocumented in this encounter Care Teams Screedman/Laborer Relationship Specialty Start Date End Date Shabbir White MD [address] [place] [address] PCP - General 02/07/17 Kasia Maldonado MD [address] [place] [address] Surgeon Cardiothoracic Surgery 01/31/25 Gera Patricio MD [address] [facility] [address], [address] [place] [address] Consulting Physician Cardiology 01/31/25 Miscellaneous, Not In File 01/31/25 documented as of this encounter
--- OUTSIDE RECORDS SUMMARY | 2025-04-28 13:29 | XMS_ITS | Referral Summary ---
Author Organization [facility] C Address [address] [facility] [place] [address] Care Team Providers Care Hospice Rn Name Role Phone Shabbir White MD Primary Care Prov ider Kasia Maldonado MD Unavailable [phone] Sindhu Patricio MD Unavailable [phone] Miscellaneous, Not In File Unavailable Unava ilable Encounters Date Type Department Care Team Description 04/27/2025 Telephone [facility] Cardiology [address] [facility] [address] [place] [address] Sindhu Patricio MD 04/16/2025 Telephone [facility] [address] [place] [address] 1st [place] [phone] Mike Xavier MD 04/13/2025 Orders Only [facility] [address] [place] [address] Eufemia Shen MD 04/06/2025 Results Follow-Up [facility] Cardiology [address] [facility] [address] [phone] Sindhu Patricio MD US Arterial Doppler Lower Extremity Bilateral 04/05/2025 1:00 PM CDT Ancillary Procedure [facility] Vascular and Vein Surgery at [address] [place] [address] Claudication 04/01/2025 Telephone [facility] Vascular and Vein Surgery at [address] [place] [address] Mehul Afia 03/31/2025 3:00 PM CDT Office Visit [facility] Cardiology at [address] [place] [phone] Sindhu Patricio MD 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 (Primary Dx); Essential hypertension; History of atrial fibrillation; History of PSVT (paroxysmal supraventricular tachycardia); Hyperlipidemia LDL goal <70; Claudication 03/22/2025 Telephone [facility] Cardiology [address] [place] [address] [address] [place] [address] Sindhu Patricio MD 03/16/2025 1:44 PM CDT - 03/16/2025 11:59 PM CDT Hospital Encounter [facility] [address] [place] [address] Temporal pain Discharge Disposition: Discharge to home or self care 03/03/2025 2:00 PM CDT Office Visit [facility] [address] [facility] [address] [place] [address] Kasia Maldonado MD S/P CABG x 4 (Primary Dx) 02/28/2025 Orders Only [facility] Health Information Management 1 [place] [address] Scanning, Provider 02/25/2025 Telephone [facility] Cardiology [address] [facility] [address] [place] [address] Meghan Camejo NP 02/25/2025 2:30 PM CDT Office Visit [facility] Cardiology [address] [place] [address] [address] [place] [address] Meghan Camejo NP Coronary artery disease involving [place]. croix coronary artery of [place] 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 (Primary Dx); Corneal scar 02/16/2025 1:00 PM CDT Imaging Exam [facility] [address] [place] [address] 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 croix coronary artery of [place] croix heart without angina pectoris 02/10/2025 9:30 AM CDT Office Visit [facility] [address] [place] [address] [address] [place] [address] Jordan Escalera NP Coronary artery disease of [place]. croix heart with stable angina pectoris, unspecified vessel or lesion type (Primary Dx) 02/07/2025 Orders Only [facility] [address] [place] [address] [address] [place] [address] Jordan Escalera NP Coronary artery disease involving [facility]. croix coronary artery of [place] croix heart without angina pectoris (Primary Dx) 02/07/2025 Documentation [facility] [address] [place] [address] [address] [place] [address] Jordan Escalera NP 02/04/2025 1:51 PM CDT - 02/04/2025 11:59 PM CDT Hospital Encounter [facility] Diagnostic Imaging [address] [place] [address] Coronary artery disease involving [place] croix coronary artery of [place] croix heart without angina pectoris Discharge Disposition: Discharge to home or self care 02/04/2025 Orders Only [facility] [address] [place] [address] [place] [address] Jordan Escalera NP 02/04/2025 Orders Only [facility] [address] [place] [address] [place] [address] Jordan Escalera NP Coronary artery disease involving st. croix coronary artery of [place] croix heart without angina pectoris (Primary Dx) 02/04/2025 10:25 AM CDT Lab [facility] Lab [address] [place] [address] 02/04/2025 10:10 AM CDT Lab [facility] [address] [place] [address] Burning with urination 02/04/2025 Orders Only [facility] [address] [place] [address] Jordan Escalera NP Burning with urination (Primary Dx) 02/03/2025 Documentation [facility] [address] [place] [address] Rabia Becerra NP 02/02/2025 [facility] Post Discharge Follow up phone call [address] [address] Evangelina Khan 01/31/2025 Telephone [facility] Cardiology [address] [place] [address] [address] [address] Alaina Henderson NP 01/26/2025 7:23 AM CDT - 01/31/2025 4:56 PM CDT Hospital Encounter [address] [address] Kasia Maldonado MD Coronary artery disease of bypass graft of [place] 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 croix heart with stable angina pectoris, unspecified vessel [...] now. Assessment & Plan (09/09/2023 1:08 PM CUSTOMER SERVICE TELLER): 2/2 RK OU, patient having issues with I/R and having other health issues Would like to return lenses and try again at another time. Will return Hancock lenses and RTC for refit in future [...] next exam OS RTC for dispense reF# [id number] Assessment & Plan (05/23/2023 4:00 PM CDT): 2/2 RK OU, possible OHx of amblyopia OD; patient states that OD (even prior to RK) has never seen as well as OS Educated patient on options, corneal GP (would need reverse kate design) vs scleral Patient concerned about dryness and comfort, will go ahead with scleral fit today Today with Hancock 16.0, excellent comfort OU: OD: 450um central, minimal limbal. Slighlt toe impingement 360, better periphery with flat lens OS: 450um central, minimal limbal. Slight toe impitngement 360, better periphery with flat and better vision with FSE2 Flat periphery / FSE2 / aim for 280um central clearance with adjustments today BCVA 20/30- OD; 20/25-- OS RTC for dispense Ref# [id number] Assessment & Plan (12/11/2022 4:19 PM CUSTOMER SERVICE TELLER): Patient is s/p 1 cut RK OU and has to change between several pairs of glasses through the day due to fluctuations in refractive error. Pt has been told about scleral lenses in the past and is interested in trying them. Will consult with Dr. Rivera and schedule and evaluation. Retinal drusen of both eyes 06/05/2022 Assessment & Plan (12/11/2022 4:19 PM CUSTOMER SERVICE TELLER): Mild and stable. F/u annually. Assessment & [...] CPM. Assessment & Plan (11/28/2021 1:23 PM CUSTOMER SERVICE TELLER): Continue ATs prn. Assessment & Plan (05/30/2021 2:28 PM CDT): PF ATs prn. Assessment & Plan (01/31/2021 1:46 PM CDT): Well controlled with artificial tears. CPM Assessment & Plan (12/13/2020 1:16 PM CUSTOMER SERVICE TELLER): Pt feels his symptoms are well controlled [...] 10/26/2019 Assessment & Plan (10/29/2019 7:17 PM CUSTOMER SERVICE TELLER): Chest pain is atypical in that it occurs only sometimes in his in various locations of his chest. I am suspicious that it is musculoskeletal, but would recommend a stress test. As his EKG is normal, imaging is not required. Biceps tendinitis of right upper extremity 11/25 Overview (11/25/2018): Added automatically from request for surgery [id number] Incomplete tear of right rotator cuff 11/25/2018 Overview (11/25/2018): Added automatically from request for surgery [id number] Open angle with borderline f indings and [...] ck. Assessment & Plan (12/11/2022 4:18 PM CUSTOMER SERVICE TELLER): Mild OAG vs suspect. Started on tx [...] ck. Assessment & Plan (11/28/2021 1:23 PM CUSTOMER SERVICE TELLER): Mild OAG vs suspect. IOP well controlled [...] irritation. Assessment & Plan (12/13/2020 1:21 PM CUSTOMER SERVICE TELLER): IOP stable on 1 class. Travatan is [...] OU Assessment & Plan (12/11/2022 4:19 PM CUSTOMER SERVICE TELLER): S/p RK OU Assessment & Plan (06/05/2022 3:57 PM CDT): S/p 16 incision RK. Stable. Observe. Assessment & Plan (11/28/2021 1:23 PM CUSTOMER SERVICE TELLER): S/p 16 incision RK OU Assessment & [...] oz pur e alcohol) nightly [facility] Utilities Answer Date Recorded In the past 12 months has [employer], gas, oil, or water company threatened [...] any clubs o r organizations such as baptism groups, unions, fraternal or athletic groups, or [...] any time in the past 12 [facility], were you homeless or living in a usp (including now)? No 01/31/2025 Personal Safety Answer Date Recorded Have you ever been in or are you currently in a harmful physical or emotional relationship or is someone making you feel afraid or unsafe? Denies 01/26/2025 Sex and Gender Information Value Date Recorded Sex Assigned at Not on file Legal Sex Male 2:36 AM CUSTOMER SERVICE TELLER Gender Identity Not on file Sexual Orientation [...] on file Medical Devices Implanted Type Area Embedded Software Manager Device Identifier Shelf Expiration Date Model / Serial / Lot [employer] Plate Bone Low Profile 4 Hole Box Sternum Ti 115.103.04 - [id number] Implanted:Qty: 1 on 01/26/2025 by Kasia Maldonado MD at [facility] Plate N/A: Sternum [employer] 115.103.04 / / [employer] Plate Bone Low Profile 6 Hole H Shape Sternum Ti 115.102.06 - [id number] Implanted:Qty: 1 on 01/26/2025 by Kasia Maldonado MD at [facility] Plate N/A: Sternum [employer] 115.102.06 / / [employer] Plate Bone Low Profile 6 Hole O Shape Sternum Ti 115.104.06 - [id number] Implanted:Qty: 1 on 01/26/2025 by Kasia Maldonado MD at [facility] Plate N/A: Sternum [employer] 115.104.06 / / [employer] Screw Bone Slf Drl Full Thread Locking 3.5x18mm Ti 100.035.18 - [id number] Implanted:Qty: 16 on 01/26/2025 by Kasia Maldonado MD at [facility] Screw N/A: Sternum [employer] 100.035.18 / / Procedures Procedure Name Priority Date/Time Associated Diagnosis Comments AST Routine 04/15/2025 10:06 AM CDT 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 croix coronary artery of [place]. croix heart without angina pectoris CBC WITHOUT DIFFERENTIAL Routine 02/10/2025 10:33 AM CDT Coronary artery disease involving st. croix coronary artery of [place]. croix heart without angina pectoris COMPREHENSIVE METABOLIC PANEL Routine 02/10/2025 10:33 AM CDT Coronary artery disease involving st. croix coronary artery of [place]. croix heart without angina pectoris XR CHEST PA LATERAL 2 VIEWS Schedule Routine, Read Routine (OP Routine) 02/04/2025 1:58 PM CDT Coronary artery disease involving st. croix coronary artery of [place]. 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 POCT GLUCOSE [...] hopson Result Performing Organization Address [facility]/ZIP Co de Phone Number [facility] [address] [address] [phone] * Lipid panel (04/15/2025 10:06 AM CDT) [facility] Cholesterol 165 <200 mg/dL [facility] [...] LDL-C. Fran PEMBERTON et al. ALVA. 2013;310(19): 1075-3629 (http://education.[employer]/faq/XYP020) Chol/HDL ratio 2.5 <5.0 (calc) [facility] [...] l Result Performing Organization Address [facility]/ZIP Co de Phone Number [facility] [address] [address] [phone] * Surgical pathology (04/13/2025 11:10 AM CDT) Skin, shave biopsy 04/13/2025 11:10 AM CDT 04/14/2025 5:35 AM CDT Narrative 04/15/2025 11:52 AM CDT EPIC results best viewed via link to PDF [facility] [address] [place] [address], [address], [place] [address] [email or web address] Note to Patients: This report may [...] 04/15/2025 Submitting Physician Information: Eufemia Mcginnis MD [facility] [place] [address], DERMATOPATHOLOGY REPORT RESULTS DIAGNOSIS: SKIN, LEFT THENAR [...] sxt/dxv ICD-9 A; ZSD.1474 Clerical Data A; 77700 The characteristics of special, immunohistochemical, and immunofluorescence stains and in-situ hybridization tests performed by the [facility] were deemed acceptable in ongoing automotive quality manager measures and in compliance with regulations drawn from the Clinical Laboratory Improvement Act jo0849 (CLIA '88). Control reactions for all stains performed were deemed adequate and appropriate by a pathologist prior to evaluation of patient tissue. Some diagnoses were rendered with the assistance of laboratory-developed tests utilizing analyte-specific reagents; the performance characteristic of these tests were determined by [facility] and are not cleared or approved by the [place] Food an Drug administration. Laboratory developed test may only be performed in a facility that is certified by the [facility] as a high-complexity laboratory under CLIA '88. These tests are used for clinical purposes and are not investigational. us Eufemia Wan MD LAB PATHOLOGY ORDERABLES Final Result * US Arterial Doppler Lower Extremity Bilateral (04/05/2025 1:23 PM CDT) Anatomical Region Laterality Modality Vascular Bilateral Ultrasound 04/05/2025 12:5 2 PM CDT Narrative 04/06/2025 11:15 AM CDT Vascular & Vein Surgery [facility] [place] [address] Lower Extremity Arterial Doppler Report Patient Name: OSEAS MORA A : 1950 Study Date: 04/05/2025 12:52:00 PM Gender: M Back Tender: Kenna Pires Jose Luis Location: [facility] Ref Provider: SINDHU PATRICIO Quality: Adequate Order Provider: SINDHU PATRICIO PROCEDURES: Arterial Report: Bilateral lower extremity arterial Doppler exam at rest. INDICATIONS: I73.9 Peripheral vascular disease, unspecified. HISTORY: HLD. CAD. Afib. Former smoker. COMPARISONS: No previous exams. MEASUREMENTS: Right Value Left Value Rt Brachial Pressure 150 mmHg Lt Brachial Pressure 149 mmHg Rt FLAME HARDENING MACHINE OPERATOR Pressure 166 mmHg Lt FLAME HARDENING MACHINE OPERATOR Pressure 155 mmHg Rt DPA Pressure 166 [...] Vascular & Vein Surgery [address] [place] [address] Lower Extremity Arterial Doppler Report Patient Name: OSEAS MORA A : 1950 Study Date: 04/05/2025 12:52:00 PM Gender: M Back Tender: Kenna Pires RVT Location: [facility] Ref Provider: SINDHU PATRICIO Quality: Adequate Order Provider: SINDHU PATRICIO PROCEDURES: Arterial Report: Bilateral lower extremity arterial Doppler exam at rest. INDICATIONS: I73.9 Peripheral vascular disease, unspecified. HISTORY: HLD. CAD. Afib. Former smoker. COMPARISONS: No previous exams. MEASUREMENTS: Right Value Left Value Rt Brachial Pressure 150 mmHg Lt Brachial Pressure 149 mmHg Rt FLAME HARDENING MACHINE OPERATOR Pressure 166 mmHg Lt FLAME HARDENING MACHINE OPERATOR Pressure 155 mmHg Rt DPA Pressure 166 [...] Both Eyes (02/16/2025 1:46 PM CDT) Pathologist [facility] Pattern Deviation OS 1.33 db CONTINUUM Pattern [...] NP LAB BLOOD ORDERABLES Final Result [facility] [address] [address] Department [place] [address] * (ABNORMAL) CBC without differential (02/10/2025 10:33 [...] NP LAB BLOOD ORDERABLES Final Result [facility] [address] [address] Department [place] [address] * (ABNORMAL) Comprehensive metabolic panel (02/10/2025 10:33 AM CDT) Pathologist [facility] Sodium 133(L) 135 - 145 mmol/L Potassium, [...] 2:16 PM CDT us Jordan Ning Escalera SKIAGRAPHER LAB BLOOD ORDERABLES Final Result [facility] [address] [address] Department [place] [address] * X-ray chest 2 views [...] Hollis Gonzalez M.D. MJ: ANYA Report ID: [id number] Reading Location: [id number] Procedure Note Hollis Gonzalez MD - 02/05/2025 [...] Hollis Gonzalez M.D. MJ: ANYA Report ID: [id number] Reading Location: [place] [address] us Jordan Escalera SKIAGRAPHER IMG XR PROCEDURES Final Res ult * [...] was last reviewed 2021. Testing performed by: [address] [address] Blood 02/04/2025 10:3 3 AM CDT 02/04/2025 11:17 AM CDT us Jordan Escalera SKIAGRAPHER LAB BLOOD ORDERABLES Final [facility] [address] [facility] Department [place] [address] * (ABNORMAL) Differential, auto (02/04/2025 10:33 AM CDT) Neutrophil abs 10.94(H) 1.50 - 6.50 K/cumm Comment:Testing performed by : [address] [address] Imm gran abs 0.25(H) 0.00 - 0.10 K/cumm AYAKA Comment:Testing performed by : [address] [address] Lymphocyte abs 1.77 0.80 - 3.30 K/cumm AYAKA Comment:Testing performed by : [address] [address] Monocyte abs 1.58(H) 0.20 - 0.80 K/cumm AYAKA Comment:Testing performed by : [address] [address] Eosinophil abs 0.27 0.00 - 0.50 K/cumm AYAKA Comment:Testing performed by : [address] [address] Basophil abs 0.09 0.00 - 0.10 K/cumm AYAKA Comment:Testing performed by : [address] [address] Neutrophil pct 73.4 % [facility] Comment: Interpretive Data Percent cell count reference ranges are not reported, since discordance with absolute values may lead to misinterpretation of CBC data. Current Interpretive Data was last revised on 2018. Testing performed by: [address] [address] Imm gran pct 1.7 % [facility] Comment: Interpretive Data Percent cell count reference ranges are not reported, since discordance with absolute values may lead to misinterpretation of CBC data. Current Interpretive Data was last revised on 2018. Testing performed by: [address] [address] Lymphocyte pct 11.9 % [facility] Comment: Interpretive Data Percent cell count reference ranges are not reported, since discordance with absolute values may lead to misinterpretation of CBC data. Current Interpretive Data was last revised on 2018. Testing performed by: [address] [address] Monocyte pct 10.6 % [facility] Comment: Interpretive Data Percent cell count reference ranges are not reported, since discordance with absolute values may lead to misinterpretation of CBC data. Current Interpretive Data was last revised on 2018. Testing performed by: [address] [address] Eosinophil pct 1.8 % [facility] Comment: Interpretive Data Percent cell count reference ranges are not reported, since discordance with absolute values may lead to misinterpretation of CBC data. Current Interpretive Data was last revised on 2018. Testing performed by: [address] [address] Basophil pct 0.6 % [facility] Comment: Interpretive Data Percent cell count reference ranges are not reported, since discordance with absolute values may lead to misinterpretation of CBC data. Current Interpretive Data was last revised on 2018. Testing performed by: [address] [address] Blood 02/04/2025 10:3 3 AM CDT 02/04/2025 11:19 AM CDT us Jordan Escalera NP LAB BLOOD ORDERABLES Final Result [facility] [address] [facility] Department [place] [address] * Urinalysis reflex to microscopic and culture Urine, clean voided (02/04/2025 10:33 AM CDT) Color, ur Straw Yellow Comment:Testing performed by : [address] [address] Clarity, ur Clear Clear AYAKA Comment:Testing performed by : [address] [address] Specific gravity, ur 1.010 1.003 - 1.030 AY[facility]A Comment:Testing performed by : [address] [address] pH, urine 6.5 [facility] Comment: Interpretive Data U rine pH is affected by diet, medications, systemic acid-base disturbances, and renal tubular function. pH may affect urinary stone formation. For example, urine pH below 6.0 may help reduce the tendency for calcium phosphate stones and pH greater than 6.0 may reduce the tendency for uric acid stone formation. Source: [facility] [employer] Current Interpretive Data was last revised on 2017 Testing performed by: [address] [address] Protein, ur ql Negative Negative AYAKA Comment:Testing performed by : [address] [address] Glucose, ur ql Negative Negative AYAKA Comment:Testing performed by : [address] [address] Ketones, ur Negative Negative AYAKA Comment:Testing performed by : [address] [address] Bilirubin, ur Negative Negative AYAKA Comment:Testing performed by : [address] [address] Blood, ur Negative Negative AYAKA Comment:Testing performed by : [address] [address] Urobilinogen, ur <2.0 <2.0 mg/dL AYAKA Comment:Testing performed by : [address] [address] Nitrite, ur Negative Negative AYAKA Comment:Testing performed by : [address] [place] [address] Leukocyte esterase, ur Negative Negative AYAKA Comment:Testing performed by : [address] [address] UA reflex comment Reflex conditions for microscopic UA and culture not met. [facility] ALVAREZ Comment:Testing performed by : [address] [address] Urine, clean voided 02/04/2025 10:33 AM CDT 02/04/2025 11:37 AM CDT us Jordan Escalera NP LAB MICROBIOLOGY - GENERAL ORDERABLES Final Result [facility] [address] [facility] Department [place] [address] * (ABNORMAL) CBC with auto differential (02/04/2025 10:33 AM CDT) WBC 14.90(H) 3.80 - 9.90 K/cumm Comment:Testing performed by : [address] [address] Hgb 8.9(L) 13.0 - 17.5 g/dL AYAKA Comment:Testing performed by : [address] [address] Hct 27.4(L) 38.9 - 50.3 % AYAKA ALVAREZ Comment:Testing performed by : [address] [address] Plt 483(H) 150 - 400 K/cumm AYAKA Comment:Testing performed by : [address] [address] MPV 9.4 9.1 - 12.3 fL AYAKA ALVAREZ Comment:Testing performed by : [address] [address] RBC 2.88(L) 4.30 - 5.80 M/cumm AYAKA ALVAREZ Comment:Testing performed by : [address] [address] MCV 95.1 81.3 - 96.4 fL AYAKA ALVAREZ Comment:Testing performed by : [address] [address] MCH 30.9 27.1 - 33.3 pg AYAKA ALVAREZ Comment:Testing performed by : [address] [address] MCHC 32.5 32.3 - 35.7 g/dL AYAKA ALVAREZ Comment:Testing performed by : [address] [address] RDW CV 14.1 11.1 - 14.9 % AYAKA ALVAREZ Comment:Testing performed by : [address] [address] RDW SD 48.6(H) 35.7 - 48.1 fL AYAKA ALVAREZ Comment:Testing performed by : [address] [address] NRBC abs 0.00 0.00 - 0.01 K/cumm AYAKA ALVAREZ Comment:Testing performed by : [address] [address] Blood 02/04/2025 10:3 3 AM CDT 02/04/2025 11:19 AM CDT Jordan Escalera NP LAB BLOOD ORDERABLES Final Result AYAKA ALVAREZ [facility] Department [place] [address] * (ABNORMAL) Comprehensive metabolic panel (02/04/2025 10:33 AM CDT) Sodium 130(L) 135 - 145 mmol/L Comment:Testing performed by : [address] [address] Potassium, pl 4.6 3.3 - 4.9 mmol/L AYAKA ALVAREZ Comment:Testing performed by : [address] [address] Chloride 96(L) 97 - 110 mmol/L AYAKA ALVAREZ Comment:Testing performed by : [address] [address] CO2 24 22 - 32 mmol/L AYAKA ALVAREZ Comment:Testing performed by : [address] [address] Anion gap 10 2 - 15 mmol/L AYAKA Comment:Testing performed by : [address] [address] BUN 29(H) 6 - 25 mg/dL AYAKA Comment:Testing performed by : [address] [address] Creatinine 1.02 0.80 - 1.30 mg/dL AYAKA Comment:Testing performed by : [address] [address] Glucose 204(H) 70 - 199 mg/dL AYAKA [...] was last revised 2022. Testing performed by: [address] [address] Calcium 9.0 8.5 - 10.3 mg/dL AYAKA Comment:Testing performed by : [address] [address] Bilirubin, total 0.4 0.1 - 1.2 mg/dL AYAKA Comment:Testing performed by : [address] [address] Protein, pl 6.8 6.5 - 8.5 g/dL AYAKA Comment:Testing performed by : [address] [address] Albumin 3.4(L) 3.5 - 5.0 g/dL AYAKA Comment:Testing performed by : [address] [address] Alk phos 78 40 - 130 Units/L AYAKA ALVAREZ Comment:Testing performed by : [facility], [address] [place] [address]., [address] ALT 23 7 - 55 Units/L AYAKA ALVAREZ Comment:Testing performed by : [address] [address] AST 30 10 - 50 Units/L AYAKA Comment:Testing performed by : [facility], [address] [place] [address]., [address] Blood 02/04/2025 10:3 3 AM CDT 02/04/2025 11:17 AM CDT us Jordan Escalera NP LAB BLOOD ORDERABLES Final Result Performing Organization Address City/State/[facility] Co de Phone Number AYAKA [address] [facility] Department [place] [address] * eGFR (01/31/2025 6:15 AM CDT) eGFR [...] LAB BLOOD ORDERABLES Final Res ult AYAKA [address] [address] [employer] [place] [address] * (ABNORMAL) aPTT (01/31/2025 6:15 AM CDT) aPTT 27(L) 28 - 38 sec Comment: Interpretive Data Heparin therapeutic range: 66.0 - 100.0 seconds. Range based on correlation with therapeutic heparin activity range of 0.3 - 0.7 Units/mL. Current interpretive data was last revised on 2023. Blood 01/31/2025 6:15 AM CDT 01/31/2025 6:40 AM CDT Rabia Becerra SKIAGRAPHER LAB BLOOD ORDERABLES Gale l Result Performing Organization Address [facility] de Phone Number AYAKA [address] [address] [facility] [employer] [place] [address] * Protime-INR (01/31/2025 6:15 AM CDT) PT [...] CDT 01/31/2025 6:40 AM CDT Rabia Becerra SKIAGRAPHER LAB BLOOD ORDERABLES Gale l Result Performing Organization Address [facility] Co de Phone Number AYAKA [address] [address] [facility] [employer] [place] [address] * (ABNORMAL) CBC without differential (01/31/2025 6:15 AM CDT) WBC 10.85(H) 3.80 - 9.90 K/cumm Hgb 8.4(L) 13.0 - 17.5 g/dL [facility] Hct 25.2(L) 38.9 - 50.3 % [facility] Plt 222 150 - 400 K/cumm [facility] MPV 9.5 9.1 - 12.3 fL [facility] RBC 2.65(L) 4.30 - 5.80 M/cumm [facility] MCV 95.1 81.3 - 96.4 fL [facility] MCH 31.7 27.1 - 33.3 pg [facility] MCHC 33.3 32.3 - 35.7 g/dL [facility] RDW CV 13.8 11.1 - 14.9 % [facility] RDW SD 48.1 35.7 - 48.1 fL [facility] NRBC abs 0.00 0.00 - 0.01 K/cumm [facility] Blood 01/31/2025 6:15 AM CDT 01/31/2025 6:40 AM CDT us Kasia Maldonado MD LAB BLOOD ORDERABLES Final Res ult [facility] [address] [address] Department [place] [address] * (ABNORMAL) Basic metabolic panel (01/31/2025 6:15 AM CDT) Sodium 133(L) 135 - 145 mmol/L Potassium, pl 4.1 3.3 - 4.9 mmol/L [facility] Chloride 98 97 - 110 mmol/L [facility] CO2 27 22 - 32 mmol/L [facility] Anion gap 8 2 - 15 mmol/L [facility] BUN 25 6 - 25 mg/dL [facility] Creatinine 0.86 0.80 - 1.30 mg/dL [facility] Glucose 103 70 - 199 mg/dL [facility] Comment: Interpretive Data Fasting glucose >/= [...] BLOOD ORDERABLES Final Res ult AYAKA HARRIS [address] [address] Department [place] [address] * XR Chest 1 View - Portable [...] active infiltrate. The tip of the retracted Inlet-Karis catheter is in the distal superior vena cava. Procedure Note Matthew More MD - 01/31/2025 EXAMINATION: XR CHEST 1 VIEW HISTORY: The patient is a 74-year-old male who has had cardiac surgery. Comparison made with the previous study dated 01/30/2025. TECHNIQUE: AP portable view of the chest. FINDINGS: Cardiomegaly with aortic atherosclerosis. No failure. No active infiltrate. The tip of the retracted Inlet-Karis catheter is in the distal superior vena [...] infiltrate. The distal tip of a retracted Inlet-Karis catheter is in the distal superior vena cava. Procedure Note Matthew More MD - 01/30/2025 EXAMINATION: XR CHEST 1 VIEW HISTORY: The patient is a 74-year-old male who has had cardiac surgery. Comparison made with the previous study dated 01/29/2025 TECHNIQUE: AP portable view of the chest. FINDINGS: Cardiomegaly with aortic atherosclerosis. No failure. No active infiltrate. The distal tip of a retracted Inlet-Karis catheter is in the distal superior vena cava. IMPRESSION: No failure. Electronically signed by: Matthew More M.D. Kasia Maldonado MD [facility] XR PROCEDURES Final Result * eGFR (01/30/2025 [...] LAB BLOOD ORDERABLES Final Res ult [facility] [address] [address] Department [place] [address] * (ABNORMAL) CBC without differential (01/30/2025 5:00 AM CDT) WBC 12.79(H) 3.80 - 9.90 K/cumm Hgb 8.6(L) 13.0 - 17.5 g/dL [facility] Hct 26.1(L) 38.9 - 50.3 % [facility] Plt 192 150 - 400 K/cumm [facility] MPV 9.7 9.1 - 12.3 fL [facility] RBC 2.73(L) 4.30 - 5.80 M/cumm [facility] MCV 95.6 81.3 - 96.4 fL [facility] MCH 31.5 27.1 - 33.3 pg [facility] MCHC 33.0 32.3 - 35.7 g/dL [facility] CH RDW CV 13.9 11.1 - 14.9 % [facility] RDW SD 48.7(H) 35.7 - 48.1 fL [facility] NRBC abs 0.00 0.00 - 0.01 K/cumm [facility] Blood 01/30/2025 5:00 AM CDT 01/30/2025 5:33 AM CDT Kasia Maldonado MD LAB BLOOD ORDERABLES Final Res ult Performing Organization Address [facility] Co de Phone Number AYAKA HARRIS [address] [address] Department [place] [address] * (ABNORMAL) Basic metabolic panel (01/30/2025 5:00 AM CDT) Pathologist [facility] Sodium 132(L) 135 - 145 mmol/L Potassium, pl 4.2 3.3 - 4.9 mmol/L [facility] Chloride 98 97 - 110 mmol/L [facility] CO2 26 22 - 32 mmol/L [facility] Anion gap 8 2 - 15 mmol/L [facility] BUN 30(H) 6 - 25 mg/dL [facility] Creatinine 0.85 0.80 - 1.30 mg/dL [facility] Glucose 113 70 - 199 mg/dL [facility] Comment: Interpretive Data Fasting glucose >/= [...] Calcium 8.4(L) 8.5 - 10.3 mg/dL [facility] Blood 01/30/2025 5:00 AM CDT 01/30/2025 5:33 AM CDT Kasia Maldonado MD LAB BLOOD ORDERABLES Final Res ult Performing Organization Address [facility] Co de Phone Number AYAKA HARRIS [address] [address] [place] [employer] [place] [address] * POCT glucose (01/30/2025 3:39 AM CDT) Glucose, POC 132 70 - 199 mg/dL POC Performer [id number] [facility] Blood 01/30/2025 3:39 AM CDT 01/30/2025 3:39 AM CDT Kasia Maldonado MD LAB POCT ORDERABLES - DEVICE F inal Result Performing Organization Address [facility] de Phone Number AYAKA HARRIS [address] [address] [facility] [employer] [place] [address] * POCT glucose (01/29/2025 9:27 PM CDT) Glucose, POC 139 70 - 199 mg/dL POC Performer [id number] [facility] Blood 01/29/2025 9:27 PM CDT 01/29/2025 9:27 PM CDT Kasia Maldonado MD LAB POCT ORDERABLES - DEVICE F inal Result Performing Organization Address [facility] de Phone Number AYAKA HARRIS [phone] [address] [facility] [employer] [place] [address] * POCT glucose (01/29/2025 7:52 AM CDT) Glucose, POC 132 70 - 199 mg/dL POC Performer [id number] [facility] Blood 01/29/2025 7:52 AM CDT 01/29/2025 7:52 AM CDT Kasia Maldonado MD LAB POCT ORDERABLES - DEVICE F inal Result Performing Organization Address [facility] de Phone Number AYAKA HARRIS [address] [address] [facility] [employer] [place] [address] * XR Chest 1 View - Portable [...] Res ult Performing Organization Address [facility] Co de Phone Number AYAKA [address] [place] [address] * (ABNORMAL) CBC without differential (01/29/2025 3:08 [...] ORDERABLES Final Res ult Performing Organization Address City/[facility]/ZIP Co de Phone Number AYAKA [address] [place] [address] * (ABNORMAL) Basic metabolic panel (01/29/2025 3:08 [...] Calcium 8.4(L) 8.5 - 10.3 mg/dL [facility] Blood 01/29/2025 3:08 AM CDT 01/29/2025 4:51 AM CDT Kasia Maldonado MD LAB BLOOD ORDERABLES Final Res ult Performing Organization Address [facility] Co de Phone Number AYAKA HARRIS [phone] [address] [address] * POCT glucose (01/28/2025 9:15 PM CDT) [facility] Signature Glucose, POC 175 70 - 199 mg/dL POC Performer [id number] [facility] Blood 01/28/2025 9:15 PM CDT 01/28/2025 9:15 PM CDT Kasia Maldonado MD LAB POCT ORDERABLES - DEVICE F inal Result Performing Organization Address [facility] Co de Phone Number AYAKA HARRIS [phone] [address] [place] [employer] [place] [address] * ECG 12 lead (01/28/2025 5:33 PM CDT) 01/28/2025 5:33 PM CDT Narrative [facility] - 01/29/2025 6:50 AM CDT Vent Rate: 119 bpm RR Interval: 503 msec ND Interval: 0 msec QRS Duration: 93 msec QT Interval: 318 msec QTC Interval: 389 msec P-R-T [place]: 0 - -9 - 8 degrees IMPRESSION: ATRIAL FIBRILLATION WITH RAPID VENTRICULAR RESPONSE LOW QRS VOLTAGE IN PRECORDIAL LEADS ABNORMAL RHYTHM ECG Electronically Signed By: Dr. Rivas Lehman [facility] Kasia Maldonado MD ECG ORDERABLES Final Result Performing Organization Address [facility] Co de Phone Number [facility] * POCT glucose (01/28/2025 4:30 PM CDT) [facility] Glucose, POC 145 70 - 199 mg/dL POC Performer [id number] AYAKA Blood 01/28/2025 4:30 PM CDT 01/28/2025 4:30 PM CDT Kasia Maldonado MD LAB POCT ORDERABLES - DEVICE F inal Result Performing Organization Address [facility] Co de Phone Number [facility] [address] [address] Department [place] [address] * Critical Care (01/28/2025 4:27 PM CDT) [...] plan with the ICU team and other medical/agricultural consultant staff, making frequent assessments and decisions [...] 145 70 - 199 mg/dL POC Performer [id number] [facility] Blood 01/28/2025 11:4 0 AM CDT 01/28/2025 11:40 AM CDT Kasia Maldonado MD LAB POCT ORDERABLES - DEVICE F inal Result Performing Organization Address [facility] Co de Phone Number AYAKA KIMBERLY [address] [place] [address] * POCT glucose (01/28/2025 6:50 AM CDT) Glucose, POC 105 70 - 199 mg/dL POC Performer [id number] [facility] Blood 01/28/2025 6:50 AM CDT 01/28/2025 6:50 AM CDT Kasia Maldonado MD LAB POCT ORDERABLES - DEVICE F inal Result Performing Organization Address [facility]/ZIP Co de Phone Number AYAKA [address] [address] [place] [address] * POCT glucose (01/28/2025 5:44 AM CDT) Glucose, POC 117 70 - 199 mg/dL POC Performer [id number] AYAKA KIMBERLY Blood 01/28/2025 5:44 AM CDT 01/28/2025 5:44 AM CDT Kasia Maldonado MD LAB POCT ORDERABLES - DEVICE F inal Result AYAKA HARRIS [address] [address] Department [place] [address] * XR Chest 1 View - Portable [...] in place. The tip of a retracted Inlet-Karis catheter is in the superior vena cava. [...] in place. The tip of a retracted Inlet-Karis catheter is in the superior vena cava. Cardiomegaly with aortic atherosclerosis. No failure. Right basal subsegmental atelectasis with the remainder of the lungs being clear. IMPRESSION: Findings as described above. Electronically signed by: Matthew More M.D. Kasia Maldonado MD IMG XR PROCEDURES Final Result * Oxyhemoglobin, central venous (01/28/2025 4:37 AM CDT) Pathologist [facility] Oxyhemoglobin, CV 56.1 % Comment: Interpretive Data No reference range established. Current interpretive data was last revised 2020. Blood 01/28/2025 4:37 AM CDT 01/28/2025 4:44 AM CDT Kasia Maldonado MD LAB BLOOD ORDERABLES Final Res ult Performing Organization Address [facility] Co de Phone Number AYAKA [address] [address] [place] [address] * (ABNORMAL) Calcium, ionized, whole blood (01/28/2025 4:37 AM CDT) Pathologist [facility] Ca, ionized, bld 4.33(L) 4.50 - 5.10 mg/dL Blood 01/28/2025 4:37 AM CDT 01/28/2025 4:44 AM CDT Kasia Maldonado MD LAB BLOOD ORDERABLES Final Res ult Performing Organization Address [facility] Co de Phone Number AYAKA [address] [address] [place] [address] * eGFR (01/28/2025 4:37 AM CDT) Pathologist [facility] eGFR >90 >=60 mL/min/1. 73 m2 [...] LAB BLOOD ORDERABLES Final Res ult [facility] [address] [address] Department [place] [address] * (ABNORMAL) CBC without differential (01/28/2025 4:37 AM CDT) WBC 17.78(H) 3.80 - 9.90 K/cumm Hgb 8.8(L) 13.0 - 17.5 g/dL [facility] Hct 26.6(L) 38.9 - 50.3 % [facility] Plt 126(L) 150 - 400 K/cumm [facility] MPV 9.8 9.1 - 12.3 fL [facility] RBC 2.81(L) 4.30 - 5.80 M/cumm [facility] [...] ORDERABLES Final Res ult Performing Organization Address City/[facility] Co de Phone Number AYAKA [address] [address] [facility] [employer] [place] [address] * Magnesium (01/28/2025 4:37 AM CDT) Magnesium 2.1 1.4 - 2.5 mg/dL Blood 01/28/2025 4:37 AM CDT 01/28/2025 4:45 AM CDT Kasia Maldonado MD LAB BLOOD ORDERABLES Final Res ult Performing Organization Address [facility] de Phone Number AYAKA [address] [address] [employer] [place] [address] * (ABNORMAL) Basic metabolic panel (01/28/2025 4:37 AM CDT) Sodium 136 135 - 145 mmol/L Potassium, pl 3.9 3.3 - 4.9 mmol/L [facility] Chloride 102 97 - 110 mmol/L [facility] CO2 23 22 - 32 mmol/L [facility] Anion gap 11 2 - 15 mmol/L [facility] BUN 22 6 - 25 mg/dL [facility] Creatinine 0.87 0.80 - 1.30 mg/dL [facility] Glucose 114 70 - 199 mg/dL [facility] Comment: Interpretive Data Fasting glucose >/= [...] Res ult Performing Organization Address [facility] Co de Phone Number AYAKA HARRIS [phone] [address] [facility] [employer] [place] [address] * POCT glucose (01/28/2025 4:34 AM CDT) Glucose, POC 120 70 - 199 mg/dL POC Performer [id number] [facility] Blood 01/28/2025 4:34 AM CDT 01/28/2025 4:34 AM CDT Kasia Maldonado MD LAB POCT ORDERABLES - DEVICE F inal Result Performing Organization Address [facility] Co de Phone Number AYAKA HARRIS [address] [address] [facility] [employer] [place] [address] * POCT glucose (01/28/2025 3:34 AM CDT) Glucose, POC 122 70 - 199 mg/dL POC Performer [id number] [facility] Blood 01/28/2025 3:34 AM CDT 01/28/2025 3:34 AM CDT Kasia Maldonado MD LAB POCT ORDERABLES - DEVICE F inal Result Performing Organization Address [facility] Co de Phone Number AYAKA HARRIS [address] [address] [facility] [employer] [place] [address] * POCT glucose (01/28/2025 2:36 AM CDT) Glucose, POC 98 70 - 199 mg/dL POC Performer [id number] [facility] CH Blood 01/28/2025 2:36 AM CDT 01/28/2025 2:36 AM CDT Kasia Maldonado MD LAB POCT ORDERABLES - DEVICE F inal Result Performing Organization Address [facility]/ZIP Co de Phone Number AYAKA HARRIS [address] [address] [facility] [employer] [place] [address] * POCT glucose (01/28/2025 1:23 AM CDT) Glucose, POC 81 70 - 199 mg/dL POC Performer [id number] [facility] Blood 01/28/2025 1:23 AM CDT 01/28/2025 1:23 AM CDT Kasia Maldonado MD LAB POCT ORDERABLES - DEVICE F inal Result Performing Organization Address [facility] Co de Phone Number AYAKA HARRIS [address] [address] [facility] [employer] [place] [address] * POCT glucose (01/28/2025 12:15 AM CDT) Glucose, POC 103 70 - 199 mg/dL POC Performer [id number] [facility] Blood 01/28/2025 12:1 5 AM CDT 01/28/2025 12:15 AM CDT Kasia Maldonado MD LAB POCT ORDERABLES - DEVICE F inal Result Performing Organization Address [facility] Co de Phone Number AYAKA HARRIS [address] [address] [facility] [employer] [place] [address] * POCT glucose (01/27/2025 11:22 PM CDT) Glucose, POC 121 70 - 199 mg/dL POC Performer [id number] [facility] Blood 01/27/2025 11:2 2 PM CDT 01/27/2025 11:22 PM CDT Kasia Maldonado MD LAB POCT ORDERABLES - DEVICE F inal Result Performing Organization Address [facility]/ZIP Co de Phone Number AYAKA HARRIS [address] [address] [facility] [employer] [place] [address] * POCT glucose (01/27/2025 10:19 PM CDT) Glucose, POC 129 70 - 199 mg/dL POC Performer [id number] [facility] Blood 01/27/2025 10:1 9 PM CDT 01/27/2025 10:19 PM CDT Kasia Maldonado MD LAB POCT ORDERABLES - DEVICE F inal Result Performing Organization Address [facility] Co de Phone Number AYAKA HARRIS [address] [address] [facility] [employer] [place] [address] * POCT glucose (01/27/2025 9:15 PM CDT) Glucose, POC 87 70 - 199 mg/dL POC Performer [id number] [facility] Blood 01/27/2025 9:15 PM CDT 01/27/2025 9:15 PM CDT Kasia Maldonado MD LAB POCT ORDERABLES - DEVICE F inal Result Performing Organization Address [facility] Co de Phone Number AYAKA HARRIS [address] [address] [facility] [employer] [place] [address] * POCT glucose (01/27/2025 8:04 PM CDT) Glucose, POC 116 70 - 199 mg/dL POC Performer [id number] [facility] CH Blood 01/27/2025 8:04 PM CDT 01/27/2025 8:04 PM CDT Kasia Maldonado MD LAB POCT ORDERABLES - DEVICE F inal Result Performing Organization Address [facility]/ZIP Co de Phone Number AYAKA HARRIS [address] [address] [facility] [employer] [place], [place] [address] * POCT glucose (01/27/2025 7:12 PM CDT) Glucose, POC 138 70 - 199 mg/dL POC Performer [id number] AYAKA Blood 01/27/2025 7:12 PM CDT 01/27/2025 7:12 PM CDT Kasia Maldonado MD LAB POCT ORDERABLES - DEVICE F inal Result Performing Organization Address [facility]/ZIP Co de Phone Number AYAKA [address] [address] [place] [address] * eGFR (01/27/2025 6:53 PM CDT) Pathologist [facility] eGFR 80 >=60 mL/min/1. 73 m2 Comment: [...] Res ult Performing Organization Address [facility]/ZIP Co de Phone Number [facility] [address] Department of [employer] [place], [place] [id number] * (ABNORMAL) CBC without differential (01/27/2025 6:53 PM CDT) Pathologist [facility] WBC 17.49(H) 3.80 - 9.90 K/cumm Hgb [...] NRBC abs 0.00 0.00 - 0.01 K[facility]cumm [facility] Blood 01/27/2025 6:53 PM CDT 01/27/2025 6:59 PM CDT us Kasia Maldonado MD LAB BLOOD ORDERABLES Final Res ult AYAKA [address] [address] Department of Laboratories [place], [place] [id number] * (ABNORMAL) Basic metabolic panel (01/27/2025 6:53 PM CDT) Pathologist [facility] Sodium 138 135 - 145 mmol/L Potassium, pl 3.2(L) 3.3 - 4.9 mmol/L [facility] Chloride 103 97 - 110 mmol/L [facility] CO2 22 22 - 32 mmol/L [facility] Anion gap 13 2 - 15 mmol/L [facility] BUN 21 6 - 25 mg/dL [facility] Creatinine 0.99 0.80 - 1.30 mg/dL [facility] Glucose 118 70 - 199 mg/dL [facility] Comment: Interpretive Data Fasting glucose >/= [...] 2022. Calcium 8.4(L) 8.5 - 10.3 mg/dL [facility] Blood 01/27/2025 6:53 PM CDT 01/27/2025 6:59 PM CDT Kasia Maldonado MD LAB BLOOD ORDERABLES Final Res ult Performing Organization Address [facility] Co de Phone Number AYAKA HARRIS [phone] [address] [place] [address] * POCT glucose (01/27/2025 6:04 PM CDT) [facility] Signature Glucose, POC 117 70 - 199 mg/dL POC Performer [id number] [facility] Blood 01/27/2025 6:04 PM CDT 01/27/2025 6:04 PM CDT Kasia Maldonado MD LAB POCT ORDERABLES - DEVICE F inal Result Performing Organization Address [facility] Co de Phone Number [facility] [address] [facility] [employer] [place] [address] * Critical Care (01/27/2025 5:45 PM CDT) [...] plan with the ICU team and other medical/agricultural consultant staff, making frequent assessments and decisions [...] time documenting in the medical record Result [facility] Hollis Phillips MD IN CLINIC/BEDSIDE ORDERABLES Final Result * POCT glucose (01/27/2025 4:05 PM CDT) Glucose, POC 166 70 - 199 mg/dL POC Performer [id number] AYAKA CH Blood 01/27/2025 4:05 PM CDT 01/27/2025 4:05 PM CDT Result [facility] Kasia Maldonado MD LAB POCT ORDERABLES - DEVICE F inal Result AYAKA [address] [facility] [place] [address] * POCT glucose (01/27/2025 2:02 PM CDT) Glucose, POC 101 70 - 199 mg/dL POC Performer [id number] AYAKA CH Blood 01/27/2025 2:02 PM CDT 01/27/2025 2:02 PM CDT Result [facility] Kasia Maldonado MD LAB POCT ORDERABLES - DEVICE F inal Result Performing Organization Address [facility] Co de Phone Number AYAKA HARRIS [address] [facility] [employer] [place] [address] * POCT glucose (01/27/2025 12:17 PM CDT) Glucose, POC 83 70 - 199 mg/dL POC Performer [id number] CERNER CH Blood 01/27/2025 12:1 7 PM CDT 01/27/2025 12:17 PM CDT Kasia Maldonado MD LAB POCT ORDERABLES - DEVICE F inal Result Performing Organization Address [facility] Co de Phone Number AYAKA HARRIS [address] [facility] [employer] [place] [address] * POCT glucose (01/27/2025 10:58 AM CDT) Glucose, POC 132 70 - 199 mg/dL POC Performer [id number] CERNER Blood 01/27/2025 10:5 8 AM CDT 01/27/2025 10:58 AM CDT Kasia Maldonado MD LAB POCT ORDERABLES - DEVICE F inal Result Performing Organization Address [facility] Co de Phone Number AYAKA HARRIS [address] [facility] [employer] [place] [address] * ECG 12 lead (01/27/2025 10:50 AM CDT) 01/27/2025 10:5 0 AM CDT Narrative [facility] - 01/27/2025 11:39 AM CDT Vent Rate: 99 bpm RR Interval: 602 msec ND Interval: 163 msec QRS Duration: 93 msec QT Interval: 356 msec QTC Interval: 412 msec P-R-T [place]: 53 - -7 - -1 degrees IMPRESSION: SINUS RHYTHM WITH artifact BORDERLINE ECG Electronically Signed By: Dr. Rivas Lehman [facility] Kasia Maldonado MD ECG ORDERABLES Final Result Performing Organization Address City/[facility]/ZIP Co de Phone Number [facility] * POCT glucose (01/27/2025 7:40 AM CDT) Glucose, POC 111 70 - 199 mg/dL POC Performer [id number] CERNER CH Blood 01/27/2025 7:40 AM CDT 01/27/2025 7:40 AM CDT Kasia Maldonado MD LAB POCT ORDERABLES - DEVICE F inal Result Performing Organization Address [facility] de Phone Number AYAKA HARRIS [address] [address] [facility] [employer] [place] [address] * POCT glucose (01/27/2025 6:27 AM CDT) Glucose, POC 127 70 - 199 mg/dL POC Performer [id number] CERNER CH Blood 01/27/2025 6:27 AM CDT 01/27/2025 6:27 AM CDT Kasia Maldonado MD LAB POCT ORDERABLES - DEVICE F inal Result Performing Organization Address [facility] de Phone Number AYAKA HARRIS [address] [address] [facility] [employer] [place] [address] * POCT glucose (01/27/2025 5:16 AM CDT) Glucose, POC 126 70 - 199 mg/dL POC Performer [id number] CERNER CH Blood 01/27/2025 5:16 AM CDT 01/27/2025 5:16 AM CDT Kasia Maldonado MD LAB POCT ORDERABLES - DEVICE F inal Result Performing Organization Address [facility] Co de Phone Number [place] [address] [place] [address] * XR Chest 1 View - Portable [...] tubes. Left thoracostomy tube mediastinal drain and Inlet-Karis catheter remain in place. Mild cardiomegaly is seen without failure. No pneumothorax. Procedure Note Sunil Luna MD - 01/27/2025 EXAMINATION: XR CHEST 1 VIEW DATE: 01/27/2025 4:10 AM HISTORY: Cardiac surgery FINDINGS:Compared with the study of the previous day, the patient is extubated with removal of endotracheal and nasogastric tubes. Left thoracostomy tube mediastinal drain and Inlet-Karis catheter remain in place. Mild cardiomegaly is [...] BLOOD ORDERABLES Final Res ult AYAKA HARRIS [address] [address] [facility] [place] [address] * eGFR (01/27/2025 4:05 AM CDT) eGFR [...] BLOOD ORDERABLES Final Res ult AYAKA HARRIS [address] [address] [place] [address] * (ABNORMAL) Differential, auto (01/27/2025 4:05 AM CDT) Neutrophil abs 12.90(H) 1.50 - 6.50 K/cumm Imm gran abs 0.10 0.00 - 0.10 K/cumm CERNER CH Lymphocyte abs 0.80 0.80 - 3.30 K/cumm CERNER Monocyte abs 1.45(H) 0.20 - 0.80 K/cumm CERNER Eosinophil abs 0.00 0.00 - 0.50 K/cumm CERNER CH Basophil abs 0.03 0.00 - 0.10 K/cumm [facility] Neutrophil pct 84.4 % [facility] Comment: Interpretive Data Percent cell count [...] revised on 2018. Lymphocyte pct 5.2 % [facility] Comment: Interpretive Data Percent cell count [...] revised on 2018. Basophil pct 0.2 % [facility] Comment: Interpretive Data Percent cell count reference ranges are not reported, since discordance with absolute values may lead to misinterpretation of CBC data. Current Interpretive Data was last revised on 2018. Blood 01/27/2025 4:05 AM CDT 01/27/2025 4:10 AM CDT us Kasia Maldonado MD LAB BLOOD ORDERABLES Final Res ult AYAKA [address] [address] [place] [address] * (ABNORMAL) CBC with auto differential (01/27/2025 4:05 AM CDT) WBC 15.28(H) 3.80 - 9.90 K/cumm Hgb 9.2(L) 13.0 - 17.5 g/dL AYAKA Hct 27.6(L) 38.9 - 50.3 % [facility] Plt 139(L) 150 - 400 K/cumm CERNER CH MPV 9.6 9.1 - 12.3 fL CERNER RBC 2.88(L) 4.30 - 5.80 M/cumm CERNER CH MCV 95.8 81.3 - 96.4 fL [facility] MCH 31.9 27.1 - 33.3 pg CERNER MCHC 33.3 32.3 - 35.7 g/dL CERNER CH RDW CV 13.7 11.1 - 14.9 % CERNER CH RDW SD 48.3(H) 35.7 - 48.1 fL [facility] NR[facility] abs 0.00 0.00 - 0.01 K/cumm [facility] CH Blood 01/27/2025 4:05 AM CDT 01/27/2025 4:10 AM CDT Kasia Maldonado MD LAB BLOOD ORDERABLES Final Res ult Performing Organization Address [facility]/ZIP Co de Phone Number [place] [address] [place] [address] * (ABNORMAL) Magnesium (01/27/2025 4:05 AM CDT) Magnesium 2.8(H) 1.4 - 2.5 mg/dL Blood 01/27/2025 4:05 AM CDT 01/27/2025 4:10 AM CDT Kasia Maldonado MD LAB BLOOD ORDERABLES Final Res ult [facility] [address] [address] [facility] [place] [address] * (ABNORMAL) Basic metabolic panel (01/27/2025 4:05 AM CDT) Sodium 140 135 - 145 mmol/L Potassium, pl 4.0 3.3 - 4.9 mmol/L [facility] Chloride 108 97 - 110 mmol/L [facility] CO2 22 22 - 32 mmol/L [facility] Anion gap 10 2 - 15 mmol/L [facility] BUN 19 6 - 25 mg/dL [facility] Creatinine 0.75(L) 0.80 - 1.30 mg/dL [facility] Glucose 114 70 - 199 mg/dL [facility] Comment: Interpretive Data Fasting glucose >/= [...] Calcium 8.2(L) 8.5 - 10.3 mg/dL [facility] Blood 01/27/2025 4:05 AM CDT 01/27/2025 4:10 AM CDT Kasia Maldonado MD LAB BLOOD ORDERABLES Final Res ult Performing Organization Address City/[facility]/ZIP Co de Phone Number AYAKA HARRIS [address] [place] [address] * POCT glucose (01/27/2025 4:03 AM CDT) Glucose, POC 122 70 - 199 mg/dL POC Performer [id number] [facility] Blood 01/27/2025 4:03 AM CDT 01/27/2025 4:03 AM CDT Kasia Maldonado MD LAB POCT ORDERABLES - DEVICE F inal Result Performing Organization Address City/[facility]/ZIP Co de Phone Number AYAKA HARRIS [address] [address] [facility] [employer] [place] [address] * POCT glucose (01/27/2025 3:02 AM CDT) Glucose, POC 112 70 - 199 mg/dL POC Performer [id number] CERNER CH Blood 01/27/2025 3:02 AM CDT 01/27/2025 3:02 AM CDT Kasia Maldonado MD LAB POCT ORDERABLES - DEVICE F inal Result Performing Organization Address [facility] Co de Phone Number AYAKA HARRIS [address] [address] [facility] [employer] [place] [address] * POCT glucose (01/27/2025 1:57 AM CDT) Glucose, POC 127 70 - 199 mg/dL POC Performer [id number] CERNER CH Blood 01/27/2025 1:57 AM CDT 01/27/2025 1:57 AM CDT Kasia Maldonado MD LAB POCT ORDERABLES - DEVICE F inal Result Performing Organization Address [facility] Co de Phone Number AYAKA HARRIS [address] [address] [employer] [place] [address] * POCT glucose (01/27/2025 12:50 AM CDT) Glucose, POC 146 70 - 199 mg/dL POC Performer [id number] CERNER CH Blood 01/27/2025 12:5 0 AM CDT 01/27/2025 12:50 AM CDT Kasia Maldonado MD LAB POCT ORDERABLES - DEVICE F inal Result Performing Organization Address [facility] Co de Phone Number AYAKA HARRIS [address] [address] [facility] [employer] [place] [address] * Potassium, whole blood (01/27/2025 12:44 AM CDT) Pathologist [facility] Potassium, bld 3.5 3.3 - 4.9 mmol/L [...] Res ult Performing Organization Address [facility] Co de Phone Number AYAKA HARRIS [address] [address] [facility] [employer] [place] [address] * (ABNORMAL) Hemoglobin and hematocrit (01/27/2025 12:44 AM CDT) Hgb 9.1(L) 13.0 - 17.5 g/dL Hct 27.3(L) 38.9 - 50.3 % [facility] Blood 01/27/2025 12:4 4 AM CDT 01/27/2025 12:54 AM CDT Kasia Maldonado MD LAB BLOOD ORDERABLES Final Res ult Performing Organization Address [facility] de Phone Number AYAKA HARRIS [address] [address] [facility] [employer] [place] [address] * (ABNORMAL) Blood gas, arterial (01/27/2025 12:44 AM CDT) pH, Art 7.36 7.35 - 7.45 PCO2, Arterial 40 35 - 45 mmHg [facility] PO2, Arterial 93 83 - 108 mmHg [facility] HCO3 Art (Calculated) 22 20 - 30 mmol/L CERNER CH BE, art -3 mmol/L CERNER CH Comment: Interpretive Data No Reference Range Established Current Interpretive Data was last revised on 2017 O2 Sat Art (Measured) 96(H) 90 - 95 % [facility] Blood 01/27/2025 12:4 4 AM CDT 01/27/2025 12:53 AM CDT Result [facility] Kasia Maldonado MD LAB BLOOD ORDERABLES Final Res ult [facility] [address] [address] [place] [address] from Last 3 Months Insurance [facility] [employer]ERAL MEDICARE [facility] FED[employer]AL Advance Directives For more information, please contact: [phone] * Full Code (Latest Code Status on File) Date Activated Date Inactivated Comments 01/26/2025 4:03 PM 01/31/2025 9:06 PM Care Teams Hospice Rn Relationship Specialty Start Date End Date Shabbir White MD [address] [place] [address] PCP - General 02/07/17 Kasia Maldnoado MD [address] [place] [address] Surgeon Cardiothoracic Surgery 01/31/25 Sindhu Patricio MD [address], [address] [place] [address] Consulting Physician Cardiology 01/31/25 Miscellaneous, Not In File 01/31/25
--- OUTSIDE RECORDS SUMMARY | 2025-04-28 13:29 | XMS_ITS ---
Author Organization [facility] Address [address] [facility] [place] [address] Care Team Providers Care Structural Iron Erector Name Role Phone Shabbir White MD Primary Care Prov ider Kasia Maldonado MD Unavailable [phone] Gera Patricio MD Unavailable Miscellaneous, Not [...] now. Assessment & Plan (09/09/2023 1:08 PM HOSPITAL ADMISSIONS OFFICER): 2/2 RK OU, patient having issues with I/R and having other health issues Would like to return lenses and try again at another time. Will return [place] lenses and RTC for refit in future [...] next exam OS RTC for dispense reF# [id number] Assessment & Plan (05/23/2023 4:00 PM CDT): 2/2 RK OU, possible OHx of amblyopia OD; patient states that OD (even prior to RK) has never seen as well as OS Educated patient on options, corneal GP (would need reverse kate design) vs scleral Patient concerned about dryness and comfort, will go ahead with scleral fit today Today with [place] 16.0, excellent comfort OU: OD: 450um central, minimal limbal. Slighlt toe impingement 360, better periphery with flat lens OS: 450um central, minimal limbal. Slight toe impitngement 360, better periphery with flat and better vision with FSE2 Flat periphery / FSE2 / aim for 280um central clearance with adjustments today BCVA 20/30- OD; 20/25-- OS RTC for dispense Ref# [id number] Assessment & Plan (12/11/2022 4:19 PM HOSPITAL ADMISSIONS OFFICER): Patient is s/p 1 cut RK OU and has to change between several pairs of glasses through the day due to fluctuations in refractive error. Pt has been told about scleral lenses in the past and is interested in trying them. Will consult with Dr. Rivera and schedule and evaluation. Retinal drusen of both eyes 06/05/2022 Assessment & Plan (12/11/2022 4:19 PM HOSPITAL ADMISSIONS OFFICER): Mild and stable. F/u annually. Assessment & [...] CPM. Assessment & Plan (11/28/2021 1:23 PM HOSPITAL ADMISSIONS OFFICER): Continue ATs prn. Assessment & Plan (05/30/2021 2:28 PM CDT): PF ATs prn. Assessment & Plan (01/31/2021 1:46 PM CDT): Well controlled with artificial tears. CPM Assessment & Plan (12/13/2020 1:16 PM HOSPITAL ADMISSIONS OFFICER): Pt feels his symptoms are well controlled [...] 10/26/2019 Assessment & Plan (10/29/2019 7:17 PM HOSPITAL ADMISSIONS OFFICER): Chest pain is atypical in that it occurs only sometimes in his in various locations of his chest. I am suspicious that it is musculoskeletal, but would recommend a stress test. As his EKG is normal, imaging is not required. Biceps tendinitis of right upper extremity 11/25 Overview (11/25/2018): Added automatically from request for surgery [id number] Incomplete tear of right rotator cuff 11/25/2018 Overview (11/25/2018): Added automatically from request for surgery [id number] Open angle with borderline f indings and [...] ck. Assessment & Plan (12/11/2022 4:18 PM HOSPITAL ADMISSIONS OFFICER): Mild OAG vs suspect. Started on tx [...] ck. Assessment & Plan (11/28/2021 1:23 PM HOSPITAL ADMISSIONS OFFICER): Mild OAG vs suspect. IOP well controlled [...] irritation. Assessment & Plan (12/13/2020 1:21 PM HOSPITAL ADMISSIONS OFFICER): IOP stable on 1 class. Travatan is [...] OU Assessment & Plan (12/11/2022 4:19 PM HOSPITAL ADMISSIONS OFFICER): S/p RK OU Assessment & Plan (06/05/2022 3:57 PM CDT): S/p 16 incision RK. Stable. Observe. Assessment & Plan (11/28/2021 1:23 PM HOSPITAL ADMISSIONS OFFICER): S/p 16 incision RK OU Assessment & [...]
--- OUTSIDE RECORDS SUMMARY | 2025-04-28 13:29 | XMS_ITS | Clinical Summary ---
Author Organization [facility] Address [address] [place] [address] Care Team Providers Care Wire Coiler Name Role Phone Shabbir Wihte MD Primary Care Provider [phone] Allergies No known active allergies Medications famotidine [...] DROP INTO EACH EYE NIGHTLY 06/11/2023 Active Encounters Date Type Department Care Team Description 04/27/2025 6:06 AM T Hospital Encounter [facility] [address] [place] [address] Gera Patricio MD Arrived 04/27/2025 Travel 04/25/2025 6:00 AM CDT - 04/25/2025 11:59 PM CDT Hospital Encounter [facility] [address] [place] [address] Gera Patricio MD Arrived Discharge Disposition: Home or Self Care (Routine Discharge) 04/25/2025 Travel 04/21/2025 5:49 AM CDT - 04/21/2025 11:59 PM CDT Hospital Encounter [facility] [address] [place] [address] Gera Patricio MD Discharge Disposition: Home or Self Care (Routine Discharge) 04/20/2025 5:50 AM CDT - 04/20/2025 11:59 PM CDT Hospital Encounter [facility] [address] [place], [place] [address]Gera Huerta MD Discharge Disposition: Home or Self Care (Routine Discharge) 04/20/2025 Travel 04/18/2025 5:49 AM CDT - 04/18/2025 11:59 PM CDT Hospital Encounter [facility] [address] [place] [address] Gera Patricio MD Discharge Disposition: Home or Self Care (Routine Discharge) 04/18/2025 Travel 04/14/2025 5:46 AM CDT - 04/14/2025 11:59 PM CDT Hospital Encounter [facility] [address] [place] [address] Gera Patricio MD Discharge Disposition: Home or Self Care (Routine Discharge) 04/14/2025 Travel 04/11/2025 5:46 AM CDT - 04/11/2025 11:59 PM CDT Hospital Encounter [facility] [address] [place] [address] Gera Patricio MD Discharge Disposition: Home or Self Care (Routine Discharge) 04/11/2025 Travel 04/06/2025 6:24 AM CDT - 04/06/2025 11:59 PM CDT Hospital Encounter [facility] [address] [place] [address] Gera Patricio MD Discharge Disposition: Home or Self Care (Routine Discharge) 04/06/2025 Travel 04/04/2025 5:47 AM CDT - 04/04/2025 11:59 PM CDT Hospital Encounter [facility] [address] [place] [address] Gera Patricio MD Discharge Disposition: Home or Self Care (Routine Discharge) 04/04/2025 Travel 03/31/2025 5:41 AM CDT - 03/31/2025 11:59 PM CDT Hospital Encounter [facility] [address] [place] [address] Gera Patricio MD Discharge Disposition: Home or Self Care (Routine Discharge) 03/30/2025 6:07 AM CDT - 03/30/2025 11:59 PM CDT Hospital Encounter [facility] [address] [place] [address] Gera Patricio MD Discharge Disposition: Home or Self Care (Routine Discharge) 03/30/2025 Travel 03/28/2025 6:20 AM CDT - 03/28/2025 11:59 PM CDT Hospital Encounter [facility] [address] [place] [address] Gera Patricio MD Discharge Disposition: Home or Self Care (Routine Discharge) 03/28/2025 Travel 03/24/2025 6:04 AM CDT - 03/24/2025 11:59 PM CDT Hospital Encounter [facility] [address] [place] [address] Gera Patricio MD Discharge Disposition: Home or Self Care (Routine Discharge) 03/24/2025 Travel 03/23/2025 5:59 AM CDT - 03/23/2025 11:59 PM CDT Hospital Encounter [facility] [address] [place] [address] Gera Patricio MD Discharge Disposition: Home or Self Care (Routine Discharge) 03/23/2025 Travel 03/21/2025 5:54 AM CDT - 03/21/2025 11:59 PM CDT Hospital Encounter [facility] [address] [place] [address] Gera Patricio MD Discharge Disposition: Home or Self Care (Routine Discharge) 03/21/2025 Travel 03/17/2025 5:53 AM CDT - 03/17/2025 11:59 PM CDT Hospital Encounter [facility] [address] [place] [address] Gera Patricio MD Discharge Disposition: Home or Self Care (Routine Discharge) 03/17/2025 Travel 03/10/2025 5:47 AM CDT - 03/10/2025 11:59 PM CDT Hospital Encounter [facility] [address] [place] [address] Gera Patricio MD Discharge Disposition: Home or Self Care (Routine Discharge) 03/10/2025 Travel 03/08/2025 6:13 AM CDT - 03/08/2025 11:59 PM CDT Hospital Encounter [facility] [address] [place] [address] Gera Patricio MD Discharge Disposition: Home or Self Care (Routine Discharge) from Last 3 Months Immunizations Immunization Administration Dates Next Due Fluzone [...] - - Weight 67.6 kg (149 lb) 03/23/2025 2:00 PM CDT Height 170.2 cm (5' 7) 07/15/2023 11:14 AM CDT Body Mass Index 23.34 07/15/2023 11:14 AM CDT Plan of Treatment Upcoming Encounters Date Type Department Care Team (Late st Contact Info) Description 05/16/2025 12:30 PM CDT Appointment [facility] [address] [place] [address] Gera Patricio MD [address] [facility] [address] [place], [place] [id number] 05/18/2025 12:30 PM CDT Appointment [facility] [address] [place] [address] Gera Patricio MD [address] [facility] [address] [place], [place] [address] 05/19/2025 12:30 PM CDT Appointment [facility] [address] [place] [address] Gera Patricio MD [address] [facility] [address] [place] [address] 05/23/2025 12:30 PM CDT Appointment [facility] [address] [place] [address] Gera Patricio MD [address] [facility] [address] [place] [address] 05/25/2025 12:30 PM CDT Appointment [facility] [address] [place] [address] Gera Patricio MD [address] [facility] [address] [place] [id number] 05/26/2025 12:30 PM CDT Appointment [facility] [address] [place] [address] Gera Patricio MD [address] [address] 05/30/2025 12:30 PM CDT Appointment [facility] [address] [place] [address] Gera Patricio MD [address] [address] 06/01/2025 12:30 PM CDT Appointment [facility] [address] [place] [address] Gera Patricio MD [address] [address] 06/02/2025 12:30 PM CDT Appointment [facility] [address] [place] [address] Gera Patricio MD [address] [place] [address] [place], [place] [id number] 06/06/2025 12:30 PM CDT Appointment [facility] [address] [place] [address] Gera Patricio MD [address] [facility] [place] [address] 06/08/2025 12:30 PM CDT Appointment [facility] [address] [place] [address] Gera Patricio MD [address] [place], [place] [id number] 06/09/2025 12:30 PM CDT Appointment [facility] [address] [place] [address] Gera Patricio MD [address] [place] [address] 06/13/2025 12:30 PM CDT Appointment [facility] [address] [place] [address] Gera Patricio MD [address] [facility] [address] [place], [place] [id number] 06/15/2025 12:30 PM CDT Appointment [facility] [address] [place] [address] Gera Patricio MD [address] [facility] [address] [address] [place], [place] [id number] 06/16/2025 12:30 PM CDT Appointment [facility] [address] [place] [address] Gera Patricio MD [address] [facility] [place] [id number] 06/22/2025 12:30 PM CDT Appointment [facility] [address] [facility] [place] [address] eGra Patricio MD [address] [address] Health Maintenance Due Date Last Done Comments Hepatitis C 1968 DTaP, Tdap and Td Vaccines ( 1 - Tdap) 1969 Pneumococcal Vaccine: 50+ Years (1 of 1 - PCV) 2000 Zoster Vaccines (1 of 2) 2000 RSV Immunization or 60+ Years (1 - Risk 60-74 years 1-dose series) 2010 COVID-19 Vaccine (2023-2 5 season) 2024 07/19/2021, 12/22/2020, 11/24/2020 Colorectal [...] Relevant to Health Maintenance Insurance Care Teams Wire Coiler Relationship Specialty Start Date End Date Shabbir White MD [address] [address] PCP - General 08/09/12
[2025-04-28 14:19] LABS: NT Pro B Type Natriuretic Pept 506 pg/mL (19.9-100)
--- NOTE | 2025-04-28 14:46 | ECG_ITS ---
Test Date: 2025-04-28 14:59:33 Measurements Intervals Clubb Rate: 74 P: 54 AL: 206 QRS: 12 QRSD: 93 T: 50 QT: 393 QTc: 438 Interpretive Statements SINUS RHYTHM WITH OCCASIONAL VENTRICULAR PREMATURE COMPLEXES WITH OCCASIONAL SUPRAVENTRICULAR PREMATURE COMPLEXES POSSIBLE RIGHT VENTRICULAR CONDUCTION DELAY [RSR (QR) IN V1/V2] Compared to ECG 04/28/2025 11:53:54 Ventricular premature complex(es) now present Electronically Signed On 04-29-2025 07:14:41 CDT by Rivas Lehman M.D.
[2025-04-28 15:31] LABS: Troponin I < 0.012 ng/mL (0.000-0.034)
== END 2025-04-28 17:53 | disposition home or self-care (01) ==
PROVIDERS: Emergency Medicine; Emergency Provider Emergency Medicine; PCP Family Medicine Adolescent Medicine
DX: R07.89 Other chest pain (principal); I25.10 Atherosclerotic heart disease of native coronary artery without angina pectoris; Z95.1 Presence of aortocoronary bypass graft; Z87.891 Personal history of nicotine dependence
CPT/HCPCS: 36415; 71046; 71275; 80053; 83690; 83880; 84484; 85025; 85610; 85730; 93005; 99284; Q9967

== ENCOUNTER 2025-06-08 14:35 | Outpatient (CLI) | payer BC, SELFPAY ==
--- NOTE | ~2025-06-08 | MR_ITS ---
MRI of the lumbar spine Clinical History: Spondylosis Technique: Axial T2-weighted images, and sagittal T1-weighted, T2-weighted, and T2 fat-sat images were acquired. COMPARISON: 06/28/2024 Findings: No acute fracture identified. Transitional S1 vertebral body noted. 7 mm anterolisthesis of L5 over S1 noted, similar to prior exam. There is reactive Modic signal changes about the L4-L5 disc space. No suspicious bone marrow signal abnormality seen. At L1-L2, there is no disc bulge or herniation. There is mild facet arthropathy. No central canal stenosis or neural foraminal narrowing. At L2-L3, there is minimal disc bulge with mild facet arthropathy. No central canal stenosis or neural foraminal narrowing. At L3-L4, there is mild disc bulge with mild facet arthropathy. No central canal stenosis. Probable mild right neural foraminal narrowing. Left neural foramen preserved. At L4-L5, there is degenerative disc narrowing with diffuse disc bulge and moderate to severe facet arthropathy. No central canal stenosis. There is severe right neural foraminal narrowing, and mild left neural foraminal narrowing. L5-S1, there is degenerative disc narrowing with diffuse disc bulge/uncovering and severe facet arthropathy. No central canal stenosis. There is mild to moderate right neural foraminal narrowing, and mild left neural foraminal narrowing. Paravertebral soft tissues are unremarkable. Impression: 7 mm anterolisthesis of L5 over S1. Xuyt-fy-hnlfuxit degenerative spondylitic changes, as above. Reviewed, dictated and finalized at [facility]. Impression: 7 mm anterolisthesis of L5 over S1. Jyur-cw-lagudrxl degenerative spondylitic changes, as above.
== END 2025-06-08 14:36 | disposition home or self-care (01) ==
LOC: MICIMG 14:37
PROVIDERS: PCP Family Medicine Adolescent Medicine; Visit Provider Neurological Surgery
DX: M43.17 Spondylolisthesis, lumbosacral region (principal); M47.816 Spondylosis without myelopathy or radiculopathy, lumbar region; M48.061 Spinal stenosis, lumbar region without neurogenic claudication
CPT/HCPCS: 72148

== ENCOUNTER 2025-06-24 12:08 | Outpatient (CLI) | payer BC, SELFPAY ==
--- OUTSIDE RECORDS SUMMARY | 2025-06-23 05:43 | XMS_ITS | Encounter Summary ---
Author Organization [facility] Address [address] [place] [address] Care Team Providers Care Whipped Topping Mixer Name Role Phone Shabbir White MD Primary Care Provider [phone] Reason for Visit * Rehabilitation (Routine) - Authorized Specialty Diagnoses / Procedures Referred By Contact Referred To Contact Cardiac Rehabilitation / [facility] Cardiopulmonary Rehab Diagnoses S/P CABG x 4 Procedures PHASE II CARDIAC REHAB Gera Patricio MD [address] [facility] [address] [place] [address] Phone: tel:[phone] fax:[phone] [facility] [address] [place] [address] fax: Referral ID Status Reason Start Date Expiration Date Visits Requested Visits Authorized [id number] Authorized Cardiac Rehabilitation 5 10/19/2025 37 37 Encounter Details Date Type Department Care Team (Latest Contact Info) Description 06/23/2025 5:43 AM CDT Hospital Encounter [facility] [address] [place] [address] Gera Patricio MD [address] [place] [address] Arrived Social History Tobacco Use [...] Care Team (Late st Contact Info) Description 06/27/2025 12:30 PM CDT Appointment [facility] [address] [place] [address] Gera Patricoi MD [address] [place] [address] 06/29/2025 12:30 PM CDT Appointment [facility] [address] [place] [address] Gera Patricio MD [address] [place] [address] 06/30/2025 12:30 PM CDT Appointment [facility] [address] [place] [address] Gera Patricio MD [address] [place] [address] 07/04/2025 12:30 PM CDT Appointment [facility] [address] [place] [address] Gera Patricio MD [address] [place] [address] 07/06/2025 12:30 PM CDT Appointment [facility] [address] [place] [address] Gera Patricio MD [address] [place] [address] documented as of this encounter Visit Diagnoses Not on filedocumented in this encounter Care Teams Whipped Topping Mixer Relationship Specialty Start Date End Date Shabbir White MD [address] [address] PCP - General 08/09/12 documented as of this encounter
--- NOTE | ~2025-06-24 | CT_ITS ---
EXAM: CT brain wo con - 06/24/2025 12:20 CDT History: 75 years old Male with R51.9 - Headache, unspecified COMPARISON: 02/12/2025 PROCEDURE: CT of the head without contrast. Axial, sagittal and coronal reformatted planes were evaluated. Automatic exposure control was used for this study. FINDINGS: BRAIN PARENCHYMA: No acute hemorrhage. No mass effect or herniation. Hannon-white matter differentiation is maintained. Mild chronic volume loss. Scattered hypodensities in subcortical and periventricular white matter, likely representing chronic microvascular ischemic changes in this age group. Atherosc lerotic calcification of the intracranial vessels is noted. VENTRICLES/ EXTRA-AXIAL SPACES: No hydrocephalus or extra-axial fluid collection. EXTRACRANIAL STRUCTURES: No calvarial fracture. IMPRESSION: No evidence for acute intracranial hemorrhage or calvarial fracture. Please note, that CT scan is not sensitive for detection of many pathologies causing headache, including but not limited to infection, dural sinus thrombosis, arterial dissection, increased and decreased intracranial pressure. Reviewed, dictated and finalized at location N. IMPRESSION: No evidence for acute intracranial hemorrhage or calvarial fracture. Please note, that CT scan is not sensitive for detection of many pathologies ca using headache, including but not limited to infection, dural sinus thrombosis, arterial dissection, increased and decreased intracranial pressure.
--- OUTSIDE RECORDS SUMMARY | 2025-06-24 12:13 | XMS_ITS | Encounter Summary ---
Author Organization [facility] Healthcare Address [address] [place] [address] Care Team Providers Care Stamp Classifier Name Role Phone Shabbir White MD Primary Care Prov ider Kasia Maldonado MD Unavailable [phone] Gera Patricio MD Unavailable Miscellaneous, Not In File Unavailable Unava ilable Encounter Details Date Type Department Care Team (Late st Contact Info) Description 11/30/2021 Telephone [facility] [address] [facility] [address] [place] [phone] Kenna Boudreaux, RT Social History Tobacco [...] on file Legal Sex Male 2:36 AM SCHEDULER CONVEYOR Gender Identity Not on file Sexual Orientation Not on file documented as of this encounter Plan of Treatment Not on file documented as of this encounter Visit Diagnoses Not on filedocumented in this encounter Care Teams Stamp Classifier Relationship Specialty Start Date End Date Shabbir White MD PCP - General 02/07/17 Kasia Maldonado MD Surgeon Cardiothoracic Surgery 01/31/25 Gera Patricio MD [address], [address] [place] [address] Consulting Physician Cardiology 01/31/25 Miscellaneous, Not In File 01/31/25 documented as of this encounter
--- OUTSIDE RECORDS SUMMARY | 2025-06-24 12:16 | XMS_ITS ---
Author Organization [facility] Address [address] [place] [address] Care Team Providers Care Septic Tank Servicer Name Role Phone Shabbir White MD Primary Care Prov ider Kasia Maldonado MD Unavailable [phone] Gera Patricio MD Unavailable [phone] Miscellaneous, Not In File Unavailable Unava ilable [...] now. Assessment & Plan (09/09/2023 1:08 PM POWDER BLENDER AND POURER): 2/2 RK OU, patient having issues with I/R and having other health issues Would like to return lenses and try again at another time. Will return [place] lenses and RTC for refit in future [...] next exam OS RTC for dispense reF# [id number] Assessment & Plan (05/23/2023 4:00 PM CDT): 2/2 RK OU, possible OHx of amblyopia OD; patient states that OD (even prior to RK) has never seen as well as OS Educated patient on options, corneal GP (would need reverse kate design) vs scleral Patient concerned about dryness and comfort, will go ahead with scleral fit today Today with [place] 16.0, excellent comfort OU: OD: 450um central, minimal limbal. Slighlt toe impingement 360, better periphery with flat lens OS: 450um central, minimal limbal. Slight toe impitngement 360, better periphery with flat and better vision with FSE2 Flat periphery / FSE2 / aim for 280um central clearance with adjustments today BCVA 20/30- OD; 20/25-- OS RTC for dispense Ref# [id number] Assessment & Plan (12/11/2022 4:19 PM POWDER BLENDER AND POURER): Patient is s/p 1 cut RK OU and has to change between several pairs of glasses through the day due to fluctuations in refractive error. Pt has been told about scleral lenses in the past and is interested in trying them. Will consult with Dr. Rivera and schedule and evaluation. Retinal drusen of both eyes 06/05/2022 Assessment & Plan (12/11/2022 4:19 PM POWDER BLENDER AND POURER): Mild and stable. F/u annually. Assessment & [...] CPM. Assessment & Plan (11/28/2021 1:23 PM POWDER BLENDER AND POURER): Continue ATs prn. Assessment & Plan (05/30/2021 2:28 PM CDT): PF ATs prn. Assessment & Plan (01/31/2021 1:46 PM CDT): Well controlled with artificial tears. CPM Assessment & Plan (12/13/2020 1:16 PM POWDER BLENDER AND POURER): Pt feels his symptoms are well controlled [...] 10/26/2019 Assessment & Plan (10/29/2019 7:17 PM POWDER BLENDER AND POURER): Chest pain is atypical in that it occurs only sometimes in his in various locations of his chest. I am suspicious that it is musculoskeletal, but would recommend a stress test. As his EKG is normal, imaging is not required. Biceps tendinitis of right upper extremity 11/25 Overview (11/25/2018): Added automatically from request for surgery [id number] Incomplete tear of right rotator cuff 11/25/2018 Overview (11/25/2018): Added automatically from request for surgery [id number] Open angle with borderline f indings and [...] ck. Assessment & Plan (12/11/2022 4:18 PM POWDER BLENDER AND POURER): Mild OAG vs suspect. Started on tx [...] ck. Assessment & Plan (11/28/2021 1:23 PM POWDER BLENDER AND POURER): Mild OAG vs suspect. IOP well controlled [...] irritation. Assessment & Plan (12/13/2020 1:21 PM POWDER BLENDER AND POURER): IOP stable on 1 class. Travatan is [...] OU Assessment & Plan (12/11/2022 4:19 PM POWDER BLENDER AND POURER): S/p RK OU Assessment & Plan (06/05/2022 3:57 PM CDT): S/p 16 incision RK. Stable. Observe. Assessment & Plan (11/28/2021 1:23 PM POWDER BLENDER AND POURER): S/p 16 incision RK OU Assessment & [...] Lifetime Dose Automatic Entry Manual Entr y Fluoro Time 3.1 minutes 0 minutes 3.1 minutes Air kerma at the reference point (Ka,r) 597 mGy 0 mGy 597 mGy DLP 365 mGycm 365 mGycm 0 mGycm
--- OUTSIDE RECORDS SUMMARY | 2025-06-24 12:16 | XMS_ITS | Encounter Summary ---
Author Organization [facility] Healthcare Address [address] [place] [address] Care Team Providers Care Machine Leather Trimmer Name Role Phone Shabbir White MD Primary Care Prov ider Kasia Maldonado MD Unavailable [phone] Gera Patricio MD Unavailable [phone] Miscellaneous, Not In File Unavailable Unava ilable Encounter Details Date Type Department Care Team (Late st Contact Info) Description 02/02/2025 [facility] Post Discharge Follow up phone call [facility] [address] [place] [address] Evangelina Khan Social History Tobacco Use Types Packs/Day Years Used Date Smoking Tobacco: Former Cigarettes 1 16 1 970 - 1986 Smokeless Tobacco: Never Alcohol Use Standard Drinks/Week Comments Yes 1 (1 standard drink = 0.6 oz pur e alcohol) nightly [facility] Utilities Answer Date Recorded In the past 12 months has [employer], gas, oil, or water [employer] threatened to shut off services in your home? No 01/31/2025 Social Connection and Isolation Panel Answer Date Recorded In a typical week, how many times do you talk on the phone with family, friends, or neighbors? More than three times a week 01/31/2025 How often do you get togethe r with friends or relatives? More than three times a week 01/31/2025 How often do you attend [facility] or alevism services? Never 01/31/2025 Do you belong to any clubs o r organizations such as jehovah's witness groups, unions, fraternal or athletic groups, or [...] any time in the past 12 m [facility], were you homeless or living in a half-way (including now)? No 01/31/2025 Personal Safety Answer Date Recorded Have you ever been in or are you currently in a harmful physical or emotional relationship or is someone making you feel afraid or unsafe? 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
--- OUTSIDE RECORDS SUMMARY | 2025-06-24 12:16 | XMS_ITS | Encounter Summary ---
Author Organization [facility] Address [address] [place] [address] Care Team Providers Care Malt Specifications Control Assistant Name Role Phone Shabbir White MD Primary Care Provider [phone] Encounter Details Date Type Department Care Team (Latest Contact Info) Description 06/23/2025 Travel Social History Tobacco Use Types Packs/Day [...] Info) Description 06/27/2025 12:30 PM CDT Appointment [facility] [address] [place] [address] Gera Patricio MD [address] [facility] [address] [place] [address] 06/29/2025 12:30 PM CDT Appointment [facility] [address] [place] [address] Gera Patricio MD [address] [facility] [address] [place] [address] 06/30/2025 12:30 PM CDT Appointment [facility] [address] [place] [address] Gera Patricio MD [address] [id number] 07/04/2025 12:30 PM CDT Appointment [facility] [address] [place] [address] Gera Patricio MD [address] [id number] 07/06/2025 12:30 PM CDT Appointment [facility] [address] [place] [address] Gera Patricio MD [address] [address] documented as of this encounter Visit Diagnoses Not on filedocumented in this encounter Care Teams Malt Specifications Control Assistant Relationship Specialty Start Date End Date Shabbir White MD [address] [place] [address] PCP - General 08/09/12 documented as of this encounter
--- OUTSIDE RECORDS SUMMARY | 2025-06-24 12:17 | XMS_ITS | Clinical Summary ---
Author Organization [facility] Address [address], [address] [address] Phone Care Team Providers Care Stitch Separator Name Role Phone Shabbir White MD Primary Care Provider + Quique Smiley DO Unavailable [phone] Allergies No known active allergies Medications [...] (HCV) Screening 1950 TdaP Immunization 1950 Cologuard 1995 Immunochemical Fecal Occult Blood 1995 Pneumococcal Immunization (5 0+ years) (1 of 1 - PCV) 2000 Zoster Immunization (1 of 2) 2000 SARS-COV-2 Immunization ( - season) 2024 07/19/2021, 12/22/2020, 11/24/2020 Respiratory Syncytial Virus (RSV) Immunization (Adult) (1 - 1-dose 75+ series) 2025 Influenza Immunization (#1) 2025 09/, 07/21/2020 Colonoscopy 08/15/2026 08/15/2016 Colorectal Cancer Screening 08/15/2026 Hepatitis B Immunization Aged Out No longer eligible based on patient's age to complete this topic Human Papillomavirus (HPV) Immunization Aged Out No longer eligible b ased [...] Most Recently Relevant to Health Maintenance Insurance [facility] Care Teams Stitch Separator Relationship Specialty Start Date End Date Shabbir White MD PCP - General Family Medicine 08/16/16 Quique Smiley DO Gastroenterology 08/16/16
--- OUTSIDE RECORDS SUMMARY | 2025-06-24 12:18 | XMS_ITS | Clinical Summary ---
Author Organization [facility] Address [address] [place] [address] Care Team Providers Care Doll Wig Maker Rooted Hair Name Role Phone Shabbir White MD Primary Care Provider [phone] Allergies No known active allergies Medications famotidine [...] Encounters Date Type Department Care Team Description 06/23/2025 5:43 AM CDT Hospital Encounter [facility] [address] [place] [address] Gera Patricio MD Arrived 06/23/2025 Travel 06/22/2025 5:52 AM CDT - 06/22/2025 11:59 PM CDT Hospital Encounter [facility] [address] [place] [address] Gera Patricio MD Arrived Discharge Disposition: Home or Self Care (Routine Discharge) 06/22/2025 Travel 06/16/2025 5:52 AM CDT - 06/16/2025 11:59 PM CDT Hospital Encounter [facility] [address] [place] [address] Gera Patricio MD Discharge Disposition: Home or Self Care (Routine Discharge) 06/16/2025 Travel 06/15/2025 5:56 AM CDT - 06/15/2025 11:59 PM CDT Hospital Encounter [facility] [address] [place] [address] Gera Patricio MD Discharge Disposition: Home or Self Care (Routine Discharge) 06/15/2025 Travel 06/13/2025 5:43 AM CDT - 06/13/2025 11:59 PM CDT Hospital Encounter [facility] [address] [place] [address] Grea Patricio MD Discharge Disposition: Home or Self Care (Routine Discharge) 06/13/2025 Travel 06/09/2025 5:41 AM CDT - 06/09/2025 11:59 PM CDT Hospital Encounter [facility] [address] [place] [address] Gera Patricio MD Discharge Disposition: Home or Self Care (Routine Discharge) 06/09/2025 Travel 06/06/2025 5:46 AM CDT - 06/06/2025 11:59 PM CDT Hospital Encounter [facility] [address] [place], [place] [address]Gera Huerta MD Discharge Disposition: Home or Self Care (Routine Discharge) 06/06/2025 Travel 06/02/2025 5:53 AM CDT - 06/02/2025 11:59 PM CDT Hospital Encounter [facility] [address] [place] [address] Gera Patricio MD Discharge Disposition: Home or Self Care (Routine Discharge) 06/02/2025 Travel 06/01/2025 6:08 AM CDT - 06/01/2025 11:59 PM CDT Hospital Encounter [facility] [address] [place] [address] Gera Patricio MD Discharge Disposition: Home or Self Care (Routine Discharge) 06/01/2025 Travel 05/26/2025 5:33 AM CDT - 05/26/2025 11:59 PM CDT Hospital Encounter [facility] [address] [place], [place] [address]Gera Huerta MD Discharge Disposition: Home or Self Care (Routine Discharge) 05/26/2025 Travel 05/23/2025 5:50 AM CDT - 05/23/2025 11:59 PM CDT Hospital Encounter [facility] [address] [place] [address] Gera Patricio MD Discharge Disposition: Home or Self Care (Routine Discharge) 05/23/2025 Travel 05/19/2025 5:48 AM CDT - 05/19/2025 11:59 PM CDT Hospital Encounter [facility] [address] [place] [address] Gera Patricio MD Discharge Disposition: Home or Self Care (Routine Discharge) 05/19/2025 Travel 05/18/2025 6:27 AM CDT - 05/18/2025 11:59 PM CDT Hospital Encounter [facility] [address] [place], [place] [address]Gera Huerta MD Discharge Disposition: Home or Self Care (Routine Discharge) 05/18/2025 Travel 05/16/2025 5:37 AM CDT - 05/16/2025 11:59 PM CDT Hospital Encounter [facility] [address] [place], [place] [address]Gera Huerta MD Discharge Disposition: Home or Self Care (Routine Discharge) 05/16/2025 Travel 04/27/2025 6:06 AM CDT - 04/27/2025 11:59 PM CDT Hospital Encounter [facility] [address] [place] [address] Gera Patricio MD Discharge Disposition: Home or Self Care (Routine Discharge) 04/27/2025 Travel 04/25/2025 6:00 AM CDT - 04/25/2025 11:59 PM CDT Hospital Encounter [facility] [address] [place] [address] Gera Patricio MD Discharge Disposition: Home or Self Care (Routine Discharge) 04/25/2025 Travel 04/21/2025 5:49 AM CDT - 04/21/2025 11:59 PM CDT Hospital Encounter [facility] [address] [place] [address] Gera Patricio MD Discharge Disposition: Home or Self Care (Routine Discharge) 04/20/2025 5:50 AM CDT - 04/20/2025 11:59 PM CDT Hospital Encounter [facility] [address] [place] [address] Gera Patricio MD Discharge Disposition: Home or Self Care (Routine Discharge) 04/20/2025 Travel 04/18/2025 5:49 AM CDT - 04/18/2025 11:59 PM CDT Hospital Encounter [facility] [address] [place] [address] Gera Patricio MD Discharge Disposition: Home or Self Care (Routine Discharge) 04/18/2025 Travel 04/14/2025 5:46 AM CDT - 04/14/2025 11:59 PM CDT Hospital Encounter [facility] [address] [place] [address] Gera Patricio MD Discharge Disposition: Home or Self Care (Routine Discharge) 04/14/2025 Travel 04/11/2025 5:46 AM CDT - 04/11/2025 11:59 PM CDT Hospital Encounter [facility] [address] [place] [address] Gera Patricio MD Discharge Disposition: Home or Self Care (Routine Discharge) 04/11/2025 Travel 04/06/2025 6:24 AM CDT - 04/06/2025 11:59 PM CDT Hospital Encounter [facility] [address] [place] [address] Gera Patricio MD Discharge Disposition: Home or Self Care (Routine Discharge) 04/06/2025 Travel 04/04/2025 5:47 AM CDT - 04/04/2025 11:59 PM CDT Hospital Encounter [facility] [address] [place] [address] Gera Patricio MD Discharge Disposition: Home or Self Care (Routine Discharge) 04/04/2025 Travel 03/31/2025 5:41 AM CDT - 03/31/2025 11:59 PM CDT Hospital Encounter [facility] [address] [place] [address] Gera Patricio MD Discharge Disposition: Home or Self Care (Routine Discharge) 03/30/2025 6:07 AM CDT - 03/30/2025 11:59 PM CDT Hospital Encounter [facility] [address] [place] [address] Gera Patricio MD Discharge Disposition: Home or Self Care (Routine Discharge) 03/30/2025 Travel 03/28/2025 6:20 AM CDT - 03/28/2025 11:59 PM CDT Hospital Encounter [facility] [address] [place] [address] Gera Patricio MD Discharge Disposition: Home or Self Care (Routine Discharge) 03/28/2025 Travel 03/24/2025 6:04 AM CDT - 03/24/2025 11:59 PM CDT Hospital Encounter [facility] [address] [place] [address] Gera Patricio MD Discharge Disposition: Home or Self Care (Routine Discharge) 03/24/2025 Travel from Last 3 Months Immunizations Immunization Administration [...] Info) Description 06/27/2025 12:30 PM CDT Appointment [facility] [address] [place] [address] Gera Patricio MD [address] [facility] [address] [place] [address] 06/29/2025 12:30 PM CDT Appointment [facility] [address] [place] [address] Gera Patricio MD [address] [place], [place] [id number] 06/30/2025 12:30 PM CDT Appointment [facility] [address] [place] [address] Gera Patricio MD [address] [place] [address] 07/04/2025 12:30 PM CDT Appointment [facility] [address] [place] [address] Gera Patricio MD [address] [place] [address] 07/06/2025 12:30 PM CDT Appointment [facility] [address] [place] [address] Gera Patricio MD [address] [place] [address] Health Maintenance Due Date Last Done Comments Hepatitis C 1968 Pneumococcal Vaccine: 50+ Years (2 of 2 - PPSV23) 01/19/2020 01/18/2019 RSV Immunization or 60+ Years (1 - 1-dose 75+ series) 2025 COVID-19 Vaccine ( - season) 2025 07/23/2022, 07/19/2021, 12/22/2020, Additional history exists Colorectal Cancer Screening Colonoscopy (10 Years) 01/26/2032 01/25/2022, 01/25/2022 DTaP, Tdap and Td Vaccines (4 - Td or Tdap) 03/31/2033 03/31/2023, 12/17/2012, 12/10/2004, Additional history exists Zoster Vaccines Completed 03/01/2024, 10/07/2023 Meningococcal B Vaccine Aged Out No l onger eligible based on patient's age to complete this topic Meningococcal Vaccine Aged Out No bert ubaldo eligible based on patient's age to complete this topic RSV Immunizations Under 20 Months Aged Out No longer eligible based on patient's age to complete this topic Procedures Procedure Name Priority Date/Time Associated Diagnosis Comments COLONOSCOPY Routine 01/25/2022 9:15 AM CDT from Last 3 Months or Most Recently Relevant to Health Maintenance [place] [address] [address] Care Teams Doll Wig Maker Rooted Hair Relationship Specialty Start Date End Date Shabbir White MD [address] [place] [id number] PCP - General 08/09/12
== END 2025-06-24 12:09 | disposition home or self-care (01) ==
PROVIDERS: PCP Nurse Practitioner Family; Visit Provider Nurse Practitioner Family
DX: R51.9 Headache, unspecified (principal); S09.90XA Unspecified injury of head, initial encounter; X58.XXXA Exposure to other specified factors, initial encounter
CPT/HCPCS: 70450

== ENCOUNTER 2025-08-02 12:08 | Outpatient (CLI) | payer BC, SELFPAY ==
[2025-08-02 13:51] LABS: Hematocrit 38.1 % (42.0-52.0); Hemoglobin 12.3 g/dL (14.0-18.0); Mean Corpuscular HGB Conc 32.3 g/dl (32-36); Mean Corpuscular Hemoglobin 29.9 pg (26-34); Mean Corpuscular Volume 92.5 fl (80-100); Platelet Count Result 295 k/mm3 (150-375); Red Blood Count 4.12 M/mm3 (4.6-6.20); White Blood Count 7.2 K/mm3 (4.5-10.0)
[2025-08-02 13:54] LABS: Add Urine Microscopic? NO; Appearance Urine Clear (Clear); Glucose Urine UA Negative (Negative); Leukocyte Esterase Ur Negative LEU/UL (Negative); Nitrate Urine Negative (Negative); Specific Grav Ur 1.015 (1.001-1.035)
--- OUTSIDE RECORDS SUMMARY | 2025-08-02 13:55 | XMS_ITS | Encounter Summary ---
Author Organization [facility] Address [address] [place] [address] Care Team Providers Care Magnet Valve Assembler Name Role Phone Shabbir White MD Primary Care Provider + Encounter Details Date Type Department Care Team (Late st Contact Info) Description 07/05/2025 Lab Requisition [facility] - DermPath Lab [address] [place] [address] Angela Young MD [address] [place] [address] Neoplasm of unspecified behavior of bone, soft tissue, and skin Social History Tobacco Use Types Packs/Day Years Used Date Smoking Tobacco: Never Assessed Sex and Gender Information Value Date Recorded Sex Assigned at Not on file Legal Sex Male 10:53 AM GRANTS ASSISTANT Gender Identity Not on file Sexual Orientation Not on file documented as of this encounter Plan of Treatment Not on file documented as of this encounter Procedures Procedure Name Priority Date/Time Associated Diagnosis Comments DERMATOPATHOLOGY Routine 07/04/2025 12:0 0 PM CDT Neoplasm of unspecified behavior of bone, soft tissue, and skin documented in this encounter Results * DERMATOPATHOLOGY (07/04/2025 12:00 PM CDT) Case Report Dermatopathology Report Case: [id number] Authorizing Provider: Angela Young MD Collected: 07/04/2025 12:00 PM Ordering Location: [facility] - Received: 07/06/2025 09:29 AM DermPath Lab Pathologist: Corrine Szymanski MD Specimen: Skin, right distal pretibial region 3:29 PM CDT DERMATOPATHOLOGY LABORATORY Final Diagnosis Specimen A. SKIN, right distal pretibial region: SQUAMOUS CELL CARCINOMA, WELL DIFFERENTIATED (C44.722) (see microscopic description) 3:29 PM CDT DERMATOPATHOLOGY LABORATORY at 1529 CDT Clinical History Neoplasm of Unspecified Behavior 3:29 PM CDT DERMATOPATHOLOGY LABORATORY Gross Description Specimen A: Received is one formalin filled container labeled with the patient's name and designated right distal pretibial region. The specimen consists of a shave biopsy measuring 9x8x2 mm. Jar 0. 3:29 PM CDT DERMATOPATHOLOGY LABORATORY Microscopic Description Specimen A. SKIN, right distal pretibial region: Arising in the epidermis and extending into the dermis there are irregularly shaped aggregates of keratinocytes showing evidence of premature cornification. Additional deeper sections were obtained and reviewed. 3:29 PM CDT DERMATOPATHOLOGY LABORATORY Disclaimer An external and internal positive and negative controls are appropriate for the histochemical, immunohistochemical and immunofluorescence stain(s) in this case (if any), except where stated explicitly. The performance characteristics of the stain(s) cited in this report were developed and its performance characteristic determined by the Dermatopathology Laboratory at [facility], directed by Dr. Zac Szymanski. These tests need not be, and therefore are not, approved by the [place] Food and Drug Administration. The tests are used for clinical purposes. Billing Codes Specimen Charges Stain Charges 85173 1 3:29 PM CDT DERMATOPATHOLOGY LABORATORY Embedded Images 3:29 PM CDT DERMATOPATHOLOGY LABORATORY Pathology/Cytolo gy TISSUE SPECIMEN FROM SKIN / Unknown 07/04/2025 12:00 PM CDT 07/06/2025 9:29 AM CDT us Angela Young MD LAB - PATHOLOGY/CYTOLOGY ORDERA BLES Final Result DERMATOPATHOLOGY LABORATORY [facility] - Department of Dermatology [address], [address] [phone] documented in this encounter Visit Diagnoses Diagnosis Neoplasm of unspecified behavior of bone, soft tissue, and skin documented in this encounter Care Teams Magnet Valve Assembler Relationship Specialty Start Date End Date Shabbir White MD [address] [address] PCP - General 11/24/18 documented as of this encounter
--- OUTSIDE RECORDS SUMMARY | 2025-08-02 13:55 | XMS_ITS | Clinical Summary ---
Author Organization [facility] Address [address], [address] [address] Phone Care Team Providers Care Shipping Supervisor Name Role Phone Shabbir White MD Primary Care Provider + Quique Smiley DO Unavailable [phone] Allergies No known active allergies Medications [...] 2000 Zoster Immunization (1 of 2) 2000 Respiratory Syncytial Virus (RSV) Immunization (Adult) (1 - 1-dose 75+ series) 2025 Influenza Immunization (#1) 06/20/202506/22, 07/21/2020 SARS-COV-2 Immunization ( - season) 2025 07/19/2021, 12/22/2020, 11/24/2020 Colonoscopy 08/15/2026 08/15/2016 Colorectal Cancer Screening 08/15/2026 [...] Most Recently Relevant to Health Maintenance Insurance [facility] Care Teams Shipping Supervisor Relationship Specialty Start Date End Date Shabbir White MD PCP - General Family Medicine 08/16/16 Quique Smiley DO Gastroenterology 08/16/16
--- OUTSIDE RECORDS SUMMARY | 2025-08-02 13:55 | XMS_ITS | Clinical Summary ---
Author Organization [facility] C Address [address] [place] [address] Care Team Providers Care Robot Technician Name Role Phone Shabbir White MD Primary Care Prov ider Kasia Maldonado MD Unavailable [phone] Gera Patricio MD Unavailable [phone] Miscellaneous, Not In File Unavailable Unava ilable [...] as needed for pain 02/01/20 25 Active Additional Information Patient not taking.Reported on 07/05/2025 latanoprost (XALATAN) 0.005 % ophthalmic solution Administer [...] 90 tablet 3 03/31/20 25 026 Active Additional Information Patient not taking.Reported on 07/05/2025 acetaminophen-code ine (TYLENOL with CODEINE #3) 300-30 mg per tablet Take 1 tablet by mouth every 4 (four) hours as needed 07/03/20 Active furosemide (LASIX) 20 mg tabletIndications: Bilateral lower extremity edema Take 1 tablet (20 mg total) by mouth daily as needed (SWELLING) 30 tablet 1 07/05/20 25 Active metoprolol XL (TOPROL-XL) 25 mg extended release tabletIndications: Coronary artery disease of [place] artery of [place] heart with stable angina pectoris Take 0.5 tablets (12.5 mg total) by mouth daily 45 tablet 3 07/05/20 25 026 Active Active Problems Problem Noted Date Diagnosed Date Bilateral lower extremity edema 07/05/2025 Claudication 03/31/2025 Coronary artery disease (CAD) excluded [...] now. Assessment & Plan (09/09/2023 1:08 PM DIGITAL MEDIA SALES CONSULTANT): 2/2 RK OU, patient having issues with I/R and having other health issues Would like to return lenses and try again at another time. Will return [place] lenses and RTC for refit in future [...] next exam OS RTC for dispense reF# [id number] Assessment & Plan (05/23/2023 4:00 PM CDT): 2/2 RK OU, possible OHx of amblyopia OD; patient states that OD (even prior to RK) has never seen as well as OS Educated patient on options, corneal GP (would need reverse kate design) vs scleral Patient concerned about dryness and comfort, will go ahead with scleral fit today Today with [place] 16.0, excellent comfort OU: OD: 450um central, minimal limbal. Slighlt toe impingement 360, better periphery with flat lens OS: 450um central, minimal limbal. Slight toe impitngement 360, better periphery with flat and better vision with FSE2 Flat periphery / FSE2 / aim for 280um central clearance with adjustments today BCVA 20/30- OD; 20/25-- OS RTC for dispense Ref# [id number] Assessment & Plan (12/11/2022 4:19 PM DIGITAL MEDIA SALES CONSULTANT): Patient is s/p 1 cut RK OU and has to change between several pairs of glasses through the day due to fluctuations in refractive error. Pt has been told about scleral lenses in the past and is interested in trying them. Will consult with Dr. Rivera and schedule and evaluation. Retinal drusen of both eyes 06/05/2022 Assessment & Plan (12/11/2022 4:19 PM DIGITAL MEDIA SALES CONSULTANT): Mild and stable. F/u annually. Assessment & [...] CPM. Assessment & Plan (11/28/2021 1:23 PM DIGITAL MEDIA SALES CONSULTANT): Continue ATs prn. Assessment & Plan (05/30/2021 2:28 PM CDT): PF ATs prn. Assessment & Plan (01/31/2021 1:46 PM CDT): Well controlled with artificial tears. CPM Assessment & Plan (12/13/2020 1:16 PM DIGITAL MEDIA SALES CONSULTANT): Pt feels his symptoms are well controlled [...] 10/26/2019 Assessment & Plan (10/29/2019 7:17 PM DIGITAL MEDIA SALES CONSULTANT): Chest pain is atypical in that it occurs only sometimes in his in various locations of his chest. I am suspicious that it is musculoskeletal, but would recommend a stress test. As his EKG is normal, imaging is not required. Biceps tendinitis of right upper extremity 11/25 Overview (11/25/2018): Added automatically from request for surgery [id number] Incomplete tear of right rotator cuff 11/25/2018 Overview (11/25/2018): Added automatically from request for surgery [id number] Open angle with borderline f indings and [...] ck. Assessment & Plan (12/11/2022 4:18 PM DIGITAL MEDIA SALES CONSULTANT): Mild OAG vs suspect. Started on tx [...] ck. Assessment & Plan (11/28/2021 1:23 PM DIGITAL MEDIA SALES CONSULTANT): Mild OAG vs suspect. IOP well controlled [...] irritation. Assessment & Plan (12/13/2020 1:21 PM DIGITAL MEDIA SALES CONSULTANT): IOP stable on 1 class. Travatan is [...] OU Assessment & Plan (12/11/2022 4:19 PM DIGITAL MEDIA SALES CONSULTANT): S/p RK OU Assessment & Plan (06/05/2022 3:57 PM CDT): S/p 16 incision RK. Stable. Observe. Assessment & Plan (11/28/2021 1:23 PM DIGITAL MEDIA SALES CONSULTANT): S/p 16 incision RK OU Assessment & Plan (05/30/2021 2:28 PM CDT): Hx of RK. Observe. Squamous cell carcinoma of skin of face 11/01/19 16 History of nonmelanoma skin cancer 09/26/2015 Dysesthesia 09/30/2014 Skin cancer 08/26/2014 Vitamin D deficiency disease 11/30/2013 Pain in soft tissues of limb 06/11/2011 Osteopenia 03/25/2011 Encounters Date Type Department Care Team Description 07/27/2025 Telephone [facility] Cardiology [address] [place] [address] Gera Patricio MD Fatigue; Anxiety 07/06/2025 Telephone [facility] Cardiology [address] [place] [address] Gera Patricio MD teeth cleaning 07/05/2025 2:45 PM CDT Office Visit [facility] Cardiology [address] [place] [address] Gera Patricio MD Coronary artery disease of [place] artery of [place] heart with stable angina pectoris (Primary Dx); Essential hypertension; Hyperlipidemia LDL goal <70; Bilateral lower extremity edema 06/07/2025 Orders Only [facility] Pathology Outreach [address] [place] [address] Farshad young, Eufemia Gallardo MD 05/02/2025 Telephone [facility] Cardiology [address] [place] [address] Gera Patricio MD from Last 3 Months Surgical History Surgery Date Site/Laterality Comments CATARACT EXTRACTION Cataract Surgery KERATOPLASTY RADIAL KERATOTOMY 10/20/1988 - 10/19/1989 Bilateral MOHS SURGERY 10/20/2018 - 11/19/2018 neck COLONOSCOPY ~2015 UPPER GASTROINTESTINAL ENDOSCOPY 10/20/2018 - 10/19/2019 SPERMATOCELECTOMY ~2017 EPIDIDYMECTOMY ORCHIECTOMY Right CARDIAC CATHETERIZATION 01/20/2025 N/A Procedure: LEFT HEART CATHETERIZATION WITH CORONARY ANGIOGRAPHY AND WITH OR WITHOUT LEFT VENTRICULOGRAM [id number]; Surgeon: Jassi Nur MD; Location: CARDIAC MANAGER WOUND; Service: Cardiovascular; Laterality: N/A; ABLATION SVT CAPSULOTOMY CARDIAC ASSIST DEVICE INSERTION Loop recorder CARDIAC ASSIST DEVICE REMOVAL Loop recorder HYDROCELE EXCISION / REPAIR SKIN CANCER EXCISION Medical History Medical History Date Comments Osteoporosis osteoporosis Kidney stone BPH (benign prostatic hyperplasia) SVT (supraventricular tachycardia) s/p ablation 2014 Chronic pain disorder Low back pain Prediabetes Glaucoma Ocular migraine hx NIKHIL (generalized anxiety disorder) A-fib (HCC) DJD (degenerative joint disease) GERD (gastroesophageal reflux disease) CAD (coronary artery disease) CA BG HTN (hypertension) HLD (hyperlipidemia) BCC (basal cell carcinoma of skin) SCCA (squamous cell carcinoma) of skin Low bone mass Vitamin D deficiency Adenomatous colon polyp Family History Medical History Relation Name Comments Osteoporosis Brother Glaucoma Mother Heart attack Mother Myocardial Infa rction; Osteoporosis Mother heavy ETOH use Sister 1 smoker Sister 1 Other Sister 4 Implantable Def ibrillator; Macular degeneration Neg Hx Relation Name Status Comments Brother (Age 70) sepsis Father (Age 92) Mother (Age 81) AR at age 76 Sister 1 (Age 61) [...] = 0.6 oz pur e alcohol) nightly [facility] Utilities Answer Date Recorded In the past 12 months has e [employer], gas, oil, or water [employer] threatened to shut off services in your [...] week 01/31/2025 How often do you attend [facility] or [facility] services? Never 01/31/2025 Do you belong to any clubs o r organizations such as quaker groups, unions, fraternal or athletic groups, or [...] time in the past 12 m [facility], were you homeless or living in a jail (including now)? No 01/31/2025 Personal Safety Answer Date Recorded Have you ever been in or are you currently in a harmful physical or emotional relationship or is someone making you feel afraid or unsafe? Denies 01/26/2025 Sex and Gender Information Value Date Recorded Sex Assigned at Not on file Legal Sex Male 2:36 AM DIGITAL MEDIA SALES CONSULTANT Gender Identity Not on file Sexual Orientation Not on file Obstetrics History Last Filed Vital Signs Vital Sign Reading Time Taken Comments Blood Pressure 118/60 07/05/2025 2:58 PM CDT Pulse 85 07/05/2025 2:58 PM CDT Temperature 36.3 C (97.3 F) 01/31/2025 12:29 PM CDT Respiratory Rate 16 03/03/2025 2:15 PM CDT Oxygen Saturation 97% 07/05/2025 2:58 PM CDT Inhaled Oxygen Concentration - - Weight 73.2 kg (161 lb 6.4 oz) 07/05/2025 2:58 P M CDT Height 170.2 cm (5' 7) 07/05/2025 2:58 PM CDT Body Mass Index 25.28 07/05/2025 2:58 PM CDT Plan of Treatment Health Maintenance Due Date Last Done Comments Colon Cancer Screening-Colonoscopy 1950 Depression Screening 1950 Hepatitis C Screening 1950 Hepatitis B Screening 1968 Abdominal Aortic Aneurysm (A AA) Screen 2015 Well Visit 65+ 2015 Pneumococcal vaccine 65+ (2 of 2 - PPSV23, PCV20, or PCV21) 03/15/2019 01/18/2019 Influenza Vaccine (#1) 2025 08/06/2024, 2019 Fall Risk Assessment 01/31/2026 01/31/2025 DTaP/Tdap/Td Vaccine (4 - Td or Tdap) 03/31/2033 03/31/2023, 12/17/2012, 12/10/2004, Additional history exists Zoster Vaccine Completed 03/01/2024, 10/07/2023 Medical Devices Implanted Type Area Prop Worker Device Identifier Shelf Expiration Date Model / Serial / Lot [employer] Plate Bone Low Profile 4 Hole Box Sternum Ti 115.103.04 - [id number] Implanted:Qty: 1 on 01/26/2025 by Kasia Maldonado MD at [facility] Plate N/A: Sternum [employer] 115.103.04 / / [employer] Plate Bone Low Profile 6 Hole H Shape Sternum Ti 115.102.06 - [id number] Implanted:Qty: 1 on 01/26/2025 by Kasia Maldonado MD at [facility] Plate N/A: Sternum [employer] 115.102.06 / / [employer] Plate Bone Low Profile 6 Hole O Shape Sternum Ti 115.104.06 - [id number] Implanted:Qty: 1 on 01/26/2025 by Kasia Maldonado MD at [facility] Plate N/A: Sternum [employer] 115.104.06 / / [employer] Screw Bone Slf Drl Full Thread Locking 3.5x18mm Ti 100.035.18 - [id number] Implanted:Qty: 16 on 01/26/2025 by Kasia Maldonado MD at [facility] Screw N/A: Sternum [employer] 100.035.18 / / Procedures Procedure Name Priority Date/Time Associated Diagnosis Comments SURGICAL PATHOLOGY Routine 06/07/2025 2: 10 PM CDT from Last 3 Months Results * Surgical pathology (06/07/2025 2:10 PM CDT) Skin, shave biopsy 06/07/2025 2:10 PM CDT 06/08/2025 6:06 AM CDT Narrative 06/09/2025 1:04 PM CDT EPIC results best viewed via link to PDF [facility] [address] [place] [address], [address], [place] [address] [email or web address] Note to Patients: This report may contain [...] OSEAS GOMEZ SEX: M : 1950 (Age: 75) Specimen Information: COLLECTED: 06/07/2025 RECEIVED: 06/08/2025 REPORTED: 06/09/2025 Submitting Physician Information: Eufemia Mcginnis MD [facility] [place], [address] [place] [address], DERMATOPATHOLOGY REPORT RESULTS DIAGNOSIS: A. SKIN, LEFT DORSAL HAND, SHAVE BIOPSY: BASAL CELL CARCINOMA B. SKIN, RIGHT CALF, SHAVE BIOPSY: SQUAMOUS CELL CARCINOMA, WELL-DIFFERENTIATED C. SKIN, RIGHT UPPER BACK LATERAL, SHAVE BIOPSY: BASAL CELL CARCINOMA D. SKIN, RIGHT UPPER BACK MEDIAL, SHAVE BIOPSY: BASAL CELL CARCINOMA, SUPERFICIAL ag/ajrr By this signature, I attest that the above diagnosis is based upon my personal examination of the slides(and/or other material indicated in the diagnosis). Chung Carter M.D. Report Electronically Reviewed and Signed Out By Chung Carter M.D. 06/09/2025 13:04:56 CLINICAL INFORMATION A. PINK PAPULE; BASAL CELL CARCINOMA B. ERYTHEMATOUS PAPULE WITH HYPERKERATOTIC SCALE; SQUAMOUS CELL CARCINOMA C-D. PINK PAPULE; BASAL CELL CARCINOMA SPECIMEN DATA MICROSCOPIC DESCRIPTION: A. Irregular aggregates of atypical basal epithelial cells with palisading of their peripheral nuclei are present within the dermis. (C44.91) B. Atypical keratinocytes with abundant pink cytoplasms extend from the undersurface of the epidermis into the reticular dermis. (C44.92) C. Irregular aggregates of atypical basal epithelial cells with palisading of their peripheral nuclei are present within the dermis. (C44.91) D. Emanating from the undersurface of the epidermis, there are aggregates of atypical basal epithelial cells with palisading of their peripheral nuclei. (C44.91) GROSS DESCRIPTION: A. Received in a formalin-containing bottle is a superficial fragment of dome- shaped, west, variegated and scaly skin measuring 0.7 by 0.6 by 0.2 cm. The surgical margin is inked blue. The specimen is sectioned into 2 pieces and submitted entirely in a single cassette. Due to shrinkage, measurements may be different than those at time of procedure. B. Received in a formalin-containing bottle is a superficial fragment of west- yellow, finely scaling and hair-bearing skin measuring 0.9 by 0.7 by 0.2 cm. The surgical margin is inked blue. The specimen bears a pink-west and scaly area measuring 0.6 by 0.5 cm that may abut the peripheral margin. The specimen is sectioned into 3 pieces and submitted entirely in a single cassette. Due to shrinkage, measurements may be different than those at the time of procedure. C. Received in a formalin-containing bottle is a superficial fragment of pale west, variegated, scaly and hair-bearing skin measuring 1.0 by 0.7 by 0.1 cm. The surgical margin is inked blue. The specimen is sectioned into 3 pieces and submitted entirely in a single cassette. Due to shrinkage, measurements may be different than those at time of procedure. D. Received in a formalin-containing bottle is a superficial fragment of pale west, scaly and semi-translucent skin measuring 1.0 by 1.0 by 0.1 cm. The surgical margin is inked blue. The specimen is sectioned into 4 pieces and submitted entirely in a single cassette. Due to shrinkage, measurements may be different than those at time of procedure. sxt/mxf ICD-9 ZSD.1469 ZSD.176 Clerical Data A; 74280 B; 36916 C; 75368 D; 64726 The characteristics of special, immunohistochemical, and immunofluorescence stains and in-situ hybridization tests performed by the [facility] were deemed acceptable in ongoing quality lab technician measures and in compliance with regulations drawn from the Clinical Laboratory Improvement Act vc3380 (CLIA '88). Control reactions for all stains performed were deemed adequate and appropriate by a pathologist prior to evaluation of patient tissue. Some diagnoses were rendered with the assistance of laboratory-developed tests utilizing analyte-specific reagents; the performance characteristic of these tests were determined by [facility] and are not cleared or approved by the [place] Food an Drug administration. Laboratory developed test may only be performed in a facility that is certified by the [facility] as a high-complexity laboratory under CLIA '88. These tests are used for clinical purposes and are not investigational. Eufemia Wan MD LAB PATHOLOGY ORDERABLES Final Result from Last 3 Months Insurance [facility] FEDERAL MEDICARE MEDICARE [facility] Advance Directives For more information, please contact: [phone] * Full Code (Latest Code Status on File) Date Activated Date Inactivated Comments 01/26/2025 4:03 PM 01/31/2025 9:06 PM Care Teams Robot Technician Relationship Specialty Start Date End Date Shabbir White MD PCP - General 02/07/17 Kasia Maldonado MD Surgeon Cardiothoracic Surgery 01/31/25 Gera Patricio MD [address] [place] [address], [address] [place] [address] Consulting Physician Cardiology 01/31/25 Miscellaneous, Not In File 01/31/25
--- OUTSIDE RECORDS SUMMARY | 2025-08-02 13:55 | XMS_ITS | Encounter Summary ---
Author Organization [facility] Healthcare Address [address] [place] [address] Care Team Providers Care Die Sinking Machine Operator Name Role Phone Shabbir White MD Primary Care Prov ider Kasia Maldonado MD Unavailable [phone] Gera Patricio MD Unavailable [phone] Miscellaneous, Not In File Unavailable Unava ilable Encounter Details Date Type Department Care Team (Late st Contact Info) Description 11/30/2021 Telephone [facility] Radiology [address] [facility] [address] [place] [phone] Kenna Boudreaux, RT Social History Tobacco [...] on file Legal Sex Male 2:36 AM INTERFACE ENGINEER Gender Identity Not on file Sexual Orientation Not on file documented as of this encounter Plan of Treatment Not on file documented as of this encounter Visit Diagnoses Not on filedocumented in this encounter Care Teams Die Sinking Machine Operator Relationship Specialty Start Date End Date Shabbir White MD PCP - General 02/07/17 Kasia Maldonado MD Surgeon Cardiothoracic Surgery 01/31/25 Gera Patricio MD [address] [address], [address] [place] [address] Consulting Physician Cardiology 01/31/25 Miscellaneous, Not In File 01/31/25 documented as of this encounter
--- OUTSIDE RECORDS SUMMARY | 2025-08-02 13:55 | XMS_ITS ---
Author Organization [facility] C Address [address] [place] [address] Care Team Providers Care Grader Meat Name Role Phone Shabbir White MD Primary Care Prov ider Kasia Maldonado MD Unavailable [phone] Gera Patricio MD Unavailable [phone] Miscellaneous, Not In File Unavailable Unava ilable [...] now. Assessment & Plan (09/09/2023 1:08 PM MORTAR CARRIER): 2/2 RK OU, patient having issues with I/R and having other health issues Would like to return lenses and try again at another time. Will return [place] lenses and RTC for refit in future [...] next exam OS RTC for dispense reF# [id number] Assessment & Plan (05/23/2023 4:00 PM CDT): 2/2 RK OU, possible OHx of amblyopia OD; patient states that OD (even prior to RK) has never seen as well as OS Educated patient on options, corneal GP (would need reverse kate design) vs scleral Patient concerned about dryness and comfort, will go ahead with scleral fit today Today with [place] 16.0, excellent comfort OU: OD: 450um central, minimal limbal. Slighlt toe impingement 360, better periphery with flat lens OS: 450um central, minimal limbal. Slight toe impitngement 360, better periphery with flat and better vision with FSE2 Flat periphery / FSE2 / aim for 280um central clearance with adjustments today BCVA 20/30- OD; 20/25-- OS RTC for dispense Ref# [id number] Assessment & Plan (12/11/2022 4:19 PM MORTAR CARRIER): Patient is s/p 1 cut RK OU and has to change between several pairs of glasses through the day due to fluctuations in refractive error. Pt has been told about scleral lenses in the past and is interested in trying them. Will consult with Dr. Rivera and schedule and evaluation. Retinal drusen of both eyes 06/05/2022 Assessment & Plan (12/11/2022 4:19 PM MORTAR CARRIER): Mild and stable. F/u annually. Assessment & [...] CPM. Assessment & Plan (11/28/2021 1:23 PM MORTAR CARRIER): Continue ATs prn. Assessment & Plan (05/30/2021 2:28 PM CDT): PF ATs prn. Assessment & Plan (01/31/2021 1:46 PM CDT): Well controlled with artificial tears. CPM Assessment & Plan (12/13/2020 1:16 PM MORTAR CARRIER): Pt feels his symptoms are well controlled [...] 10/26/2019 Assessment & Plan (10/29/2019 7:17 PM MORTAR CARRIER): Chest pain is atypical in that it occurs only sometimes in his in various locations of his chest. I am suspicious that it is musculoskeletal, but would recommend a stress test. As his EKG is normal, imaging is not required. Biceps tendinitis of right upper extremity 11/25 Overview (11/25/2018): Added automatically from request for surgery [id number] Incomplete tear of right rotator cuff 11/25/2018 Overview (11/25/2018): Added automatically from request for surgery [id number] Open angle with borderline f indings and [...] ck. Assessment & Plan (12/11/2022 4:18 PM MORTAR CARRIER): Mild OAG vs suspect. Started on tx [...] ck. Assessment & Plan (11/28/2021 1:23 PM MORTAR CARRIER): Mild OAG vs suspect. IOP well controlled [...] irritation. Assessment & Plan (12/13/2020 1:21 PM MORTAR CARRIER): IOP stable on 1 class. Travatan is [...] OU Assessment & Plan (12/11/2022 4:19 PM MORTAR CARRIER): S/p RK OU Assessment & Plan (06/05/2022 3:57 PM CDT): S/p 16 incision RK. Stable. Observe. Assessment & Plan (11/28/2021 1:23 PM MORTAR CARRIER): S/p 16 incision RK OU Assessment & [...]
--- OUTSIDE RECORDS SUMMARY | 2025-08-02 13:55 | XMS_ITS | Clinical Summary ---
Author Organization [facility] Address [address] [place] [address] Care Team Providers Care Drafting Instructor Name Role Phone Shabbir White MD Primary Care Provider + Source Comments [facility],non-owned Affiliates and Associated Physician Practices is amultiple site organization consisting of ambulatory clinics and hospital sitesin [place], [place], [place] and [place]. This disclosure is being madepursuant to the Care Everywhere program and may not contain all information available regarding this patient. 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 MANAGER Gender Identity Not on file Sexual Orientation Not on file Plan of Treatment Health Maintenance Due Date Last Done Comments COLOGUARD (AGES 45-75) - COL ON CA SCREENING 1950 COLON MONITORING 1950 COLONOSCOPY - COLON CA SCREENING 1950 CT COLONOGRAPHY - COLON CA SCREENING 1950 Colorectal Cancer Screening 1950 FIT - COLON CA SCREENING 1950 FLEX SIG - COLON CA SCREENING 1950 LIPID TESTING 1950 HEPATITIS C SCREENING 05/10/1968 DTAP/TDAP/TD VACCINES (1 - Tdap) 1969 PNEUMOCOCCAL VACCINE 50+ (1 of 1 - PCV) 2000 ZOSTER VACCINE (1 of 2) 2000 DEPRESSION SCREENING 10/20/2024 Respiratory Syncytial Virus (RSV) Vaccine Pt: or over 60 yrs (1 - 1-dose 75+ series) 2025 COVID-19 VACCINE (1 - 2023-2 5 season) 2025 INFLUENZA VACCINE (#1) 2025 HEPATITIS B VACCINE Aged Out No longe r eligible based on patient's age to complete this topic HIB VACCINE Aged Out No longer eligi ble based on patient's age to complete this topic HPV VACCINE Aged Out No longer eligi ble based on patient's age to complete this topic MENINGOCOCCAL (Group B) VACC INE SHARED DECISION-MAKING Aged Out No longer eligibl e based on patient's age to complete this topic MENINGOCOCCAL GROUPS A/C/Y/W VACCINE Aged Out No longer eligible b ased on patient's age to complete this topic Procedures Procedure Name Priority Date/Time Associated Diagnosis Comments DERMATOPATHOLOGY Routine 07/04/2025 12:0 0 PM CDT Neoplasm of unspecified behavior of bone, soft tissue, and skin from Last 3 Months Results * DERMATOPATHOLOGY (07/04/2025 12:00 PM CDT) Case Report Dermatopathology Report Case: [id number] Authorizing Provider: Angela Young MD Collected: 07/04/2025 12:00 PM Ordering Location: [facility] - Received: 07/06/2025 09:29 AM DermPath Lab [...] shave biopsy measuring 9x8x2 mm. Jar 0. 5 3:29 PM CDT DERMATOPATHOLOGY LABORATORY Microscopic Description Specimen A. SKIN, right distal pretibial region: Arising in the epidermis and extending into the dermis there are irregularly shaped aggregates of keratinocytes showing evidence of premature cornification. Additional deeper sections were obtained and reviewed. 5 3:29 PM CDT DERMATOPATHOLOGY LABORATORY Disclaimer An external and internal positive and negative controls are appropriate for the histochemical, immunohistochemical and immunofluorescence stain(s) in this case (if any), except where stated explicitly. The performance characteristics of the stain(s) cited in this report were developed and its performance characteristic determined by the Dermatopathology Laboratory at [facility], directed by Dr. Zac Szymanski. These tests need not be, and therefore are not, approved by the [place] Food and Drug Administration. The tests are used for clinical purposes. Billing Codes Specimen Charges Stain Charges 74944 1 5 3:29 PM CDT DERMATOPATHOLOGY LABORATORY Embedded Images 5 3:29 PM CDT DERMATOPATHOLOGY LABORATORY Pathology/Cytolo gy TISSUE SPECIMEN FROM SKIN / Unknown 07/04/2025 12:00 PM CDT 07/06/2025 9:29 AM CDT Angela Young MD LAB - PATHOLOGY/CYTOLOGY ORDERA BLES Final Result DERMATOPATHOLOGY LABORATORY [facility] - Department of Dermatology [facility] [address] [place] [address], [address] [phone] from Last 3 Months Insurance [facility] * Guarantor: OESAS GOMEZ Account Type Relation to Patient Date of Phone Billing Address Personal/Family [address] [address] SELF PAY NO INSURANCE Member Subscriber Plan / Payer (Ef fective for All Dates) Name:Oseas Gomez Member ID:Not on file Relation to Subscriber:Not on file Name:OSEAS GOMEZ Subscriber ID:Not on file Address: [address] [address] Payer ID:Not on file Group ID:Not on file Type:Self Pay Address: [place], [place] ANTH SELF PAY NO INSURANCE Member Subscriber Plan / Payer (Ef fective for All Dates) Name:Oseas Gomez Member ID:Not on file Relation to Subscriber:Not on file Name:OSEAS GOMEZ Subscriber ID:Not on file Address: [address] [place] [id number] Payer ID:Not on file Group ID:Not on file Type:Self Pay Address: [facility] * Guarantor: OSEAS GOMEZ Account Type Relation to Patient Date of Phone Billing Address Personal/Family [address] [place] [id number] SELF PAY NO INSURANCE Member Subscriber Plan / Payer (Ef fective for All Dates) Name:Oseas Gomez Member ID:Not on file Relation to Subscriber:Not on file Name:OSEAS GOMEZ Subscriber ID:Not on file Address: [address] [place] [id number] Payer ID:Not on file Group ID:Not on file Type:Self Pay Address: [facility] * Guarantor: OSEAS GOMEZ Account Type Relation to Patient Date of Phone Billing Address Personal/Family Spouse Care Teams Drafting Instructor Relationship Specialty Start Date End Date Shabbir White MD [address] [address] PCP - General 11/24/18
--- OUTSIDE RECORDS SUMMARY | 2025-08-02 13:55 | XMS_ITS | Encounter Summary ---
Author Organization [facility] Healthcare Address [address] [place] [address] Care Team Providers Care Rehab Trainer Name Role Phone Shabbir White MD Primary Care Prov ider Kasia Malodnado MD Unavailable [phone] Gera Patricio MD Unavailable Miscellaneous, Not In File Unavailable Unava ilable Encounter Details Date Type Department Care Team (Late st Contact Info) Description 02/02/2025 [facility] Post Discharge Follow up phone call [facility] [address] [place] [address] Evangelina Khan Social History Tobacco Use Types Packs/Day Years Used Date Smoking Tobacco: Former Cigarettes 1 16 1 970 - 1986 Smokeless Tobacco: Never Alcohol Use Standard Drinks/Week Comments Yes 1 (1 standard drink = 0.6 oz pur e alcohol) nightly [facility] Utilities Answer Date Recorded In the past 12 months has [employer], gas, oil, or water [employer] threatened to shut off services in your [...] week 01/31/2025 How often do you attend [facility] or pentecostal services? Never 01/31/2025 Do you belong to [...] any time in the past 12 m [facility], were you homeless or living in a long term (including now)? No 01/31/2025 Personal Safety Answer Date Recorded Have you ever been in or are you currently in a harmful physical or emotional relationship or is someone making you feel afraid or unsafe? Denies 01/26/2025 Sex and Gender Information Value Date Recorded Sex Assigned at Not on file Legal Sex Male 2:36 AM PRINCIPAL DEVELOPER Gender Identity Not on file Sexual Orientation Not on file documented as of this encounter Plan of Treatment Not on file documented as of this encounter Visit Diagnoses Not on filedocumented in this encounter Care Teams Rehab Trainer Relationship Specialty Start Date End Date Shabbir White MD PCP - General 02/07/17 Kasia Maldonado MD Surgeon Cardiothoracic Surgery 01/31/25 Gera Patricio MD [address] [place] [address] Consulting Physician Cardiology 01/31/25 Miscellaneous, Not In File 01/31/25 documented as of this encounter
[2025-08-02 14:04] LABS: INR 1.1; Prothrombin Time 14.3 Seconds (11.1-14.7)
[2025-08-02 14:05] LABS: Partial Thromboplastin Time 27.0 Seconds (22.3-36.8)
[2025-08-02 14:15] LABS: Anion Gap 6 mmol/L (4-12); Blood Urea Nitrogen 19 mg/dL (9-20); Calcium 9.1 mg/dL (8.4-10.2); Carbon Dioxide 29 mmol/L (22-30); Chloride 101 mmol/L (98-107); Estimated Glomerular Filt Rate > 60; Glucose 107 mg/dL (65-110); Potassium 4.5 mmol/L (3.4-5.0); Sodium 136 mmol/L (137-145)
== END 2025-08-02 12:09 | disposition home or self-care (01) ==
LOC: ANHSURGERY 12:12
PROVIDERS: PCP Family Medicine Adolescent Medicine; Visit Provider Neurological Surgery
DX: Z01.818 Encounter for other preprocedural examination (principal); M43.17 Spondylolisthesis, lumbosacral region
CPT/HCPCS: 36415; 80048; 81003; 85027; 85610; 85730

== ENCOUNTER 2025-08-16 16:42 | Inpatient (IN) | payer MEDICARE, BC, SELFPAY ==
[2025-08-02 12:31] VITALS: BP 127/74; PULSE 75; RESP 16; TEMP 36.4; O2SAT 96; BMI 25.0
--- NOTE | 2025-08-02 12:59 | PC.NURSE ---
[facility] has started construction of its new state of the art ER which will open Spring 2026. With this, we anticipate parking may be a challenge for some our surgical patients and families. Parking spaces are limited but are available for all Surgical, obstetrics, and ER patients sharing this lot. If you arrive and find you are having a hard time finding a parking space, please note that we understand the challenges, please drive around the hospital and park near Hospital Entrance 1. When you enter this entrance, you can ask a volunteer to direct or take you back to the surgical waiting area to check in. We appreciate everyone?s understanding of these expected challenges while we build for your future. Report to the Outpatient Waiting Room, entrance under the green pavilion located off [address], at time __8:30AM___ on date __08/16/25___. Planned Procedure Time: __10:30AM____.? Time changes happen often and if your time is changed the preop area will call you the afternoon before. - You and your visitor will be asked to self-screen and do not enter if you have any COVID symptoms. Please call surgeon if you need to reschedule. - A mask is optional within the hospital at this time. Patients may have clear liquids (water, carbonated beverages, clear teas, apple juice) until 3 hours prior to surgery (7:30am) with a maximum of 20 ounces. - No food from midnight until time of surgery and no smoking, or chewing tobacco (or any form of nicotine). No chewing gum, candy or mints. Take only the following medications with a SIP of water on the morning of surgery: __METOPROLOL MAY TAKE CLONAZEPAM NEEDED DO NOT STOP ANY OF YOUR OTHER PRESCRIPTION MEDICATIONS PRIOR TO SURGERY EXCEPT THE FOLLOWING Hold all vitamins and supplements for 3 days per anesthesiologist. LAST DOSE 08/12/25 Medications to discontinue per physician ___HOLD ASPIRIN & PLAVIX 7 DAYS PRE-OP PER DR GREY Date to take last dose 08/08/25 Please no make-up, nail montserratian, hairspray, perfume, deodorant, or body powder the day of surgery.? No jewelry (including any body piercings) or valuables the day of surgery, leave them at home.? Please take a shower or bath the night before, or the morning of, surgery with an antibacterial soap.? Wear comfortable, loose fitting clothing.? - Jewelry must be removed prior to entering the operating room.? Rings and piercings that are not removed may be cut off. - The hospital will not accept responsibility for valuables.? - Please leave all valuables, including medications, at home the day of surgery. If you are going home after surgery, a licensed parcel post truck driver must drive you home.? - NO public transportation without another adult if you receive anesthesia. - We recommend that an adult stay with you for 24 hours following discharge. - We also recommend that you do not drive, make important decision, drink alcoholic beverages, or take any drugs that were not prescribed by your health care provider for at least 24 hours after your discharge time. Follow any additional instructions given to you from your surgeon. Telephone instructions given to ____PATIENT and asked if any additional questions and then verbalized understanding. Patient advised to call surgeon office or pre surgery nurse liaison [phone] if any additional questions.
[2025-08-16] VITALS (15 sets, daily range): BP systolic 105–165; BP diastolic 55–82; PULSE 61–80; RESP 10–20; TEMP 36.2–36.9; O2SAT 94–99
--- NOTE | ~2025-08-16 | XR_ITS ---
EXAMINATION: XR fluoroscopy no charge DATE: 08/16/2025 15:00 INDICATION: L4-L5 and L5-S1 posterior lumbar interbody fusion TECHNIQUE: 3 fluoroscopic images of the lower lumbar spine were obtained during procedure performed by Dr. Desai. Radiologist was not present for the imaging or procedure. The amount of fluoroscopy time used during this procedure was 0.2 minutes. Total DAP was 1.660 Gycm^2. COMPARISON: MRI dated 06/08/2025 FINDINGS: Soft tissue retractors project over the soft tissues posterior to the lower lumbar spine. L3-L4 and L4-L5 discectomies with placement of interbody fusion devices at both levels. There is also been placement of bilateral pedicle screws at L3, L4 and L5 for posterior lumbar spinal fusion. Vertical rods have not yet been placed. The spinous processes at the lower lumbar spine upper lungs which could be due to laminectomies however assessment is limited by overpenetration related to lucent gas at the operative bed. IMPRESSION: 1. Fluoroscopy utilized during instrumented L4-S1 anterior and posterior spinal fusion procedure. See procedure note for further detail. Reviewed, dictated and finalized at location A.
--- OUTSIDE RECORDS SUMMARY | 2025-08-16 00:29 | XMS_ITS ---
Author Organization [facility] Address [address] [place] [address] Care Team Providers Care Inbound Call Center Agent Name Role Phone Shabbir White MD Primary Care Prov ider Kasia Maldonado MD Unavailable [phone] Gera Patricio MD Unavailable [phone] Miscellaneous, Not In File Unavailable Unava ilable [...] now. Assessment & Plan (09/09/2023 1:08 PM COMPUTER PROGRAMMING PROFESSOR): 2/2 RK OU, patient having issues with I/R and having other health issues Would like to return lenses and try again at another time. Will return [place] lenses and RTC for refit in future [...] next exam OS RTC for dispense reF# [id number] Assessment & Plan (05/23/2023 4:00 PM CDT): 2/2 RK OU, possible OHx of amblyopia OD; patient states that OD (even prior to RK) has never seen as well as OS Educated patient on options, corneal GP (would need reverse kate design) vs scleral Patient concerned about dryness and comfort, will go ahead with scleral fit today Today with [place] 16.0, excellent comfort OU: OD: 450um central, minimal limbal. Slighlt toe impingement 360, better periphery with flat lens OS: 450um central, minimal limbal. Slight toe impitngement 360, better periphery with flat and better vision with FSE2 Flat periphery / FSE2 / aim for 280um central clearance with adjustments today BCVA 20/30- OD; 20/25-- OS RTC for dispense Ref# [id number] Assessment & Plan (12/11/2022 4:19 PM COMPUTER PROGRAMMING PROFESSOR): Patient is s/p 1 cut RK OU and has to change between several pairs of glasses through the day due to fluctuations in refractive error. Pt has been told about scleral lenses in the past and is interested in trying them. Will consult with Dr. Rivear and schedule and evaluation. Retinal drusen of both eyes 06/05/2022 Assessment & Plan (12/11/2022 4:19 PM COMPUTER PROGRAMMING PROFESSOR): Mild and stable. F/u annually. Assessment & [...] CPM. Assessment & Plan (11/28/2021 1:23 PM COMPUTER PROGRAMMING PROFESSOR): Continue ATs prn. Assessment & Plan (05/30/2021 2:28 PM CDT): PF ATs prn. Assessment & Plan (01/31/2021 1:46 PM CDT): Well controlled with artificial tears. CPM Assessment & Plan (12/13/2020 1:16 PM COMPUTER PROGRAMMING PROFESSOR): Pt feels his symptoms are well controlled [...] 10/26/2019 Assessment & Plan (10/29/2019 7:17 PM COMPUTER PROGRAMMING PROFESSOR): Chest pain is atypical in that it occurs only sometimes in his in various locations of his chest. I am suspicious that it is musculoskeletal, but would recommend a stress test. As his EKG is normal, imaging is not required. Biceps tendinitis of right upper extremity 11/25 Overview (11/25/2018): Added automatically from request for surgery [id number] Incomplete tear of right rotator cuff 11/25/2018 Overview (11/25/2018): Added automatically from request for surgery [id number] Open angle with borderline f indings and [...] ck. Assessment & Plan (12/11/2022 4:18 PM COMPUTER PROGRAMMING PROFESSOR): Mild OAG vs suspect. Started on tx [...] ck. Assessment & Plan (11/28/2021 1:23 PM COMPUTER PROGRAMMING PROFESSOR): Mild OAG vs suspect. IOP well controlled [...] irritation. Assessment & Plan (12/13/2020 1:21 PM COMPUTER PROGRAMMING PROFESSOR): IOP stable on 1 class. Travatan is [...] OU Assessment & Plan (12/11/2022 4:19 PM COMPUTER PROGRAMMING PROFESSOR): S/p RK OU Assessment & Plan (06/05/2022 3:57 PM CDT): S/p 16 incision RK. Stable. Observe. Assessment & Plan (11/28/2021 1:23 PM COMPUTER PROGRAMMING PROFESSOR): S/p 16 incision RK OU Assessment & [...]
--- OUTSIDE RECORDS SUMMARY | 2025-08-16 00:29 | XMS_ITS | Clinical Summary ---
[facility] Address [address] [place] [address] Care Team Providers Care Compress Machine Operator Name Role Phone Shabbir White MD Primary Care Prov ider Kasia Maldonado MD Unavailable [phone] Gera Patricio MD Unavailable [phone] Miscellaneous, Not In File Unavailable Unava ilable [...] extended release tabletIndications: 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 Take 0.5 [...] now. Assessment & Plan (09/09/2023 1:08 PM SCREWDOWN OPERATOR): 2/2 RK OU, patient having issues with I/R and having other health issues Would like to return lenses and try again at another time. Will return [place] lenses and RTC for refit in future [...] next exam OS RTC for dispense reF# [id number] Assessment & Plan (05/23/2023 4:00 PM CDT): 2/2 RK OU, possible OHx of amblyopia OD; patient states that OD (even prior to RK) has never seen as well as OS Educated patient on options, corneal GP (would need reverse kate design) vs scleral Patient concerned about dryness and comfort, will go ahead with scleral fit today Today with [place] 16.0, excellent comfort OU: OD: 450um central, minimal limbal. Slighlt toe impingement 360, better periphery with flat lens OS: 450um central, minimal limbal. Slight toe impitngement 360, better periphery with flat and better vision with FSE2 Flat periphery / FSE2 / aim for 280um central clearance with adjustments today BCVA 20/30- OD; 20/25-- OS RTC for dispense Ref# [id number] Assessment & Plan (12/11/2022 4:19 PM SCREWDOWN OPERATOR): Patient is s/p 1 cut RK OU and has to change between several pairs of glasses through the day due to fluctuations in refractive error. Pt has been told about scleral lenses in the past and is interested in trying them. Will consult with Dr. Rivera and schedule and evaluation. Retinal drusen of both eyes 06/05/2022 Assessment & Plan (12/11/2022 4:19 PM SCREWDOWN OPERATOR): Mild and stable. F/u annually. Assessment [...] CPM. Assessment & Plan (11/28/2021 1:23 PM SCREWDOWN OPERATOR): Continue ATs prn. Assessment & Plan (05/30/2021 2:28 PM CDT): PF ATs prn. Assessment & Plan (01/31/2021 1:46 PM CDT): Well controlled with artificial tears. CPM Assessment & Plan (12/13/2020 1:16 PM SCREWDOWN OPERATOR): Pt feels his symptoms are well [...] 10/26/2019 Assessment & Plan (10/29/2019 7:17 PM SCREWDOWN OPERATOR): Chest pain is atypical in that it occurs only sometimes in his in various locations of his chest. I am suspicious that it is musculoskeletal, but would recommend a stress test. As his EKG is normal, imaging is not required. Biceps tendinitis of right upper extremity 11/25 Overview (11/25/2018): Added automatically from request for surgery [id number] Incomplete tear of right rotator cuff 11/25/2018 Overview (11/25/2018): Added automatically from request for surgery [id number] Open angle with borderline f indings and [...] ck. Assessment & Plan (12/11/2022 4:18 PM SCREWDOWN OPERATOR): Mild OAG vs suspect. Started on [...] ck. Assessment & Plan (11/28/2021 1:23 PM SCREWDOWN OPERATOR): Mild OAG vs suspect. IOP well [...] irritation. Assessment & Plan (12/13/2020 1:21 PM SCREWDOWN OPERATOR): IOP stable on 1 class. Travatan [...] OU Assessment & Plan (12/11/2022 4:19 PM SCREWDOWN OPERATOR): S/p RK OU Assessment & Plan (06/05/2022 3:57 PM CDT): S/p 16 incision RK. Stable. Observe. Assessment & Plan (11/28/2021 1:23 PM SCREWDOWN OPERATOR): S/p 16 incision RK OU Assessment & Plan (05/30/2021 2:28 PM CDT): Hx of RK. Observe. Squamous cell carcinoma of skin of face 11/01/19 16 History of nonmelanoma skin cancer 09/26/2015 Dysesthesia 09/30/2014 Skin cancer 08/26/2014 Vitamin D deficiency disease 11/30/2013 Pain in soft tissues of limb 06/11/2011 Osteopenia 03/25/2011 Encounters Date Type Department Care Team Description 07/27/2025 Telephone [facility] Cardiology [address] [place] [address] Gera Patricio MD Fatigue; Anxiety 07/06/2025 Telephone [facility] Cardiology [address] [place] [address] Gera Patricio MD teeth cleaning 07/05/2025 2:45 PM CDT Office Visit [facility] Cardiology [address] [place] [address] Gera Patricio MD 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 (Primary Dx); Essential hypertension; Hyperlipidemia LDL goal <70; Bilateral lower extremity edema 06/07/2025 Orders Only [facility] Medicine Pathology Outreach [address] [place] [address] Farshad young, Eufemia Gallardo MD from Last 3 Months Surgical History Surgery Date Site/Laterality Comments CATARACT EXTRACTION Cataract Surgery KERATOPLASTY RADIAL KERATOTOMY 10/20/1988 - 10/19/1989 Bilateral MOHS SURGERY 10/20/2018 - 11/19/2018 neck COLONOSCOPY ~2015 UPPER GASTROINTESTINAL ENDOSCOPY 10/20/2018 - 10/19/2019 SPERMATOCELECTOMY ~2017 EPIDIDYMECTOMY ORCHIECTOMY Right CARDIAC CATHETERIZATION 01/20/2025 N/A Procedure: LEFT HEART CATHETERIZATION WITH CORONARY ANGIOGRAPHY AND WITH OR WITHOUT LEFT VENTRICULOGRAM 29580; Surgeon: Jassi Nur MD; Location: CARDIAC TROUBLE LOCATER; Service: Cardiovascular; Laterality: N/A; ABLATION SVT CAPSULOTOMY [...] sepsis Father (Age 92) Mother (Age 81) [place] at age 76 Sister 1 (Age 61) [...] = 0.6 oz pur e alcohol) nightly [facility] Utilities Answer Date Recorded In the past [...] often do you attend chur ch or buddhist services? Never 01/31/2025 Do you belong to any clubs o r organizations such as samaritan groups, unions, fraternal or athletic groups, or [...] any time in the past 12 m [facility], were you homeless or living in a prison (including now)? No 01/31/2025 Personal Safety Answer Date Recorded Have you ever been in or are you currently in a harmful physical or emotional relationship or is someone making you feel afraid or unsafe? Denies 01/26/2025 Sex and Gender Information Value Date Recorded Sex Assigned at Not on file Legal Sex Male 2:36 AM SCREWDOWN OPERATOR Gender Identity Not on file Sexual [...] 03/01/2024, 10/07/2023 Medical Devices Implanted Type Area Stack Yield Engineer Device Identifier Shelf Expiration Date Model / Serial / Lot [employer] Plate Bone Low Profile 4 Hole Box Sternum Ti 115.103.04 - [id number] Implanted:Qty: 1 on 01/26/2025 by Kasia Maldonado MD at [facility] Plate N/A: Sternum [employer] 115.103.04 / / [employer] Plate Bone Low Profile 6 Hole H Shape Sternum Ti 115.102.06 - [id number] Implanted:Qty: 1 on 01/26/2025 by Kasia Maldonado MD at [facility] Plate N/A: Sternum [employer] 115.102.06 / / [employer] Plate Bone Low Profile 6 Hole O Shape Sternum Ti 115.104.06 - [id number] Implanted:Qty: 1 on 01/26/2025 by Kasia Maldonado MD at [facility] Plate N/A: Sternum [employer] 115.104.06 / / [employer] Screw Bone Slf Drl Full Thread Locking 3.5x18mm Ti 100.035.18 - [id number] Implanted:Qty: 16 on 01/26/2025 by Kasia Maldonado MD at [facility] Screw N/A: Sternum [employer] 100.035.18 / / Procedures Procedure Name Priority Date/Time Associated Diagnosis Comments SURGICAL PATHOLOGY Routine 06/07/2025 2: 10 PM CDT from Last 3 Months Results * Surgical pathology (06/07/2025 2:10 PM CDT) Skin, shave biopsy 06/07/2025 2:10 PM CDT 06/08/2025 6:06 AM CDT Narrative 06/09/2025 1:04 PM CDT EPIC results best viewed via link to PDF [facility], [address], [place] [address] [email or web address] Note to Patients: This report may [...] 06/08/2025 REPORTED: 06/09/2025 Submitting Physician Information: Eufemia Mcgninis MD [facility]at[facility] [place], [address] [place] [address], DERMATOPATHOLOGY REPORT RESULTS DIAGNOSIS: A. SKIN, LEFT [...] sxt/mxf ICD-9 ZSD.1469 ZSD.176 Clerical Data A; 56488 B; 81277 C; 20536 D; 34839 The characteristics of special, immunohistochemical, and immunofluorescence stains and in-situ hybridization tests performed by the [facility] were deemed acceptable in ongoing associate quality engineer measures and in compliance with regulations drawn from the Clinical Laboratory Improvement Act ex8195 (CLIA '88). Control reactions for all stains performed were deemed adequate and appropriate by a pathologist prior to evaluation of patient tissue. Some diagnoses were rendered with the assistance of laboratory-developed tests utilizing analyte-specific reagents; the performance characteristic of these tests were determined by [facility] and are not cleared or approved by the [place] Food an Drug administration. Laboratory developed test may only be performed in a facility that is certified by the [facility] as a high-complexity laboratory under CLIA '88. These tests are used for clinical purposes and are not investigational. Eufemia Wan MD LAB PATHOLOGY ORDERABLES Final Result from Last 3 Months Insurance [facility] FEDERAL MEDICARE MEDICARE [facility] Address: [address] [address] [place] [address] [facility] [employer]AL Advance Directives For more information, please contact: [phone] * Full Code (Latest Code Status on File) Date Activated Date Inactivated Comments 01/26/2025 4:03 PM 01/31/2025 9:06 PM Care Teams Compress Machine Operator Relationship Specialty Start Date End Date Shabbir White MD PCP - General 02/07/17 Kasia Maldonado MD Surgeon Cardiothoracic Surgery 01/31/25 Gera Patricio MD [address] [place] [address] Consulting Physician Cardiology 01/31/25 Miscellaneous, Not In File 01/31/25
--- OUTSIDE RECORDS SUMMARY | 2025-08-16 00:29 | XMS_ITS | Encounter Summary ---
Author Organization [facility] Address [address] [place] [address] Care Team Providers Care Manager Traffic Name Role Phone Shabbir White MD Primary Care Provider + Encounter Details Date Type Department Care Team (Late st Contact Info) Description 07/05/2025 Lab Requisition [facility] - DermPath Lab [address] [place] [address] Angela Young MD [address] [place] [address] Neoplasm of unspecified behavior of bone, soft tissue, and skin Social History Tobacco Use Types Packs/Day Years Used Date Smoking Tobacco: Never Assessed Sex and Gender Information Value Date Recorded Sex Assigned at Not on file 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 Zac Szymanski. These tests need not be, and therefore are not, approved by the [place] Food and Drug Administration. The tests are used for clinical purposes. Billing Codes Specimen Charges Stain Charges 02673 1 3:29 PM CDT DERMATOPATHOLOGY LABORATORY Embedded Images 3:29 PM CDT DERMATOPATHOLOGY LABORATORY Pathology/Cytolo gy TISSUE SPECIMEN FROM SKIN / Unknown 07/04/2025 12:00 PM CDT 07/06/2025 9:29 AM CDT us Angela Young MD LAB - PATHOLOGY/CYTOLOGY ORDERA BLES Final Result DERMATOPATHOLOGY LABORATORY [facility] - Department of Dermatology [address], [address] [phone] documented in this encounter Visit Diagnoses Diagnosis Neoplasm of unspecified behavior of bone, soft tissue, and skin documented in this encounter Care Teams Manager Traffic Relationship Specialty Start Date End Date Shabbir White MD [address] [address] PCP - General 11/24/18 documented as of this encounter
--- OUTSIDE RECORDS SUMMARY | 2025-08-16 00:29 | XMS_ITS | Clinical Summary ---
Author Organization [facility] Address [address] [facility] [place] [address] Care Team Providers Care Health Insurance Sales Agent Name Role Phone Shabbir White MD Primary Care Provider + Source Comments [facility],non-owned Affiliates and Associated Physician Practices is amultiple site organization consisting of ambulatory clinics and hospital sitesin [place], [place], [place] and [place]. This disclosure is being madepursuant to the Care Everywhere program and may not contain all information available regarding this patient. 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 Zac Szymanski. These tests need not be, and therefore are not, approved by the [place] Food and Drug Administration. The tests are used for clinical purposes. Billing Codes Specimen Charges Stain Charges 80581 1 5 3:29 PM CDT DERMATOPATHOLOGY LABORATORY Embedded Images 5 3:29 PM CDT DERMATOPATHOLOGY LABORATORY Pathology/Cytolo gy TISSUE SPECIMEN FROM SKIN / Unknown 07/04/2025 12:00 PM CDT 07/06/2025 9:29 AM CDT Angela Young MD LAB - PATHOLOGY/CYTOLOGY ORDERA BLES Final Result DERMATOPATHOLOGY LABORATORY [facility] - Department of Dermatology [facility] [address] [place] [address], [address] [phone] from Last 3 Months Insurance [facility] * Guarantor: OSEAS GOMEZ Account Type Relation to Patient Date of Phone Billing Address Personal/Family [address] [place] [address] SELF PAY NO INSURANCE Member Subscriber Plan / Payer (Ef fective for All Dates) Name:Oseas Gomez Member ID:Not on file Relation to Subscriber:Not on file Name:OSEAS GOMEZ Subscriber ID:Not on file Address: [address] [place] [address] Payer ID:Not on file Group ID:Not on file Type:Self Pay Address: [place], [place] ANTH SELF PAY NO INSURANCE Member Subscriber Plan / Payer (Ef fective for All Dates) Name:Oseas Gomez Member ID:Not on file Relation to Subscriber:Not on file Name:OSEAS GOMEZ Subscriber ID:Not on file Address: [address] [place] [phone] Payer ID:Not on file Group ID:Not on file Type:Self Pay Address: [facility] * Guarantor: OSEAS GOMEZ Account Type Relation to Patient Date of Phone Billing Address Personal/Family [address] [place] [phone] SELF PAY NO INSURANCE Member Subscriber Plan / Payer (Ef fective for All Dates) Name:Oseas Gomez Member ID:Not on file Relation to Subscriber:Not on file Name:OSEAS GOMEZ Subscriber ID:Not on file Address: [address] [place] [phone] Payer ID:Not on file Group ID:Not on file Type:Self Pay Address: [facility] * Guarantor: OSEAS GOMEZ Account Type Relation to Patient Date of Phone Billing Address Personal/Family Spouse Care Teams Health Insurance Sales Agent Relationship Specialty Start Date End Date Shabbir White MD [address] [address] PCP - General 11/24/18
--- OUTSIDE RECORDS SUMMARY | 2025-08-16 00:29 | XMS_ITS | Clinical Summary ---
Author Organization [facility] Address [address], [address] [address] Phone Care Team Providers Care Belt Notcher Name Role Phone Shabbir White MD Primary Care Provider + Quique Smiley DO Unavailable Allergies No known active allergies Medications polyethylene [...] Most Recently Relevant to Health Maintenance Insurance [facility] Care Teams Belt Notcher Relationship Specialty Start Date End Date Shabbir White MD PCP - General Family Medicine 08/16/16 Quique Smiley DO Gastroenterology 08/16/16
--- OUTSIDE RECORDS SUMMARY | 2025-08-16 00:29 | XMS_ITS | Encounter Summary ---
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
--- OUTSIDE RECORDS SUMMARY | 2025-08-16 00:29 | XMS_ITS | Encounter Summary ---
Author Organization [facility] Address [address] [place] [address] Care Team Providers Care Clinic Office Coordinator Name Role Phone Shabbir White MD Primary Care Prov ider Kasia Maldonado MD Unavailable [phone] Gera Patricio MD Unavailable [phone] Miscellaneous, Not In File Unavailable Unava ilable Encounter Details Date Type Department Care Team (Late st Contact Info) Description 02/02/2025 [facility] Post Discharge Follow up phone call [facility] [address] [place] [address] Evangelina Khan Social History Tobacco Use Types Packs/Day Years Used Date Smoking Tobacco: Former Cigarettes 1 16 1 970 - 1986 Smokeless Tobacco: Never Alcohol Use Standard Drinks/Week Comments Yes 1 (1 standard drink = 0.6 oz pur e alcohol) nightly [facility] Utilities Answer Date Recorded In the past 12 months has [employer], gas, oil, or water [address] [employer] threatened to shut off services in your [...] week 01/31/2025 How often do you attend [facility] or restoration services? Never 01/31/2025 Do you belong to [...] any time in the past 12 m [facility], were you homeless or living in a fpc (including now)? No 01/31/2025 Personal Safety Answer Date Recorded Have you ever been in or are you currently in a harmful physical or emotional relationship or is someone making you feel afraid or unsafe? 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
[2025-08-16] MEDS: LACTATED RINGERS 1,000 ML 30 ML IV CONT ×2 (09:30→15:05)
--- NOTE | 2025-08-16 11:10 | PM.IMHP ---
H&P: HPI History of Present Illness Date/Time: 08/16/25 11:10 Chief Complaint: Back and leg pain Narrative: Nino is for L4-5 and L5-S1 posterior lumbar interbody fusion to treat his back and lower extremity discomfort. He is a 74-year-old gentleman with a progressive history of problems related to his low back and especially his right lower extremity. The pain extends both left and right but is more on the right and extends as mentioned down the right lower extremity nonspecifically below the knee and into the groin area. This is worse when he stands and walks and better if he sits down. That his comfort is very consistent and at times severe and limiting. He does not report specific muscle group weakness or dermatomal numbness. He has not having any bowel or bladder difficulty. He has had this pain for a year progressively. He has participated in physical therapy and also had injections performed by Dr. Kc at [facility]. we recently reviewed his MRI of the cervical spine which did not demonstrate any significant compressive pathology on the spinal cord. He is here to discuss upcoming surgery. Review of Systems Review of Systems: All systems reviewed & are unremarkable except as noted in HPI and below Denies chills, Denies fever, Denies weight gain and Denies weight loss Eyes Denies change in vision and Denies diplopia ENT Denies disequilibrium Card Denies chest pain and Denies dyspnea Resp Denies cough and Denies dyspnea GI Denies abdominal pain, Denies change in bowel habits, Denies fecal incontinence and Denies vomiting Denies hematuria, Denies oliguria, Denies difficulty urinating, Denies dysuria, Denies urinary frequency, Denies urinary hesitancy, Denies urinary incontinence and Denies urinary urgency Musc Reports as per HPI Skin/ Breast Reports system reviewed and no additional complaints, except as documented Neuro Reports as per HPI Psych Reports no additional complaints, Denies depression and Denies hopelessness Endo Reports no additional complaints and Denies polyuria Shaun/ Lymph Reports no additional complaints Aller/ Immun Reports no additional complaints [facility] Past Medical History Medical History BMI 24.0-24.9, adult Surgical History Surgical History History of coronary artery bypass graft (01/2025) X4 History of orchiectomy, unilateral (04/2024) Right for persistent orchalgia History of epididymectomy (08/2023) right Family History Family History Father Hypertension Mother Osteoporosis Sibling Breast cancer Other Family history of glaucoma Family history of osteoporosis Social History Social History Years smoked: 20 Smoking status: Former smoker Tobacco type: cigarettes Second hand tobacco smoke exposure: No Smoking end date: 08/14/86 Alcohol intake: current Substance use: never Substance use type: does not use Do You Feel Safe in your Home?: Yes Lack of Transportation: No Lack of Food: Never True Current Housing: I Have Housing Concerned About Future Housing: No Difficulty Paying Gas/Electric Bills: No Difficulty Paying for Meds: No Currently Unemployed: No Education: Master's Degree or Higher Difficulty w/ Childcare or Family Care: No Living arrangements: with family Additional living arrangements comments: 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 Spiritual care concerns: No Meds Home Medications and Allergies Home Medications ?Medication ?Instructions ?Recorded ?Confirmed ?Type latanoprost 0.005 % eye drops 1 drp EACH EYE HS 05/17/24 08/11/25 History (Xalatan) vitamins A,C,R-pytr-jmjunb 4,296 1 cap PO QAM 08/16/24 08/11/25 History mcg-226 mg-90 mg capsule (PreserVision AREDS) finasteride 5 mg tablet 5 mg PO DAILY #90 tabs 12/05/24 08/11/25 Rx clopidogrel 75 mg tablet (Plavix) 75 mg PO DAILY 02/25/25 08/16/25 History rosuvastatin 20 mg tablet 20 mg PO DAILY 02/25/25 08/11/25 History aspirin 81 mg tablet,delayed 81 mg PO ONCE 03/17/25 08/16/25 History release famotidine 20 mg tablet 20 mg PO BID 05/17/25 08/16/25 History triamcinolone acetonide 0.1 % 1 applic topical BID PRN skin 05/17/25 08/11/25 History topical cream irritation acetaminophen 300 mg-codeine 30 mg 1 tablet PO QID PRN pain #60 tabs 07/29/25 08/11/25 Rx tablet acetaminophen 500 mg tablet 500 mg PO Q6H PRN pain 08/02/25 08/11/25 History (Acetaminophen Pain Relief) carboxymethyl 0.5 %-glycerin 1 1 drp EACH EYE TID PRN dry eye(s) 08/02/25 08/11/25 History %-polysorb 80 0.5 %-PF eye dropperette (Refresh Optive Advanced (PF)) clonazepam 0.5 mg disintegrating 0.5 mg PO BID PRN anxiety 08/02/25 08/11/25 History tablet furosemide 20 mg tablet 20 mg PO DAILY PRN edema 08/02/25 08/11/25 History metoprolol succinate 25 mg 12.5 mg PO QAM 08/02/25 08/16/25 History tablet,extended release 24 hr Allergies Allergy/AdvReac Type Severity Reaction Status Date / Time No Known Allergies Allergy Verified 08/16/25 10:24 Vital Signs Vital Signs - 24 hr 08/16/25 10:00 Temperature 97.2 F L Pulse Rate 80 Respiratory Rate 16 Blood Pressure 165/79 H Pulse Oximetry 98 Oxygen Delivery Room Air Exam Narrative: General: cooperative, no acute distress, well developed, alert and awake Orientation/Consciousness: oriented to person, oriented to place and oriented to time Constitutional Limitations: no limitations Other: The patient is a normally developed, normal appearing male sitting on the examination table in no acute distress. He is awake, alert, and oriented x3 with good fund of knowledge, recall of events, and fluent speech. [facility] Head: normocephalic and atraumatic Ears: external ears normal Face/Nose/Sinus: Normal external nose present Eyes Eyelids: eyelids normal Pupils: Yes Pupils normal by confrontation EOM: EOMs intact bilaterally Neck General: Yes no meningeal signs, Yes supple and Yes no JVD Resp Effort/Inspection: normal respiratory effort and able to speak in complete sentences Cardio Rate: Yes regular rate GI Inspection: No abdominal distension Musc Other: Examination of the back reveals no tenderness. Range of motion of the back is limitedl with pain in forward extension. Straight leg raise is negative bilaterally. Shabbir?s test is negative bilaterally. Skin General: normal color Neuro General: Yes oriented to person, Yes oriented to place, Yes oriented to time, Yes normal cognition and Yes no meningeal signs Cranial Nerves: Yes CN's II-XII intact bilaterally Other: Motor: Strength is normal, 5/5, throughout all muscle groups of the bilateral lower extremities to direct confrontation. Sensory: Sensation is intact to light touch throughout the lower extremities bilaterally. Reflexes: Deep tendon reflexes are difficult to elicit the knees or ankles bilaterally. There is no clonus. Gait: Gait, station, and transfers are independent and steady for short periods of time and over short distances. He leans forward as he walks. Psych Appearance: grossly normal Mental status: Yes mental status grossly normal Mood: congruent mood Affect: Yes normal affect Speech/Movement: Normal speech and movement present Attitude: Yes cooperative Thought Content: Normal thought content present Assessment and Plan Assessment and plan (1) Spondylolisthesis at L5-S1 level: Code(s): M43.17 - Spondylolisthesis, lumbosacral region Status: Acute (2) Lumbar foraminal stenosis: Code(s): M48.061 - Spinal stenosis, lumbar region without neurogenic claudication Status: Acute (3) Lumbar spondylosis: Code(s): M47.816 - Spondylosis without myelopathy or radiculopathy, lumbar region Status: Acute Plan I continue to recommend an L4-5 and L5-S1 posterior lumbar interbody fusion and described to him that operation, its risks, potential benefits, the operative and postoperative course in detail and answered all his questions personally. We discussed risks including but not limited to permanent neurologic deficit secondary to nerve root injury, need for reoperation secondary to infection, bleeding, CSF leak, adjacent level disease, recurrent or residual pathology or instability, malposition or migration of the hardware or nonunion, failure of the procedure to relieve her pain or symptoms, persistent pain, medical complications related to anesthesia or surgery, etc.. He indicates understanding and elects to proceed with the operation.
--- NOTE | 2025-08-16 11:18 | WPDHPUPDATE1 ---
History and Physical Update Update Date/Time: 08/16/25 11:18 History and Physical has been reviewed, including an updated exam of the patient. There are NO changes in the patient's condition. Risks, benefits, and alternatives have been discussed and questions answered. Patient agrees to proceed with procedure.
--- NOTE | 2025-08-16 11:33 | WPDANESEPPF ---
Anes - Initial Pre Proc Eval Procedure: Operation Date: 08/16/25 10:30 Proposed Procedures p L4-5, L5-S1, Posterior Lumbar Interbody Fusion - Homer Desai MD Date/Time: 08/16/25 11:33 Surgeon: Homer Desai MD Pre Op Diagnosis: lumbar spondylolisthesis, lumbar foraminal stenosi Patient Data Age: 75 Gender: M Height: 1.7 m Weight: 71.4 kg Last Vital Signs Temp 97.2 F L 08/16/25 10:00 Pulse 80 08/16/25 10:00 Resp 16 08/16/25 10:00 BP 165/79 H 08/16/25 10:00 Pulse Ox 98 08/16/25 10:00 O2 Del Method Room Air 08/16/25 10:00 Allergies Allergy/AdvReac Type Severity Reaction Status Date / Time No Known Allergies Allergy Verified 08/16/25 10:24 Home Medications ?Medication ?Instructions ?Recorded ?Confirmed ?Type latanoprost 0.005 % eye drops 1 drp EACH EYE HS 05/17/24 08/11/25 History (Xalatan) vitamins A,C,B-dkfw-uwdktn 4,296 1 cap PO QAM 08/16/24 08/11/25 History mcg-226 mg-90 mg capsule (PreserVision AREDS) finasteride 5 mg tablet 5 mg PO DAILY #90 tabs 12/05/24 08/11/25 Rx clopidogrel 75 mg tablet (Plavix) 75 mg PO DAILY 02/25/25 08/16/25 History rosuvastatin 20 mg tablet 20 mg PO DAILY 02/25/25 08/11/25 History aspirin 81 mg tablet,delayed 81 mg PO ONCE 03/17/25 08/16/25 History release famotidine 20 mg tablet 20 mg PO BID 05/17/25 08/16/25 History triamcinolone acetonide 0.1 % 1 applic topical BID PRN skin 05/17/25 08/11/25 History topical cream irritation acetaminophen 300 mg-codeine 30 mg 1 tablet PO QID PRN pain #60 tabs 07/29/25 08/11/25 Rx tablet acetaminophen 500 mg tablet 500 mg PO Q6H PRN pain 08/02/25 08/11/25 History (Acetaminophen Pain Relief) carboxymethyl 0.5 %-glycerin 1 1 drp EACH EYE TID PRN dry eye(s) 08/02/25 08/11/25 History %-polysorb 80 0.5 %-PF eye dropperette (Refresh Optive Advanced (PF)) clonazepam 0.5 mg disintegrating 0.5 mg PO BID PRN anxiety 08/02/25 08/11/25 History tablet furosemide 20 mg tablet 20 mg PO DAILY PRN edema 08/02/25 08/11/25 History metoprolol succinate 25 mg 12.5 mg PO QAM 08/02/25 08/16/25 History tablet,extended release 24 hr Laboratory Tests 08/16/25 09:48 Blood Type A Positive Antibody Screen Negative Patient hx anesthesia problems: none Family hx anesthesia problems: none Results Review: All pre-operative results and documents have been reviewed as part of the pre-operative evaluation. [facility] Past Medical History Medical History BMI 24.0-24.9, adult Surgical History Surgical History History of coronary artery bypass graft (01/2025) X4 History of orchiectomy, unilateral (04/2024) Right for persistent orchalgia History of epididymectomy (08/2023) right Family History Family History Father Hypertension Mother Osteoporosis Sibling Breast cancer Other Family history of glaucoma Family history of osteoporosis Social History Social History Years smoked: 20 Smoking status: Former smoker Tobacco type: cigarettes Second hand tobacco smoke exposure: No Smoking end date: 08/14/86 Alcohol intake: current Substance use: never Substance use type: does not use Do You Feel Safe in your Home?: Yes Lack of Transportation: No Lack of Food: Never True Current Housing: I Have Housing Concerned About Future Housing: No Difficulty Paying Gas/Electric Bills: No Difficulty Paying for Meds: No Currently Unemployed: No Education: Master's Degree or Higher Difficulty w/ Childcare or Family Care: No Living arrangements: with family Additional living arrangements comments: Occupation/Education: retired Additional occupation/education comments: [employer] Spiritual care concerns: No Anes - Eval Final PreProcedure Day of Procedure 08/16/25 11:33 Patient weight: normal Heart: regular rate and rhythm Lungs: clear to auscultation Airway: Mallampati scale class III Neurological: alert and oriented Last oral intake: >/= 8 hours ASA classification: III Emergent: no Anesthetic plan: proceed Anesthesia type and monitoring: general ETT and standard monitoring Results Review: All pre-operative results and documents have been reviewed as part of the pre-operative evaluation. Informed Consent: The patient's anesthetic plan and its attendant risks and benefits were discussed with the patient/family/POA. Questions were solicited and answers provided to the satisfaction of the patient/family/POA.
[2025-08-16] MEDS: ceFAZolin 2 GM in SODIUM CHLORIDE 0.9% IV 50 ML 100 ML IVPB (11:42)
[2025-08-16] MEDS: LIDO 1%/EPINEPHRINE 1:100,000 20 ML VIAL 10 ML INFILTRATE (12:32)
[2025-08-16] MEDS: LACTATED RINGERS 1,000 ML 125 ML IV CONT (15:05)
[2025-08-16] MEDS: fentaNYL CITRATE INJ (*CRX) 100 MCG/2 ML VIAL 25 MCG IV PUSH (15:40)
--- NOTE | 2025-08-16 17:05 | PC.NURSE ---
RN received patient from surgery at 1700.
[2025-08-16] MEDS: KCL 20 MEQ/D5/0.45% SOD CHL 1,000 ML 100 ML IV CONT (17:40)
[2025-08-16] MEDS: HYDROmorphone HCL INJ (*CRX) 1 MG/ML SYR 0.5 MG IV PUSH (17:41)
--- NOTE | 2025-08-16 20:30 | PC.NURSE ---
This Nurse found this pts hemovac tubing on the ground in their room. The Pt stated he was getting tangled and figured we would have to replace it anyway. This Nurse contacted the Dr. Desai and he said it was okay and replacing it wont be necessary. the drain incision site was cleaned and dressed with ABD and medipore tape.
[2025-08-16] MEDS: HYDROcodone/acetaminophen (*CRX) 5-325 MG TABLET 1 TAB PO (21:02)
[2025-08-16] MEDS: ceFAZolin 1 GM in SODIUM CHLORIDE 0.9% IV 50 ML 100 ML IVPB (21:02)
[2025-08-16] MEDS: DOCUSATE SODIUM 100 MG CAPSULE PO (21:04)
[2025-08-16] MEDS: LATANOPROST 0.005% OP SOLN 2.5 ML BTL 1 DROP EACH EYE (21:04)
[2025-08-16] MEDS: FAMOTIDINE 20 MG TABLET PO (21:04)
[2025-08-16] MEDS: clonazePAM (*CRX) 0.5 MG TABLET PO (21:04)
--- NOTE | 2025-08-16 22:05 | W.PM.PROC2 ---
Procedure Note - Detailed Date of Procedure 08/16/25 Pre-op Diagnosis lumbar spondylolisthesis, lumbar foraminal stenosi Post-op Diagnosis Same Procedure Performed L4-5 and L5-S1 complete laminectomy and bilateral facetectomy, L4-5 and L5-S1 complete diskectomy and interbody arthrodesis utilizing titanium interbody devices and local autograft, L4-5 and L5-S1 pedicle screw instrumention Surgeon Homer Desai MD Anesthesia General Description of Procedure The patient was brought to the operating room in the supine position, was sedated, intubated and placed under general anesthesia in routine fashion. He was then turned into the prone position on a open Ruiz table. The operation his back was examined, marked for incision, prepped and draped in routine sterile fashion. Incision was marked over the L4 through S1 spinous processes in the midline. This area was injected with 0.5% lidocaine with a [id number] epinephrine. Intravenous antibiotics given prior to incision. Incision was made with a 10 blade scalpel down to the lumbodorsal fascia. A subperiosteal dissection of the muscle and soft tissue away from the spinous process and lamina at L4 through S1 was performed with a subperiosteal elevator and Bovie cautery. A verifying x-rays obtained to verify level of operation. The L4 and L5 spinous processes were removed with a Donnie rongeur. Kerrison punches, curved curettes and a Leksell rongeur were used to remove lamina in the midline until the soft contents of the canal were encountered. A Midas Fabrizio drill was used to resect the pars bilaterally at L4 and L5. The inferior articular process and facet of L4 and L5 could then be removed bilaterally. These plus spinous processes were stripped free of soft tissue and morselized for later use as interbody autograft. Kerrison punches and curved curettes were used to define a plane with the dura and removed bone and ligament flush with the pedicle and through the foramina widely decompressing the exiting nerve roots. With the thecal sac retracted and protected the disc space at each level was entered bilaterally using an 11 blade scalpel. Scrapers of various sizes, curettes of various configurations, pituitary rongeur and a rasp were used to remove as much cartilaginous endplate and disc material as possible down to bleeding cortical flat surfaces in the opposing bones at both levels. The disc spaces were incised and appropriately sized interbody devices were chosen and filled with local autograft bone. The disc spaces were likewise filled with local autograft bone medially and anteriorly. The interbody devices then placed 2-3 mm countersink within the disc space bilaterally at both L4-5 and L5-S1. pedicle screw instrumentation was performed at L4-L5 and S1 by observing and palpating the pedicle while hole was made in the superior articular process above the pedicle used a Midas Fabrizio drill. A pedicle was then cannulated with a pedicle probe, checked for continuity with the ball probe, tapped with a 5.5 mm tap and 6.5 x 50 mm screw was placed at each pedicle at L4 and L5 and a 45 mm screw at S1. Rods were placed in the screw heads on either side and secured in position using the capsular that purpose. The calves are definitively tightened with the torque and anti torque device. A verifying x-rays obtained to verify good position of the instrumentation which was confirmed. The wound was then copiously irrigated with bacitracin irrigation all bleeding stopped with bipolar and Bovie cautery and Gelfoam thrombin powder. The wound was then closed in layered fashion with 2-0 Vicryl interrupted sutures in the lumbodorsal fascia and Franko's layer. 3-0 Vicryl buried interrupted sutures were placed in the dermis and the skin was closed with a running 4-0 Monocryl subcuticular stitch and dressed with Dermabond. The patient was allowed to wake up in the operating room and was taken to the recovery room in stable condition. There were no immediate complications of this operation. All counts were reported correct at the end of the case. Blood loss was 300 cc. The patient was neurologically at his baseline postoperatively. CPT codes: 04814, 12611, 44731, 51697, 65742, 99586 x 2, 82655 x 2 Estimated Blood Loss 300 Drains Yes Complications No immediate complications Condition Stable Disposition PACU [facility] Billing Surgery - Charge Forward: Surgery Billing
[2025-08-17] VITALS (9 sets, daily range): BP systolic 99–140; BP diastolic 47–71; PULSE 74–96; RESP 14–18; TEMP 36.4–37.1; O2SAT 92–97
--- NOTE | 2025-08-17 03:10 | ECG_ITS ---
Test Date: 2025-08-17 03:22:19 Measurements Intervals [place] Rate: 69 P: 59 MO: 205 QRS: 9 QRSD: 90 T: 48 QT: 417 QTc: 449 Interpretive Statements SINUS RHYTHM INCOMPLETE RIGHT BUNDLE BRANCH BLOCK BORDERLINE ECG Compared to ECG 04/28/2025 14:59:33 Ventricular premature complex(es) no longer present Electronically Signed On 08-17-2025 05:59:19 CDT by Chuy Govea D.O.
[2025-08-17] MEDS: ceFAZolin 1 GM in SODIUM CHLORIDE 0.9% IV 50 ML 100 ML IVPB ×3 (03:36→21:27)
[2025-08-17] MEDS: HYDROcodone/acetaminophen (*CRX) 10-325 MG TABLET 1 TAB PO ×2 (03:36→21:32)
[2025-08-17] MEDS: SODIUM CHLORIDE 0.9% IV 1,000 ML 70 ML IV CONT ×2 (04:00→21:27)
[2025-08-17 04:11] LABS: Hematocrit 30.6 % (42.0-52.0); Hemoglobin 9.8 g/dL (14.0-18.0); Mean Corpuscular HGB Conc 32.0 g/dl (32-36); Mean Corpuscular Hemoglobin 29.8 pg (26-34); Mean Corpuscular Volume 93.0 fl (80-100); Platelet Count Result 233 k/mm3 (150-375); Red Blood Count 3.29 M/mm3 (4.6-6.20); White Blood Count 15.6 K/mm3 (4.5-10.0)
[2025-08-17 04:25] LABS: Anion Gap 9 mmol/L (4-12); Blood Urea Nitrogen 19 mg/dL (9-20); Calcium 8.2 mg/dL (8.4-10.2); Carbon Dioxide 23 mmol/L (22-30); Chloride 101 mmol/L (98-107); Estimated CRCL calculation 67 ml/min; Estimated Glomerular Filt Rate > 60; Glucose 135 mg/dL (65-110); Potassium 4.1 mmol/L (3.4-5.0); Sodium 133 mmol/L (137-145)
[2025-08-17] MEDS: OPTI-GEN TAB 1 TABLET PO (09:16)
[2025-08-17] MEDS: FAMOTIDINE 20 MG TABLET PO ×2 (09:16→21:28)
[2025-08-17] MEDS: FINASTERIDE 5 MG TABLET PO (09:16)
[2025-08-17] MEDS: DOCUSATE SODIUM 100 MG CAPSULE PO ×2 (09:16→21:28)
[2025-08-17] MEDS: CYCLOBENZAPRINE HCL 10 MG TABLET PO ×2 (09:21→21:30)
[2025-08-17] MEDS: clonazePAM (*CRX) 0.5 MG TABLET PO ×2 (09:21→21:28)
--- NOTE | 2025-08-17 11:51 | WPDNEUROSGPN ---
Progress Note: A&P Assessment and Plan (1) Status post spinal arthrodesis: Code(s): Z98.1 - Arthrodesis status Status: Acute Assessment and Plan: - obtain orthostatic BP x1 - maintain IV fluid until this evening - encourage p.o. fluids - if patient remains hypotensive, will consult hospitalist Subjective Date/time seen: 08/17/25 1015 Interval history: Nino is pod 1 S/P PLIF L4-S1 with Dr. Desai. Had vasovagal episode last night and soft BPs today. Started on NS 70 mL/hr. EKG looks okay, partial RBBB. Labs with mild hyponatremia, patient baseline. Otherwise labs unremarkable. BP meds held this AM. Patient self DC drain last night, on IV abx. Patient is feeling better this morning. Sitting up in chair with at bedside. States that he got up and walked around the room without dizziness. Pain is well controlled currently with Flexeril and Klonopin. Exam Narrative: A&O x4. Calm, cooperative, no acute distress Incision C/D/ I. Drain self DC'd last night. Motor strength and sensation at baseline Objective Data Vital Signs Vital Signs: Vital Signs - 24 hr 08/16/25 15:05 08/16/25 15:20 08/16/25 15:35 Temperature 97.5 F L Pulse Rate 65 70 69 Respiratory Rate 10 L 14 17 Blood Pressure 109/55 L 120/69 117/65 Pulse Oximetry 99 99 97 Oxygen Delivery Simple Face Mask Simple Face Mask Room Air Oxygen Flow Rate 6 6 08/16/25 15:50 08/16/25 16:05 08/16/25 16:20 Temperature Pulse Rate 65 71 61 Respiratory Rate 14 20 18 Blood Pressure 113/60 120/65 116/65 Pulse Oximetry 97 95 95 Oxygen Delivery Room Air Room Air Room Air Oxygen Flow Rate 08/16/25 16:35 08/16/25 17:00 08/16/25 17:00 Temperature 98.5 F 97.5 F L Pulse Rate 68 67 69 Respiratory Rate 15 16 16 Blood Pressure 118/63 122/55 L 125/55 L Pulse Oximetry 96 97 94 Oxygen Delivery Room Air Oxygen Flow Rate 08/16/25 17:15 08/16/25 17:25 08/16/25 18:41 Temperature 97.6 F 97.6 F Pulse Rate 70 73 Respiratory Rate 16 18 Blood Pressure 134/60 114/82 105/69 Pulse Oximetry 96 96 Oxygen Delivery Oxygen Flow Rate 08/16/25 19:42 08/16/25 20:00 08/16/25 23:42 Temperature 97.7 F 97.7 F Pulse Rate 78 78 66 Respiratory Rate 18 18 18 Blood Pressure 120/66 122/68 Pulse Oximetry 95 95 96 Oxygen Delivery Room Air Oxygen Flow Rate 08/17/25 03:42 08/17/25 03:49 08/17/25 07:42 Temperature 98.7 F 97.7 F 97.5 F L Pulse Rate 85 74 90 Respiratory Rate 14 18 18 Blood Pressure 126/67 99/57 L 120/70 Pulse Oximetry 96 97 94 Oxygen Delivery Room Air Oxygen Flow Rate 08/17/25 07:51 08/17/25 08:00 08/17/25 09:11 Temperature Pulse Rate 84 Respiratory Rate Blood Pressure Pulse Oximetry Oxygen Delivery Room Air Room Air Oxygen Flow Rate 08/17/25 10:30 Temperature Pulse Rate Respiratory Rate Blood Pressure Pulse Oximetry Oxygen Delivery Room Air Oxygen Flow Rate Intake/Output Intake/Output: Intake & Output 08/14/25 08/15/25 08/16/25 08/17/25 23:59 23:59 23:59 23:59 Intake Total 540 526 Output Total 630 Balance -90 526 Meds/Results Medications: Active Medications Generic Name Dose Route Start Last Admin Trade Name Freq PRN Reason Stop Dose Admin Hydrocodone Bitart/Acetaminophen 1 tab 08/16/25 16:42 08/16/25 21:02 Hydrocodone/Acetaminophen (*Crx) 5-325 Mg Tablet PO 1 tab Q4H PRN Administration Mild Pain (1-3) Hydrocodone Bitart/Acetaminophen 1 tab 08/16/25 16:42 08/17/25 03:36 Hydrocodone/Acetaminophen (*Crx) 10-325 Mg Tablet PO 1 tab Q4H PRN Administration Moderate Pain (4-6) Al Hydrox/Mg Hydrox/Simethicone 20 ml 08/16/25 16:42 Mag Hydrox/Al Hydrox/Simeth 30 Ml Udc PO Q4H PRN Indigestion/Heartburn Artificial Tears 1 drop 08/16/25 16:53 Artificial Tears Ophth Soln 15 Ml Bottle EACH EYE TID PRN Dry Eye(s) Bisacodyl 10 mg 08/16/25 16:42 Bisacodyl 10 Mg Suppository RECTAL DAILY PRN Constipation Clonazepam 0.5 mg 08/16/25 17:00 08/17/25 09:21 Clonazepam (*Crx) 0.5 Mg Tablet PO 0.5 mg BID PRN Administration anxiety Cyclobenzaprine HCl 10 mg 08/16/25 16:42 08/17/25 09:21 Cyclobenzaprine Hcl 10 Mg Tablet PO 10 mg TID PRN Administration Muscle Spasms Docusate Sodium 100 mg 08/16/25 21:00 08/17/25 09:16 Docusate Sodium 100 Mg Capsule PO 100 mg Q12HR LARRY Administration Famotidine 20 mg 08/16/25 21:00 08/17/25 09:16 Famotidine 20 Mg Tablet PO 20 mg Q12HR LARRY Administration Finasteride 5 mg 08/17/25 09:00 08/17/25 09:16 Finasteride 5 Mg Tablet PO 5 mg DAILY LARRY Administration Furosemide 20 mg 08/16/25 16:42 Furosemide 20 Mg Tablet PO DAILY PRN Edema Hydromorphone HCl 0.5 mg 08/16/25 16:42 08/16/25 17:41 Hydromorphone Hcl Inj (*Crx) 1 Mg/Ml Syr IV PUSH 0.5 mg Q2H PRN Administration Pain Rated 7-10 Cefazolin Sodium 1 gm/ Sodium 50 mls @ 100 mls/hr 08/16/25 20:00 08/17/25 11:44 Chloride IVPB 100 mls/hr Q8H LARRY Administration Potassium Chloride/Dextrose/Sod Cl 1,000 mls @ 100 mls/hr 08/16/25 16:42 08/16/25 17:40 Kcl 20 Meq/D5/0.45% Sod Chl IV CONT 100 mls/hr .Q10H LARRY Administration Sodium Chloride 1,000 mls @ 70 mls/hr 08/17/25 03:50 08/17/25 04:00 Normal Saline Iv IV CONT 70 mls/hr .[id number] LARRY Administration Latanoprost 1 drop 08/16/25 21:00 08/16/25 21:04 Latanoprost 0.005% Op Soln 2.5 Ml Btl EACH EYE 1 drop HS LARRY Administration Metoprolol Succinate 12.5 mg 08/17/25 09:00 08/17/25 09:11 Metoprolol Succinate Ext Rel 12.5 Mg Tabcr PO Not Given QAM LARRY Multivitamins/Minerals 1 tablet 08/17/25 09:00 08/17/25 09:16 Opti-Gen Tab PO 1 tablet QAM LARRY Administration Ondansetron HCl 4 mg 08/16/25 16:42 Ondansetron Inj 4 Mg/2 Ml Vial IV PUSH Q8H PRN Nausea And Vomiting Rosuvastatin Calcium 20 mg 08/17/25 18:00 Rosuvastatin 20 Mg Tablet PO EVENING LARRY Senna/Docusate Sodium 1 tab 08/16/25 16:42 Senna/Docusate Sodium Tablet PO HS PRN Constipation Triamcinolone Acetonide 1 applic 08/16/25 16:42 Triamcinolone Acet 0.1% Cream 15 Gm Tube TOPICAL Q12HR PRN Skin Irritation Radiology Results: ITS Impressions Fluoroscopy 08/16/25 15:04 IMPRESSION: 1. Fluoroscopy utilized during instrumented L4-S1 anterior and posterior spinal fusion procedure. See procedure note for further detail. Labs Labs: Laboratory Results - last 24 hr 08/17/25 08/17/25 03:39 04:06 WBC 15.6 H RBC 3.29 L Hgb 9.8 L Hct 30.6 L MCV 93.0 MCH 29.8 MCHC 32.0 RDW 14.5 Plt Count 233 MPV 8.5 Sodium 133 L Potassium 4.1 Chloride 101 Carbon Dioxide 23 Anion Gap 9 BUN 19 Creatinine 0.77 Estim Creat Clear Calc 67 Estimated GFR > 60 Glucose 135 H POC Capillary Glucose 141 H Calcium 8.2 L
[2025-08-17] MEDS: HYDROcodone/acetaminophen (*CRX) 5-325 MG TABLET 1 TAB PO (15:32)
[2025-08-17] MEDS: ROSUVASTATIN 20 MG TABLET PO (17:12)
[2025-08-17] MEDS: LATANOPROST 0.005% OP SOLN 2.5 ML BTL 1 DROP EACH EYE (21:35)
[2025-08-18] MEDS: ceFAZolin 1 GM in SODIUM CHLORIDE 0.9% IV 50 ML 100 ML IVPB ×2 (05:07→11:28)
[2025-08-18] MEDS: HYDROcodone/acetaminophen (*CRX) 10-325 MG TABLET 1 TAB PO (05:08)
[2025-08-18 06:00] VITALS: BP 143/70; PULSE 104; RESP 14; TEMP 37.1; O2SAT 98
[2025-08-18] MEDS: OPTI-GEN TAB 1 TABLET PO (08:49)
[2025-08-18] MEDS: HYDROcodone/acetaminophen (*CRX) 5-325 MG TABLET 1 TAB PO (08:49)
[2025-08-18] MEDS: clonazePAM (*CRX) 0.5 MG TABLET PO (08:49)
[2025-08-18 08:50] VITALS: PULSE 103
[2025-08-18] MEDS: FAMOTIDINE 20 MG TABLET PO (08:50)
[2025-08-18] MEDS: DOCUSATE SODIUM 100 MG CAPSULE PO (08:50)
[2025-08-18] MEDS: METOPROLOL SUCCINATE EXT REL 12.5 MG TABCR PO (08:50)
[2025-08-18] MEDS: FINASTERIDE 5 MG TABLET PO (08:53)
--- NOTE | 2025-08-18 13:41 | P.DS_ITS ---
DS: Admitting Diagnosis Discharge Date August 18, 2025 Admitting Diagnosis Lumbar spondylolisthesis, Lumbar stenosis without neurogenic claudication DS: Summary Hospital Course Hospital Course: Mr. Gomez is a 75-year-old male who presented for surgery in the form of L4-5 and L5-S1 PLIF on August [address] Desai. Please see the operative note for more details. He was transferrd to the floor after surgery. His Hemovac drain was removed on postoperative day 1. He worked with Physical therapy who cleared him for discharge home. He was tolerating oral intake and voiding independently. He was determined ready for discharge home on postoperative day 2. Time Spent with Patient Time attestation: Total time spent providing and/or coordinating discharge services: Discharge Plan Discharge Discharging Clinician: Maci Farr Patient Disposition: Home Activity: other - see discharge instructions Diet: as tolerated Patient Instructions: Antibiotic Form Patient Language: Macedonian Stand Alone Forms: General Discharge Information Follow-up/Referrals: Homer Desai MD [Physician, Neurosurgery] Discharge Medications: New hydrocodone-acetaminophen 5-325 mg Tablet 1 tablet PO Q4H PRN (Reason: Mild Pain (1-3)) 7 Days Qty: 42 0RF sennosides-docusate sodium [Senokot-S] 8.6-50 mg Tablet 1 tab-cap PO BID 7 Days Qty: 14 0RF cyclobenzaprine 10 mg Tablet 10 mg PO TID PRN (Reason: Muscle Spasms) Qty: 30 0RF Continued famotidine 20 mg tablet 20 mg PO BID PreserVision AREDS 4,296 mcg-226 mg-90 mg capsule 1 cap PO QAM triamcinolone acetonide 0.1 % cream 1 applic topical BID PRN (Reason: skin irritation) rosuvastatin 20 mg tablet 20 mg PO DAILY Patient Comments: EVENING latanoprost [Xalatan] 0.005 % drops 1 drp EACH EYE HS metoprolol succinate 25 mg tablet extended release 24 hr 12.5 mg PO QAM acetaminophen [Acetaminophen Pain Relief] 500 mg tablet 500 mg PO Q6H PRN (Reason: pain) Refresh Optive Advanced (PF) 0.5-1-0.5 % dropperette 1 drp EACH EYE TID PRN (Reason: dry eye(s)) clonazepam 0.5 mg tablet,disintegrating 0.5 mg PO BID PRN (Reason: anxiety) furosemide 20 mg tablet 20 mg PO DAILY PRN (Reason: edema) finasteride 5 mg tablet 5 mg PO DAILY Qty: 90 3RF Patient Comments: EVENING Held aspirin 81 mg tablet,delayed release (DR/EC) 81 mg PO ONCE Hold Instructions: Resume on 08/23/25. Patient Comments: EVENING clopidogrel [Plavix] 75 mg tablet 75 mg PO DAILY Hold Instructions: Resume on 08/23/25. Discontinued acetaminophen-codeine 300-30 mg tablet 1 tablet PO QID PRN (Reason: pain) Qty: 60 1RF Patient Comments: TAKES AT HS Date of admission: 08/16/25 16:42 Primary Care Provider: Shabbir White Admitting Provider: Mauricio Burr Attending physician on admission: Homer Desai Condition: Stable
== END 2025-08-18 13:20 | disposition home or self-care (01) | DRG 448 ==
LOC: ANH3MEDSUR 16:43
PROVIDERS: Neurological Surgery; Admitting Provider Neurological Surgery; PCP Family Medicine Adolescent Medicine; Visit Provider Neurological Surgery
PROC: 0SG00AJ Fusion of Lumbar Vertebral Joint with Interbody Fusion Device, Posterior Approach, Anterior Column, Open Approach (ICD-10-PCS; CPT 22612; principal; 2025-08-16 10:30)
DX: M48.061 Spinal stenosis, lumbar region without neurogenic claudication (principal); M43.17 Spondylolisthesis, lumbosacral region; M47.816 Spondylosis without myelopathy or radiculopathy, lumbar region; Z87.891 Personal history of nicotine dependence; Z95.1 Presence of aortocoronary bypass graft; R55 Syncope and collapse
CPT/HCPCS: 36415; 80048; 82948; 85027; 86850; 86900; 86901; 93005; 97116; 97161; 97166; 97530; 97535; 99199; J0690; A9270; C1713; J1100; J1171; J2003; J2004; J2405; J2704; J3010; J3480; J7030; J7120

== ENCOUNTER 2025-09-03 12:04 | Emergency (ER) | payer MEDICARE, BC, SELFPAY ==
--- NOTE | ~2025-09-03 | XR_ITS ---
Lumbar spine series Indication: Evaluate hardware, felt pop Comparison: MRI lumbar spine 06/08/2025 Technique: 4 views lumbar spine Findings: Laminectomy with pedicle screw and juliet fixation L4-S1. Mild lucency surrounding L4 screws. 5 nonrib-bearing lumbar-type vertebral bodies. No acute fracture. Grade 1 anterolisthesis L5 on S1 as before. Moderate degenerative changes. SI joints congruent. Sacrum intact. IMPRESSION: 1. L4-S1 hardware intact. However mild lucency around L4 screws could indicate loosening or even infection. 2. No acute abnormality. Reviewed, dictated and finalized at location R. AGENT
[2025-09-03 12:07] VITALS: BP 154/87; PULSE 88; RESP 20; TEMP 36.4; O2SAT 98
--- OUTSIDE RECORDS SUMMARY | 2025-09-03 12:09 | XMS_ITS | Encounter Summary ---
Author Organization [facility] Address [address] [place] [address] Care Team Providers Care Letter Stamping Machine Operator Name Role Phone Shabbir White MD Primary Care Provider + Encounter Details Date Type Department Care Team (Late st Contact Info) Description 07/05/2025 Lab Requisition [facility] - DermPath Lab [address] [place] [address] Angela Young MD [address] [place] [address] Neoplasm of unspecified behavior of bone, soft tissue, and skin Social History Tobacco Use Types Packs/Day Years Used Date Smoking Tobacco: Never Assessed Sex and Gender Information Value Date Recorded Sex Assigned at Not on file 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 Zac Szymanski. These tests need not be, and therefore are not, approved by the [place] Food and Drug Administration. The tests are used for clinical purposes. Billing Codes Specimen Charges Stain Charges 86610 1 3:29 PM CDT DERMATOPATHOLOGY LABORATORY Embedded Images 3:29 PM CDT DERMATOPATHOLOGY LABORATORY Pathology/Cytolo gy TISSUE SPECIMEN FROM SKIN / Unknown 07/04/2025 12:00 PM CDT 07/06/2025 9:29 AM CDT us Angela Young MD LAB - PATHOLOGY/CYTOLOGY ORDERA BLES Final Result DERMATOPATHOLOGY LABORATORY [facility] - Department of Dermatology [address], [address] [phone] documented in this encounter Visit Diagnoses Diagnosis Neoplasm of unspecified behavior of bone, soft tissue, and skin documented in this encounter Care Teams Letter Stamping Machine Operator Relationship Specialty Start Date End Date Shabbir White MD [address] [address] PCP - General 11/24/18 documented as of this encounter
--- OUTSIDE RECORDS SUMMARY | 2025-09-03 12:10 | XMS_ITS | Clinical Summary ---
Author Organization [facility] Address [address] [place] [address] Care Team Providers Care House Mover Helper Name Role Phone Shabbir White MD Primary Care Provider + Source Comments [facility],non-owned Affiliates and Associated Physician Practices is amultiple site organization consisting of ambulatory clinics and hospital sitesin [place], [place], [place] and [place]. This disclosure is being madepursuant to the Care Everywhere program and may not contain all information available regarding this patient. 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 Zac Syzmanski. These tests need not be, and therefore are not, approved by the [place] Food and Drug Administration. The tests are used for clinical purposes. Billing Codes Specimen Charges Stain Charges 08700 1 5 3:29 PM CDT DERMATOPATHOLOGY LABORATORY Embedded Images 5 3:29 PM CDT DERMATOPATHOLOGY LABORATORY Pathology/Cytolo gy TISSUE SPECIMEN FROM SKIN / Unknown 07/04/2025 12:00 PM CDT 07/06/2025 9:29 AM CDT Angela Young MD LAB - PATHOLOGY/CYTOLOGY ORDERA BLES Final Result DERMATOPATHOLOGY LABORATORY [facility] - Department of Dermatology [facility] [address] [place] [address], [address] [phone] from Last 3 Months Insurance ON LICENSE OF [facility] * Guarantor: OSEAS GOMEZ Account Type Relation to Patient Date of Phone Billing Address Personal/Family [address] [facility] [place] [address] SELF PAY NO INSURANCE Member Subscriber Plan / Payer (Ef fective for All Dates) Name:Oseas Gomez Member ID:Not on file Relation to Subscriber:Not on file Name:OSEAS GOMEZ Subscriber ID:Not on file Address: [address] [facility] [place] [address] Payer ID:Not on file Group ID:Not on file Type:Self Pay Address: [place], [place] ANTH SELF PAY NO INSURANCE Member Subscriber Plan / Payer (Ef fective for All Dates) Name:Oseas Gomez Member ID:Not on file Relation to Subscriber:Not on file Name:OSEAS GOMEZ Subscriber ID:Not on file Address: [address] [place] [id number] Payer ID:Not on file Group ID:Not on file Type:Self Pay Address: [facility] * Guarantor: OSEAS GOMEZ Account Type Relation to Patient Date of Phone Billing Address Personal/Family [address] [place] [phone] SELF PAY NO INSURANCE Member Subscriber Plan / Payer (Ef fective for All Dates) Name:Oseas Gomez Member ID:Not on file Relation to Subscriber:Not on file Name:OSEAS GOMEZ Subscriber ID:Not on file Address: [address] [place] [phone] Payer ID:Not on file Group ID:Not on file Type:Self Pay Address: [facility] * Guarantor: OSEAS GOMEZ Account Type Relation to Patient Date of Phone Billing Address Personal/Family Spouse Care Teams House Mover Helper Relationship Specialty Start Date End Date Shabbir White MD [address] [address] PCP - General 11/24/18
[2025-09-03 12:42] VITALS: BP 134/77; PULSE 83; RESP 16; O2SAT 97
--- NOTE | 2025-09-03 12:54 | ED.BACK ---
HPI - Back Pain/Injury General Chief Complaint: Back Pain/Injury Stated Complaint: Back pain/recent back surgery Time Seen by Provider: 09/03/25 12:46 Source: patient Mode of arrival: ambulatory Limitations: no limitations History of Present Illness HPI Narrative: This is a 75-year-old male with history of CAD, GERD, hyperlipidemia, spondylosis and spondylolisthesis status post spinal fusion 2 weeks ago presents to the ED for possible displacement of hardware. Patient states that he was going up some steps yesterday felt a pop in his low back where the surgery was performed. He has had intermittent pain since then that just feels ?a little bit different? than before. Denies numbness, tingling, saddle anesthesia, bowel/bladder incontinence. He is able to ambulate. He was concerned about the hardware being displaced prompting him to come to the ED. Related Data Home Medications ?Medication ?Instructions ?Recorded ?Confirmed ?Last Taken ?Type latanoprost 0.005 % eye drops 1 drp EACH EYE HS 05/17/24 08/29/25 Unknown History (Xalatan) vitamins A,C,R-epxj-vcaoiz 4,296 1 cap PO QAM 08/16/24 08/29/25 Unknown History mcg-226 mg-90 mg capsule (PreserVision AREDS) clopidogrel 75 mg tablet (Plavix) 75 mg PO DAILY 02/25/25 08/29/25 08/09/25 History Held on 08/18/25. Instructions: Resume on 08/23/25. rosuvastatin 20 mg tablet 20 mg PO DAILY 02/25/25 08/29/25 Unknown History aspirin 81 mg tablet,delayed 81 mg PO ONCE 03/17/25 08/29/25 08/09/25 History release Held on 08/18/25. Instructions: Resume on 08/23/25. famotidine 20 mg tablet 20 mg PO BID 05/17/25 08/29/25 08/16/25 History triamcinolone acetonide 0.1 % 1 applic topical BID PRN skin 05/17/25 08/29/25 Unknown History topical cream irritation acetaminophen 500 mg tablet 500 mg PO Q6H PRN pain 08/02/25 08/29/25 Unknown History (Acetaminophen Pain Relief) carboxymethyl 0.5 %-glycerin 1 1 drp EACH EYE TID PRN dry eye(s) 08/02/25 08/29/25 Unknown History %-polysorb 80 0.5 %-PF eye dropperette (Refresh Optive Advanced (PF)) clonazepam 0.5 mg disintegrating 0.5 mg PO BID PRN anxiety 08/02/25 08/29/25 Unknown History tablet furosemide 20 mg tablet 20 mg PO DAILY PRN edema 08/02/25 08/29/25 Unknown History metoprolol succinate 25 mg 12.5 mg PO QAM 08/02/25 08/29/25 08/16/25 History tablet,extended release 24 hr acetaminophen 300 mg-codeine 30 mg tablet PO 08/29/25 08/29/25 Unknown History tablet sennosides 8.6 mg tablet (senna) 8.6 mg PO BID 08/29/25 08/29/25 Unknown History Allergies Allergy/AdvReac Type Severity Reaction Status Date / Time No Known Allergies Allergy Verified 09/03/25 12:45 Review of Systems Review of Systems: Gen.: Denies fevers or chills Eyes: Denies eye pain or visual change ENT: Denies congestion Respiratory: Denies shortness of breath or cough CV: Denies chest pain or palpitations GI: Denies abdominal pain nausea, emesis or diarrhea denies burning, urgency, frequency or hematuria Musculoskeletal: As per HPI Neuro: Denies numbness, tingling, weakness or focal weakness Skin: Denies rash Except as documented, all other systems reviewed and negative PMFSH Past Medical History Medical History BMI 24.0-24.9, adult Surgical History Surgical History History of lumbar fusion (07/2025) L4-5 & L5-S1 laminectomy & fusion (titanium) History of coronary artery bypass graft (01/2025) X4 History of orchiectomy, unilateral (04/2024) Right for persistent orchalgia History of epididymectomy (08/2023) right Family History Family History Father Hypertension Mother Osteoporosis Sibling Breast cancer Other Family history of glaucoma Family history of osteoporosis Social History Social History Years smoked: 20 Smoking status: Former smoker Second hand tobacco smoke exposure: No Alcohol intake: current Drinks per week: 7 Substance use: never Substance use type: does not use Do You Feel Safe in your Home?: Yes Lack of Transportation: No Lack of Food: Never True Current Housing: I Have Housing Concerned About Future Housing: No Difficulty Paying Gas/Electric Bills: No Difficulty Paying for Meds: No Currently Unemployed: No Education: Master's Degree or Higher Difficulty w/ Childcare or Family Care: No Living arrangements: with family Additional living arrangements comments: 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 CARDIOVASCULAR: Regular rate and rhythm without murmurs rubs or gallops. ABDOMINAL: Soft, nontender, nondistended, no rebound or guarding MUSCULOSKELETAl: Ambulatory. Moves all extremities. No clubbing, cyanosis or edema. NEURO: Awake and alert. Following commands, speech normal, no focal deficits SKIN:: Warm, dry. Midline lumbar incision clean/dry/intact PSYCHIATRIC: Normal affect/mood, Course Vital Signs Vital signs: Vital Signs Temperature 97.6 F 09/03/25 12:07 Pulse Rate 88 09/03/25 12:07 Respiratory Rate 20 09/03/25 12:07 Blood Pressure 154/87 H 09/03/25 12:07 Pulse Oximetry 98 09/03/25 12:07 Oxygen Delivery Room Air 09/03/25 12:07 Temperature 98.4 F 09/03/25 14:48 Pulse Rate 84 09/03/25 14:48 Respiratory Rate 16 09/03/25 14:48 Blood Pressure 121/89 09/03/25 14:48 Pulse Oximetry 99 09/03/25 14:48 Oxygen Delivery Room Air 09/03/25 12:07 MDM - Back Pain/Injury MDM Narrative Medical decision making narrative: 75-year-old male Presenting for low back pain. On initial evaluation patient was in no acute distress afebrile, hemodynamic stable. Differentials include but are not limited to: Fracture, sprain, strain, contusion, displacement of hardware Notable exam findings: Incision to lumbar spine clean/dry/intact, minimal tenderness to palpation. X-ray lumbar spine showed L4-S1 hardware intact. However mild lucency around L4 screws could indicate loosening or even infection. Given the findings on the x-ray, I did discuss the case with on-call Neurosurgery, Dr. Right lord he did look at the images and reported that this was expected postop changes from his standpoint especially since there were no infectious signs on the patient. Patient was able to ambulate throughout the department without any difficulty whatsoever. I discussed findings today with the patient and and he is agreeable for discharge at this time. He was advised follow-up with his surgeon as scheduled. Patient was agreeable to this plan. Given strict return precautions. Medical Records Attestation: I reviewed the patient's medical records. Imaging Data Radiologist's impression: Impressions Lumbar Spine X-Ray 09/03/25 13:36 IMPRESSION: 1. L4-S1 hardware intact. However mild lucency around L4 screws could indicate loosening or even infection. 2. No acute abnormality. Discharge Plan Discharge Clinical Impression: Back pain Qualifiers: Back pain location: low back pain Chronicity: acute Back pain laterality: midline Sciatica presence: without sciatica Qualified Code(s): M54.50 - Low back pain, unspecified Patient Disposition: Home Condition: Stable Instructions: Antibiotic Form, Back Pain (ED) Additional Instructions: Hardware looked good. Follow-up with your neurosurgeon as scheduled. Return to the ED for any new or worsening symptoms. Patient Language: Armenian Prescriptions: No Action famotidine 20 mg tablet 20 mg PO BID aspirin 81 mg tablet,delayed release (DR/EC) 81 mg PO ONCE Patient Comments: EVENING PreserVision AREDS 4,296 mcg-226 mg-90 mg capsule 1 cap PO QAM triamcinolone acetonide 0.1 % cream 1 applic topical BID PRN (Reason: skin irritation) clopidogrel [Plavix] 75 mg tablet 75 mg PO DAILY rosuvastatin 20 mg tablet 20 mg PO DAILY Patient Comments: EVENING sennosides [senna] 8.6 mg tablet 8.6 mg PO BID acetaminophen-codeine 300-30 mg tablet PO latanoprost [Xalatan] 0.005 % drops 1 drp EACH EYE HS metoprolol succinate 25 mg tablet extended release 24 hr 12.5 mg PO QAM acetaminophen [Acetaminophen Pain Relief] 500 mg tablet 500 mg PO Q6H PRN (Reason: pain) Refresh Optive Advanced (PF) 0.5-1-0.5 % dropperette 1 drp EACH EYE TID PRN (Reason: dry eye(s)) clonazepam 0.5 mg tablet,disintegrating 0.5 mg PO BID PRN (Reason: anxiety) furosemide 20 mg tablet 20 mg PO DAILY PRN (Reason: edema) hydrocodone-acetaminophen 5-325 mg Tablet 1 tablet PO Q4H PRN (Reason: Mild Pain (1-3)) 7 Days Qty: 42 0RF sennosides-docusate sodium [Senokot-S] 8.6-50 mg Tablet 1 tab-cap PO BID 7 Days Qty: 14 0RF cyclobenzaprine 10 mg Tablet 10 mg PO TID PRN (Reason: Muscle Spasms) Qty: 30 0RF finasteride 5 mg tablet 5 mg PO DAILY Qty: 90 3RF Patient Comments: EVENING Follow-up/Referrals: Rosanne Verdugo DO [Physician, Family Practice]
[2025-09-03 14:48] VITALS: BP 121/89; PULSE 84; RESP 16; TEMP 36.9; O2SAT 99
== END 2025-09-03 15:11 | disposition home or self-care (01) ==
PROVIDERS: Emergency Provider Student in an Organized Health Care Education/Training Program; PCP Family Medicine Adolescent Medicine
DX: M54.50 Low back pain, unspecified (principal); I25.10 Atherosclerotic heart disease of native coronary artery without angina pectoris; K21.9 Gastro-esophageal reflux disease without esophagitis; Z98.1 Arthrodesis status; Z95.1 Presence of aortocoronary bypass graft; Z87.891 Personal history of nicotine dependence; Z79.82 Long term (current) use of aspirin; Z79.899 Other long term (current) drug therapy
CPT/HCPCS: 72100; 99283

== ENCOUNTER 2025-09-09 15:19 | Outpatient (CLI) | payer BC, SELFPAY ==
--- NOTE | ~2025-09-09 | CT_ITS ---
EXAMINATION: CT abdomen pelvis w con DATE: 09/09/2025 15:58 INDICATION: Right lower quadrant abdominal pain TECHNIQUE: Computed tomography (CT) of the abdomen and pelvis was performed with 100 mL Omnipaque-350 intravenous contrast. Automated exposure control and iterative reconstruction technique were employed. The dose-length product was 280.47 mGy-cm. COMPARISON: 06/09/2023 FINDINGS: Couple small regions of tree-in-bud opacities in the right lower lobe with associated mild groundglass opacities and peripheral patchy consolidation posteriorly suspicious for pneumonia. Mild cardiomegaly. Atherosclerotic coronary artery calcifications unchanged prior median sternotomy and coronary artery bypass grafting. Aortic valve cast dictation. No pericardial or pleural effusion. Small to moderate-sized sliding-type hiatal hernia. Focal hepatic steatosis at the ligamentum teres. Gallbladder, spleen, pancreas, bilateral adrenal glands and kidneys are normal. Mild scattered diverticulosis with descending and sigmoid colon predominance and without adjacent from trace stranding to suggest diverticular colitis. Small bowel and appendix are normal. Bladder is normal. No free intraperitoneal gas or fluid. No pathologically enlarged abdominal or pelvic lymphadenopathy. There is calcified atherosclerosis of the aorta and many of the other arteries. Chronic mild likely physiologic anterior wedging at T12. Transitional thoracolumbar and lumbosacral segments with hypoplastic right-sided rib which was designated L1 and with right-sided l umbarization at S1. 5 mm anterolisthesis L5 on S1. Mild lumbar levocurvature with moderate to severe spondylosis. L4 and L5 laminectomies and L4-S1 instrumented anterior and posterior spinal fusion with interbody fusion devices at both levels and bilateral L4-S1 vertical juliet and pedicle screw fixation. IMPRESSION: 1. New tree-in-bud opacities and dependent consolidation in the right lower lobe concerning for aspiration and/or pneumonia. 2. No acute intra-abdominal/pelvic process. 3. Small to moderate-sized sliding-type hiatal hernia. Reviewed, dictated and finalized at location A. CAL SUPPORT SPECIALIST IMPRESSION: 1. New tree-in-bud opacities and dependent consolidation in the right lower lob e concerning for aspiration and/or pneumonia. 2. No acute intra-abdominal/pelvic process. 3. Small to moderate-sized sliding-type hiatal hernia.
--- OUTSIDE RECORDS SUMMARY | 2025-09-09 15:24 | XMS_ITS | Clinical Summary ---
Author Organization [facility] Address [address], [address] [address] Phone Care Team Providers Care 911 Dispatcher Name Role Phone Shabbir White MD Primary Care Provider + Quique Smiley DO Unavailable [phone] Allergies No known active allergies Medications [...] Most Recently Relevant to Health Maintenance Insurance [facility] Care Teams 911 Dispatcher Relationship Specialty Start Date End Date Shabbir White MD PCP - General Family Medicine 08/16/16 Quique Smiley DO Gastroenterology 08/16/16
--- OUTSIDE RECORDS SUMMARY | 2025-09-09 15:24 | XMS_ITS | Clinical Summary ---
Author Organization [facility] Address [address] [place] [address] Care Team Providers Care Rehabilitation Services Aide Name Role Phone Shabbir White MD Primary Care Provider + Source Comments [facility],non-owned Affiliates and Associated Physician Practices is amultiple site organization consisting of ambulatory clinics and hospital sitesin [place], [place], [place] and [place]. This disclosure is being madepursuant to the Care Everywhere program and may not contain all information available regarding this patient. 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 Zac Szymanski. These tests need not be, and therefore are not, approved by the [place] Food and Drug Administration. The tests are used for clinical purposes. Billing Codes Specimen Charges Stain Charges 37489 1 5 3:29 PM CDT DERMATOPATHOLOGY LABORATORY Embedded Images 5 3:29 PM CDT DERMATOPATHOLOGY LABORATORY Pathology/Cytolo gy TISSUE SPECIMEN FROM SKIN / Unknown 07/04/2025 12:00 PM CDT 07/06/2025 9:29 AM CDT Angela Young MD LAB - PATHOLOGY/CYTOLOGY ORDERA BLES Final Result DERMATOPATHOLOGY LABORATORY [facility] - Department of Dermatology [facility] Medicine [address] [place] [address], [address] [phone] from Last 3 Months Insurance [facility] * Guarantor: OSEAS GOMEZ Account Type Relation to Patient Date of Phone Billing Address Personal/Family [address] [place] [address] SELF PAY NO INSURANCE Member Subscriber Plan / Payer (Ef fective for All Dates) Name:Oseas Gomez Member ID:Not on file Relation to Subscriber:Not on file Name:OSEAS GOMEZ Subscriber ID:Not on file Address: [address] [place] [address] Payer ID:Not on file Group ID:Not on file Type:Self Pay Address: [place], [place] ANTH SELF PAY NO INSURANCE Member Subscriber Plan / Payer (Ef fective for All Dates) Name:Oseas Gomez Member ID:Not on file Relation to Subscriber:Not on file Name:OSEAS GOMEZ Subscriber ID:Not on file Address: [address] [place] [id number] Payer ID:Not on file Group ID:Not on file Type:Self Pay Address: [facility] * Guarantor: OSEAS GOMEZ Account Type Relation to Patient Date of Phone Billing Address Personal/Family [address] [place] [id number] SELF PAY NO INSURANCE Member Subscriber Plan / Payer (Ef fective for All Dates) Name:Oseas Gomez Member ID:Not on file Relation to Subscriber:Not on file Name:OSEAS GOMEZ Subscriber ID:Not on file Address: [address] [place] [id number] Payer ID:Not on file Group ID:Not on file Type:Self Pay Address: [facility] * Guarantor: OSEAS GOMEZ Account Type Relation to Patient Date of Phone Billing Address Personal/Family Spouse Care Teams Rehabilitation Services Aide Relationship Specialty Start Date End Date Shabbir White MD [address] [address] PCP - General 11/24/18
--- OUTSIDE RECORDS SUMMARY | 2025-09-09 15:24 | XMS_ITS | Encounter Summary ---
Author Organization [facility] Address [address] [place] [address] Care Team Providers Care Hospital Social Worker Name Role Phone Shabbir White MD Primary Care Provider + Encounter Details Date Type Department Care Team (Late st Contact Info) Description 07/05/2025 Lab Requisition [facility] - DermPath Lab [address] [place] [address] Angela Young MD [address] [place] [address] Neoplasm of unspecified behavior of bone, soft tissue, and skin Social History Tobacco Use Types Packs/Day Years Used Date Smoking Tobacco: Never Assessed Sex and Gender Information Value Date Recorded Sex Assigned at Not on file 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 Billing Codes Specimen Charges Stain Charges 37899 1 3:29 PM CDT DERMATOPATHOLOGY LABORATORY Embedded Images 3:29 PM CDT DERMATOPATHOLOGY LABORATORY Pathology/Cytolo gy TISSUE SPECIMEN FROM SKIN / Unknown 07/04/2025 12:00 PM CDT 07/06/2025 9:29 AM CDT us Angela Young MD LAB - PATHOLOGY/CYTOLOGY ORDERA BLES Final Result DERMATOPATHOLOGY LABORATORY [facility] - Department of Dermatology [address], [address] [phone] documented in this encounter Visit Diagnoses Diagnosis Neoplasm of unspecified behavior of bone, soft tissue, and skin documented in this encounter Care Teams Hospital Social Worker Relationship Specialty Start Date End Date Shabbir White MD [address] [address] PCP - General 11/24/18 documented as of this encounter
--- OUTSIDE RECORDS SUMMARY | 2025-09-09 15:24 | XMS_ITS | Encounter Summary ---
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
--- OUTSIDE RECORDS SUMMARY | 2025-09-09 15:24 | XMS_ITS | Encounter Summary ---
Author Organization [facility] Healthcare Address [address] [place] [address] Care Team Providers Care Door To Door Sales Representative Name Role Phone Shabbir White MD Primary Care Prov ider Kasia Maldonado MD Unavailable [phone] Gera Patricio MD Unavailable [phone] Miscellaneous, Not In File Unavailable Unava ilable Encounter Details Date Type Department Care Team (Late st Contact Info) Description 02/02/2025 [facility] Post Discharge Follow up phone call [facility] [address] [place] [address] Evangelina Khan Social History Tobacco Use Types Packs/Day Years Used Date Smoking Tobacco: Former Cigarettes 1 16 1 970 - 1986 Smokeless Tobacco: Never Alcohol Use Standard Drinks/Week Comments Yes 1 (1 standard drink = 0.6 oz pur e alcohol) nightly [facility] Utilities Answer Date Recorded In the past 12 months has Instagram, gas, oil, or water [employer] threatened to shut off services in your [...] often do you attend [facility] or [employer] services? 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
--- OUTSIDE RECORDS SUMMARY | 2025-09-09 15:24 | XMS_ITS | Clinical Summary ---
Author Organization [facility] Address [address] [place] [address] Care Team Providers Care Yield Analyst Name Role Phone Shabbir White MD Primary Care Provider [phone] Allergies No known active allergies Medications famotidine [...] Encounters Date Type Department Care Team Description 07/20/2025 1:30 PM CDT - 07/20/2025 11:59 PM CDT Hospital Encounter [facility] [address] [place] [address] Ky Loya MD Discharge Disposition: Home or Self Care (Routine Discharge) 07/20/2025 Travel 07/14/2025 6:00 AM CDT - 07/14/2025 11:59 PM CDT Hospital Encounter [facility] [address] [place] [address] Gera Patricio MD Discharge Disposition: Home or Self Care (Routine Discharge) 07/14/2025 Travel 07/13/2025 6:13 AM CDT - 07/13/2025 11:59 PM CDT Hospital Encounter [facility] [address] [place] [address] Gera Patricio MD Discharge Disposition: Home or Self Care (Routine Discharge) 07/13/2025 Travel 06/30/2025 5:52 AM CDT - 06/30/2025 11:59 PM CDT Hospital Encounter [facility] [address] [place] [address] Gera Patricio MD Discharge Disposition: Home or Self Care (Routine Discharge) 06/30/2025 Travel 06/29/2025 5:58 AM CDT - 06/29/2025 11:59 PM CDT Hospital Encounter [facility] [address] [place] [address] Gera Patricio MD Discharge Disposition: Home or Self Care (Routine Discharge) 06/29/2025 Travel 06/23/2025 5:43 AM CDT - 06/23/2025 11:59 PM CDT Hospital Encounter [facility] [address] [place] [address] Gera Patricio MD Discharge Disposition: Home or Self Care (Routine Discharge) 06/23/2025 Travel 06/22/2025 5:52 AM CDT - 06/22/2025 11:59 PM CDT Hospital Encounter [facility] [address] [place] [address] Gera Patricio MD Discharge Disposition: Home or Self Care (Routine Discharge) 06/22/2025 Travel 06/16/2025 5:52 AM CDT - 06/16/2025 11:59 PM CDT Hospital Encounter [facility] [address] [place] [address] Gera Patricio MD Discharge Disposition: Home or Self Care (Routine Discharge) 06/16/2025 Travel 06/15/2025 5:56 AM CDT - 06/15/2025 11:59 PM CDT Hospital Encounter [facility] [address] [place] [address] Gera Patricio MD Discharge Disposition: Home or Self Care (Routine Discharge) 06/15/2025 Travel 06/13/2025 5:43 AM CDT - 06/13/2025 11:59 PM CDT Hospital Encounter [facility] [address] [place] [address] Gera Patricio MD Discharge Disposition: Home or Self Care (Routine Discharge) 06/13/2025 Travel 06/09/2025 5:41 AM CDT - 06/09/2025 11:59 PM CDT Hospital Encounter [facility] [address] [place] [address] Gera Patricio MD Discharge Disposition: Home or Self Care (Routine Discharge) 06/09/2025 Travel from Last 3 Months Immunizations Immunization [...] - 1-dose 75+ series) 2025 COVID-19 Vaccine (4 - 2024-2 6 season) 2025 07/19/2021, 12/22/2020, 11/24/2020 Influenza Adult (#1) 2025 07/21/2020 Colorectal Cancer Screening Colonoscopy (10 Years) 01/26/2032 01/25/2022, 01/25/2022 Hepatitis A Vaccines Aged Out No long er eligible based on patient's age to complete this topic Meningococcal B Vaccine Aged Out No l [...] Relevant to Health Maintenance Insurance Care Teams Yield Analyst Relationship Specialty Start Date End Date Shabbir White MD [address] [address] PCP - General 08/09/12
--- OUTSIDE RECORDS SUMMARY | 2025-09-09 15:24 | XMS_ITS ---
Author Organization [facility] C Address [address] [place] [address] Care Team Providers Care Board Certified Family Physician Name Role Phone Shabbir White MD Primary Care Prov ider Kasia Maldonado MD Unavailable [phone] Gera Patricio MD Unavailable Miscellaneous, Not [...] now. Assessment & Plan (09/09/2023 1:08 PM LINUX SYSTEM ADMIN): 2/2 RK OU, patient having issues with I/R and having other health issues Would like to return lenses and try again at another time. Will return [place] lenses and RTC for refit in future [...] next exam OS RTC for dispense reF# [id number] Assessment & Plan (05/23/2023 4:00 PM CDT): 2/2 RK OU, possible OHx of amblyopia OD; patient states that OD (even prior to RK) has never seen as well as OS Educated patient on options, corneal GP (would need reverse kate design) vs scleral Patient concerned about dryness and comfort, will go ahead with scleral fit today Today with [place] 16.0, excellent comfort OU: OD: 450um central, minimal limbal. Slighlt toe impingement 360, better periphery with flat lens OS: 450um central, minimal limbal. Slight toe impitngement 360, better periphery with flat and better vision with FSE2 Flat periphery / FSE2 / aim for 280um central clearance with adjustments today BCVA 20/30- OD; 20/25-- OS RTC for dispense Ref# [id number] Assessment & Plan (12/11/2022 4:19 PM LINUX SYSTEM ADMIN): Patient is s/p 1 cut RK OU and has to change between several pairs of glasses through the day due to fluctuations in refractive error. Pt has been told about scleral lenses in the past and is interested in trying them. Will consult with Dr. Rivera and schedule and evaluation. Retinal drusen of both eyes 06/05/2022 Assessment & Plan (12/11/2022 4:19 PM LINUX SYSTEM ADMIN): Mild and stable. F/u annually. Assessment & [...] CPM. Assessment & Plan (11/28/2021 1:23 PM LINUX SYSTEM ADMIN): Continue ATs prn. Assessment & Plan (05/30/2021 2:28 PM CDT): PF ATs prn. Assessment & Plan (01/31/2021 1:46 PM CDT): Well controlled with artificial tears. CPM Assessment & Plan (12/13/2020 1:16 PM LINUX SYSTEM ADMIN): Pt feels his symptoms are well controlled [...] 10/26/2019 Assessment & Plan (10/29/2019 7:17 PM LINUX SYSTEM ADMIN): Chest pain is atypical in that it occurs only sometimes in his in various locations of his chest. I am suspicious that it is musculoskeletal, but would recommend a stress test. As his EKG is normal, imaging is not required. Biceps tendinitis of right upper extremity 11/25 Overview (11/25/2018): Added automatically from request for surgery [id number] Incomplete tear of right rotator cuff 11/25/2018 Overview (11/25/2018): Added automatically from request for surgery [id number] Open angle with borderline f indings and [...] ck. Assessment & Plan (12/11/2022 4:18 PM LINUX SYSTEM ADMIN): Mild OAG vs suspect. Started on tx [...] ck. Assessment & Plan (11/28/2021 1:23 PM LINUX SYSTEM ADMIN): Mild OAG vs suspect. IOP well controlled [...] irritation. Assessment & Plan (12/13/2020 1:21 PM LINUX SYSTEM ADMIN): IOP stable on 1 class. Travatan is [...] OU Assessment & Plan (12/11/2022 4:19 PM LINUX SYSTEM ADMIN): S/p RK OU Assessment & Plan (06/05/2022 3:57 PM CDT): S/p 16 incision RK. Stable. Observe. Assessment & Plan (11/28/2021 1:23 PM LINUX SYSTEM ADMIN): S/p 16 incision RK OU Assessment & [...]
--- OUTSIDE RECORDS SUMMARY | 2025-09-09 15:24 | XMS_ITS | Clinical Summary ---
Author Organization [facility] C Address [address] [place] [address] Care Team Providers Care Telesales Supervisor Name Role Phone Shabbir White MD Primary Care Prov ider Kasia Maldonado MD Unavailable [phone] Gera Patricio MD Unavailable [phone] Miscellaneous, Not In File Unavailable Unava ilable [...] extended release tabletIndications: 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 Take 0.5 [...] now. Assessment & Plan (09/09/2023 1:08 PM FASHION MARKETER): 2/2 RK OU, patient having issues with I/R and having other health issues Would like to return lenses and try again at another time. Will return [place] lenses and RTC for refit in future [...] next exam OS RTC for dispense reF# [id number] Assessment & Plan (05/23/2023 4:00 PM CDT): 2/2 RK OU, possible OHx of amblyopia OD; patient states that OD (even prior to RK) has never seen as well as OS Educated patient on options, corneal GP (would need reverse kate design) vs scleral Patient concerned about dryness and comfort, will go ahead with scleral fit today Today with [place] 16.0, excellent comfort OU: OD: 450um central, minimal limbal. Slighlt toe impingement 360, better periphery with flat lens OS: 450um central, minimal limbal. Slight toe impitngement 360, better periphery with flat and better vision with FSE2 Flat periphery / FSE2 / aim for 280um central clearance with adjustments today BCVA 20/30- OD; 20/25-- OS RTC for dispense Ref# [id number] Assessment & Plan (12/11/2022 4:19 PM FASHION MARKETER): Patient is s/p 1 cut RK OU and has to change between several pairs of glasses through the day due to fluctuations in refractive error. Pt has been told about scleral lenses in the past and is interested in trying them. Will consult with Dr. Rivera and schedule and evaluation. Retinal drusen of both eyes 06/05/2022 Assessment & Plan (12/11/2022 4:19 PM FASHION MARKETER): Mild and stable. F/u annually. Assessment & [...] CPM. Assessment & Plan (11/28/2021 1:23 PM FASHION MARKETER): Continue ATs prn. Assessment & Plan (05/30/2021 2:28 PM CDT): PF ATs prn. Assessment & Plan (01/31/2021 1:46 PM CDT): Well controlled with artificial tears. CPM Assessment & Plan (12/13/2020 1:16 PM FASHION MARKETER): Pt feels his symptoms are well controlled [...] 10/26/2019 Assessment & Plan (10/29/2019 7:17 PM FASHION MARKETER): Chest pain is atypical in that it occurs only sometimes in his in various locations of his chest. I am suspicious that it is musculoskeletal, but would recommend a stress test. As his EKG is normal, imaging is not required. Biceps tendinitis of right upper extremity 11/25 Overview (11/25/2018): Added automatically from request for surgery [id number] Incomplete tear of right rotator cuff 11/25/2018 Overview (11/25/2018): Added automatically from request for surgery [id number] Open angle with borderline f indings and [...] ck. Assessment & Plan (12/11/2022 4:18 PM FASHION MARKETER): Mild OAG vs suspect. Started on tx [...] ck. Assessment & Plan (11/28/2021 1:23 PM FASHION MARKETER): Mild OAG vs suspect. IOP well controlled [...] irritation. Assessment & Plan (12/13/2020 1:21 PM FASHION MARKETER): IOP stable on 1 class. [place] is [...] OU Assessment & Plan (12/11/2022 4:19 PM FASHION MARKETER): S/p RK OU Assessment & Plan (06/05/2022 3:57 PM CDT): S/p 16 incision RK. Stable. Observe. Assessment & Plan (11/28/2021 1:23 PM FASHION MARKETER): S/p 16 incision RK OU Assessment & Plan (05/30/2021 2:28 PM CDT): Hx of RK. Observe. Squamous cell carcinoma of skin of face 11/01/19 16 History of nonmelanoma skin cancer 09/26/2015 Dysesthesia 09/30/2014 Skin cancer 08/26/2014 Vitamin D deficiency disease 11/30/2013 Pain in soft tissues of limb 06/11/2011 Osteopenia 03/25/2011 Encounters Date Type Department Care Team Description 08/19/2025 Telephone [facility] Medicine Ophthalmology [address] [place] [id number] Sai Lo OD Reschedule Request 07/27/2025 Telephone [facility] Cardiology [address] [place] [phone] Gera Patricio MD Fatigue; Anxiety 07/06/2025 Telephone [facility] Cardiology [address] [place] [phone] Gera Patricio MD teeth cleaning 07/05/2025 2:45 PM CDT Office Visit [facility] [address] [place] [phone] Gera Patricio MD 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 (Primary Dx); Essential hypertension; Hyperlipidemia LDL goal <70; Bilateral lower extremity edema from Last 3 Months Surgical History Surgery Date Site/Laterality Comments CATARACT EXTRACTION Cataract Surgery KERATOPLASTY RADIAL KERATOTOMY 10/20/1988 - 10/19/1989 Bilateral MOHS SURGERY 10/20/2018 - 11/19/2018 neck COLONOSCOPY ~2015 UPPER GASTROINTESTINAL ENDOSCOPY 10/20/2018 - 10/19/2019 SPERMATOCELECTOMY ~2017 EPIDIDYMECTOMY ORCHIECTOMY Right CARDIAC CATHETERIZATION 01/20/2025 N/A Procedure: LEFT HEART CATHETERIZATION WITH CORONARY ANGIOGRAPHY AND WITH OR WITHOUT LEFT VENTRICULOGRAM 23459; Surgeon: Jassi Nur MD; Location: CARDIAC ENVIRONMENTAL 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 Never 01/31/2025 Do you belong to any clubs o r organizations such as amish groups, unions, fraternal or athletic groups, or [...] any time in the past 12 m [facility], were you homeless or living in a long term (including now)? No 01/31/2025 Personal Safety Answer Date Recorded Have you ever been in or are you currently in a harmful physical or emotional relationship or is someone making you feel afraid or unsafe? Denies 01/26/2025 Sex and Gender Information Value Date Recorded Sex Assigned at Not on file Legal Sex Male 2:36 AM FASHION MARKETER Gender Identity Not on file Sexual Orientation [...] 03/01/2024, 10/07/2023 Medical Devices Implanted Type Area Mechanical Fitter Device Identifier Shelf Expiration Date Model / Serial / Lot [employer] Plate Bone Low Profile 4 Hole Box Sternum Ti 115.103.04 - [id number] Implanted:Qty: 1 on 01/26/2025 by Kasia Maldonado MD at [facility] Plate N/A: Sternum [employer] 115.103.04 / / [employer] Plate Bone Low Profile 6 Hole H Shape Sternum Ti 115.102.06 - [id number] Implanted:Qty: 1 on 01/26/2025 by Kasia Maldonado MD at [facility] Plate N/A: Sternum [employer] 115.102.06 / / [employer] Plate Bone Low Profile 6 Hole O Shape Sternum Ti 115.104.06 - [id number] Implanted:Qty: 1 on 01/26/2025 by Kasia Maldonado MD at [facility] Plate N/A: Sternum [employer] 115.104.06 / / [employer] Screw Bone Slf Drl Full Thread Locking 3.5x18mm Ti 100.035.18 - [id number] Implanted:Qty: 16 on 01/26/2025 by Kasia Maldonado MD at [facility] Screw N/A: Sternum [employer] 100.035.18 / / Insurance [facility] [employer] MEDICARE MEDICARE [facility] [employer] Advance Directives For more information, please contact: [phone] * Full Code (Latest Code Status on File) Date Activated Date Inactivated Comments 01/26/2025 4:03 PM 01/31/2025 9:06 PM Care Teams Telesales Supervisor Relationship Specialty Start Date End Date Shabbir White MD PCP - General 02/07/17 Kasia Maldonado MD Surgeon Cardiothoracic Surgery 01/31/25 Gera Patricio MD [address] [place] [address] Consulting Physician Cardiology 01/31/25 Miscellaneous, Not In File 01/31/25
[2025-09-09 15:44] LABS: Estimated Glomerular Filt Rate > 60
== END 2025-09-09 15:20 | disposition home or self-care (01) ==
PROVIDERS: PCP Nurse Practitioner Family; Visit Provider Nurse Practitioner Family
DX: R91.8 Other nonspecific abnormal finding of lung field (principal); J18.9 Pneumonia, unspecified organism; K44.9 Diaphragmatic hernia without obstruction or gangrene
CPT/HCPCS: 74177; Q9967

== ENCOUNTER 2025-09-28 12:24 | Outpatient (CLI) | payer BC, SELFPAY ==
--- NOTE | ~2025-09-28 | XR_ITS ---
XR lumbar spine 2-3V Indication: POST OP LSPINE FUSION x6 WKS AGO Comparison: None Findings: Mild levoconvex scoliosis. Posterior fixation L5, L4 and L3 with disc prostheses, the hardware is intact. No fracture or subluxation. Moderate to severe loss of the remaining disc height. Soft tissues unremarkable Impression: No acute abnormality. Reviewed, dictated and finalized at location P. TIC WELDER Impression: No acute abnormality.
== END 2025-09-28 12:25 | disposition home or self-care (01) ==
LOC: MICIMG 12:25
PROVIDERS: PCP Nurse Practitioner Family; Visit Provider Neurological Surgery
DX: M47.816 Spondylosis without myelopathy or radiculopathy, lumbar region (principal); M43.26 Fusion of spine, lumbar region; Z96.698 Presence of other orthopedic joint implants
CPT/HCPCS: 72100